=== PATIENT | female | born 1950 | race Caucasian/White ===

== ENCOUNTER 2020-06-12 12:39 | Outpatient (CLI) | payer MEDICARE, SELFPAY ==
--- NOTE | ~2020-06-12 | DEXA_ITS ---
Bone Density Report Name: Aida Nguyen Age: 69 Sex: Female Ethnicity: White Date of : 1950 Indication: postmenopausal; height loss; prior fracture; cancer; asthma or emphysema; hysterectomy; Referring Provider: RICHARD BLAS Study: Bone densitometry was performed. Exam Date: June 12, 2020 Accession number: [id number] Bone Density: Region BMD T-score Z-score Classification AP Spine (L1, L2, L3) 0.710 -2.8 -0.7 Osteoporosis Femoral Neck (Left) 0.485 -3.3 -1.5 Osteoporosis Total Hip (Left) 0.638 -2.5 -1.0 Osteoporosis Total Hip Bilateral Avg 0.616 -2.7 -1.2 Osteoporosis Femoral Neck (Right) 0.442 -3.7 -1.8 Osteoporosis Total Hip (Right) 0.592 -2.9 -1.3 Osteoporosis World Health Organization criteria for BMD impression classify patients as: Normal (T-score at or above -1.0), Osteopenia (T-score between -1.0 and -2.5), or Osteoporosis (T-score at or below -2.5). 10-year Fracture Risk: FRAX not reported because: Some T-score for Spine Total or Hip Total or Femoral Neck at or below -2.5 Clinical Information Provided by Patient: Has had a low trauma fracture Has the following medical conditions: Asthma or Emphysema, Cancer, Hysterectomy Patient maximum height was 61.5 Menopause Age: 37 Does not regularly consume dairy products Onset of menses at age 9 Number of children 0 Impression: The patient has established osteoporosis, based on the Right Femoral Neck T-score and the existence of a prior fracture. The patient has risk factors, including: previous fracture. Discussion: HIGH RISK OF FRACTURE. BONE DENSITY IS UNDESIRABLY LOW AT ONE OR MORE SKELETAL SITES, CONSISTENT WITH POSTMENOPAUSAL OSTEOPOROSIS. This patient's lowest T-score, in a patient who has previously fractured, meets the World Health Organization's (WHO) criteria for severe osteoporosis. In untreated patients, the risk of osteoporotic fracture increases approximately two-fold for each 1.0 SD decrease in T-score. Low bone density is not the only risk factor for fracture; also consider factors such as patient's age, frailty or poor health, risk of falling, risk of injury, previous osteoporotic fracture, family history of osteoporosis, cigarette smoking, low body weight, etc. Not everyone with low bone mineral density has osteoporosis; osteomalacia and other metabolic bone disorders should also be considered. Patients who have osteoporosis should be evaluated for specific diseases and conditions (secondary causes) that may cause or contribute to bone loss. The [place] [employer]ocr[employer] (AACE) and National Osteoporosis Foundation (NOF) recommend pharmacologic intervention for all postmenopausal women whose T-score is in this range. The patient should follow a healthful lifestyle (good nutrition with adequate calcium and vitamin D,
== END 2020-06-12 12:40 | disposition home or self-care (01) ==
LOC: ANHIMG 12:47
DX: Z78.0 Asymptomatic menopausal state (principal); M81.0 Age-related osteoporosis without current pathological fracture
CPT/HCPCS: 77080

== ENCOUNTER 2020-08-13 10:25 | Outpatient (CLI) | payer MEDICARE, SELFPAY ==
--- NOTE | ~2020-08-13 | XR_ITS ---
XR cervical spine 4-5V DATE: 08/13/2020 10:50 INDICATION: Bilateral arm numbness. Skin anesthesia. No recent injury. TECHNIQUE: Lateral, swimmer's, open-mouth, AP views COMPARISON: None FINDINGS: There is minimal anterolisthesis at C6-7. There is mild degenerative disc disease at C3-4 t hrough C5-6. C1 and C2 are normally aligned and the odontoid process is intact. No fracture or dislocation or lock ed facet or prevertebral soft tissue swelling is detected. IMPRESSION: Minimal anterolisthesis at C6-7 Mild degenerative disc disease of the mid cervical spine Reviewed, dictated and finalized at location A.
[2020-08-13 11:29] LABS: Basophils Percent Auto 0.7 % (0.2-1.2); Eosinophils Absolute Auto 0.4 K/mm3 (0-0.3); Eosinophils Percent Auto 6.7 % (0-4.4); Hematocrit 42.9 % (37.0-47.0); Hemoglobin 14.6 g/dL (12.0-15.0); Immature Granulocyte Absolute 0.02 K/mm3 (0.00-0.031); Immature Granulocyte Percent A 0.3 % (0-0.5); Lymphocytes Absolute Auto 2.03 K/mm3 (0.9-3.2); Lymphocytes Percent Auto 33.1 % (18.3-44.2); Mean Corpuscular Volume 94.1 fl (80-100); Mean Platelet Volume 11.2 fl (7.4-10.4); Monocytes Absolute Auto 0.5 K/mm3 (0.1-0.6); Monocytes Percent Auto 7.5 % (2.6-8.5); Neutrophils Absolute Auto 3.2 K/mm3 (1.3-6.7); Neutrophils Percent Auto 51.7 % (45.5-73.1); Platelet Count Result 219 k/mm3 (150-375); Red Blood Count 4.56 M/mm3 (4.2-5.4); Red Cell Distribution Width 14.2 % (11.5-14.5); White Blood Count 6.1 K/mm3 (4.5-10.0)
[2020-08-13 11:40] LABS: Alanine Aminotransferase 25 U/L (4-35); Albumin Level 4.3 g/dL (3.5-5.1); Alkaline Phosphatase 74 U/L (38-126); Anion Gap 7 mmol/L (8-16); Aspartate Amino Transferase 27 U/L (14-36); Bilirubin,Total 0.8 mg/dL (0.2-1.3); Blood Urea Nitrogen 10 mg/dL (7-17); Calcium 9.5 mg/dL (8.4-10.2); Carbon Dioxide 27 mmol/L (22-30); Chloride 105 mmol/L (98-107); Estimated Glomerular Filt Rate > 60; Glucose 95 mg/dL (65-105); Potassium 3.9 mmol/L (3.4-5.0); Sodium 139 mmol/L (137-145)
== END 2020-08-13 10:26 | disposition home or self-care (01) ==
PROVIDERS: PCP Family Medicine; Visit Provider Family Medicine
DX: I25.10 Atherosclerotic heart disease of native coronary artery without angina pectoris (principal); R20.0 Anesthesia of skin; M89.8X9 Other specified disorders of bone, unspecified site; M50.30 Other cervical disc degeneration, unspecified cervical region
CPT/HCPCS: 36415; 72050; 80053; 82607; 85025

== ENCOUNTER 2020-09-30 10:36 | Outpatient (CLI) | payer MEDICARE, SELFPAY | END 2020-09-30 10:37 | disposition home or self-care (01) | LOC: ANHLAB 10:40 | PROVIDERS: PCP Family Medicine; Visit Provider Nurse Practitioner Family | DX: E53.8 Deficiency of other specified B group vitamins (principal) | CPT/HCPCS: 36415; 82607 ==

== ENCOUNTER 2020-11-08 08:46 | Outpatient (CLI) | payer MEDICARE, SELFPAY ==
--- NOTE | 2020-11-08 | EST_ITS ---
Patient Info Name: Aida Nguyen Age: 69 years : 1950 Gender: Female Ht: 61 in Wt: 109 lbs BSA: 1.46 m2 Exam Date: 11/08/2020 9:55 AM Exam Location: [facility] Stress Patient Status: Outpatient Admit Date: 11/08/2020 Staff Ordering Physician: Esteban Dueñas MD Attending Provider: Esteban Dueñas MD Exercise Technologist: Gloria Jacobs RDCS Exercise Physician: Perez Lerma DO Exam Type: CA stress oneyda w NM Study Info Indications I25.119 - Atherosclerotic heart disease of [place] coronary artery with unspecified angina pectoris A regadenoson stress test was performed. Summary 1. 1. Negative lexiscan stress test for ischemic ST changes by ECG criteria. 2. 2. Stable hemodynamics throughout the test. 3. 3. Nuclear scan to follow and will be reported separately. Please correlate with it. 4. 4. Patient informed of the above results. Protocol: Lexiscan Stress ECG Details Stage: REST Duration (min): 4 min : 17 sec HR (bpm): 63 SBP (mmHg): 140 DBP (mmHg): 72 Stage: REST Duration (min): 14 min : 39 sec HR (bpm): 65 SBP (mmHg): 140 DBP (mmHg): 72 Stage: STAGE 1 Duration (min): 1 min : 0 sec HR (bpm): 67 SBP (mmHg): 145 DBP (mmHg): 69 Stage: RECOVERY Duration (min): 1 min : 0 sec HR (bpm): 88 SBP (mmHg): 122 DBP (mmHg): 59 Stage: RECOVERY Duration (min): 2 min : 0 sec HR (bpm): 89 SBP (mmHg): 122 DBP (mmHg): 59 Stage: RECOVERY Duration (min): 3 min : 0 sec HR (bpm): 87 SBP (mmHg): 126 DBP (mmHg): 61 Stage: RECOVERY Duration (min): 4 min : 0 sec HR (bpm): 86 SBP (mmHg): 126 DBP (mmHg): 61 Stage: RECOVERY Duration (min): 5 min : 0 sec HR (bpm): 86 SBP (mmHg): 131 DBP (mmHg): 68 Stage: RECOVERY Duration (min): 6 min : 0 sec HR (bpm): 84 SBP (mmHg): 131 DBP (mmHg): 68 Stage: RECOVERY Duration (min): 6 min : 47 sec HR (bpm): 81 SBP (mmHg): 128 DBP (mmHg): 68 Rest HR: 65 bpm Peak HR: 90 bpm Rest Sys BP: 140 mmHg Peak Sys BP: 145 mmHg Max Pred HR: 150 bpm % Max Pred HR: 60 % Target HR: 128 bpm Max RPP: 13,050 bpm*mmHg Termination Reason: Completed protocol Cardiac Symptoms: Shortness of breath, Upset stomach Total Time: 1 min : 0 sec Rest Lozoya BP: 72 mmHg Peak Lozoya BP: 69 mmHg Total Dose: 0.4 mg Resting ECG Sinus rhythm. Stress ECG No ST changes. Arrhythmias None. Report Signatures
--- NOTE | ~2020-11-08 | NM_ITS ---
EXAMINATION: NM oneyda stress w perfusion DATE: 11/08/2020 11:00 INDICATION: Coronary atherosclerosis. TECHNIQUE: Rest images were obtained following intravenous administration of 9.58 mCi Tc99m tetrofosm in (Myoview). The patient was infused intravenously with Lexiscan (regadenoson). Then, 30.7 mCi Tc99m tetrofosmin (Myoview) was administered intravenously, and stress images were obtained. Data was priya nstructed into short axis and horizontal and vertical long axis SPECT images. Gated SPECT images were also obtained. COMPARISON: Myocardial perfusion imaging 03/02/2019 FINDINGS: There is no definite reversible or fixed perfusion abnormality to suggest ischemia or infar ction. There is no segmental wall motion abnormality. Left ventricular ejection fraction measures > 70%. IMPRESSION: 1. No definite ischemia or infarct. 2. Normal left ventricular ejection fraction measuring >70%. Reviewed, dictated and finalized at location A.
== END 2020-11-08 08:47 | disposition home or self-care (01) ==
PROVIDERS: PCP Family Medicine
DX: I25.119 Atherosclerotic heart disease of native coronary artery with unspecified angina pectoris (principal)
CPT/HCPCS: 78452; 93017; A9502; J2785

== ENCOUNTER 2020-11-21 11:05 | Outpatient (CLI) | payer MEDICARE, SELFPAY ==
[2020-11-21 12:23] LABS: Rheumatoid Factor < 8.6 IU/ML (<12)
[2020-11-21 13:03] LABS: Erythrocyte Sedimentation Rate 6 mm/hr (0-20)
[2020-11-24 12:46] LABS: CRP, High Sensitivity 0.9 mg/L (***)
== END 2020-11-21 11:06 | disposition home or self-care (01) ==
PROVIDERS: PCP Family Medicine; Visit Provider Family Medicine
DX: M89.8X9 Other specified disorders of bone, unspecified site (principal)
CPT/HCPCS: 36415; 85652; 86038; 86141; 86430

== ENCOUNTER 2021-01-08 10:44 | Outpatient (CLI) | payer MEDICARE, SELFPAY ==
[2021-01-08 12:10] LABS: Free T4 Free Thyroxine 0.93 ng/mL (0.78-2.19)
[2021-01-08 13:29] LABS: Thyroid Stimulating Hormone 0.971 uIU/mL (0.465-4.680)
== END 2021-01-08 10:45 | disposition home or self-care (01) ==
LOC: ANHLAB 10:45
PROVIDERS: PCP Family Medicine; Visit Provider Family Medicine
DX: R53.83 Other fatigue (principal)
CPT/HCPCS: 36415; 84439; 84443

== ENCOUNTER 2021-03-28 09:07 | Emergency (ER) | payer MEDICARE, SELFPAY ==
[2021-03-28 09:31] VITALS: BP 135/79; PULSE 57; RESP 18; TEMP 36.4; O2SAT 96
--- NOTE | 2021-03-28 09:50 | ED.URI ---
HPI - URI/Sore Throat General Chief Complaint: Upper Respiratory Infection Stated Complaint: Possible pneumonia Time Seen by Provider: 03/28/21 09:35 Source: patient, RN notes reviewed and old records reviewed Mode of arrival: ambulatory Limitations: no limitations History of Present Illness MD elicited complaint: cough, nasal congestion and sinus pain Pertinent past history: pneumonia and sinusitis Onset (ago): week(s) (1) Severity: mild Pain scale (0-10): 0 Able to tolerate fluids by mouth: Yes Exacerbating factors: nothing Relieving factors: nothing Associated symptoms: denies other symptoms Treatments prior to arrival: none Related Data Home Medications Medication Instructions Recorded Confirmed atorvastatin 20 mg tablet 20 mg PO DAILY 08/13/20 03/28/21 [id number]-ifyrcjhieacim-zlqmtuuz 1 cap PO Q4H PRN 08/13/20 03/28/21 50 mg-300 mg-40 mg capsule carvedilol 6.25 mg tablet 6.25 mg PO Q12H 08/13/20 03/28/21 cilostazol 100 mg tablet 100 mg PO BID 08/13/20 03/28/21 diphenhydramine HCl 25 mg capsule 50 mg PO Q6H PRN cap 08/13/20 03/28/21 epinephrine 0.3 mg/0.3 mL 0.3 mg IM ONCE 08/13/20 03/28/21 injection, auto-injector fluticasone propionate 50 2 spray INTRANASAL DAILY 08/13/20 03/28/21 mcg/actuation nasal spray,suspension lisinopril 2.5 mg tablet 2.5 mg PO DAILY 08/13/20 03/28/21 nitroglycerin 0.4 mg sublingual 0.4 mg SUBLINGUAL Q5M PRN 08/13/20 03/28/21 tablet promethazine 25 mg tablet 25 mg PO Q6H PRN 08/13/20 03/28/21 ranolazine 500 mg tablet,extended 500 mg PO Q12H 08/13/20 03/28/21 release,12 hr calcium carbonate 600 mg-vitamin 1 tablet PO DAILY 12/26/20 03/28/21 D3 10 mcg (400 unit) tablet cyanocobalamin (vitamin B-12) 1,000 mcg PO DAILY 12/26/20 03/28/21 1,000 mcg capsule Allergies Allergy/AdvReac Type Severity Reaction Status Date / Time aspirin Allergy Unknown UNKNOWN Verified 03/28/21 09:41 caffeine Allergy Unknown UNKNOWN Verified 03/28/21 09:41 cephalexin Allergy Unknown UNKNOWN Verified 03/28/21 09:41 chlorzoxazone Allergy Unknown unknown Verified 03/28/21 09:41 codeine Allergy Unknown UNKNOWN Verified 03/28/21 09:41 doxycycline Allergy Unknown UNKNOWN Verified 03/28/21 09:41 guaifenesin Allergy Unknown UNKNOWN Verified 03/28/21 09:41 naratriptan Allergy Unknown UNKNOWN Verified 03/28/21 09:41 orphenadrine Allergy Unknown UNKNOWN Verified 03/28/21 09:41 Penicillins Allergy Unknown UNKNOWN Verified 03/28/21 09:41 prochlorperazine Allergy Unknown UNKNOWN Verified 03/28/21 09:41 propoxyphene Allergy Unknown UNKNOWN Verified 03/28/21 09:41 Sulfa (Sulfonamide Allergy Unknown unknown Verified 03/28/21 09:41 Antibiotics) tetracycline Allergy Unknown UNKNOWN Verified 03/28/21 09:41 iodine Allergy Anaphylaxis Verified 03/28/21 09:41 melon Allergy Unknown Verified 03/28/21 09:42 strawberry Allergy Anaphylaxis Verified 03/28/21 09:41 vaccine Allergy Unknown Uncoded 03/28/21 09:41 Review of Systems Review of Systems: All systems reviewed & are unremarkable except as noted in HPI and below PMFSH Past Medical History Medical History Bone pain Cervical spondylosis Coronary artery disease History of uterine cancer Low vitamin B12 level Migraine Numbness of extremity Osteoporosis Surgical History Surgical History History of heart artery stent History of hernia repair History of hysterectomy History of laminectomy History of laparoscopic appendectomy History of tonsillectomy and adenoidectomy Family History Family History Other Alcohol abuse Asthma Heart disease Hypertension Social History Social History Alcohol intake: current Exam Const: General: no acute distress and alert Orientation/consciousness: patient oriented x3 HENMT: Head: n
[2021-03-28] MEDS: ACETAMINOPHEN 325 MG TABLET 650 MG PO (09:54)
[2021-03-28 10:25] VITALS: BP 134/76; PULSE 72; RESP 16; O2SAT 95
== END 2021-03-28 10:26 | disposition home or self-care (01) ==
PROVIDERS: Emergency Provider Emergency Medicine; PCP Family Medicine
DX: J01.90 Acute sinusitis, unspecified (principal); J06.9 Acute upper respiratory infection, unspecified; I25.10 Atherosclerotic heart disease of native coronary artery without angina pectoris; M81.0 Age-related osteoporosis without current pathological fracture
CPT/HCPCS: 99283; A9270

== ENCOUNTER 2021-07-30 09:12 | Emergency (ER) | payer MEDICARE, SELFPAY ==
[2021-07-30 09:18] VITALS: BP 141/79; PULSE 77; RESP 18; TEMP 37.4; O2SAT 99
--- NOTE | 2021-07-30 09:48 | ED.SKABFB ---
HPI - Skin/Abscess/Foreign Bdy General Chief complaint: Skin/Abscess/Foreign Body Stated complaint: Insect Bites Time Seen by Provider: 07/30/21 10:02 Source: patient and RN notes reviewed Mode of arrival: ambulatory Limitations: no limitations History of Present Illness HPI narrative: 70-year-old female presents concern for insect bites that she fears is infected. She reports she received the bites yesterday, has been using Benadryl 50 mg every 4 hours without improvement. She reports the bite in her right axillary area is tender, becoming more red and swollen. She reports a center scab. She reports history of staph infection after an insect bite. She denies other intervention. She denies swollen lips, swollen tongue, trouble breathing. She denies fever, body aches, chills, sweats MD complaint: insect bite/sting Related Data Home Medications Medication Instructions Recorded Confirmed atorvastatin 20 mg tablet 20 mg PO DAILY 08/13/20 07/29/21 avtpwendoo-csmujawhlswwo-rnylunpu 1 cap PO Q4H PRN 08/13/20 07/29/21 50 mg-300 mg-40 mg capsule carvedilol 6.25 mg tablet 6.25 mg PO Q12H 08/13/20 07/29/21 cilostazol 100 mg tablet 100 mg PO BID 08/13/20 07/29/21 diphenhydramine HCl 25 mg capsule 50 mg PO Q6H PRN cap 08/13/20 07/29/21 epinephrine 0.3 mg/0.3 mL 0.3 mg IM ONCE PRN 08/13/20 07/29/21 injection, auto-injector fluticasone propionate 50 2 spray INTRANASAL DAILY 08/13/20 07/29/21 mcg/actuation nasal spray,suspension lisinopril 2.5 mg tablet 2.5 mg PO DAILY 08/13/20 07/29/21 nitroglycerin 0.4 mg sublingual 0.4 mg SUBLINGUAL Q5M PRN 08/13/20 07/29/21 tablet ranolazine 500 mg tablet,extended 500 mg PO Q12H 08/13/20 07/29/21 release,12 hr calcium carbonate 600 mg-vitamin 1 tablet PO DAILY 12/26/20 07/29/21 D3 10 mcg (400 unit) tablet cyanocobalamin (vitamin B-12) 1,000 mcg PO DAILY 12/26/20 07/29/21 1,000 mcg capsule Allergies Allergy/AdvReac Type Severity Reaction Status Date / Time tizanidine Allergy Mild Unknown Verified 07/30/21 09:41 aspirin Allergy Unknown UNKNOWN Verified 07/30/21 09:41 caffeine Allergy Unknown UNKNOWN Verified 07/30/21 09:41 cephalexin Allergy Unknown UNKNOWN Verified 07/30/21 09:41 chlorzoxazone Allergy Unknown unknown Verified 07/30/21 09:41 codeine Allergy Unknown UNKNOWN Verified 07/30/21 09:41 doxycycline Allergy Unknown UNKNOWN Verified 07/30/21 09:41 guaifenesin Allergy Unknown UNKNOWN Verified 07/30/21 09:41 naratriptan Allergy Unknown UNKNOWN Verified 07/30/21 09:41 orphenadrine Allergy Unknown UNKNOWN Verified 07/30/21 09:41 Penicillins Allergy Unknown UNKNOWN Verified 07/30/21 09:41 prochlorperazine Allergy Unknown UNKNOWN Verified 07/30/21 09:41 propoxyphene Allergy Unknown UNKNOWN Verified 07/30/21 09:41 Sulfa (Sulfonamide Allergy Unknown unknown Verified 07/30/21 09:41 Antibiotics) tetracycline Allergy Unknown UNKNOWN Verified 07/30/21 09:41 iodine Allergy Anaphylaxis Verified 07/30/21 09:41 melon Allergy Unknown Verified 07/30/21 09:41 strawberry Allergy Anaphylaxis Verified 07/30/21 09:41 vaccine Allergy Unknown Uncoded 07/29/21 16:01 Review of Systems Review of Systems: CONSTITUTIONAL: Denies malaise, chills, sweats, or fever. EYES: Denies redness, or discharge. ENT: Denies rhinorrhea, congestion, swollen lips, swollen tongue CARDIOVASCULAR: Denies chest pain, palpitations, or edema. RESPIRATORY: Denies cough or dyspnea. GASTROINTESTINAL: Denies abdominal pain, nausea, vomiting SKIN: Reports an insect bite on her left arm that is red and itchy, reports an insect bite in her right axillary area that is tender, red, swollen. MUSCULOSKELETAL: Denies joint painor myalgia. NEUROLOGIC: Denies headache. All systems reviewed & are unremarkable except as noted in HPI and below PMFSH Past Medical History Medical History (Updated 07/30/21 @ 10:08 by Oanh Fang NP) Bone pain Bronchitis Cervical spondylosis Coronary artery disease History of uterine cancer
== END 2021-07-30 10:18 | disposition home or self-care (01) ==
PROVIDERS: Emergency Provider Nurse Practitioner; PCP Family Medicine
DX: L03.319 Cellulitis of trunk, unspecified (principal); S40.861A Insect bite (nonvenomous) of right upper arm, initial encounter; W57.XXXA Bitten or stung by nonvenomous insect and other nonvenomous arthropods, initial encounter; M47.812 Spondylosis without myelopathy or radiculopathy, cervical region; I25.10 Atherosclerotic heart disease of native coronary artery without angina pectoris; M81.0 Age-related osteoporosis without current pathological fracture
CPT/HCPCS: 99213; G0463

== ENCOUNTER 2021-08-18 01:53 | Day surgery (SDC) | payer MEDICARE, SELFPAY ==
[2021-07-21 09:00] VITALS: BMI 19.8
--- NOTE | 2021-07-29 16:03 | PC.NURSE ---
Spoke with pt re rescheduled EGD. Update pt on new procedure date/time/arrival time. Pt verbalized understanding. Pt denies any changes to home medications or health history since previous PAT call complete.
--- NOTE | 2021-08-18 07:10 | PM.HPGS ---
History of Present Illness History of Present Illness Consent: Risks, benefits, and alternatives have been discussed and questions answered. Patient agrees to proceed with procedure. Chief complaint: N & V Narrative: Aida Nguyen is a 70 year old female With nausea and vomiting. She has also been having upper abdominal pain. the pain is not related to meals. She has had chronic nausea since she was treated for uterine cancer about 30 years ago. That treatment included radiation therapy, both external and implanted rods. More recently however she has experienced more nausea than she ever has in the past. This began in March when she believes that she may have had COVID Review of Systems Review of Systems: All systems reviewed & are unremarkable except as noted in HPI and below PMFSH Past Medical History Medical History Asthma Bone pain Bronchitis Cervical spondylosis CHF (congestive heart failure) 2019 echo nl ef, mild lvh, pa 27 mmHg Coronary artery disease History of uterine cancer HTN (hypertension) Hyperlipidemia Low vitamin B12 level Migraine Nausea & vomiting Numbness of extremity Osteoporosis Surgical History Surgical History History of heart artery stent History of hernia repair History of hysterectomy History of laminectomy History of laparoscopic appendectomy History of tonsillectomy and adenoidectomy Family History Family History Other Alcohol abuse Asthma Heart disease Hypertension Social History Social History Alcohol intake: current Drinks per week: 1 Alcohol use details: COCKTAILS Substance use: never Substance use type: does not use Living arrangements: alone Spiritual care concerns: No Meds Home Medications and Allergies Home Medications Medication Instructions Recorded Confirmed Type atorvastatin 20 mg tablet 20 mg PO DAILY 08/13/20 07/30/21 History odoxeexqdd-pqlspfongcdst-nhibudik 1 cap PO Q4H PRN Wound Healing 08/13/20 07/30/21 History 50 mg-300 mg-40 mg capsule (Fioricet) carvedilol 6.25 mg tablet 6.25 mg PO Q12H 08/13/20 07/30/21 History cilostazol 100 mg tablet 100 mg PO BID 08/13/20 07/30/21 History diphenhydramine HCl 25 mg capsule 50 mg PO Q6H PRN Allergy Symptoms 08/13/20 07/30/21 History (Benadryl) epinephrine 0.3 mg/0.3 mL 0.3 mg IM ONCE PRN Allergic 08/13/20 07/30/21 History injection, auto-injector Reaction fluticasone propionate 50 2 spray intranasal DAILY 08/13/20 07/29/21 History mcg/actuation nasal spray,suspension (Flonase Allergy Relief) lisinopril 2.5 mg tablet 2.5 mg PO DAILY 08/13/20 07/30/21 History nitroglycerin 0.4 mg sublingual 0.4 mg sublingual Q5M PRN Chest 08/13/20 07/30/21 History tablet Pain ranolazine 500 mg tablet,extended 500 mg PO Q12H 08/13/20 07/30/21 History release,12 hr calcium carbonate 600 mg-vitamin 1 tablet PO DAILY 12/26/20 07/30/21 History D3 10 mcg (400 unit) tablet (Calcium with Vitamin D) cyanocobalamin (vitamin B-12) 1,000 mcg PO DAILY 12/26/20 07/30/21 History 1,000 mcg capsule ondansetron HCl 4 mg tablet 4 mg PO Q8H PRN nausea and 04/22/21 07/30/21 Rx vomiting #20 tabs hydrocodone 5 mg-acetaminophen 325 1 tablet PO Q6H PRN migraine 06/05/21 07/30/21 Rx mg tablet headache #30 tabs famotidine 20 mg tablet 20 mg PO DAILY #30 tabs 07/03/21 07/30/21 Rx albuterol sulfate 90 mcg/actuation 1 inh inhalation Q4H PRN shortness 07/07/21 07/30/21 Rx aerosol inhaler of breath or wheezing #8.5 grams triamcinolone acetonide 0.1 % 1 applic topical BID 7 days #80 07/30/21 08/18/21 Rx topical cream grams Allergies Allergy/AdvReac Type Severity Reaction Status Date / Time tizanidine Allergy Mild Unknown Verified 08/18/21 09:38 aspirin Allergy Unkn
--- NOTE | 2021-08-18 08:55 | WPDANESEPPF ---
Anes - Initial Pre Proc Eval Procedure: Operation Date: 08/18/21 10:30 Proposed Procedures p Esophagogastroduodenoscopy - Van Knight MD Date/Time: 08/18/21 08:55 Surgeon: Van Knight MD Pre Op Diagnosis: N & V Patient Data Age: 70 Gender: F Height: 1.55 m Weight: 47.5 kg Allergies Allergy/AdvReac Type Severity Reaction Status Date / Time tizanidine Allergy Mild Unknown Verified 08/18/21 09:38 aspirin Allergy Unknown UNKNOWN Verified 08/18/21 09:38 caffeine Allergy Unknown UNKNOWN Verified 08/18/21 09:38 cephalexin Allergy Unknown UNKNOWN Verified 08/18/21 09:38 chlorzoxazone Allergy Unknown unknown Verified 08/18/21 09:38 codeine Allergy Unknown UNKNOWN Verified 08/18/21 09:38 doxycycline Allergy Unknown UNKNOWN Verified 08/18/21 09:38 guaifenesin Allergy Unknown UNKNOWN Verified 08/18/21 09:38 naratriptan Allergy Unknown UNKNOWN Verified 08/18/21 09:38 orphenadrine Allergy Unknown UNKNOWN Verified 08/18/21 09:38 Penicillins Allergy Unknown UNKNOWN Verified 08/18/21 09:38 prochlorperazine Allergy Unknown UNKNOWN Verified 08/18/21 09:38 propoxyphene Allergy Unknown UNKNOWN Verified 08/18/21 09:38 Sulfa (Sulfonamide Allergy Unknown unknown Verified 08/18/21 09:38 Antibiotics) tetracycline Allergy Unknown UNKNOWN Verified 08/18/21 09:38 iodine Allergy Anaphylaxis Verified 08/18/21 09:38 melon Allergy Unknown Verified 08/18/21 09:38 strawberry Allergy Anaphylaxis Verified 08/18/21 09:38 vaccine Allergy Unknown Uncoded 07/29/21 16:01 Home Medications Medication Instructions Recorded Confirmed Type atorvastatin 20 mg tablet 20 mg PO DAILY 08/13/20 07/30/21 History qhjpemsdya-iwkmloznazdpd-ekdasvtc 1 cap PO Q4H PRN Wound Healing 08/13/20 07/30/21 History 50 mg-300 mg-40 mg capsule (Fioricet) carvedilol 6.25 mg tablet 6.25 mg PO Q12H 08/13/20 07/30/21 History cilostazol 100 mg tablet 100 mg PO BID 08/13/20 07/30/21 History diphenhydramine HCl 25 mg capsule 50 mg PO Q6H PRN Allergy Symptoms 08/13/20 07/30/21 History (Benadryl) epinephrine 0.3 mg/0.3 mL 0.3 mg IM ONCE PRN Allergic 08/13/20 07/30/21 History injection, auto-injector Reaction fluticasone propionate 50 2 spray intranasal DAILY 08/13/20 07/29/21 History mcg/actuation nasal spray,suspension (Flonase Allergy Relief) lisinopril 2.5 mg tablet 2.5 mg PO DAILY 08/13/20 07/30/21 History nitroglycerin 0.4 mg sublingual 0.4 mg sublingual Q5M PRN Chest 08/13/20 07/30/21 History tablet Pain ranolazine 500 mg tablet,extended 500 mg PO Q12H 08/13/20 07/30/21 History release,12 hr calcium carbonate 600 mg-vitamin 1 tablet PO DAILY 12/26/20 07/30/21 History D3 10 mcg (400 unit) tablet (Calcium with Vitamin D) cyanocobalamin (vitamin B-12) 1,000 mcg PO DAILY 12/26/20 07/30/21 History 1,000 mcg capsule ondansetron HCl 4 mg tablet 4 mg PO Q8H PRN nausea and 04/22/21 07/30/21 Rx vomiting #20 tabs hydrocodone 5 mg-acetaminophen 325 1 tablet PO Q6H PRN migraine 06/05/21 07/30/21 Rx mg tablet headache #30 tabs famotidine 20 mg tablet 20 mg PO DAILY #30 tabs 07/03/21 07/30/21 Rx albuterol sulfate 90 mcg/actuation 1 inh inhalation Q4H PRN shortness 07/07/21 07/30/21 Rx aerosol inhaler of breath or wheezing #8.5 grams triamcinolone acetonide 0.1 % 1 applic topical BID 7 days #80 07/30/21 08/18/21 Rx topical cream grams Patient hx anesthesia problems: none Family hx anesthesia problems: none Results Review: All pre-operative results and documents have been reviewed as part of the pre-operative evaluation. [facility] Past Medical History Medical History (Updated 08/18/21 @ 09:03 by Stoney Craig MD) Asthma Bone pain Bronchitis Cervical spondylosis CHF (congestive heart failure) 2019 echo nl ef, mild lvh, pa 27 mmHg Coronary artery disease History of uterine cancer HTN (hypertension) Hyperlipidemia Low vitamin B12 level Migraine Nausea & vomiting Numbness of extremity Osteoporosis Surgi
[2021-08-18 09:40] VITALS: BP 157/93; PULSE 77; RESP 20; TEMP 36.3; O2SAT 99; BMI 19.5
[2021-08-18] MEDS: LACTATED RINGERS 1,000 ML 150 ML IV CONT (09:51)
[2021-08-18 10:17] VITALS: BP 116/66; PULSE 69; RESP 23; O2SAT 98
[2021-08-18 10:27] VITALS: BP 88/56; PULSE 65; RESP 20; O2SAT 96
[2021-08-18 10:37] VITALS: BP 112/68; PULSE 69; RESP 17; O2SAT 98
== END 2021-08-18 10:50 | disposition home or self-care (01) ==
PROVIDERS: PCP Family Medicine; Visit Provider Internal Medicine Gastroenterology
PROC: 0DJ08ZZ Inspection of Upper Intestinal Tract, Via Natural or Artificial Opening Endoscopic (ICD-10-PCS; CPT 43235; principal; 2021-08-18 10:30)
DX: K22.70 Barrett's esophagus without dysplasia (principal); K44.9 Diaphragmatic hernia without obstruction or gangrene; J45.909 Unspecified asthma, uncomplicated; I11.0 Hypertensive heart disease with heart failure; I50.9 Heart failure, unspecified; I25.10 Atherosclerotic heart disease of native coronary artery without angina pectoris; Z85.42 Personal history of malignant neoplasm of other parts of uterus; E78.5 Hyperlipidemia, unspecified; E53.8 Deficiency of other specified B group vitamins; M81.0 Age-related osteoporosis without current pathological fracture; Z95.5 Presence of coronary angioplasty implant and graft; Z79.51 Long term (current) use of inhaled steroids
CPT/HCPCS: 43239; 87081; 88305; J2704; J7120

== ENCOUNTER 2021-12-05 09:36 | Outpatient (CLI) | payer MEDICARE, SELFPAY ==
[2021-12-05 10:47] LABS: Basophils Absolute Auto 0.1 K/mm3 (0.0-0.1); Basophils Percent Auto 0.9 % (0.2-1.2); Eosinophils Absolute Auto 0.4 K/mm3 (0-0.3); Eosinophils Percent Auto 6.2 % (0-4.4); Hematocrit 42.1 % (37.0-47.0); Hemoglobin 13.8 g/dL (12.0-15.0); Immature Granulocyte Absolute 0.02 K/mm3 (0.00-0.031); Immature Granulocyte Percent A 0.3 % (0-0.5); Lymphocytes Absolute Auto 1.55 K/mm3 (0.9-3.2); Lymphocytes Percent Auto 26.5 % (18.3-44.2); Mean Corpuscular HGB Conc 32.8 g/dl (32-36); Mean Corpuscular Hemoglobin 31.7 pg (26-34); Mean Corpuscular Volume 96.6 fl (80-100); Monocytes Absolute Auto 0.4 K/mm3 (0.1-0.6); Monocytes Percent Auto 6.2 % (2.6-8.5); Neutrophils Absolute Auto 3.5 K/mm3 (1.3-6.7); Neutrophils Percent Auto 59.9 % (45.5-73.1); Platelet Count Result 206 k/mm3 (150-375); Red Blood Count 4.36 M/mm3 (4.2-5.4); Red Cell Distribution Width 13.8 % (11.5-14.5); White Blood Count 5.9 K/mm3 (4.5-10.0)
[2021-12-05 10:54] LABS: Alanine Aminotransferase 21 U/L (6-35); Albumin Level 3.9 g/dL (3.5-5.1); Alkaline Phosphatase 61 U/L (38-126); Anion Gap 9 mmol/L (8-16); Aspartate Amino Transferase 23 U/L (14-36); Bilirubin,Total 0.9 mg/dL (0.2-1.3); Blood Urea Nitrogen 11 mg/dL (7-17); Calcium 8.9 mg/dL (8.4-10.2); Carbon Dioxide 26 mmol/L (22-30); Chloride 104 mmol/L (98-107); Cholesterol 150 mg/dL (0-200); Estimated Glomerular Filt Rate > 60; Glucose 94 mg/dL (65-110); HDL Direct 89 mg/dL; Potassium 3.9 mmol/L (3.4-5.0); Sodium 139 mmol/L (137-145); Triglycerides 68 mg/dL (<150)
[2021-12-05 11:05] LABS: LDL Cholesterol Direct 44 mg/dL
== END 2021-12-05 09:37 | disposition home or self-care (01) ==
PROVIDERS: PCP Family Medicine; Visit Provider Family Medicine
DX: E78.5 Hyperlipidemia, unspecified (principal); E53.8 Deficiency of other specified B group vitamins; I10 Essential (primary) hypertension; Z13.220 Encounter for screening for lipoid disorders
CPT/HCPCS: 36415; 80048; 80061; 80076; 82607; 84443; 85025

== ENCOUNTER 2022-02-17 07:17 | Outpatient (CLI) | payer MEDICARE, SELFPAY ==
--- NOTE | 2022-02-17 | EST_ITS ---
Patient Info Name: Aida Nguyen Age: 71 years : 1950 Gender: Female Ht: 61 in Wt: 107 lbs BSA: 1.45 m2 Exam Date: 02/17/2022 9:42 AM Exam Location: [facility] Stress Patient Status: Outpatient Admit Date: 02/17/2022 Staff Ordering Physician: RICHARD ARLELANO MD Attending Provider: Delbert Gibson MD Exercise Technologist: Dinah Cruz CT Nurse: MITCHELL MARCH NP Exam Type: CA stress oneyda w NM Study Info Indications I25.118 - Atherosclerotic heart disease of [place] coronary artery with other forms of angina pectoris A regadenoson stress test was performed. Summary 1. No abnormal ST/T wave changes diagnostic of ischemia with Lexiscan. 2. Occasional PVCs. 3. Please correlate with nuclear medicine images, reported separately. Protocol: Lexiscan Stress ECG Details Stage: REST Duration (min): 1 min : 54 sec HR (bpm): 67 SBP (mmHg): 152 DBP (mmHg): 73 Stage: REST Duration (min): 4 min : 24 sec HR (bpm): 70 SBP (mmHg): 152 DBP (mmHg): 73 Stage: STAGE 1 Duration (min): 0 min : 59 sec HR (bpm): 67 SBP (mmHg): 140 DBP (mmHg): 76 Stage: RECOVERY Duration (min): 1 min : 0 sec HR (bpm): 94 SBP (mmHg): 140 DBP (mmHg): 76 Stage: RECOVERY Duration (min): 2 min : 0 sec HR (bpm): 96 SBP (mmHg): 140 DBP (mmHg): 76 Stage: RECOVERY Duration (min): 3 min : 0 sec HR (bpm): 96 SBP (mmHg): 131 DBP (mmHg): 70 Stage: RECOVERY Duration (min): 3 min : 15 sec HR (bpm): 98 SBP (mmHg): 131 DBP (mmHg): 70 Rest HR: 70 bpm Peak HR: 97 bpm Rest Sys BP: 152 mmHg Peak Sys BP: 140 mmHg Max Pred HR: 148 bpm % Max Pred HR: 66 % Target HR: 126 bpm Max RPP: 13,580 bpm*mmHg Total Time: 1 min : 0 sec Rest Lozoya BP: 73 mmHg Peak Lozoya BP: 76 mmHg Total Dose: 0.4 mg Resting ECG Sinus rhythm. Incomplete right bundle branch block. Nonspecific ST and T wave abnormality. Stress ECG Sinus rhythm. Incomplete right bundle branch block. No abnormal ST/T wave changes diagnostic of ischemia with Lexiscan. Arrhythmias Occasional PVCs. Report Signatures
--- NOTE | 2022-02-17 | ECHO_ITS ---
Patient Info Name: Aida Nguyen Age: 71 years : 1950 Gender: Female Ht: 61 in Wt: 107 lbs BSA: 1.45 m2 HR: 68 bpm BP: 138 / 75 mmHg Heart Rhythm: Sinus Rhythm Technical Quality: Fair Exam Date: 02/17/2022 8:14 AM Exam Location: [facility] Pulmonary Patient Status: Outpatient Admit Date: 02/17/2022 Staff Ordering Physician: RICHARD ARELLANO MD Job Counselor: Gloria Jacobs RDCS Attending Provider: RICHARD ARELLANO MD Referring Physician: EILEEN YEE; Exam Type: CA echo doppler color flow Study Info Indications R06.02 - Shortness of breath Complete two-dimensional, color flow and Doppler transthoracic echocardiogram is performed. Summary 1. Complete two-dimensional, color flow and Doppler transthoracic echocardiogram is performed. 2. Left ventricular chamber dimension is mildly enlarged. 3. Left ventricular systolic function is normal, estimated at 55-60%. 4. There is mildly increased left ventricular wall thickness. 5. The left ventricular diastolic function is grade I diastolic dysfunction. 6. Right ventricular systolic function is normal. 7. There is mild aortic valve regurgitation. Left Ventricle Left ventricular chamber dimension is mildly enlarged. Left ventricular systolic function is normal, estimated at 55-60%. There is mildly increased left ventricular wall thickness. The left ventricular diastolic function is grade I diastolic dysfunction. Global longitudinal strain is -17 %. Right Ventricle Right ventricular chamber dimension is normal. Right ventricular systolic function is normal. Left Atria Left atrial chamber dimension is normal. Right Atria Right atrial chamber dimension is normal. Atrial Septum Intact interatrial septum visualized by color flow imaging. Aortic Valve The aortic valve is not well visualized. There is no aortic valve stenosis. There is mild aortic valve regurgitation. Pulmonic Valve The pulmonic valve is not well visualized. Mitral Valve The mitral valve has normal leaflets. There is no mitral valve stenosis. There is trace mitral valve regurgitation. Tricuspid Valve The tricuspid valve leaflets are normal. There is no significant tricuspid valve stenosis. There is no tricuspid valve regurgitation. Pericardium/Pleural There is trivial pericardial effusion. Inferior Vena Cava Normal inferior vena cava with >50% collapse upon inspiration consistent with normal right atrial pressure. Aorta The aortic root size at the sinus of Valsalva is normal. Left Ventricular Outflow Tract Name Value Normal LVOT 2D LVOT Diameter 1.9 cm LVOT Doppler LVOT Peak Gradient 4 mmHg LVOT Mean Gradient 2 mmHg LVOT VTI 21 cm LVOT VTI/AV VTI Ratio 1.0 LVOT Stroke Volume 59 ml LVOT CO 3.9 l/min LVOT CI 2.7 l/min/m2 Pulmonic Valve Name
--- NOTE | ~2022-02-17 | NM_ITS ---
EXAMINATION: NM oneyda stress w perfusion DATE: 02/17/2022 10:28 INDICATION: Coronary artery disease with stable angina pectoris TECHNIQUE: Rest images were obtained following intravenous administration of 9.58 mCi Tc99m tetrofosm in (Myoview). The patient was infused intravenously with Lexiscan (Regadenoson). Then, 30.7 mCi Tc99m tetrofosmin (Myoview) was administered intravenously, and stress images were obtained. Data was priya nstructed into short axis and horizontal and vertical long axis SPECT images. Gated SPECT images were also obtained. COMPARISON: None. FINDINGS: There is no definite reversible or fixed perfusion abnormality to suggest ischemia or infar ction. There is normal left ventricular chamber size, wall motion and ejection fraction. Left ventr icular ejection fraction measures >70%. IMPRESSION: 1. Normal myocardial perfusion at rest and during stress. 2. Left ventricular ejection fraction measuring >70%. Reviewed, dictated and finalized at location A. INER
== END 2022-02-17 07:18 | disposition home or self-care (01) ==
PROVIDERS: PCP Family Medicine
DX: R06.02 Shortness of breath (principal); I25.118 Atherosclerotic heart disease of native coronary artery with other forms of angina pectoris; I35.1 Nonrheumatic aortic (valve) insufficiency
CPT/HCPCS: 78452; 93017; 93306; A9502; J2785

== ENCOUNTER 2022-03-18 10:09 | Emergency (ER) | payer MEDICARE, SELFPAY ==
--- NOTE | ~2022-03-18 | CT_ITS ---
Non-contrast Head CT History: Left-sided numbness, headache Technique: Axial non-contrast imaging of the brain was performed. Dose reduction technique was used on this scan by utilizing automated exposure control and iterative reconstruction technique. The dose -length product (DLP) was 605.33 mGy-cm. Findings: There is no evidence of intracranial hemorrhage, mass lesion, or acute infarct. Brain par enchyma appears normal. The ventricles and subarachnoid spaces are normal in size. The calvarium ap pears normal. The visualized paranasal sinuses and mastoid air cells are clear. Impression: No significant abnormality seen. Reviewed, dictated and finalized at [facility]. IFIED MIDWIFE Impression: No significant abnormality seen.
--- NOTE | ~2022-03-18 | XR_ITS ---
Clinical Indication: Chest tightness, shortness of breath PA and lateral views of the chest: Comparison: 01/09/2019 Findings: The lungs are clear, without evidence of focal consolidation or pleural effusion. Cardiome diastinal silhouette is within normal limits. Bones and soft tissues are unremarkable. Impression: Normal chest. Reviewed, dictated and finalized at [facility]. CE STENOGRAPHER Impression: Normal chest.
[2022-03-18 10:15] VITALS: BP 145/81; PULSE 90; RESP 18; TEMP 37; O2SAT 96
--- NOTE | 2022-03-18 10:35 | ECG_ITS ---
Measurements Intervals [place] Rate: 82 P: -12 MA: 146 QRS: -34 QRSD: 87 T: 29 QT: 393 QTc: 461 Interpretive Statements SINUS RHYTHM LEFT AXIS DEVIATION RSR' IN V1 OR V2, PROBABLY NORMAL VARIANT BORDERLINE ECG NO PREVIOUS ECG AVAILABLE FOR COMPARISON Electronically Signed On 03-18-2022 11:04:53 SUPERVISOR ELEMENTARY EDUCATION by Perez Lerma D.O.
--- NOTE | 2022-03-18 10:35 | ED.SOB ---
HPI - SOB/Dyspnea General Chief Complaint: Shortness of Breath/Dyspnea Stated Complaint: SOB TIGHTNESS IN CHEST Time Seen by Provider: 03/18/22 10:31 Source: patient Mode of arrival: ambulatory Limitations: no limitations History of Present Illness HPI Narrative: 71 year old female presents to the Emergency Department complaining of exertional shortness of breath for past several weeks. States has chest tightness associated with shortness of breath. States began having at rest yesterday. Had echo and nuclear stress test approximately a month ago, per patient. Does not know results. Denies fever, nausea, vomiting, diarrhea. No known exposure. MD elicited complaint: shortness of breath Onset (ago): week(s) Timing: intermittent Severity: moderate Exacerbating factors: exertion Relieving factors: rest Associated symptoms: chest pain Treatment prior to arrival: none Related Data Home oxygen amount: none Home Medications Medication Instructions Recorded Confirmed atorvastatin 20 mg tablet 20 mg PO DAILY 08/13/20 12/01/21 qcfrxaggpb-weywowowaqmuz-llfhrrhl 1 cap PO Q4H PRN Wound Healing 08/13/20 12/01/21 50 mg-300 mg-40 mg capsule (Fioricet) carvedilol 6.25 mg tablet 6.25 mg PO Q12H 08/13/20 12/01/21 diphenhydramine HCl 25 mg capsule 50 mg PO Q6H PRN Allergy Symptoms 08/13/20 12/01/21 (Benadryl) epinephrine 0.3 mg/0.3 mL 0.3 mg IM ONCE PRN Allergic 08/13/20 12/01/21 injection, auto-injector Reaction fluticasone propionate 50 2 spray intranasal DAILY 08/13/20 12/01/21 mcg/actuation nasal spray,suspension (Flonase Allergy Relief) lisinopril 2.5 mg tablet 2.5 mg PO DAILY 08/13/20 12/01/21 nitroglycerin 0.4 mg sublingual 0.4 mg sublingual Q5M PRN Chest 08/13/20 12/01/21 tablet Pain ranolazine 500 mg tablet,extended 500 mg PO Q12H 08/13/20 12/01/21 release,12 hr calcium carbonate 600 mg-vitamin 1 tablet PO DAILY 12/26/20 12/01/21 D3 10 mcg (400 unit) tablet (Calcium with Vitamin D) cyanocobalamin (vitamin B-12) 1,000 mcg PO DAILY 12/26/20 12/01/21 1,000 mcg capsule Allergies Allergy/AdvReac Type Severity Reaction Status Date / Time tizanidine Allergy Mild Unknown Verified 03/18/22 11:38 aspirin Allergy Unknown UNKNOWN Verified 03/18/22 11:38 caffeine Allergy Unknown UNKNOWN Verified 03/18/22 11:38 cephalexin Allergy Unknown UNKNOWN Verified 03/18/22 11:38 chlorzoxazone Allergy Unknown unknown Verified 03/18/22 11:38 codeine Allergy Unknown UNKNOWN Verified 03/18/22 11:38 doxycycline Allergy Unknown UNKNOWN Verified 03/18/22 11:38 guaifenesin Allergy Unknown UNKNOWN Verified 03/18/22 11:38 naratriptan Allergy Unknown UNKNOWN Verified 03/18/22 11:38 orphenadrine Allergy Unknown UNKNOWN Verified 03/18/22 11:38 Penicillins Allergy Unknown UNKNOWN Verified 03/18/22 11:38 prochlorperazine Allergy Unknown UNKNOWN Verified 03/18/22 11:38 propoxyphene Allergy Unknown UNKNOWN Verified 03/18/22 11:38 Sulfa (Sulfonamide Allergy Unknown unknown Verified 03/18/22 11:38 Antibiotics) tetracycline Allergy Unknown UNKNOWN Verified 03/18/22 11:38 Influenza Virus Vaccines Allergy Unknown Verified 03/18/22 11:38 iodine Allergy Anaphylaxis Verified 03/18/22 11:38 melon Allergy Unknown Verified 03/18/22 11:38 pneumococcal vaccine Allergy Unknown Verified 03/18/22 11:38 strawberry Allergy Anaphylaxis Verified 03/18/22 11:38 Tetanus Vaccines and Toxoid Allergy Anaphylaxis Verified 03/18/22 11:38 vaccine Allergy Unknown Uncoded 03/18/22 11:38 Review of Systems Review of Systems: All systems reviewed & are unremarkable except as noted in HPI and below Constitutional: Constitutional: Reports as per HPI, Reports no additional constitutional complaints, Denies chills and Denies fever(s) Eyes: Eyes: Reports as per HPI, Reports no additional eye complaints and Denies change in vision ENT: Reports system reviewed and no additional complaints, except as documented, Reports as per HPI, Denies nasal congestion and [place]
[2022-03-18 11:06] LABS: Basophils Absolute Auto 0.06 K/mm3 (0.00-0.10); Basophils Percent Auto 0.9 % (0.0-1.0); Eosinophils Absolute Auto 0.62 K/mm3 (0.02-0.50); Eosinophils Percent Auto 9.5 % (1.0-6.0); Hematocrit 42.2 % (35.0-42.0); Hemoglobin 14.5 g/dL (11.7-13.8); Immature Granulocyte Absolute 0.03 K/mm3 (0.00-0.00); Immature Granulocyte Percent A 0.5 % (0.0-0.0); Lymphocytes Absolute Auto 1.54 K/mm3 (1.10-4.50); Lymphocytes Percent Auto 23.5 % (18.0-42.0); Mean Corpuscular HGB Conc 34.4 g/dL (32.0-36.0); Mean Corpuscular Hemoglobin 32.2 pg (27.0-31.0); Mean Corpuscular Volume 93.6 fL (78.0-102.0); Mean Platelet Volume 10.4 fl (9.2-11.8); Monocytes Absolute Auto 0.65 K/mm3 (0.10-0.90); Monocytes Percent Auto 9.9 % (2.0-11.0); Neutrophils Absolute Auto 3.7 K/mm3 (1.7-7.2); Neutrophils Percent Auto 55.7 % (50.0-70.0); Platelet Count Result 227 K/mm3 (150-420); Red Blood Count 4.51 M/mm3 (4.20-5.40); Red Cell Distribution Width 13.2 % (11.6-14.4); White Blood Count 6.6 K/mm3 (4.8-10.8)
[2022-03-18 11:13] LABS: D Dimer 0.19 mg/L (0.19-0.50)
[2022-03-18 11:20] LABS: Lactic Acid Reflex 0.7 mmol/L (0.4-2.0)
[2022-03-18 11:24] LABS: Alanine Aminotransferase 20 U/L (14-59); Albumin Level 3.5 g/dL (3.4-5.0); Alkaline Phosphatase 81 U/L (46-116); Anion Gap 6 mmol/L (8-16); Aspartate Amino Transferase 11 U/L (15-37); Bilirubin,Total 0.6 mg/dL (0.00-1.00); Blood Urea Nitrogen 13 mg/dL (7-18); Carbon Dioxide 26 mmol/L (21-32); Chloride 105 mmol/L (98-108); Estimated CRCL calculation 40 ml/min; Estimated Glomerular Filt Rate > 60; Glucose 91 mg/dL (70-99); NT Pro B Type Natriuretic Pept 38 pg/mL (0-125); Osmolality Calculated 284 mOsm/kg (285-295); Potassium 3.8 mmol/L (3.5-5.1); Sodium 137 mmol/L (136-145); Total Protein 6.7 g/dL (6.4-8.2); Troponin I 10.2 ng/L (0.00-60.4)
[2022-03-18 11:33] VITALS: O2SAT 98
[2022-03-18 12:11] LABS: Influenza A QL RT-PCR Negative (Negative); Influenza B QL RT-PCR Negative (Negative); RSV RNA, RT-PCR Negative (Negative); SARS-CoV-2 RNA PCR Negative (Negative)
[2022-03-18 12:54] VITALS: BP 146/77; PULSE 77; RESP 20; TEMP 36.7; O2SAT 94
== END 2022-03-18 12:56 | disposition home or self-care (01) ==
PROVIDERS: Emergency Provider Emergency Medicine; PCP Family Medicine
DX: I25.10 Atherosclerotic heart disease of native coronary artery without angina pectoris (principal); R06.02 Shortness of breath; I11.0 Hypertensive heart disease with heart failure; I50.9 Heart failure, unspecified; E78.5 Hyperlipidemia, unspecified; J45.909 Unspecified asthma, uncomplicated; M81.0 Age-related osteoporosis without current pathological fracture; Z85.42 Personal history of malignant neoplasm of other parts of uterus; Z95.5 Presence of coronary angioplasty implant and graft; Z79.51 Long term (current) use of inhaled steroids; Z20.822 Contact with and (suspected) exposure to COVID-19
CPT/HCPCS: 36415; 70450; 71046; 80053; 83605; 83880; 84484; 85025; 85380; 87637; 93005; 99284

== ENCOUNTER 2022-04-22 10:31 | Outpatient (CLI) | payer MEDICARE, SELFPAY ==
--- NOTE | ~2022-04-22 | NM_ITS ---
Nuclear Medicine Procedure: Perfusion/Ventilation Lung Scan History: Pulmonary embolus. Interpretation: Ventilation portion of the exam was not performed due to Covid 19 precautions. 5.2 mCi. of Technetium-labeled microspheres were injected intravenously and multiple images obtained in 8 projections revealed normal perfusion to the lungs without any segmental or subsegmental defects . Impression: Normal perfusion lung scan. This excludes clinically significant pulmonary emboli. ............................................................... The following are reference parameters for VQ scan interpretation: 1. Normal or Near-Normal Lung Scan: This excludes clinically significant pulmonary embolism. Angiography is not necessary. 2. High Probability for Pulmonary Embolism: There is over 90% probability for acute pulmonary embolism. Angiography is not necessary for confirmation. 3. A. Intermediate (low end): Whereas unlikely to be PE based on V/Q scan alone, there is a 10-25% probability for pulmonary embolism (PE) based upon the level of clinical suspicion. B. Intermediate (high end): Depending upon the level of clinical suspicion, there is a 30-60% probability for pulmonary embolism. Reviewed, dictated and finalized at location . HOLDER Impression: Normal perfusion lung scan. This excludes clinically significant pu lmonary emboli. ............................................................... The following are reference parameters for VQ scan interpretation: 1. Normal or Near-Normal Lung Scan: This excludes clinically significant pulmonary embolism. Angiography is not necessary. 2. High Probability for Pulmonary Embolism: There is over 90% probability for acute pulmonary embolism. Angiography is not necessary for confirmation. 3. A. Intermediate (low end): Whereas unlikely to be PE based on V/Q scan alone, there is a 10-25% probability for pulmonary embolism (PE) based upon the level of clinical suspicion. B. Intermediate (high end): Depending upon the level of clinical suspicion, there is a 30-60% probability for pulmonary embolism.
--- NOTE | ~2022-04-22 | XR_ITS ---
Clinical Indication: Shortness of breath PA and lateral views of the chest: Comparison: 03/18/2022 Findings: The lungs are clear, without evidence of focal consolidation or pleural effusion. Cardiome diastinal silhouette is stable. Stable coronary stents versus atherosclerotic calcification Bones and soft tissues are unremarkable. Impression: Clear lungs. Stable coronary stents versus atherosclerotic calcification of the coronary vessels. Reviewed, dictated and finalized at location . F AIR DEFENSE OFFICER Impression: Clear lungs. Stable coronary stents versus atherosclerotic calcification of the coronary ves sels.
== END 2022-04-22 10:32 | disposition home or self-care (01) ==
PROVIDERS: PCP Family Medicine; Visit Provider Family Medicine
DX: R06.02 Shortness of breath (principal); I50.9 Heart failure, unspecified; I25.119 Atherosclerotic heart disease of native coronary artery with unspecified angina pectoris; J45.909 Unspecified asthma, uncomplicated
CPT/HCPCS: 71046; 78580; A9540

== ENCOUNTER 2022-05-12 08:56 | Outpatient (CLI) | payer MEDICARE, SELFPAY ==
[2022-05-12 10:03] LABS: Basophils Absolute Auto 0.1 K/mm3 (0.0-0.1); Basophils Percent Auto 0.8 % (0.2-1.2); Eosinophils Absolute Auto 0.3 K/mm3 (0-0.3); Eosinophils Percent Auto 4.7 % (0-4.4); Hematocrit 43.1 % (37.0-47.0); Hemoglobin 14.1 g/dL (12.0-15.0); Immature Granulocyte Absolute 0.02 K/mm3 (0.00-0.031); Immature Granulocyte Percent A 0.3 % (0-0.5); Lymphocytes Absolute Auto 1.49 K/mm3 (0.9-3.2); Lymphocytes Percent Auto 24.3 % (18.3-44.2); Mean Corpuscular HGB Conc 32.7 g/dl (32-36); Mean Corpuscular Hemoglobin 31.3 pg (26-34); Mean Corpuscular Volume 95.8 fl (80-100); Mean Platelet Volume 11.1 fl (7.4-10.4); Monocytes Absolute Auto 0.4 K/mm3 (0.1-0.6); Neutrophils Absolute Auto 3.9 K/mm3 (1.3-6.7); Neutrophils Percent Auto 62.9 % (45.5-73.1); Platelet Count Result 224 k/mm3 (150-375); Red Cell Distribution Width 14.2 % (11.5-14.5); White Blood Count 6.1 K/mm3 (4.5-10.0)
[2022-05-12 10:05] LABS: Prothrombin Time 12.3 Seconds (11.1-14.7)
[2022-05-12 10:09] LABS: Anion Gap 4 mmol/L (8-16); Blood Urea Nitrogen 13 mg/dL (7-17); Calcium 9.1 mg/dL (8.4-10.2); Carbon Dioxide 28 mmol/L (22-30); Chloride 104 mmol/L (98-107); Estimated Glomerular Filt Rate > 60; Glucose 94 mg/dL (65-110); Potassium 3.6 mmol/L (3.4-5.0); Sodium 136 mmol/L (137-145)
== END 2022-05-12 08:57 | disposition home or self-care (01) ==
PROVIDERS: PCP Family Medicine
DX: R79.1 Abnormal coagulation profile (principal); Z01.812 Encounter for preprocedural laboratory examination
CPT/HCPCS: 36415; 80048; 85025; 85610

== ENCOUNTER 2022-09-14 11:14 | Outpatient (CLI) | payer MEDICARE, SELFPAY ==
[2022-09-14 12:50] LABS: Anion Gap 7 mmol/L (8-16); Blood Urea Nitrogen 14 mg/dL (7-17); Calcium 9.3 mg/dL (8.4-10.2); Carbon Dioxide 25 mmol/L (22-30); Chloride 105 mmol/L (98-107); Estimated Glomerular Filt Rate > 60; Glucose 104 mg/dL (65-110); Potassium 3.6 mmol/L (3.4-5.0); Sodium 137 mmol/L (137-145)
[2022-09-14 12:52] LABS: NT Pro B Type Natriuretic Pept 45 pg/mL (19.9-100)
== END 2022-09-14 11:15 | disposition home or self-care (01) ==
PROVIDERS: PCP Family Medicine; Visit Provider Nurse Practitioner Family
DX: I50.9 Heart failure, unspecified (principal)
CPT/HCPCS: 36415; 80048; 83880

== ENCOUNTER 2022-09-17 08:38 | Outpatient (CLI) | payer MEDICARE, SELFPAY ==
--- NOTE | ~2022-09-17 | XR_ITS ---
Clinical Indication: Shortness of breath An lateral views of the chest: Comparison: 04/22/2022 Findings: The lungs are clear, without evidence of focal consolidation or pleural effusion. Cardiome diastinal silhouette is unchanged, with presumed coronary stents versus atherosclerotic calcification . Bones and soft tissues are unremarkable. Impression: Clear lungs. Reviewed, dictated and finalized at location . Impression: Clear lungs.
== END 2022-09-17 08:39 | disposition home or self-care (01) ==
PROVIDERS: PCP Family Medicine; Visit Provider Nurse Practitioner Family
DX: R06.02 Shortness of breath (principal)
CPT/HCPCS: 71046

== ENCOUNTER 2022-10-28 11:00 | Outpatient (RCR) | payer SELFPAY ==
[2022-07-10 10:57] VITALS: BP 132/76; PULSE 82; RESP 16; O2SAT 96
== END 2022-11-11 23:59 | disposition home or self-care (01) ==
LOC: ANHCPREHAB 11:00
PROVIDERS: PCP Family Medicine; Visit Provider Family Medicine
DX: I50.89 Other heart failure (principal)
CPT/HCPCS: 99199

== ENCOUNTER 2022-10-29 09:53 | Emergency (ER) | payer MEDICARE, SELFPAY ==
[2022-10-29] VITALS (14 sets, daily range): BP systolic 107–154; BP diastolic 73–96; PULSE 67–83; RESP 15–26; TEMP 36.8; O2SAT 93–98
--- NOTE | ~2022-10-29 | XR_ITS ---
EXAMINATION: XR chest 1V portable DATE: 10/29/2022 10:15 INDICATION: Shortness of breath. Chest pain. TECHNIQUE: A single frontal view of the chest was obtained. COMPARISON: Chest 2 views 09/17/2022 FINDINGS: There is no pneumonia, pleural effusion, or pneumothorax. Cardiomegaly is noted. IMPRESSION: 1. Cardiomegaly. Reviewed, dictated and finalized at location A. IMPRESSION: 1. Cardiomegaly.
--- NOTE | 2022-10-29 09:56 | ECG_ITS ---
Measurements Intervals [address] Rate: 79 P: 12 OK: 149 QRS: -27 QRSD: 85 T: 54 QT: 381 QTc: 438 Interpretive Statements SINUS RHYTHM BORDERLINE LEFT AXIS DEVIATION [QRS AXIS < -20] LOW QRS VOLTAGE IN PRECORDIAL LEADS [QRS DEFLECTION < 1.0 mV IN CHEST LEADS] NONSPECIFIC T-WAVE ABNORMALITY ABNORMAL ECG COMPARED TO ECG 03/18/2022 10:47:16 NO SIGNIFICANT CHANGE Electronically Signed On 10-29-2022 13:36:09 CDT by Faustino Rios M.D.
--- NOTE | 2022-10-29 10:08 | ED.CHESTPAIN ---
HPI - Chest Pain General Chief Complaint: Chest Pain Stated Complaint: chest pain Time Seen by Provider: 10/29/22 09:55 Source: patient Mode of arrival: ambulatory Limitations: no limitations History of Present Illness HPI narrative: this is a 71-year-old female that presents with some chest pain started about half an hour ago after she made her bed this morning rated 10 out 10 does have a history of coronary artery disease and CHF and history of asthma. Patient has nitroglycerin but did not think about taking it prior to arrival to the emergency department. Patient states that her pain level currently is a a 4/10, with no smoking history there is no diaphoresis no nausea or vomiting no radiation of her pain patient with history of asthma states that she is mildly short of breath and describes having body aches. Patient also states that she feels feverish with body aches with no dysuria, no flank pain no abdominal pain no dysuria, patient having a slight nonproductive cough with no nasal discharge no fever chills. MD complaint: chest pain Pertinent past history: coronary artery disease and asthma Onset (ago): hour(s) Timing of current episode: constant Onset: during rest Pain location: substernal Pain radiation: none Severity: mild Pain scale (0-10): 5 Quality: tightness Exacerbating factors: exertion Treatment prior to arrival: none Related Data Home Medications Medication Instructions Recorded Confirmed carvedilol 6.25 mg tablet 6.25 mg PO Q12H 08/13/20 10/29/22 epinephrine 0.3 mg/0.3 mL 0.3 mg IM ONCE PRN Allergic 08/13/20 10/29/22 injection, auto-injector Reaction lisinopril 2.5 mg tablet 2.5 mg PO DAILY 08/13/20 10/29/22 nitroglycerin 0.4 mg sublingual 0.4 mg sublingual Q5M PRN Chest 08/13/20 10/29/22 tablet Pain ranolazine 500 mg tablet,extended 500 mg PO Q12H 08/13/20 10/29/22 release,12 hr calcium carbonate 600 mg-vitamin 1 tablet PO DAILY 12/26/20 10/29/22 D3 10 mcg (400 unit) tablet (Calcium with Vitamin D) cyanocobalamin (vitamin B-12) 1,000 mcg PO DAILY 12/26/20 10/29/22 1,000 mcg capsule clopidogrel 75 mg tablet (Plavix) 75 mg PO .QD 04/03/22 10/29/22 isosorbide mononitrate 30 mg 30 mg PO .QD 04/03/22 10/29/22 tablet,extended release 24 hr atorvastatin 40 mg tablet 20 mg PO QHS 07/10/22 10/29/22 cilostazol 100 mg tablet 100 mg PO BID 07/23/22 10/29/22 Allergies Allergy/AdvReac Type Severity Reaction Status Date / Time Iodinated Contrast Media Allergy Severe cardiac Verified 10/26/22 13:28 arrest tizanidine Allergy Mild Unknown Verified 10/26/22 13:28 aspirin Allergy Unknown UNKNOWN Verified 10/26/22 13:28 caffeine Allergy Unknown UNKNOWN Verified 10/26/22 13:28 cephalexin Allergy Unknown UNKNOWN Verified 10/26/22 13:28 chlorzoxazone Allergy Unknown unknown Verified 10/26/22 13:28 codeine Allergy Unknown UNKNOWN Verified 10/26/22 13:28 doxycycline Allergy Unknown UNKNOWN Verified 10/26/22 13:28 guaifenesin Allergy Unknown UNKNOWN Verified 10/26/22 13:28 naratriptan Allergy Unknown UNKNOWN Verified 10/26/22 13:28 orphenadrine Allergy Unknown UNKNOWN Verified 10/26/22 13:28 Penicillins Allergy Unknown UNKNOWN Verified 10/26/22 13:28 prochlorperazine Allergy Unknown UNKNOWN Verified 10/26/22 13:28 propoxyphene Allergy Unknown UNKNOWN Verified 10/26/22 13:28 Sulfa (Sulfonamide Allergy Unknown unknown Verified 10/26/22 13:28 Antibiotics) tetracycline Allergy Unknown UNKNOWN Verified 10/26/22 13:28 Influenza Virus Vaccines Allergy Unknown Verified 10/26/22 13:28 iodine Allergy Anaphylaxis Verified 10/26/22 13:28 melon Allergy Unknown Verified 10/26/22 13:28 pneumococcal vaccine Allergy Unknown Verified 10/26/22 13:28 strawberry Allergy Anaphylaxis Verified 10/26/22 13:28 Tetanus Vaccines and Toxoid Allergy Anaphylaxis Verified 10/26/22 13:28 promethazine [From Phenergan] AdvReac Intermediate Hives Verified 10/26/22 13:28 vaccine Allergy Unknown Uncoded 10/26/22 13:28 Review of Systems
[2022-10-29] MEDS: NITROGLYCERIN SL 0.4 MG TABLET SUBLINGUAL (10:27)
[2022-10-29 10:29] LABS: Basophils Absolute Auto 0.05 K/mm3 (0.00-0.10); Basophils Percent Auto 0.8 % (0.0-1.0); Eosinophils Percent Auto 3.1 % (1.0-6.0); Hematocrit 39.2 % (35.0-42.0); Hemoglobin 12.9 g/dL (11.7-13.8); Immature Granulocyte Absolute 0.03 K/mm3 (0.00-0.00); Immature Granulocyte Percent A 0.5 % (0.0-0.0); Lymphocytes Absolute Auto 1.38 K/mm3 (1.10-4.50); Lymphocytes Percent Auto 21.2 % (18.0-42.0); Mean Corpuscular HGB Conc 32.9 g/dL (32.0-36.0); Mean Corpuscular Hemoglobin 30.8 pg (27.0-31.0); Mean Corpuscular Volume 93.6 fL (78.0-102.0); Mean Platelet Volume 10.8 fl (9.2-11.8); Monocytes Absolute Auto 0.44 K/mm3 (0.10-0.90); Monocytes Percent Auto 6.8 % (2.0-11.0); Neutrophils Absolute Auto 4.4 K/mm3 (1.7-7.2); Neutrophils Percent Auto 67.6 % (50.0-70.0); Platelet Count Result 214 K/mm3 (150-420); Red Blood Count 4.19 M/mm3 (4.20-5.40); Red Cell Distribution Width 13.9 % (11.6-14.4); White Blood Count 6.5 K/mm3 (4.8-10.8)
[2022-10-29 10:44] LABS: D Dimer 0.21 mg/L (0.19-0.50); Partial Thromboplastin Time 24.8 SEC (23.90-30.70); Prothrombin Time 10.9 Seconds (9.50-12.10)
[2022-10-29 10:51] LABS: Bilirubin Urine Negative (Negative); Blood Urine 2+ (Negative); Color Urine Light Yellow (Yellow); Glucose Urine UA Negative (Negative); Ketones Urine Negative (Negative); Leukocyte Esterase Ur 3+ LEU/UL (Negative); Nitrate Urine Positive (Negative); Protein Urine Negative (Negative); Urobilinogen Urine 0.2 mg/dL (0.2-1.0); pH Urine 6.5 (5.0-8.0)
[2022-10-29 10:53] LABS: Alanine Aminotransferase 19 U/L (14-59); Albumin Level 3.4 g/dL (3.4-5.0); Anion Gap 9 mmol/L (8-16); Aspartate Amino Transferase 14 U/L (15-37); Blood Urea Nitrogen 11 mg/dL (7-18); Calcium 8.7 mg/dL (8.5-10.1); Carbon Dioxide 26 mmol/L (21-32); Chloride 107 mmol/L (98-108); Estimated CRCL calculation 42 ml/min; Estimated Glomerular Filt Rate > 60; Glucose 92 mg/dL (70-99); Lipase 40 U/L (16-77); NT Pro B Type Natriuretic Pept 218 pg/mL (0-125); Osmolality Calculated 293 mOsm/kg (285-295); Potassium 3.5 mmol/L (3.5-5.1); Sodium 142 mmol/L (136-145); Total Protein 5.9 g/dL (6.4-8.2); Troponin I 12.6 ng/L (0.00-60.4)
[2022-10-29 10:58] LABS: Add Urine Microscopic? YES; Appearance Urine Cloudy (Clear); Bacteria Urine 1+ /hpf; RBC Urine 0-2 /hpf (0-2); Squamous Epithelial Cell Urine Rare /hpf (Few); WBC Urine 21-30 /hpf (0-3)
[2022-10-29 11:04] LABS: Alkaline Phosphatase 64 U/L (46-116)
[2022-10-29 11:05] LABS: Influenza A QL RT-PCR Negative (Negative); Influenza B QL RT-PCR Negative (Negative); RSV RNA, RT-PCR Negative (Negative); SARS-CoV-2 RNA PCR Negative (Negative)
[2022-10-29] MEDS: CIPROFLOXACIN 500 MG TAB PO (11:15)
--- NOTE | 2022-10-31 12:31 | PC.NURSE ---
Final urine culture report: Patient discharged on Cipro 500mg take 1 tablet every 12 hours for 7 days. Culture susceptible to cipro, no change in medication or further treatment needed per Dr. Núñez.
--- NOTE | 2022-11-04 13:21 | PC.NURSE ---
reviewed blood culture report, no growth noted
== END 2022-10-29 11:32 | disposition home or self-care (01) ==
PROVIDERS: Emergency Provider Emergency Medicine
DX: R07.89 Other chest pain (principal); N39.0 Urinary tract infection, site not specified; R06.02 Shortness of breath; I25.10 Atherosclerotic heart disease of native coronary artery without angina pectoris; I11.0 Hypertensive heart disease with heart failure; I50.9 Heart failure, unspecified; J45.909 Unspecified asthma, uncomplicated; E78.5 Hyperlipidemia, unspecified; M81.0 Age-related osteoporosis without current pathological fracture; E53.8 Deficiency of other specified B group vitamins; Z79.02 Long term (current) use of antithrombotics/antiplatelets; Z95.5 Presence of coronary angioplasty implant and graft; Z79.51 Long term (current) use of inhaled steroids; Z20.822 Contact with and (suspected) exposure to COVID-19
CPT/HCPCS: 36415; 71045; 80053; 81001; 83690; 83880; 84484; 85025; 85380; 85610; 85730; 87040; 87077; 87086; 87088; 87186; 87637; 93005; 99284; A9270

== ENCOUNTER 2023-01-27 11:31 | Outpatient (CLI) | payer MEDICARE, SELFPAY ==
--- NOTE | ~2023-01-27 | XR_ITS ---
EXAM: XR lumbar spine 2-3V DATE: 01/27/2023 11:50 HISTORY: M54.50 - Low back pain, TWISTING INJ, HX LAMI . COMPARISON: None available. FINDINGS: Severe osteopenia. Atherosclerotic calcifications. 5 nonrib-bearing lumbar-type vertebral b odies. Pedicles intact. Normal vertebral body alignment. Vertebral body heights preserved. Multilevel moderate degenerative disc disease. Multilevel moderate-severe mid and lower lumbar spine facet arth ropathy. No fracture or dislocation. IMPRESSION: No acute fracture or traumatic malalignment detected in the lumbar spine. If pain persist s, or suspicion of injury is high consider CT or MRI of lumbar spine for further evaluation. Reviewed, dictated and finalized at location K. LINE SERVICE ATTENDANT IMPRESSION: No acute fracture or traumatic malalignment detected in the lumbar spine. If pain persists, or suspicion of injury is high consider CT or MRI of l umbar spine for further evaluation.
== END 2023-01-27 11:32 | disposition home or self-care (01) ==
PROVIDERS: PCP Family Medicine; Visit Provider Physician Assistant Medical
DX: M54.50 Low back pain, unspecified (principal)
CPT/HCPCS: 72100

== ENCOUNTER 2023-05-19 07:49 | Outpatient (CLI) | payer MEDICARE, SELFPAY ==
--- NOTE | 2023-05-19 17:48 | WPDSIXMINUTE ---
Six Minute Walk Procedure Procedure Performed Pulmonary Stress Test (6 min walk) Six Minute Walk Six Minute Walk: This is a 6 minute walk test. The test was performed and interpreted in accordance with the 2014 ERS/ATS task force guidelines. Findings: The patient's resting room air oxygen saturation measured by pulse oximetry was 97% and heart rate was 79 bpm. Patient ambulated for 365 meters and oxygen saturation remained 96 to 98%. Heart rate at the end of the study was 89 bpm. The patient did not qualify for supplemental oxygen at rest or with ambulation. There are no prior studies for comparison.
== END 2023-05-19 07:50 | disposition home or self-care (01) ==
PROVIDERS: PCP Family Medicine; Visit Provider Family Medicine
DX: I25.10 Atherosclerotic heart disease of native coronary artery without angina pectoris (principal); I50.9 Heart failure, unspecified; R09.02 Hypoxemia; R06.02 Shortness of breath; R07.9 Chest pain, unspecified; Z95.5 Presence of coronary angioplasty implant and graft
CPT/HCPCS: 94618

== ENCOUNTER 2023-07-27 15:30 | Outpatient (CLI) | payer MEDICARE, SELFPAY ==
--- NOTE | ~2023-07-27 | CT_ITS ---
EXAMINATION: CT brain wo con DATE: 07/27/2023 16:37 INDICATION: S00.93XA - Contusion of unspecified part of head, initial... . TECHNIQUE: Computed tomography (CT) of the head was performed without intravenous contrast. The mA wa s adjusted according to patient size. Iterative reconstruction technique was employed. The dose-lengt h product was 605.33 mGy-cm. COMPARISON: 03/18/2022. FINDINGS: No acute intracranial hemorrhage or extra-axial fluid collection. No hydrocephalus, mass, or herniation. No acute ischemic infarct. Unremarkable dural venous sinus attenuation. No acute osseous abnormality. Small left inferior maxillary retention cysts/polyps, the remaining aerated spaces are clear. Mild atrophy and chronic white matter change. Atherosclerotic intracranial calcification. Bilateral l ens replacements. 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 Empty sella. IMPRESSION: No acute intracranial process. Reviewed, dictated and finalized at location K.
== END 2023-07-27 15:31 | disposition home or self-care (01) ==
LOC: ANHIMG 15:31
PROVIDERS: PCP Family Medicine; Visit Provider Family Medicine
DX: S00.93XA Contusion of unspecified part of head, initial encounter (principal); X58.XXXA Exposure to other specified factors, initial encounter; R51.9 Headache, unspecified
CPT/HCPCS: 70450

== ENCOUNTER 2023-08-12 10:35 | Outpatient (CLI) | payer MEDICARE, SELFPAY ==
[2023-08-12 11:09] LABS: Hematocrit 42.1 % (37.0-47.0); Hemoglobin 13.9 g/dL (12.0-15.0); Mean Corpuscular Volume 96.8 fl (80-100); Mean Platelet Volume 10.6 fl (7.4-10.4); Platelet Count Result 229 k/mm3 (150-375); Red Blood Count 4.35 M/mm3 (4.2-5.4); Red Cell Distribution Width 13.4 % (11.5-14.5); White Blood Count 5.3 K/mm3 (4.5-10.0)
[2023-08-12 11:21] LABS: Anion Gap 4 mmol/L (4-12); Blood Urea Nitrogen 12 mg/dL (7-17); Calcium 9.2 mg/dL (8.4-10.2); Carbon Dioxide 28 mmol/L (22-30); Chloride 105 mmol/L (98-107); Estimated Glomerular Filt Rate > 60; Glucose 95 mg/dL (65-110); Potassium 3.8 mmol/L (3.4-5.0); Sodium 137 mmol/L (137-145)
[2023-08-12 12:13] LABS: Vitamin B12 > 1000.0 pg/mL (239-931)
== END 2023-08-12 10:36 | disposition home or self-care (01) ==
LOC: ANHLAB 10:40
PROVIDERS: PCP Family Medicine; Visit Provider Family Medicine
DX: Z11.59 Encounter for screening for other viral diseases (principal); E53.8 Deficiency of other specified B group vitamins; I10 Essential (primary) hypertension; Z91.89 Other specified personal risk factors, not elsewhere classified
CPT/HCPCS: 36415; 80048; 82607; 85027

== ENCOUNTER 2023-08-16 13:43 | Outpatient (CLI) | payer MEDICARE, SELFPAY ==
--- NOTE | 2023-08-17 12:48 | P.PCNPFT_ITS ---
PFT Procedure Performed PFT Procedure Performed Spirometry with Pre/Post Bronchodilator Plethysmography (Lung Vol) Diffusing Cap (DLCO) Flow Vol Loop PFT Interpretation Lung volumes were measured with the body plethysmography method. Lung volumes are unremarkable. Spirometry showed diminished expiratory flow rates and a normal FEV1 to FVC ratio 71%. Following administration of a bronchodilator there was no significant increase in the expiratory flow rates. Lung diffusion capacity is severely reduced at 42% predicted. The diminished lung diffusion capacity coupled with a low alveolar volume and a normal DLCO/VA ratio may indicate loss of alveolar capillary structure as seen in emphysema or intersti tial lung disease. Clinical correlation advised. The flow volume loop is unremarkable. Impression: Non specific pattern. Severely reduced lung diffusion capacity.
== END 2023-08-16 13:44 | disposition home or self-care (01) ==
LOC: ANHPFT 13:44
PROVIDERS: PCP Family Medicine; Visit Provider Family Medicine
DX: J45.20 Mild intermittent asthma, uncomplicated (principal); R94.2 Abnormal results of pulmonary function studies
CPT/HCPCS: 94060; 94726; 94729

== ENCOUNTER 2023-08-26 09:22 | Outpatient (CLI) | payer MEDICARE, SELFPAY ==
--- NOTE | 2023-08-26 | EST_ITS ---
Patient Info Name: Aida Nguyen Age: 72 years : 1950 Gender: Female Ht: 59 in Wt: 110 lbs BSA: 1.45 m2 HR: 53 bpm BP: 142 / 93 mmHg Heart Rhythm: Sinus Rhythm Exam Date: 08/26/2023 10:46 AM Exam Location: Echo Lab Patient Status: Outpatient Admit Date: 08/26/2023 Staff Ordering Physician: EILEEN, RICHARD Attending Provider: EILEEN, RICHARD Exercise Technologist: Dinah Cruz, GORDY Nurse: Mercy Licea APN Exam Type: CA stress oneyda w NM Study Info Indications R07.9 - Chest pain, unspecified A regadenoson stress test was performed. Summary 1. Occasional PVCs. 2. No abnormal ST/T wave changes diagnostic of ischemia with Lexiscan. 3. Please correlate with nuclear medicine images, reported separately. 4. Stress test supervised by Mercy Licea NP. Stress test interpreted by Marilyn Pickard MD. Protocol: Lexiscan Stress ECG Details Stage: REST Duration (min): 5 min : 12 sec HR (bpm): 77 SBP (mmHg): 137 DBP (mmHg): 109 Stage: REST Duration (min): 11 min : 29 sec HR (bpm): 75 SBP (mmHg): 137 DBP (mmHg): 109 Stage: STAGE 1 Duration (min): 1 min : 0 sec HR (bpm): 82 SBP (mmHg): 129 DBP (mmHg): 97 Stage: RECOVERY Duration (min): 1 min : 0 sec HR (bpm): 98 SBP (mmHg): 129 DBP (mmHg): 97 Stage: RECOVERY Duration (min): 2 min : 0 sec HR (bpm): 96 SBP (mmHg): 129 DBP (mmHg): 97 Stage: RECOVERY Duration (min): 3 min : 0 sec HR (bpm): 95 SBP (mmHg): 113 DBP (mmHg): 68 Stage: RECOVERY Duration (min): 4 min : 0 sec HR (bpm): 91 SBP (mmHg): 113 DBP (mmHg): 68 Stage: RECOVERY Duration (min): 4 min : 42 sec HR (bpm): 87 SBP (mmHg): 129 DBP (mmHg): 77 Rest HR: 75 bpm Peak HR: 99 bpm Rest Sys BP: 137 mmHg Peak Sys BP: 129 mmHg Max Pred HR: 147 bpm % Max Pred HR: 67 % Target HR: 125 bpm Max RPP: 12,771 bpm*mmHg Total Time: 1 min : 0 sec Rest Lozoya BP: 109 mmHg Peak Lozoya BP: 97 mmHg Total Dose: 0.4 mg Resting ECG Sinus rhythm. Incomplete right bundle branch block. Nonspecific ST and T wave abnormality. Stress ECG Sinus rhythm. No abnormal ST/T wave changes diagnostic of ischemia with Lexiscan. Arrhythmias Occasional PVCs. Report Signatures
--- NOTE | ~2023-08-26 | NM_ITS ---
EXAMINATION: NM oneyda stress w perfusion DATE: 08/26/2023 12:24 CDT INDICATION: Coronary artery disease TECHNIQUE: Rest images were obtained following intravenous administration of 9.2 mCi Tc99m tetrofosmi n (Myoview). The patient was infused intravenously with Lexiscan (regadenoson). Then, 30 mCi Tc99m te trofosmin (Myoview) was administered intravenously, and stress images were obtained. Data was reconst ructed into short axis and horizontal and vertical long axis SPECT images. Gated SPECT images were al so obtained. COMPARISON: 02/17/2022. FINDINGS: There is no definite reversible or fixed perfusion abnormality to suggest ischemia or infar ction. There is no segmental wall motion abnormality. Left ventricular ejection fraction measures 8 3%. IMPRESSION: 1. No definite ischemia or infarct. 2. Normal left ventricular ejection fraction measuring 83%. Reviewed, dictated and finalized at location B.
== END 2023-08-26 09:23 | disposition home or self-care (01) ==
PROVIDERS: PCP Family Medicine
DX: I25.119 Atherosclerotic heart disease of native coronary artery with unspecified angina pectoris (principal); I51.89 Other ill-defined heart diseases; R06.02 Shortness of breath
CPT/HCPCS: 78452; 93017; A9502; J2785

== ENCOUNTER 2023-09-06 09:42 | Outpatient (CLI) | payer MEDICARE, SELFPAY ==
[2023-09-06 10:38] LABS: Basophils Absolute Auto 0.1 K/mm3 (0.0-0.1); Eosinophils Absolute Auto 0.6 K/mm3 (0-0.3); Eosinophils Percent Auto 8.5 % (0-4.4); Hematocrit 41.7 % (37.0-47.0); Hemoglobin 13.5 g/dL (12.0-15.0); Immature Granulocyte Absolute 0.02 K/mm3 (0.00-0.031); Immature Granulocyte Percent A 0.3 % (0-0.5); Lymphocytes Absolute Auto 1.55 K/mm3 (0.9-3.2); Lymphocytes Percent Auto 23.2 % (18.3-44.2); Mean Corpuscular HGB Conc 32.4 g/dl (32-36); Mean Corpuscular Hemoglobin 31.3 pg (26-34); Mean Corpuscular Volume 96.8 fl (80-100); Mean Platelet Volume 11.3 fl (7.4-10.4); Monocytes Absolute Auto 0.6 K/mm3 (0.1-0.6); Neutrophils Absolute Auto 3.9 K/mm3 (1.3-6.7); Platelet Count Result 232 k/mm3 (150-375); Red Blood Count 4.31 M/mm3 (4.2-5.4); Red Cell Distribution Width 13.4 % (11.5-14.5); White Blood Count 6.7 K/mm3 (4.5-10.0)
[2023-09-06 10:45] LABS: Anion Gap 6 mmol/L (4-12); Blood Urea Nitrogen 16 mg/dL (7-17); Calcium 9.3 mg/dL (8.4-10.2); Carbon Dioxide 23 mmol/L (22-30); Chloride 107 mmol/L (98-107); Estimated Glomerular Filt Rate > 60; Glucose 94 mg/dL (65-110); Potassium 4.1 mmol/L (3.4-5.0); Sodium 136 mmol/L (137-145)
[2023-09-06 10:49] LABS: INR 0.9; Prothrombin Time 12.5 Seconds (11.1-14.7)
== END 2023-09-06 09:43 | disposition home or self-care (01) ==
PROVIDERS: PCP Family Medicine
DX: I70.0 Atherosclerosis of aorta (principal); I10 Essential (primary) hypertension; I25.119 Atherosclerotic heart disease of native coronary artery with unspecified angina pectoris; Z01.818 Encounter for other preprocedural examination; Z95.5 Presence of coronary angioplasty implant and graft
CPT/HCPCS: 36415; 80048; 85025; 85610

== ENCOUNTER 2023-09-29 09:57 | Outpatient (CLI) | payer MEDICARE, SELFPAY ==
--- NOTE | ~2023-09-29 | MM_ITS ---
EXAMINATION: MM screening alva BI w juan m HISTORY: Screening TECHNIQUE: Craniocaudal and mediolateral oblique 3-D tomosynthesis images were obtained and synthetic 2-D images were generated. CAD analysis was submitted and interpreted. COMPARISON: No prior mammogram is available for comparison at this institution. BREAST PARENCHYMAL COMPOSITION: Not dense: There are scattered areas of fibroglandular density. FINDINGS: There is no evidence of suspicious mass, calcification, or architectural distortion to sugg est malignancy in either breast. There has been no suspicious interval change. IMPRESSION: 1. No mammographic evidence of malignancy. 2. Recommend routine screening mammography in one year. BI-RADS Category 1: Negative Reviewed, dictated and finalized at location B.
== END 2023-09-29 09:58 | disposition home or self-care (01) ==
LOC: ANHIMG 09:59
PROVIDERS: PCP Family Medicine; Visit Provider Obstetrics & Gynecology
DX: Z12.31 Encounter for screening mammogram for malignant neoplasm of breast (principal)
CPT/HCPCS: 77063; 77067

== ENCOUNTER 2023-11-10 01:55 | Day surgery (SDC) | payer MEDICARE, SELFPAY ==
[2023-11-04 15:37] VITALS: BMI 21.4
--- NOTE | 2023-11-04 15:57 | PC.NURSE ---
Spoke with PATIENT regarding medication PLAVIX. Pt. verbalizes understanding that the last dose of PLAVIX is to be taken on 11/10/2023 and the Endoscopist will instruct them when to restart after the procedure.
[2023-11-10 10:28] VITALS: BP 158/70; PULSE 68; RESP 16; TEMP 36.2; O2SAT 97; BMI 21.9
[2023-11-10] MEDS: LACTATED RINGERS 1,000 ML 150 ML IV CONT (10:48)
--- NOTE | 2023-11-10 11:31 | WPDANESEPPF ---
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 Patient Data Age: 72 Gender: F Height: 1.52 m Weight: 50.9 kg Last Vital Signs Temp 97.1 F L 11/10/23 10:28 Pulse 68 11/10/23 10:28 Resp 16 11/10/23 10:28 BP 158/70 H 11/10/23 10:28 Pulse Ox 97 11/10/23 10:28 O2 Del Method Room Air 11/10/23 10:28 Allergies Allergy/AdvReac Type Severity Reaction Status Date / Time Influenza Virus Vaccines Allergy Severe Anaphylaxis Verified 11/10/23 10:35 Iodinated Contrast Media Allergy Severe cardiac Verified 11/10/23 10:35 arrest iodine Allergy Severe Anaphylaxis Verified 11/10/23 10:35 melon Allergy Severe Wheezing, Verified 11/10/23 10:35 shortness of breath, rash pneumococcal vaccine Allergy Severe Anaphylaxis Verified 11/10/23 10:35 strawberry Allergy Severe Anaphylaxis Verified 11/10/23 10:35 Tetanus Vaccines and Toxoid Allergy Severe Rash Verified 11/10/23 10:35 adhesive Allergy Intermediate Blister Verified 11/10/23 10:35 amlodipine Allergy Intermediate Rash Verified 11/10/23 10:35 codeine Allergy Intermediate Rash Verified 11/10/23 10:35 cyclobenzaprine Allergy Intermediate Rash Verified 11/10/23 10:35 oseltamivir Allergy Intermediate Rash Verified 11/10/23 10:35 Sulfa (Sulfonamide Allergy Intermediate Rash Verified 11/10/23 10:35 Antibiotics) tolterodine Allergy Intermediate Rash Verified 11/10/23 10:35 tizanidine Allergy Mild Unknown Verified 11/10/23 10:35 aspirin Allergy Unknown UNKNOWN Verified 11/10/23 10:35 cephalexin Allergy Unknown Rash Verified 11/10/23 10:35 chlorzoxazone Allergy Unknown unknown Verified 11/10/23 10:35 doxycycline Allergy Unknown UNKNOWN Verified 11/10/23 10:35 guaifenesin Allergy Unknown UNKNOWN Verified 11/10/23 10:35 naratriptan Allergy Unknown Rash Verified 11/10/23 10:35 orphenadrine Allergy Unknown UNKNOWN Verified 11/10/23 10:35 Penicillins Allergy Unknown UNKNOWN Verified 11/10/23 10:35 prochlorperazine Allergy Unknown UNKNOWN Verified 11/10/23 10:35 propoxyphene Allergy Unknown Rash Verified 11/10/23 10:35 tetracycline Allergy Unknown UNKNOWN Verified 11/10/23 10:35 promethazine [From Phenergan] AdvReac Intermediate Hives Verified 11/10/23 10:35 Home Medications Medication Instructions Recorded Confirmed Type carvedilol 6.25 mg tablet 6.25 mg PO Q12H 08/13/20 11/10/23 History lisinopril 2.5 mg tablet 2.5 mg PO DAILY 08/13/20 11/10/23 History nitroglycerin 0.4 mg sublingual 0.4 mg sublingual Q5M PRN Chest 08/13/20 11/10/23 History tablet Pain ranolazine 500 mg tablet,extended 500 mg PO Q12H 08/13/20 11/10/23 History release,12 hr clopidogrel 75 mg tablet (Plavix) 75 mg PO .QD 04/03/22 11/10/23 History atorvastatin 40 mg tablet 40 mg PO QHS 07/10/22 11/10/23 History cilostazol 100 mg tablet 100 mg PO BID 07/23/22 11/10/23 History albuterol sulfate 90 mcg/actuation 1 inh inhalation Q4H PRN shortness 08/25/22 11/10/23 Rx aerosol inhaler of breath or wheezing #8.5 grams epinephrine 0.3 mg/0.3 mL 0.3 mg (0.3 mL) IM ONCE #2 ea 11/13/22 11/10/23 Rx injection, auto-injector (EpiPen 2-Terell) isosorbide mononitrate 30 mg 120 mg PO .QD 01/20/23 11/10/23 History tablet,extended release 24 hr hydrocodone 5 mg-acetaminophen 325 1 tablet PO Q6H PRN migraine 07/27/23 11/10/23 Rx mg tablet headache #30 tabs kmckzqfjuh-dxeuxaoimufcx-fpwqhzkq 1 tablet PO Q4H PRN Headache 11/03/23 11/10/23 History 50 mg-325 mg-40 mg tablet calcium carbonate 500 mg-vitamin 1 tablet PO DAILY 11/03/23 11/10/23 History D3 10 mcg (400 unit) tablet (Calcium 500 + D) cyanocobalamin (vitamin B-12) 1,000 mcg PO DAILY 11/03/23 11/10/23 History 1,000 mcg tablet diphenhydramine HCl 25 mg tablet 25 mg PO Q6H PRN Itching 11/03/2311/09
--- NOTE | 2023-11-10 11:52 | PM.HPGS ---
History of Present Illness History of Present Illness Consent: Risks, benefits, and alternatives have been discussed and questions answered. Patient agrees to proceed with procedure. 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 She had EGD August 2021 at which time she was noted to have Gaines's. She has been on Protonix 40 mg b.i.d. and doing well Review of Systems Review of Systems: All systems reviewed & are unremarkable except as noted in HPI and below PMFSH Past Medical History Medical History (Updated 09/27/23 @ 22:19 by Vitaly Manzanares MD) Allergies Asthma Bone pain Bronchitis Cervical spondylosis CHF (congestive heart failure) 2019 echo nl ef, mild lvh, pa 27 mmHg Coronary artery disease Decreased diffusion capacity of lung Encounter for hepatitis C virus screening test for high risk patient Headache History of uterine cancer HTN (hypertension) Hyperlipidemia Hypoxia Kidney disease Leg skin lesion, left Low vitamin B12 level Migraine Nausea & vomiting Numbness of extremity Osteoporosis Screen for colon cancer Traumatic hematoma of head Surgical History Surgical History (Updated 10/01/23 @ 10:39 by Vitaly Manzanares MD) History of back surgery History of heart artery stent History of hernia repair History of hysterectomy History of laminectomy History of laparoscopic appendectomy History of lumpectomy of right breast History of tonsillectomy and adenoidectomy S/P conization of cervix Family History Family History Father Pulmonary disease Heart attack High cholesterol Hypertension Mother Heart attack High cholesterol Heart disease Hypertension Sibling High cholesterol Hypertension Other Alcohol abuse Asthma Social History Social History Smoking status: Never smoker Second hand tobacco smoke exposure: No Alcohol intake: current Drinks per week: 3 Alcohol use details: COCKTAILS Substance use: never Substance use type: does not use Do You Feel Safe in your Home?: Yes Lack of Transportation: No Lack of Food: Never True Current Housing: I Have Housing Concerned About Future Housing: No Difficulty Paying Gas/Electric Bills: No Difficulty Paying for Meds: No Currently Unemployed: No Education: Bachelor's Degree Difficulty w/ Childcare or Family Care: No Living arrangements: alone Occupation/Education: retired 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 [employer] Gender identity (if verbalized by the patient): Female Spiritual care concerns: No Meds Home Medications and Allergies Home Medications Medication Instructions Recorded Confirmed Type carvedilol 6.25 mg tablet 6.25 mg PO Q12H 08/13/20 11/10/23 History lisinopril 2.5 mg tablet 2.5 mg PO DAILY 08/13/20 11/10/23 History nitroglycerin 0.4 mg sublingual 0.4 mg sublingual Q5M PRN Chest 08/13/20 11/10/23 History tablet Pain ranolazine 500 mg tablet,extended 500 mg PO Q12H 08/13/20 11/10/23 History release,12 hr clopidogrel 75 mg tablet (Plavix) 75 mg PO .QD 04/03/22 11/10/23 History atorvastatin 40 mg tablet 40 mg PO QHS 07/10/22 11/10/23 History cilostazol 100 mg tablet 100 mg PO BID 07/23/22 11/10/23 History albuterol sulfate 90 mcg/actuation 1 inh inhalation Q4H PRN shortness 08/25/22 11/10/23 Rx aerosol inhaler of breath or wheezing #8.5 grams epinephrine 0.3 mg/0.3 mL 0.3 mg (0.3 mL) IM ONCE #2 ea 11/13/22 11/10/23 Rx injection, auto-injector (EpiPen 2-Terell) isosorbide mononitrate 30 mg 120 mg PO .QD 01/20/23 11/10/23 History tablet,extended release 24 hr hydrocodone 5 mg-acetaminophen 325 1 tablet PO Q6H PRN migraine 07/27/23 11/10/23 Rx mg tablet headache #30 tabs potpajbhno-ydlgnsbwgwtaq-azecudsa 1 tablet PO Q4H PRN Headache 11/03/23 11/10/23 History
[2023-11-10] MEDS: BENZOCAINE (*SP) 60 ML SPRAY CAN (HURRICAINE) 1 SPRAY MUCOUS MEM (11:58)
[2023-11-10 12:09] VITALS: BP 121/57; PULSE 64; RESP 14; O2SAT 97
[2023-11-10 12:19] VITALS: BP 115/53; PULSE 65; RESP 13; O2SAT 97
[2023-11-10 12:29] VITALS: BP 127/71; PULSE 69; RESP 24; O2SAT 98
== END 2023-11-10 12:40 | disposition home or self-care (01) ==
PROVIDERS: PCP Family Medicine; Referring Provider Nurse Practitioner Family; Visit Provider Internal Medicine Gastroenterology
PROC: 0DJ08ZZ Inspection of Upper Intestinal Tract, Via Natural or Artificial Opening Endoscopic (ICD-10-PCS; CPT 43235; principal; 2023-11-10 11:30)
DX: K22.70 Barrett's esophagus without dysplasia (principal); K44.9 Diaphragmatic hernia without obstruction or gangrene; K21.9 Gastro-esophageal reflux disease without esophagitis; K29.50 Unspecified chronic gastritis without bleeding; K31.A14 Gastric intestinal metaplasia without dysplasia, involving the cardia; I25.10 Atherosclerotic heart disease of native coronary artery without angina pectoris; E78.5 Hyperlipidemia, unspecified; J45.909 Unspecified asthma, uncomplicated; E53.8 Deficiency of other specified B group vitamins; I11.0 Hypertensive heart disease with heart failure; I50.9 Heart failure, unspecified; M81.0 Age-related osteoporosis without current pathological fracture; N28.9 Disorder of kidney and ureter, unspecified; Z85.42 Personal history of malignant neoplasm of other parts of uterus; Z79.02 Long term (current) use of antithrombotics/antiplatelets; Z79.51 Long term (current) use of inhaled steroids; Z79.891 Long term (current) use of opiate analgesic; Z95.5 Presence of coronary angioplasty implant and graft
CPT/HCPCS: 43239; 88305; J2704; J7120

== ENCOUNTER 2023-11-24 07:47 | Outpatient (CLI) | payer MEDICARE, SELFPAY ==
--- NOTE | ~2023-11-24 | DEXA_ITS ---
Bone Density Report Name: JERMAINE GALO Age: 72 Sex: Female Ethnicity: White Date of : 1950 Indication: postmenopausal osteoporosis; height loss; cancer; anorexia or bulimia; asthma or emphysema; hysterectomy; Referring Provider: EDER MEADE Study: Bone densitometry was performed. Exam Date: November 24, 2023 Accession number: [id number] Bone Density: Region BMD T-score Z-score Classification AP Spine(L1-L4) 0.701 -3.1 -0.8 Osteoporosis Femoral Neck (Left) 0.462 -3.5 -1.5 Osteoporosis Total Hip (Left) 0.610 -2.7 -1.0 Osteoporosis Femoral Neck (Right) 0.444 -3.7 -1.6 Osteoporosis Total Hip (Right) 0.604 -2.8 -1.1 Osteoporosis Total Hip Mean 0.607 -2.8 -1.1 Osteoporosis World Health Organization criteria for BMD impression classify patients as: Normal (T-score at or above -1.0), Osteopenia (T-score between -1.0 and -2.5), or Osteoporosis (T-score at or below -2.5). 10-year Fracture Risk: FRAX not reported because: Some T-score for Spine Total or Hip Total or Femoral Neck at or below -2.5 Previous Exams: Region Exam Age BMD T-score BMD Change BMD Change Date g/cm2 vs Baseline vs Previous Total Hip(Left) 11/24/2023 72 0.610 -2.7 -0.028 (-4.4%) -0.028 (-4.4%) 06/12/2020 69 0.638 -2.5 Total Hip(Right) 11/24/2023 72 0.604 -2.8 0.011 (1.9%) 0.011 (1.9%) 06/12/2020 69 0.592 -2.9 *Denotes significance at 95% confidence level, LSC for Total Hip = 0.027 g/cm2 Clinical Information Provided by Patient: Has used the following medications: Vitamin D, Calcium Has the following medical conditions: Anorexia or Bulimia, Asthma or Emphysema, Cancer, Hysterectomy, uterine ca Patient maximum height was 61.5 Menopause Age: 37 No regular weight bearing exercise Does not regularly consume dairy products Onset of menses at age 8 Number of children 0 Impression: The patient has osteoporosis, based on the Right Femoral Neck T-score. The BMD for the Total Hip(Left) decreased, changing by -4.4% since the last DXA exam. Discussion: INCREASED RISK OF FRACTURE. BONE DENSITY IS UNDESIRABLY LOW AT ONE OR MORE SKELETAL SITES, CONSISTENT WITH POSTMENOPAUSAL OSTEOPOROSIS. This patient's lowest T-score meets the World Health Organization's (WHO) criteria for osteoporosis at one or more sites (T-score -2.5 or below). In untreated patients, the risk of osteoporotic fracture increases approximately two-fold for each 1.0 SD decrease in T-score. Low bone density is not the only risk factor
== END 2023-11-24 07:48 | disposition home or self-care (01) ==
LOC: ANHIMG 07:48
PROVIDERS: PCP Family Medicine; Visit Provider Physician Assistant Medical
DX: M81.0 Age-related osteoporosis without current pathological fracture (principal); I25.118 Atherosclerotic heart disease of native coronary artery with other forms of angina pectoris; I10 Essential (primary) hypertension; R06.02 Shortness of breath; R07.9 Chest pain, unspecified
CPT/HCPCS: 77080

== ENCOUNTER 2024-01-24 10:00 | Outpatient (RCR) | payer SELFPAY ==
[2023-10-22 11:48] VITALS: PULSE 71
== END 2024-01-24 23:59 | disposition home or self-care (01) ==
LOC: ANHCPREHAB 10:00
PROVIDERS: PCP Family Medicine; Visit Provider Family Medicine
DX: I50.9 Heart failure, unspecified (principal); I25.119 Atherosclerotic heart disease of native coronary artery with unspecified angina pectoris; Z95.5 Presence of coronary angioplasty implant and graft
CPT/HCPCS: 93798; 99199

== ENCOUNTER 2024-02-16 10:46 | Outpatient (CLI) | payer MEDICARE, SELFPAY ==
[2024-02-16 11:09] LABS: Basophils Absolute Auto 0.08 K/mm3 (0.00-0.10); Basophils Percent Auto 1.1 % (0.0-1.0); Eosinophils Absolute Auto 0.29 K/mm3 (0.02-0.50); Eosinophils Percent Auto 4.1 % (1.0-6.0); Hematocrit 42.1 % (35.0-42.0); Hemoglobin 14.2 g/dL (11.7-13.8); Immature Granulocyte Absolute 0.02 K/mm3 (0.00-0.00); Immature Granulocyte Percent A 0.3 % (0.0-0.0); Lymphocytes Absolute Auto 1.94 K/mm3 (1.10-4.50); Lymphocytes Percent Auto 27.6 % (18.0-42.0); Mean Corpuscular HGB Conc 33.7 g/dL (32-36); Mean Corpuscular Hemoglobin 31.6 pg (27.0-31.0); Mean Corpuscular Volume 93.8 fL (78.0-102.0); Mean Platelet Volume 10.9 fl (9.2-11.8); Monocytes Absolute Auto 0.49 K/mm3 (0.10-0.90); Neutrophils Percent Auto 59.9 % (50.0-70.0); Platelet Count Result 247 K/mm3 (150-420); Red Blood Count 4.49 M/mm3 (4.20-5.40); Red Cell Distribution Width 13.8 % (11.6-14.4)
[2024-02-16 11:31] LABS: Prothrombin Time 10.7 Seconds (9.50-12.1)
[2024-02-16 11:41] LABS: Anion Gap 6 mmol/L (4-12); Blood Urea Nitrogen 18 mg/dL (7-18); Calcium 9.5 mg/dL (8.5-10.1); Carbon Dioxide 28 mmol/L (21-32); Chloride 102 mmol/L (98-108); Estimated Glomerular Filt Rate > 60; Glucose 102 mg/dL (70-99); Osmolality Calculated 283 mOsm/kg (285-295); Potassium 4.4 mmol/L (3.5-5.1); Sodium 136 mmol/L (136-145)
== END 2024-02-16 10:47 | disposition home or self-care (01) ==
PROVIDERS: PCP Family Medicine
DX: Z01.810 Encounter for preprocedural cardiovascular examination (principal); R79.1 Abnormal coagulation profile
CPT/HCPCS: 36415; 80048; 85025; 85610

== ENCOUNTER 2024-05-01 11:15 | Outpatient (RCR) | payer MEDICARE, SELFPAY | END 2024-07-24 09:09 | disposition home or self-care (01) | LOC: ANHCPREHAB 11:15 | PROVIDERS: PCP Family Medicine; Visit Provider Family Medicine | DX: I50.9 Heart failure, unspecified (principal) | CPT/HCPCS: 93798 ==

== ENCOUNTER 2024-06-21 09:49 | Emergency (ER) | payer MEDICARE, SELFPAY ==
[2024-06-21] VITALS (19 sets, daily range): BP systolic 143–166; BP diastolic 67–85; PULSE 56–70; RESP 11–20; TEMP 36.3–36.6; O2SAT 94–97
--- NOTE | ~2024-06-21 | XR_ITS ---
EXAMINATION: XR chest 1V portable DATE: 06/21/2024 10:30 INDICATION: Left chest pain. TECHNIQUE: frontal view of the chest was obtained. COMPARISON: Chest radiograph dated 10/29/2022 FINDINGS: The lungs remain clear with no focal airspace opacities, pulmonary edema, pleural effusion or pneumot horax. The cardiomediastinal silhouette is normal. Coronary artery stenting. IMPRESSION: 1. No acute cardiopulmonary disease. Reviewed, dictated and finalized at location B.
--- NOTE | 2024-06-21 09:57 | ED_ITS ---
HPI - Chest Pain General Chief Complaint: Chest Pain Stated Complaint: chest pain and headache Time Seen by Provider: 06/21/24 09:57 Source: patient Mode of arrival: ambulatory Limitations: no limitations History of Present Illness HPI narrative: 73-year-old female with a history of hypertension, dyslipidemiachronic low back pain secondary to lumbar radiculopathy, migraine, CAD status post multiple stents with the last stent in February of 2024, diastolic CHF, chronic stable angina, presents to the ED with -- left-sided chest pain since this morning. the pain radiates to the left shoulder. She has nausea without any vomiting. Pain is currently rated a 7/10. Patient does not appear to be in any kind of distress at this time. -- Left facial headache. The patient has migraine and has headaches usually on the left side of the head. Her pain is associated with nausea and photophobia. No focal neuro deficit. -- Hypertension the patient was noted to be hypertensive at home. Currently her blood pressure is 148/76. No fever or chills. No shortness of breath or lightheadedness MD complaint: chest pain Pertinent past history: coronary artery disease Onset (ago): hour(s) ( started 2 hours ago) Timing of current episode: constant Prior episodes: Yes Onset: during rest Pain location: left chest Pain radiation: left shoulder Severity: moderate Pain scale (0-10): 8 Quality: aching Relieving factors: nothing Exacerbating factors: nothing Associated symptoms: nausea Treatment prior to arrival: none Risk Factors Coronary artery disease risk factors: hyperlipidemia and hypertension Thoracic aortic dissection risk factors: none Related Data On Oral Contraceptives: No Home Medications ?Medication ?Instructions ?Recorded ?Confirmed ?Last Taken ?Type nitroglycerin 0.4 mg sublingual 0.4 mg sublingual Q5M PRN Chest 08/13/20 05/22/24 11/09/23 History tablet Pain ranolazine 500 mg tablet,extended 500 mg PO Q12H 08/13/20 05/22/24 11/09/23 History release,12 hr clopidogrel 75 mg tablet (Plavix) 75 mg PO .QD 04/03/22 05/22/24 11/04/23 History atorvastatin 40 mg tablet 40 mg PO QHS 07/10/22 05/22/24 11/09/23 History cilostazol 100 mg tablet 100 mg PO BID 05/02/0405/22/24 11/09/23 History isosorbide mononitrate 30 mg 120 mg PO .QD 01/20/23 05/22/24 11/10/23 History tablet,extended release 24 hr regrncysti-jgnywolgkkwxt-xuvjtoxh 1 tablet PO Q4H PRN Headache 11/03/23 05/22/24 11/09/23 History 50 mg-325 mg-40 mg tablet calcium 500 mg (as 1 tablet PO DAILY 11/03/23 05/22/24 11/09/23 History carbonate)-vitamin D3 10 mcg (400 unit) tablet (Calcium 500 + D) diphenhydramine HCl 25 mg tablet 25 mg PO Q6H PRN Itching 11/03/23 05/22/24 11/09/23 History fluticasone propionate 50 2 spray intranasal DAILY PRN 11/03/23 05/22/24 11/09/23 History mcg/actuation nasal Congestion spray,suspension carvedilol 6.25 mg tablet 12.5 mg PO Q12H 05/22/24 05/22/24 Unknown History lisinopril 2.5 mg tablet 5 mg PO DAILY 05/22/24 05/22/24 Unknown History Allergies Allergy/AdvReac Type Severity Reaction Status Date / Time Influenza Virus Vaccines Allergy Severe Anaphylaxis Verified 06/21/24 09:57 Iodinated Contrast Media Allergy Severe cardiac Verified 06/21/24 09:57 arrest iodine Allergy Severe Anaphylaxis Verified 06/21/24 09:57 melon Allergy Severe Wheezing, Verified 06/21/24 09:57 shortness of breath, rash pneumococcal vaccine Allergy Severe Anaphylaxis Verified 06/21/24 09:57 strawberry Allergy Severe Anaphylaxis Verified 06/21/24 09:57 Tetanus Vaccines and Toxoid Allergy Severe Rash Verified 06/21/24 09:57 adhesive Allergy Intermediate Blister Verified 06/21/24 09:57 amlodipine Allergy Intermediate Rash Verified 06/21/24 09:57 codeine Allergy Intermediate Rash Verified 06/21/24 09:57 cyclobenzaprine Allergy Intermediate Rash Verified 06/21/24 09:57 oseltamivir Allergy Intermediate Rash Verified 06/21/24 09:57 Sulfa (Sulfonamide Allergy Intermediate Rash Verified 06/21/24 09:57 Antibiotics) tolterodine Allergy Intermediate Rash Verified 06/21/24 09:57 tizanidine Allergy Mild Unknown Verified 06/21/24 09:57 aspirin Allergy Unknown UNKNOWN Verified 06/21/24 09:57 cephalexin Allergy Unknown Rash Verified 06/21/24 09:57 chlorzoxazone Allergy Unknown unknown Verified 06/21/24 09:57 doxycycline Allergy Unknown UNKNOWN Verified 06/21/24 09:57 guaifenesin Allergy Unknown UNKNOWN Verified 06/21/24 09:57 naratriptan Allergy Unknown Rash Verified 06/21/24 09:57 orphenadrine Allergy Unknown UNKNOWN Verified 06/21/24 09:57 Penicillins Allergy Unknown UNKNOWN Verified 06/21/24 09:57 prochlorperazine Allergy Unknown UNKNOWN Verified 06/21/24 09:57 propoxyphene Allergy Unknown Rash Verified 06/21/24 09:57 tetracycline Allergy Unknown UNKNOWN Verified 06/21/24 09:57 promethazine (From Phenergan) AdvReac Intermediate Hives Verified 06/21/24 09:57 Review of Systems 2 Review of Systems: All systems reviewed & are unremarkable except as noted in HPI and below Constitutional: Constitutional: Reports as per HPI and Reports no additional constitutional complaints Eyes: Eyes: Reports as per HPI and Reports no additional eye complaints ENT: Reports system reviewed and no additional complaints, except as documented and Reports as per HPI Cardiovascular: Cardiovascular: Reports as per HPI, Reports no additional cardiovascular complaints and Reports chest pain Respiratory: Respiratory: Reports as per HPI and Reports no additional respiratory complaints Gastrointestinal: Gastrointestinal: Reports as per HPI, Reports no additional gastrointestinal complaints and Reports nausea Genitourinary: Genitourinary: Reports no additional female genitourinary complaints and Reports as per HPI Musculoskeletal: Musculoskeletal: Reports no additional musculoskeletal complaints, Reports as per HPI and Reports back pain Integumentary/Breasts: Skin/Breast: Reports system reviewed and no additional complaints, except as docu and Reports as per HPI Neurologic: Reports system reviewed and no additional complaints, except as documented, Reports as per HPI and Reports headache(s) Comments: left facial pain/ headache with nausea and photophobia she also complains of blurred vision. No visual loss. Psychiatric: Psychiatric: Reports no additional psychiatric complaints and Reports as per HPI Endocrine: Endocrine: Reports no additional endocrine complaints and Reports as per HPI Hematologic/Lymphatic: Hematologic/Lymphatic: Reports no additional hematologic/lymphatic complaints and Reports as per HPI Allergic/Immunologic: Allergic/Immunologic: Reports no additional allergic/immunologic complaints and Reports as per HPI PMFSH Past Medical History Medical History Decreased diffusion capacity of lung Encounter for hepatitis C virus screening test for high risk patient Traumatic hematoma of head Hypoxia Kidney disease Headache Allergies Screen for colon cancer Leg skin lesion, left Asthma Hyperlipidemia HTN (hypertension) CHF (congestive heart failure) 2019 echo nl ef, mild lvh, pa 27 mmHg Nausea & vomiting Bronchitis Low vitamin B12 level Cervical spondylosis Numbness of extremity Bone pain Coronary artery disease History of uterine cancer Osteoporosis Migraine Surgical History Surgical History History of lumpectomy of right breast S/P conization of cervix History of back surgery History of heart artery stent History of hysterectomy History of laminectomy History of tonsillectomy and adenoidectomy History of laparoscopic appendectomy History of hernia repair Family History Family History Father Pulmonary disease Heart attack High cholesterol Hypertension Mother Heart attack High cholesterol Heart disease Hypertension Sibling High cholesterol Hypertension Other Alcohol abuse Asthma Social History Social History Smoking status: Never smoker Second hand tobacco smoke exposure: No Alcohol intake: current Drinks per week: 3 Alcohol use details: COCKTAILS Substance use: never Substance use type: does not use Do You Feel Safe in your Home?: Yes Lack of Transportation: No Lack of Food: Never True Current Housing: I Have Housing Concerned About Future Housing: No Difficulty Paying Gas/Electric Bills: No Difficulty Paying for Meds: No Currently Unemployed: No Education: Bachelor's Degree Difficulty w/ Childcare or Family Care: No Living arrangements: alone Occupation/Education: retired 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 Const: General: healthy appearing and no acute distress Nutritional Appearance: well nourished Orientation/consciousness: patient oriented x3 Limitations: no limitations HENMT: Head: normal to inspection Ears: external ears normal Face and sinus: normal facial exam Mouth: Yes Normal oral and palatal mucosa present Throat: posterior oropharynx normal Eyes: Conjunctivae: conjunctivae normal Pupils: Equal, round and reactive pupils present EOM: EOMs intact bilaterally Direct Ophthalmoscopy: p hotophobia Neck: Neck: normal visual inspection, no lymphadenopathy and no meningeal signs Chest: Chest palpation & inspection: normal inspection of the chest Resp: Effort & Inspection: normal respiratory effort Auscultation: clear to auscultation bilaterally Cardio: Rate: regular rate Rhythm: regular rhythm GI: Auscultation: normal bowel sounds Other: No tenderness/rigidity / rebound. : General: Yes no CVA tenderness Back/Spine/Pelvis: Back: no CVA tenderness Skin: General skin exam: normal color Rashes: no rashes Wounds: no wounds Neuro: General: patient oriented x3, moves all extremities, no meningeal signs, no focal motor deficits and CN's II-XI intact bilaterally Cranial nerves: Yes Nystagmus not present Speech: normal speech Gait exam (Neuro): Normal gait present Extrem: General: normal to inspection and no clubbing, cyanosis or edema Psych: Mental Status: mental status grossly normal Affect: normal affect Attitude: cooperative Course Course Emergency Course: Left chest pain- sublingual nitro decreased the pain from 10/22 to 04/24. troponin is noted to be negative x2. left-sided headache- Patient takes codeine for her headaches at home. headache has improved with [place]. Vital Signs Vital signs: Vital Signs Oxygen Delivery Room Air 06/21/24 09:49 Temperature 36.3 C L 06/21/24 09:53 Pulse Rate 58 L 06/21/24 13:00 Respiratory Rate 17 06/21/24 13:00 Blood Pressure 146/74 H 06/21/24 13:00 Pulse Oximetry 94 06/21/24 13:00 Oxygen Delivery Room Air 06/21/24 10:29 MDM - Chest Pain MDM Narrative Medical decision making narrative: Migraine headache chest pain Differential Diagnosis Differential diagnosis: Likely pneumothorax, stable angina and atypical chest pain Medical Records Data Attestation: I reviewed the patient's medical records. Lab Data Attestation: I reviewed the patient's lab results. 06/21/24 10:33 06/21/24 10:33 Labs: Lab Results 06/21/24 06/21/24 Range/Units 10:33 12:51 WBC 5.6 (4.8-10.8) K/mm3 RBC 4.50 (4.20-5.40) M/mm3 Hgb 13.7 (11.7-13.8) g/dL Hct 41.6 (35.0-42.0) % MCV 92.4 (78.0-102.0) fL MCH 30.4 (27.0-31.0) pg MCHC 32.9 (32-36) g/dL RDW 14.2 (11.6-14.4) % Plt Count 219 (150-420) K/mm3 MPV 10.9 (9.2-11.8) fl Immature Gran % (Auto) 0.0 (0.0-0.0) % Neut % (Auto) 61.1 (50.0-70.0) % Lymph % (Auto) 26.1 (18.0-42.0) % [facility] % (Auto) 7.4 (2.0-11.0) % Eos % (Auto) 4.7 (1.0-6.0) % Baso % (Auto) 0.7 (0.0-1.0) % Lymph # (Auto) 1.45 (1.10-4.50) K/mm3 [facility] # (Auto) 0.41 (0.10-0.90) K/mm3 Eos # (Auto) 0.26 (0.02-0.50) K/mm3 Baso # (Auto) 0.04 (0.00-0.10) K/mm3 Abs Immat Gran (auto) 0.00 (0.00-0.00) K/mm3 Absolute Neuts (auto) 3.39 (1.70-7.20) K/mm3 Absolute Nucleated RBC 0.00 (0.00-0.00) K/mm3 Nucleated RBC % 0.0 (0-0.0) % PT 10.5 (9.50-12.1) Seconds INR 0.9 APTT 24.8 (23.9-30.70) Sec Sodium 141 (136-145) mmol/L Potassium 4.2 (3.5-5.1) mmol/L Chloride 105 (98-108) mmol/L Carbon Dioxide 29 (21-32) mmol/L Anion Gap 7 (4-12) mmol/L BUN 13 (7-18) mg/dL Creatinine 0.82 (0.55-1.02) mg/dL Estim Creat Clear Calc 38 ml/min Estimated GFR > 60 (59 - ) Glucose 89 (70-99) mg/dL Calculated Osmolality 291 (285-295) mOsm/kg Calcium 8.9 (8.5-10.1) mg/dL Total Bilirubin 0.7 (0.00-1.00) mg/dL AST 9 L (15-37) U/L ALT 21 (14-59) U/L Alkaline Phosphatase 65 (46-116) U/L Troponin I 10.1 11.2 (0.00-60.4) ng/L NT-Pro-B Natriuret Pep 284 H (0-125) pg/mL Total Protein 6.4 (6.4-8.2) g/dL Albumin 3.4 (3.4-5.0) g/dL ECG Data EKG #1: ECG completion date: 06/21/24 ECG completion time: 09:57 Interpretation: normal sinus rhythm. Normal axis. No ST elevation. Discharge Plan Discharge Clinical Impression: Angina at rest Migraine Qualifiers: Migraine type: unspecified Status migrainosus presence: without status migrainosus Intractability: not intractable Qualified Code(s): G43.909 - Migraine, unspecified, not intractable, without status migrainosus Patient Disposition: Home Condition: Stable Instructions: Antibiotic Form, Angina (ED), Migraine Headache (ED) Patient Language: Monegasque Prescriptions: No Action clopidogrel [Plavix] 75 mg tablet 75 mg PO .QD epinephrine [EpiPen 2-Terell] 0.3 mg/0.3 mL auto-injector 0.3 mg IM ONCE Qty: 2 0RF Rx Instructions: as a single dose; may repeat once alendronate [Fosamax] 70 mg tablet 70 mg PO WEEKLY Qty: 13 3RF carvedilol 6.25 mg tablet 12.5 mg PO Q12H Rx Instructions: must administer with a meal/food lisinopril 2.5 mg tablet 5 mg PO DAILY nitroglycerin 0.4 mg tablet, sublingual 0.4 mg sublingual Q5M PRN (Reason: Chest Pain) Rx Instructions: do not exceed 3 doses per episode ranolazine 500 mg tablet extended release 12 hr 500 mg PO Q12H cilostazol 100 mg tablet 100 mg PO BID hydrocodone-acetaminophen 5-325 mg tablet 1 tablet PO Q6H PRN (Reason: migraine headache) Qty: 30 0RF promethazine 25 mg tablet 25 mg PO Q6H PRN (Reason: nausea and vomiting) Qty: 20 1RF vtohpgkfdm-skwurrlyargfl-hldm [Fioricet] 50-325-40 mg Tablet 1 tablet PO Q4H PRN (Reason: Headache) calcium carbonate-vitamin D3 [Calcium 500 + D] 500 mg-10 mcg (400 unit) Tablet 1 tablet PO DAILY diphenhydramine HCl 25 mg Tablet 25 mg PO Q6H PRN (Reason: Itching) fluticasone propionate [Flonase] 50 mcg/actuation [place],Suspension 2 spray INTRANASAL DAILY PRN (Reason: Congestion) Rx Instructions: administer into each nostril atorvastatin 40 mg tablet 40 mg PO QHS albuterol sulfate 90 mcg/actuation HFA aerosol inhaler 1 inh inhalation Q4H PRN (Reason: shortness of breath or wheezing) Qty: 8.5 1RF isosorbide mononitrate 30 mg tablet extended release 24 hr 120 mg PO .QD pantoprazole 40 mg tablet,delayed release (DR/EC) See Rx Instructions .ROUTE .COMPLEX Qty: 180 2RF Dose Instruction: TAKE 1 TABLET BY MOUTH TWICE A DAY Rx Instructions: TAKE 1 TABLET BY MOUTH TWICE A DAY mirabegron [Myrbetriq] 25 mg tablet extended release 24 hr 25 mg PO DAILY Qty: 30 2RF Follow-up/Referrals: Vitaly Manzanares MD [Primary Care Provider] - Time of Disposition: 13:37
[2024-06-21] MEDS: CLOPIDOGREL BISULFATE 75 MG TABLET PO (10:27)
[2024-06-21] MEDS: NITROGLYCERIN SL 0.4 MG TABLET SUBLINGUAL (10:28)
--- NOTE | 2024-06-21 10:28 | PC.NURSE ---
PT HAS TAKEN MEDICATION WITHOUT DIFFICULTY. SHE IS AWARE THE NITRO MAY WORSEN HER HEADACHE AND CHOSE TO TAKE IT. REPORTING CP AT 8/10. WILL CONTINUE TO MONITOR.
--- NOTE | 2024-06-21 10:33 | PC.NURSE ---
PAIN IS 3/10 AT THIS TIME.
[2024-06-21 10:39] LABS: Basophils Absolute Auto 0.04 K/mm3 (0.00-0.10); Basophils Percent Auto 0.7 % (0.0-1.0); Eosinophils Absolute Auto 0.26 K/mm3 (0.02-0.50); Eosinophils Percent Auto 4.7 % (1.0-6.0); Hematocrit 41.6 % (35.0-42.0); Hemoglobin 13.7 g/dL (11.7-13.8); Lymphocytes Absolute Auto 1.45 K/mm3 (1.10-4.50); Lymphocytes Percent Auto 26.1 % (18.0-42.0); Mean Corpuscular HGB Conc 32.9 g/dL (32-36); Mean Corpuscular Hemoglobin 30.4 pg (27.0-31.0); Mean Corpuscular Volume 92.4 fL (78.0-102.0); Mean Platelet Volume 10.9 fl (9.2-11.8); Monocytes Absolute Auto 0.41 K/mm3 (0.10-0.90); Monocytes Percent Auto 7.4 % (2.0-11.0); Neutrophils Absolute Auto 3.39 K/mm3 (1.70-7.20); Neutrophils Percent Auto 61.1 % (50.0-70.0); Platelet Count Result 219 K/mm3 (150-420); Red Cell Distribution Width 14.2 % (11.6-14.4); White Blood Count 5.6 K/mm3 (4.8-10.8)
--- NOTE | 2024-06-21 10:44 | PC.NURSE ---
pain is 2/10, lights off as requested, bed adjusted and warm blanket provided. vss per monitor. nad noted. will continue to monitor.
[2024-06-21 10:53] LABS: INR 0.9; Partial Thromboplastin Time 24.8 Sec (23.9-30.70); Prothrombin Time 10.5 Seconds (9.50-12.1)
[2024-06-21 10:55] LABS: Alanine Aminotransferase 21 U/L (14-59); Anion Gap 7 mmol/L (4-12); Aspartate Amino Transferase 9 U/L (15-37); Bilirubin,Total 0.7 mg/dL (0.00-1.00); Blood Urea Nitrogen 13 mg/dL (7-18); Calcium 8.9 mg/dL (8.5-10.1); Carbon Dioxide 29 mmol/L (21-32); Chloride 105 mmol/L (98-108); Estimated CRCL calculation 38 ml/min; Estimated Glomerular Filt Rate > 60; Glucose 89 mg/dL (70-99); Osmolality Calculated 291 mOsm/kg (285-295); Potassium 4.2 mmol/L (3.5-5.1); Sodium 141 mmol/L (136-145)
[2024-06-21 10:56] LABS: Albumin Level 3.4 g/dL (3.4-5.0); Alkaline Phosphatase 65 U/L (46-116); Total Protein 6.4 g/dL (6.4-8.2)
--- OUTSIDE RECORDS SUMMARY | 2024-06-21 10:59 | XMS_ITS | Encounter Summary ---
Author Organization [facility] Address 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 Gender Identity Not on file Sexual Orientation Not on file documented as of this encounter Plan of Treatment Upcoming Encounters Date Type Department Care Team (Late st Contact Info) Description 07/04/2024 11:15 AM CDT Office Visit [facility] Heart and Vascular At [place] [address] [place] [address] Esteban Dueñas MD [address] [place] [address] [address] [place] [address] documented as of this encounter Visit Diagnoses Not on filedocumented in this encounter Care Teams Seam Stayer Relationship Specialty Start Date End Date Vitaly Manzanares MD [address] [place] [id number] PCP - General Family Practice 05/19/22 documented as of this encounter
--- OUTSIDE RECORDS SUMMARY | 2024-06-21 10:59 | XMS_ITS | Encounter Summary ---
Author Organization [facility] Address 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 Gender Identity Not on file Sexual Orientation Not on file documented as of this encounter Plan of Treatment Upcoming Encounters Date Type Department Care Team (Late st Contact Info) Description 07/04/2024 11:15 AM CDT Office Visit [facility] Heart and Vascular At [facility] [address] [place] [address] Esteban Dueñas MD [facility] [address] [place] [address] documented as of this encounter Visit Diagnoses Diagnosis Displacement of intervertebral disc, site unspecified, without myelopathy- Primary documented in this encounter Care Teams Customer Experience Leader Relationship Specialty Start Date End Date Vitaly Manzanares MD [address] [place] [address] PCP - General Family Practice 05/19/22 documented as of this encounter
--- OUTSIDE RECORDS SUMMARY | 2024-06-21 10:59 | XMS_ITS | Encounter Summary ---
Author Organization [facility] Address 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 Gender Identity Not on file Sexual Orientation Not on file documented as of this encounter Plan of Treatment Upcoming Encounters Date Type Department Care Team (Late st Contact Info) Description 07/04/2024 11:15 AM CDT Office Visit [facility] [place] [address] [facility] [address] [place] [address] Esteban Dueñas MD [facility] [address] [facility] [address] [place] [address] documented as of this encounter Visit Diagnoses Not on filedocumented in this encounter Care Teams Wire Photo Operator News Relationship Specialty Start Date End Date Vitaly Manzaanres MD [address] [place] [phone] PCP - General Family Practice 05/19/22 documented as of this encounter
--- OUTSIDE RECORDS SUMMARY | 2024-06-21 10:59 | XMS_ITS | Encounter Summary ---
Author Organization [facility] Address [address] [place] [address] Care Team Providers Care Physician Scientist Name Role Phone Vitaly Manzanares MD Primary Care Provider Encounter Details Date Type Department Care Team (Late st Contact Info) Description 07/18/2001 Outpatient Historical [facility] Internal Medicine [place] [address] [place] [address] Gadiel Christensen MD [address] [place] [phone] Social History Tobacco Use Types Packs/Day Years Used Date Smoking Tobacco: Never Assessed Comments Unknown Sex and Gender Information Value Date Recorded Sex Assigned at Not on file 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 Gender Identity Not on file Sexual Orientation Not on file documented as of this encounter Plan of Treatment Upcoming Encounters Date Type Department Care Team (Late st Contact Info) Description 07/04/2024 11:15 AM CDT Office Visit [facility] Heart and Vascular At [facility] [address] [place] [address] Esteban Dueñas MD [facility] [address] [facility] [address] [place] [address] documented as of this encounter Visit Diagnoses Not on filedocumented in this encounter Care Teams Physician Scientist Relationship Specialty Start Date End Date Vitaly Manzanares MD [address] [place] [phone] PCP - General Family Practice 05/19/22 documented as of this encounter
--- OUTSIDE RECORDS SUMMARY | 2024-06-21 10:59 | XMS_ITS | Encounter Summary ---
Author Organization [facility] Address [address] [place] [address] Care Team Providers Care Cnc Service Engineer Name Role Phone Vitaly Manzanares MD Primary Care Provider Encounter Details Date Type Department Care Team (Late st Contact Info) Description 03/30/2001 Outpatient Historical [facility] Internal Medicine [place] [id number] [place] [address] Gadiel Christensen MD [address] [place] [phone] Social History Tobacco Use Types Packs/Day Years Used Date Smoking Tobacco: Never Assessed Comments Unknown Sex and Gender Information Value Date Recorded Sex Assigned at Not on file 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 Gender Identity Not on file Sexual Orientation Not on file documented as of this encounter Plan of Treatment Upcoming Encounters Date Type Department Care Team (Late st Contact Info) Description 07/04/2024 11:15 AM CDT Office Visit [facility] Heart and Vascular At [facility] [address] [address] [place] [address] Esteban Dueñas MD [facility] [address] [facility] [address] [place] [address] documented as of this encounter Visit Diagnoses Not on filedocumented in this encounter Care Teams Cnc Service Engineer Relationship Specialty Start Date End Date Vitaly Manzanares MD [address] [place] [phone] PCP - General Family Practice 05/19/22 documented as of this encounter
--- OUTSIDE RECORDS SUMMARY | 2024-06-21 10:59 | XMS_ITS | Encounter Summary ---
Author Organization [facility] Address 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 Gender Identity Not on file Sexual Orientation Not on file documented as of this encounter Plan of Treatment Upcoming Encounters Date Type Department Care Team (Late st Contact Info) Description 07/04/2024 11:15 AM CDT [facility] Visit [facility] At [facility] [address] [facility] [address] [place] [address] Esteban Dueñas MD [facility] [address] [facility] [address] [place] [address] documented as of this encounter Visit Diagnoses Not on filedocumented in this encounter Care Teams Safety Teacher Relationship Specialty Start Date End Date Vitaly Manzanares MD [address] [place] [address] PCP - General Family Practice 05/19/22 documented as of this encounter
--- OUTSIDE RECORDS SUMMARY | 2024-06-21 10:59 | XMS_ITS | Encounter Summary ---
Author Organization [facility] Address 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 Gender Identity Not on file Sexual Orientation Not on file documented as of this encounter Plan of Treatment Upcoming Encounters Date Type Department Care Team (Late st Contact Info) Description 07/04/2024 11:15 AM CDT Office Visit [facility] Heart and Vascular At [address] [place] [address] Esteban Dueñas MD [address] [place] [address] [address] [place] [address] documented as of this encounter Procedures Procedure Name Priority Date/Time Associated Diagnosis Comments MAGNESIUM LEVEL Routine 10/02/2005 3:26 PM CDT LEAD BLOOD Routine 10/02/2005 3:26 PM CDT BASIC METABOLIC PANEL Routine 10/02/2005 3:26 PM CDT documented in this encounter Results * LEAD BLOOD (10/02/2005 3:26 PM CDT) LEAD BLOOD 3 <10 ug/dL INTERFACE SYSTEM LEAD COLLECTION SAMPLE VENOUS INTERFACE SYSTEM Comment: [facility] performed by: [facility] [id number] [place] [id number] DEMAR BUCK MD 10/02/2005 3:26 PM CDT Gadiel Christensen MD CHEMISTRY ORDERABLES COM Final Result Performing Organization Address City/[facility] de Phone Number INTERFACE SYSTEM Refer to clinic/hospital department * MAGNESIUM LEVEL (10/02/2005 3:26 PM CDT) MAGNESIUM 1.7 1.5 - 2.5 mg/dL INTERFACE SYSTEM 10/02/2005 3:26 PM CDT Gadiel Christensen MD CHEMISTRY ORDERABLES Final Res ult Performing Organization Address [facility] de Phone Number INTERFACE SYSTEM Refer to clinic/hospital department * BASIC METABOLIC PANEL (10/02/2005 3:26 PM CDT) GLUCOSE 92 65 - 99 mg/dL INTERFACE SYSTEM Comment:Note: Effective July 28, 2005, reference range now reflects a fasting st ate. CREATININE 0.6 0.4 - 1.2 mg/dL INTERFACE SYSTEM CALCIUM 9.2 8.6 - 10.2 mg/dL INTERFACE SYSTEM BUN 8 6 - 20 mg/dL INTERFACE SYSTEM SODIUM 144 135 - 145 mmol/L INTERFACE SYSTEM POTASSIUM 3.6 3.5 - 4.9 mmol/L INTERFACE SYSTEM CHLORIDE 106 96 - 108 mmol/L INTERFACE SYSTEM CO2 28 22 - 30 mmol/L INTERFACE SYSTEM 10/02/2005 3:26 PM CDT us Gadiel Christensen MD CHEMISTRY ORDERABLES Final Res ult Performing Organization Address City/[facility] Co de Phone Number INTERFACE SYSTEM Refer to clinic/hospital department documented in this encounter Visit Diagnoses Diagnosis Hypopotassemia- Primary documented in this encounter Care Teams Tire Recapper Relationship Specialty Start Date End Date Vitaly Manzanares MD [address] [place] [address] PCP - General Family Practice 05/19/22 documented as of this encounter
--- OUTSIDE RECORDS SUMMARY | 2024-06-21 10:59 | XMS_ITS | Encounter Summary ---
Author Organization [facility] Address [address] [place] [address] Care Team Providers Care Pipe Tester Name Role Phone Vitaly Manzanares MD Primary Care Provider [phone] Encounter Details Date Type Department Care Team (Late st Contact Info) Description 02/07/2002 Outpatient Historical [facility] Internal Medicine [place] [address] [place] [address] Gadiel Christensen MD [address] [place] [phone] Social History Tobacco Use Types Packs/Day Years Used Date Smoking Tobacco: Never Assessed Comments Unknown Sex and Gender Information Value Date Recorded Sex Assigned at Not on file Legal Sex Female 5:01 AM QUOTATION CHECKER Gender Identity Not on file Sexual Orientation Not on file documented as of this encounter Plan of Treatment Upcoming Encounters Date Type Department Care Team (Late st Contact Info) Description 07/04/2024 11:15 AM CDT Office Visit [facility] Heart and Vascular At [facility] [address] [facility] [address] [place] [address] Esteban Dueñas MD [facility] [address] [facility] [address] [place] [address] documented as of this encounter Visit Diagnoses Not on filedocumented in this encounter Care Teams Pipe Tester Relationship Specialty Start Date End Date Vitaly Manzanares MD [address] [place] [address] PCP - General Family Practice 05/19/22 documented as of this encounter
--- OUTSIDE RECORDS SUMMARY | 2024-06-21 10:59 | XMS_ITS | Encounter Summary ---
Author Organization [facility] Address [address] [place] [address] Care Team Providers Care Accounting Systems Analyst Name Role Phone Vitaly Manzanares MD Primary Care Provider [phone] Encounter Details Date Type Department Care Team (Late Contact Info) Description 12/30/2001 Outpatient Historical [facility] Internal Medicine [place] [address] [place] [address] Esteban Otto MD [address] [place] [address] Social History Tobacco Use Types Packs/Day Years Used Date Smoking Tobacco: Never Assessed Comments Unknown Sex and Gender Information Value Date Recorded Sex Assigned at Not on file Legal Sex Female 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 [address] [place] [address] documented as of this encounter Visit Diagnoses Not on filedocumented in this encounter Care Teams Accounting Systems Analyst Relationship Specialty Start Date End Date Vitaly Manzanares MD [address] [place] [address] PCP - General Family Practice 05/19/22 documented as of this encounter
--- OUTSIDE RECORDS SUMMARY | 2024-06-21 10:59 | XMS_ITS | Encounter Summary ---
Author Organization [facility] Address [address] [place] [address] Care Team Providers Care Beauty Director Name Role Phone Vitaly Manzanares MD Primary Care Provider Encounter Details Date Type Department Care Team (Late st Contact Info) Description 11/19/2004 Outpatient Historical [facility] Gadiel Christensen MD [address] [place] [phone] CERVICALGIA (Primary Dx) Social History Tobacco Use Types Packs/Day Years Used Date Smoking Tobacco: Never Assessed Comments Unknown Sex and Gender Information Value Date Recorded Sex Assigned at Not on file Legal Sex Female 5:01 AM TRANSIT DRIVER Gender Identity Not on file Sexual Orientation Not on file documented as of this encounter Plan of Treatment Upcoming Encounters Date Type Department Care Team (Late st Contact Info) Description 07/04/2024 11:15 AM CDT Office Visit [facility] Heart and Vascular At [address] [place] [address] Esteban Dueñas MD [address] [place] [address] [address] [place] [address] documented as of this encounter Visit Diagnoses Diagnosis Cervicalgia- Primary documented in this encounter Care Teams Beauty Director Relationship Specialty Start Date End Date Vitaly Manzanares MD [address] [place] [address] PCP - General Family Practice 05/19/22 documented as of this encounter
--- OUTSIDE RECORDS SUMMARY | 2024-06-21 10:59 | XMS_ITS | Encounter Summary ---
Author Organization [facility] Address [address] [place] [address] Care Team Providers Care Sound Tester Name Role Phone Vitaly Manzanares MD Primary Care Provider [phone] Encounter Details Date Type Department Care Team (Late st Contact Info) Description 04/04/2004 Outpatient Historical [facility] Gadiel Christensen MD [address] [place] [phone] DISC DIS NEC/NOS-UNSPEC (Primary Dx) Social History Tobacco Use Types Packs/Day Years Used Date Smoking Tobacco: Never Assessed Comments Unknown Sex and Gender Information Value Date Recorded Sex Assigned at Not on file Legal Sex Female 5:01 AM 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 ASSISTANT Gender Identity Not on file Sexual Orientation Not on file documented as of this encounter Plan of Treatment Upcoming Encounters Date Type Department Care Team (Late Contact Info) Description 07/04/2024 11:15 AM CDT Office Visit [facility] Heart and Vascular At [address] [place] [address] Esteban Dueñas MD [address] [place] [address] [address] [place] [address] documented as of this encounter Visit Diagnoses Diagnosis Other and unspecified disc disorder of unspecified region- Primary documented in this encounter Care Teams Sound Tester Relationship Specialty Start Date End Date Vitaly Manzanares MD [address] [place] [address] PCP - General Family Practice 05/19/22 documented as of this encounter
--- OUTSIDE RECORDS SUMMARY | 2024-06-21 10:59 | XMS_ITS | Encounter Summary ---
Author Organization [facility] Address [address] [place] [address] Care Team Providers Care Biofuels Production Manager Name Role Phone Vitaly Manzanares MD Primary Care Provider [phone] Encounter Details Date Type Department Care Team (Late st Contact Info) Description 06/15/2003 Outpatient Historical [facility] Internal Medicine [place] [place] [address] Gadiel Christensen MD [address] [place] [phone] Social History Tobacco Use Types Packs/Day Years Used Date Smoking Tobacco: Never Assessed Comments Unknown Sex and Gender Information Value Date Recorded Sex Assigned at Not on file Legal Sex Female 5:01 AM ALLIED HEALTH INSTRUCTOR Gender Identity Not on file Sexual Orientation Not on file documented as of this encounter Plan of Treatment Upcoming Encounters Date Type Department Care Team (Late st Contact Info) Description 07/04/2024 11:15 AM CDT Office Visit [facility] Heart and Vascular At [facility] [address] [facility] [facility] [address] [place] [address] Esteban Dueñas MD [facility] [address] [facility] [address] [place] [address] documented as of this encounter Visit Diagnoses Not on filedocumented in this encounter Care Teams Biofuels Production Manager Relationship Specialty Start Date End Date Vitaly Manzanares MD [address] [place] [address] PCP - General Family Practice 05/19/22 documented as of this encounter
--- OUTSIDE RECORDS SUMMARY | 2024-06-21 10:59 | XMS_ITS | Encounter Summary ---
Author Organization [facility] Address [address] [place] [address] Care Team Providers Care Speech And Drama Teacher Name Role Phone Vitaly Manzanares MD Primary Care Provider Encounter Details Date Type Department Care Team (Late st Contact Info) Description 01/28/2004 Outpatient Historical [facility] Internal Medicine [place] [address] [place] [address] Gadiel Christensen MD [address] [place] [phone] Social History Tobacco Use Types Packs/Day Years Used Date Smoking Tobacco: Never Assessed Comments Unknown Sex and Gender Information Value Date Recorded Sex Assigned at Not on file Legal Sex Female 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 Gender Identity Not on file Sexual Orientation Not on file documented as of this encounter Plan of Treatment Upcoming Encounters Date Type Department Care Team (Late st Contact Info) Description 07/04/2024 11:15 AM CDT Office Visit [facility]3] Heart and Vascular At [facility] [address] [facility] [address] [place] [address] Esteban Dueñas MD [facility] [address] [facility] [address] [place] [address] documented as of this encounter Visit Diagnoses Not on filedocumented in this encounter Care Teams Speech And Drama Teacher Relationship Specialty Start Date End Date Vitaly Manzanares MD [address] [place] [address] PCP - General Family Practice 05/19/22 documented as of this encounter
--- OUTSIDE RECORDS SUMMARY | 2024-06-21 10:59 | XMS_ITS | Encounter Summary ---
Author Organization [facility] Address 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 Gender Identity Not on file Sexual Orientation Not on file documented as of this encounter Plan of Treatment Upcoming Encounters Date Type Department Care Team (Late Contact Info) Description 07/04/2024 11:15 AM CDT Office Visit [facility] Heart and Vascular At [address] [place] [address] Esteban Dueñas MD [address] [place] [address] [address] [place] [address] documented as of this encounter Visit Diagnoses Diagnosis Nonspecific (abnormal) findings on radiological and other examination of skull and head- Primary documented in this encounter Care Teams Career Specialist Relationship Specialty Start Date End Date Vitaly Manzanares MD [address] [place] [address] PCP - General Family Practice 05/19/22 documented as of this encounter
--- OUTSIDE RECORDS SUMMARY | 2024-06-21 10:59 | XMS_ITS | Encounter Summary ---
Author Organization [facility] Address [address] [place] [address] Care Team Providers Care Coremaker Experimental Name Role Phone Vitaly Manznaares MD Primary Care Provider Encounter Details Date Type Department Care Team (Late st Contact Info) Description 11/27/2003 Outpatient Historical [facility] Internal Medicine [address] [place] [address] Gadiel Christensen MD [address] [place] [phone] Social History Tobacco Use Types Packs/Day Years Used Date Smoking Tobacco: Never Assessed Comments Unknown Sex and Gender Information Value Date Recorded Sex Assigned at Not on file Legal Sex Female 5:01 AM CALL CENTER OPERATOR Gender Identity Not on file Sexual Orientation Not on file documented as of this encounter Plan of Treatment Upcoming Encounters Date Type Department Care Team (Late st Contact Info) Description 07/04/2024 11:15 AM CDT Office Visit [facility] Heart and Vascular At [facility] [address] [facility] [address] [place] [address] Esteban Dueñas MD [facility] [address] [facility] [address] [place] [address] documented as of this encounter Visit Diagnoses Not on filedocumented in this encounter Care Teams Coremaker Experimental Relationship Specialty Start Date End Date Vitaly Manzanares MD [address] [place] [address] PCP - General Family Practice 05/19/22 documented as of this encounter
--- OUTSIDE RECORDS SUMMARY | 2024-06-21 10:59 | XMS_ITS | Encounter Summary ---
Author Organization [facility] Address [address] [place] [address] Care Team Providers Care Terrazzo Polisher Helper Name Role Phone Vitaly Manzanares MD Primary Care Provider Encounter Details Date Type Department Care Team (Late st Contact Info) Description 05/19/2005 Outpatient Historical [facility] Internal Medicine [place] [address] [place] [address] Gadiel Christensen MD [address] [place] [phone] Social History Tobacco Use Types Packs/Day Years Used Date Smoking Tobacco: Never Assessed Comments Unknown Sex and Gender Information Value Date Recorded Sex Assigned at Not on file Legal Sex Female 5:01 AM FORENSIC SCIENTIST Gender Identity Not on file Sexual Orientation Not on file documented as of this encounter Plan of Treatment Upcoming Encounters Date Type Department Care Team (Late st Contact Info) Description 07/04/2024 11:15 AM CDT Office Visit [facility] Heart and Vascular At [facility] [address] [facility] [address] [place] [address] Esteban Dueñas MD [facility] [address] [facility] [address] [place] [address] documented as of this encounter Visit Diagnoses Not on filedocumented in this encounter Care Teams Terrazzo Polisher Helper Relationship Specialty Start Date End Date Vitaly Manzanares MD [address] [place] [address] PCP - General Family Practice 05/19/22 documented as of this encounter
--- OUTSIDE RECORDS SUMMARY | 2024-06-21 10:59 | XMS_ITS | Encounter Summary ---
Author Organization [facility] Address [address] [place] [address] Care Team Providers Care Platform Power Technician Name Role Phone Vitaly Manzanares MD Primary Care Provider [phone] Encounter Details Date Type Department Care Team (Late st Contact Info) Description 05/10/2002 Outpatient Historical [facility] Internal Medicine [id number] [place] [address] Gadiel Christensen MD [address] [place] [phone] Social History Tobacco Use Types Packs/Day Years Used Date Smoking Tobacco: Never Assessed Comments Unknown Sex and Gender Information Value Date Recorded Sex Assigned at Not on file Legal Sex Female 5:01 AM LEASE ADMINISTRATOR Gender Identity Not on file Sexual Orientation Not on file documented as of this encounter Plan of Treatment Upcoming Encounters Date Type Department Care Team (Late st Contact Info) Description 07/04/2024 11:15 AM CDT Office Visit [facility] Heart and Vascular At [facility] [address] [facility] [address] [place] [address] Esteban Dueñas MD [facility] [address] [facility] [address] [place] [address] documented as of this encounter Visit Diagnoses Not on filedocumented in this encounter Care Teams Platform Power Technician Relationship Specialty Start Date End Date Vitaly Manzanares MD [address] [place] [address] PCP - General Family Practice 05/19/22 documented as of this encounter
--- OUTSIDE RECORDS SUMMARY | 2024-06-21 10:59 | XMS_ITS | Encounter Summary ---
Author Organization [facility] Address 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 Gender Identity Not on file Sexual Orientation Not on file documented as of this encounter Plan of Treatment Upcoming Encounters Date Type Department Care Team (Late st Contact Info) Description 07/04/2024 11:15 AM CDT Office Visit [facility] Heart and Vascular At [address] [place] [address] Esteban Dueñas MD [address] [place] [address] [address] [place] [address] documented as of this encounter Visit Diagnoses Diagnosis Other screening mammogram- Primary documented in this encounter Care Teams Clinical Secretary Relationship Specialty Start Date End Date Vitaly Manzanares MD [address] [place] [address] PCP - General Family Practice 05/19/22 documented as of this encounter
--- OUTSIDE RECORDS SUMMARY | 2024-06-21 10:59 | XMS_ITS | Encounter Summary ---
Author Organization [facility] Address [address] [place] [address] Care Team Providers Care Account Management Specialist Name Role Phone Vitaly Manzanares MD Primary Care Provider [phone] Encounter Details Date Type Department Care Team (Latest Contact Info) Description 06/07/2004 Outpatient Historical [facility] Gadiel Christensen MD [address] [place] [id number] DISC DEGENERATION NOS (Primary Dx) Social History Tobacco Use Types Packs/Day Years Used Date Smoking Tobacco: Never Assessed Comments Unknown Sex and Gender Information Value Date Recorded Sex Assigned at Not on file Legal Sex Female 5:01 AM BILLET SAWYER Gender Identity Not on file Sexual Orientation Not on file documented as of this encounter Plan of Treatment Upcoming Encounters Date Type Department Care Team (Late st Contact Info) Description 07/04/2024 11:15 AM CDT Office Visit [facility] At [facility] [address] [place] [address] Esteban Dueñas MD [facility] [address] [facility] [address] [place] [address] documented as of this encounter Visit Diagnoses Diagnosis Degeneration of intervertebral disc, site unspecified- Primary documented in this encounter Care Teams Account Management Specialist Relationship Specialty Start Date End Date Vitaly Manzanares MD [address] [place] [address] PCP - General Family Practice 05/19/22 documented as of this encounter
--- OUTSIDE RECORDS SUMMARY | 2024-06-21 10:59 | XMS_ITS | Encounter Summary ---
Author Organization [facility] Address [address] [place] [address] Care Team Providers Care Homoeopath Name Role Phone Vitaly Manzanares MD Primary Care Provider [phone] Encounter Details Date Type Department Care Team (Late st Contact Info) Description 11/07/2001 Outpatient Historical [facility] [address] [place] [address] Gadiel Christensen MD [address] [place] [phone] Social History Tobacco Use Types Packs/Day Years Used Date Smoking Tobacco: Never Assessed Comments Unknown Sex and Gender Information Value Date Recorded Sex Assigned at Not on file Legal Sex Female 5:01 AM LIGHTING FIXTURES 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 Gender Identity Not on file Sexual Orientation Not on file documented as of this encounter Plan of Treatment Upcoming Encounters Date Type Department Care Team (Late st Contact Info) Description 07/04/2024 11:15 AM CDT Office Visit [facility] At [facility] [address] [place] [address] Esteban Dueñas MD [facility] [address] [facility] [address] [place] [address] documented as of this encounter Visit Diagnoses Not on filedocumented in this encounter Care Teams Homoeopath Relationship Specialty Start Date End Date Vitaly Manzanares MD [address] [place] [phone] PCP - General Family Practice 05/19/22 documented as of this encounter
--- OUTSIDE RECORDS SUMMARY | 2024-06-21 10:59 | XMS_ITS | Encounter Summary ---
Author Organization [facility] Address [address] [place] [address] Care Team Providers Care Pheresis Specialist Name Role Phone Vitaly Manzanares MD Primary Care Provider Encounter Details Date Type Department Care Team (Late st Contact Info) Description 06/04/2005 Outpatient Historical [facility] Medicine [id number] [place] [address] Gadiel Christensen MD [address] [place] [phone] Social History Tobacco Use Types Packs/Day Years Used Date Smoking Tobacco: Never Assessed Comments Unknown Sex and Gender Information Value Date Recorded Sex Assigned at Not on file Legal Sex Female 5:01 AM VENETIAN BLIND CLEANER Gender Identity Not on file Sexual Orientation Not on file documented as of this encounter Plan of Treatment Upcoming Encounters Date Type Department Care Team (Late st Contact Info) Description 07/04/2024 11:15 AM CDT Office Visit [facility] At [facility] [address] [place] [address] Esteban Dueñas MD [facility] [address] [facility] [address] [place] [address] documented as of this encounter Visit Diagnoses Not on filedocumented in this encounter Care Teams Pheresis Specialist Relationship Specialty Start Date End Date Vitaly Manzanares MD [address] [place] [id number] PCP - General Family Practice 05/19/22 documented as of this encounter
--- OUTSIDE RECORDS SUMMARY | 2024-06-21 10:59 | XMS_ITS | Encounter Summary ---
Author Organization [facility] Address [address] [place] [address] Care Team Providers Care Rope Rider Name Role Phone Vitaly Manzanares MD Primary Care Provider Encounter Details Date Type Department Care Team (Late st Contact Info) Description 05/27/2001 Outpatient Historical [facility] Internal Medicine [address] [place] [address] Gadiel Christensen MD [address] [place] [phone] Social History Tobacco Use Types Packs/Day Years Used Date Smoking Tobacco: Never Assessed Comments Unknown Sex and Gender Information Value Date Recorded Sex Assigned at Not on file Legal Sex Female 5: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 Gender Identity Not on file Sexual Orientation Not on file documented as of this encounter Plan of Treatment Upcoming Encounters Date Type Department Care Team (Late st Contact Info) Description 07/04/2024 11:15 AM CDT Office Visit [facility] Heart and Vascular At [facility] [address] [place] [address] Esteban Dueñas MD [facility] [address] [facility] [address] [place] [address] documented as of this encounter Visit Diagnoses Not on filedocumented in this encounter Care Teams Rope Rider Relationship Specialty Start Date End Date Vitaly Manzanares MD [address] [place] [phone] PCP - General Family Practice 05/19/22 documented as of this encounter
--- OUTSIDE RECORDS SUMMARY | 2024-06-21 10:59 | XMS_ITS | Encounter Summary ---
Author Organization [facility] Address 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 Gender Identity Not on file Sexual Orientation Not on file documented as of this encounter Plan of Treatment Upcoming Encounters Date Type Department Care Team (Late Contact Info) Description 07/04/2024 11:15 AM CDT Office Visit [facility] At [address] [place] [address] Esteban Dueñas MD [address] [place] [address] [place] [address] documented as of this encounter Visit Diagnoses Diagnosis Other screening mammogram- Primary documented in this encounter Care Teams Lens Generating Machine Tender Relationship Specialty Start Date End Date Vitaly Manzanares MD [address] [place] [address] PCP - General Family Practice 05/19/22 documented as of this encounter
--- OUTSIDE RECORDS SUMMARY | 2024-06-21 10:59 | XMS_ITS | Encounter Summary ---
Author Organization [facility] Address [address] [place] [address] Care Team Providers Care Elementary [employer] Music Teacher Name Role Phone Vitaly Manzanares MD Primary Care Provider [phone] Encounter Details Date Type Department Care Team (Late st Contact Info) Description 06/22/2005 Outpatient Historical [facility] Internal Medicine [id number] [place] [address] Gadiel Christensen MD [address] [place] [phone] Social History Tobacco Use Types Packs/Day Years Used Date Smoking Tobacco: Never Assessed Comments Unknown Sex and Gender Information Value Date Recorded Sex Assigned at Not on file Legal Sex Female 5:01 AM VP Gender Identity Not on file Sexual Orientation Not on file documented as of this encounter Plan of Treatment Upcoming Encounters Date Type Department Care Team (Late st Contact Info) Description 07/04/2024 11:15 AM CDT Office Visit [facility] Heart and V[facility] At [facility] [address] [facility] [address] [place] [address] Esteban Dueñas MD [facility] [address] [facility] [address] [place] [address] documented as of this encounter Visit Diagnoses Not on filedocumented in this encounter Care Teams Elementary [employer] Music Teacher Relationship Specialty Start Date End Date Vitaly Manzanares MD [address] [place] [phone] PCP - General Family Practice 05/19/22 documented as of this encounter
--- OUTSIDE RECORDS SUMMARY | 2024-06-21 10:59 | XMS_ITS | Clinical Summary ---
Author Organization [facility] Address [address] [place] [address] Care Team Providers Care Director Of Diagnostic Imaging Name Role Phone Vitaly Manzanares MD Primary Care Provider [phone] Allergies Active Allergy Reactions Criticality Noted Date Comments Adhesive Other (See Comments) 11/13/2016 blister Amlodipine Rash Low 05/15/2010 Aspirin Unknown 12/17/2023 Cephalexin Rash Low 04/22/2007 Chlorzoxazone Unknown 04/22/2007 Codeine Rash,Nausea and Vomiting Low 04/22/2007 Cyclobenzaprine Rash Low 11/27/2013 Doxycycline Calcium Unknown 04/22/2007 Influenza Virus Vaccines Anaphylaxis,Swelling High 0 04/22/2007 Iodinated Contrast Media Anaphylaxis,Unknown High Melon Shortness of Breath/Wheezing,Rash High 02/24/2016 Naratriptan Rash Low 04/22/2007 Bbwwyjgkkqxa-Ewg-Bzodpmyg Unknown 04/22/2007 Oseltamivir Phosphate Rash Low 04/22/2007 Penicillins Unknown 04/22/2007 As a child Pneumococcal Vaccine Anaphylaxis,Rash High 1 Prochlorperazine Edisylate Unknown 8 Propoxyphene Rash Low 04/22/2007 [place] Anaphylaxis,Shortnes s of Breath/Wheezing High 02/24/2016 Sulfa (Sulfonamide Antibiotics) Rash,Nausea and Vomiting Low 04/22/2007 Tetanus Vaccines And Toxoid Rash,Nausea and Vomiting Low 04/22/2007 Tetracycline Unknown 04/22/2007 As a child Tolterodine Rash Low 07/28/2013 Vaccine And Toxoid Preparations,Combinations Unknown 04/22/2007 Medications diphenhydrAMINE (BENADRYL) 25 mg tablet Take 50 mg by mouth every 6 hours as needed. Active promethazine (PHENERGAN) 25 mg tablet Take 1 Tablet (25 mg) by mouth every 6 hours as needed for Nausea. 100 Tablet 2 016 Active benzonatate (TESSALON) 200 mg capsule Take 200 mg by mouth 3 times daily. Not taking Active fluticasone (FLONASE) 50 mcg/spray [place], Suspension USE TWO SPRAYS IN EACH NOSTRIL ONCE DAILY. 48 Gram 3 018 Active Additional Information Patient taking differently: USE TWO SPRAYS IN EACH NOSTRIL ONCE DAILYPRN, Reported on 04/03/2024 albuterol HFA 90 mcg inhaler Take 2 Puffs by inhalation every 4 hours as needed for Wheezing. 8.5 Gram 3 018 Active acetaminophen-caf feine-butalbital (FIORICET) 325-40-50 mg tabletIndications :Migraine with aura and without status migrainosus, not intractable Take 1 Tablet by mouth every 4 hours as needed for Headaches. 100 Tablet 019 Active EPINEPHrine (EPIPEN) 0.3 mg/0.3 mL Auto-InjectorIndi cations:Aspirin allergy Inject 0.3 mL (0.3 mg) by intramuscular injection 1 time daily as needed for Anaphylaxis. 1 Package 019 Active HYDROcodone-aceta minophen (NORCO) 5-325 mg tabletIndications :Migraine with aura and without status migrainosus, not intractable,Histo ry of uterine cancer Take 1 Tablet by mouth every 6 hours as needed for Pain, Moderate. Max Daily Amount: 4 Tablets 20 Tablet 021 Active calcium-cholecalc iferol 500 mg(1,250mg) -400 unit tablet Take 1 Tablet by mouth daily. Active acetaminophen (TYLENOL) 500 mg tablet Take 500 mg by mouth every 6 hours as needed. Not taking Active pantoprazole (PROTONIX) 40 mg Tablet, Delayed Release (E.C.) Take 40 mg by mouth 2 times daily. 023 Active IBUPROFEN ORAL Take by mouth. PRN Active carvediloL (COREG) 6.25 mg tablet take 1 tablet by mouth twice a day with food 180 Tablet 3 024 Active alendronate (FOSAMAX) 70 mg tablet Take 1 Tablet by mouth every 7 days. 024 Active coenzyme Q10 (Co Q-10) 200 mg CapsuleIndication s:Coronary artery disease involving [place] heart with unstable angina pectoris, unspecified vessel or lesion type (CMS/HCC) Take 1 Capsule (200 mg) by mouth daily. 100 Capsule 3 024 Active isosorbide mononitrate (IMDUR) 120 mg Extended Release 24 hour tablet TAKE 1 TABLET (120 MG) BY MOUTH DAILY IN THE MORNING. 90 Tablet 3 024 Active ranolazine ER (RANEXA) 500 mg Extended Release 12 hour tablet TAKE 1 TABLET BY MOUTH EVERY 12 HOURS 180 Tablet 3 024 Active predniSONE (DELTASONE) 50 mg tablet Take 1 Tablet (50 mg) by mouth see administration instructions. Take 1 (50 mg) by mouth the day before procedure. Take 1 Tablet (50 mg) by mouth the morning of procedure. 2 Tablet 024 Active nitroglycerin (NITROSTAT) 0.4 mg Tablet, Sublingual Dissolve 1 tab under tongue, every 5 min, as needed for chest pain, for a total of 3 tabs. If pain persists, call 911. 25 Tablet 1 025 Active lisinopriL (PRINIVIL) 2.5 mg tabletIndications :Essential hypertension TAKE 1 TABLET BY MOUTH EVERY DAY 90 Tablet 3 025 Active cilostazoL (PLETAL) 100 mg Tablet TAKE 1 TABLET (100 MG) BY MOUTH 2 TIMES DAILY BEFORE MEALS. 180 Tablet 3 025 Active atorvastatin (LIPITOR) 40 mg tabletIndications :Mixed hyperlipidemia TAKE 1 TABLET BY MOUTH EVERYDAY AT BEDTIME 90 Tablet 3 025 Active clopidogreL (PLAVIX) 75 mg Tablet TAKE 1 TABLET BY MOUTH EVERY DAY 90 Tablet 1 025 Active clopidogreL (PLAVIX) 75 mg Tablet Take 1 Tablet (75 mg) by mouth daily. 90 Tablet 3 024 2024 Discontinued Active Problems Patient Care Coordination No te Formatting of this note migh t be different from the original. [facility] Full Review 02/25/16 tn Esteban Dueñas MD--Cemetery Warden ([facility] @ ) Problem Noted Date Diagnosed Date Age-related osteoporosis, T -3.7 R fem neck Barry h 202006/30/2020 Allergy to influenza vaccine 02/20/2020 Allergy to Streptococcus pneumoniae vaccine 10/2019 Chronic fatigue 02/12/2020 Left ventricular systolic dysfunction, NYHA clas s 2 01/11/2017 S/P coronary artery stents p lacement, 02/26/16, 11/13/16, 05/19/22, 01/05, 02/23/24 12/07/2016 Coronary artery disease of n ative artery of [place] heart with stable angina pectoris 06/09/2016 Aspirin allergy 06/09/2016 Allergy to IVP dye 06/09/2016 Pure hypercholesterolemia 06/09/2016 Atherosclerosis of coronary artery 02/29/2016 Overview (03/04/2016): 02/27 - presented with chest pain and dyspnea. Noted to be in heart failure. Cath - CAD medically managed/ bare metal stent. Will do dual antiplatelet therapy (aspirin allergy). Shortness of breath 02/24/2016 Mild intermittent asthma without complication Essential hypertension 12/24/2014 Atherosclerosis of aorta 12/15/2011 Overview (12/15/2011): 9/[address] abdomen Diverticulosis 12/15/2011 Overview (12/15/2011): 9/[address] abdomen for LLQ pain. Kidney stone 12/15/2011 Overview (12/15/2011): 9/[address] abd done for LLQ pain, without hydronephrosis Chronic cough 06/25/2010 Migraine 04/22/2007 Stress incontinence 04/22/2007 History of uterine cancer 04/22/2007 Overview (12/15/2011): History of, 1988. MITALI, BSO, RT and radium implants 09/23 PET done- unchanged Chest pain, atypical Chronic systolic congestive heart failure Resolved Problems Problem Noted Date Diagnosed Date Resolved Date Aspirin allergy 02/01/2018 09/14/2018 S/P coronary artery stents p lacement, 02/26/16 06/09/2016 12/07/2016 Chest tightness 02/24/2016 02/29/2016 CHF (congestive heart failure) 02/24/2016 09/14/2018 Essential hypertension 12/24/201412/24 Tremor 09/02/2011 07/07/2013 Pain in joint, shoulder region 05/27/2011 12/15/2011 Asthma 05/06/2009 12/24/2014 Esophageal reflux 12/25/2007 07/07/2013 Overview (12/25/2007): EGD - 12/20 Hypertension 04/22/2007 12/24/2014 Lumbar disc disease 04/22/2007 07/08/19 14 Acute systolic congestive heart failure 02/29/2016 Encounters Date Type Department Care Team Description 05/28/2024 Refill [facility] At [address] [place] [address] Esteban Dueñas MD 04/29/2024 Refill [facility] Heart and Vascular At [address] [place] [address] Esteban Dueñas MD Mixed hyperlipidemia 04/22/2024 Refill [facility] [address] [address] [place] [address] Esteban Dueñas MD 04/11/2024 External Device Data STL ABSTRACTION Provider, Abstract 04/05/2024 External Device Data STL ABSTRACTION Provider, Abstract 04/05/2024 External Device Data STL ABSTRACTION Provider, Abstract 04/05/2024 Telephone [facility] Heart and Vascular - [facility] [address] [place] [address] Esteban Dueñas MD Release to return to Cardiac rehab 04/03/2024 11:00 AM EQUIPMENT MAINTENANCE TECH Video Visit [facility] Heart [facility] Vascular At [address] [place] [address] Esteban Dueñas MD Coronary artery disease of [place] artery of [place] heart with stable angina pectoris (Primary Dx); Left ventricular systolic dysfunction, NYHA class 2; Pure hypercholesterolemia; Essential hypertension; S/P coronary artery stents placement, 02/26/16, 11/13/16, 05/19/22, 01/05, 02/23/24; Allergic reaction to dye, subsequent encounter 04/01/2024 Refill [facility] Heart and Vascular At [address] [place] [address] Esteban Dueñas MD Essential hypertension (Primary Dx) 03/28/2024 Refill [facility] Heart and Vascular At [address] [place] [address] Esteban Dueñas MD from Last 3 Months Immunizations Immunization Administration Dates Next Due (PNEUMOVAX 23)(50 YRS UP) PN EUMOCOCCAL POLYSACCHARIDE (PPV23) 0.5 ML, IM 01/10/2010 Family History Medical History Relation Name Comments High Cholesterol Brother Hypertension Brother Heart Disease Father Hypertension Father Heart Disease Mother Marci Nguyen CAD Hypertension Mother Marci Nguyen Other Mother Marci Nguyen urticaria Relation Name Status Comments Brother Alive Father Mother Marci Nguyen Alive Social History Tobacco Use Types Packs/Day Years Used Date Smoking Tobacco: Never Smokeless Tobacco: Never Tobacco Cessation:Counseling Given: Not Answered Alcohol Use Standard Drinks/Week Comments Yes 1.7 (1 standard drink = 0.6 oz p ure alcohol) Feeling Safe Answer Date Recorded Are you in a relationship wi th someone who hurts you emotionally and/or physically? No 02/23/2024 Food Insecurity Answer Date Recorded Social/Environmental Concerns No concerns Transportation Needs Answer Date Record ed Social/Environmental Concerns No concerns Housing Stability Answer Date Recorded Social/Environmental Concerns No concerns Utility Needs Answer Date Recorded Social/Environmental Concerns No concerns Comments No Sex and Gender Information Value Date Recorded Sex Assigned at Not on file Legal Sex Female 5:01 AM EQUIPMENT MAINTENANCE TECH Gender Identity Not on file Sexual Orientation Not on file Occupation Industry Job Start Date Job End Date Not on file Not on file Not on file Not on file Last Filed Vital Signs Vital Sign Reading Time Taken Comments Blood Pressure 125/78 04/03/2024 10:37 AM EQUIPMENT MAINTENANCE TECH Pulse 89 04/03/2024 10:37 AM EQUIPMENT MAINTENANCE TECH Temperature 36.6 C (97.9 F) 04/03/2024 10:37 AM EQUIPMENT MAINTENANCE TECH Respiratory Rate 18 02/23/2024 12:00 PM EQUIPMENT MAINTENANCE TECH Oxygen Saturation 98% 04/03/2024 10:37 AM EQUIPMENT MAINTENANCE TECH Inhaled Oxygen Concentration - - Weight 49.4 kg (109 lb) 04/03/2024 10:37 AM EQUIPMENT MAINTENANCE TECH Height 152.4 cm (5') 04/03/2024 10:37 AM EQUIPMENT MAINTENANCE TECH Body Mass Index 21.29 04/03/2024 10:37 AM EQUIPMENT MAINTENANCE TECH Plan of Treatment Upcoming Encounters Date Type Department Care Team (Late st Contact Info) Description 07/04/2024 11:15 AM CDT Office Visit [facility] V[facility] At [place] [address] [address] [place] [address] Esteban Dueñas MD [facility] [address] [facility] [address] [place] [address] Health Maintenance Due Date Last Done Comments DTAP/TDAP/TD VACCINES (1 - Tdap) 1968 COLORECTAL SCREENING 1994 FIT/FOBT Q 1 year 1994 Flex Sig/CT Colonography Q 5 years 1994 RSV VACCINE (60+ or ) (1 - Risk 60-74 years 1-dose series) 2009 Colorectal Cancer Screening 10/17/2021 FIT-DNA Q 3 years 10/17/2021 10/17/2018 BREAST CANCER SCREENING 10/15/2022 10/16/19, 10/15/2021, 07/25/2020, Additional history exists INFLUENZA VACCINE (#1) 2023 [place] Preventative Visit/Annual Wellness Visit 03/15/2024 02/20/2020, 11/29/2017, 12/24/2014, Additional history exists OSTEOPOROSIS SCREENING Completed 06/27/2020, 2020 Medical Devices Implanted Type Area Vulcanizing Press Operator Device Identifier Shelf Expiration Date Model / Serial / Lot Daniele- 016 Implanted:Qty : 1 on 02/26/2016 by Rony Deleon MD Stent Coronary [employer] 02/11/2017 / / [id number] Description:bare metal stent placed in the obtuse marginal coronary artery number 1 Daniele- 016 Implanted:Qty : 1 on 02/26/2016 by Rony Deleon MD Stent Coronary [employer] 05/12/2018 / / [id number] Description:bare metal stent placed in the right coronary artery Daniele- 016 Implanted:Qty : 1 on 02/26/2016 by Rony Deleon MD Stent Coronary [employer] 04/14/2017 / / [id number] Description:bare metal stent placed in the right coronary artery Promus Premier- 017 Implanted:03/2016 by Arslan Gale MD (Quantity not on file) Stent [employer] 09/28/2017 / / [id number] Description:OM1 Promus Premier- 017 Implanted:03/2016 by Arslan Gale MD (Quantity not on file) Stent [employer] 09/28/2017 / / [id number] Description:RCA Promus Premier- 017 Implanted:03/2016 by Arslan Gale MD (Quantity not on file) Stent [employer] 02/14/2018 / / [id number] Description:rca Stent Synergy Xd 3.0x12mm Evrlms Elut [id number] - [id number] Implanted:Qty : 1 on 05/19/2022 by Conor Grimm MD at [facility] Stent Right: Coronary [employer] 12/15/2023 [id number] / / [id number] Stent Dany Conway Temo 3.0x18mm Rx [id number] - [id number] Implanted:Qty : 1 on 12/17/2023 by Conor Grimm MD at [facility] Stent Right: Coronary [employer] [id number] 02/03/2026 [id number] / / [id number] Stent Lima Conway Temo 3.13r22te Rx [id number] - [id number] Implanted:Qty : 1 on 02/23/2024 by Conor Grimm MD at [facility] Stent N/A: Coronary [employer] [id number] 04/26/2026 [id number] / / [id number] Procedures Procedure Name Priority Date/Time Associated Diagnosis Comments MAMMO DIAGNOSTIC BILATERAL W OR WO CAD Routine 10/15/2021 Mass of right breast, unspecified quadrant Inverted nipple XR DEXA BONE DENSITY AXIAL 1 OR MORE SITES Routine 06/27/2020 Postmenopausal COLON CANCER SCREEN, STOOL DNA Routine 10/17/2018 12:16 PM CDT Screening for colon cancer from Last 3 Months or Most Recently Relevant to Health Maintenance Results * MAMMO DIAGNOSTIC BILATERAL W OR WO CAD (10/15/2021) Anatomical Region Laterality Modality Breast Bilateral Mammography 10/15/2021 us Esteban Casanova MD MAMMO ORDERABLES Edite d Result - Final * XR DEXA BONE DENSITY AXIAL 1 OR MORE SITES (06/27/2020) T-SCORE FEMUR [facility] T-SCORE FEMUR (LEFT) [facility] T-SCORE FEMUR (RIGHT) [facility] T-SCORE FEMUR NECK [facility] T-SCORE FEMORAL NECK (LEFT) [facility] T-SCORE FEMORAL NECK (RIGHT) [facility] T-SCORE HEEL [facility] T-SCORE HEEL (LEFT) [facility] T-SCORE HEEL (RIGHT) [facility] T-SCORE HIP [facility] T-SCORE HIP (LEFT) [facility] T-SCORE HIP (RIGHT) [facility] T-SCORE WRIST [facility] T-SCORE WRIST (LEFT) [facility] T-SCORE WRIST (RIGHT) [facility] T-SCORE SPINE [facility] Anatomical Region Laterality Modality Other us Esteban Casanova MD DIAGNOSTIC IMAGING ORD ERABLES Final Result * COLON CANCER SCREEN, STOOL DNA (10/17/2018 12:16 PM CDT) COLOGUARD RESULT Negative Not Applicable [facility] Comment: A negative result indicates a low likelihood that a colorectal cancer (CRC) or an advanced adenoma (adenomatous polyps with more advanced pre-malignant features) is present. The chance that a person with a negative Cologuard test has a colorectal cancer is less than 1 in 1500 (negative predictive value >99.9%) or has an advanced adenoma is less than 5.3% (negative predictive value 94.7%). These data are based on a prospective cross-sectional screening study of 10,000 individuals at average risk for colorectal cancer who were screened with both Cologuard and colonoscopy. (Jordan Ordaz et al, N Engl J Med 2014;370(14):3963-3334) COLOGUARD RE-SCREENING RECOMMENDATION: Periodic routine colorectal cancer screening is an important part of preventive healthcare for asymptomatic persons at average risk for colorectal cancer. Following a negative Cologuard result, the [place] Cancer Society and U.S. Multi-Society Task Force screening guidelines recommend a Cologuard re-screening interval of 3 years. References: [place] Cancer Society (ACS). Colorectal cancer prevention and early detection. [place], [place]: [place] Cancer Society; [updated 2015Jul 06]. https://www.cancer.org/cancer/kqzzo-ynzfch-nruszp/aurdrkxcb-wxynarsew-hojhxjm/ac s-rec ommendations.html. Accessed November 12, 2017; Brayden DK, Amanda CR, Jacquie HenryK, Colorectal Cancer Screening: Recommendations for Physicians and Patients from the U.S. Multi-Society Task Force on Colorectal Cancer Screening, Am J Gastroenterology 2017; 112:2652-3675. Test Type: Composite algorithmic analysis of stool DNA-biomarkers with hemoglobin immunoassay. Quantitative values of individual biomarkers are not reportable and are not associated with individual biomarker result reference ranges. Precautions and Limitations: Cologuard is intended for colorectal cancer screening of adults of either sex, 50 years or older, who are at typical average-risk for colorectal cancer. A negative Cologuard test result does not guarantee the absence of colorectal cancer or advanced adenoma (pre-cancer). Patients with a negative Cologuard test result should be advised to continue participating in a colorectal cancer screening program. Cologuard may produce a positive result, even though a colonoscopy may not find colorectal cancer or precancerous polyps. The performance of Cologuard has been established in a cross sectional study (i.e., single point in time). Performance has not been evaluated in adults who have been previously tested with Cologuard or in patients less than 50 years of age. Cologuard has been approved for use by the U.S. FDA. Cologuard performance data in a 10,000 patient pivotal study using colonoscopy as the reference method can be accessed at the following location: www.100e.com/results. Additional description of the Cologuard test process, warnings and precautions can be found at www.cologuardtest.com. Rx Only. Stool STOOL SPECIMEN / Unknown 10/17/2018 12:16 PM CDT 10/18/2018 7:16 PM CDT Esteban Casanova MD BODY FLUIDS AND STOOLS Final Result [employer] CLIA # [id number] [address], [address] [place] [address] from Last 3 Months or Most Recently Relevant to Health Maintenance Insurance RX AETNA Medicare Part D AETNA O [facility] Advance Directives For more information, please contact: [phone] Documents on File Type Date Recorded Patient Gyro Compass Tester Expl anation Advance Directive POA 08/31/2023 3:26 PM A dvance Directive POA Advance Directive POA 05/19/2022 5:45 AM Advance Directive Living Will 05/19/2022 5:44 AM Advance Directive Living Will * Full Code (Latest Code Status on File) Date Activated Date Inactivated Comments 02/23/2024 9:01 AM 02/23/2024 5:59 PM * Full Code Date Activated Date Inactivated Comments 09/10/2023 7:10 AM 09/10/2023 4:45 PM * Full Code Date Activated Date Inactivated Comments 05/19/2022 5:57 AM 05/20/2022 12:12 PM * Full Code Date Activated Date Inactivated Comments 11/13/2016 12:58 PM 11/14/2016 12:57 PM * Full Code Date Activated Date Inactivated Comments 11/13/2016 8:37 AM 11/13/2016 12:58 PM Care Teams Director Of Diagnostic Imaging Relationship Specialty Start Date End Date Vitaly Manzanares MD [address] [place] [address] PCP - General Family Practice 05/19/22
--- OUTSIDE RECORDS SUMMARY | 2024-06-21 10:59 | XMS_ITS | Encounter Summary ---
Author Organization [facility] Address 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 Gender Identity Not on file Sexual Orientation Not on file documented as of this encounter Plan of Treatment Upcoming Encounters Date Type Department Care Team (Late st Contact Info) Description 07/04/2024 11:15 AM CDT Office Visit [facility] Heart and Vascular At [place] [address] [address] [place] [address] Esteban Dueñas MD [address] [place] [address] [address] [place] [address] documented as of this encounter Visit Diagnoses Not on filedocumented in this encounter Care Teams Purification Director Relationship Specialty Start Date End Date Vitaly Manzanares MD [address] [place] [phone] PCP - General Family Practice 05/19/22 documented as of this encounter
--- OUTSIDE RECORDS SUMMARY | 2024-06-21 10:59 | XMS_ITS | Encounter Summary ---
Author Organization [facility] Address [address] [place] [address] Care Team Providers Care Lace Mender Name Role Phone Vitaly Manzanares MD Primary Care Provider [phone] Encounter Details Date Type Department Care Team (Late st Contact Info) Description 05/15/2002 Outpatient Historical [facility] [place] [address] [place] [address] Gadiel Christensen MD [address] [place] [phone] Social History Tobacco Use Types Packs/Day Years Used Date Smoking Tobacco: Never Assessed Comments Unknown Sex and Gender Information Value Date Recorded Sex Assigned at Not on file Legal Sex Female 5:01 AM RETARDER OPERATOR Gender Identity Not on file Sexual Orientation Not on file documented as of this encounter Plan of Treatment Upcoming Encounters Date Type Department Care Team (Late st Contact Info) Description 07/04/2024 11:15 AM CDT Office Visit [facility] Heart and Vascular At [facility] [address] [facility] [address] [place] [address] Esteban Dueñas MD [facility] [address] [facility] [address] [place] [address] documented as of this encounter Visit Diagnoses Not on filedocumented in this encounter Care Teams Lace Mender Relationship Specialty Start Date End Date Vitaly Manzanares MD [address] [place] [phone] PCP - General Family Practice 05/19/22 documented as of this encounter
--- OUTSIDE RECORDS SUMMARY | 2024-06-21 10:59 | XMS_ITS | Encounter Summary ---
Author Organization [facility] Address [address] [place] [address] Care Team Providers Care Clam Shucking Machine Tender Name Role Phone Vitaly Manzanares MD Primary Care Provider [phone] Encounter Details Date Type Department Care Team (Late st Contact Info) Description 03/09/2006 Outpatient Historical [facility] Gadiel Christensen MD [address] [place] [phone] Essential Hypertension, Benign (Primary Dx) Social History Tobacco Use Types Packs/Day Years Used Date Smoking Tobacco: Never Assessed Comments Unknown Sex and Gender Information Value Date Recorded Sex Assigned at Not on file Legal Sex Female 5:01 AM SOLE ROUNDING MACHINE OPERATOR Gender Identity Not on file Sexual Orientation Not on file documented as of this encounter Plan of Treatment Upcoming Encounters Date Type Department Care Team (Late Contact Info) Description 07/04/2024 11:15 AM CDT Office Visit [facility] Heart and Vascular At [address] [place] [address] Esteban Dueñas MD [address] [place] [address] [address] [place] [address] documented as of this encounter Procedures Procedure Name Priority Date/Time Associated Diagnosis Comments TSH REFLEXIVE Routine 03/09/2006 9:00 AM SOLE ROUNDING MACHINE OPERATOR CBC WITH DIFFERENTIAL Routine 03/09/2006 9:00 AM SOLE ROUNDING MACHINE OPERATOR CBC WITH DIFFERENTIAL Routine 03/09/2006 9:00 AM SOLE ROUNDING MACHINE OPERATOR CANCER ANTIGEN 125 Routine 03/09/2006 9: 00 AM SOLE ROUNDING MACHINE OPERATOR MAGNESIUM LEVEL Routine 03/09/2006 9:00 AM SOLE ROUNDING MACHINE OPERATOR LIPID PANEL Routine 03/09/2006 9:00 AM SOLE ROUNDING MACHINE OPERATOR COMPREHENSIVE METABOLIC PANEL Routine 03/09/2006 9:00 AM SOLE ROUNDING MACHINE OPERATOR documented in this encounter Results * CBC WITH DIFFERENTIAL (03/09/2006 9:00 AM SOLE ROUNDING MACHINE OPERATOR) NEUTROPHILS 54 45 - 70 % INTERFAC E SYSTEM LYMPHOCYTES 35 16 - 45 % INTERFAC E SYSTEM MONOCYTES 5 3 - 13 % INTERFACE SYSTEM EOSINOPHILS 6 0 - 7 % INTERFAC E SYSTEM BASOPHILS 1 0 - 2 % INTERFACE SYSTEM NEUTROPHIL ABSOLUTE 2.89 1.90 - 7.00 K/uL INTERFACE SYSTEM LYMPHOCYTE ABSOLUTE 1.88 0.70 - 4.50 K/uL INTERFACE SYSTEM MONOCYTE ABSOLUTE 0.26 0.10 - 1.30 K/uL INTERFACE SYSTEM EOSINOPHIL ABSOLUTE 0.30 0.00 - 0.70 K/uL INTERFACE SYSTEM BASOPHILS ABSOLUTE 0.04 0.00 - 0.20 K/uL INTERFACE SYSTEM 03/09/2006 9:00 AM SOLE ROUNDING MACHINE OPERATOR Gadiel Christensen MD HEMATOLOGY ORDERABLES Final Re sult INTERFACE SYSTEM Refer to clinic/hospital department * (ABNORMAL) CBC WITH DIFFERENTIAL (03/09/2006 9:00 AM SOLE ROUNDING MACHINE OPERATOR) WBC 5.4 4.0 - 9.8 K/uL INTERFACE SYSTEM RBC 4.98(H) 3.90 - 4.90 M/uL INTERFACE SYSTEM HEMOGLOBIN 15.1(H) 11.8 - 14.8 g/dL INTERFACE SYSTEM HEMATOCRIT 44.9(H) 35.5 - 44.0 % INTERFACE SYSTEM MCV 90.2 82.0 - 99.0 fL INTERFACE SYSTEM MCH 30.3 27.2 - 32.6 pg INTERFACE SYSTEM MCHC 33.6 31.5 - 35.5 % INTERFACE SYSTEM RDW 13.6 11.5 - 14.5 % INTERFACE SYSTEM RDW-STDEV 44.7 37.1 - 48.7 fL INTERFACE SYSTEM PLATELETS 271 140 - 350 K/uL INTERFACE SYSTEM MPV 11.3 9.3 - 12.4 fL INTERFACE SYSTEM 03/09/2006 9:00 AM SOLE ROUNDING MACHINE OPERATOR Gadiel Christensen MD HEMATOLOGY ORDERABLES Final Re sult Performing Organization Address [facility] Phone Number INTERFACE SYSTEM Refer to clinic/hospital department * TSH REFLEXIVE (03/09/2006 9:00 AM SOLE ROUNDING MACHINE OPERATOR) TSH 1.82 0.27 - 4.20 uU/mL INTERFACE SYSTEM 03/09/2006 9:00 AM SOLE ROUNDING MACHINE OPERATOR Gadiel Christensen MD CHEMISTRY ORDERABLES Final Res ult Performing Organization Address [facility] Phone Number INTERFACE SYSTEM Refer to clinic/hospital department * MAGNESIUM LEVEL (03/09/2006 9:00 AM SOLE ROUNDING MACHINE OPERATOR) MAGNESIUM 1.8 1.5 - 2.5 mg/dL INTERFACE SYSTEM 03/09/2006 9:00 AM SOLE ROUNDING MACHINE OPERATOR Gadiel Christensen MD CHEMISTRY ORDERABLES Final Res ult Performing Organization Address [facility] Phone Number INTERFACE SYSTEM Refer to clinic/hospital department * CANCER ANTIGEN 125 (03/09/2006 9:00 AM SOLE ROUNDING MACHINE OPERATOR) CA 125 8 <=34 U/mL INTERFACE SYSTEM Comment: Reference Range: CA-125 </= 34 U/mL (Females) Because the concentration of CA-125 in any given specimen can vary due to differences in assay methods and reagent specificity, values from different assay methods cannot be used interchangeably. Serum CA-125 levels, regardless of value, should not be interpreted as absolute evidence of the presence or absence of disease. CA-125 is not intended for use as a cancer screening test. 03/09/2006 9:00 AM SOLE ROUNDING MACHINE OPERATOR Gadiel Christensen MD CHEMISTRY ORDERABLES Final Res ult Performing Organization Address [facility] Co de Phone Number INTERFACE SYSTEM Refer to clinic/hospital department * (ABNORMAL) LIPID PANEL (03/09/2006 9:00 AM SOLE ROUNDING MACHINE OPERATOR) CHOLESTEROL 223(H) 100 - 199 mg/dL INTERFACE SYSTEM TRIGLYCERIDE 130 10 - 149 mg/dL INTERFACE SYSTEM HDL 83(H) 40 - 59 mg/dL INTERFACE SYSTEM CHOL/HDL RATIO 2.7 2.0 - 5.0 INTER FACE SYSTEM LDL CALCULATED 114(H) <=99 mg/dL INTERFACE SYSTEM LIPID PANEL COMMENT See Below INTERFACE SYSTEM Comment: The adult ATP and pediatric NCEP classifications for lipids are available on the [facility] Intranet at: [email or web address] Select: Lab Policies and Procedures Select: Reference Ranges - Lipids 03/09/2006 9:00 AM SOLE ROUNDING MACHINE OPERATOR Gadiel Christensen MD CHEMISTRY ORDERABLES Final Res ult Performing Organization Address [facility] Co de Phone Number INTERFACE SYSTEM Refer to clinic/hospital department * COMPREHENSIVE METABOLIC PANEL (03/09/2006 9:00 AM SOLE ROUNDING MACHINE OPERATOR) GLUCOSE 93 65 - 99 mg/dL INTERFACE SYSTEM CREATININE 0.61 0.51 - 0.95 mg/dL INTERFACE SYSTEM CALCIUM 9.0 8.4 - 10.2 mg/dL INTERFACE SYSTEM ALKALINE PHOSPHATASE 102 35 - 104 U/L INTERFACE SYSTEM AST 22 12 - 32 U/L INTERFACE SYSTEM ALT 19 0 - 31 U/L INTERFACE SYSTEM TOTAL PROTEIN 7.2 6.3 - 8.6 g/dL INTERFACE SYSTEM ALBUMIN 4.5 3.4 - 4.8 g/dL INTERFACE SYSTEM BILIRUBIN TOTAL 0.7 0.2 - 1.0 mg/dL INTERFACE SYSTEM BUN 11 6 - 20 mg/dL INTERFACE SYSTEM SODIUM 139 135 - 145 mmol/L INTERFACE SYSTEM POTASSIUM 4.0 3.5 - 4.9 mmol/L INTERFACE SYSTEM CHLORIDE 103 96 - 108 mmol/L INTERFACE SYSTEM CO2 25 22 - 30 mmol/L INTERFACE SYSTEM GFR, >60 >=60 mL/min/1.7 sq meter INTERFACE SYSTEM GFR >60 >=60 mL/min/1.7 sq meter INTERFACE SYSTEM Comment: Estimated GFR rate interpretative information for both Americans and non- Americans is available on the [facility] Intranet at: [email or web address] Select: Lab Policies and Procedures Select: Reference Ranges - GFR 03/09/2006 9:00 AM SOLE ROUNDING MACHINE OPERATOR us Gadiel Christensen MD CHEMISTRY ORDERABLES Final Res ult INTERFACE SYSTEM Refer to clinic/hospital department documented in this encounter Visit Diagnoses Diagnosis Essential hypertension, benign- Primary documented in this encounter Care Teams Clam Shucking Machine Tender Relationship Specialty Start Date End Date Vitaly Manzanares MD [address] [place] [address] PCP - General Family Practice 05/19/22 documented as of this encounter
--- OUTSIDE RECORDS SUMMARY | 2024-06-21 10:59 | XMS_ITS | Encounter Summary ---
Author Organization [facility] Address [address] [place] [address] Care Team Providers Care Outside Energy Sales Representatives Name Role Phone Vitaly Manzanares MD Primary Care Provider [phone] Encounter Details Date Type Department Care Team (Late st Contact Info) Description 02/13/2005 Outpatient Historical [facility] Internal Medicine [address] [place] [address] Gadiel Christensen MD [address] [place] [phone] Social History Tobacco Use Types Packs/Day Years Used Date Smoking Tobacco: Never Assessed Comments Unknown Sex and Gender Information Value Date Recorded Sex Assigned at Not on file Legal Sex Female 5:01 AM TRAIN OPERATIONS MANAGER Gender Identity Not on file Sexual Orientation Not on file documented as of this encounter Plan of Treatment Upcoming Encounters Date Type Department Care Team (Late st Contact Info) Description 07/04/2024 11:15 AM CDT Office Visit [facility] Heart and Vascular At [facility] [address] [facility] [address] [place] [address] Esteban Dueñas MD [facility] [address] [facility] [address] [place] [address] documented as of this encounter Visit Diagnoses Not on filedocumented in this encounter Care Teams Outside Energy Sales Representatives Relationship Specialty Start Date End Date Vitaly Manzanares MD [address] [place] [phone] PCP - General Family Practice 05/19/22 documented as of this encounter
--- OUTSIDE RECORDS SUMMARY | 2024-06-21 10:59 | XMS_ITS | Encounter Summary ---
Author Organization [facility] Address [address] [place] [address] Care Team Providers Care Track Machine Operator Repairer Name Role Phone Vitaly Manzanares MD Primary Care Provider [phone] Encounter Details Date Type Department Care Team (Late st Contact Info) Description 10/19/2002 Outpatient Historical [facility] Internal Medicine [id number] [place] [address] Gadiel Christensen MD [address] [place] [phone] Social History Tobacco Use Types Packs/Day Years Used Date Smoking Tobacco: Never Assessed Comments Unknown Sex and Gender Information Value Date Recorded Sex Assigned at Not on file Legal Sex Female 5:01 AM DIESEL PLANT OPERATOR Gender Identity Not on file Sexual Orientation Not on file documented as of this encounter Plan of Treatment Upcoming Encounters Date Type Department Care Team (Late st Contact Info) Description 07/04/2024 11:15 AM CDT Office Visit [facility] Heart and Vascular At [facility] [address] [facility] [address] [place] [address] Esteban Dueñas MD [facility] [address] [facility] [address] [place] [address] documented as of this encounter Visit Diagnoses Not on filedocumented in this encounter Care Teams Track Machine Operator Repairer Relationship Specialty Start Date End Date Vitaly Manzanares MD [address] [place] [address] PCP - General Family Practice 05/19/22 documented as of this encounter
--- OUTSIDE RECORDS SUMMARY | 2024-06-21 10:59 | XMS_ITS | Encounter Summary ---
Author Organization [facility] Address [address] [place] [address] Care Team Providers Care Joy Operator Name Role Phone Vitaly Manzanares MD Primary Care Provider Encounter Details Date Type Department Care Team (Late st Contact Info) Description 08/19/2005 Outpatient Historical [facility] Internal Medicine [id number] [place] [address] Gadiel Christensen MD [address] [place] [phone] Social History Tobacco Use Types Packs/Day Years Used Date Smoking Tobacco: Never Assessed Comments Unknown Sex and Gender Information Value Date Recorded Sex Assigned at Not on file Legal Sex Female 5:01 AM WARPING MILL OPERATOR Gender Identity Not on file Sexual Orientation Not on file documented as of this encounter Plan of Treatment Upcoming Encounters Date Type Department Care Team (Late st Contact Info) Description 07/04/2024 11:15 AM CDT Office Visit [facility] Heart and Vascular At [facility] [address] [facility] [address] [place] [address] Esteban Dueñas MD [facility] [address] [facility] [address] [place] [address] documented as of this encounter Visit Diagnoses Not on filedocumented in this encounter Care Teams Joy Operator Relationship Specialty Start Date End Date Vitaly Manzanares MD [address] [place] [address] PCP - General Family Practice 05/19/22 documented as of this encounter
--- OUTSIDE RECORDS SUMMARY | 2024-06-21 10:59 | XMS_ITS | Encounter Summary ---
Author Organization [facility] Address [address] [place] [address] Care Team Providers Care Structural Analysis Engineer Name Role Phone Vitaly Manzanares MD Primary Care Provider Encounter Details Date Type Department Care Team (Late st Contact Info) Description 01/26/2006 Outpatient Historical [facility] Internal Medicine [address] [place] [address] Gadiel Christensen MD [address] [place] [phone] Social History Tobacco Use Types Packs/Day Years Used Date Smoking Tobacco: Never Assessed Comments Unknown Sex and Gender Information Value Date Recorded Sex Assigned at Not on file Legal Sex Female 5:01 AM HUMAN SERVICES INSTRUCTOR Gender Identity Not on file Sexual Orientation Not on file documented as of this encounter Plan of Treatment Upcoming Encounters Date Type Department Care Team (Late st Contact Info) Description 07/04/2024 11:15 AM CDT Office Visit [facility] Heart and Vascular At [facility] [address] [facility] [address] [place] [address] Esteban Dueñas MD [facility] [address] [facility] [address] [place] [address] documented as of this encounter Visit Diagnoses Not on filedocumented in this encounter Care Teams Structural Analysis Engineer Relationship Specialty Start Date End Date Vitaly Manzanares MD [address] [place] [address] PCP - General Family Practice 05/19/22 documented as of this encounter
--- OUTSIDE RECORDS SUMMARY | 2024-06-21 10:59 | XMS_ITS | Encounter Summary ---
Author Organization [facility] Address [address] [place] [address] Care Team Providers Care Spa Experience Coordinator Name Role Phone Vitaly Manzanares MD Primary Care Provider Encounter Details Date Type Department Care Team (Late st Contact Info) Description 08/29/2003 Outpatient Historical [facility] Internal Medicine [address] [place] [address] Gadiel Christensen MD [address] [place] [phone] Social History Tobacco Use Types Packs/Day Years Used Date Smoking Tobacco: Never Assessed Comments Unknown Sex and Gender Information Value Date Recorded Sex Assigned at Not on file Legal Sex Female 5:01 AM DRY CAN TENDER Gender Identity Not on file Sexual Orientation Not on file documented as of this encounter Plan of Treatment Upcoming Encounters Date Type Department Care Team (Late st Contact Info) Description 07/04/2024 11:15 AM CDT Office Visit [facility] Heart and Vascular At [facility] [address] [facility] [address] [place] [address] Esteban Dueñas MD [facility] [address] [facility] [address] [place] [address] documented as of this encounter Visit Diagnoses Not on filedocumented in this encounter Care Teams Spa Experience Coordinator Relationship Specialty Start Date End Date Vitaly Manzanares MD [address] [place] [address] PCP - General Family Practice 05/19/22 documented as of this encounter
--- OUTSIDE RECORDS SUMMARY | 2024-06-21 10:59 | XMS_ITS | Encounter Summary ---
Author Organization [facility] Address [address] [place] [address] Care Team Providers Care Stave Block Splitter Name Role Phone Vitaly Manzanares MD Primary Care Provider [phone] Encounter Details Date Type Department Care Team (Late st Contact Info) Description 05/06/2004 Outpatient Historical [facility] Gadiel Andrade MD [address] [place] [phone] ABNORMAL FINDING-SKULL & HEAD (Primary Dx) Social History Tobacco Use Types Packs/Day Years Used Date Smoking Tobacco: Never Assessed Comments Unknown Sex and Gender Information Value Date Recorded Sex Assigned at Not on file Legal Sex Female 5:01 AM CONSTRUCTION SITE CROSSING GUARD Gender Identity Not on file Sexual Orientation Not on file documented as of this encounter Plan of Treatment Upcoming Encounters Date Type Department Care Team (Late Contact Info) Description 07/04/2024 11:15 AM CDT Office Visit [facility] Heart and Vascular At [address] [place] [address] Esteban Dueñas MD [address] [place] [address] [address] [place] [address] documented as of this encounter Visit Diagnoses Diagnosis Nonspecific (abnormal) findings on radiological and other examination of skull and head- Primary documented in this encounter Care Teams Stave Block Splitter Relationship Specialty Start Date End Date Vitaly Manzanares MD [address] [place] [address] PCP - General Family Practice 05/19/22 documented as of this encounter
--- OUTSIDE RECORDS SUMMARY | 2024-06-21 10:59 | XMS_ITS | Encounter Summary ---
Author Organization [facility] Address [address] [place] [address] Care Team Providers Care Spooler Operator Automatic Name Role Phone Vitaly Manzanares MD Primary Care Provider Encounter Details Date Type Department Care Team (Late st Contact Info) Description 06/09/2002 Outpatient Historical [facility] Internal Medicine [id number] [place] [address] Gadiel Christensen MD [address] [place] [phone] Social History Tobacco Use Types Packs/Day Years Used Date Smoking Tobacco: Never Assessed Comments Unknown Sex and Gender Information Value Date Recorded Sex Assigned at Not on file Legal Sex Female 5:01 AM BEADER Gender Identity Not on file Sexual Orientation Not on file documented as of this encounter Plan of Treatment Upcoming Encounters Date Type Department Care Team (Late st Contact Info) Description 07/04/2024 11:15 AM CDT Office Visit [facility] Heart and Vascular At [facility] [address] [facility] [address] [place] [address] Esteban Dueñas MD [facility] [address] [facility] [address] [place] [address] documented as of this encounter Visit Diagnoses Not on filedocumented in this encounter Care Teams Spooler Operator Automatic Relationship Specialty Start Date End Date Vitaly Manzanares MD [address] [place] [address] PCP - General Family Practice 05/19/22 documented as of this encounter
--- OUTSIDE RECORDS SUMMARY | 2024-06-21 10:59 | XMS_ITS | Encounter Summary ---
Author Organization [facility] Address [address] [place] [address] Care Team Providers Care Supervisor Concrete Stone Finishing Name Role Phone Vitaly Manzanares MD Primary Care Provider Encounter Details Date Type Department Care Team (Late st Contact Info) Description 10/30/2003 Outpatient Historical [facility] Internal Medicine [id number] [place] [address] Gadiel Christensen MD [address] [place] [phone] Social History Tobacco Use Types Packs/Day Years Used Date Smoking Tobacco: Never Assessed Comments Unknown Sex and Gender Information Value Date Recorded Sex Assigned at Not on file Legal Sex Female 5:01 AM SWEATBAND DRUMMER Gender Identity Not on file Sexual Orientation Not on file documented as of this encounter Plan of Treatment Upcoming Encounters Date Type Department Care Team (Late st Contact Info) Description 07/04/2024 11:15 AM CDT Office Visit [facility] Heart and Vascular At [facility] [address] [facility] [address] [place] [address] Esteban Dueñas MD [facility] [address] [facility] [address] [place] [address] documented as of this encounter Visit Diagnoses Not on filedocumented in this encounter Care Teams Supervisor Concrete Stone Finishing Relationship Specialty Start Date End Date Vitaly Manzanares MD [address] [place] [address] PCP - General Family Practice 05/19/22 documented as of this encounter
--- OUTSIDE RECORDS SUMMARY | 2024-06-21 10:59 | XMS_ITS | Encounter Summary ---
Author Organization [facility] Address [address] [place] [address] Care Team Providers Care Maintenance Apprentice Name Role Phone Vitaly Manzanares MD Primary Care Provider Encounter Details Date Type Department Care Team (Late st Contact Info) Description 06/28/2006 Outpatient Historical [facility] Internal Medicine [address] [place] [address] Gadiel Christensen MD [address] [place] [phone] Social History Tobacco Use Types Packs/Day Years Used Date Smoking Tobacco: Never Assessed Comments Unknown Sex and Gender Information Value Date Recorded Sex Assigned at Not on file Legal Sex Female 5: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 SOLO TRUCK DRIVER Gender Identity Not on file Sexual Orientation Not on file documented as of this encounter Plan of Treatment Upcoming Encounters Date Type Department Care Team (Late st Contact Info) Description 07/04/2024 11:15 AM CDT Office Visit [facility] Heart and Vascular At [facility] [address] [facility] [address] [place] [address] Esteban Dueñas MD [facility] [address] [facility] [address] [place] [address] documented as of this encounter Visit Diagnoses Not on filedocumented in this encounter Care Teams Maintenance Apprentice Relationship Specialty Start Date End Date Vitaly Manzanares MD [address] [place] [address] PCP - General Family Practice 05/19/22 documented as of this encounter
--- OUTSIDE RECORDS SUMMARY | 2024-06-21 10:59 | XMS_ITS | Encounter Summary ---
Author Organization [facility] Address 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 Gender Identity Not on file Sexual Orientation Not on file documented as of this encounter Plan of Treatment Upcoming Encounters Date Type Department Care Team (Late st Contact Info) Description 07/04/2024 11:15 AM CDT Office Visit [facility] Heart and Vascular At [address] [place] [address] Esteban Dueñas MD [address] [place] [address] [address] [place] [address] documented as of this encounter Visit Diagnoses Diagnosis Unspecified sinusitis (chronic)- Primary documented in this encounter Care Teams Procedural Nurse Relationship Specialty Start Date End Date Vitaly Manzanares MD [address] [place] [address] PCP - General Family Practice 05/19/22 documented as of this encounter
[2024-06-21] MEDS: HYDROcodone/acetaminophen (*CRX) 5-325 MG TABLET 1 TAB PO (11:00)
--- OUTSIDE RECORDS SUMMARY | 2024-06-21 11:00 | XMS_ITS | Encounter Summary ---
Author Organization [facility] Address [facility] [place] [address] Care Team Providers Care Book Agent Name Role Phone Esteban Casanova MD Primary Care Provider Encounter Details Date Type Department Care Team (Late st Contact Info) Description 11/21/2019 Prep for Procedure [facility] [address] [place] [address] Mike Madrigal MD [address] [facility] [address] [place] [address] Social History Tobacco Use Types Packs/Day Years Used Date Smoking Tobacco: Never Smokeless Tobacco: Never Alcohol Use Standard Drinks/Week Comments Not Currently 0 (1 standard drink = 0.6 oz pur e alcohol) Comments No Sex and Gender Information Value Date Recorded Sex Assigned at Not on file Legal Sex Female 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 Yes 11/24/2019 11:52 AM CDT documented as of this encounter Plan of Treatment Not on file documented as of this encounter Results * PRE-SURGICAL/PRE-PROCEDURE CORONAVIRUS (COVID 19) (11/24/2019 11:57 AM CDT) CORONAVIRUS SARS COV 2 PCR (RESP) NOT DETECTED NOT DETECTED 11/25/2019 4:01 PM CDT [facility] [employer] [facility] Comment: A Not Detected (negative) test result for this test means that SARS- CoV-2 RNA was not present in the specimen above the limit of detection. A negative result does not rule out the possibility of COVID-19 and should not be used as the sole basis for treatment or patient management decisions. If COVID-19 is still suspected, based on exposure history together with other clinical findings, re-testing should be considered in consultation with public health authorities. Laboratory test results should always be considered in the context of clinical observations and epidemiological data in making a final diagnosis and patient management decisions. Please review the Fact Sheets and FDA authorized labeling available for health care providers and patients using the following websites: https://[email or web address]/home/Covid-19/HCP/NAAT/fact-sheet2 https://www.[employer]Amed.ShopGo/home/Covid-19/Patients/NAAT/ fact-sheet2 This test has been authorized by the FDA under an Emergency Use Authorization (EUA) for use by authorized laboratories. Due to the current public health emergency, [facility] is receiving a high volume of samples from a wide variety of swabs and media for COVID-19 testing. In order to serve patients during this public health crisis, samples from appropriate clinical sources are being tested. Negative test results derived from specimens received in non-commercially manufactured viral collection and transport media, or in media and sample collection kits not yet authorized by FDA for COVID-19 testing should be cautiously evaluated and the patient potentially subjected to extra precautions such as additional clinical monitoring, including collection of an additional specimen. Methodology: Nucleic Acid Amplification Test (NAAT) includes PCR or TMA Additional information about COVID-19 can be found at the [facility] website: www.Contextors.ShopGo/Covid19. Test performed at [facility] [address] [place] [address] Director: NESSA MCNALLY DO,MPH FIRST TEST UNKNOWN 11/24/2019 3:42 PM CDT [facility] EMPLOYED IN HEALTHCARE NO 11/24/2019 3:42 PM CDT [facility] SYMPTOMATIC DEFINED BY CDC NO 11/24/2019 3:42 PM CDT [facility] DATE OF SYMPTOM ONSET NON-APPLICABLE 11/24/2019 3:42 PM CDT [facility] HOSPITALIZATION STATUS NO 11/24/2019 3:42 PM CDT [facility] PATIENT IN ICU NO 11/24/2019 3:42 PM CDT [facility] RESIDENT OF CONGREGATE CARE NO 11/24/2019 3:42 PM CDT [facility] NO 11/24/2019 3:42 PM CDT [facility] PATIENT'S RACE UNKNOWN 11/24/2019 3:42 PM CDT [facility] ETHNICITY UNKNOWN 11/24/2019 3:42 PM CDT [facility] SOURCE (QST) NASOPHARYNGEAL SWAB 11/24/2019 11:54 AM CDT [facility] NASOPHARYNGEAL SWAB / Unknown 11/24/2019 11:57 AM CDT us Mike Madrigal MD MICROBIOLOGY - GENERAL ORDERAB LES Final Result Performing Organization Address City/State/[facility] Co de Phone Number [facility] [address] [place] [address], [place] [phone] [employer] [facility] [id number] [place] [address], documented in this encounter Visit Diagnoses Diagnosis Preop testing- Primary Preoperative examination, unspecified documented in this encounter Additional Health Concerns Infection Onset Date Last Indicated Resolved Time COVID-19 Rule Out 11/24/2019 11/24/2019 11/25/2019 4:01 PM CDT documented as of this encounter Care Teams Book Agent Relationship Specialty [place] [address] [place] [address] PCP - General INTERNAL MEDICINE 05/16/19 documented as of this encounter
--- OUTSIDE RECORDS SUMMARY | 2024-06-21 11:00 | XMS_ITS | Encounter Summary ---
Author Organization [facility] Address [address] [place] [address] Care Team Providers Care Medical Claims Representative Name Role Phone Vitaly Manzanares MD Primary Care Provider [phone] Encounter Details Date Type Department Care Team (Latest Contact Info) Description 02/23/2003 Outpatient Historical [facility] ChristensenGadiel MD [address] [place] [phone] CHEST PAIN NOS (Primary Dx) Social History Tobacco Use Types Packs/Day Years Used Date Smoking Tobacco: Never Assessed Comments Unknown Sex and Gender Information Value Date Recorded Sex Assigned at Not on file Legal Sex Female 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 Gender Identity Not on file Sexual Orientation Not on file documented as of this encounter Plan of Treatment Upcoming Encounters Date Type Department Care Team (Late st Contact Info) Description 07/04/2024 11:15 AM CDT Office Visit [facility] Heart and Vascular At [address] [place] [address] Esteban Dueñas MD [address] [place] [address] [place] [address] documented as of this encounter Visit Diagnoses Diagnosis Chest pain, unspecified- Primary documented in this encounter Care Teams Medical Claims Representative Relationship Specialty Start Date End Date Vitaly Manzanares MD [address] [place] [address] PCP - General Family Practice 05/19/22 documented as of this encounter
--- OUTSIDE RECORDS SUMMARY | 2024-06-21 11:00 | XMS_ITS | Encounter Summary ---
Author Organization [facility] Address [address] [place] [address] Care Team Providers Care Horticulture Supervisor Name Role Phone Vitaly Manzanares MD Primary Care Provider [phone] Encounter Details Date Type Department Care Team (Late st Contact Info) Description 01/15/2003 Outpatient Historical [facility] Internal Medicine [address] [place] [address] Gadiel Christensen MD [address] [place] [phone] Social History Tobacco Use Types Packs/Day Years Used Date Smoking Tobacco: Never Assessed Comments Unknown Sex and Gender Information Value Date Recorded Sex Assigned at Not on file Legal Sex Female 5:01 AM LAYOUT INSPECTOR Gender Identity Not on file Sexual Orientation Not on file documented as of this encounter Plan of Treatment Upcoming Encounters Date Type Department Care Team (Late st Contact Info) Description 07/04/2024 11:15 AM CDT Office Visit [facility] Heart and Vascular At [facility] [address] [facility] [address] [place] [address] [address]eb[address] Dueñas MD [facility] [address] [facility] [address] [place] [address] documented as of this encounter Visit Diagnoses Not on filedocumented in this encounter Care Teams Horticulture Supervisor Relationship Specialty Start Date End Date Vitaly Manzanares MD [address] [place] [phone] PCP - General Family Practice 05/19/22 documented as of this encounter
--- OUTSIDE RECORDS SUMMARY | 2024-06-21 11:00 | XMS_ITS | Encounter Summary ---
Author Organization [facility] Address [address] [place] [address] Care Team Providers Care Promotions Executive Producer Name Role Phone Vitaly Manzanares MD Primary Care Provider [phone] Encounter Details Date Type Department Care Team (Late st Contact Info) Description 01/25/2003 Outpatient Historical [facility] Internal Medicine [address] [place] [address] Gadiel Christensen MD [address] [place] [phone] Social History Tobacco Use Types Packs/Day Years Used Date Smoking Tobacco: Never Assessed Comments Unknown Sex and Gender Information Value Date Recorded Sex Assigned at Not on file Legal Sex Female 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 [address] [place] [address] Esteban Dueñas MD [facility] [address] [facility] [address] [place] [address] documented as of this encounter Visit Diagnoses Not on filedocumented in this encounter Care Teams Promotions Executive Producer Relationship Specialty Start Date End Date Vitaly Manzanares MD [address] [place] [phone] PCP - General Family Practice 05/19/22 documented as of this encounter
--- OUTSIDE RECORDS SUMMARY | 2024-06-21 11:00 | XMS_ITS | Clinical Summary ---
Author Organization [facility] Address [facility] [place] [address] Care Team Providers Care Ordnance Engineer Name Role Phone Esteban Casanova MD Primary Care Provider Allergies Active Allergy Reactions Criticality Noted Date Comments Tape Contact Dermatitis Medium 05/18/2019 Amlodipine Rash Low 05/18/2019 Aspirin Unknown 05/18/2019 As a child Chlorzoxazone Unknown 05/18/2019 As a child Codeine Rash,Nausea and Vomiting Low 05/18/2019 Iodine Anaphylaxis High 05/18/2019 Tolterodine Rash Low 05/18/2019 Doxycycline Unknown 05/18/2019 Cyclobenzaprine Rash Low 05/18/2019 Influenza Vaccines Anaphylaxis,Swelling High 020 Cephalexin Rash Low 05/18/2019 Naratriptan Rash Low 05/18/2019 Orphenadrine Unknown 05/18/2019 Penicillins Unknown 05/18/2019 Pneumococcal Vaccines Anaphylaxis High 05/18/2019 Prochlorperazine Unknown 05/18/2019 Propoxyphene Rash Low 05/18/2019 Strawberries Anaphylaxis,Shortnes s of Breath High 05/18/2019 Sulfa Antibiotics Anaphylaxis High 05/18/2019 Oseltamivir Rash Low 05/18/2019 Tetanus Immune Globulin Rash,Nausea and Vomiting Low 05/18/2019 Tetracycline Rash Low 05/18/2019 Citrullus Vulgaris Hives,Shortness of Breath,Rash High 05/18/2019 Allergic to all melons Medications lisinopril 2.5 MG tablet Take 2.5 mg by mouth daily. Active CILOSTAZOL OR Take 10 mg by mouth 2 (two) times daily. Active carvedilol 6.25 MG tablet Take 6.25 mg by mouth 2 (two) times daily. Active ranolazine ER 500 MG 12 hr tablet Take 500 mg by mouth 2 (two) times daily. Active atorvastatin 20 MG tablet Take 20 mg by mouth daily. Active probiotic capsule Take 1 capsule by mouth daily with breakfast. Active butalbital-acet aminophen-caffe ine 50-300-40 MG capsule Take 1 capsule by mouth every 4 (four) hours as needed for Pain. Active albuterol sulfate HFA 108 (90 Base) MCG/ACT inhaler Inhale 2 puffs into the lungs every 6 (six) hours as needed for Wheezing. Active EPINEPHrine 0.15 MG/0.15ML injection Inject 0.15 mg into the muscle as needed for Anaphylaxis. Active nitroglycerin 0.[address] 0.4 mg under the tongue every 5 (five) minutes as needed for Chest Pain. Active promethazine 25 MG tablet Take 25 mg by mouth every 6 (six) hours as needed for Nausea. Active hydrocodone-harry taminophen 5-325 MG tablet Take 1 tablet by mouth every 6 (six) hours as needed for Pain. 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 Gender Identity Not on file Sexual Orientation Not on file Last Filed Vital Signs Vital Sign Reading Time Taken Comments Blood Pressure 131/73 11/27/2019 8:32 AM CDT Pulse 75 11/27/2019 8:32 AM CDT Temperature 37.1 C (98.7 F) 11/27/2019 7:10 AM CDT Respiratory Rate 14 11/27/2019 8:32 AM CDT Oxygen Saturation 96% 11/27/2019 8:32 AM CDT Inhaled Oxygen Concentration - - Weight 49.9 kg (110 lb) 11/21/2019 8:59 AM CDT Height 154.9 cm (5' 1 ) 05/22/2019 9:55 AM CDT Body Mass Index 20.78 05/22/2019 9:55 AM CDT Plan of Treatment Health Maintenance Due Date Last Done Comments Colorectal Cancer Screening Colonoscopy (10 Years) 1949 Hepatitis C 12/21/1967 DTaP, Tdap and Td Vaccines ( 1 - Tdap) 1968 Mammogram Screening 1989 Zoster Vaccines (1 of 2) 12/21/1999 Annual Medicare Wellness Visit 2014 Dexa Scan (General) 2014 COVID-19 Vaccine ( - 2023-2 5 season) 2023 RSV Immunization or 60+ Years (1 - 1-dose 75+ series) 2024 Meningococcal B Vaccine Aged Out No l onger eligible based on patient's age to complete this topic Meningococcal Vaccine Aged Out No kurt vanessa eligible based on patient's age to complete this topic RSV Immunizations Under 20 Months Aged Out No longer eligible based on patient's age to complete this topic Medical Devices Implanted Type Area Pipe Supervisor Device Identifier Shelf Expiration Date Model / Serial / Lot Iol [employer]as[employer]ision Zcboo - [id number] Implanted:Qty: 1 on 05/22/2019 by Mike Madrigal MD at [facility] Lens [employer] 07/18/2021 [id number] / / [id number] Iol [employer] Zcboo - [id number] Implanted:Qty: 1 on 11/27/2019 by Mike Madrigal MD at [facility] Lens Right: Eye [employer] 09/25/2023 [id number] / [id number] / Explanted Type Area Pipe Supervisor Device Identifier Shelf Expiration Date Model / Serial / Lot 3 Coronary Stents Insurance AETNA Care Teams Ordnance Engineer Relationship Specialty [place] [address] [place] [address] PCP - General INTERNAL MEDICINE 05/16/19
--- OUTSIDE RECORDS SUMMARY | 2024-06-21 11:00 | XMS_ITS | Encounter Summary ---
Author Organization [facility] Address [address] [place] [address] Care Team Providers Care Logging Truck Driver Name Role Phone Vitaly Manzanares MD Primary Care Provider Encounter Details Date Type Department Care Team (Late st Contact Info) Description 02/23/2003 Outpatient Historical [facility] ([facility]) [address] [place] [phone] Esteban Dueñas MD [address] [place] [address] [address] [place] [address] Social History Tobacco Use Types Packs/Day Years Used Date Smoking Tobacco: Never Assessed Comments Unknown Sex and Gender Information Value Date Recorded Sex Assigned at Not on file Legal Sex Female 5:01 AM BODY WELDER Gender Identity Not on file Sexual Orientation Not on file documented as of this encounter Plan of Treatment Upcoming Encounters Date Type Department Care Team (Late st Contact Info) Description 07/04/2024 11:15 AM CDT Office Visit [facility] Heart and Vascular At [address] [place] [address] Esteban Dueñas MD [address] [place] [address] [place] [address] documented as of this encounter Visit Diagnoses Not on filedocumented in this encounter Care Teams Logging Truck Driver Relationship Specialty Start Date End Date Vitaly Manzanares MD [address] [place] [address] PCP - General Family Practice 05/19/22 documented as of this encounter
--- OUTSIDE RECORDS SUMMARY | 2024-06-21 11:00 | XMS_ITS | Encounter Summary ---
Author Organization [facility] Address [address] [place] [address] Care Team Providers Care Abstracter Name Role Phone Vitaly Manzanares MD Primary Care Provider [phone] Encounter Details Date Type Department Care Team (Late st Contact Info) Description 02/26/[address] 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 Heart and Vascular At [facility] [address] [facility] [address] [place] [address] Esteban Dueñas MD [facility] [address] [facility] [address] [place] [address] documented as of this encounter Visit Diagnoses Not on filedocumented in this encounter Care Teams Abstracter Relationship Specialty Start Date End Date Vitaly Manzanares MD [address] [place] [address] PCP - General Family Practice 05/19/22 documented as of this encounter
--- OUTSIDE RECORDS SUMMARY | 2024-06-21 11:00 | XMS_ITS | Clinical Summary ---
Author Organization [facility] Address [address] [place] [address] Phone Care Team Providers Care Plating Engineer Name Role Phone Vitaly Manzanares MD Primary Care Provider Medications ISOSORBIDE DINITRATE PO Take by mouth. Active lisinopril (PRINIVIL, ZESTRIL) 2.5 MG Tablet Take 2.5 mg by mouth daily. Active cilostazol (PLETAL) 100 MG Tablet Take 100 mg by mouth 2 times daily. Active carvedilol (COREG) 12.5 MG Tablet Take 12.5 mg by mouth 2 times daily. Active Ranolazine (Ranexa) 1000 MG TABLET SR 12 HR Take 1,000 mg by mouth 2 times daily. Active atorvastatin (LIPITOR) 40 MG Tablet Take 40 mg by mouth daily. Active PROCHLORPERAZINE MALEATE PO Take by mouth. Active PROPOXYPHENE NAPSYLATE PO Take by mouth. Active pantoprazole (PROTONIX) 40 MG Tablet Delayed Response Take 40 mg by mouth daily. Active Active Problems Problem Noted Date Diagnosed Date Adjustment disorder with depressed mood 05/16/19 25 Encounters Date Type Department Care Team Description 06/12/2024 10:15 AM CDT Outpatient Clinic Visit [facility] [address] [place] [address] Marcell Joyner, COACH OPERATOR Adjustment disorder with depressed mood (Primary Dx) Discharge Disposition: Discharged to home or Selfcare 06/10/2024 Travel 05/22/2024 2:30 PM CDT [facility] [address] [place] [address] Marcell Joyner LCSW Adjustment disorder with depressed mood (Primary Dx) Discharge Disposition: Discharged to home or Selfcare 05/21/2024 Travel 05/20/2024 Travel 05/15/2024 10:00 AM FOREIGN POLICY OFFICER [facility] [address] [place] [address] Marcell Joyner LCSW Adjustment disorder with depressed mood (Primary Dx) Discharge Disposition: Discharged to home or Selfcare 05/15/2024 Travel from Last 3 Months Family History Medical History Relation Name Comments Bipolar Disorder Father Relation Name Status Comments Father Social History Tobacco Use Types Packs/Day Years Used Date Smoking Tobacco: Never Smokeless Tobacco: Never Tobacco Cessation:Counseling Given: Not Answered Alcohol Use Standard Drinks/Week Comments Yes 0 (1 standard drink = 0.6 oz pure alcohol) occasional cocktail with dinner PHQ-2 Answer Date Recorded Total Score - Questions 1-9 9 05/2024 Sexually Active Control Partners Comments Not Currently Male Comments Unknown Sex and Gender Information Value Date Recorded Sex Assigned at Not on file Legal Sex Female 11:51 PM CDT Gender Identity Not on file Sexual Orientation Not on file Plan of Treatment Upcoming Encounters Date Type Department Care Team (Late st Contact Info) Description 06/30/2024 10:00 AM CDT [facility] [address] [place] [address] Marcell Joyner LCSW [address] [place] [address] Health Maintenance Due Date Last Done Comments Hepatitis C Virus (HCV) Screening 1950 TdaP Immunization 1950 Colonoscopy 1994 Colorectal Cancer Screening 1994 Cologuard 12/21/1999 Immunochemical Fecal Occult Blood 12/21/1999 Zoster Immunization (1 of 2) 12/21/1999 Respiratory Syncytial Virus (RSV) Immunization (Adult) (1 - Risk 60-74 years 1-dose series) 2009 Pneumococcal Immunization (5 0+ years) (2 of 2 - PCV) 01/10/2011 01/10/2010 DEXA Bone Density 06/27/2022 06/27/2020 Mammogram 10/15/2022 10/15/2021, 10/15/2021 Influenza Immunization (#1) 2023 SARS-COV-2 Immunization ( season) 2023 Hepatitis B Immunization Aged Out No longer eligible based on patient's age to complete this topic Meningococcal Immunization (ACWY) Aged Out No longer eligible b ased on patient's age to complete this topic Rotavirus Immunization Aged Out No lo nger eligible based on patient's age to complete this topic Goals Goal Patient Goal Type Associated Problems Recent Progress Patient-Stated? Author Behavioral Health Behavioral Health On track(2024 10:18 AM CDT) Yes Marcell Joyner, COACH OPERATOR Note: I need help coping with all my physical health issues and caregiver stress along with physical limitations from my heart. Goal/Objective: Improve coping skills. Anticipated Time Frame for Goal Completion: 6 months Goal Reviewed with: patient Readiness to change: Ready to change Department associated with goal: [facility] Steps to achieve goal: will identify at least two ways their behavioral health impacts their physical health and vice versa. will identify at least two ways/skills/habits to reduce exacerbation of co- occurring disorders. will implement at least one new way/skill/habit to reduce exacerbation of co-occurring disorders Will attend individual and/or group session at least 1x/month at least 6 sessions Insurance MEDICARE C AETNA Care Teams Plating Engineer Relationship Specialty Start Date End Date Vitaly Manzanares MD [address] [place] [address] PCP - General Family Medicine 04/21/24
[2024-06-21 11:01] LABS: NT Pro B Type Natriuretic Pept 284 pg/mL (0-125)
--- NOTE | 2024-06-21 11:01 | PC.NURSE ---
PT IS RESTING ON STRETCHER, REPORTING HER HEADACHE IS 8/10, MEDICATION ADMINISTERED ORDERED WITHOUT DIFFICULTY. NAD NOTED. PT IS TEXTING ON CELL WITHOUT DISTRESS. VSS PER MONITOR. WILL CONTINUE TO MONITOR.
[2024-06-21 11:02] LABS: Troponin I 10.1 ng/L (0.00-60.4)
--- NOTE | 2024-06-21 11:33 | ECG_ITS ---
Test Date: 2024-06-21 09:57:39 Measurements Intervals Gould Rate: 63 P: 28 WY: 158 QRS: 35 QRSD: 85 T: 42 QT: 446 QTc: 459 Interpretive Statements SINUS RHYTHM POSSIBLE RIGHT VENTRICULAR CONDUCTION DELAY DELAYED PRECORDIAL R/S TRANSITION BORDERLINE T WAVE ABNORMALITY- ANTERIOR LEADS BORDERLINE ECG No previous ECG available for comparison Electronically Signed On 06-21-2024 11:42:06 CDT by Perez Lerma D.O.
--- NOTE | 2024-06-21 11:39 | PC.NURSE ---
PT IS RESTING ON STRETCHER, DENIES ANY NEEDS OR COMPLAINTS AT THIS TIME. PT IS AWAITING REPEAT TROPONIN AT THIS TIME. NAD. WILL CONTINUE TO MONITOR.
--- OUTSIDE RECORDS SUMMARY | 2024-06-21 11:49 | XMS_ITS | Encounter Summary ---
Author Organization [facility] Address [address] [place] [address] Care Team Providers Care Film And Video Graphics Designer Name Role Phone Vitaly Manzanares MD Primary Care Provider [phone] Encounter Details Date Type Department Care Team (Late st Contact Info) Description 05/15/2002 Outpatient Historical [facility] Internal Medicine [id number] [place] [address] Gadiel Christensen MD [address] [place] [phone] Social History Tobacco Use Types Packs/Day Years Used Date Smoking Tobacco: Never Assessed Comments Unknown Sex and Gender Information Value Date Recorded Sex Assigned at Not on file Legal Sex Female 5:01 AM COMPOSITION MOLDER Gender Identity Not on file Sexual Orientation Not on file documented as of this encounter Plan of Treatment Upcoming Encounters Date Type Department Care Team (Late st Contact Info) Description 07/04/2024 11:15 AM CDT Office Visit [facility] Heart and Vascular At [facility] [address] [facility] [place] [address] Esteban Dueñas MD [facility] [address] [facility] [address] [place] [address] documented as of this encounter Visit Diagnoses Not on filedocumented in this encounter Care Teams Film And Video Graphics Designer Relationship Specialty Start Date End Date Vitaly Manzanares MD [address] [place] [address] PCP - General Family Practice 05/19/22 documented as of this encounter
--- OUTSIDE RECORDS SUMMARY | 2024-06-21 11:49 | XMS_ITS | Encounter Summary ---
Author Organization [facility] Address [address] [place] [address] Care Team Providers Care Bushing Press Operator Name Role Phone Vitaly Manzanares MD Primary Care Provider [phone] Encounter Details Date Type Department Care Team (Late st Contact Info) Description 06/09/2002 Outpatient Historical [facility] Internal Medicine [address] [place] [address] Gadiel Christensen MD [address] [place] [phone] Social History Tobacco Use Types Packs/Day Years Used Date Smoking Tobacco: Never Assessed Comments Unknown Sex and Gender Information Value Date Recorded Sex Assigned at Not on file Legal Sex Female 5:01 AM BUSINESS ANALYTICS SPECIALIST Gender Identity Not on file Sexual Orientation Not on file documented as of this encounter Plan of Treatment Upcoming Encounters Date Type Department Care Team (Late st Contact Info) Description 07/04/2024 11:15 AM CDT Office Visit [facility] Heart and Vascular At [facility] [address] [facility] [address] [place] [address] Esteban Dueñas MD [facility] [address] [facility] [address] [place] [address] documented as of this encounter Visit Diagnoses Not on filedocumented in this encounter Care Teams Bushing Press Operator Relationship Specialty Start Date End Date Vitaly Manzanares MD [address] [place] [address] PCP - General Family Practice 05/19/22 documented as of this encounter
--- OUTSIDE RECORDS SUMMARY | 2024-06-21 11:49 | XMS_ITS | Encounter Summary ---
Author Organization [facility] Address [address] [place] [address] Care Team Providers Care Compositor Apprentice Name Role Phone Vitaly Manzanares MD Primary Care Provider Encounter Details Date Type Department Care Team (Late st Contact Info) Description 10/19/2002 Outpatient Historical [facility] Internal Medicine [address] [place] [address] Gadiel Christensen MD [address] [place] [phone] Social History Tobacco Use Types Packs/Day Years Used Date Smoking Tobacco: Never Assessed Comments Unknown Sex and Gender Information Value Date Recorded Sex Assigned at Not on file Legal Sex Female 5:01 AM NURSE GYNECOLOGY Gender Identity Not on file Sexual Orientation Not on file documented as of this encounter Plan of Treatment Upcoming Encounters Date Type Department Care Team (Late st Contact Info) Description 07/04/2024 11:15 AM CDT Office Visit [facility] Heart and Vascular At [facility] [address] [facility] [address] [place] [address] Esteban Dueñas MD [facility] [address] [facility] [address] [place] [address] documented as of this encounter Visit Diagnoses Not on filedocumented in this encounter Care Teams Compositor Apprentice Relationship Specialty Start Date End Date Vitaly Manzanares MD [address] [place] [address] PCP - General Family Practice 05/19/22 documented as of this encounter
--- OUTSIDE RECORDS SUMMARY | 2024-06-21 11:50 | XMS_ITS | Encounter Summary ---
Author Organization [facility] Address [address] [place] [address] Care Team Providers Care Chemistry Manager Name Role Phone Vitaly Manzanares MD Primary Care Provider [phone] Encounter Details Date Type Department Care Team (Late st Contact Info) Description 05/05/2002 Outpatient Historical [facility] Gadiel Andrade MD [address] [place] [phone] SCREENING MAMM-MAILG NEOPL-OTHER (Primary Dx) Social History Tobacco Use Types Packs/Day Years Used Date Smoking Tobacco: Never Assessed Comments Unknown Sex and Gender Information Value Date Recorded Sex Assigned at Not on file Legal Sex Female 5:01 AM MANAGER UNIVERSAL Gender Identity Not on file Sexual Orientation Not on file documented as of this encounter Plan of Treatment Upcoming Encounters Date Type Department Care Team (Late st Contact Info) Description 07/04/2024 11:15 AM CDT Office Visit [facility] Heart and Vascular At [address] [place] [address] Esteban Dueñas MD [address] [place] [address] [address] [place] [address] documented as of this encounter Visit Diagnoses Diagnosis Other screening mammogram- Primary documented in this encounter Care Teams Chemistry Manager Relationship Specialty Start Date End Date Vitaly Manzanares MD [address] [place] [address] PCP - General Family Practice 05/19/22 documented as of this encounter
--- OUTSIDE RECORDS SUMMARY | 2024-06-21 11:50 | XMS_ITS | Encounter Summary ---
Author Organization [facility] Address [address] [place] [address] Care Team Providers Care Community Manager Name Role Phone Vitaly Manzanares MD Primary Care Provider Encounter Details Date Type Department Care Team (Late st Contact Info) Description 03/30/2001 Outpatient Historical [facility] Internal Medicine [address] [place] [address] Gadiel Christensen MD [address] [place] [phone] Social History Tobacco Use Types Packs/Day Years Used Date Smoking Tobacco: Never Assessed Comments Unknown Sex and Gender Information Value Date Recorded Sex Assigned at Not on file Legal Sex Female 5:01 AM TANNERY GUMMER Gender Identity Not on file Sexual Orientation Not on file documented as of this encounter Plan of Treatment Upcoming Encounters Date Type Department Care Team (Late st Contact Info) Description 07/04/2024 11:15 AM CDT Office Visit [facility] Heart and Vascular At [facility] [address] [facility] [address] [place] [address] Esteban Dueñas MD [facility] [address] [facility] [address] [place] [address] documented as of this encounter Visit Diagnoses Not on filedocumented in this encounter Care Teams Community Manager Relationship Specialty Start Date End Date Vitaly Manzanares MD [address] [place] [address] PCP - General Family Practice 05/19/22 documented as of this encounter
--- OUTSIDE RECORDS SUMMARY | 2024-06-21 11:50 | XMS_ITS | Encounter Summary ---
Author Organization [facility] Address [address] [place] [address] Care Team Providers Care Director Content Marketing Name Role Phone Vitaly Manzanares MD Primary Care Provider Encounter Details Date Type Department Care Team (Late st Contact Info) Description 07/18/2001 Outpatient Historical [facility] Internal Medicine [address] [place] [address] Gadiel Christensen MD [address] [place] [phone] Social History Tobacco Use Types Packs/Day Years Used Date Smoking Tobacco: Never Assessed Comments Unknown Sex and Gender Information Value Date Recorded Sex Assigned at Not on file Legal Sex Female 5:01 AM ACTIVITIES COORDINATOR Gender Identity Not on file Sexual Orientation Not on file documented as of this encounter Plan of Treatment Upcoming Encounters Date Type Department Care Team (Late st Contact Info) Description 07/04/2024 11:15 AM CDT Office Visit [facility] Heart and Vascular At [facility] [address] [facility] [address] [place] [address] Esteban Dueñas MD [facility] [address] [facility] [address] [place] [address] documented as of this encounter Visit Diagnoses Not on filedocumented in this encounter Care Teams Director Content Marketing Relationship Specialty Start Date End Date Vitaly Manzanares MD [address] [place] [address] PCP - General Family Practice 05/19/22 documented as of this encounter
--- OUTSIDE RECORDS SUMMARY | 2024-06-21 11:50 | XMS_ITS | Encounter Summary ---
Author Organization [facility] Address [address] [place] [address] Care Team Providers Care Battery Vent Plug Inserter Name Role Phone Vitaly Manzanares MD Primary Care Provider Encounter Details Date Type Department Care Team (Late st Contact Info) Description 02/07/2002 Outpatient Historical [facility] Internal Medicine [address] [place] [address] Gadiel Christensen MD [address] [place] [phone] Social History Tobacco Use Types Packs/Day Years Used Date Smoking Tobacco: Never Assessed Comments Unknown Sex and Gender Information Value Date Recorded Sex Assigned at Not on file Legal Sex Female 5:01 AM LINER REROLL TENDER Gender Identity Not on file Sexual Orientation Not on file documented as of this encounter Plan of Treatment Upcoming Encounters Date Type Department Care Team (Late st Contact Info) Description 07/04/2024 11:15 AM CDT Office Visit [facility] Heart and Vascular At [facility] [address] [facility] [address] [place] [address] Esteban Dueñas MD [facility] [address] [facility] [address] [place] [address] documented as of this encounter Visit Diagnoses Not on filedocumented in this encounter Care Teams Battery Vent Plug Inserter Relationship Specialty Start Date End Date Vitaly Manzanares MD [address] [place] [address] PCP - General Family Practice 05/19/22 documented as of this encounter
--- OUTSIDE RECORDS SUMMARY | 2024-06-21 11:50 | XMS_ITS | Encounter Summary ---
Author Organization [facility] Address [address] [place] [address] Care Team Providers Care In Class Special Education Teacher Name Role Phone Vitaly Manzanares MD Primary Care Provider [phone] Encounter Details Date Type Department Care Team (Late st Contact Info) Description 04/19/2001 Outpatient Historical [facility] Internal Medicine [address] [place] [address] Gadiel Christensen MD [address] [place] [phone] Social History Tobacco Use Types Packs/Day Years Used Date Smoking Tobacco: Never Assessed Comments Unknown Sex and Gender Information Value Date Recorded Sex Assigned at Not on file Legal Sex Female 5:01 AM BAR WELDER Gender Identity Not on file Sexual Orientation Not on file documented as of this encounter Plan of Treatment Upcoming Encounters Date Type Department Care Team (Late st Contact Info) Description 07/04/2024 11:15 AM CDT Office Visit [facility] Heart and Vascular At [facility] [address] [facility] [address] [place] [address] Esteban Dueñas MD [facility] [address] [facility] [address] [place] [address] documented as of this encounter Visit Diagnoses Not on filedocumented in this encounter Care Teams In Class Special Education Teacher Relationship Specialty Start Date End Date Vitaly Manzanares MD [address] [place] [address] PCP - General Family Practice 05/19/22 documented as of this encounter
--- OUTSIDE RECORDS SUMMARY | 2024-06-21 11:50 | XMS_ITS | Encounter Summary ---
Author Organization [facility] Address [address] [place] [address] Care Team Providers Care Order Control Clerk Blood Bank Name Role Phone Vitaly Manzanares MD Primary Care Provider Encounter Details Date Type Department Care Team (Late st Contact Info) Description 05/27/2001 Outpatient Historical [facility] Internal Medicine [address] [place] [address] Gadiel Christensen MD [address] [place] [phone] Social History Tobacco Use Types Packs/Day Years Used Date Smoking Tobacco: Never Assessed Comments Unknown Sex and Gender Information Value Date Recorded Sex Assigned at Not on file Legal Sex Female 5:01 AM HEALTH AND NUTRITION SPECIALIST Gender Identity Not on file Sexual Orientation Not on file documented as of this encounter Plan of Treatment Upcoming Encounters Date Type Department Care Team (Late st Contact Info) Description 07/04/2024 11:15 AM CDT Office Visit [facility] Heart and Vascular At [facility] [address] [facility] [address] [place] [address] Esteban Dueñas MD [facility] [address] [facility] [address] [place] [address] documented as of this encounter Visit Diagnoses Not on filedocumented in this encounter Care Teams Order Control Clerk Blood Bank Relationship Specialty Start Date End Date Vitaly Manzanares MD [address] [place] [address] PCP - General Family Practice 05/19/22 documented as of this encounter
--- OUTSIDE RECORDS SUMMARY | 2024-06-21 11:50 | XMS_ITS | Encounter Summary ---
Author Organization [facility] Address [address] [place] [address] Care Team Providers Care Overnight Associate Name Role Phone Vitaly Manzanares MD Primary Care Provider [phone] Encounter Details Date Type Department Care Team (Late st Contact Info) Description 11/07/[address] [facility] Internal Medicine [address] [place] [address] Gadiel Christensen MD [address] [place] [phone] Social History Tobacco Use Types Packs/Day Years Used Date Smoking Tobacco: Never Assessed Comments Unknown Sex and Gender Information Value Date Recorded Sex Assigned at Not on file Legal Sex Female 5:01 AM WILDLAND FIRE OPERATIONS SPECIALIST Gender Identity Not on file Sexual Orientation Not on file documented as of this encounter Plan of Treatment Upcoming Encounters Date Type Department Care Team (Late st Contact Info) Description 07/04/2024 11:15 AM CDT Office Visit [facility] Heart and Vascular At [facility] [address] [facility] [facility] [address] [place] [address] Esteban Dueñas MD [facility] [address] [facility] [address] [place] [address] documented as of this encounter Visit Diagnoses Not on filedocumented in this encounter Care Teams Overnight Associate Relationship Specialty Start Date End Date Vitaly Manzanares MD [address] [place] [address] PCP - General Family Practice 05/19/22 documented as of this encounter
--- OUTSIDE RECORDS SUMMARY | 2024-06-21 11:50 | XMS_ITS | Encounter Summary ---
Author Organization [facility] Address [address] [place] [address] Care Team Providers Care Cattle And Wheat Farmer Name Role Phone Vitaly Manzanares MD Primary Care Provider Encounter Details Date Type Department Care Team (Late Contact Info) Description 12/30/2001 Outpatient Historical [facility] Internal Medicine [address] [place] [address] Esteban Otto MD [address] [place] [address] Social History Tobacco Use Types Packs/Day Years Used Date Smoking Tobacco: Never Assessed Comments Unknown Sex and Gender Information Value Date Recorded Sex Assigned at Not on file Legal Sex Female 5:01 AM HOP FARMER Gender Identity Not on file Sexual Orientation Not on file documented as of this encounter Plan of Treatment Upcoming Encounters Date Type Department Care Team (Late Contact Info) Description 07/04/2024 11:15 AM CDT Office Visit [facility] Heart and Vascular At [place] [address] [facility] [address] [place] [address] Esteban Dueñas MD [facility] [address] [facility] [address] [place] [address] documented as of this encounter Visit Diagnoses Not on filedocumented in this encounter Care Teams Cattle And Wheat Farmer Relationship Specialty Start Date End Date Vitaly Manzanares MD [address] [place] [address] PCP - General Family Practice 05/19/22 documented as of this encounter
--- OUTSIDE RECORDS SUMMARY | 2024-06-21 11:50 | XMS_ITS | Encounter Summary ---
Author Organization [facility] Address [address] [place] [address] Care Team Providers Care Retirement Sales Consultant Name Role Phone Vitaly Manzanares MD Primary Care Provider Encounter Details Date Type Department Care Team (Late st Contact Info) Description 05/10/2002 Outpatient Historical [facility] Internal Medicine [address] [place] [address] Gadiel Christensen MD [address] [place] [phone] Social History Tobacco Use Types Packs/Day Years Used Date Smoking Tobacco: Never Assessed Comments Unknown Sex and Gender Information Value Date Recorded Sex Assigned at Not on file Legal Sex Female 5:01 AM GREASE MAKER Gender Identity Not on file Sexual Orientation Not on file documented as of this encounter Plan of Treatment Upcoming Encounters Date Type Department Care Team (Late st Contact Info) Description 07/04/2024 11:15 AM CDT Office Visit [facility] Heart and Vascular At [facility] [address] [facility] [address] [place] [address] Esteban Dueñas MD [facility] [address] [facility] [address] [place] [address] documented as of this encounter Visit Diagnoses Not on filedocumented in this encounter Care Teams Retirement Sales Consultant Relationship Specialty Start Date End Date Vitaly Manzanares MD [address] [place] [address] PCP - General Family Practice 05/19/22 documented as of this encounter
--- OUTSIDE RECORDS SUMMARY | 2024-06-21 11:51 | XMS_ITS | Encounter Summary ---
Author Organization [facility] Address [address] [place] [address] Care Team Providers Care Scooper Name Role Phone Vitaly Manzanares MD Primary Care Provider [phone] Encounter Details Date Type Department Care Team (Late st Contact Info) Description 03/09/2006 Outpatient Historical [facility]) Gadiel Christensen MD [address] [place] [phone] Essential Hypertension, Benign (Primary Dx) Social History Tobacco Use Types Packs/Day Years Used Date Smoking Tobacco: Never Assessed Comments Unknown Sex and Gender Information Value Date Recorded Sex Assigned at Not on file Legal Sex Female 5:01 AM SITE OPERATIONS MANAGER Gender Identity Not on file Sexual Orientation Not on file documented as of this encounter Plan of Treatment Upcoming Encounters Date Type Department Care Team (Late Contact Info) Description 07/04/2024 11:15 AM CDT Office Visit [facility] Heart and Vascular At [address] [place] [address] Esteban Dueñas MD [address] [place] [address] [address] [place] [address] documented as of this encounter Procedures Procedure Name Priority Date/Time Associated Diagnosis Comments TSH REFLEXIVE Routine 03/09/2006 9:00 AM SITE OPERATIONS MANAGER CBC WITH DIFFERENTIAL Routine 03/09/2006 9:00 AM SITE OPERATIONS MANAGER CBC WITH DIFFERENTIAL Routine 03/09/2006 9:00 AM SITE OPERATIONS MANAGER CANCER ANTIGEN 125 Routine 03/09/2006 9: 00 AM SITE OPERATIONS MANAGER MAGNESIUM LEVEL Routine 03/09/2006 9:00 AM SITE OPERATIONS MANAGER LIPID PANEL Routine 03/09/2006 9:00 AM SITE OPERATIONS MANAGER COMPREHENSIVE METABOLIC PANEL Routine 03/09/2006 9:00 AM SITE OPERATIONS MANAGER documented in this encounter Results * CBC WITH DIFFERENTIAL (03/09/2006 9:00 AM SITE OPERATIONS MANAGER) NEUTROPHILS 54 45 - 70 % INTERFAC [...] 0.20 K/uL INTERFACE SYSTEM 03/09/2006 9:00 AM SITE OPERATIONS MANAGER Gadiel Christensen MD HEMATOLOGY ORDERABLES Final Re sult INTERFACE SYSTEM Refer to clinic/hospital department * (ABNORMAL) CBC WITH DIFFERENTIAL (03/09/2006 9:00 AM SITE OPERATIONS MANAGER) WBC 5.4 4.0 - 9.8 K/uL INTERFACE [...] 12.4 fL INTERFACE SYSTEM 03/09/2006 9:00 AM SITE OPERATIONS MANAGER Gadiel Christensen MD HEMATOLOGY ORDERABLES Final Re sult Performing Organization Address [facility] Phone Number INTERFACE SYSTEM Refer to clinic/hospital department * TSH REFLEXIVE (03/09/2006 9:00 AM SITE OPERATIONS MANAGER) TSH 1.82 0.27 - 4.20 uU/mL INTERFACE SYSTEM 03/09/2006 9:00 AM SITE OPERATIONS MANAGER Gadiel Christensen MD CHEMISTRY ORDERABLES Final Res ult Performing Organization Address [facility] Phone Number INTERFACE SYSTEM Refer to clinic/hospital department * MAGNESIUM LEVEL (03/09/2006 9:00 AM SITE OPERATIONS MANAGER) MAGNESIUM 1.8 1.5 - 2.5 mg/dL INTERFACE SYSTEM 03/09/2006 9:00 AM SITE OPERATIONS MANAGER Gadiel Christensen MD CHEMISTRY ORDERABLES Final Res ult Performing Organization Address [facility] Phone Number INTERFACE SYSTEM Refer to clinic/hospital department * CANCER ANTIGEN 125 (03/09/2006 9:00 AM SITE OPERATIONS MANAGER) CA 125 8 <=34 U/mL INTERFACE SYSTEM [...] a cancer screening test. 03/09/2006 9:00 AM SITE OPERATIONS MANAGER Gadiel Christensen MD CHEMISTRY ORDERABLES Final Res ult Performing Organization Address [facility] Co de Phone Number INTERFACE SYSTEM Refer to clinic/hospital department * (ABNORMAL) LIPID PANEL (03/09/2006 9:00 AM SITE OPERATIONS MANAGER) CHOLESTEROL 223(H) 100 - 199 mg/dL INTERFACE SYSTEM TRIGLYCERIDE 130 10 - 149 mg/dL INTERFACE SYSTEM HDL 83(H) 40 - 59 mg/dL INTERFACE SYSTEM CHOL/HDL RATIO 2.7 2.0 - 5.0 INTER FACE SYSTEM LDL CALCULATED 114(H) <=99 mg/dL INTERFACE SYSTEM LIPID PANEL COMMENT See Below INTERFACE SYSTEM Comment: The adult ATP and pediatric NCEP classifications for lipids are available on the [facility] Intranet at: [email or web address] Select: Lab Policies and Procedures Select: Reference Ranges - Lipids 03/09/2006 9:00 AM SITE OPERATIONS MANAGER Gadiel Christensen MD CHEMISTRY ORDERABLES Final Res ult Performing Organization Address [facility] Co de Phone Number INTERFACE SYSTEM Refer to clinic/hospital department * COMPREHENSIVE METABOLIC PANEL (03/09/2006 9:00 AM SITE OPERATIONS MANAGER) GLUCOSE 93 65 - 99 mg/dL INTERFACE [...] and non- Americans is available on the [facility] Intranet at: [email or web address] Select: Lab Policies and Procedures Select: Reference Ranges - GFR 03/09/2006 9:00 AM SITE OPERATIONS MANAGER us Gadiel Christensen MD CHEMISTRY ORDERABLES Final Res ult INTERFACE SYSTEM Refer to clinic/hospital department documented in this encounter Visit Diagnoses Diagnosis Essential hypertension, benign- Primary documented in this encounter Care Teams Scooper Relationship Specialty Start Date End Date Vitaly Manzanares MD [address] [place] [address] PCP - General Family Practice 05/19/22 documented as of this encounter
--- OUTSIDE RECORDS SUMMARY | 2024-06-21 11:51 | XMS_ITS | Encounter Summary ---
Author Organization [facility] Address [address] [place] [address] Care Team Providers Care Back Feeder Plywood Layup Line Name Role Phone Vitaly Manzanares MD Primary Care Provider Encounter Details Date Type Department Care Team (Late st Contact Info) Description 06/22/2005 Outpatient Historical [facility] Internal Medicine [address] [place] [address] Gadiel Christensen MD [address] [place] [phone] Social History Tobacco Use Types Packs/Day Years Used Date Smoking Tobacco: Never Assessed Comments Unknown Sex and Gender Information Value Date Recorded Sex Assigned at Not on file Legal Sex Female 5:01 AM RATER ASSOCIATE Gender Identity Not on file Sexual Orientation Not on file documented as of this encounter Plan of Treatment Upcoming Encounters Date Type Department Care Team (Late st Contact Info) Description 07/04/2024 11:15 AM CDT Office Visit [facility] Heart and Vascular At [facility] [address] [facility] [address] [place] [address] Esteban Dueñas MD [facility] [address] [facility] [address] [place] [address] documented as of this encounter Visit Diagnoses Not on filedocumented in this encounter Care Teams Back Feeder Plywood Layup Line Relationship Specialty Start Date End Date Vitaly Manzanares MD [address] [place] [phone] PCP - General Family Practice 05/19/22 documented as of this encounter
--- OUTSIDE RECORDS SUMMARY | 2024-06-21 11:51 | XMS_ITS | Encounter Summary ---
Author Organization [facility] Address [address] [place] [address] Care Team Providers Care Software Tools Build Engineer Name Role Phone Vitaly Manzanares MD Primary Care Provider Encounter Details Date Type Department Care Team (Late st Contact Info) Description 11/19/2004 Outpatient Historical [facility] Gadiel Christensen MD [address] [place] [phone] CERVICALGIA (Primary Dx) Social History Tobacco Use Types Packs/Day Years Used Date Smoking Tobacco: Never Assessed Comments Unknown Sex and Gender Information Value Date Recorded Sex Assigned at Not on file Legal Sex Female 5:01 AM PLANNING SPECIALIST Gender Identity Not on file Sexual Orientation Not on file documented as of this encounter Plan of Treatment Upcoming Encounters Date Type Department Care Team (Late st Contact Info) Description 07/04/2024 11:15 AM CDT Office Visit [facility] Heart and Vascular At [address] [place] [address] Esteban Dueñas MD [address] [place] [address] [address] [place] [address] documented as of this encounter Visit Diagnoses Diagnosis Cervicalgia- Primary documented in this encounter Care Teams Software Tools Build Engineer Relationship Specialty Start Date End Date Vitaly Manzanares MD [address] [place] [address] PCP - General Family Practice 05/19/22 documented as of this encounter
--- OUTSIDE RECORDS SUMMARY | 2024-06-21 11:51 | XMS_ITS | Encounter Summary ---
Author Organization [facility] Address [address] [place] [address] Care Team Providers Care Power Plant Operations Manager Name Role Phone Vitaly Manzanares MD Primary Care Provider Encounter Details Date Type Department Care Team (Latest Contact Info) Description 10/02/2005 Outpatient Historical [facility] [place] ([facility]) Gadiel Christensen MD [address] [place] [phone] Hypopotassemia (Primary Dx) Social History Tobacco Use Types Packs/Day Years Used Date Smoking Tobacco: Never Assessed Comments Unknown Sex and Gender Information Value Date Recorded Sex Assigned at Not on file Legal Sex Female 5:01 AM DISTRIBUTION CENTER ASSOCIATE Gender Identity Not on file Sexual Orientation Not on file documented as of this encounter Plan of Treatment Upcoming Encounters Date Type Department Care Team (Late st Contact Info) Description 07/04/2024 11:15 AM CDT Office Visit [facility] Heart and Vascular At [address] [place] [address] Esteban Dueñas MD [address] [place] [address] [address] [place] [address] documented as of this encounter [...] INTERFACE SYSTEM Comment: Lab test performed by: [facility] [id number] [place] [id number] DEMAR BUCK MD 10/02/2005 3:26 PM CDT Gadiel Christensen MD CHEMISTRY ORDERABLES COM Final Result Performing Organization Address [facility] de Phone Number INTERFACE SYSTEM Refer to clinic/hospital department * MAGNESIUM LEVEL (10/02/2005 3:26 PM CDT) MAGNESIUM 1.7 1.5 - 2.5 mg/dL INTERFACE SYSTEM 10/02/2005 3:26 PM CDT Gadiel Christensen MD CHEMISTRY ORDERABLES Final Res ult Performing Organization Address [facility] de Phone Number INTERFACE SYSTEM Refer to [...] ORDERABLES Final Res ult Performing Organization Address [facility] Co de Phone Number INTERFACE SYSTEM Refer to clinic/hospital department documented in this encounter Visit Diagnoses Diagnosis Hypopotassemia- Primary documented in this encounter Care Teams Power Plant Operations Manager Relationship Specialty Start Date End Date Vitaly Manzanares MD [address] [place] [address] PCP - General Family Practice 05/19/22 documented as of this encounter
--- OUTSIDE RECORDS SUMMARY | 2024-06-21 11:51 | XMS_ITS | Encounter Summary ---
Author Organization [facility] Address [address] [place] [address] Care Team Providers Care Chemical Equipment Repairer Name Role Phone Vitaly Manzanares MD Primary Care Provider [phone] Encounter Details Date Type Department Care Team (Late st Contact Info) Description 02/13/2005 Outpatient Historical [facility] Internal Medicine [id number] [place] [address] Gadiel Christensen MD [address] [place] [phone] Social History Tobacco Use Types Packs/Day Years Used Date Smoking Tobacco: Never Assessed Comments Unknown Sex and Gender Information Value Date Recorded Sex Assigned at Not on file Legal Sex Female 5:01 AM EVP MARKETING Gender Identity Not on file Sexual Orientation Not on file documented as of this encounter Plan of Treatment Upcoming Encounters Date Type Department Care Team (Late st Contact Info) Description 07/04/2024 11:15 AM CDT Office Visit [facility] Heart and Vascular At [facility] [address] [facility] [address] [place] [address] Esteban Dueñas MD [facility] [address] [facility] [address] [place] [address] documented as of this encounter Visit Diagnoses Not on filedocumented in this encounter Care Teams Chemical Equipment Repairer Relationship Specialty Start Date End Date Vitaly Manzanares MD [address] [place] [address] PCP - General Family Practice 05/19/22 documented as of this encounter
--- OUTSIDE RECORDS SUMMARY | 2024-06-21 11:51 | XMS_ITS | Encounter Summary ---
Author Organization [facility] Address [address] [place] [address] Care Team Providers Care Home Health Lpn Name Role Phone Vitaly Manzanares MD Primary Care Provider Encounter Details Date Type Department Care Team (Late st Contact Info) Description 01/26/2006 Outpatient Historical [facility] Internal Medicine [id number] [place] [address] Gadiel Christensen MD [address] [place] [phone] Social History Tobacco Use Types Packs/Day Years Used Date Smoking Tobacco: Never Assessed Comments Unknown Sex and Gender Information Value Date Recorded Sex Assigned at Not on file Legal Sex Female 5:01 AM ACCOUNT MANAGER FOREST SERVICE Gender Identity Not on file Sexual Orientation Not on file documented as of this encounter Plan of Treatment Upcoming Encounters Date Type Department Care Team (Late st Contact Info) Description 07/04/2024 11:15 AM CDT Office Visit [facility] At [facility] [address] [facility] [address] [place] [address] Esteban Dueñas MD [facility] [address] [facility] [address] [place] [address] documented as of this encounter Visit Diagnoses Not on filedocumented in this encounter Care Teams Home Health Lpn Relationship Specialty Start Date End Date Vitaly Manzanares MD [address] [place] [address] PCP - General Family Practice 05/19/22 documented as of this encounter
--- OUTSIDE RECORDS SUMMARY | 2024-06-21 11:51 | XMS_ITS | Encounter Summary ---
Author Organization [facility] Address [address] [place] [address] Care Team Providers Care Awning Finisher Name Role Phone Vitlay Manzanares MD Primary Care Provider [phone] Encounter Details Date Type Department Care Team (Late st Contact Info) Description 05/06/[address] [facility] Gadiel Andrade MD [address] [place] [phone] ABNORMAL FINDING-SKULL & HEAD (Primary Dx) Social History Tobacco Use Types Packs/Day Years Used Date Smoking Tobacco: Never Assessed Comments Unknown Sex and Gender Information Value Date Recorded Sex Assigned at Not on file Legal Sex Female 5:01 AM HAIR SALON MANAGER Gender Identity Not on file Sexual Orientation Not on file documented as of this encounter Plan of Treatment Upcoming Encounters Date Type Department Care Team (Late Contact Info) Description 07/04/2024 11:15 AM CDT Office Visit [facility] Heart and Vascular At [address] [place] [address] Esteban Dueñas MD [address] [place] [address] [address] [place] [address] documented as of this encounter Visit Diagnoses Diagnosis Nonspecific (abnormal) findings on radiological and other examination of skull and head- Primary documented in this encounter Care Teams Awning Finisher Relationship Specialty Start Date End Date Vitaly Manzanares MD [address] [place] [address] PCP - General Family Practice 05/19/22 documented as of this encounter
--- OUTSIDE RECORDS SUMMARY | 2024-06-21 11:51 | XMS_ITS | Encounter Summary ---
Author Organization [facility] Address [address] [place] [address] Care Team Providers Care Pierogi Maker Name Role Phone Vitaly Manzanares MD Primary Care Provider Encounter Details Date Type Department Care Team (Late st Contact Info) Description 08/19/2005 Outpatient Historical [facility] Internal Medicine [address] [place] [address] Gadiel Christensen MD [address] [place] [phone] Social History Tobacco Use Types Packs/Day Years Used Date Smoking Tobacco: Never Assessed Comments Unknown Sex and Gender Information Value Date Recorded Sex Assigned at Not on file Legal Sex Female 5:01 AM COFFEE TASTER Gender Identity Not on file Sexual Orientation Not on file documented as of this encounter Plan of Treatment Upcoming Encounters Date Type Department Care Team (Late st Contact Info) Description 07/04/2024 11:15 AM CDT Office Visit [facility] Heart and Vascular At [facility] [address] [facility] [address] [place] [address] Esteban Dueñas MD [facility] [address] [facility] [address] [place] [address] documented as of this encounter Visit Diagnoses Not on filedocumented in this encounter Care Teams Pierogi Maker Relationship Specialty Start Date End Date Vitaly Manzanares MD [address] [place] [address] PCP - General Family Practice 05/19/22 documented as of this encounter
--- OUTSIDE RECORDS SUMMARY | 2024-06-21 11:51 | XMS_ITS | Encounter Summary ---
Author Organization [facility] Address [address] [place] [address] Care Team Providers Care Institution Librarian Name Role Phone Vitaly Manzanares MD Primary Care Provider [phone] Encounter Details Date Type Department Care Team (Latest Contact Info) Description 06/07/2004 Outpatient Historical [facility] Gadiel Christensen MD [address] [place] [phone] DISC DEGENERATION NOS (Primary Dx) Social History Tobacco Use Types Packs/Day Years Used Date Smoking Tobacco: Never Assessed Comments Unknown Sex and Gender Information Value Date Recorded Sex Assigned at Not on file Legal Sex Female 5:01 AM SALES ADMINISTRATION SPECIALIST Gender Identity Not on file Sexual Orientation Not on file documented as of this encounter Plan of Treatment Upcoming Encounters Date Type Department Care Team (Late st Contact Info) Description 07/04/2024 11:15 AM CDT Office Visit [facility] Heart and Vascular At [facility] [address] [facility] [address] [place] [address] Esteban Dueñas MD [facility] [address] [facility] [address] [place] [address] documented as of this encounter Visit Diagnoses Diagnosis Degeneration of intervertebral disc, site unspecified- Primary documented in this encounter Care Teams Institution Librarian Relationship Specialty Start Date End Date Vitaly Manzanares MD [address] [place] [address] PCP - General Family Practice 05/19/22 documented as of this encounter
--- OUTSIDE RECORDS SUMMARY | 2024-06-21 11:51 | XMS_ITS | Encounter Summary ---
Author Organization [facility] Address [address] [place] [address] Care Team Providers Care Countersinker Name Role Phone Vitaly Manzanares MD Primary Care Provider Encounter Details Date Type Department Care Team (Late st Contact Info) Description 06/28/2006 Outpatient Historical [facility] Internal Medicine [id number] [place] [address] Gadiel Christensen MD [address] [place] [phone] Social History Tobacco Use Types Packs/Day Years Used Date Smoking Tobacco: Never Assessed Comments Unknown Sex and Gender Information Value Date Recorded Sex Assigned at Not on file Legal Sex Female 5:01 AM INSTRUMENTATION TECHNOLOGIST Gender Identity Not on file Sexual Orientation Not on file documented as of this encounter Plan of Treatment Upcoming Encounters Date Type Department Care Team (Late st Contact Info) Description 07/04/2024 11:15 AM CDT Office Visit [facility] Heart and Vascular At [facility] [address] [facility] [address] [place] [address] Esteban Dueñas MD [facility] [address] [facility] [address] [place] [address] documented as of this encounter Visit Diagnoses Not on filedocumented in this encounter Care Teams Countersinker Relationship Specialty Start Date End Date Vitaly Manzanares MD [address] [place] [address] PCP - General Family Practice 05/19/22 documented as of this encounter
--- OUTSIDE RECORDS SUMMARY | 2024-06-21 11:51 | XMS_ITS | Clinical Summary ---
Author Organization [facility] Address [address] [place] [address] Care Team Providers Care Tank Car Inspector Name Role Phone Vitaly Manzanares MD Primary Care Provider [phone] Allergies Active Allergy Reactions Criticality Noted Date [...] Breath/Wheezing,Rash High 02/24/2016 Naratriptan Rash Low 04/22/2007 Igbrwfsgrumf-Uhw-Gibposls Unknown 04/22/2007 Oseltamivir Phosphate Rash Low 04/22/2007 Penicillins Unknown 04/22/2007 As a child Pneumococcal Vaccine Anaphylaxis,Rash High 1 Prochlorperazine Edisylate Unknown 8 Propoxyphene Rash Low 04/22/2007 [place] Anaphylaxis,Shortnes s of Breath/Wheezing High 02/24/2016 Sulfa [...] Not taking Active fluticasone (FLONASE) 50 mcg/spray Keeler, Suspension USE TWO SPRAYS IN EACH NOSTRIL [...] 200 mg CapsuleIndication s:Coronary artery disease involving [place] heart with unstable angina pectoris, unspecified vessel [...] migh t be different from the original. [facility] Full Review 02/25/16 tn Esteban Dueñas MD--Artillery Meteorological Man ([facility] @ ) Problem Noted Date Diagnosed Date Age-related osteoporosis, T -3.7 R fem neck Barry h 202006/30/2020 Allergy to influenza vaccine 02/20/2020 Allergy to Streptococcus pneumoniae vaccine 10/2019 Chronic fatigue 02/12/2020 Left ventricular systolic dysfunction, NYHA clas s 2 01/11/2017 S/P coronary artery stents p lacement, 02/26/16, 11/13/16, 05/19/22, 01/05, 02/23/24 12/07/2016 Coronary artery disease of n ative artery of [place] heart with stable angina pectoris 06/09/2016 Aspirin [...] Type Department Care Team Description 05/28/2024 Refill [facility] At [address] [place] [address] Esteban Dueñas MD 04/29/2024 Refill [facility] At [address] [place] [address] Esteban Dueñas MD Mixed hyperlipidemia 04/22/2024 [facility]ill [facility] [address] [address] [place] [address] Esteban Dueñas MD 04/11/2024 External Device Data STL ABSTRACTION Provider, Abstract 04/05/2024 External Device Data STL ABSTRACTION Provider, Abstract 04/05/2024 External Device Data STL ABSTRACTION Provider, Abstract 04/05/2024 Telephone [facility] - [facility] [address] [place] [address] Esteban Dueñas MD Release to return to Cardiac rehab 04/03/2024 11:00 AM DIRECTOR OF RESEARCH AND DEVELOPMENT Video Visit [facility] At [address] [place] [address] Esteban Dueñas MD Coronary artery disease of [place] artery of [place] heart with stable angina pectoris (Primary Dx); Left ventricular systolic dysfunction, NYHA class 2; Pure hypercholesterolemia; Essential hypertension; S/P coronary artery stents placement, 02/26/16, 11/13/16, 05/19/22, 01/05, 02/23/24; Allergic reaction to dye, subsequent encounter 04/01/2024 Refill [facility] At [address] [place] [address] Esteban Dueñas MD Essential hypertension (Primary Dx) 03/28/2024 Refill [facility] At [address] [place] [address] Esteban Dueñas MD from Last 3 Months [...] on file Legal Sex Female 5:01 AM DIRECTOR OF RESEARCH AND DEVELOPMENT Gender Identity Not on file Sexual Orientation Not on file Occupation Industry Job Start Date Job End Date Not on file Not on file Not on file Not on file Last Filed Vital Signs Vital Sign Reading Time Taken Comments Blood Pressure 125/78 04/03/2024 10:37 AM DIRECTOR OF RESEARCH AND DEVELOPMENT Pulse 89 04/03/2024 10:37 AM DIRECTOR OF RESEARCH AND DEVELOPMENT Temperature 36.6 C (97.9 F) 04/03/2024 10:37 AM DIRECTOR OF RESEARCH AND DEVELOPMENT Respiratory Rate 18 02/23/2024 12:00 PM DIRECTOR OF RESEARCH AND DEVELOPMENT Oxygen Saturation 98% 04/03/2024 10:37 AM DIRECTOR OF RESEARCH AND DEVELOPMENT Inhaled Oxygen Concentration - - Weight 49.4 kg (109 lb) 04/03/2024 10:37 AM DIRECTOR OF RESEARCH AND DEVELOPMENT Height 152.4 cm (5') 04/03/2024 10:37 AM DIRECTOR OF RESEARCH AND DEVELOPMENT Body Mass Index 21.29 04/03/2024 10:37 AM DIRECTOR OF RESEARCH AND DEVELOPMENT Plan of Treatment Upcoming Encounters Date Type Department Care Team (Late st Contact Info) Description 07/04/2024 11:15 AM CDT Office Visit [facility] At [place] [address] [facility] [address] [place] [address] Esteban Dueñas MD [facility] [address] [facility] [address] [place] [address] Health Maintenance Due Date Last [...] exists INFLUENZA VACCINE (#1) 2023 [place]) Preventative Visit/Annual Wellness Visit 03/15/2024 02/20/2020, 11/29/2017, 12/24/2014, Additional history exists OSTEOPOROSIS SCREENING Completed 06/27/2020, 2020 Medical Devices Implanted Type Area Local City Driver Device Identifier Shelf Expiration Date Model / Serial / Lot Daniele- 016 Implanted:Qty : 1 on 02/26/2016 by Rony Deleon MD Stent Coronary [employer] 02/11/2017 / / [id number] Description:bare metal stent placed in the obtuse marginal coronary artery number 1 Daniele- 016 Implanted:Qty : 1 on 02/26/2016 by Rony Deleon MD Stent Coronary [employer] 05/12/2018 / / [id number] Description:bare metal stent placed in the right coronary artery Daniele- 016 Implanted:Qty : 1 on 02/26/2016 by Rony Deleon MD Stent Coronary [employer] 04/14/2017 / / [id number] Description:bare metal stent placed in the right coronary artery Promus Premier- 017 Implanted:03/2016 by Arslan Gale MD (Quantity not on file) Stent [employer] 09/28/2017 / / [id number] Description:OM1 Promus Premier- 017 Implanted:03/2016 by Arslan Gale MD (Quantity not on file) Stent [employer] 09/28/2017 / / [id number] Description:RCA Promus Premier- 017 Implanted:03/2016 by Arslan Gale MD (Quantity not on file) Stent [employer] 02/14/2018 / / [id number] Description:rca Stent Synergy Xd 3.0x12mm Evrlms Elut [id number] - [id number] Implanted:Qty : 1 on 05/19/2022 by Conor Grimm MD at [facility] Stent Right: Coronary [employer] 12/15/2023 [id number] / / [id number] Stent Dany [place] Teom 3.0x18mm Rx [id number] - [id number] Implanted:Qty : 1 on 12/17/2023 by Conor Grimm MD at [facility] Stent Right: Coronary [employer] [id number] 02/03/2026 [id number] 18UX / / [id number] Stent [place] Temo 3.28e31ac Rx [id number] - [id number] Implanted:Qty : 1 on 02/23/2024 by Conor Grimm MD at [facility] Stent N/A: Coronary [employer] [id number] 04/26/2026 [id number] 15UX / / [id number] Procedures Procedure Name Priority Date/Time Associated [...] 1 OR MORE SITES (06/27/2020) T-SCORE FEMUR [facility] T-SCORE FEMUR (LEFT) [facility] T-SCORE FEMUR (RIGHT) [facility] T-SCORE FEMUR NECK [facility] T-SCORE FEMORAL NECK (LEFT) [facility] T-SCORE FEMORAL NECK (RIGHT) [facility] T-SCORE HEEL [facility] [place] T-SCORE HEEL (LEFT) [facility] T-SCORE HEEL (RIGHT) [facility] T-SCORE HIP [facility] T-SCORE HIP (LEFT) [facility] T-SCORE HIP (RIGHT) [facility] T-SCORE WRIST [facility] T-SCORE WRIST (LEFT) [facility] T-SCORE WRIST (RIGHT) [facility] T-SCORE SPINE [facility] Anatomical Region Laterality Modality Other us Esteban Casanova MD DIAGNOSTIC IMAGING ORD ERABLES Final Result * COLON CANCER SCREEN, STOOL DNA (10/17/2018 12:16 PM CDT) COLOGUARD RESULT Negative Not Applicable [employer] [facility] Comment: A negative result indicates [...] Ordaz et al, N Engl J Med 2014;370(14):8064-6030) COLOGUARD RE-SCREENING RECOMMENDATION: Periodic routine colorectal cancer screening is an important part of preventive healthcare for asymptomatic persons at average risk for colorectal cancer. Following a negative Cologuard result, the Australian Cancer Society and U.S. Multi-Society Task Force screening guidelines recommend a Cologuard re-screening interval of 3 years. References: Australian Cancer Society (ACS). Colorectal cancer prevention and early detection. [place], [place]: Australian Cancer Society; [updated 2015Jul 06]. https://www.cancer.org/cancer/mvqnp-fetcow-qaqzrd/wnvhfjqxe-zwdniroin-mzdogtk/ac s-rec ommendations.html. Accessed November 12, 2017; Brayden DK, Amanda CR, Jacquie HenryK, Colorectal Cancer Screening: Recommendations for Physicians and Patients from the U.S. Multi-Society Task Force on Colorectal Cancer Screening, Am J Gastroenterology 2017; 112:1671-3739. Test Type: Composite algorithmic analysis of stool [...] can be accessed at the following location: www.[employer]ill Content/results. Additional description of the Cologuard test process, warnings and precautions can be found at www.cologuardtest.com. Rx Only. Stool STOOL SPECIMEN / Unknown 10/17/2018 12:16 PM CDT 10/18/2018 7:16 PM CDT Esteban Casanova MD BODY FLUIDS AND STOOLS Final Result [employer] CLIA # [id number] [address] [facility] [place] [address] from Last 3 Months or Most Recently Relevant to Health Maintenance Insurance RX AETNA Medicare Part D AETNA O [facility] Advance Directives For more information, please contact: [phone] Documents on File Type Date Recorded Patient Product Development Coordinator Expl anation Advance Directive POA 08/31/2023 3:26 [...] 8:37 AM 11/13/2016 12:58 PM Care Teams Tank Car Inspector Relationship Specialty Start Date End Date Vitaly Manzanares MD [address] [place] [address] PCP - General Family Practice 05/19/22
--- OUTSIDE RECORDS SUMMARY | 2024-06-21 11:51 | XMS_ITS | Encounter Summary ---
Author Organization [facility] Address [address] [place] [address] Care Team Providers Care Work Over Rig Operator Name Role Phone Vitaly Manzanares MD Primary Care Provider Encounter Details Date Type Department Care Team (Late st Contact Info) Description 05/19/2004 Outpatient Historical [facility] Gadiel Christensen MD [address] [place] [phone] ABNORMAL FINDING-SKULL & HEAD (Primary Dx) Social History Tobacco Use Types Packs/Day Years Used Date Smoking Tobacco: Never Assessed Comments Unknown Sex and Gender Information Value Date Recorded Sex Assigned at Not on file Legal Sex Female 5:01 AM INSOLE LIP TURNER Gender Identity Not on file Sexual Orientation Not on file documented as of this encounter Plan of Treatment Upcoming Encounters Date Type Department Care Team (Late Contact Info) Description 07/04/2024 11:15 AM CDT Office Visit [facility] V[facility] At [address] [place] [address] Esteban Dueñas MD [address] [place] [address] [place] [address] documented as of this encounter Visit Diagnoses Diagnosis Nonspecific (abnormal) findings on radiological and other examination of skull and head- Primary documented in this encounter Care Teams Work Over Rig Operator Relationship Specialty Start Date End Date Vitaly Manzanares MD [address] [place] [address] PCP - General Family Practice 05/19/22 documented as of this encounter
--- OUTSIDE RECORDS SUMMARY | 2024-06-21 11:51 | XMS_ITS | Encounter Summary ---
Author Organization [facility] Address [address] [place] [address] Care Team Providers Care Gas Compressor Turbine Operator Name Role Phone Vitaly Manzanares MD Primary Care Provider Encounter Details Date Type Department Care Team (Late st Contact Info) Description 07/09/2004 Outpatient Historical [facility] Gadiel Christensen MD [address] [place] [phone] Social History Tobacco Use Types Packs/Day Years Used Date Smoking Tobacco: Never Assessed Comments Unknown Sex and Gender Information Value Date Recorded Sex Assigned at Not on file Legal Sex Female 5:01 AM CUSTOM CLOTHIER Gender Identity Not on file Sexual Orientation Not on file documented as of this encounter Plan of Treatment Upcoming Encounters Date Type Department Care Team (Late st Contact Info) Description 07/04/2024 11:15 AM CDT Office Visit [facility] Heart and Vascular At [place] [address] [facility] [address] [place] [address] Esteban Dueñas MD [address] [place] [address] [address] [place] [address] documented as of this encounter Visit Diagnoses Not on filedocumented in this encounter Care Teams Gas Compressor Turbine Operator Relationship Specialty Start Date End Date Vitaly Manzanares MD [address] [place] [address] PCP - General Family Practice 05/19/22 documented as of this encounter
--- OUTSIDE RECORDS SUMMARY | 2024-06-21 11:51 | XMS_ITS | Encounter Summary ---
Author Organization [facility] Address [address] [place] [address] Care Team Providers Care Net Developer Consultant Name Role Phone Vitaly Manzanares MD Primary Care Provider [phone] Encounter Details Date Type Department Care Team (Late st Contact Info) Description 06/04/2005 Outpatient Historical [facility] Internal Medicine [place] [address] [place] [address] Gadiel Christensen MD [address] [place] [phone] Social History Tobacco Use Types Packs/Day Years Used Date Smoking Tobacco: Never Assessed Comments Unknown Sex and Gender Information Value Date Recorded Sex Assigned at Not on file Legal Sex Female 5:01 AM CHICKEN AND FISH CLEANER Gender Identity Not on file Sexual Orientation Not on file documented as of this encounter Plan of Treatment Upcoming Encounters Date Type Department Care Team (Late st Contact Info) Description 07/04/2024 11:15 AM CDT Office Visit [facility] Heart and Vascular At [facility] [address] [facility] [address] [place] [address] Esteban Dueñas MD [facility] [address] [facility] [address] [place] [address] documented as of this encounter Visit Diagnoses Not on filedocumented in this encounter Care Teams Net Developer Consultant Relationship Specialty Start Date End Date Vitaly Manzanares MD [address] [place] [address] PCP - General Family Practice 05/19/22 documented as of this encounter
--- OUTSIDE RECORDS SUMMARY | 2024-06-21 11:51 | XMS_ITS | Encounter Summary ---
Author Organization [facility] Address [address] [place] [address] Care Team Providers Care Pmo Consultant Name Role Phone Vitaly Manzanares MD Primary Care Provider [phone] Encounter Details Date Type Department Care Team (Latest Contact Info) Description 05/06/2004 Outpatient Historical [facility] Gadiel Christensen MD [address] [place] [phone] DISC DISPLACEMENT NOS (Primary Dx) Social History Tobacco Use Types Packs/Day Years Used Date Smoking Tobacco: Never Assessed Comments Unknown Sex and Gender Information Value Date Recorded Sex Assigned at Not on file Legal Sex Female 5:01 AM 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 AND 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 REPAIRER Gender Identity Not on file Sexual Orientation Not on file documented as of this encounter Plan of Treatment Upcoming Encounters Date Type Department Care Team (Late st Contact Info) Description 07/04/2024 11:15 AM CDT Office Visit [facility] Heart and Vascular At [facility] [address] [facility] [address] [place] [address] Esteban Dueñas MD [facility] [address] [facility] [address] [place] [address] documented as of this encounter Visit Diagnoses Diagnosis Displacement of intervertebral disc, site unspecified, without myelopathy- Primary documented in this encounter Care Teams Pmo Consultant Relationship Specialty Start Date End Date Vitaly Manzanares MD [address] [place] [address] PCP - General Family Practice 05/19/22 documented as of this encounter
--- OUTSIDE RECORDS SUMMARY | 2024-06-21 11:51 | XMS_ITS | Encounter Summary ---
Author Organization [facility] Address [address] [place] [address] Care Team Providers Care Tailer In Name Role Phone Vitaly Manzanares MD Primary Care Provider [phone] Encounter Details Date Type Department Care Team (Late st Contact Info) Description 05/19/2005 Outpatient Historical [facility] Internal Medicine [place] [address] [place] [address] Gadiel Christensen MD [address] [place] [phone] Social History Tobacco Use Types Packs/Day Years Used Date Smoking Tobacco: Never Assessed Comments Unknown Sex and Gender Information Value Date Recorded Sex Assigned at Not on file Legal Sex Female 5:01 AM 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 Gender Identity Not on file Sexual Orientation Not on file documented as of this encounter Plan of Treatment Upcoming Encounters Date Type Department Care Team (Late st Contact Info) Description 07/04/2024 11:15 AM CDT Office Visit [facility] Heart and Vascular At [facility] [address] [facility] [address] [place] [address] Esteban Dueñas MD [facility] [address] [facility] [address] [place] [address] documented as of this encounter Visit Diagnoses Not on filedocumented in this encounter Care Teams Tailer In Relationship Specialty Start Date End Date Vitaly Manzanares MD [address] [place] [address] PCP - General Family Practice 05/19/22 documented as of this encounter
--- OUTSIDE RECORDS SUMMARY | 2024-06-21 11:51 | XMS_ITS | Encounter Summary ---
Author Organization [facility] Address 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 Gender Identity Not on file Sexual Orientation Not on file documented as of this encounter Plan of Treatment Upcoming Encounters Date Type Department Care Team (Late st Contact Info) Description 07/04/2024 11:15 AM CDT Office Visit [facility] Heart and Vascular At [place] [address] [facility] [address] [place] [address] Esteban Dueñas MD [address] [place] [address] [address] [place] [address] documented as of this encounter Visit Diagnoses Not on filedocumented in this encounter Care Teams Lumber Tallier Relationship Specialty Start Date End Date Vitaly Manzanares MD [address] [place] [phone] PCP - General Family Practice 05/19/22 documented as of this encounter
--- OUTSIDE RECORDS SUMMARY | 2024-06-21 11:52 | XMS_ITS | Encounter Summary ---
Author Organization [facility] Address [address] [place] [address] Care Team Providers Care Sanitation Laborer Name Role Phone Vitaly Manzanares MD Primary Care Provider Encounter Details Date Type Department Care Team (Late st Contact Info) Description 08/29/2003 Outpatient Historical [facility] Internal Medicine [place] [address] [place] [address] Gadiel Christensen MD [address] [place] [phone] Social History Tobacco Use Types Packs/Day Years Used Date Smoking Tobacco: Never Assessed Comments Unknown Sex and Gender Information Value Date Recorded Sex Assigned at Not on file Legal Sex Female 5:01 AM RECONCILIATION COORDINATOR Gender Identity Not on file Sexual Orientation Not on file documented as of this encounter Plan of Treatment Upcoming Encounters Date Type Department Care Team (Late st Contact Info) Description 07/04/2024 11:15 AM CDT Office Visit [facility] Heart and Vascular At [facility] [address] [facility] [address] [place] [address] Esteban Dueñas MD [facility] [address] [facility] [address] [place] [address] documented as of this encounter Visit Diagnoses Not on filedocumented in this encounter Care Teams Sanitation Laborer Relationship Specialty Start Date End Date Vitaly Manzanares MD [address] [place] [phone] PCP - General Family Practice 05/19/22 documented as of this encounter
--- OUTSIDE RECORDS SUMMARY | 2024-06-21 11:52 | XMS_ITS | Encounter Summary ---
Author Organization [facility] Address [address] [place] [address] Care Team Providers Care Process Safety Manager Name Role Phone Vitaly Manzanares MD Primary Care Provider Encounter Details Date Type Department Care Team (Late st Contact Info) Description 05/05/2004 Outpatient Historical [facility] Internal Medicine [place] [id number] [place] [address] Gadiel Christensen MD [address] [place] [phone] Social History Tobacco Use Types Packs/Day Years Used Date Smoking Tobacco: Never Assessed Comments Unknown Sex and Gender Information Value Date Recorded Sex Assigned at Not on file Legal Sex Female 5:01 AM HARDNESS TESTER Gender Identity Not on file Sexual Orientation Not on file documented as of this encounter Plan of Treatment Upcoming Encounters Date Type Department Care Team (Late st Contact Info) Description 07/04/2024 11:15 AM CDT Office Visit [facility] Heart and Vascular At [facility] [address] [facility] [address] [place] [address] Esteban Dueañs MD [facility] [address] [facility] [address] [place] [address] documented as of this encounter Visit Diagnoses Not on filedocumented in this encounter Care Teams Process Safety Manager Relationship Specialty Start Date End Date Vitaly Manzanares MD [address] [place] [address] PCP - General Family Practice 05/19/22 documented as of this encounter
--- OUTSIDE RECORDS SUMMARY | 2024-06-21 11:52 | XMS_ITS | Encounter Summary ---
Author Organization [facility] Address [address] [place] [address] Care Team Providers Care Patient Financial Coordinator Name Role Phone Vitaly Manzanares MD Primary Care Provider [phone] Encounter Details Date Type Department Care Team (Late st Contact Info) Description 04/04/2004 Outpatient Historical [facility] Gdaiel Christensen MD [address] [place] [phone] DISC DIS NEC/NOS-UNSPEC (Primary Dx) Social History Tobacco Use Types Packs/Day Years Used Date Smoking Tobacco: Never Assessed Comments Unknown Sex and Gender Information Value Date Recorded Sex Assigned at Not on file Legal Sex Female 5:01 AM SAP PI ARCHITECT Gender Identity Not on file Sexual Orientation Not on file documented as of this encounter Plan of Treatment Upcoming Encounters Date Type Department Care Team (Late Contact Info) Description 07/04/2024 11:15 AM CDT Office Visit [facility] Heart and Vascular At [address] [place] [address] Esteban Dueñas MD [address] [place] [address] [address] [place] [address] documented as of this encounter Visit Diagnoses Diagnosis Other and unspecified disc disorder of unspecified region- Primary documented in this encounter Care Teams Patient Financial Coordinator Relationship Specialty Start Date End Date Vitaly Manzanares MD [address] [place] [address] PCP - General Family Practice 05/19/22 documented as of this encounter
--- OUTSIDE RECORDS SUMMARY | 2024-06-21 11:52 | XMS_ITS | Encounter Summary ---
Author Organization [facility] Address 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 Gender Identity Not on file Sexual Orientation Not on file documented as of this encounter Plan of Treatment Upcoming Encounters Date Type Department Care Team (Late st Contact Info) Description 07/04/2024 11:15 AM CDT Office Visit [facility] Heart and Vascular At [address] [place] [address] Esteban Dueñas MD [address] [place] [address] [place] [address] documented as of this encounter Visit Diagnoses Diagnosis Unspecified sinusitis (chronic)- Primary documented in this encounter Care Teams Cutter Woodwind Reeds Relationship Specialty Start Date End Date Vitaly Manzanares MD [address] [place] [address] PCP - General Family Practice 05/19/22 documented as of this encounter
--- OUTSIDE RECORDS SUMMARY | 2024-06-21 11:52 | XMS_ITS | Encounter Summary ---
Author Organization [facility] Address [address] [place] [address] Care Team Providers Care Network Engineering Advisor Name Role Phone Vitaly Manzanares MD Primary Care Provider Encounter Details Date Type Department Care Team (Late st Contact Info) Description 12/28/2003 Outpatient Historical [facility] Gadiel Bardales MD [address] [place] [phone] SCREENING MAMM-MAILG NEOPL-OTHER (Primary Dx) Social History Tobacco Use Types Packs/Day Years Used Date Smoking Tobacco: Never Assessed Comments Unknown Sex and Gender Information Value Date Recorded Sex Assigned at Not on file Legal Sex Female 5:01 AM BECK TENDER Gender Identity Not on file Sexual Orientation Not on file documented as of this encounter Plan of Treatment Upcoming Encounters Date Type Department Care Team (Late Contact Info) Description 07/04/2024 11:15 AM CDT Office Visit [facility] Heart and Vascular At [address] [place] [address] Esteban Dueñas MD [address] [place] [address] [place] [address] documented as of this encounter Visit Diagnoses Diagnosis Other screening mammogram- Primary documented in this encounter Care Teams Network Engineering Advisor Relationship Specialty Start Date End Date Vitaly Manzanares MD [address] [place] [address] PCP - General Family Practice 05/19/22 documented as of this encounter
--- OUTSIDE RECORDS SUMMARY | 2024-06-21 11:52 | XMS_ITS | Encounter Summary ---
Author Organization [facility] Address [address] [place] [address] Care Team Providers Care Welt Stitcher Name Role Phone Vitaly Manzanares MD Primary Care Provider [phone] Encounter Details Date Type Department Care Team (Late st Contact Info) Description 11/27/2003 Outpatient Historical [facility] Medicine [address] [place] [address] Gadiel Christensen MD [address] [place] [phone] Social History Tobacco Use Types Packs/Day Years Used Date Smoking Tobacco: Never Assessed Comments Unknown Sex and Gender Information Value Date Recorded Sex Assigned at Not on file Legal Sex Female 5:01 AM KILN WORKER Gender Identity Not on file Sexual Orientation Not on file documented as of this encounter Plan of Treatment Upcoming Encounters Date Type Department Care Team (Late st Contact Info) Description 07/04/2024 11:15 AM CDT Office Visit [facility] Heart and Vascular At [facility] [address] [facility] [address] [place] [address] Esteban Dueñas MD [facility] [address] [facility] [address] [place] [address] documented as of this encounter Visit Diagnoses Not on filedocumented in this encounter Care Teams Welt Stitcher Relationship Specialty Start Date End Date Vitaly Manzanares MD [address] [place] [address] PCP - General Family Practice 05/19/22 documented as of this encounter
--- OUTSIDE RECORDS SUMMARY | 2024-06-21 11:52 | XMS_ITS | Encounter Summary ---
Author Organization [facility] Address [address] [place] [address] Care Team Providers Care Manhole Builder Name Role Phone Vitaly Manzanares MD Primary Care Provider Encounter Details Date Type Department Care Team (Late st Contact Info) Description 06/15/2003 Outpatient Historical [facility] Internal Medicine [address] [place] [address] Gadiel Christensen MD [address] [place] [phone] Social History Tobacco Use Types Packs/Day Years Used Date Smoking Tobacco: Never Assessed Comments Unknown Sex and Gender Information Value Date Recorded Sex Assigned at Not on file Legal Sex Female 5:01 AM EXHIBITOR SALES Gender Identity Not on file Sexual Orientation Not on file documented as of this encounter Plan of Treatment Upcoming Encounters Date Type Department Care Team (Late st Contact Info) Description 07/04/2024 11:15 AM CDT Office Visit [facility] Heart and Vascular At [facility] [address] [facility] [address] [place] [address] Esteban Dueñas MD [facility] [address] [facility] [address] [place] [address] documented as of this encounter Visit Diagnoses Not on filedocumented in this encounter Care Teams Manhole Builder Relationship Specialty Start Date End Date Vitaly Manzanares MD [address] [place] [address] PCP - General Family Practice 05/19/22 documented as of this encounter
--- OUTSIDE RECORDS SUMMARY | 2024-06-21 11:52 | XMS_ITS | Encounter Summary ---
Author Organization [facility] Address [address] [place] [address] Care Team Providers Care Marketing Ambassador Name Role Phone Vitaly Manzanares MD Primary Care Provider [phone] Encounter Details Date Type Department Care Team (Late st Contact Info) Description 01/28/2004 Outpatient Historical [facility] Internal Medicine [address] [place] [address] Gadiel Christensen MD [address] [place] [phone] Social History Tobacco Use Types Packs/Day Years Used Date Smoking Tobacco: Never Assessed Comments Unknown Sex and Gender Information Value Date Recorded Sex Assigned at Not on file Legal Sex Female 5:01 AM CLINICAL ACCOUNT SPECIALIST Gender Identity Not on file Sexual Orientation Not on file documented as of this encounter Plan of Treatment Upcoming Encounters Date Type Department Care Team (Late st Contact Info) Description 07/04/2024 11:15 AM CDT Office Visit [facility] Heart and Vascular At [facility] [address] [facility] [address] [place] [address] Esteban Dueñas MD [facility] [address] [facility] [address] [place] [address] documented as of this encounter Visit Diagnoses Not on filedocumented in this encounter Care Teams Marketing Ambassador Relationship Specialty Start Date End Date Vitaly Manzanares MD [address] [place] [address] PCP - General Family Practice 05/19/22 documented as of this encounter
--- OUTSIDE RECORDS SUMMARY | 2024-06-21 11:52 | XMS_ITS | Encounter Summary ---
Author Organization [facility] Address [address] [place] [address] Care Team Providers Care Mastic Man Name Role Phone Vitaly Manzanares MD Primary Care Provider [phone] Encounter Details Date Type Department Care Team (Late st Contact Info) Description 02/26/2003 Outpatient Historical [facility] Internal Medicine [address] [place] [address] Gadiel Christensen MD [address] [place] [phone] Social History Tobacco Use Types Packs/Day Years Used Date Smoking Tobacco: Never Assessed Comments Unknown Sex and Gender Information Value Date Recorded Sex Assigned at Not on file Legal Sex Female 5:01 AM QUALITY FACILITATOR Gender Identity Not on file Sexual Orientation Not on file documented as of this encounter Plan of Treatment Upcoming Encounters Date Type Department Care Team (Late st Contact Info) Description 07/04/2024 11:15 AM CDT Office Visit [facility] Heart and Vascular At [facility] [address] [facility] [address] [place] [address] Esteban Dueñas MD [facility] [address] [facility] [address] [place] [address] documented as of this encounter Visit Diagnoses Not on filedocumented in this encounter Care Teams Mastic Man Relationship Specialty Start Date End Date Vitaly Manzanares MD [address] [place] [address] PCP - General Family Practice 05/19/22 documented as of this encounter
--- OUTSIDE RECORDS SUMMARY | 2024-06-21 11:52 | XMS_ITS | Encounter Summary ---
Author Organization [facility] Address [address] [place] [address] Care Team Providers Care Tractor Sweeper Driver Name Role Phone Vitaly Manzanares MD Primary Care Provider [phone] Encounter Details Date Type Department Care Team (Late st Contact Info) Description 10/30/2003 Outpatient Historical [facility] Internal Medicine [address] [place] [address] Gadiel Christensen MD [address] [place] [phone] Social History Tobacco Use Types Packs/Day Years Used Date Smoking Tobacco: Never Assessed Comments Unknown Sex and Gender Information Value Date Recorded Sex Assigned at Not on file Legal Sex Female 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 [address] [place] [address] Esteban Dueñas MD [facility] [address] [facility] [address] [place] [address] documented as of this encounter Visit Diagnoses Not on filedocumented in this encounter Care Teams Tractor Sweeper Driver Relationship Specialty Start Date End Date Vitaly Manzanares MD [address] [place] [address] PCP - General Family Practice 05/19/22 documented as of this encounter
--- OUTSIDE RECORDS SUMMARY | 2024-06-21 11:53 | XMS_ITS | Encounter Summary ---
Author Organization [facility] Address [address] [place] [address] Care Team Providers Care Metallography Teacher Name Role Phone Vitaly Manzanares MD Primary Care Provider [phone] Encounter Details Date Type Department Care Team (Late st Contact Info) Description 02/23/2003 Outpatient Historical [facility]) [address] [place] [address] Esteban Dueñas MD [address] [place] [address] [address] [place] [address] Social History Tobacco Use Types Packs/Day Years Used Date Smoking Tobacco: Never Assessed Comments Unknown Sex and Gender Information Value Date Recorded Sex Assigned at Not on file Legal Sex Female 5:01 AM NAVY MATERIAL INSPECTOR Gender Identity Not on file Sexual Orientation Not on file documented as of this encounter Plan of Treatment Upcoming Encounters Date Type Department Care Team (Late st Contact Info) Description 07/04/2024 11:15 AM CDT Office Visit [facility] Heart and Vascular At [address] [place] [address] Esteban Dueñas MD [address] [place] [address] [address] [place] [address] documented as of this encounter Visit Diagnoses Not on filedocumented in this encounter Care Teams Metallography Teacher Relationship Specialty Start Date End Date Vitaly Manzanares MD [address] [place] [address] PCP - General Family Practice 05/19/22 documented as of this encounter
--- OUTSIDE RECORDS SUMMARY | 2024-06-21 11:53 | XMS_ITS | Clinical Summary ---
Author Organization [facility] Address [address] [place] [address] Phone Care Team Providers Care Facing Cutting Machine Operator Name Role Phone Vitaly Manzanares MD Primary Care Provider [phone] Medications ISOSORBIDE DINITRATE PO Take by mouth. [...] 06/12/2024 10:15 AM CDT Outpatient Clinic Visit [facility] [address] [place] [address] Marcell Joyner, SALES REPRESENTATIVE GROCERIES Adjustment disorder with depressed mood (Primary Dx) Discharge Disposition: Discharged to home or Selfcare 06/10/2024 Travel 05/22/2024 2:30 PM CDT Outpatient Clinic Visit [facility] [address] [place] [address] Marcell Joyner LCSW Adjustment disorder with depressed mood (Primary Dx) Discharge Disposition: Discharged to home or Selfcare 05/21/2024 Travel 05/20/2024 Travel 05/15/2024 10:00 AM TEST AND RESEARCH REACTOR OPERATOR Outpatient Clinic Visit [facility] [address] [place] [address] Marcell Joyner LCSW Adjustment disorder with depressed [...] 06/30/2024 10:00 AM CDT Outpatient Clinic Visit [facility] [address] [place] [address] Marcell Joyner LCSW [address] [place] [address] Health Maintenance Due Date Last Done Comments [...] track(2024 10:18 AM CDT) Yes Marcell Joyner, SALES REPRESENTATIVE GROCERIES Note: I need help coping with all my physical health issues and caregiver stress along with physical limitations from my heart. Goal/Objective: Improve coping skills. Anticipated Time Frame for Goal Completion: 6 months Goal Reviewed with: patient Readiness to change: Ready to change Department associated with goal: [facility] Steps to achieve [...] sessions Insurance MEDICARE C AETNA Care Teams Facing Cutting Machine Operator Relationship Specialty Start Date End Date Vitaly Manzanares MD [address] [address] PCP - General Family Medicine 04/21/24
--- OUTSIDE RECORDS SUMMARY | 2024-06-21 11:53 | XMS_ITS | Clinical Summary ---
Author Organization [facility] Address [facility] [place] [address] Care Team Providers Care Human Resources Records Clerk Name Role Phone Esteban Casanova MD Primary [...] on file Legal Sex Female 1:00 PM COMBINE INSPECTOR Gender Identity Not on file Sexual [...] this topic Medical Devices Implanted Type Area Plastics Seasoner Operator Device Identifier Shelf Expiration Date Model / Serial / Lot Iol Velasquez Precision Zcboo - [id number] Implanted:Qty: 1 on 05/22/2019 by Mike Madrigal MD at [facility] Lens [employer] 07/18/2021 [id number] / / [id number] Iol Velasquez Precision Zcboo - [id number] Implanted:Qty: 1 on 11/27/2019 by Mike Madrigal MD at [facility] Lens Right: Eye [employer] 09/25/2023 [id number] / [id number] / Explanted Type Area Plastics Seasoner Operator Device Identifier Shelf Expiration Date Model / Serial / Lot 3 Coronary Stents Insurance AETNA Care Teams Human Resources Records Clerk Relationship Specialty [place] [address] [place] [address] PCP - General INTERNAL MEDICINE 05/16/19
--- OUTSIDE RECORDS SUMMARY | 2024-06-21 11:53 | XMS_ITS | Encounter Summary ---
Author Organization [facility] Address [address] [place] [address] Care Team Providers Care 411 Directory Assistance Operator Name Role Phone Vitaly Manzanares MD Primary Care Provider [phone] Encounter Details Date Type Department Care Team (Late st Contact Info) Description 01/15/2003 Outpatient Historical [facility] Internal Medicine [id number] [place] [address] Gadiel Christensen MD [address] [place] [phone] Social History Tobacco Use Types Packs/Day Years Used Date Smoking Tobacco: Never Assessed Comments Unknown Sex and Gender Information Value Date Recorded Sex Assigned at Not on file Legal Sex Female 5: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 Gender Identity Not on file Sexual Orientation Not on file documented as of this encounter Plan of Treatment Upcoming Encounters Date Type Department Care Team (Late st Contact Info) Description 07/04/2024 11:15 AM CDT Office Visit [facility] Heart and Vascular At [facility] [address] [facility] [address] [place] [address] Esteban Dueñas MD [facility] [address] [facility] [address] [place] [address] documented as of this encounter Visit Diagnoses Not on filedocumented in this encounter Care Teams 411 Directory Assistance Operator Relationship Specialty Start Date End Date Vitaly Manzanares MD [address] [place] [address] PCP - General Family Practice 05/19/22 documented as of this encounter
--- OUTSIDE RECORDS SUMMARY | 2024-06-21 11:53 | XMS_ITS | Encounter Summary ---
Author Organization [facility] Address [facility] [place] [address] Care Team Providers Care Employee Relation Manager Name Role Phone Esteban Casanova MD Primary Care Provider Encounter Details Date Type Department Care Team (Late st Contact Info) Description 11/21/[address] [facility] [address] [place] [address] Mike Madrigal MD [address] [facility] [address] [place] [address] Social History Tobacco Use Types Packs/Day Years Used Date Smoking Tobacco: Never Smokeless Tobacco: Never Alcohol Use Standard Drinks/Week Comments Not Currently 0 (1 standard drink = 0.6 oz pur e alcohol) Comments No Sex and Gender Information Value Date Recorded Sex Assigned at Not on file Legal Sex Female 1:00 PM MANAGER CONSUMER INSIGHTS Gender Identity Not on file Sexual Orientation [...] DETECTED NOT DETECTED 11/25/2019 4:01 PM CDT [facility] Comment: A Not Detected (negative) test result [...] providers and patients using the following websites: https://www.[employer]Mouth Party/home/Covid-19/HCP/NAAT/fact-sheet2 https://www.[employer]outh Party/home/Covid-19/Patients/NAAT/ fact-sheet2 This test has been authorized by the FDA under an Emergency Use Authorization (EUA) for use by authorized laboratories. Due to the current public health emergency, [facility] is receiving a high volume of samples [...] about COVID-19 can be found at the [employer] website: www.[employer].Mouth Party/Covid19. Test performed at [facility] [place] [address] [place] [address] Director: NESSA MCNALLY DO,MPH FIRST TEST UNKNOWN 11/24/2019 3:42 PM CDT [facility] EMPLOYED IN HEALTHCARE NO 11/24/2019 3:42 PM CDT [facility] SYMPTOMATIC DEFINED BY CDC NO 11/24/2019 3:42 PM CDT [facility] DATE OF SYMPTOM ONSET NON-APPLICABLE 11/24/2019 3:42 PM CDT [facility] HOSPITALIZATION STATUS NO 11/24/2019 3:42 PM CDT [facility] PATIENT IN ICU NO 11/24/2019 3:42 PM CDT [facility] RESIDENT OF CONGREGATE CARE NO 11/24/2019 3:42 PM CDT [facility] NO 11/24/2019 3:42 PM CDT [facility] PATIENT'S RACE UNKNOWN 11/24/2019 3:42 PM CDT [facility] ETHNICITY UNKNOWN 11/24/2019 3:42 PM CDT [facility] SOURCE (QST) NASOPHARYNGEAL SWAB 11/24/2019 11:54 AM CDT [facility] NASOPHARYNGEAL SWAB / Unknown 11/24/2019 11:57 AM CDT us Mike Madrigal MD MICROBIOLOGY - GENERAL ORDERAB LES Final Result Performing Organization Address City/State/[facility] Co de Phone Number [facility] [address] [place] [address], [place] [phone] [facility] [id number] [place] [address], documented in this encounter Visit Diagnoses Diagnosis Preop testing- Primary Preoperative examination, unspecified documented in this encounter Additional Health Concerns Infection Onset Date Last Indicated Resolved Time COVID-19 Rule Out 11/24/2019 11/24/2019 11/25/2019 4:01 PM CDT documented as of this encounter Care Teams Employee Relation Manager Relationship Specialty [place] [address] [place] [address] PCP - General INTERNAL MEDICINE 05/16/19 documented as of this encounter
--- OUTSIDE RECORDS SUMMARY | 2024-06-21 11:53 | XMS_ITS | Encounter Summary ---
Author Organization [facility] Address [address] [place] [address] Care Team Providers Care Keno Writer Name Role Phone Vitaly Manzanares MD Primary Care Provider Encounter Details Date Type Department Care Team (Late st Contact Info) Description 01/25/2003 Outpatient Historical [facility] Internal Medicine [address] [place] [address] Gadiel Christensen MD [address] [place] [phone] Social History Tobacco Use Types Packs/Day Years Used Date Smoking Tobacco: Never Assessed Comments Unknown Sex and Gender Information Value Date Recorded Sex Assigned at Not on file Legal Sex Female 5:01 AM TUBULAR PRODUCTS FABRICATOR Gender Identity Not on file Sexual Orientation Not on file documented as of this encounter Plan of Treatment Upcoming Encounters Date Type Department Care Team (Late st Contact Info) Description 07/04/2024 11:15 AM CDT Office Visit [facility] Heart and Vascular At [facility] [address] [facility] [address] [place] [address] Esteban Dueñas MD [facility] [address] [facility] [address] [place] [address] documented as of this encounter Visit Diagnoses Not on filedocumented in this encounter Care Teams Keno Writer Relationship Specialty Start Date End Date Vitaly Manzanares MD [address] [place] [address] PCP - General Family Practice 05/19/22 documented as of this encounter
--- OUTSIDE RECORDS SUMMARY | 2024-06-21 11:53 | XMS_ITS | Encounter Summary ---
Author Organization [facility] Address [address] [place] [address] Care Team Providers Care Rehabilitation Services Counselor Name Role Phone Vitaly Manzanares MD Primary Care Provider [phone] Encounter Details Date Type Department Care Team (Latest Contact Info) Description 02/23/2003 Outpatient Historical [facility] ChristensenGadiel MD [address] [place] [phone] CHEST PAIN NOS (Primary Dx) Social History Tobacco Use Types Packs/Day Years Used Date Smoking Tobacco: Never Assessed Comments Unknown Sex and Gender Information Value Date Recorded Sex Assigned at Not on file Legal Sex Female 5:01 AM HOT METAL CHARGER Gender Identity Not on file Sexual Orientation Not on file documented as of this encounter Plan of Treatment Upcoming Encounters Date Type Department Care Team (Late st Contact Info) Description 07/04/2024 11:15 AM CDT Office Visit [facility] Heart and Vascular At [address] [place] [address] Esteban Dueñas MD [address] [place] [address] [address] [place] [address] documented as of this encounter Visit Diagnoses Diagnosis Chest pain, unspecified- Primary documented in this encounter Care Teams Rehabilitation Services Counselor Relationship Specialty Start Date End Date Vitaly Manzanares MD [address] [place] [address] PCP - General Family Practice 05/19/22 documented as of this encounter
--- NOTE | 2024-06-21 12:21 | PC.NURSE ---
HEADACHE HAS IMPROVED. PT IS AWAITING REDRAW OF TROPONIN. NAD NOTED. VSS PER MONITOR. WILL CONTINUE TO MONITOR.
--- NOTE | 2024-06-21 12:49 | PC.NURSE ---
LAB AT BEDSIDE OBTAINING REPEAT TROPONIN LEVEL AT THIS TIME. NO CHANGE IN PT STATUS. WILL CONTINUE TO MONITOR.
[2024-06-21 13:13] LABS: Troponin I 11.2 ng/L (0.00-60.4)
--- NOTE | 2024-06-21 13:28 | PC.NURSE ---
PT UP TO RR WITHOUT DIFFICULTY, AWAITING ERP DECISION.
== END 2024-06-21 13:50 | disposition home or self-care (01) ==
PROVIDERS: Emergency Provider Internal Medicine Critical Care Medicine; PCP Family Medicine
DX: I25.119 Atherosclerotic heart disease of native coronary artery with unspecified angina pectoris (principal); G43.909 Migraine, unspecified, not intractable, without status migrainosus; I11.0 Hypertensive heart disease with heart failure; I50.30 Unspecified diastolic (congestive) heart failure
CPT/HCPCS: 36415; 71045; 80053; 83880; 84484; 85025; 85610; 85730; 93005; 99284; A9270

== ENCOUNTER 2024-06-22 08:04 | Outpatient (CLI) | payer MEDICARE, SELFPAY ==
--- NOTE | ~2024-06-22 | MR_ITS ---
EXAMINATION: MR lumbar spine wo con DATE: 06/22/2024 08:42 INDICATION: Lumbosacral spondylosis with radiculopathy TECHNIQUE: Magnetic resonance imaging (MRI) of the lumbar spine was performed without intravenous con trast. Sequences included sagittal T2-weighted FSE, sagittal T2-weighted FS FSE, sagittal T1-weighted FSE, and axial T2-weighted FSE. 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 There are 11 more cephalad paired rib bearing thoracic segments on the prior chest CT. There are 4 more caudal nonrib-bearing lumbar segments L1-L4. L5 is sacralize d. 8 degrees lumbar levocurvature. 4 mm anterolisthesis L3 on L4. Vertebral body heights are normal. Normal marrow signal. Mild disc height loss at L2-L3 and mild to moderate disc height loss at throug h L4 and L4-L5. The conus medullaris terminates at L2. There is normal signal in the caudal spinal co rd. Paravertebral soft tissues are unremarkable. The following disc levels are specifically discussed : T11-T12: Small central disc protrusion. There is mild bilateral facet joint osteoarthritis. There is no neural foraminal stenosis. There is minimal central canal stenosis. T12-L1: Disc is minimally bulging. There is mild bilateral facet joint osteoarthritis. There is no ne ural foraminal stenosis. There is no central canal stenosis. L1-L2: Disc is minimally bulging. There is moderate bilateral facet joint osteoarthritis. There is mi ld right neural foraminal stenosis. There is no central canal stenosis. L2-L3: Disc is bulging. There is mild to moderate bilateral facet joint osteoarthritis. There is mild bilateral neural foraminal stenosis. There is mild central canal stenosis. L3-L4: Annular fissure and broad-based disc extrusion extending from foraminal zone to foraminal zone with disc material extending 2 to 3 mm cephalad to the level of the inferior endplate of L3. There i s severe bilateral facet joint osteoarthritis. There is mild left and mild to moderate right neural f oraminal stenosis. There is hypertrophy of the right ligamentum flavum. There is posterior decompress ion with prior left hemilaminotomy. There is mild central canal stenosis with narrowing lateral reces ses, mild on the left and moderate on the right. L4-L5: Disc is mildly bulging. There is moderate bilateral facet joint osteoarthritis. There is mild to moderate bilateral neural foraminal stenosis. There is no central canal stenosis. L5-S1: The disc is developmentally small and does not extend beyond the endplate margin. There is a T arlov cyst along the right L5 nerve root. There is no central canal stenosis. IMPRESSION: 1. Mild to moderate lumbar spondylosis. 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 Reviewed, dictated and finalized at location B. IMPRESSION: 1. Mild to moderate lumbar spondylosis. Of note numbering convention reflects a transitional T12 segment with hypoplastic riblets, sacralized L5 segment and 4 intervening nonrib-bearing lumbar segments.
--- OUTSIDE RECORDS SUMMARY | 2024-06-22 08:09 | XMS_ITS | Encounter Summary ---
Author Organization [facility] Address [address] [place] [address] Care Team Providers Care Polisher Balance Screwhead Name Role Phone Vitaly Manzanares MD Primary Care Provider Encounter Details Date Type Department Care Team (Late st Contact Info) Description 10/19/2002 Outpatient Historical [facility] Internal Medicine [address] [place] [address] Gadiel Christensen MD [address] [place] [phone] Social History Tobacco Use Types Packs/Day Years Used Date Smoking Tobacco: Never Assessed Comments Unknown Sex and Gender Information Value Date Recorded Sex Assigned at Not on file Legal Sex Female 5:01 AM DOCUMENTATION IMPROVEMENT SPECIALIST Gender Identity Not on file Sexual Orientation Not on file documented as of this encounter Plan of Treatment Upcoming Encounters Date Type Department Care Team (Late st Contact Info) Description 07/04/2024 11:15 AM CDT Office Visit [facility] Heart and Vascular At [facility] [address] [facility] [address] [place] [address] Esteban Dueñas MD [facility] [address] [facility] [address] [place] [address] documented as of this encounter Visit Diagnoses Not on filedocumented in this encounter Care Teams Polisher Balance Screwhead Relationship Specialty Start Date End Date Vitaly Manzanares MD [address] [place] [address] PCP - General Family Practice 05/19/22 documented as of this encounter
--- OUTSIDE RECORDS SUMMARY | 2024-06-22 08:09 | XMS_ITS | Encounter Summary ---
Author Organization [facility] Address [address] [place] [address] Care Team Providers Care As400 Developer Name Role Phone Vitaly Manzanares MD Primary Care Provider Encounter Details Date Type Department Care Team (Late st Contact Info) Description 05/10/2002 Outpatient Historical [facility] Internal Medicine [id number] [place] [address] Gadiel Christensen MD [address] [place] [phone] Social History Tobacco Use Types Packs/Day Years Used Date Smoking Tobacco: Never Assessed Comments Unknown Sex and Gender Information Value Date Recorded Sex Assigned at Not on file Legal Sex Female 5:01 AM SELLING MANAGER Gender Identity Not on file Sexual Orientation Not on file documented as of this encounter Plan of Treatment Upcoming Encounters Date Type Department Care Team (Late st Contact Info) Description 07/04/2024 11:15 AM CDT Office Visit [facility] Heart and Vascular At [facility] [address] [facility] [address] [place] [address] Esteban Dueñas MD [facility] [address] [facility] [address] [place] [address] documented as of this encounter Visit Diagnoses Not on filedocumented in this encounter Care Teams As400 Developer Relationship Specialty Start Date End Date Vitaly Manzanares MD [address] [place] [address] PCP - General Family Practice 05/19/22 documented as of this encounter
--- OUTSIDE RECORDS SUMMARY | 2024-06-22 08:09 | XMS_ITS | Encounter Summary ---
Author Organization [facility] Address [address] [place] [address] Care Team Providers Care Automobile Service Station Attendant Name Role Phone Vitaly Manzanares MD Primary Care Provider [phone] Encounter Details Date Type Department Care Team (Late st Contact Info) Description 02/07/2002 Outpatient Historical [facility] Internal Medicine [address] [place] [address] Gadiel Christensen MD [address] [place] [phone] Social History Tobacco Use Types Packs/Day Years Used Date Smoking Tobacco: Never Assessed Comments Unknown Sex and Gender Information Value Date Recorded Sex Assigned at Not on file Legal Sex Female 5:01 AM FELT TIPPING 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 [address] [place] [address] documented as of this encounter Visit Diagnoses Not on filedocumented in this encounter Care Teams Automobile Service Station Attendant Relationship Specialty Start Date End Date Vitaly Manzanares MD [address] [place] [address] PCP - General Family Practice 05/19/22 documented as of this encounter
--- OUTSIDE RECORDS SUMMARY | 2024-06-22 08:09 | XMS_ITS | Encounter Summary ---
Author Organization [facility] Address [address] [place] [address] Care Team Providers Care Assembler Knife Name Role Phone Vitaly Manzanares MD Primary Care Provider [phone] Encounter Details Date Type Department Care Team (Late st Contact Info) Description 05/05/2002 Outpatient Historical [facility] Gadiel Andrade MD [address] [place] [phone] SCREENING MAMM-MAILG NEOPL-OTHER (Primary Dx) Social History Tobacco Use Types Packs/Day Years Used Date Smoking Tobacco: Never Assessed Comments Unknown Sex and Gender Information Value Date Recorded Sex Assigned at Not on file Legal Sex Female 5:01 AM WAX CUTTER Gender Identity Not on file Sexual Orientation Not on file documented as of this encounter Plan of Treatment Upcoming Encounters Date Type Department Care Team (Late st Contact Info) Description 07/04/2024 11:15 AM CDT Office Visit [facility] Heart and Vascular At [address] [place] [address] Esteban Dueñas MD [address] [place] [address] [address] [place] [address] documented as of this encounter Visit Diagnoses Diagnosis Other screening mammogram- Primary documented in this encounter Care Teams Assembler Knife Relationship Specialty Start Date End Date Vitaly Manzanares MD [address] [place] [address] PCP - General Family Practice 05/19/22 documented as of this encounter
--- OUTSIDE RECORDS SUMMARY | 2024-06-22 08:09 | XMS_ITS | Encounter Summary ---
Author Organization [facility] Address [address] [place] [address] Care Team Providers Care Stock Layer Name Role Phone Vitaly Manzanares MD Primary Care Provider Encounter Details Date Type Department Care Team (Late st Contact Info) Description 05/15/2002 Outpatient Historical [facility] Internal Medicine [address] [place] [address] Gadiel Christensen MD [address] [place] [phone] Social History Tobacco Use Types Packs/Day Years Used Date Smoking Tobacco: Never Assessed Comments Unknown Sex and Gender Information Value Date Recorded Sex Assigned at Not on file Legal Sex Female 5:01 AM ANESTHESIA DIRECTOR Gender Identity Not on file Sexual Orientation Not on file documented as of this encounter Plan of Treatment Upcoming Encounters Date Type Department Care Team (Late st Contact Info) Description 07/04/2024 11:15 AM CDT Office Visit [facility] Heart and Vascular At [facility] [address] [facility] [address] [place] [address] Esteban Dueñas MD [facility] [address] [facility] [address] [place] [address] documented as of this encounter Visit Diagnoses Not on filedocumented in this encounter Care Teams Stock Layer Relationship Specialty Start Date End Date Vitaly Manzanares MD [address] [place] [address] PCP - General Family Practice 05/19/22 documented as of this encounter
--- OUTSIDE RECORDS SUMMARY | 2024-06-22 08:09 | XMS_ITS | Encounter Summary ---
Author Organization [facility] Address [address] [place] [address] Care Team Providers Care Construction Superintendent Name Role Phone Vitaly Manzanares MD Primary Care Provider Encounter Details Date Type Department Care Team (Late st Contact Info) Description 06/09/2002 Outpatient Historical [facility] Internal Medicine [id number] [place] [address] Gadiel Christensen MD [address] [place] [phone] Social History Tobacco Use Types Packs/Day Years Used Date Smoking Tobacco: Never Assessed Comments Unknown Sex and Gender Information Value Date Recorded Sex Assigned at Not on file Legal Sex Female 5:01 AM SPORTS DIRECTOR Gender Identity Not on file Sexual Orientation Not on file documented as of this encounter Plan of Treatment Upcoming Encounters Date Type Department Care Team (Late st Contact Info) Description 07/04/2024 11:15 AM CDT Office Visit [facility] Heart and Vascular At [facility] [address] [facility] [address] [place] [address] Esteban Dueñas MD [facility] [address] [facility] [address] [place] [address] documented as of this encounter Visit Diagnoses Not on filedocumented in this encounter Care Teams Construction Superintendent Relationship Specialty Start Date End Date Vitaly Manzanares MD [address] [place] [address] PCP - General Family Practice 05/19/22 documented as of this encounter
--- OUTSIDE RECORDS SUMMARY | 2024-06-22 08:10 | XMS_ITS | Encounter Summary ---
Author Organization [facility] Address [address] [place] [address] Care Team Providers Care Supervisor Liquefaction Name Role Phone Vitaly Manzanares MD Primary Care Provider [phone] Encounter Details Date Type Department Care Team (Late st Contact Info) Description 03/30/2001 Outpatient Historical [facility] Internal Medicine [address] [place] [address] Gadiel Christensen MD [address] [place] [phone] Social History Tobacco Use Types Packs/Day Years Used Date Smoking Tobacco: Never Assessed Comments Unknown Sex and Gender Information Value Date Recorded Sex Assigned at Not on file Legal Sex Female 5:01 AM SANDER SETTER Gender Identity Not on file Sexual Orientation Not on file documented as of this encounter Plan of Treatment Upcoming Encounters Date Type Department Care Team (Late st Contact Info) Description 07/04/2024 11:15 AM CDT Office Visit [facility] Heart and Vascular At [facility] [address] [facility] [address] [place] [address] Esteban Dueñas MD [facility] [address] [facility] [address] [place] [address] documented as of this encounter Visit Diagnoses Not on filedocumented in this encounter Care Teams Supervisor Liquefaction Relationship Specialty Start Date End Date Vitaly Manzanares MD [address] [place] [address] PCP - General Family Practice 05/19/22 documented as of this encounter
--- OUTSIDE RECORDS SUMMARY | 2024-06-22 08:10 | XMS_ITS | Encounter Summary ---
Author Organization [facility] Address [address] [place] [address] Care Team Providers Care Vp Global Name Role Phone Vitaly Manzanares MD Primary Care Provider Encounter Details Date Type Department Care Team (Late st Contact Info) Description 05/27/2001 Outpatient Historical [facility] Internal Medicine [address] [place] [address] Gadiel Christensen MD [address] [place] [phone] Social History Tobacco Use Types Packs/Day Years Used Date Smoking Tobacco: Never Assessed Comments Unknown Sex and Gender Information Value Date Recorded Sex Assigned at Not on file Legal Sex Female 5:01 AM 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 BOILER 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 Gender Identity Not on file Sexual Orientation Not on file documented as of this encounter Plan of Treatment Upcoming Encounters Date Type Department Care Team (Late st Contact Info) Description 07/04/2024 11:15 AM CDT Office Visit [facility] Heart and Vascular At [facility] [address] [facility] [address] [place] [address] Esteban Dueñas MD [facility] [address] [facility] [address] [place] [address] documented as of this encounter Visit Diagnoses Not on filedocumented in this encounter Care Teams Vp Global Relationship Specialty Start Date End Date Vitaly Manzanares MD [address] [place] [address] PCP - General Family Practice 05/19/22 documented as of this encounter
--- OUTSIDE RECORDS SUMMARY | 2024-06-22 08:10 | XMS_ITS | Encounter Summary ---
Author Organization [facility] Address [address] [place] [address] Care Team Providers Care Rug Designer Name Role Phone Vitaly Manzanares MD Primary Care Provider Encounter Details Date Type Department Care Team (Late st Contact Info) Description 03/09/2006 Outpatient Historical [facility] Gadiel Christensen MD [address] [place] [phone] Essential Hypertension, Benign (Primary Dx) Social History Tobacco Use Types Packs/Day Years Used Date Smoking Tobacco: Never Assessed Comments Unknown Sex and Gender Information Value Date Recorded Sex Assigned at Not on file Legal Sex Female 5:01 AM ANCHORER Gender Identity Not on file Sexual Orientation Not on file documented as of this encounter Plan of Treatment Upcoming Encounters Date Type Department Care Team (Late Contact Info) Description 07/04/2024 11:15 AM CDT Office Visit [facility] Heart and Vascular At [address] [place] [address] Esteban Dueñas MD [address] [place] [address] [address] [place] [address] documented as of this encounter Procedures Procedure Name Priority Date/Time Associated Diagnosis Comments TSH REFLEXIVE Routine 03/09/2006 9:00 AM ANCHORER CBC WITH DIFFERENTIAL Routine 03/09/2006 9:00 AM ANCHORER CBC WITH DIFFERENTIAL Routine 03/09/2006 9:00 AM ANCHORER CANCER ANTIGEN 125 Routine 03/09/2006 9: 00 AM ANCHORER MAGNESIUM LEVEL Routine 03/09/2006 9:00 AM ANCHORER LIPID PANEL Routine 03/09/2006 9:00 AM ANCHORER COMPREHENSIVE METABOLIC PANEL Routine 03/09/2006 9:00 AM ANCHORER documented in this encounter Results * CBC WITH DIFFERENTIAL (03/09/2006 9:00 AM ANCHORER) NEUTROPHILS 54 45 - 70 % INTERFAC [...] 0.20 K/uL INTERFACE SYSTEM 03/09/2006 9:00 AM ANCHORER Gadiel Christensen MD HEMATOLOGY ORDERABLES Final Re sult INTERFACE SYSTEM Refer to clinic/hospital department * (ABNORMAL) CBC WITH DIFFERENTIAL (03/09/2006 9:00 AM ANCHORER) WBC 5.4 4.0 - 9.8 K/uL INTERFACE [...] 12.4 fL INTERFACE SYSTEM 03/09/2006 9:00 AM ANCHORER Gadiel Christensen MD HEMATOLOGY ORDERABLES Final Re sult Performing Organization Address [facility] Phone Number INTERFACE SYSTEM Refer to clinic/hospital department * TSH REFLEXIVE (03/09/2006 9:00 AM ANCHORER) TSH 1.82 0.27 - 4.20 uU/mL INTERFACE SYSTEM 03/09/2006 9:00 AM ANCHORER Gadiel Christensen MD CHEMISTRY ORDERABLES Final Res ult Performing Organization Address [facility] Phone Number INTERFACE SYSTEM Refer to clinic/hospital department * MAGNESIUM LEVEL (03/09/2006 9:00 AM ANCHORER) MAGNESIUM 1.8 1.5 - 2.5 mg/dL INTERFACE SYSTEM 03/09/2006 9:00 AM ANCHORER Gadiel Christensen MD CHEMISTRY ORDERABLES Final Res ult Performing Organization Address [facility] Phone Number INTERFACE SYSTEM Refer to clinic/hospital department * CANCER ANTIGEN 125 (03/09/2006 9:00 AM ANCHORER) CA 125 8 <=34 U/mL INTERFACE SYSTEM [...] a cancer screening test. 03/09/2006 9:00 AM ANCHORER Gadiel Christensen MD CHEMISTRY ORDERABLES Final Res ult Performing Organization Address [facility] Co de Phone Number INTERFACE SYSTEM Refer to clinic/hospital department * (ABNORMAL) LIPID PANEL (03/09/2006 9:00 AM ANCHORER) CHOLESTEROL 223(H) 100 - 199 mg/dL INTERFACE SYSTEM TRIGLYCERIDE 130 10 - 149 mg/dL INTERFACE SYSTEM HDL 83(H) 40 - 59 mg/dL INTERFACE SYSTEM CHOL/HDL RATIO 2.7 2.0 - 5.0 INTER FACE SYSTEM LDL CALCULATED 114(H) <=99 mg/dL INTERFACE SYSTEM LIPID PANEL COMMENT See Below INTERFACE SYSTEM Comment: The adult ATP and pediatric NCEP classifications for lipids are available on the [facility] Intranet at: [email or web address] Select: Lab Policies and Procedures Select: Reference Ranges - Lipids 03/09/2006 9:00 AM ANCHORER Gadiel Christensen MD CHEMISTRY ORDERABLES Final Res ult Performing Organization Address [facility] Co de Phone Number INTERFACE SYSTEM Refer to clinic/hospital department * COMPREHENSIVE METABOLIC PANEL (03/09/2006 9:00 AM ANCHORER) GLUCOSE 93 65 - 99 mg/dL INTERFACE [...] and non- Americans is available on the [facility] Intranet at: [email or web address] Select: Lab Policies and Procedures Select: Reference Ranges - GFR 03/09/2006 9:00 AM ANCHORER us Gadiel Christensen MD CHEMISTRY ORDERABLES Final Res ult INTERFACE SYSTEM Refer to clinic/hospital department documented in this encounter Visit Diagnoses Diagnosis Essential hypertension, benign- Primary documented in this encounter Care Teams Rug Designer Relationship Specialty Start Date End Date Vitaly Manzanares MD [address] [place] [address] PCP - General Family Practice 05/19/22 documented as of this encounter
--- OUTSIDE RECORDS SUMMARY | 2024-06-22 08:10 | XMS_ITS | Encounter Summary ---
Author Organization [facility] Address [address] [place] [address] Care Team Providers Care Car Framer Name Role Phone Vitaly Manzanares MD Primary Care Provider Encounter Details Date Type Department Care Team (Late st Contact Info) Description 01/28/[address] [facility] Internal Medicine [id number] [place] [address] Gadiel Christensen MD [address] [place] [phone] Social History Tobacco Use Types Packs/Day Years Used Date Smoking Tobacco: Never Assessed Comments Unknown Sex and Gender Information Value Date Recorded Sex Assigned at Not on file Legal Sex Female 5:01 AM SPEECH PATHOLOGIST Gender Identity Not on file Sexual Orientation Not on file documented as of this encounter Plan of Treatment Upcoming Encounters Date Type Department Care Team (Late st Contact Info) Description 07/04/2024 11:15 AM CDT Office Visit [facility] Heart and Vascular At [facility] [address] [facility] [address] [place] [address] Esteban Dueñas MD [facility] [address] [facility] [address] [place] [address] documented as of this encounter Visit Diagnoses Not on filedocumented in this encounter Care Teams Car Framer Relationship Specialty Start Date End Date Vitaly Manzanares MD [address] [place] [address] PCP - General Family Practice 05/19/22 documented as of this encounter
--- OUTSIDE RECORDS SUMMARY | 2024-06-22 08:10 | XMS_ITS | Encounter Summary ---
Author Organization [facility] Address [address] [place] [address] Care Team Providers Care Appian Bpm Developer Name Role Phone Vitaly Manzanares MD Primary Care Provider Encounter Details Date Type Department Care Team (Late st Contact Info) Description 06/15/2003 Outpatient Historical [facility] Internal Medicine [address] [place] [address] Gadiel Christensen MD [address] [place] [phone] Social History Tobacco Use Types Packs/Day Years Used Date Smoking Tobacco: Never Assessed Comments Unknown Sex and Gender Information Value Date Recorded Sex Assigned at Not on file Legal Sex Female 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 Gender Identity Not on file Sexual Orientation Not on file documented as of this encounter Plan of Treatment Upcoming Encounters Date Type Department Care Team (Late st Contact Info) Description 07/04/2024 11:15 AM CDT Office Visit [facility] Heart and Vascular At [facility] [address] [facility] [address] [place] [address] Esteban Dueñas MD [facility] [address] [facility] [address] [place] [address] documented as of this encounter Visit Diagnoses Not on filedocumented in this encounter Care Teams Appian Bpm Developer Relationship Specialty Start Date End Date Vitaly Manzanares MD [address] [place] [address] PCP - General Family Practice 05/19/22 documented as of this encounter
--- OUTSIDE RECORDS SUMMARY | 2024-06-22 08:10 | XMS_ITS | Encounter Summary ---
Author Organization [facility] Address [address] [place] [address] Care Team Providers Care Automotive Parts Salesperson Name Role Phone Vitaly Manzanares MD Primary Care Provider Encounter Details Date Type Department Care Team (Late st Contact Info) Description 10/30/2003 Outpatient Historical [facility] Internal Medicine [address] [place] [address] Gadiel Christensen MD [address] [place] [phone] Social History Tobacco Use Types Packs/Day Years Used Date Smoking Tobacco: Never Assessed Comments Unknown Sex and Gender Information Value Date Recorded Sex Assigned at Not on file Legal Sex Female 5:01 AM TOOL ROOM ATTENDANT Gender Identity Not on file Sexual Orientation Not on file documented as of this encounter Plan of Treatment Upcoming Encounters Date Type Department Care Team (Late st Contact Info) Description 07/04/2024 11:15 AM CDT Office Visit [facility] Heart and Vascular At [facility] [address] [facility] [address] [place] [address] Esteban Dueñas MD [facility] [address] [facility] [address] [place] [address] documented as of this encounter Visit Diagnoses Not on filedocumented in this encounter Care Teams Automotive Parts Salesperson Relationship Specialty Start Date End Date Vitaly Manzanares MD [address] [place] [address] PCP - General Family Practice 05/19/22 documented as of this encounter
--- OUTSIDE RECORDS SUMMARY | 2024-06-22 08:10 | XMS_ITS | Encounter Summary ---
Author Organization [facility] Address [address] [place] [address] Care Team Providers Care Radiation Oncology Nurse Name Role Phone Vitaly Manzanares MD Primary Care Provider [phone] Encounter Details Date Type Department Care Team (Late st Contact Info) Description 07/18/2001 Outpatient Historical [facility] Internal Medicine [address] [place] [address] Gadiel Christensen MD [address] [place] [phone] Social History Tobacco Use Types Packs/Day Years Used Date Smoking Tobacco: Never Assessed Comments Unknown Sex and Gender Information Value Date Recorded Sex Assigned at Not on file Legal Sex Female 5:01 AM DIRECTOR APPOINTMENT Gender Identity Not on file Sexual Orientation Not on file documented as of this encounter Plan of Treatment Upcoming Encounters Date Type Department Care Team (Late st Contact Info) Description 07/04/2024 11:15 AM CDT Office Visit [facility] Heart and [facility] At [facility] [address] [facility] [facility] [address] [place] [address] Esteban Dueñas MD [facility] [address] [facility] [address] [place] [address] documented as of this encounter Visit Diagnoses Not on filedocumented in this encounter Care Teams Radiation Oncology Nurse Relationship Specialty Start Date End Date Vitaly Manzanares MD [address] [place] [address] PCP - General Family Practice 05/19/22 documented as of this encounter
--- OUTSIDE RECORDS SUMMARY | 2024-06-22 08:10 | XMS_ITS | Encounter Summary ---
Author Organization [facility] Address [address] [place] [address] Care Team Providers Care Grocery Clerk Checking Name Role Phone Vitaly Manzanares MD Primary Care Provider [phone] Encounter Details Date Type Department Care Team (Late st Contact Info) Description 05/06/2004 Outpatient Historical [facility] Gadiel Andrade MD [address] [place] [phone] ABNORMAL FINDING-SKULL & HEAD (Primary Dx) Social History Tobacco Use Types Packs/Day Years Used Date Smoking Tobacco: Never Assessed Comments Unknown Sex and Gender Information Value Date Recorded Sex Assigned at Not on file Legal Sex Female 5:01 AM MANAGER BRANCH Gender Identity Not on file Sexual Orientation Not on file documented as of this encounter Plan of Treatment Upcoming Encounters Date Type Department Care Team (Late Contact Info) Description 07/04/2024 11:15 AM CDT Office Visit [facility] Heart and Vascular At [address] [place] [address] Esteban Dueñas MD [address] [place] [address] [address] [place] [address] documented as of this encounter Visit Diagnoses Diagnosis Nonspecific (abnormal) findings on radiological and other examination of skull and head- Primary documented in this encounter Care Teams Grocery Clerk Checking Relationship Specialty Start Date End Date Vitaly Manzanares MD [address] [place] [address] PCP - General Family Practice 05/19/22 documented as of this encounter
--- OUTSIDE RECORDS SUMMARY | 2024-06-22 08:10 | XMS_ITS | Encounter Summary ---
Author Organization [facility] Address [address] [place] [address] Care Team Providers Care Cashier Associate Name Role Phone Vitaly Manzanares MD Primary Care Provider Encounter Details Date Type Department Care Team (Late st Contact Info) Description 06/28/2006 Outpatient Historical [facility] Internal Medicine [address] [place] [address] Gadiel Christensen MD [address] [place] [phone] Social History Tobacco Use Types Packs/Day Years Used Date Smoking Tobacco: Never Assessed Comments Unknown Sex and Gender Information Value Date Recorded Sex Assigned at Not on file Legal Sex Female 5:01 AM RN TRIAGE Gender Identity Not on file Sexual Orientation Not on file documented as of this encounter Plan of Treatment Upcoming Encounters Date Type Department Care Team (Late st Contact Info) Description 07/04/2024 11:15 AM CDT Office Visit [facility] Heart and Vascular At [facility] [address] [facility] [address] [place] [address] Esteban Dueñas MD [facility] [address] [facility] [address] [place] [address] documented as of this encounter Visit Diagnoses Not on filedocumented in this encounter Care Teams Cashier Associate Relationship Specialty Start Date End Date Vitaly Manzanares MD [address] [place] [address] PCP - General Family Practice 05/19/22 documented as of this encounter
--- OUTSIDE RECORDS SUMMARY | 2024-06-22 08:10 | XMS_ITS | Encounter Summary ---
Author Organization [facility] Address [address] [place] [address] Care Team Providers Care Engine House Helper Name Role Phone Vitaly Manzanares MD Primary Care Provider Encounter Details Date Type Department Care Team (Late st Contact Info) Description 06/04/2005 Outpatient Historical [facility] Internal Medicine [address] [place] [address] Gadiel Christensen MD [address] [place] [phone] Social History Tobacco Use Types Packs/Day Years Used Date Smoking Tobacco: Never Assessed Comments Unknown Sex and Gender Information Value Date Recorded Sex Assigned at Not on file Legal Sex Female 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 Gender Identity Not on file Sexual Orientation Not on file documented as of this encounter Plan of Treatment Upcoming Encounters Date Type Department Care Team (Late st Contact Info) Description 07/04/2024 11:15 AM CDT Office Visit [facility] Heart and Vascular At [facility] [address] [facility] [address] [place] [address] Esteban Dueñas MD [facility] [address] [facility] [address] [place] [address] documented as of this encounter Visit Diagnoses Not on filedocumented in this encounter Care Teams Engine House Helper Relationship Specialty Start Date End Date Vitaly Manzanares MD [address] [place] [address] PCP - General Family Practice 05/19/22 documented as of this encounter
--- OUTSIDE RECORDS SUMMARY | 2024-06-22 08:10 | XMS_ITS | Encounter Summary ---
Author Organization [facility] Address [address] [place] [address] Care Team Providers Care Drawer Hardware Worker Name Role Phone Vitaly Manzanares MD Primary Care Provider Encounter Details Date Type Department Care Team (Late st Contact Info) Description 05/05/2004 Outpatient Historical [facility] Internal Medicine [address] [place] [address] Gadiel Christensen MD [address] [place] [phone] Social History Tobacco Use Types Packs/Day Years Used Date Smoking Tobacco: Never Assessed Comments Unknown Sex and Gender Information Value Date Recorded Sex Assigned at Not on file Legal Sex Female 5:01 AM SOCIAL SERVICE LIAISON Gender Identity Not on file Sexual Orientation Not on file documented as of this encounter Plan of Treatment Upcoming Encounters Date Type Department Care Team (Late st Contact Info) Description 07/04/2024 11:15 AM CDT Office Visit [facility] Heart and Vascular At [facility] [address] [facility] [address] [place] [address] Esteban Dueñas MD [facility] [address] [facility] [address] [place] [address] documented as of this encounter Visit Diagnoses Not on filedocumented in this encounter Care Teams Drawer Hardware Worker Relationship Specialty Start Date End Date Vitaly Manzanares MD [address] [place] [address] PCP - General Family Practice 05/19/22 documented as of this encounter
--- OUTSIDE RECORDS SUMMARY | 2024-06-22 08:10 | XMS_ITS | Encounter Summary ---
Author Organization [facility] Address 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 Gender Identity Not on file Sexual Orientation Not on file documented as of this encounter Plan of Treatment Upcoming Encounters Date Type Department Care Team (Late st Contact Info) Description 07/04/2024 11:15 AM CDT Office Visit [facility] Heart and Vascular At [place] [address] [facility] [address] [place] [address] Esteban Dueñas MD [address] [place] [address] [address] [place] [address] documented as of this encounter Visit Diagnoses Not on filedocumented in this encounter Care Teams Sterile Technician Relationship Specialty Start Date End Date Vitaly Manzanares MD [address] [place] [phone] PCP - General Family Practice 05/19/22 documented as of this encounter
--- OUTSIDE RECORDS SUMMARY | 2024-06-22 08:10 | XMS_ITS | Encounter Summary ---
Author Organization [facility] Address [address] [place] [address] Care Team Providers Care Seismic Survey Assistant Name Role Phone Vitaly Manzanares MD Primary Care Provider Encounter Details Date Type Department Care Team (Late st Contact Info) Description 08/29/2003 Outpatient Historical [facility] Internal Medicine [address] [place] [address] Gadiel Christensen MD [address] [place] [phone] Social History Tobacco Use Types Packs/Day Years Used Date Smoking Tobacco: Never Assessed Comments Unknown Sex and Gender Information Value Date Recorded Sex Assigned at Not on file Legal Sex Female 5:01 AM DRIVERS' CASH CLERK Gender Identity Not on file Sexual Orientation Not on file documented as of this encounter Plan of Treatment Upcoming Encounters Date Type Department Care Team (Late st Contact Info) Description 07/04/2024 11:15 AM CDT Office Visit [facility] Heart and Vascular At [facility] [address] [facility] [address] [place] [address] Esteban Dueñas MD [facility] [address] [facility] [address] [place] [address] documented as of this encounter Visit Diagnoses Not on filedocumented in this encounter Care Teams Seismic Survey Assistant Relationship Specialty Start Date End Date Vitaly Manzanares MD [address] [place] [address] PCP - General Family Practice 05/19/22 documented as of this encounter
--- OUTSIDE RECORDS SUMMARY | 2024-06-22 08:10 | XMS_ITS | Encounter Summary ---
Author Organization [facility] Address [address] [place] [address] Care Team Providers Care Metal Molder Name Role Phone Vitaly Manzanares MD Primary Care Provider [phone] Encounter Details Date Type Department Care Team (Latest Contact Info) Description 06/07/2004 Outpatient Historical [facility] Gadiel Christensen MD [address] [place] [phone] DISC DEGENERATION NOS (Primary Dx) Social History Tobacco Use Types Packs/Day Years Used Date Smoking Tobacco: Never Assessed Comments Unknown Sex and Gender Information Value Date Recorded Sex Assigned at Not on file Legal Sex Female 5:01 AM OPERATIONS SUPPORT MANAGER Gender Identity Not on file Sexual Orientation Not on file documented as of this encounter Plan of Treatment Upcoming Encounters Date Type Department Care Team (Late st Contact Info) Description 07/04/2024 11:15 AM CDT Office Visit [facility] Heart and Vascular At [facility] [address] [facility] [address] [place] [address] Esteban Dueñas MD [facility] [address] [facility] [address] [place] [address] documented as of this encounter Visit Diagnoses Diagnosis Degeneration of intervertebral disc, site unspecified- Primary documented in this encounter Care Teams Metal Molder Relationship Specialty Start Date End Date Vitaly Manzanares MD [address] [place] [address] PCP - General Family Practice 05/19/22 documented as of this encounter
--- OUTSIDE RECORDS SUMMARY | 2024-06-22 08:10 | XMS_ITS | Encounter Summary ---
Author Organization [facility] Address [address] [place] [address] Care Team Providers Care Paint Striping Machine Operator Name Role Phone Vitaly Manzanares MD Primary Care Provider Encounter Details Date Type Department Care Team (Late st Contact Info) Description 03/27/2004 Outpatient Historical [facility] Gadiel Christensen MD [address] [place] [phone] CHRONIC SINUSITIS NOS (Primary Dx) Social History Tobacco Use Types Packs/Day Years Used Date Smoking Tobacco: Never Assessed Comments Unknown Sex and Gender Information Value Date Recorded Sex Assigned at Not on file Legal Sex Female 5:01 AM IT COMPLIANCE MANAGER Gender Identity Not on file Sexual Orientation Not on file documented as of this encounter Plan of Treatment Upcoming Encounters Date Type Department Care Team (Late st Contact Info) Description 07/04/2024 11:15 AM CDT Office Visit [facility] Heart and Vascular At [address] [place] [address] Esteban Dueñas MD [address] [place] [address] [address] [place] [address] documented as of this encounter Visit Diagnoses Diagnosis Unspecified sinusitis (chronic)- Primary documented in this encounter Care Teams Paint Striping Machine Operator Relationship Specialty Start Date End Date Vitaly Manzanares MD [address] [place] [address] PCP - General Family Practice 05/19/22 documented as of this encounter
--- OUTSIDE RECORDS SUMMARY | 2024-06-22 08:10 | XMS_ITS | Encounter Summary ---
Author Organization [facility] Address [address] [place] [address] Care Team Providers Care Handle Turner Name Role Phone Vitaly Manzanares MD Primary Care Provider Encounter Details Date Type Department Care Team (Late st Contact Info) Description 01/26/2006 Outpatient Historical [facility] Internal Medicine [address] [place] [address] Gadiel Christensen MD [address] [place] [phone] Social History Tobacco Use Types Packs/Day Years Used Date Smoking Tobacco: Never Assessed Comments Unknown Sex and Gender Information Value Date Recorded Sex Assigned at Not on file Legal Sex Female 5:01 AM EDUCATION INTERN Gender Identity Not on file Sexual Orientation Not on file documented as of this encounter Plan of Treatment Upcoming Encounters Date Type Department Care Team (Late st Contact Info) Description 07/04/2024 11:15 AM CDT Office Visit [facility] Heart and Vascular At [facility] [address] [facility] [address] [place] [address] Esteban Dueñas MD [facility] [address] [facility] [address] [place] [address] documented as of this encounter Visit Diagnoses Not on filedocumented in this encounter Care Teams Handle Turner Relationship Specialty Start Date End Date Vitaly Manzanares MD [address] [place] [address] PCP - General Family Practice 05/19/22 documented as of this encounter
--- OUTSIDE RECORDS SUMMARY | 2024-06-22 08:10 | XMS_ITS | Encounter Summary ---
Author Organization [facility] Address [address] [place] [address] Care Team Providers Care Fire Patroller Name Role Phone Vitaly Manzanares MD Primary Care Provider Encounter Details Date Type Department Care Team (Late st Contact Info) Description 06/22/2005 Outpatient Historical [facility] Internal Medicine [address] [place] [address] Gadiel Christensen MD [address] [place] [phone] Social History Tobacco Use Types Packs/Day Years Used Date Smoking Tobacco: Never Assessed Comments Unknown Sex and Gender Information Value Date Recorded Sex Assigned at Not on file Legal Sex Female 5:01 AM BLACKSMITH FARM Gender Identity Not on file Sexual Orientation Not on file documented as of this encounter Plan of Treatment Upcoming Encounters Date Type Department Care Team (Late st Contact Info) Description 07/04/2024 11:15 AM CDT Office Visit [facility] Heart and Vascular At [facility] [address] [facility] [address] [place] [address] Esteban Dueñas MD [facility] [address] [facility] [address] [place] [address] documented as of this encounter Visit Diagnoses Not on filedocumented in this encounter Care Teams Fire Patroller Relationship Specialty Start Date End Date Vitaly Manzanares MD [address] [place] [phone] PCP - General Family Practice 05/19/22 documented as of this encounter
--- OUTSIDE RECORDS SUMMARY | 2024-06-22 08:10 | XMS_ITS | Encounter Summary ---
Author Organization [facility] Address [address] [place] [address] Care Team Providers Care Construction Engineering Manager Name Role Phone Vitaly Manzanares MD Primary Care Provider Encounter Details Date Type Department Care Team (Late st Contact Info) Description 11/07/2001 Outpatient Historical [facility] Internal Medicine [address] [place] [address] Gadiel Christensen MD [address] [place] [phone] Social History Tobacco Use Types Packs/Day Years Used Date Smoking Tobacco: Never Assessed Comments Unknown Sex and Gender Information Value Date Recorded Sex Assigned at Not on file Legal Sex Female 5:01 AM TAR MAN Gender Identity Not on file Sexual Orientation Not on file documented as of this encounter Plan of Treatment Upcoming Encounters Date Type Department Care Team (Late st Contact Info) Description 07/04/2024 11:15 AM CDT Office Visit [facility] Heart and Vascular At [facility] [address] [facility] [address] [place] [address] Esteban Dueñas MD [facility] [address] [facility] [address] [place] [address] documented as of this encounter Visit Diagnoses Not on filedocumented in this encounter Care Teams Construction Engineering Manager Relationship Specialty Start Date End Date Vitaly Manzanares MD [address] [place] [phone] PCP - General Family Practice 05/19/22 documented as of this encounter
--- OUTSIDE RECORDS SUMMARY | 2024-06-22 08:10 | XMS_ITS | Encounter Summary ---
Author Organization [facility] Address [address] [place] [address] Care Team Providers Care University Tutor Name Role Phone Vitaly Manzanares MD Primary Care Provider Encounter Details Date Type Department Care Team (Late Contact Info) Description 12/30/2001 Outpatient Historical [facility] Internal Medicine [place] [address] [place] [address] Esteban Otto MD [address] [place] [address] Social History Tobacco Use Types Packs/Day Years Used Date Smoking Tobacco: Never Assessed Comments Unknown Sex and Gender Information Value Date Recorded Sex Assigned at Not on file Legal Sex Female 5:01 AM ENGINEERING GROUP LEADER Gender Identity Not on file Sexual Orientation Not on file documented as of this encounter Plan of Treatment Upcoming Encounters Date Type Department Care Team (Late Contact Info) Description 07/04/2024 11:15 AM CDT Office Visit [facility] Heart and Vascular At [place] [address] [facility] [address] [place] [address] Esteban Dueñas MD [facility] [address] [facility] [address] [place] [address] documented as of this encounter Visit Diagnoses Not on filedocumented in this encounter Care Teams University Tutor Relationship Specialty Start Date End Date Vitaly Manzanares MD [address] [place] [address] PCP - General Family Practice 05/19/22 documented as of this encounter
--- OUTSIDE RECORDS SUMMARY | 2024-06-22 08:10 | XMS_ITS | Encounter Summary ---
Author Organization [facility] Address [address] [place] [address] Care Team Providers Care Epic Cadence Analyst Name Role Phone Vitaly Manzanares MD Primary Care Provider Encounter Details Date Type Department Care Team (Latest Contact Info) Description 10/02/2005 Outpatient Historical [facility] [place] [facility] Gadiel Christensen MD [address] [place] [phone] Hypopotassemia (Primary Dx) Social History Tobacco Use Types Packs/Day Years Used Date Smoking Tobacco: Never Assessed Comments Unknown Sex and Gender Information Value Date Recorded Sex Assigned at Not on file Legal Sex Female 5:01 AM FIREFIGHTER Gender Identity Not on file Sexual Orientation Not on file documented as of this encounter Plan of Treatment Upcoming Encounters Date Type Department Care Team (Late st Contact Info) Description 07/04/2024 11:15 AM CDT Office Visit [facility] Heart and Vascular At [address] [place] [address] Esteban Dueñas MD [address] [place] [address] [address] [place] [address] documented as of this encounter [...] INTERFACE SYSTEM Comment: [facility] test performed by: [facility] [id number] [place] [id number] DEMAR BUCK MD 10/02/2005 3:26 PM CDT Gadiel Christensen MD CHEMISTRY ORDERABLES COM Final Result Performing Organization Address City/[facility] de Phone Number INTERFACE SYSTEM Refer to clinic/hospital department * MAGNESIUM LEVEL (10/02/2005 3:26 PM CDT) MAGNESIUM 1.7 1.5 - 2.5 mg/dL INTERFACE SYSTEM 10/02/2005 3:26 PM CDT Gadiel Christensen MD CHEMISTRY ORDERABLES Final Res ult Performing Organization Address [facility] de Phone Number INTERFACE SYSTEM Refer [...] ORDERABLES Final Res ult Performing Organization Address City/[facility] Co de Phone Number INTERFACE SYSTEM Refer to clinic/hospital department documented in this encounter Visit Diagnoses Diagnosis Hypopotassemia- Primary documented in this encounter Care Teams Epic Cadence Analyst Relationship Specialty Start Date End Date Vitaly Manzanares MD [address] [place] [address] PCP - General Family Practice 05/19/22 documented as of this encounter
--- OUTSIDE RECORDS SUMMARY | 2024-06-22 08:10 | XMS_ITS | Encounter Summary ---
Author Organization [facility] Address 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 Gender Identity Not on file Sexual Orientation Not on file documented as of this encounter Plan of Treatment Upcoming Encounters Date Type Department Care Team (Late st Contact Info) Description 07/04/2024 11:15 AM CDT Office Visit [facility] Heart and Vascular At [place] [address] [facility] [address] [place] [address] Esteban Dueñas MD [address] [place] [address] [address] [place] [address] documented as of this encounter Visit Diagnoses Not on filedocumented in this encounter Care Teams Side Seam Machine Operator Relationship Specialty Start Date End Date Vitaly Manzanares MD [address] [place] [phone] PCP - General Family Practice 05/19/22 documented as of this encounter
--- OUTSIDE RECORDS SUMMARY | 2024-06-22 08:10 | XMS_ITS | Encounter Summary ---
Author Organization [facility] Address [address] [place] [address] Care Team Providers Care Tube Tester Name Role Phone Vitaly Manzanares MD Primary Care Provider [phone] Encounter Details Date Type Department Care Team (Late st Contact Info) Description 11/27/2003 Outpatient Historical [facility] Internal Medicine [place] [address] [place] [address] Gadiel Christensen MD [address] [place] [phone] Social History Tobacco Use Types Packs/Day Years Used Date Smoking Tobacco: Never Assessed Comments Unknown Sex and Gender Information Value Date Recorded Sex Assigned at Not on file Legal Sex Female 5:01 AM PENSION AGENT Gender Identity Not on file Sexual Orientation Not on file documented as of this encounter Plan of Treatment Upcoming Encounters Date Type Department Care Team (Late st Contact Info) Description 07/04/2024 11:15 AM CDT Office Visit [facility] Heart and Vascular At [facility] [address] [facility] [address] [place] [address] Esteban Dueñas MD [facility] [address] [facility] [address] [place] [address] documented as of this encounter Visit Diagnoses Not on filedocumented in this encounter Care Teams Tube Tester Relationship Specialty Start Date End Date Vitaly Manzanares MD [address] [place] [address] PCP - General Family Practice 05/19/22 documented as of this encounter
--- OUTSIDE RECORDS SUMMARY | 2024-06-22 08:10 | XMS_ITS | Clinical Summary ---
Author Organization [facility] Address [address] [place] [address] Care Team Providers Care Retail Analytics Manager Name Role Phone Vitaly Manzanares MD Primary Care Provider [phone] Allergies Active Allergy Reactions Criticality Noted Date [...] Breath/Wheezing,Rash High 02/24/2016 Naratriptan Rash Low 04/22/2007 Howqrcjnoxjf-Zbe-Ifojmbes Unknown 04/22/2007 Oseltamivir Phosphate Rash Low 04/22/2007 Penicillins Unknown 04/22/2007 As a child Pneumococcal Vaccine Anaphylaxis,Rash High 1 Prochlorperazine Edisylate Unknown 8 Propoxyphene Rash Low 04/22/2007 [place] Anaphylaxis,Shortnes s of Breath/Wheezing High 02/24/2016 Sulfa [...] Not taking Active fluticasone (FLONASE) 50 mcg/spray [place], Suspension USE TWO SPRAYS IN EACH NOSTRIL [...] 200 mg CapsuleIndication s: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 [facility] Full Review 02/25/16 tn Esteban Dueñas MD--Recreation Instructor ([facility] V[facility] @ ) Problem Noted Date Diagnosed Date Age-related osteoporosis, T -3.7 R fem neck Barry h 202006/30/2020 Allergy to influenza vaccine 02/20/2020 Allergy to Streptococcus pneumoniae vaccine 10/2019 Chronic fatigue 02/12/2020 Left ventricular systolic dysfunction, NYHA clas s 2 01/11/2017 S/P coronary artery stents p lacement, 02/26/16, 11/13/16, 05/19/22, 01/05, 02/23/24 12/07/2016 Coronary artery disease of n ative artery of [place] heart with stable angina pectoris 06/09/2016 Aspirin [...] Type Department Care Team Description 05/28/2024 Refill [facility] Heart and Vascular At [address] [place] [address] Esteban Dueñas MD 04/29/2024 Refill [facility] Heart and Vascular At [address] [place] [address] Esteban Dueñas MD Mixed hyperlipidemia 04/22/2024 Refill [facility] [address] [address] [place] [address] Esteban Dueñas MD 04/11/2024 External Device Data STL ABSTRACTION Provider, Abstract 04/05/2024 External Device Data STL ABSTRACTION Provider, Abstract 04/05/2024 External Device Data STL ABSTRACTION Provider, Abstract 04/05/2024 Telephone [facility] Heart and Vascular - [facility] [address] [place] [address] Esteban Dueñas MD Release to return to Cardiac rehab 04/03/2024 11:00 AM ELASTIC TAPE INSERTER Video Visit [facility] Heart and Vascular At [address] [place] [address] Esteban Dueñas MD Coronary artery disease of [place] artery of [place] heart with stable angina pectoris (Primary Dx); Left ventricular systolic dysfunction, NYHA class 2; Pure hypercholesterolemia; Essential hypertension; S/P coronary artery stents placement, 02/26/16, 11/13/16, 05/19/22, 01/05, 02/23/24; Allergic reaction to dye, subsequent encounter 04/01/2024 Refill [facility] Heart and Vascular At [address] [place] [address] Esteban Dueñas MD Essential hypertension (Primary Dx) 03/28/2024 Refill [facility] Heart and Vascular At [address] [place] [address] Esteban Dueñas MD from Last 3 Months [...] on file Legal Sex Female 5:01 AM ELASTIC TAPE INSERTER Gender Identity Not on file Sexual Orientation Not on file Occupation Industry Job Start Date Job End Date Not on file Not on file Not on file Not on file Last Filed Vital Signs Vital Sign Reading Time Taken Comments Blood Pressure 125/78 04/03/2024 10:37 AM ELASTIC TAPE INSERTER Pulse 89 04/03/2024 10:37 AM ELASTIC TAPE INSERTER Temperature 36.6 C (97.9 F) 04/03/2024 10:37 AM ELASTIC TAPE INSERTER Respiratory Rate 18 02/23/2024 12:00 PM ELASTIC TAPE INSERTER Oxygen Saturation 98% 04/03/2024 10:37 AM ELASTIC TAPE INSERTER Inhaled Oxygen Concentration - - Weight 49.4 kg (109 lb) 04/03/2024 10:37 AM ELASTIC TAPE INSERTER Height 152.4 cm (5') 04/03/2024 10:37 AM ELASTIC TAPE INSERTER Body Mass Index 21.29 04/03/2024 10:37 AM ELASTIC TAPE INSERTER Plan of Treatment Upcoming Encounters Date Type Department Care Team (Late st Contact Info) Description 07/04/2024 11:15 AM CDT Office Visit [facility] Heart and Vascular At [place] [address] [facility] [address] [place] [address] Esteban Dueñas MD [facility] [address] [facility] [address] [place] [address] Health Maintenance Due Date Last [...] exists INFLUENZA VACCINE (#1) 2023 Medicare Advantage (MD) Preventative Visit/Annual Wellness Visit 03/15/2024 02/20/2020, 11/29/2017, 12/24/2014, Additional history exists OSTEOPOROSIS SCREENING Completed 06/27/2020, 2020 Medical Devices Implanted Type Area Economics Consultant Device Identifier Shelf Expiration Date Model / Serial / Lot Daniele- 016 Implanted:Qty : 1 on 02/26/2016 by Rony Deleon MD Stent Coronary [employer] 02/11/2017 / / [id number] Description:bare metal stent placed in the obtuse marginal coronary artery number 1 Daniele- 016 Implanted:Qty : 1 on 02/26/2016 by Rony Deleon MD Stent Coronary [employer] 05/12/2018 / / [id number] Description:bare metal stent placed in the right coronary artery Daniele- 016 Implanted:Qty : 1 on 02/26/2016 by Rony Deleon MD Stent Coronary [employer] 04/14/2017 / / [id number] Description:bare metal stent placed in the right coronary artery Promus Premier- 017 Implanted:03/2016 by Arslan Gale MD (Quantity not on file) Stent [employer] 09/28/2017 / / [id number] Description:OM1 Promus Premier- 017 Implanted:03/2016 by Arslan Gale MD (Quantity not on file) Stent [employer] 09/28/2017 / / [id number] Description:RCA Promus Premier- 017 Implanted:03/2016 by Arslan Gale MD (Quantity not on file) Stent [employer] 02/14/2018 / / [id number] Description:rca Stent Synergy Xd 3.0x12mm Evrlms Elut [id number] - [id number] Implanted:Qty : 1 on 05/19/2022 by Conor Grimm MD at [facility] Stent Right: Coronary [employer] 12/15/2023 [id number] / / [id number] Stent Dany [place] Temo 3.0x18mm Rx [id number] - [id number] Implanted:Qty : 1 on 12/17/2023 by Conor Grimm MD at [facility] Stent Right: Coronary [employer] [id number] 02/03/2026 [id number] 18UX / / [id number] Stent [place] Temo 3.62w33sn Rx [id number] - [id number] Implanted:Qty : 1 on 02/23/2024 by Conor Grimm MD at [facility] Stent N/A: Coronary [employer] [id number] 04/26/2026 [id number] 15UX / / [id number] Procedures Procedure Name Priority Date/Time Associated [...] 1 OR MORE SITES (06/27/2020) [facility] T-SCORE FEMUR (LEFT) [facility] T-SCORE FEMUR (RIGHT) [facility] T-SCORE FEMUR NECK [facility] T-SCORE FEMORAL NECK (LEFT) [facility] T-SCORE FEMORAL NECK (RIGHT) [facility] [place] T-SCORE HEEL [facility] T-SCORE HEEL (LEFT) [facility] T-SCORE HEEL (RIGHT) [facility] T-SCORE [facility] T-SCORE H[facility] (LEFT) [facility] T-SCORE HIP (RIGHT) [facility] T-SCORE WRIST [facility] T-SCORE WRIST (LEFT) [facility] T-SCORE WRIST (RIGHT) [facility] T-SCORE SPINE [facility] [place] Anatomical Region Laterality Modality Other us Esteban Casanova MD DIAGNOSTIC IMAGING ORD ERABLES Final Result * COLON CANCER SCREEN, STOOL DNA (10/17/2018 12:16 PM CDT) COLOGUARD RESULT Negative Not Applicable [facility] Comment: A negative result indicates [...] Ordaz et al, N Engl J Med 2014;370(14):8934-6274) COLOGUARD RE-SCREENING RECOMMENDATION: Periodic routine colorectal cancer screening is an important part of preventive healthcare for asymptomatic persons at average risk for colorectal cancer. Following a negative Cologuard result, the [place] Cancer Society and U.S. Multi-Society Task Force screening guidelines recommend a Cologuard re-screening interval of 3 years. References: [place] Cancer Society (ACS). Colorectal cancer prevention and early detection. [place], [place]: [place] Cancer Society; [updated 2015Jul 06]. https://www.cancer.org/cancer/krjfw-paoqjz-ocnhcd/azloerslw-ndcaklcau-yggexsf/ac s-rec ommendations.html. Accessed November 12, 2017; Brayden DK, Amanda CR, Jacquie HenryK, Colorectal Cancer Screening: Recommendations for Physicians and Patients from the U.S. Multi-Society Task Force on Colorectal Cancer Screening, Am J Gastroenterology 2017; 112:7664-2086. Test Type: Composite algorithmic analysis of stool [...] can be accessed at the following location: www.[employer]/results. Additional description of the Cologuard test process, warnings and precautions can be found at www.cologuardtest.com. Rx Only. Stool STOOL SPECIMEN / Unknown 10/17/2018 12:16 PM CDT 10/18/2018 7:16 PM CDT Esteban Casanova MD BODY FLUIDS AND STOOLS Final Result [employer] CLIA # [id number] [address] [facility] [place] [address] from Last 3 Months or Most Recently Relevant to Health Maintenance Insurance RX AETNA Medicare Part D AETNA O [facility] Advance Directives For more information, please contact: [phone] Documents on File Type Date Recorded Patient Unified Communications Architect Expl anation Advance Directive POA 08/31/2023 3:26 [...] 8:37 AM 11/13/2016 12:58 PM Care Teams Retail Analytics Manager Relationship Specialty Start Date End Date Vitaly Manzanares MD [address] [place] [address] PCP - General Family Practice 05/19/22
--- OUTSIDE RECORDS SUMMARY | 2024-06-22 08:10 | XMS_ITS | Encounter Summary ---
Author Organization [facility] Address [address] [place] [address] Care Team Providers Care Customer Success Associate Name Role Phone Vitaly Manzanares MD Primary Care Provider Encounter Details Date Type Department Care Team (Late st Contact Info) Description 05/19/2004 Outpatient Historical [facility] Gadiel Christensen MD [address] [place] [phone] ABNORMAL FINDING-SKULL & HEAD (Primary Dx) Social History Tobacco Use Types Packs/Day Years Used Date Smoking Tobacco: Never Assessed Comments Unknown Sex and Gender Information Value Date Recorded Sex Assigned at Not on file Legal Sex Female 5:01 AM LINUX ARCHITECT Gender Identity Not on file Sexual Orientation Not on file documented as of this encounter Plan of Treatment Upcoming Encounters Date Type Department Care Team (Late Contact Info) Description 07/04/2024 11:15 AM CDT Office Visit [facility] Heart and Vascular At [address] [place] [address] Esteban Dueñas MD [address] [place] [address] [place] [address] documented as of this encounter Visit Diagnoses Diagnosis Nonspecific (abnormal) findings on radiological and other examination of skull and head- Primary documented in this encounter Care Teams Customer Success Associate Relationship Specialty Start Date End Date Vitaly Manzanares MD [address] [place] [address] PCP - General Family Practice 05/19/22 documented as of this encounter
--- OUTSIDE RECORDS SUMMARY | 2024-06-22 08:10 | XMS_ITS | Encounter Summary ---
Author Organization [facility] Address [address] [place] [address] Care Team Providers Care Segmental Paving Supervisor Name Role Phone Vitaly Manzanares MD Primary Care Provider Encounter Details Date Type Department Care Team (Late st Contact Info) Description 12/28/2003 Outpatient Historical [facility] Gadiel Bardales MD [address] [place] [phone] SCREENING MAMM-MAILG NEOPL-OTHER (Primary Dx) Social History Tobacco Use Types Packs/Day Years Used Date Smoking Tobacco: Never Assessed Comments Unknown Sex and Gender Information Value Date Recorded Sex Assigned at Not on file Legal Sex Female 5:01 AM SKIMMER 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 Gender Identity Not on file Sexual Orientation Not on file documented as of this encounter Plan of Treatment Upcoming Encounters Date Type Department Care Team (Late Contact Info) Description 07/04/2024 11:15 AM CDT Office Visit [facility] Heart and Vascular At [address] [place] [address] Esteban Dueñas MD [address] [place] [address] [place] [address] documented as of this encounter Visit Diagnoses Diagnosis Other screening mammogram- Primary documented in this encounter Care Teams Segmental Paving Supervisor Relationship Specialty Start Date End Date Vitaly Manzanares MD [address] [place] [address] PCP - General Family Practice 05/19/22 documented as of this encounter
--- OUTSIDE RECORDS SUMMARY | 2024-06-22 08:10 | XMS_ITS | Encounter Summary ---
Author Organization [facility] Address [address] [place] [address] Care Team Providers Care Diabetes Education Coordinator Name Role Phone Vitaly Manzanares MD Primary Care Provider [phone] Encounter Details Date Type Department Care Team (Late st Contact Info) Description 04/19/2001 Outpatient Historical [facility] Internal Medicine [place] [address] [place] [address] Gadiel Christensen MD [address] [place] [phone] Social History Tobacco Use Types Packs/Day Years Used Date Smoking Tobacco: Never Assessed Comments Unknown Sex and Gender Information Value Date Recorded Sex Assigned at Not on file Legal Sex Female 5: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 Gender Identity Not on file Sexual Orientation Not on file documented as of this encounter Plan of Treatment Upcoming Encounters Date Type Department Care Team (Late st Contact Info) Description 07/04/2024 11:15 AM CDT Office Visit [facility] Heart and Vascular At [facility] [address] [facility] [address] [place] [address] Esteban Dueñas MD [facility] [address] [facility] [address] [place] [address] documented as of this encounter Visit Diagnoses Not on filedocumented in this encounter Care Teams Diabetes Education Coordinator Relationship Specialty Start Date End Date Vitaly Manzanares MD [address] [place] [address] PCP - General Family Practice 05/19/22 documented as of this encounter
--- OUTSIDE RECORDS SUMMARY | 2024-06-22 08:10 | XMS_ITS | Encounter Summary ---
Author Organization [facility] Address [address] [place] [address] Care Team Providers Care Flat Breakdown Processor Name Role Phone Vitaly Manzanares MD Primary Care Provider Encounter Details Date Type Department Care Team (Late st Contact Info) Description 02/13/2005 Outpatient Historical [facility] Internal Medicine [place] [id number] [place] [address] Gadiel Christensen MD [address] [place] [phone] Social History Tobacco Use Types Packs/Day Years Used Date Smoking Tobacco: Never Assessed Comments Unknown Sex and Gender Information Value Date Recorded Sex Assigned at Not on file Legal Sex Female 5:01 AM CONTROL CENTER OPERATOR Gender Identity Not on file Sexual Orientation Not on file documented as of this encounter Plan of Treatment Upcoming Encounters Date Type Department Care Team (Late st Contact Info) Description 07/04/2024 11:15 AM CDT Office Visit [facility] Heart and Vascular At [facility] [address] [facility] [address] [place] [address] Esteban Dueñas MD [facility] [address] [facility] [address] [place] [address] documented as of this encounter Visit Diagnoses Not on filedocumented in this encounter Care Teams Flat Breakdown Processor Relationship Specialty Start Date End Date Vitaly Manzanares MD [address] [place] [address] PCP - General Family Practice 05/19/22 documented as of this encounter
--- OUTSIDE RECORDS SUMMARY | 2024-06-22 08:10 | XMS_ITS | Encounter Summary ---
Author Organization [facility] Address [address] [place] [address] Care Team Providers Care Academic Director Name Role Phone Vitaly Manzanares MD Primary Care Provider [phone] Encounter Details Date Type Department Care Team (Late st Contact Info) Description 04/04/2004 Outpatient Historical [facility] Gadiel Christensen MD [address] [place] [phone] DISC DIS NEC/NOS-UNSPEC (Primary Dx) Social History Tobacco Use Types Packs/Day Years Used Date Smoking Tobacco: Never Assessed Comments Unknown Sex and Gender Information Value Date Recorded Sex Assigned at Not on file Legal Sex Female 5:01 AM TRANSPORTATION SOLUTIONS MANAGER Gender Identity Not on file Sexual Orientation Not on file documented as of this encounter Plan of Treatment Upcoming Encounters Date Type Department Care Team (Late Contact Info) Description 07/04/2024 11:15 AM CDT Office Visit [facility] Heart and Vascular At [address] [place] [address] Esteban Dueñas MD [address] [place] [address] [address] [place] [address] documented as of this encounter Visit Diagnoses Diagnosis Other and unspecified disc disorder of unspecified region- Primary documented in this encounter Care Teams Academic Director Relationship Specialty Start Date End Date Vitaly Manzanares MD [address] [place] [address] PCP - General Family Practice 05/19/22 documented as of this encounter
--- OUTSIDE RECORDS SUMMARY | 2024-06-22 08:10 | XMS_ITS | Encounter Summary ---
Author Organization [facility] Address [address] [place] [address] Care Team Providers Care Tool Lathe Operator Name Role Phone Vitaly Manzanares MD Primary Care Provider [phone] Encounter Details Date Type Department Care Team (Latest Contact Info) Description 05/06/2004 Outpatient Historical [facility] Gadiel Christensen MD [address] [place] [phone] DISC DISPLACEMENT NOS (Primary Dx) Social History Tobacco Use Types Packs/Day Years Used Date Smoking Tobacco: Never Assessed Comments Unknown Sex and Gender Information Value Date Recorded Sex Assigned at Not on file Legal Sex Female 5:01 AM KENO WRITER Gender Identity Not on file Sexual Orientation Not on file documented as of this encounter Plan of Treatment Upcoming Encounters Date Type Department Care Team (Late st Contact Info) Description 07/04/2024 11:15 AM CDT Office Visit [facility] Heart and Vascular At [facility] [address] [place] [address] Esteban Dueñas MD [facility] [address] [facility] [address] [place] [address] documented as of this encounter Visit Diagnoses Diagnosis Displacement of intervertebral disc, site unspecified, without myelopathy- Primary documented in this encounter Care Teams Tool Lathe Operator Relationship Specialty Start Date End Date Vitaly Manzanares MD [address] [place] [address] PCP - General Family Practice 05/19/22 documented as of this encounter
--- OUTSIDE RECORDS SUMMARY | 2024-06-22 08:10 | XMS_ITS | Encounter Summary ---
Author Organization [facility] Address [address] [place] [address] Care Team Providers Care Instructional Services Specialist Name Role Phone Vitaly Manzanares MD Primary Care Provider [phone] Encounter Details Date Type Department Care Team (Late st Contact Info) Description 11/19/2004 Outpatient Historical [facility] Gadiel Christensen MD [address] [place] [phone] CERVICALGIA (Primary Dx) Social History Tobacco Use Types Packs/Day Years Used Date Smoking Tobacco: Never Assessed Comments Unknown Sex and Gender Information Value Date Recorded Sex Assigned at Not on file Legal Sex Female 5:01 AM PLATEN PRESS OPERATOR Gender Identity Not on file Sexual Orientation Not on file documented as of this encounter Plan of Treatment Upcoming Encounters Date Type Department Care Team (Late st Contact Info) Description 07/04/2024 11:15 AM CDT Office Visit [facility] Heart and Vascular At [address] [place] [address] Esteban Dueñas MD [address] [place] [address] [address] [place] [address] documented as of this encounter Visit Diagnoses Diagnosis Cervicalgia- Primary documented in this encounter Care Teams Instructional Services Specialist Relationship Specialty Start Date End Date Vitaly Manzanares MD [address] [place] [address] PCP - General Family Practice 05/19/22 documented as of this encounter
--- OUTSIDE RECORDS SUMMARY | 2024-06-22 08:10 | XMS_ITS | Encounter Summary ---
Author Organization [facility] Address [address] [place] [address] Care Team Providers Care Retail Assistant Store Manager Name Role Phone Vitaly Manzanares MD Primary Care Provider Encounter Details Date Type Department Care Team (Late st Contact Info) Description 05/19/2005 Outpatient Historical [facility] Internal Medicine [address] [place] [address] Gadiel Christensen MD [address] [place] [phone] Social History Tobacco Use Types Packs/Day Years Used Date Smoking Tobacco: Never Assessed Comments Unknown Sex and Gender Information Value Date Recorded Sex Assigned at Not on file Legal Sex Female 5:01 AM OYSTER WORKER Gender Identity Not on file Sexual Orientation Not on file documented as of this encounter Plan of Treatment Upcoming Encounters Date Type Department Care Team (Late st Contact Info) Description 07/04/2024 11:15 AM CDT Office Visit [facility] Heart and Vascular At [facility] [address] [facility] [address] [place] [address] Esteban Dueñas MD [facility] [address] [facility] [address] [place] [address] documented as of this encounter Visit Diagnoses Not on filedocumented in this encounter Care Teams Retail Assistant Store Manager Relationship Specialty Start Date End Date iVtaly Manzanares MD [address] [place] [address] PCP - General Family Practice 05/19/22 documented as of this encounter
--- OUTSIDE RECORDS SUMMARY | 2024-06-22 08:10 | XMS_ITS | Encounter Summary ---
Author Organization [facility] Address [address] [place] [address] Care Team Providers Care Fireman Name Role Phone Vitaly Manzanares MD Primary Care Provider Encounter Details Date Type Department Care Team (Late st Contact Info) Description 08/19/2005 Outpatient Historical [facility] Internal Medicine [address] [place] [address] Gadiel Christensen MD [address] [place] [phone] Social History Tobacco Use Types Packs/Day Years Used Date Smoking Tobacco: Never Assessed Comments Unknown Sex and Gender Information Value Date Recorded Sex Assigned at Not on file Legal Sex Female 5:01 AM EMERGENCY SERVICES PROFESSIONAL Gender Identity Not on file Sexual Orientation Not on file documented as of this encounter Plan of Treatment Upcoming Encounters Date Type Department Care Team (Late st Contact Info) Description 07/04/2024 11:15 AM CDT Office Visit [facility] Heart and Vascular At [facility] [address] [facility] [address] [place] [address] Esteban Dueñas MD [facility] [address] [facility] [address] [place] [address] documented as of this encounter Visit Diagnoses Not on filedocumented in this encounter Care Teams Fireman Relationship Specialty Start Date End Date Vitaly Manzanares MD [address] [place] [address] PCP - General Family Practice 05/19/22 documented as of this encounter
--- OUTSIDE RECORDS SUMMARY | 2024-06-22 08:11 | XMS_ITS | Encounter Summary ---
Author Organization [facility] Address [facility] [place] [address] Care Team Providers Care Client Care Representative Name Role Phone Esteabn Casanova MD Primary Care Provider Encounter Details Date Type Department Care Team (Late st Contact Info) Description 11/21/[address] [facility] [address] [place] [address] Mike Madrigal MD [address] [place] [address] Social History Tobacco Use Types Packs/Day Years Used Date Smoking Tobacco: Never Smokeless Tobacco: Never Alcohol Use Standard Drinks/Week Comments Not Currently 0 (1 standard drink = 0.6 oz pur e alcohol) Comments No Sex and Gender Information Value Date Recorded Sex Assigned at Not on file Legal Sex Female 1:00 PM FILLING HAND Gender Identity Not on file Sexual Orientation [...] DETECTED NOT DETECTED 11/25/2019 4:01 PM CDT [facility] Comment: A Not Detected (negative) test [...] providers and patients using the following websites: https://www.[employer].Comparisim/home/Covid-19/HCP/NAAT/fact-sheet2 https://www.[employer].Comparisim/home/Covid-19/Patients/NAAT/ fact-sheet2 This test has been authorized by the FDA under an Emergency Use Authorization (EUA) for use by authorized laboratories. Due to the current public health emergency, [facility] is receiving a high volume of samples [...] about COVID-19 can be found at the [facility] website: www.[employer].Comparisim/Covid19. Test performed at [facility] [address] [place] [address] Director: NESSA MCNALLY DO,MPH FIRST TEST UNKNOWN 11/24/2019 3:42 PM CDT [facility] EMPLOYED IN HEALTHCARE NO 11/24/2019 3:42 PM CDT [facility] SYMPTOMATIC DEFINED BY CDC NO 11/24/2019 3:42 PM CDT [facility] DATE OF SYMPTOM ONSET NON-APPLICABLE 11/24/2019 3:42 PM CDT [facility] HOSPITALIZATION STATUS NO 11/24/2019 3:42 PM CDT [facility] PATIENT IN ICU NO 11/24/2019 3:42 PM CDT [facility] RESIDENT OF CONGREGATE CARE NO 11/24/2019 3:42 PM CDT [facility] NO 11/24/2019 3:42 PM CDT [facility] PATIENT'S RACE UNKNOWN 11/24/2019 3:42 PM CDT [facility] ETHNICITY UNKNOWN 11/24/2019 3:42 PM CDT [facility] SOURCE (QST) NASOPHARYNGEAL SWAB 11/24/2019 11:54 AM CDT [facility] NASOPHARYNGEAL SWAB / Unknown 11/24/2019 11:57 AM CDT us Mike Madrigal MD MICROBIOLOGY - GENERAL ORDERAB LES Final Result Performing Organization Address City/State/[facility] Co de Phone Number [facility] [address] [place] [address], [place] [phone] [facility] [id number] [place] [address], documented in this encounter Visit Diagnoses Diagnosis Preop testing- Primary Preoperative examination, unspecified documented in this encounter Additional Health Concerns Infection Onset Date Last Indicated Resolved Time COVID-19 Rule Out 11/24/2019 11/24/2019 11/25/2019 4:01 PM CDT documented as of this encounter Care Teams Client Care Representative Relationship Specialty [place] [address] [place] [address] PCP - General INTERNAL MEDICINE 05/16/19 documented as of this encounter
--- OUTSIDE RECORDS SUMMARY | 2024-06-22 08:11 | XMS_ITS | Encounter Summary ---
Author Organization [facility] Address [address] [place] [address] Care Team Providers Care Field Marketing Manager Name Role Phone Vitaly Manzanares MD Primary Care Provider [phone] Encounter Details Date Type Department Care Team (Late st Contact Info) Description 02/23/2003 Outpatient Historical [facility] [address] [place] [address] Esteban Dueñas MD [address] [place] [address] [address] [place] [address] Social History Tobacco Use Types Packs/Day Years Used Date Smoking Tobacco: Never Assessed Comments Unknown Sex and Gender Information Value Date Recorded Sex Assigned at Not on file Legal Sex Female 5:01 AM ELECTRONIC DEVICE MONITOR Gender Identity Not on file Sexual Orientation Not on file documented as of this encounter Plan of Treatment Upcoming Encounters Date Type Department Care Team (Late st Contact Info) Description 07/04/2024 11:15 AM CDT Office Visit [facility] Heart and Vascular At [address] [place] [address] Esteban Dueñas MD [address] [place] [address] [place] [address] documented as of this encounter Visit Diagnoses Not on filedocumented in this encounter Care Teams Field Marketing Manager Relationship Specialty Start Date End Date Vitaly Manzanares MD [address] [place] [address] PCP - General Family Practice 05/19/22 documented as of this encounter
--- OUTSIDE RECORDS SUMMARY | 2024-06-22 08:11 | XMS_ITS | Encounter Summary ---
Author Organization [facility] Address [address] [place] [address] Care Team Providers Care Manager Bank Name Role Phone Vitaly Manzanares MD Primary Care Provider Encounter Details Date Type Department Care Team (Late st Contact Info) Description 01/15/2003 Outpatient Historical [facility] Internal Medicine [address] [place] [address] Gadiel Christensen MD [address] [place] [phone] Social History Tobacco Use Types Packs/Day Years Used Date Smoking Tobacco: Never Assessed Comments Unknown Sex and Gender Information Value Date Recorded Sex Assigned at Not on file Legal Sex Female 5:01 AM BOARDING ROOM FIXER Gender Identity Not on file Sexual Orientation Not on file documented as of this encounter Plan of Treatment Upcoming Encounters Date Type Department Care Team (Late st Contact Info) Description 07/04/2024 11:15 AM CDT Office Visit [facility] Heart and Vascular At [facility] [address] [facility] [address] [place] [address] Esteban Dueñas MD [facility] [address] [facility] [address] [place] [address] documented as of this encounter Visit Diagnoses Not on filedocumented in this encounter Care Teams Manager Bank Relationship Specialty Start Date End Date Vitaly Manzanares MD [address] [place] [address] PCP - General Family Practice 05/19/22 documented as of this encounter
--- OUTSIDE RECORDS SUMMARY | 2024-06-22 08:11 | XMS_ITS | Encounter Summary ---
Author Organization [facility] Address [address] [place] [address] Care Team Providers Care Bridge Attacher Name Role Phone Vitaly Manzanares MD Primary Care Provider [phone] Encounter Details Date Type Department Care Team (Late st Contact Info) Description 02/26/2003 Outpatient Historical [facility] Internal Medicine [address] [place] [address] Gadiel Christensen MD [address] [place] [phone] Social History Tobacco Use Types Packs/Day Years Used Date Smoking Tobacco: Never Assessed Comments Unknown Sex and Gender Information Value Date Recorded Sex Assigned at Not on file Legal Sex Female 5:01 AM TENTMAKER Gender Identity Not on file Sexual Orientation Not on file documented as of this encounter Plan of Treatment Upcoming Encounters Date Type Department Care Team (Late st Contact Info) Description 07/04/2024 11:15 AM CDT Office Visit [facility] Heart and Vascular At [facility] [address] [facility] [address] [place] [address] Esteban Dueñas MD [facility] [address] [facility] [address] [place] [address] documented as of this encounter Visit Diagnoses Not on filedocumented in this encounter Care Teams Bridge Attacher Relationship Specialty Start Date End Date Vitaly Manzanares MD [address] [place] [address] PCP - General Family Practice 05/19/22 documented as of this encounter
--- OUTSIDE RECORDS SUMMARY | 2024-06-22 08:11 | XMS_ITS | Encounter Summary ---
Author Organization [facility] Address [address] [place] [address] Care Team Providers Care Bin Worker Name Role Phone Vitaly Manzanares MD Primary Care Provider Encounter Details Date Type Department Care Team (Late st Contact Info) Description 01/25/2003 Outpatient Historical [facility] Internal Medicine [address] [place] [address] Gadiel Christensen MD [address] [place] [phone] Social History Tobacco Use Types Packs/Day Years Used Date Smoking Tobacco: Never Assessed Comments Unknown Sex and Gender Information Value Date Recorded Sex Assigned at Not on file Legal Sex Female 5:01 AM NETWORK CONSULTANT Gender Identity Not on file Sexual Orientation Not on file documented as of this encounter Plan of Treatment Upcoming Encounters Date Type Department Care Team (Late st Contact Info) Description 07/04/2024 11:15 AM CDT Office Visit [facility] Heart and Vascular At [facility] [address] [facility] [address] [place] [address] Esteban Deuñas MD [facility] [address] [facility] [address] [place] [address] documented as of this encounter Visit Diagnoses Not on filedocumented in this encounter Care Teams Bin Worker Relationship Specialty Start Date End Date Vitaly Manzanares MD [address] [place] [address] PCP - General Family Practice 05/19/22 documented as of this encounter
--- OUTSIDE RECORDS SUMMARY | 2024-06-22 08:11 | XMS_ITS | Clinical Summary ---
Author Organization [facility] Address [facility] [place] [address] Care Team Providers Care Custom Shoemaker Name Role Phone Esteban Casanova MD Primary [...] on file Legal Sex Female 1:00 PM BIOSECURITY OFFICER Gender Identity Not on file Sexual Orientation [...] this topic Medical Devices Implanted Type Area Food Products Sales Representative Device Identifier Shelf Expiration Date Model / Serial / Lot Iol [place] [employer] Zcboo - [id number] Implanted:Qty: 1 on 05/22/2019 by Mike Madrigal MD at [facility] Lens [employer] 07/18/2021 [id number] / / [id number] Iol Velasquez [employer]ision Zcboo - [id number] Implanted:Qty: 1 on 11/27/2019 by Mike Madrigal MD at [facility] Lens Right: Eye [employer] 09/25/2023 ZCB00 / [id number] / Explanted Type Area Food Products Sales Representative Device Identifier Shelf Expiration Date Model / Serial / Lot 3 Coronary Stents Insurance AET[employer] Care Teams Custom Shoemaker Relationship Specialty [place] [address] [place] [address] PCP - General INTERNAL MEDICINE 05/16/19
--- OUTSIDE RECORDS SUMMARY | 2024-06-22 08:11 | XMS_ITS | Clinical Summary ---
Author Organization [facility] Address [address] [place] [address] Phone Care Team Providers Care Cdl Instructor Name Role Phone Vitaly Manzanares MD Primary Care Provider [phone] Medications ISOSORBIDE DINITRATE PO Take by mouth. [...] 06/12/2024 10:15 AM CDT Outpatient Clinic Visit [facility] [address] [place] [address] Marcell Joyner, ANTIQUE COLLECTOR Adjustment disorder with depressed mood (Primary Dx) Discharge Disposition: Discharged to home or Selfcare 06/10/2024 Travel 05/22/2024 2:30 PM CDT [facility] [address] [place] [address] Marcell Joyner LCSW Adjustment disorder with depressed mood (Primary Dx) Discharge Disposition: Discharged to home or Selfcare 05/21/2024 Travel 05/20/2024 Travel 05/15/2024 10:00 AM BALL FRINGE MACHINE OPERATOR [facility] [address] [place] [address] Marcell Joyner LCSW Adjustment disorder with depressed [...] 06/30/2024 10:00 AM CDT Out[facility] [address] [place] [address] Marcell Joyner LCSW [address] [place] [address] Health Maintenance Due Date Last Done Comments [...] track(2024 10:18 AM CDT) Yes Marcell Joyner, ANTIQUE COLLECTOR Note: I need help coping with all my physical health issues and caregiver stress along with physical limitations from my heart. Goal/Objective: Improve coping skills. Anticipated Time Frame for Goal Completion: 6 months Goal Reviewed with: patient Readiness to change: Ready to change Department associated with goal: [facility] Steps to achieve goal: [...] sessions Insurance MEDICARE C AETNA Care Teams Cdl Instructor Relationship Specialty Start Date End Date Vitaly Manzanares MD [address] [address] PCP - General Family Medicine 04/21/24
--- OUTSIDE RECORDS SUMMARY | 2024-06-22 08:11 | XMS_ITS | Encounter Summary ---
Author Organization [facility] Address [address] [place] [address] Care Team Providers Care Academic Affairs Assistant Name Role Phone Vitaly Manzanares MD Primary Care Provider Encounter Details Date Type Department Care Team (Latest Contact Info) Description 02/23/2003 Outpatient Historical [facility] ChristensenGadiel MD [address] [place] [phone] CHEST PAIN NOS (Primary Dx) Social History Tobacco Use Types Packs/Day Years Used Date Smoking Tobacco: Never Assessed Comments Unknown Sex and Gender Information Value Date Recorded Sex Assigned at Not on file Legal Sex Female 5:01 AM GRAIN MIXER Gender Identity Not on file Sexual Orientation Not on file documented as of this encounter Plan of Treatment Upcoming Encounters Date Type Department Care Team (Late st Contact Info) Description 07/04/2024 11:15 AM CDT Office Visit [facility] Heart and Vascular At [address] [place] [address] Esteban Dueñas MD [address] [place] [address] [address] [place] [address] documented as of this encounter Visit Diagnoses Diagnosis Chest pain, unspecified- Primary documented in this encounter Care Teams Academic Affairs Assistant Relationship Specialty Start Date End Date Vitaly Manzanares MD [address] [place] [address] PCP - General Family Practice 05/19/22 documented as of this encounter
== END 2024-06-22 08:05 | disposition home or self-care (01) ==
PROVIDERS: PCP Family Medicine; Visit Provider Family Medicine
DX: M47.27 Other spondylosis with radiculopathy, lumbosacral region (principal)
CPT/HCPCS: 72148

== ENCOUNTER 2024-09-29 11:50 | Outpatient (CLI) | payer MEDICARE, SELFPAY ==
--- NOTE | ~2024-09-29 | MM_ITS ---
EXAMINATION: MM screening alva BI w juan m HISTORY: Screening TECHNIQUE: Craniocaudal and mediolateral oblique 3-D tomosynthesis images were obtained and synthetic 2-D images were generated. CAD analysis was submitted and interpreted. COMPARISON: 09/29/2023 BREAST PARENCHYMAL COMPOSITION: Dense: The breasts are heterogeneously dense, which may obscure small masses FINDINGS: There is no evidence of suspicious mass, calcification, or architectural distortion to sugg est malignancy in either breast. There has been no suspicious interval change. IMPRESSION: 1. No mammographic evidence of malignancy. 2. Recommend routine screening mammography in one year. BI-RADS Category 1: Negative Reviewed, dictated and finalized at location B.
--- OUTSIDE RECORDS SUMMARY | 2024-09-29 11:53 | XMS_ITS | Encounter Summary ---
Author Organization [facility] Address [address] [place] [address] Care Team Providers Care Program Management Professional Name Role Phone Vitaly Manzanares MD Primary Care Provider [phone] Encounter Details Date Type Department Care Team (Late st Contact Info) Description 03/30/2001 Outpatient Historical [facility] Internal Medicine [address] [place] [address] Gadiel Christensen MD [address] [place] [phone] Social History Tobacco Use Types Packs/Day Years Used Date Smoking Tobacco: Never Assessed Comments Unknown Sex and Gender Information Value Date Recorded Sex Assigned at Not on file Legal Sex Female 5:01 AM IT TRAINER Gender Identity Not on file Sexual Orientation Not on file documented as of this encounter Plan of Treatment Upcoming Encounters Date Type Department Care Team (Late st Contact Info) Description 10/11/2024 11:15 AM CDT Office Visit [facility] Heart and Vascular At [facility] [address] [facility] [address] [place] [address] Esteban Dueñas MD [facility] [address] [facility] [address] [place] [address] documented as of this encounter Visit Diagnoses Not on filedocumented in this encounter Care Teams Program Management Professional Relationship Specialty Start Date End Date Vitaly Manzanares MD [address] [place] [phone] PCP - General Family Practice 05/19/22 documented as of this encounter
--- OUTSIDE RECORDS SUMMARY | 2024-09-29 11:53 | XMS_ITS | Encounter Summary ---
Author Organization [facility] Address [address] [place] [address] Care Team Providers Care Sane Nurse Name Role Phone Vitaly Manzanares MD Primary Care Provider Encounter Details Date Type Department Care Team (Late st Contact Info) Description 02/13/2005 Outpatient Historical [facility] Internal Medicine [id number] [place] [address] Gadiel Christensen MD [address] [place] [phone] Social History Tobacco Use Types Packs/Day Years Used Date Smoking Tobacco: Never Assessed Comments Unknown Sex and Gender Information Value Date Recorded Sex Assigned at Not on file Legal Sex Female 5:01 AM MANAGER PHYSICAL Gender Identity Not on file Sexual Orientation Not on file documented as of this encounter Plan of Treatment Upcoming Encounters Date Type Department Care Team (Late st Contact Info) Description 10/11/2024 11:15 AM CDT Office Visit [facility] Heart and Vascular At [facility] [address] [facility] [address] [place] [address] Esteban Dueñas MD [facility] [address] [facility] [address] [place] [address] documented as of this encounter Visit Diagnoses Not on filedocumented in this encounter Care Teams Sane Nurse Relationship Specialty Start Date End Date Vitaly Manzanares MD [address] [place] [phone] PCP - General Family Practice 05/19/22 documented as of this encounter
--- OUTSIDE RECORDS SUMMARY | 2024-09-29 11:53 | XMS_ITS | Encounter Summary ---
Author Organization [facility] Address [address] [place] [address] Care Team Providers Care Studio Coordinator Name Role Phone Vitaly Manzanares MD Primary Care Provider Encounter Details Date Type Department Care Team (Late st Contact Info) Description 05/27/2001 Outpatient Historical [facility] Internal Medicine [address] [place] [address] Gadiel Christensen MD [address] [place] [phone] Social History Tobacco Use Types Packs/Day Years Used Date Smoking Tobacco: Never Assessed Comments Unknown Sex and Gender Information Value Date Recorded Sex Assigned at Not on file Legal Sex Female 5:01 AM DESIGN/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 Gender Identity Not on file Sexual Orientation Not on file documented as of this encounter Plan of Treatment Upcoming Encounters Date Type Department Care Team (Late st Contact Info) Description 10/11/2024 11:15 AM CDT Office Visit [facility] Heart and Vascular At [facility] [address] [facility] [address] [place] [address] Esteban Dueñas MD [facility] [address] [facility] [address] [place] [address] documented as of this encounter Visit Diagnoses Not on filedocumented in this encounter Care Teams Studio Coordinator Relationship Specialty Start Date End Date Vitaly Manzanares MD [address] [place] [phone] PCP - General Family Practice 05/19/22 documented as of this encounter
--- OUTSIDE RECORDS SUMMARY | 2024-09-29 11:53 | XMS_ITS | Encounter Summary ---
Author Organization [facility] Address [address] [place] [address] Care Team Providers Care Shipping And Receiving Supervisor Name Role Phone Vitaly Manzanares MD Primary Care Provider Encounter Details Date Type Department Care Team (Late st Contact Info) Description 07/18/2001 Outpatient Historical [facility] Internal Medicine [address] [place] [address] Gadiel Christensen MD [address] [place] [phone] Social History Tobacco Use Types Packs/Day Years Used Date Smoking Tobacco: Never Assessed Comments Unknown Sex and Gender Information Value Date Recorded Sex Assigned at Not on file Legal Sex Female 5:01 AM NUTRITION SERVICES ASSISTANT Gender Identity Not on file Sexual Orientation Not on file documented as of this encounter Plan of Treatment Upcoming Encounters Date Type Department Care Team (Late st Contact Info) Description 10/11/2024 11:15 AM CDT Office Visit [facility] Heart [facility] Vascular At [facility] [address] [facility] [address] [place] [address] Esteban Dueñas MD [facility] [address] [facility] [address] [place] [address] documented as of this encounter Visit Diagnoses Not on filedocumented in this encounter Care Teams Shipping And Receiving Supervisor Relationship Specialty Start Date End Date Vitaly Manzanares MD [address] [place] [phone] PCP - General Family Practice 05/19/22 documented as of this encounter
--- OUTSIDE RECORDS SUMMARY | 2024-09-29 11:53 | XMS_ITS | Encounter Summary ---
Author Organization [facility] Address [address] [place] [address] Care Team Providers Care Pigs Feet Cleaner Name Role Phone Vitaly Manzanares MD Primary Care Provider Encounter Details Date Type Department Care Team (Late st Contact Info) Description 06/28/2006 Outpatient Historical [facility] Internal Medicine [id number] [place] [address] Gdaiel Christensen MD [address] [place] [phone] Social History Tobacco Use Types Packs/Day Years Used Date Smoking Tobacco: Never Assessed Comments Unknown Sex and Gender Information Value Date Recorded Sex Assigned at Not on file Legal Sex Female 5: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 [facility] [address] [place] [address] Esteban Dueñas MD [facility] [address] [facility] [address] [place] [address] documented as of this encounter Visit Diagnoses Not on filedocumented in this encounter Care Teams Pigs Feet Cleaner Relationship Specialty Start Date End Date Vitaly Manzanares MD [address] [place] [phone] PCP - General Family Practice 05/19/22 documented as of this encounter
--- OUTSIDE RECORDS SUMMARY | 2024-09-29 11:53 | XMS_ITS | Encounter Summary ---
Author Organization [facility] Address [address] [place] [address] Care Team Providers Care Straightedge Man Name Role Phone Vitaly Manzanares MD Primary Care Provider Encounter Details Date Type Department Care Team (Late st Contact Info) Description 06/04/2005 Outpatient Historical [facility] Internal Medicine [address] [place] [address] Gadiel Christensen MD [address] [place] [phone] Social History Tobacco Use Types Packs/Day Years Used Date Smoking Tobacco: Never Assessed Comments Unknown Sex and Gender Information Value Date Recorded Sex Assigned at Not on file Legal Sex Female 5:01 AM CAFETERIA AIDE Gender Identity Not on file Sexual Orientation Not on file documented as of this encounter Plan of Treatment Upcoming Encounters Date Type Department Care Team (Late st Contact Info) Description 10/11/2024 11:15 AM CDT Office Visit [facility] Heart and Vascular At [facility] [address] [facility] [address] [place] [address] Esteban Dueñas MD [facility] [address] [facility] [address] [place] [address] documented as of this encounter Visit Diagnoses Not on filedocumented in this encounter Care Teams Straightedge Man Relationship Specialty Start Date End Date Vitaly Manzanares MD [address] [place] [phone] PCP - General Family Practice 05/19/22 documented as of this encounter
--- OUTSIDE RECORDS SUMMARY | 2024-09-29 11:53 | XMS_ITS | Encounter Summary ---
Author Organization [facility] Address [address] [place] [address] Care Team Providers Care Rivet Tester Name Role Phone Vitaly Manzanares MD Primary Care Provider [phone] Encounter Details Date Type Department Care Team (Late st Contact Info) Description 09/27/2024 External Device Data ST[place] ABSTRACTION Provider, Abstract NO ADDRESS ON FILE Social History Tobacco Use Types Packs/Day Years Used Date Smoking Tobacco: Never Smokeless Tobacco: Never Alcohol Use Standard Drinks/Week Comments Yes 1.7 (1 standard drink = 0.6 oz p ure alcohol) Comments No Sex and Gender Information Value Date Recorded Sex Assigned at Not on file Legal Sex Female 5: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 Gender Identity Not on file Sexual Orientation Not on file Occupation Industry Job Start Date Job End Date Not on file Not on file Not on file Not on file documented as of this encounter Plan of Treatment Upcoming Encounters Date Type Department Care Team (Late st Contact Info) Description 10/11/2024 11:15 AM CDT Office Visit [facility] Heart and Vascular At [address] [place] [address] Esteban Dueñas MD [address] [place] [address] [address] [place] [address] documented as of this encounter Visit Diagnoses Not on filedocumented in this encounter Care Teams Rivet Tester Relationship Specialty Start Date End Date Vitaly Manzanares MD [address] [place] [address] PCP - General Family Practice 05/19/22 documented as of this encounter
--- OUTSIDE RECORDS SUMMARY | 2024-09-29 11:53 | XMS_ITS | Encounter Summary ---
Author Organization [facility] Address [address] [place] [address] Care Team Providers Care Tap Grinder Name Role Phone Vitaly Manzanares MD Primary Care Provider Encounter Details Date Type Department Care Team (Late st Contact Info) Description 04/19/2001 Outpatient Historical [facility] Internal Medicine [address] [place] [address] Gadiel Christensen MD [address] [place] [phone] Social History Tobacco Use Types Packs/Day Years Used Date Smoking Tobacco: Never Assessed Comments Unknown Sex and Gender Information Value Date Recorded Sex Assigned at Not on file Legal Sex Female 5:01 AM COMPANY DANCER Gender Identity Not on file Sexual Orientation Not on file documented as of this encounter Plan of Treatment Upcoming Encounters Date Type Department Care Team (Late st Contact Info) Description 10/11/2024 11:15 AM CDT Office Visit [facility] Heart and Vascular At [facility] [address] [facility] [address] [place] [address] Esteban Dueñas MD [facility] [address] [facility] [address] [place] [address] documented as of this encounter Visit Diagnoses Not on filedocumented in this encounter Care Teams Tap Grinder Relationship Specialty Start Date End Date Vitaly Manzanares MD [address] [place] [address] PCP - General Family Practice 05/19/22 documented as of this encounter
--- OUTSIDE RECORDS SUMMARY | 2024-09-29 11:53 | XMS_ITS | Encounter Summary ---
Author Organization [facility] Address [address] [place] [address] Care Team Providers Care Ncr Operator Name Role Phone Vitaly Manzanares MD Primary Care Provider Encounter Details Date Type Department Care Team (Late st Contact Info) Description 03/09/2006 Outpatient Historical [facility] Gadiel Christensen MD [address] [place] [phone] Essential Hypertension, Benign (Primary Dx) Social History Tobacco Use Types Packs/Day Years Used Date Smoking Tobacco: Never Assessed Comments Unknown Sex and Gender Information Value Date Recorded Sex Assigned at Not on file Legal Sex Female 5:01 AM SCAFFOLDER Gender Identity Not on file Sexual Orientation Not on file documented as of this encounter Plan of Treatment Upcoming Encounters Date Type Department Care Team (Late Contact Info) Description 10/11/2024 11:15 AM CDT Office Visit [facility] Heart and Vascular At [address] [place] [address] Esteban Dueñas MD [address] [place] [address] [address] [place] [address] documented as of this encounter Procedures Procedure Name Priority Date/Time Associated Diagnosis Comments TSH REFLEXIVE Routine 03/09/2006 9:00 AM SCAFFOLDER CBC WITH DIFFERENTIAL Routine 03/09/2006 9:00 AM SCAFFOLDER CBC WITH DIFFERENTIAL Routine 03/09/2006 9:00 AM SCAFFOLDER CANCER ANTIGEN 125 Routine 03/09/2006 9: 00 AM SCAFFOLDER MAGNESIUM LEVEL Routine 03/09/2006 9:00 AM SCAFFOLDER LIPID PANEL Routine 03/09/2006 9:00 AM SCAFFOLDER COMPREHENSIVE METABOLIC PANEL Routine 03/09/2006 9:00 AM SCAFFOLDER documented in this encounter Results * CBC WITH DIFFERENTIAL (03/09/2006 9:00 AM SCAFFOLDER) NEUTROPHILS 54 45 - 70 % INTERFAC [...] 0.20 K/uL INTERFACE SYSTEM 03/09/2006 9:00 AM SCAFFOLDER Gadiel Christensen MD HEMATOLOGY ORDERABLES Final Re sult INTERFACE SYSTEM Refer to clinic/hospital department * (ABNORMAL) CBC WITH DIFFERENTIAL (03/09/2006 9:00 AM SCAFFOLDER) WBC 5.4 4.0 - 9.8 K/uL INTERFACE [...] 12.4 fL INTERFACE SYSTEM 03/09/2006 9:00 AM SCAFFOLDER Gadiel Christensen MD HEMATOLOGY ORDERABLES Final Re sult Performing Organization Address [facility] Phone Number INTERFACE SYSTEM Refer to clinic/hospital department * TSH REFLEXIVE (03/09/2006 9:00 AM SCAFFOLDER) TSH 1.82 0.27 - 4.20 uU/mL INTERFACE SYSTEM 03/09/2006 9:00 AM SCAFFOLDER Gadiel Christensen MD CHEMISTRY ORDERABLES Final Res ult Performing Organization Address [facility] Phone Number INTERFACE SYSTEM Refer to clinic/hospital department * MAGNESIUM LEVEL (03/09/2006 9:00 AM SCAFFOLDER) MAGNESIUM 1.8 1.5 - 2.5 mg/dL INTERFACE SYSTEM 03/09/2006 9:00 AM SCAFFOLDER Gadiel Christensen MD CHEMISTRY ORDERABLES Final Res ult Performing Organization Address [facility] Phone Number INTERFACE SYSTEM Refer to clinic/hospital department * CANCER ANTIGEN 125 (03/09/2006 9:00 AM SCAFFOLDER) CA 125 8 <=34 U/mL INTERFACE SYSTEM [...] a cancer screening test. 03/09/2006 9:00 AM SCAFFOLDER Gadiel Christensen MD CHEMISTRY ORDERABLES Final Res ult Performing Organization Address [facility] Co de Phone Number INTERFACE SYSTEM Refer to clinic/hospital department * (ABNORMAL) LIPID PANEL (03/09/2006 9:00 AM SCAFFOLDER) CHOLESTEROL 223(H) 100 - 199 mg/dL INTERFACE SYSTEM TRIGLYCERIDE 130 10 - 149 mg/dL INTERFACE SYSTEM HDL 83(H) 40 - 59 mg/dL INTERFACE SYSTEM CHOL/HDL RATIO 2.7 2.0 - 5.0 INTER FACE SYSTEM LDL CALCULATED 114(H) <=99 mg/dL INTERFACE SYSTEM LIPID PANEL COMMENT See Below INTERFACE SYSTEM Comment: The adult ATP and pediatric NCEP classifications for lipids are available on the [facility] Intranet at: [email or web address] Select: Lab Policies and Procedures Select: Reference Ranges - Lipids 03/09/2006 9:00 AM SCAFFOLDER Gadiel Christensen MD CHEMISTRY ORDERABLES Final Res ult Performing Organization Address [facility] Co de Phone Number INTERFACE SYSTEM Refer to clinic/hospital department * COMPREHENSIVE METABOLIC PANEL (03/09/2006 9:00 AM SCAFFOLDER) GLUCOSE 93 65 - 99 mg/dL INTERFACE [...] and non- Americans is available on the [facility] Intranet at: [email or web address] Select: Lab Policies and Procedures Select: Reference Ranges - GFR 03/09/2006 9:00 AM SCAFFOLDER us Gadiel Christensen MD CHEMISTRY ORDERABLES Final Res ult INTERFACE SYSTEM Refer to clinic/hospital department documented in this encounter Visit Diagnoses Diagnosis Essential hypertension, benign- Primary documented in this encounter Care Teams Ncr Operator Relationship Specialty Start Date End Date Vitaly Manzanares MD [address] [place] [address] PCP - General Family Practice 05/19/22 documented as of this encounter
--- OUTSIDE RECORDS SUMMARY | 2024-09-29 11:53 | XMS_ITS | Encounter Summary ---
Author Organization [facility] Address [address] [place] [address] Care Team Providers Care Speech Therapy Teacher Name Role Phone Vitaly Manzanares MD Primary Care Provider Encounter Details Date Type Department Care Team (Late st Contact Info) Description 06/09/2002 Outpatient Historical [facility] Internal Medicine [address] [place] [address] Gadiel Christensen MD [address] [place] [phone] Social History Tobacco Use Types Packs/Day Years Used Date Smoking Tobacco: Never Assessed Comments Unknown Sex and Gender Information Value Date Recorded Sex Assigned at Not on file Legal Sex Female 5:01 AM SILK 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 DRAFTER Gender Identity Not on file Sexual Orientation Not on file documented as of this encounter Plan of Treatment Upcoming Encounters Date Type Department Care Team (Late st Contact Info) Description 10/11/2024 11:15 AM CDT Office Visit [facility] Heart and Vascular At [facility] [address] [facility] [address] [place] [address] Esteban Dueñas MD [facility] [address] [facility] [address] [place] [address] documented as of this encounter Visit Diagnoses Not on filedocumented in this encounter Care Teams Speech Therapy Teacher Relationship Specialty Start Date End Date Vitaly Manzanares MD [address] [place] [phone] PCP - General Family Practice 05/19/22 documented as of this encounter
--- OUTSIDE RECORDS SUMMARY | 2024-09-29 11:53 | XMS_ITS | Encounter Summary ---
Author Organization [facility] Address [address] [place] [address] Care Team Providers Care Supervisor Plating And Point Assembly Name Role Phone Vitaly Manzanares MD Primary Care Provider Encounter Details Date Type Department Care Team (Late st Contact Info) Description 05/10/2002 Outpatient Historical [facility] Internal Medicine [id number] [place] [address] Gadiel Christensen MD [address] [place] [id number] Social History Tobacco Use Types Packs/Day Years Used Date Smoking Tobacco: Never Assessed Comments Unknown Sex and Gender Information Value Date Recorded Sex Assigned at Not on file Legal Sex Female 5:01 AM BLASTING CAP ASSEMBLER Gender Identity Not on file Sexual Orientation Not on file documented as of this encounter Plan of Treatment Upcoming Encounters Date Type Department Care Team (Late st Contact Info) Description 10/11/2024 11:15 AM CDT Office Visit [facility] At [facility] [address] [facility] [address] [place] [address] Esteban Dueñas MD [facility] [address] [facility] [address] [place] [address] documented as of this encounter Visit Diagnoses Not on filedocumented in this encounter Care Teams Supervisor Plating And Point Assembly Relationship Specialty Start Date End Date Vitaly Manzanares MD [address] [place] [phone] PCP - General Family Practice 05/19/22 documented as of this encounter
--- OUTSIDE RECORDS SUMMARY | 2024-09-29 11:53 | XMS_ITS | Encounter Summary ---
Author Organization [facility] Address [address] [place] [address] Care Team Providers Care Director Of Outside Sales Name Role Phone Vitaly Manzanares MD Primary Care Provider Encounter Details Date Type Department Care Team (Late st Contact Info) Description 11/19/2004 Outpatient Historical [facility] Gadiel Christensen MD [address] [place] [phone] CERVICALGIA (Primary Dx) Social History Tobacco Use Types Packs/Day Years Used Date Smoking Tobacco: Never Assessed Comments Unknown Sex and Gender Information Value Date Recorded Sex Assigned at Not on file Legal Sex Female 5:01 AM PROTOTYPE ENGINEER MANAGER Gender Identity Not on file Sexual Orientation Not on file documented as of this encounter Plan of Treatment Upcoming Encounters Date Type Department Care Team (Late st Contact Info) Description 10/11/2024 11:15 AM CDT Office Visit [facility] At [address] [place] [address] Esteban Dueñas MD [address] [place] [address] [address] [place] [address] documented as of this encounter Visit Diagnoses Diagnosis Cervicalgia- Primary documented in this encounter Care Teams Director Of Outside Sales Relationship Specialty Start Date End Date Vitaly Manzanares MD [address] [place] [address] PCP - General Family Practice 05/19/22 documented as of this encounter
--- OUTSIDE RECORDS SUMMARY | 2024-09-29 11:53 | XMS_ITS | Encounter Summary ---
Author Organization [facility] Address [address] [place] [address] Care Team Providers Care Engineering Executive Name Role Phone Vitaly Manzanares MD Primary Care Provider [phone] Encounter Details Date Type Department Care Team (Late st Contact Info) Description 09/26/2024 External Device Data [facility] ABSTRACTION Provider, Abstract NO ADDRESS ON FILE Social History Tobacco Use Types Packs/Day Years Used Date Smoking Tobacco: Never Smokeless Tobacco: Never Alcohol Use Standard Drinks/Week Comments Yes 1.7 (1 standard drink = 0.6 oz p ure alcohol) Comments No Sex and Gender Information Value Date Recorded Sex Assigned at Not on file Legal Sex Female 5:01 AM ROOF BOLTER 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 Gender Identity Not on file Sexual Orientation Not on file Occupation Industry Job Start Date Job End Date Not on file Not on file Not on file Not on file documented as of this encounter Plan of Treatment Upcoming Encounters Date Type Department Care Team (Late st Contact Info) Description 10/11/2024 11:15 AM CDT [facility] Visit [facility] At [address] [place] [address] Esteban Dueñas MD [address] [place] [address] [place] [address] documented as of this encounter Visit Diagnoses Not on filedocumented in this encounter Care Teams Engineering Executive Relationship Specialty Start Date End Date Vitaly Manzanares MD [address] [place] [address] PCP - General Family Practice 05/19/22 documented as of this encounter
--- OUTSIDE RECORDS SUMMARY | 2024-09-29 11:53 | XMS_ITS | Encounter Summary ---
Author Organization [facility] Address [address] [place] [address] Care Team Providers Care Computer Trainer Name Role Phone Vitaly Manzanares MD Primary Care Provider Encounter Details Date Type Department Care Team (Late st Contact Info) Description 02/07/2002 Outpatient Historical [facility] Internal Medicine [address] [place] [address] Gadiel Christensen MD [address] [place] [phone] Social History Tobacco Use Types Packs/Day Years Used Date Smoking Tobacco: Never Assessed Comments Unknown Sex and Gender Information Value Date Recorded Sex Assigned at Not on file Legal Sex Female 5:01 AM SENIOR SOFTWARE ENGINEER ANALYTICS Gender Identity Not on file Sexual Orientation Not on file documented as of this encounter Plan of Treatment Upcoming Encounters Date Type Department Care Team (Late st Contact Info) Description 10/11/2024 11:15 AM CDT Office Visit [facility] Heart and Vascular At [facility] [address] [facility] [address] [place] [address] Esteban Dueñas MD [facility] [address] [facility] [address] [place] [address] documented as of this encounter Visit Diagnoses Not on filedocumented in this encounter Care Teams Computer Trainer Relationship Specialty Start Date End Date Vitaly Manzanares MD [address] [place] [phone] PCP - General Family Practice 05/19/22 documented as of this encounter
--- OUTSIDE RECORDS SUMMARY | 2024-09-29 11:53 | XMS_ITS | Encounter Summary ---
Author Organization [facility] Address [address] [place] [address] Care Team Providers Care Fruit Harvester Name Role Phone Vitaly Manzanares MD Primary Care Provider [phone] Encounter Details Date Type Department Care Team (Late st Contact Info) Description 08/19/2005 Outpatient Historical [facility] Internal Medicine [address] [place] [address] Gadiel Christensen MD [address] [place] [phone] Social History Tobacco Use Types Packs/Day Years Used Date Smoking Tobacco: Never Assessed Comments Unknown Sex and Gender Information Value Date Recorded Sex Assigned at Not on file Legal Sex Female 5:01 AM ASSISTANT COUNSEL Gender Identity Not on file Sexual Orientation Not on file documented as of this encounter Plan of Treatment Upcoming Encounters Date Type Department Care Team (Late st Contact Info) Description 10/11/2024 11:15 AM CDT Office Visit [facility] Heart and Vascular At [facility] [address] [facility] [address] [place] [address] Esteban Dueñas MD [facility] [address] [facility] [address] [place] [address] documented as of this encounter Visit Diagnoses Not on filedocumented in this encounter Care Teams Fruit Harvester Relationship Specialty Start Date End Date Vitaly Manzanares MD [address] [place] [phone] PCP - General Family Practice 05/19/22 documented as of this encounter
--- OUTSIDE RECORDS SUMMARY | 2024-09-29 11:53 | XMS_ITS | Encounter Summary ---
Author Organization [facility] Address [address] [place] [address] Care Team Providers Care Tree Expert Name Role Phone Vitaly Manzanares MD Primary Care Provider [phone] Encounter Details Date Type Department Care Team (Late st Contact Info) Description 07/09/2004 Outpatient Historical [facility] Gadiel Christensen MD [address] [place] [phone] Social History Tobacco Use Types Packs/Day Years Used Date Smoking Tobacco: Never Assessed Comments Unknown Sex and Gender Information Value Date Recorded Sex Assigned at Not on file Legal Sex Female 5:01 AM CLOCK AND WATCH HANDS PAINTER Gender Identity Not on file Sexual Orientation Not on file documented as of this encounter Plan of Treatment Upcoming Encounters Date Type Department Care Team (Late st Contact Info) Description 10/11/2024 11:15 AM CDT Office Visit [facility] Heart and Vascular At [place] [address] [facility] [address] [place] [address] Esteban Dueñas MD [address] [place] [address] [address] [place] [address] documented as of this encounter Visit Diagnoses Not on filedocumented in this encounter Care Teams Tree Expert Relationship Specialty Start Date End Date Vitaly Manzanares MD [address] [place] [address] PCP - General Family Practice 05/19/22 documented as of this encounter
--- OUTSIDE RECORDS SUMMARY | 2024-09-29 11:53 | XMS_ITS | Encounter Summary ---
Author Organization [facility] Address [address] [place] [address] Care Team Providers Care Deputy Director Of Finance Name Role Phone Vitaly Manzanares MD Primary Care Provider Encounter Details Date Type Department Care Team (Late st Contact Info) Description 01/26/2006 Outpatient Historical [facility] Internal Medicine [address] [place] [address] Gadiel Christensen MD [address] [place] [phone] Social History Tobacco Use Types Packs/Day Years Used Date Smoking Tobacco: Never Assessed Comments Unknown Sex and Gender Information Value Date Recorded Sex Assigned at Not on file Legal Sex Female 5:01 AM SALON SHAMPOO ASSISTANT Gender Identity Not on file Sexual Orientation Not on file documented as of this encounter Plan of Treatment Upcoming Encounters Date Type Department Care Team (Late st Contact Info) Description 10/11/2024 11:15 AM CDT Office Visit [facility] Heart and Vascular At [facility] [address] [facility] [address] [place] [address] Esteban Dueñas MD [facility] [address] [facility] [address] [place] [address] documented as of this encounter Visit Diagnoses Not on filedocumented in this encounter Care Teams Deputy Director Of Finance Relationship Specialty Start Date End Date Vitaly Manzanares MD [address] [place] [phone] PCP - General Family Practice 05/19/22 documented as of this encounter
--- OUTSIDE RECORDS SUMMARY | 2024-09-29 11:53 | XMS_ITS | Encounter Summary ---
Author Organization [facility] Address [address] [place] [address] Care Team Providers Care Voucher Clerk Name Role Phone Vitaly Manzanares MD Primary Care Provider [phone] Encounter Details Date Type Department Care Team (Latest Contact Info) Description 06/07/2004 Outpatient Historical [facility] Gadiel Christensen MD [address] [place] [phone] DISC DEGENERATION NOS (Primary Dx) Social History Tobacco Use Types Packs/Day Years Used Date Smoking Tobacco: Never Assessed Comments Unknown Sex and Gender Information Value Date Recorded Sex Assigned at Not on file Legal Sex Female 5:01 AM SAWING AND ASSEMBLY SUPERVISOR Gender Identity Not on file Sexual Orientation Not on file documented as of this encounter Plan of Treatment Upcoming Encounters Date Type Department Care Team (Late st Contact Info) Description 10/11/2024 11:15 AM CDT Office Visit [facility] Heart and Vascular At [address] [place] [address] Esteban Dueñas MD [facility] [address] [facility] [address] [place] [address] documented as of this encounter Visit Diagnoses Diagnosis Degeneration of intervertebral disc, site unspecified- Primary documented in this encounter Care Teams Voucher Clerk Relationship Specialty Start Date End Date Vitaly Manzanares MD [address] [place] [address] PCP - General Family Practice 05/19/22 documented as of this encounter
--- OUTSIDE RECORDS SUMMARY | 2024-09-29 11:53 | XMS_ITS | Encounter Summary ---
Author Organization [facility] Address [address] [place] [address] Care Team Providers Care Program Director/Air Personality Name Role Phone Vitaly Manzanares MD Primary Care Provider [phone] Encounter Details Date Type Department Care Team (Late st Contact Info) Description 11/07/2001 Outpatient Historical [facility] Internal Medicine [address] [place] [address] Gadiel Christensen MD [address] [place] [phone] Social History Tobacco Use Types Packs/Day Years Used Date Smoking Tobacco: Never Assessed Comments Unknown Sex and Gender Information Value Date Recorded Sex Assigned at Not on file Legal 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 Female 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 Gender Identity Not on file Sexual Orientation Not on file documented as of this encounter Plan of Treatment Upcoming Encounters Date Type Department Care Team (Late st Contact Info) Description 10/11/2024 11:15 AM CDT Office Visit [facility] Heart and Vascular At [facility] [address] [facility] [address] [place] [address] Esteban Dueñas MD [facility] [address] [facility] [address] [place] [address] documented as of this encounter Visit Diagnoses Not on filedocumented in this encounter Care Teams Program Director/Air Personality Relationship Specialty Start Date End Date Vitaly Manzanares MD [address] [place] [address] PCP - General Family Practice 05/19/22 documented as of this encounter
--- OUTSIDE RECORDS SUMMARY | 2024-09-29 11:53 | XMS_ITS | Clinical Summary ---
Author Organization [facility] Address [address] [place] [address] Care Team Providers Care Professional Wrestler Name Role Phone Vitaly Manzanares MD Primary Care Provider Allergies Active Allergy [...] Breath/Wheezing,Rash High 02/24/2016 Naratriptan Rash Low 04/22/2007 Dabqmptivnbb-Bii-Ehnenfym Unknown 04/22/2007 Oseltamivir Phosphate Rash Low 04/22/2007 Penicillins Unknown 04/22/2007 As a child Pneumococcal Vaccine Anaphylaxis,Rash High 1 Prochlorperazine Edisylate Unknown 8 Propoxyphene Rash Low 04/22/2007 Spring Anaphylaxis,Shortnes s of Breath/Wheezing High 02/24/2016 Sulfa [...] as needed for Nausea. 100 Tablet 2 07/02/19 16 Active benzonatate (TESSALON) 200 mg capsule Take 200 mg by mouth 3 times daily. Not taking Active fluticasone (FLONASE) 50 mcg/spray [place], Suspension USE TWO SPRAYS IN EACH NOSTRIL ONCE DAILY. 48 Gram 3 11/30/19 18 Active Additional Information Patient taking differently: USE TWO SPRAYS IN EACH NOSTRIL ONCE DAILYPRN, Reported on 07/04/2024 albuterol HFA 90 mcg inhaler Take 2 Puffs by inhalation every 4 hours as needed for Wheezing. 8.5 Gram 3 11/30/19 18 Active acetaminophen-caff eine-butalbital (FIORICET) 325-40-50 mg tabletIndications: Migraine with aura and without status migrainosus, not intractable Take 1 Tablet by mouth every 4 hours as needed for Headaches. 100 Tablet 09/15/19 19 Active EPINEPHrine (EPIPEN) 0.3 mg/0.3 mL Auto-InjectorIndic ations:Aspirin allergy Inject 0.3 mL (0.3 mg) by intramuscular injection 1 time daily as needed for Anaphylaxis. 1 Package 09/15/19 19 Active HYDROcodone-acetam inophen (NORCO) 5-325 mg tabletIndications: Migraine with aura and without status migrainosus, not intractable,Histor y of uterine cancer Take 1 Tablet by mouth every 6 hours as needed for Pain, Moderate. Max Daily Amount: 4 Tablets 20 Tablet 05/22/19 21 Active calcium-cholecalci ferol 500 mg(1,250mg) -400 unit tablet Take 1 Tablet by mouth daily. Active acetaminophen (TYLENOL) 500 mg tablet Take 500 mg by mouth every 6 hours as needed. Not taking Active pantoprazole (PROTONIX) 40 mg Tablet, Delayed Release (E.C.) Take 40 mg by mouth 2 times daily. 05/29/19 23 Active IBUPROFEN ORAL Take by mouth. PRN Active alendronate (FOSAMAX) 70 mg tablet Take 1 Tablet by mouth every 7 days. 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 100 Capsule 3 12/13/19 24 Active isosorbide mononitrate (IMDUR) 120 mg Extended Release 24 hour tablet TAKE 1 TABLET (120 MG) BY MOUTH DAILY IN THE MORNING. 90 Tablet 3 01/25/20 24 Active ranolazine ER (RANEXA) 500 mg Extended Release 12 hour tablet TAKE 1 TABLET BY MOUTH EVERY 12 HOURS 180 Tablet 3 02/15/20 24 Active predniSONE (DELTASONE) 50 mg tablet Take 1 Tablet (50 mg) by mouth see administration instructions. Take 1 (50 mg) by mouth the day before procedure. Take 1 Tablet (50 mg) by mouth the morning of procedure. 2 Tablet 02/15/20 24 Active cilostazoL (PLETAL) 100 mg Tablet TAKE 1 TABLET (100 MG) BY MOUTH 2 TIMES DAILY BEFORE MEALS. 180 Tablet 3 04/24/19 25 Active atorvastatin (LIPITOR) 40 mg tabletIndications: Mixed hyperlipidemia TAKE 1 TABLET BY MOUTH EVERYDAY AT BEDTIME 90 Tablet 3 05/02/19 25 Active clopidogreL (PLAVIX) 75 mg Tablet TAKE 1 TABLET BY MOUTH EVERY DAY 90 Tablet 1 05/31/19 25 Active lisinopriL (PRINIVIL) 2.5 mg tabletIndications: Essential hypertension Take 1 Tablet (2.5 mg) by mouth 2 times daily. 180 Tablet 3 07/05/19 25 Active carvediloL (COREG) 12.5 mg tablet Take 1 Tablet (12.5 mg) by mouth 2 times daily. 180 Tablet 3 07/05/19 25 Active nitroglycerin (NITROSTAT) 0.4 mg Tablet, Sublingual Dissolve 1 tab under tongue, every 5 min, as needed for chest pain, for a total of 3 tabs. If pain persists, call 911. 25 Tablet 1 07/05/19 25 Active Active Problems Patient Care Coordination No te Formatting of this note migh t be different from the original. [facility] Full Review 02/25/16 tn Esteban Dueñas MD--Warp Knitter ([facility] ) Problem Noted Date Diagnosed Date Age-related osteoporosis, T -3.7 R fem neck Barry h 202006/30/2020 Allergy to influenza vaccine 02/20/2020 Allergy to Streptococcus pneumoniae vaccine 10/2019 Chronic fatigue 02/12/2020 Left ventricular systolic dysfunction, NYHA clas s 2 01/11/2017 S/P coronary artery stents p lacement, 02/26/16, 11/13/16, 05/19/22, 01/05, 02/23/24 12/07/2016 Coronary artery disease of n ative artery of [place] heart with stable angina pectoris 06/09/2016 Aspirin [...] Encounters Date Type Department Care Team Description 09/27/2024 External Device Data STL ABSTRACTION Provider, Abstract 09/26/2024 External Device Data STL ABSTRACTION Provider, Abstract 09/26/2024 Abstract [facility] [place] [address] [address] [place] [address] Esteban Dueñas MD 09/25/2024 Telephone [facility] [place] [address] [address] [place] [address] Esteban Dueñas MD Surgical Clearance 09/21/2024 Telephone [facility] At [address] [place] [address] Esteban Dueñas MD MEDICATION CLEARANCE 08/30/2024 External Device Data STL ABSTRACTION Provider, Abstract 08/29/2024 External Device Data STL ABSTRACTION Provider, Abstract 08/03/2024 External Device Data STL ABSTRACTION Provider, Abstract 07/04/2024 11:15 AM CDT Video Visit [facility] At [address] [place] [address] Esteban Dueñas MD Coronary artery disease of [place] artery of [place] heart with stable angina pectoris (Primary Dx); Essential hypertension; Left ventricular systolic dysfunction, NYHA class 2; Allergic reaction to dye, subsequent encounter; S/P coronary artery stents placement, 02/26/16, 11/13/16, 05/19/22, 01/05, 02/23/24; Pure hypercholesterolemi a; Chronic fatigue from Last 3 Months Immunizations Immunization Administration [...] on file 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 Gender Identity Not on file Sexual Orientation Not on file Occupation Industry Job Start Date Job End Date Not on file Not on file Not on file Not on file Last Filed Vital Signs Vital Sign Reading Time Taken Comments Blood Pressure 123/78 07/04/2024 10:11 AM CDT Pulse 75 07/04/2024 10:11 AM CDT Temperature 36.5 C (97.7 F) 07/04/2024 10:11 AM CDT Respiratory Rate 18 02/23/2024 12:00 PM TC OPERATOR Oxygen Saturation 94% 07/04/2024 10:11 AM CDT Inhaled Oxygen Concentration - - Weight 49.9 kg (110 lb) 07/04/2024 10:11 AM CDT Height 152.4 cm (5') 07/04/2024 10:11 AM CDT Body Mass Index 21.48 07/04/2024 10:11 AM CDT Plan of Treatment Upcoming Encounters Date Type Department Care Team (Late st Contact Info) Description 10/11/2024 11:15 AM CDT Office Visit [facility] [place] [address] [facility] [address] [place] [address] Esteban Dueñas MD [facility] [address] [facility] [address] [place] [address] Health Maintenance Due Date Last [...] 07/25/2020, Additional history exists INFLUENZA VACCINE (#1) 2024 OSTEOPOROSIS SCREENING 06/27/2025 06/27/2020, 2020 Medical Devices Implanted Type Area Memory Care Program Director Device Identifier Shelf Expiration Date Model / Serial / Lot Daniele- 016 Implanted:Qty : 1 on 02/26/2016 by Rony Deleon MD Stent Coronary [employer] 02/11/2017 / / [id number] Description:bare metal stent placed in the obtuse marginal coronary artery number 1 Adriana- 016 Implanted:Qty : 1 on 02/26/2016 by Rony Deleon MD Stent Coronary [employer] 05/12/2018 / / [id number] Description:bare metal stent placed in the right coronary artery Adrianael- 016 Implanted:Qty : 1 on 02/26/2016 by Rony Deleon MD Stent Coronary [employer] 04/14/2017 / / [id number] Description:bare metal stent placed in the right coronary artery Promus Premier- 017 Implanted:03/2016 by Arslan Gale MD (Quantity not on file) Stent [employer] 09/28/2017 / / [id number] Description:OM1 Promus Premier- 017 Implanted:03/2016 by Arslan Gale MD (Quantity not on file) Stent [employer] 09/28/2017 / / [id number] Description:RCA Promus Premier- 017 Implanted:03/2016 by Arslan Gale MD (Quantity not on file) Stent [employer] 02/14/2018 / / [id number] Description:rca Stent Synergy Xd 3.0x12mm Evrlms Elut [id number] - [id number] Implanted:Qty : 1 on 05/19/2022 by Conor Grimm MD at [facility] Stent Right: Coronary [employer] 12/15/2023 [id number] / / [id number] Stent Winfield [place] Temo 3.0x18mm Rx [id number] - [id number] Implanted:Qty : 1 on 12/17/2023 by Conor Grimm MD at [facility] Stent Right: Coronary [employer] [id number] 02/03/2026 [id number] / / [id number] Stent Dany [place] Temo 3.94r22vy Rx [id number] - [id number] Implanted:Qty : 1 on 02/23/2024 by Conor Grimm MD at [facility] Stent N/A: Coronary [employer] [id number] 04/26/2026 [id number] 15UX / / [id number] Procedures Procedure Name Priority Date/Time Associated [...] OR MORE SITES (06/27/2020) T-SCORE FEMUR [facility] T-SCORE FEMUR (LEFT) [facility] T-SCORE FEMUR (RIGHT) [facility] T-SCORE FEMUR NECK [facility] T-SCORE FEMORAL NECK (LEFT) [facility] T-SCORE FEMORAL NECK (RIGHT) [facility] T-SCORE HEEL [facility] T-SCORE HEEL (LEFT) [facility] T-SCORE HEEL (RIGHT) [facility] T-SCORE H[facility] T-SCORE HIP (LEFT) [facility] T-SCORE HIP (RIGHT) [facility] T-SCORE WRIST [facility] T-SCORE WRIST (LEFT) [facility] T-SCORE WRIST (RIGHT) [facility] T-SCORE SPINE [facility] Anatomical Region Laterality Modality Other Esteban Casanova MD DIAGNOSTIC IMAGING ORD ERABLES Final Result * COLON CANCER SCREEN, STOOL DNA (10/17/2018 12:16 PM CDT) COLOGUARD RESULT Negative Not Applicable [facility] Comment: A negative result indicates a [...] screened with both Cologuard and colonoscopy. (Jordan Novak. et al, N Engl J Med 2014;370(14):1208-2536) COLOGUARD RE-SCREENING RECOMMENDATION: Periodic routine colorectal cancer screening is an important part of preventive healthcare for asymptomatic persons at average risk for colorectal cancer. Following a negative Cologuard result, the [place] [employer] Society and U.S. Multi-Society Task Force screening guidelines recommend a Cologuard re-screening interval of 3 years. References: [place] [employer] Society (ACS). Colorectal cancer prevention and early detection. [place], [place]: [place] [employer] Society; [updated 2015Jul 06]. https://www.cancer.org/cancer/chcqh-nfjien-xlhwup/vbxzfdyrp-hwkpwowte-mlbnkiq/ac s-rec ommendations.html. Accessed November 12, 2017; Brayden DK, Amanda CR, Jacquie OLIVAS, Colorectal Cancer Screening: Recommendations for Physicians and Patients from the U.S. Multi-Society Task Force on Colorectal Cancer Screening, Am J Gastroenterology 2017; 112:1490-7815. Test Type: Composite algorithmic analysis of stool [...] can be accessed at the following location: www.Warp 9/results. Additional description of the Cologuard test process, warnings and precautions can be found at www.cologuardtest.com. Rx Only. 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 [place] [address] PCP - General Family Practice 05/19/22
--- OUTSIDE RECORDS SUMMARY | 2024-09-29 11:53 | XMS_ITS | Encounter Summary ---
Author Organization [facility] Address [address] [place] [address] Care Team Providers Care Funeral Home Director Name Role Phone Vitaly Manzanares MD Primary Care Provider [phone] Encounter Details Date Type Department Care Team (Late st Contact Info) Description 05/05/2002 Outpatient Historical HIS [facility] Gadiel Andrade MD [address] [place] [phone] SCREENING MAMM-MAILG NEOPL-OTHER (Primary Dx) Social History Tobacco Use Types Packs/Day Years Used Date Smoking Tobacco: Never Assessed Comments Unknown Sex and Gender Information Value Date Recorded Sex Assigned at Not on file 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 Gender Identity Not on file Sexual Orientation Not on file documented as of this encounter Plan of Treatment Upcoming Encounters Date Type Department Care Team (Late st Contact Info) Description 10/11/2024 11:15 AM CDT Office Visit [facility] At [address] [place] [address] Esteban Dueñas MD [address] [place] [address] [address] [place] [address] documented as of this encounter Visit Diagnoses Diagnosis Other screening mammogram- Primary documented in this encounter Care Teams Funeral Home Director Relationship Specialty Start Date End Date Vitaly Manzanares MD [address] [place] [address] PCP - General Family Practice 05/19/22 documented as of this encounter
--- OUTSIDE RECORDS SUMMARY | 2024-09-29 11:53 | XMS_ITS | Encounter Summary ---
Author Organization [facility] Address 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 Gender Identity Not on file Sexual Orientation Not on file documented as of this encounter Plan of Treatment Upcoming Encounters Date Type Department Care Team (Late st Contact Info) Description 10/11/2024 11:15 AM CDT Office Visit [facility] At [place] [address] [facility] [address] [place] [address] Esteban Dueñas MD [address] [place] [address] [address] [place] [address] documented as of this encounter Visit Diagnoses Not on filedocumented in this encounter Care Teams Real Estate Site Analyst Relationship Specialty Start Date End Date Vitaly Manzanares MD [address] [place] [address] PCP - General Family Practice 05/19/22 documented as of this encounter
--- OUTSIDE RECORDS SUMMARY | 2024-09-29 11:53 | XMS_ITS | Encounter Summary ---
Author Organization [facility] Address [address] [place] [address] Care Team Providers Care Gin Clerk Name Role Phone Vitaly Manzanares MD Primary Care Provider Encounter Details Date Type Department Care Team (Late st Contact Info) Description 06/22/2005 Outpatient Historical [facility] Internal Medicine [place] [address] [place] [address] Gadiel Christensen MD [address] [place] [phone] Social History Tobacco Use Types Packs/Day Years Used Date Smoking Tobacco: Never Assessed Comments Unknown Sex and Gender Information Value Date Recorded Sex Assigned at Not on file Legal 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 Female 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 Gender Identity Not on file Sexual Orientation Not on file documented as of this encounter Plan of Treatment Upcoming Encounters Date Type Department Care Team (Late st Contact Info) Description 10/11/2024 11:15 AM CDT Office Visit [facility] V[facility] At [facility] [address] [facility] [address] [place] [address] Esteban Dueñas MD [facility] [address] [facility] [address] [place] [address] documented as of this encounter Visit Diagnoses Not on filedocumented in this encounter Care Teams Gin Clerk Relationship Specialty Start Date End Date Vitaly Manzanares MD [address] [place] [address] PCP - General Family Practice 05/19/22 documented as of this encounter
--- OUTSIDE RECORDS SUMMARY | 2024-09-29 11:53 | XMS_ITS | Encounter Summary ---
Author Organization [facility] Address [address] [place] [address] Care Team Providers Care Medical Physicist Name Role Phone Vitaly Manzanares MD Primary Care Provider Encounter Details Date Type Department Care Team (Late st Contact Info) Description 10/19/2002 Outpatient Historical [facility] Internal Medicine [place] [address] [place] [address] Gadiel Christensen MD [address] [place] [phone] Social History Tobacco Use Types Packs/Day Years Used Date Smoking Tobacco: Never Assessed Comments Unknown Sex and Gender Information Value Date Recorded Sex Assigned at Not on file 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 Gender Identity Not on file Sexual Orientation Not on file documented as of this encounter Plan of Treatment Upcoming Encounters Date Type Department Care Team (Late st Contact Info) Description 10/11/2024 11:15 AM CDT Office Visit [facility] Vascular At [facility] [address] [facility] [address] [place] [address] Esteban Dueñas MD [facility] [address] [facility] [address] [place] [address] documented as of this encounter Visit Diagnoses Not on filedocumented in this encounter Care Teams Medical Physicist Relationship Specialty Start Date End Date Vitaly Manzanares MD [address] [place] [address] PCP - General Family Practice 05/19/22 documented as of this encounter
--- OUTSIDE RECORDS SUMMARY | 2024-09-29 11:53 | XMS_ITS | Encounter Summary ---
Author Organization [facility] Address [address] [place] [address] Care Team Providers Care Cdl Service Technician Name Role Phone Vitaly Manzanares MD Primary Care Provider [phone] Encounter Details Date Type Department Care Team (Late st Contact Info) Description 05/15/2002 Outpatient Historical [facility] Internal Medicine [place] [id number] [place] [address] Gadiel Christensen MD [address] [place] [phone] Social History Tobacco Use Types Packs/Day Years Used Date Smoking Tobacco: Never Assessed Comments Unknown Sex and Gender Information Value Date Recorded Sex Assigned at Not on file Legal Sex Female 5:01 AM COMMUNICATIONS TECH Gender Identity Not on file Sexual Orientation Not on file documented as of this encounter Plan of Treatment Upcoming Encounters Date Type Department Care Team (Late st Contact Info) Description 10/11/2024 11:15 AM CDT Office Visit [facility] At [facility] [address] [facility] [address] [place] [address] Esteban Dueñas MD [facility] [address] [facility] [address] [place] [address] documented as of this encounter Visit Diagnoses Not on filedocumented in this encounter Care Teams Cdl Service Technician Relationship Specialty Start Date End Date Vitaly Manzanares MD [address] [place] [address] PCP - General Family Practice 05/19/22 documented as of this encounter
--- OUTSIDE RECORDS SUMMARY | 2024-09-29 11:53 | XMS_ITS | Encounter Summary ---
Author Organization [facility] Address 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 Gender Identity Not on file Sexual Orientation Not on file documented as of this encounter Plan of Treatment Upcoming Encounters Date Type Department Care Team (Late st Contact Info) Description 10/11/2024 11:15 AM CDT Office Visit [facility] Heart and Vascular At [address] [place] [address] Esteban Dueñas MD [address] [place] [address] [address] [place] [address] documented as of this encounter [...] INTERFACE SYSTEM Comment: Lab test performed by: [facility] [id number] [place] [address] DEMAR BUCK MD 10/02/2005 3:26 PM CDT Gadiel Christensen MD CHEMISTRY ORDERABLES COM Final Result Performing Organization Address [facility] de Phone Number INTERFACE SYSTEM Refer to clinic/hospital department * MAGNESIUM LEVEL (10/02/2005 3:26 PM CDT) MAGNESIUM 1.7 1.5 - 2.5 mg/dL INTERFACE SYSTEM 10/02/2005 3:26 PM CDT Gadiel Christensen MD CHEMISTRY ORDERABLES Final Res ult Performing Organization Address [facility] de Phone Number INTERFACE SYSTEM Refer [...] ORDERABLES Final Res ult Performing Organization Address City/[facility] Co de Phone Number INTERFACE SYSTEM Refer to clinic/hospital department documented in this encounter Visit Diagnoses Diagnosis Hypopotassemia- Primary documented in this encounter Care Teams Wireline Field Operator Relationship Specialty Start Date End Date Vitaly Manzanares MD [address] [place] [address] PCP - General Family Practice 05/19/22 documented as of this encounter
--- OUTSIDE RECORDS SUMMARY | 2024-09-29 11:53 | XMS_ITS | Encounter Summary ---
Author Organization [facility] Address 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 Female 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 Gender Identity Not on file Sexual Orientation Not on file documented as of this encounter Plan of Treatment Upcoming Encounters Date Type Department Care Team (Late Contact Info) Description 10/11/2024 11:15 AM CDT Office Visit [facility] Heart and Vascular At [place] [address] [facility] [address] [place] [address] Esteban Dueñas MD [facility] [address] [facility] [address] [place] [address] documented as of this encounter Visit Diagnoses Not on filedocumented in this encounter Care Teams Transplanter Orchid Relationship Specialty Start Date End Date Vitaly Manzanares MD [address] [place] [address] PCP - General Family Practice 05/19/22 documented as of this encounter
--- OUTSIDE RECORDS SUMMARY | 2024-09-29 11:53 | XMS_ITS | Encounter Summary ---
Author Organization [facility] Address [address] [place] [address] Care Team Providers Care Clinical Leader Name Role Phone Vitaly Manzanares MD Primary Care Provider Encounter Details Date Type Department Care Team (Late st Contact Info) Description 05/19/2005 Outpatient Historical [facility] Internal Medicine [place] [address] [place] [address] Gadiel Christensen MD [address] [place] [phone] Social History Tobacco Use Types Packs/Day Years Used Date Smoking Tobacco: Never Assessed Comments Unknown Sex and Gender Information Value Date Recorded Sex Assigned at Not on file Legal Sex Female 5:01 AM ELECTROPHYSIOLOGY TECH Gender Identity Not on file Sexual Orientation Not on file documented as of this encounter Plan of Treatment Upcoming Encounters Date Type Department Care Team (Late st Contact Info) Description 10/11/2024 11:15 AM CDT Office Visit [facility] Heart and Vascular At [facility] [address] [facility] [address] [place] [address] Esteban Dueñas MD [facility] [address] [facility] [address] [place] [address] documented as of this encounter Visit Diagnoses Not on filedocumented in this encounter Care Teams Clinical Leader Relationship Specialty Start Date End Date Vitaly Manzanares MD [address] [place] [address] PCP - General Family Practice 05/19/22 documented as of this encounter
--- OUTSIDE RECORDS SUMMARY | 2024-09-29 11:54 | XMS_ITS | Encounter Summary ---
Author Organization [facility] Address [address] [place] [address] Care Team Providers Care Supervisor Carbon Electrodes Name Role Phone Vitaly Manzanares MD Primary Care Provider [phone] Encounter Details Date Type Department Care Team (Late st Contact Info) Description 01/15/2003 Outpatient Historical [facility] Internal Medicine [place] [address] [place] [address] Gadiel Christensen MD [address] [place] [phone] Social History Tobacco Use Types Packs/Day Years Used Date Smoking Tobacco: Never Assessed Comments Unknown Sex and Gender Information Value Date Recorded Sex Assigned at Not on file Legal Sex Female 5:01 AM 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 [address] [place] [address] documented as of this encounter Visit Diagnoses Not on filedocumented in this encounter Care Teams Supervisor Carbon Electrodes Relationship Specialty Start Date End Date Vitaly Manzanares MD [address] [place] [address] PCP - General Family Practice 05/19/22 documented as of this encounter
--- OUTSIDE RECORDS SUMMARY | 2024-09-29 11:54 | XMS_ITS | Encounter Summary ---
Author Organization [facility] Address [address] [place] [address] Care Team Providers Care Customer Support Professional Name Role Phone Vitaly Manzanares MD Primary Care Provider Encounter Details Date Type Department Care Team (Late st Contact Info) Description 01/25/2003 Outpatient Historical [facility] Internal Medicine [place] [address] [place] [address] Gadiel Christensen MD [address] [place] [phone] Social History Tobacco Use Types Packs/Day Years Used Date Smoking Tobacco: Never Assessed Comments Unknown Sex and Gender Information Value Date Recorded Sex Assigned at Not on file Legal Sex Female 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 [address] [facility] [address] [place] [address] Esteban Dueñas MD [facility] [address] [facility] [address] [place] [address] documented as of this encounter Visit Diagnoses Not on filedocumented in this encounter Care Teams Customer Support Professional Relationship Specialty Start Date End Date Vitaly Manzanares MD [address] [place] [address] PCP - General Family Practice 05/19/22 documented as of this encounter
--- OUTSIDE RECORDS SUMMARY | 2024-09-29 11:54 | XMS_ITS | Clinical Summary ---
Author Organization [facility] Address [facility] [place] [address] Care Team Providers Care Blood And Plasma Laboratory Assistant Name Role Phone Esteban Casanova MD Primary [...] on file Legal Sex Female 1:00 PM TREE LOADER MEAT Gender Identity Not on file Sexual Orientation [...] 8:59 AM CDT Height 154.9 cm (5' 1) 05/22/2019 9:55 AM CDT Body Mass Index [...] this topic Medical Devices Implanted Type Area Security Developer Device Identifier Shelf Expiration Date Model / Serial / Lot Iol [place] [employer] Zcboo - [id number] Implanted:Qty: 1 on 05/22/2019 by Mike Madrigal MD at [facility] Lens [employer] 07/18/2021 [id number] / / [id number] Iol [employer] Zcboo - [id number] Implanted:Qty: 1 on 11/27/2019 by Mike Madrigal MD at [facility] Lens Right: Eye [employer] 09/25/2023 ZCB00 / [id number] / Explanted Type Area Security Developer Device Identifier Shelf Expiration Date Model / Serial / Lot 3 Coronary Stents Insurance [employer] Care Teams Blood And Plasma Laboratory Assistant Relationship Specialty [place] [address] [place] [address] PCP - General INTERNAL MEDICINE 05/16/19
--- OUTSIDE RECORDS SUMMARY | 2024-09-29 11:54 | XMS_ITS | Encounter Summary ---
Author Organization [facility] Address [address] [place] [address] Care Team Providers Care Elementary [employer] Art Teacher Name Role Phone Vitaly Manzanares MD Primary Care Provider [phone] Encounter Details Date Type Department Care Team (Late st Contact Info) Description 05/06/2004 Outpatient Historical [facility] Gadiel Andrade MD [address] [place] [phone] ABNORMAL FINDING-SKULL & HEAD (Primary Dx) Social History Tobacco Use Types Packs/Day Years Used Date Smoking Tobacco: Never Assessed Comments Unknown Sex and Gender Information Value Date Recorded Sex Assigned at Not on file Legal Sex Female 5:01 AM EDUCATIONAL SPECIALIST Gender Identity Not on file Sexual Orientation Not on file documented as of this encounter Plan of Treatment Upcoming Encounters Date Type Department Care Team (Late Contact Info) Description 10/11/2024 11:15 AM CDT Office Visit [facility] Heart and Vascular At [address] [place] [address] Esteban Dueñas MD [address] [place] [address] [address] [place] [address] documented as of this encounter Visit Diagnoses Diagnosis Nonspecific (abnormal) findings on radiological and other examination of skull and head- Primary documented in this encounter Care Teams Elementary [employer] Art Teacher Relationship Specialty Start Date End Date Vitaly Manzanares MD [address] [place] [address] PCP - General Family Practice 05/19/22 documented as of this encounter
--- OUTSIDE RECORDS SUMMARY | 2024-09-29 11:54 | XMS_ITS | Encounter Summary ---
Author Organization [facility] Address [address] [place] [address] Care Team Providers Care Control Technician Name Role Phone Vitaly Manzanares MD Primary Care Provider Encounter Details Date Type Department Care Team (Late st Contact Info) Description 11/27/2003 Outpatient Historical [facility] Internal Medicine [place] [address] [place] [address] Gadiel Christensen MD [address] [place] [phone] Social History Tobacco Use Types Packs/Day Years Used Date Smoking Tobacco: Never Assessed Comments Unknown Sex and Gender Information Value Date Recorded Sex Assigned at Not on file Legal Sex Female 5:01 AM FILTER 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 Gender Identity Not on file Sexual Orientation Not on file documented as of this encounter Plan of Treatment Upcoming Encounters Date Type Department Care Team (Late st Contact Info) Description 10/11/2024 11:15 AM CDT Office Visit [facility] Heart and Vascular At [facility] [address] [facility] [address] [place] [address] Esteban Dueñas MD [facility] [address] [facility] [address] [place] [address] documented as of this encounter Visit Diagnoses Not on filedocumented in this encounter Care Teams Control Technician Relationship Specialty Start Date End Date Vitaly Manzanares MD [address] [place] [address] PCP - General Family Practice 05/19/22 documented as of this encounter
--- OUTSIDE RECORDS SUMMARY | 2024-09-29 11:54 | XMS_ITS | Encounter Summary ---
Author Organization [facility] Address 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 Gender Identity Not on file Sexual Orientation Not on file documented as of this encounter Plan of Treatment Upcoming Encounters Date Type Department Care Team (Late st Contact Info) Description 10/11/2024 11:15 AM CDT Office Visit [facility] Heart and Vascular At [address] [place] [address] Esteban Dueñas MD [address] [place] [address] [place] [address] documented as of this encounter Visit Diagnoses Diagnosis Unspecified sinusitis (chronic)- Primary documented in this encounter Care Teams Aircraft Navigator Relationship Specialty Start Date End Date Vitaly Manzanares MD [address] [place] [address] PCP - General Family Practice 05/19/22 documented as of this encounter
--- OUTSIDE RECORDS SUMMARY | 2024-09-29 11:54 | XMS_ITS | Encounter Summary ---
Author Organization [facility] Address [address] [place] [address] Care Team Providers Care Electric Razor Assembler Name Role Phone Vitaly Manzanares MD Primary Care Provider Encounter Details Date Type Department Care Team (Late st Contact Info) Description 08/29/2003 Outpatient Historical [facility] Internal Medicine [place] [address] [place] [address] Gadiel Christensen MD [address] [place] [phone] Social History Tobacco Use Types Packs/Day Years Used Date Smoking Tobacco: Never Assessed Comments Unknown Sex and Gender Information Value Date Recorded Sex Assigned at Not on file Legal Sex Female 5:01 AM ENGINEERING PRODUCTION 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 [address] [place] [address] documented as of this encounter Visit Diagnoses Not on filedocumented in this encounter Care Teams Electric Razor Assembler Relationship Specialty Start Date End Date Vitaly Manzanares MD [address] [place] [address] PCP - General Family Practice 05/19/22 documented as of this encounter
--- OUTSIDE RECORDS SUMMARY | 2024-09-29 11:54 | XMS_ITS | Encounter Summary ---
Author Organization [facility] Address [address] [place] [address] Care Team Providers Care Special Forces Engineer Sergeant Name Role Phone Vitaly Manzanares MD Primary Care Provider [phone] Encounter Details Date Type Department Care Team (Late st Contact Info) Description 01/28/2004 Outpatient Historical [facility] Internal Medicine [place] [address] [place] [address] Gadiel Christensen MD [address] [place] [phone] Social History Tobacco Use Types Packs/Day Years Used Date Smoking Tobacco: Never Assessed Comments Unknown Sex and Gender Information Value Date Recorded Sex Assigned at Not on file Legal Sex Female 5:01 AM RADIO COMMUNICATION COORDINATOR Gender Identity Not on file Sexual Orientation Not on file documented as of this encounter Plan of Treatment Upcoming Encounters Date Type Department Care Team (Late st Contact Info) Description 10/11/2024 11:15 AM CDT Office Visit [facility] Heart and Vascular At [facility] [address] [facility] [address] [place] [address] Esteban Dueñas MD [facility] [address] [facility] [address] [place] [address] documented as of this encounter Visit Diagnoses Not on filedocumented in this encounter Care Teams Special Forces Engineer Sergeant Relationship Specialty Start Date End Date Vitaly Manzanares MD [address] [place] [address] PCP - General Family Practice 05/19/22 documented as of this encounter
--- OUTSIDE RECORDS SUMMARY | 2024-09-29 11:54 | XMS_ITS | Encounter Summary ---
Author Organization [facility] Address [address] [place] [address] Care Team Providers Care Electrical Instrumentation Technician Name Role Phone Vitaly Manzanares MD Primary Care Provider [phone] Encounter Details Date Type Department Care Team (Late st Contact Info) Description 05/05/2004 Outpatient Historical [facility] Internal Medicine [place] [address] [place] [address] Gadiel Christensen MD [address] [place] [phone] Social History Tobacco Use Types Packs/Day Years Used Date Smoking Tobacco: Never Assessed Comments Unknown Sex and Gender Information Value Date Recorded Sex Assigned at Not on file Legal Sex Female 5:01 AM MERCHANDISING LEAD Gender Identity Not on file Sexual Orientation Not on file documented as of this encounter Plan of Treatment Upcoming Encounters Date Type Department Care Team (Late st Contact Info) Description 10/11/2024 11:15 AM CDT Office Visit [facility] Heart [facility]ascular [place] [address] [facility] [address] [place] [address] Esteban Dueñas MD [facility] [address] [facility] [address] [place] [address] documented as of this encounter Visit Diagnoses Not on filedocumented in this encounter Care Teams Electrical Instrumentation Technician Relationship Specialty Start Date End Date Vitaly Manzanares MD [address] [place] [address] PCP - General Family Practice 05/19/22 documented as of this encounter
--- OUTSIDE RECORDS SUMMARY | 2024-09-29 11:54 | XMS_ITS | Encounter Summary ---
Author Organization [facility] Address [address] [place] [address] Care Team Providers Care Steam Trap Worker Name Role Phone Vitaly Manzanares MD Primary Care Provider Encounter Details Date Type Department Care Team (Late st Contact Info) Description 04/04/2004 Outpatient Historical [facility] Gadiel Christensen MD [address] [place] [phone] DISC DIS NEC/NOS-UNSPEC (Primary Dx) Social History Tobacco Use Types Packs/Day Years Used Date Smoking Tobacco: Never Assessed Comments Unknown Sex and Gender Information Value Date Recorded Sex Assigned at Not on file Legal Sex Female 5:01 AM TRANSFORMER MOLDER Gender Identity Not on file Sexual Orientation Not on file documented as of this encounter Plan of Treatment Upcoming Encounters Date Type Department Care Team (Late Contact Info) Description 10/11/2024 11:15 AM CDT Office Visit [facility] Heart and Vascular At [address] [place] [address] Esteban Dueñas MD [address] [place] [address] [address] [place] [address] documented as of this encounter Visit Diagnoses Diagnosis Other and unspecified disc disorder of unspecified region- Primary documented in this encounter Care Teams Steam Trap Worker Relationship Specialty Start Date End Date Vitaly Manzanares MD [address] [place] [address] PCP - General Family Practice 05/19/22 documented as of this encounter
--- OUTSIDE RECORDS SUMMARY | 2024-09-29 11:54 | XMS_ITS | Encounter Summary ---
Author Organization [facility] Address [address] [place] [address] Care Team Providers Care Image Archivist Name Role Phone Vitaly Manzanares MD Primary Care Provider Encounter Details Date Type Department Care Team (Late st Contact Info) Description 02/23/2003 Outpatient Historical [facility] [address] [place] [phone] Esteban Dueñas MD [address] [place] [address] [address] [place] [address] Social History Tobacco Use Types Packs/Day Years Used Date Smoking Tobacco: Never Assessed Comments Unknown Sex and Gender Information Value Date Recorded Sex Assigned at Not on file Legal Sex Female 5:01 AM CARD STRIPPER Gender Identity Not on file Sexual Orientation Not on file documented as of this encounter Plan of Treatment Upcoming Encounters Date Type Department Care Team (Late st Contact Info) Description 10/11/2024 11:15 AM CDT Office Visit [facility] Heart and Vascular At [address] [place] [address] Esteban Dueñas MD [address] [place] [address] [address] [place] [address] documented as of this encounter Visit Diagnoses Not on filedocumented in this encounter Care Teams Image Archivist Relationship Specialty Start Date End Date Vitaly Manzanares MD [address] [place] [address] PCP - General Family Practice 05/19/22 documented as of this encounter
--- OUTSIDE RECORDS SUMMARY | 2024-09-29 11:54 | XMS_ITS | Encounter Summary ---
Author Organization [facility] Address 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 MANAGER Gender Identity Not on file Sexual Orientation Not on file documented as of this encounter Plan of Treatment Upcoming Encounters Date Type Department Care Team (Late st Contact Info) Description 10/11/2024 11:15 AM CDT Office Visit [facility] Heart and Vascular At [address] [place] [address] Esteban Dueñas MD [address] [place] [address] [address] [place] [address] documented as of this encounter Visit Diagnoses Diagnosis Chest pain, unspecified- Primary documented in this encounter Care Teams Field Marketing Manager Relationship Specialty Start Date End Date Vitaly Manzanares MD [address] [place] [address] PCP - General Family Practice 05/19/22 documented as of this encounter
--- OUTSIDE RECORDS SUMMARY | 2024-09-29 11:54 | XMS_ITS | Encounter Summary ---
Author Organization [facility] Address [address] [place] [address] Care Team Providers Care Product Support Specialist Name Role Phone Vitaly Manzanares MD Primary Care Provider Encounter Details Date Type Department Care Team (Latest Contact Info) Description 05/06/2004 Outpatient Historical [facility] Gadiel Christensen MD [address] [place] [phone] DISC DISPLACEMENT NOS (Primary Dx) Social History Tobacco Use Types Packs/Day Years Used Date Smoking Tobacco: Never Assessed Comments Unknown Sex and Gender Information Value Date Recorded Sex Assigned at Not on file Legal Sex Female 5:01 AM HAND DEICER ELEMENT WINDER Gender Identity Not on file Sexual Orientation Not on file documented as of this encounter Plan of Treatment Upcoming Encounters Date Type Department Care Team (Late st Contact Info) Description 10/11/2024 11:15 AM CDT Office Visit [facility] Heart and Vascular At [facility] [address] [facility] [address] [place] [address] Esteban Dueñas MD [address] [place] [address] [address] [place] [address] documented as of this encounter Visit Diagnoses Diagnosis Displacement of intervertebral disc, site unspecified, without myelopathy- Primary documented in this encounter Care Teams Product Support Specialist Relationship Specialty Start Date End Date Vitaly Manzanares MD [address] [place] [address] PCP - General Family Practice 05/19/22 documented as of this encounter
--- OUTSIDE RECORDS SUMMARY | 2024-09-29 11:54 | XMS_ITS | Encounter Summary ---
Author Organization [facility] Address [facility] [place] [address] Care Team Providers Care Brisket Puller Name Role Phone Esteban Casanova MD Primary Care Provider Encounter Details Date Type Department Care Team (Late st Contact Info) Description 11/21/2019 Prep for Procedure [facility] [address] [place] [address] Mike Madrigal MD [address] [place] [address] Social History Tobacco Use Types Packs/Day Years Used Date Smoking Tobacco: Never Smokeless Tobacco: Never Alcohol Use Standard Drinks/Week Comments Not Currently 0 (1 standard drink = 0.6 oz pur e alcohol) Comments No Sex and Gender Information Value Date Recorded Sex Assigned at Not on file Legal Sex Female 1:00 PM CAREER PLACEMENT SERVICES COUNSELOR Gender Identity Not on file Sexual Orientation [...] DETECTED NOT DETECTED 11/25/2019 4:01 PM CDT [facility] Comment: A Not Detected (negative) test [...] providers and patients using the following websites: https://www.Shot & Shop.[facility] On Interactive/home/Covid-19/HCP/NAAT/fact-sheet2 https://www.[employer]ot & Shop.[facility] [employer] [facility]/home/Covid-19/Patients/NAAT/ fact-sheet2 This test has been authorized by the FDA under an Emergency Use Authorization (EUA) for use by authorized laboratories. Due to the current public health emergency, [facility] is receiving a high volume of samples [...] about COVID-19 can be found at the [facility] website: www.Qool.[facility]/Covid19. Test performed at [facility] [address] [address] [place] [address] Director: NESSA MCNALLY DO,MPH FIRST TEST UNKNOWN 11/24/2019 3:42 PM CDT [facility] EMPLOYED IN HEALTHCARE NO 11/24/2019 3:42 PM CDT [facility] SYMPTOMATIC DEFINED BY CDC NO 11/24/2019 3:42 PM CDT [facility] DATE OF SYMPTOM ONSET NON-APPLICABLE 11/24/2019 3:42 PM CDT [facility] HOSPITALIZATION STATUS NO 11/24/2019 3:42 PM CDT [facility] PATIENT IN ICU NO 11/24/2019 3:42 PM CDT [facility] RESIDENT OF CONGREGATE CARE NO 11/24/2019 3:42 PM CDT [facility] NO 11/24/2019 3:42 PM CDT [facility] PATIENT'S RACE UNKNOWN 11/24/2019 3:42 PM CDT [facility] ETHNICITY UNKNOWN 11/24/2019 3:42 PM CDT [facility] SOURCE (QST) NASOPHARYNGEAL SWAB 11/24/2019 11:54 AM CDT [facility] NASOPHARYNGEAL SWAB / Unknown 11/24/2019 11:57 AM CDT us Mike Madrigal MD MICROBIOLOGY - GENERAL ORDERAB LES Final Result Performing Organization Address City/State/[facility] Co de Phone Number [facility] [address] [place] [address], [place] [phone] [facility] [id number] [place] [address], documented in this encounter Visit Diagnoses Diagnosis Preop testing- Primary Preoperative examination, unspecified documented in this encounter Additional Health Concerns Infection Onset Date Last Indicated Resolved Time COVID-19 Rule Out 11/24/2019 11/24/2019 11/25/2019 4:01 PM CDT documented as of this encounter Care Teams Brisket Puller Relationship Specialty [place] [address] [place] [address] PCP - General INTERNAL MEDICINE 05/16/19 documented as of this encounter
--- OUTSIDE RECORDS SUMMARY | 2024-09-29 11:54 | XMS_ITS | Encounter Summary ---
Author Organization [facility] Address [address] [place] [address] Care Team Providers Care Artist Consultant Name Role Phone Vitaly Manzanares MD Primary Care Provider Encounter Details Date Type Department Care Team (Late st Contact Info) Description 05/19/2004 Outpatient Historical [facility] MRI DEPT Gadiel Christensen MD [address] [place] [id number] ABNORMAL FINDING-SKULL & HEAD (Primary Dx) Social History Tobacco Use Types Packs/Day Years Used Date Smoking Tobacco: Never Assessed Comments Unknown Sex and Gender Information Value Date Recorded Sex Assigned at Not on file Legal Sex Female 5:01 AM DIRECTOR INSTITUTION Gender Identity Not on file Sexual Orientation Not on file documented as of this encounter Plan of Treatment Upcoming Encounters Date Type Department Care Team (Late Contact Info) Description 10/11/2024 11:15 AM CDT Office Visit [facility] Heart and Vascular At [address] [place] [address] Esteban Dueñas MD [address] [place] [address] [address] [place] [address] documented as of this encounter Visit Diagnoses Diagnosis Nonspecific (abnormal) findings on radiological and other examination of skull and head- Primary documented in this encounter Care Teams Artist Consultant Relationship Specialty Start Date End Date Vitaly Manzanares MD [address] [place] [address] PCP - General Family Practice 05/19/22 documented as of this encounter
--- OUTSIDE RECORDS SUMMARY | 2024-09-29 11:54 | XMS_ITS | Encounter Summary ---
Author Organization [facility] Address [address] [place] [address] Care Team Providers Care Grease Maker Head Name Role Phone Vitaly Manzanares MD Primary Care Provider [phone] Encounter Details Date Type Department Care Team (Late st Contact Info) Description 02/26/2003 Outpatient Historical [facility] Internal Medicine [address] [place] [address] Gadiel Christensen MD [address] [place] [phone] Social History Tobacco Use Types Packs/Day Years Used Date Smoking Tobacco: Never Assessed Comments Unknown Sex and Gender Information Value Date Recorded Sex Assigned at Not on file Legal Sex Female 5:01 AM DOGGY DAYCARE ACTIVITIES DIRECTOR Gender Identity Not on file Sexual Orientation Not on file documented as of this encounter Plan of Treatment Upcoming Encounters Date Type Department Care Team (Late st Contact Info) Description 10/11/2024 11:15 AM CDT Office Visit [facility] Heart and Vascular At [facility] [address] [facility] [address] [place] [address] Esteban Dueñas MD [facility] [address] [facility] [address] [place] [address] documented as of this encounter Visit Diagnoses Not on filedocumented in this encounter Care Teams Grease Maker Head Relationship Specialty Start Date End Date Vitaly Manzanares MD [address] [place] [address] PCP - General Family Practice 05/19/22 documented as of this encounter
--- OUTSIDE RECORDS SUMMARY | 2024-09-29 11:54 | XMS_ITS | Encounter Summary ---
Author Organization [facility] Address [address] [place] [address] Care Team Providers Care Rabbit Breeder Name Role Phone Vitaly Manzanares MD Primary Care Provider [phone] Encounter Details Date Type Department Care Team (Late st Contact Info) Description 12/28/2003 Outpatient Historical [facility] MAMM Gadiel Bardales MD [address] [place] [phone] SCREENING MAMM-MAILG NEOPL-OTHER (Primary Dx) Social History Tobacco Use Types Packs/Day Years Used Date Smoking Tobacco: Never Assessed Comments Unknown Sex and Gender Information Value Date Recorded Sex Assigned at Not on file Legal Sex Female 5:01 AM SENIOR ENVIRONMENTAL ENGINEER Gender Identity Not on file Sexual Orientation Not on file documented as of this encounter Plan of Treatment Upcoming Encounters Date Type Department Care Team (Late Contact Info) Description 10/11/2024 11:15 AM CDT Office Visit [facility] Heart and Vascular At [address] [place] [address] Esteban Dueñas MD [address] [place] [address] [address] [place] [address] documented as of this encounter Visit Diagnoses Diagnosis Other screening mammogram- Primary documented in this encounter Care Teams Rabbit Breeder Relationship Specialty Start Date End Date Vitaly Manzanares MD [address] [place] [address] PCP - General Family Practice 05/19/22 documented as of this encounter
--- OUTSIDE RECORDS SUMMARY | 2024-09-29 11:54 | XMS_ITS | Encounter Summary ---
Author Organization [facility] Address [address] [place] [address] Care Team Providers Care Field Sales Representative Name Role Phone Vitaly Manzanares MD Primary Care Provider Encounter Details Date Type Department Care Team (Late st Contact Info) Description 10/30/[address] [facility] Internal Medicine [address] [place] [address] Gadiel Christensen MD [address] [place] [phone] Social History Tobacco Use Types Packs/Day Years Used Date Smoking Tobacco: Never Assessed Comments Unknown Sex and Gender Information Value Date Recorded Sex Assigned at Not on file Legal Sex Female 5:01 AM HVAC RESIDENTIAL SERVICE TECHNICIAN Gender Identity Not on file Sexual Orientation Not on file documented as of this encounter Plan of Treatment Upcoming Encounters Date Type Department Care Team (Late st Contact Info) Description 10/11/2024 11:15 AM CDT Office Visit [facility] Heart and Vascular At [facility] [address] [facility] [address] [place] [address] Esteban Dueñas MD [facility] [address] [facility] [address] [place] [address] documented as of this encounter Visit Diagnoses Not on filedocumented in this encounter Care Teams Field Sales Representative Relationship Specialty Start Date End Date Vitaly Manzanares MD [address] [place] [address] PCP - General Family Practice 05/19/22 documented as of this encounter
--- OUTSIDE RECORDS SUMMARY | 2024-09-29 11:54 | XMS_ITS | Encounter Summary ---
Author Organization [facility] Address [address] [place] [address] Care Team Providers Care Stopping Builder Name Role Phone Vitaly Manzanares MD Primary Care Provider [phone] Encounter Details Date Type Department Care Team (Late st Contact Info) Description 06/15/2003 Outpatient Historical [facility] Internal Medicine [address] [place] [address] Gadiel Christensen MD [address] [place] [phone] Social History Tobacco Use Types Packs/Day Years Used Date Smoking Tobacco: Never Assessed Comments Unknown Sex and Gender Information Value Date Recorded Sex Assigned at Not on file Legal Sex Female 5:01 AM HAND GLASS CUTTER Gender Identity Not on file Sexual Orientation Not on file documented as of this encounter Plan of Treatment Upcoming Encounters Date Type Department Care Team (Late st Contact Info) Description 10/11/2024 11:15 AM CDT Office Visit [facility] Heart and Vascular At [facility] [address] [facility] [place] [address] Esteban Dueñas MD [facility] [address] [facility] [address] [place] [address] documented as of this encounter Visit Diagnoses Not on filedocumented in this encounter Care Teams Stopping Builder Relationship Specialty Start Date End Date Vitaly Manzanares MD [address] [place] [address] PCP - General Family Practice 05/19/22 documented as of this encounter
--- OUTSIDE RECORDS SUMMARY | 2024-09-29 11:54 | XMS_ITS | Clinical Summary ---
Author Organization [facility] Address [address] [place] [address] Phone Care Team Providers Care Levi Maker Name Role Phone Vitaly Manzanares MD Primary Care Provider [phone] Medications ISOSORBIDE DINITRATE PO Take by mouth. [...] Date Type Department Care Team Description 09/27/2024 1:30 PM CDT Outpatient Clinic Visit [facility] [address] [place] [address] Marcell Joyner, VERONA Adjustment disorder with depressed mood (Primary Dx) Discharge Disposition: Discharged to home or Selfcare 09/27/2024 Travel 09/04/2024 10:00 AM CDT [facility] [address] [place] [address] Marcell Joyner, VERONA Adjustment disorder with depressed mood (Primary Dx) Discharge Disposition: Discharged to home or Selfcare 09/04/2024 Travel 08/15/2024 10:00 AM CDT [facility] [address] [facility] [place] [place] [address] Marcell Joyner, VERONA Adjustment disorder with depressed mood (Primary Dx) Discharge Disposition: Discharged to home or Selfcare 08/14/2024 Travel 07/24/2024 9:45 AM CDT Outpatient Clinic Visit [facility] [address] [place] [address] Marcell Joyner, VERONA Adjustment disorder with depressed mood (Primary Dx) Discharge Disposition: Discharged to home or Selfcare 07/22/2024 Travel 06/30/2024 10:00 AM CDT [facility] [address] [facility] [place] [address] Marcell Joyner, VERONA Adjustment disorder with depressed mood (Primary Dx) Discharge Disposition: Discharged to home or Selfcare from Last 3 Months Family History Medical [...] Upcoming Encounters Date Type Department Care Team (Latest Contact Info) Description 10/20/2024 10:00 AM CDT [facility] [address] [place] [address] Marcell Joyner, VERONA [address] [place] [address] Discharge Disposition: Discharged to home or Selfcare Health Maintenance Due Date Last Done Comments Hepatitis C Virus (HCV) Screening 1950 TdaP Immunization 1950 Cologuard 1994 Colonoscopy 1994 Colorectal Cancer Screening 1994 Immunochemical Fecal Occult Blood 1994 Zoster Immunization (1 of 2) 12/21/1999 Respiratory Syncytial Virus (RSV) Immunization (Adult) (1 - Risk 60-74 years 1-dose series) 2009 Pneumococcal Immunization (5 0+ years) (2 of 2 - PCV) 01/10/2011 01/10/2010 DEXA Bone Density 06/27/2022 06/27/2020 Mammogram 10/15/2022 10/15/2021, 10/15/2021 SARS-COV-2 Immunization ( season) 2023 Influenza Immunization (#1) 2024 Hepatitis B Immunization Aged Out No longer eligible based on patient's age to complete this topic Human Papillomavirus (HPV) Immunization Aged Out No longer eligible b ased [...] Author Behavioral Health Behavioral Health On track(2024 1:36 PM CDT) Yes Marcell Joyner, VERONA Note: I need help coping with all my physical health issues and caregiver stress along with physical limitations from my heart. Goal/Objective: Improve coping skills. Anticipated Time Frame for Goal Completion: 6 months Goal Reviewed with: patient Readiness to change: Ready to change Department associated with goal: [facility] Steps to [...] sessions Insurance MEDICARE C AETNA Care Teams Levi Maker Relationship Specialty Start Date End Date Vitaly Manzanares MD [address] [place] [address] PCP - General Family Medicine 04/21/24
== END 2024-09-29 11:51 | disposition home or self-care (01) ==
LOC: CHSIMG 11:50
PROVIDERS: PCP Family Medicine; Visit Provider Obstetrics & Gynecology
DX: Z12.31 Encounter for screening mammogram for malignant neoplasm of breast (principal)
CPT/HCPCS: 77063; 77067

== ENCOUNTER 2024-10-26 14:26 | Outpatient (CLI) | payer MEDICARE, SELFPAY ==
--- NOTE | ~2024-10-26 | MR_ITS ---
EXAMINATION: MR brain/brain stem wo con DATE: 10/26/2024 15:04 INDICATION: Head injury TECHNIQUE: Magnetic resonance imaging (MRI) of the brain and brainstem was performed without intraven ous contrast. Sequences included sagittal and axial T1-weighted SE, axial diffusion-weighted FS SE, a xial T2*-weighted GRE, axial T2-weighted FLAIR, and axial T2-weighted FSE. Apparent diffusion coeffic ient (ADC) maps were created. COMPARISON: Head CT dated 07/28/2023 FINDINGS: There are no areas of restricted diffusion to suggest acute infarction. No intracranial hemorrhage or abnormal intracranial mass lesion. There are scattered areas of nonspecific increased T2-weighted si gnal intensity in the cerebral white matter, predominantly involving the deep and periventricular whi te matter. There are no intraparenchymal signal abnormalities seen on the other pulse sequences. Symm etric prominence of the sulci and and subarachnoid spaces overlying the convexities consistent with m ild age-appropriate diffuse cerebral volume loss. The ventricles are symmetric and normal in size. Th ere is a empty sella with CSF filling the majority of the sella and minimal amount of pituitary tis sushil flattened against the posterior inferior wall of the sella. There are no abnormal extra-axial flu id collections. Flow voids are seen in the cerebral arteries on the T2-weighted sequences consistent with their expected patency. Mild mucosal thickening the bilateral ethmoid sinuses. Changes of bilate ral intraocular lens replacement. Visualized orbits and soft tissues are unremarkable. IMPRESSION: 1. Normal aging brain with no acute intracranial process. 2. Chronic empty sella Reviewed, dictated and finalized at location A.
--- OUTSIDE RECORDS SUMMARY | 2024-10-26 14:29 | XMS_ITS | Encounter Summary ---
Author Organization [facility] Address [address] [place] [address] Care Team Providers Care Sheet Metal Superintendent Name Role Phone Vitaly Manzanares MD Primary Care Provider [phone] Encounter Details Date Type Department Care Team (Late st Contact Info) Description 08/29/2003 Outpatient Historical [facility] Internal Medicine [address] [place] [address] Gadiel Christensen MD [address] [place] [phone] Social History Tobacco Use Types Packs/Day Years Used Date Smoking Tobacco: Never Assessed Comments Unknown Sex and Gender Information Value Date Recorded Sex Assigned at Not on file Legal Sex Female 5:01 AM WEATHER STRIP INSTALLER Gender Identity Not on file Sexual Orientation Not on file documented as of this encounter Plan of Treatment Upcoming Encounters Date Type Department Care Team (Late Contact Info) Description 01/16/2025 10:30 AM WEATHER STRIP INSTALLER Office Visit [facility] Heart and Vascular At [address] [place] [address] Esteban Dueñas MD [address] [place] [address] [place] [address] documented as of this encounter Visit Diagnoses Not on filedocumented in this encounter Care Teams Sheet Metal Superintendent Relationship Specialty Start Date End Date Vitaly Manzanares MD [address] [place] [address] PCP - General Family Practice 05/19/22 documented as of this encounter
--- OUTSIDE RECORDS SUMMARY | 2024-10-26 14:29 | XMS_ITS | Encounter Summary ---
Author Organization [facility] Address [address] [place] [address] Care Team Providers Care Combination Machine Tool Setter Name Role Phone Vitaly Manzanares MD Primary Care Provider [phone] Encounter Details Date Type Department Care Team (Late st Contact Info) Description 05/15/2002 Outpatient Historical [facility] Internal Medicine [address] [place] [address] Gadiel Christensen MD [address] [place] [phone] Social History Tobacco Use Types Packs/Day Years Used Date Smoking Tobacco: Never Assessed Comments Unknown Sex and Gender Information Value Date Recorded Sex Assigned at Not on file Legal Sex Female 5:01 AM SENIOR TELECOMMUNICATIONS TECHNICIAN Gender Identity Not on file Sexual Orientation Not on file documented as of this encounter Plan of Treatment Upcoming Encounters Date Type Department Care Team (Late st Contact Info) Description 01/16/2025 10:30 AM SENIOR TELECOMMUNICATIONS TECHNICIAN Office Visit [facility] Heart and Vascular At [address] [place] [address] Esteban Dueñas MD [address] [place] [address] [address] [place] [address] documented as of this encounter Visit Diagnoses Not on filedocumented in this encounter Care Teams Combination Machine Tool Setter Relationship Specialty Start Date End Date Vitaly Manzanares MD [address] [place] [address] PCP - General Family Practice 05/19/22 documented as of this encounter
--- OUTSIDE RECORDS SUMMARY | 2024-10-26 14:29 | XMS_ITS | Encounter Summary ---
Author Organization [facility] Address [address] [place] [address] Care Team Providers Care Tool And Die Maker/Designer Name Role Phone Vitaly Manzanares MD Primary Care Provider [phone] Encounter Details Date Type Department Care Team (Late st Contact Info) Description 05/06/2004 Outpatient Historical [facility] Gadiel Andrade MD [address] [place] [phone] ABNORMAL FINDING-SKULL & HEAD (Primary Dx) Social History Tobacco Use Types Packs/Day Years Used Date Smoking Tobacco: Never Assessed Comments Unknown Sex and Gender Information Value Date Recorded Sex Assigned at Not on file Legal Sex Female 5:01 AM CLOTH WINDER Gender Identity Not on file Sexual Orientation Not on file documented as of this encounter Plan of Treatment Upcoming Encounters Date Type Department Care Team (Late Contact Info) Description 01/16/2025 10:30 AM CLOTH WINDER Office Visit [facility] Heart and Vascular At [address] [place] [address] Esteban Dueñas MD [address] [place] [address] [address] [place] [address] documented as of this encounter Visit Diagnoses Diagnosis Nonspecific (abnormal) findings on radiological and other examination of skull and head- Primary documented in this encounter Care Teams Tool And Die Maker/Designer Relationship Specialty Start Date End Date Vitaly Manzanares MD [address] [place] [address] PCP - General Family Practice 05/19/22 documented as of this encounter
--- OUTSIDE RECORDS SUMMARY | 2024-10-26 14:29 | XMS_ITS | Encounter Summary ---
Author Organization [facility] Address [address] [place] [address] Care Team Providers Care Electronic Equipment Maint Tech Name Role Phone Vitaly Manzanares MD Primary Care Provider [phone] Encounter Details Date Type Department Care Team (Late st Contact Info) Description 03/30/2001 Outpatient Historical [facility] Internal Medicine [address] [place] [address] Gadiel Christensen MD [address] [place] [phone] Social History Tobacco Use Types Packs/Day Years Used Date Smoking Tobacco: Never Assessed Comments Unknown Sex and Gender Information Value Date Recorded Sex Assigned at Not on file Legal Sex Female 5:01 AM SPOOLER RUBBER STRAND Gender Identity Not on file Sexual Orientation Not on file documented as of this encounter Plan of Treatment Upcoming Encounters Date Type Department Care Team (Late Contact Info) Description 01/16/2025 10:30 AM SPOOLER RUBBER STRAND Office Visit [facility] Heart and Vascular At [address] [place] [address] Esteban Dueñas MD [address] [place] [address] [address] [place] [address] documented as of this encounter Visit Diagnoses Not on filedocumented in this encounter Care Teams Electronic Equipment Maint Tech Relationship Specialty Start Date End Date Vitaly Manzanares MD [address] [place] [address] PCP - General Family Practice 05/19/22 documented as of this encounter
--- OUTSIDE RECORDS SUMMARY | 2024-10-26 14:29 | XMS_ITS | Encounter Summary ---
Author Organization [facility] Address [address] [place] [address] Care Team Providers Care Bronzer Name Role Phone Vitaly Manzanares MD Primary Care Provider [phone] Encounter Details Date Type Department Care Team (Latest Contact Info) Description 06/07/2004 Outpatient Historical [facility] Gadiel Christensen MD [address] [place] [phone] DISC DEGENERATION NOS (Primary Dx) Social History Tobacco Use Types Packs/Day Years Used Date Smoking Tobacco: Never Assessed Comments Unknown Sex and Gender Information Value Date Recorded Sex Assigned at Not on file Legal Sex Female 5:01 AM TURNER MACHINE Gender Identity Not on file Sexual Orientation Not on file documented as of this encounter Plan of Treatment Upcoming Encounters Date Type Department Care Team (Late st Contact Info) Description 01/16/2025 10:30 AM TURNER MACHINE Office Visit [facility] Heart and Vascular At [facility] [place] [address] [facility] [address] [place] [address] Esteban Dueñas MD [address] [place] [address] [address] [place] [address] documented as of this encounter Visit Diagnoses Diagnosis Degeneration of intervertebral disc, site unspecified- Primary documented in this encounter Care Teams Bronzer Relationship Specialty Start Date End Date Vitaly Manzanares MD [address] [place] [address] PCP - General Family Practice 05/19/22 documented as of this encounter
--- OUTSIDE RECORDS SUMMARY | 2024-10-26 14:29 | XMS_ITS | Encounter Summary ---
Author Organization [facility] Address [address] [place] [address] Care Team Providers Care Dyeing Machine Tender Name Role Phone Vitaly Manzanares MD Primary Care Provider [phone] Encounter Details Date Type Department Care Team (Late st Contact Info) Description 11/27/2003 Outpatient Historical [facility] Internal Medicine [id number] [place] [address] Gadiel Christensen MD [address] [place] [phone] Social History Tobacco Use Types Packs/Day Years Used Date Smoking Tobacco: Never Assessed Comments Unknown Sex and Gender Information Value Date Recorded Sex Assigned at Not on file Legal Sex Female 5:01 AM DESK OFFICER Gender Identity Not on file Sexual Orientation Not on file documented as of this encounter Plan of Treatment Upcoming Encounters Date Type Department Care Team (Late Contact Info) Description 01/16/2025 10:30 AM DESK OFFICER Office Visit [facility] Heart and Vascular At [address] [place] [address] Esteban Dueñas MD [address] [place] [address] [address] [place] [address] documented as of this encounter Visit Diagnoses Not on filedocumented in this encounter Care Teams Dyeing Machine Tender Relationship Specialty Start Date End Date Vitaly Manzanares MD [address] [place] [address] PCP - General Family Practice 05/19/22 documented as of this encounter
--- OUTSIDE RECORDS SUMMARY | 2024-10-26 14:29 | XMS_ITS | Encounter Summary ---
Author Organization [facility] Address [address] [place] [address] Care Team Providers Care Cover Maker Name Role Phone Vitaly Manzanares MD Primary Care Provider [phone] Encounter Details Date Type Department Care Team (Late st Contact Info) Description 12/30/[address] [facility] Internal Medicine [place] [address] [place] [address] Esteban Otto MD [address] [place] [address] Social History Tobacco Use Types Packs/Day Years Used Date Smoking Tobacco: Never Assessed Comments Unknown Sex and Gender Information Value Date Recorded Sex Assigned at Not on file Legal Sex Female 5:01 AM RECEIVING TELLER Gender Identity Not on file Sexual Orientation Not on file documented as of this encounter Plan of Treatment Upcoming Encounters Date Type Department Care Team (Late Contact Info) Description 01/16/2025 10:30 AM RECEIVING TELLER Office Visit [facility] Heart and Vascular At [address] [place] [address] Esteban Dueñas MD [address] [place] [address] [address] [place] [address] documented as of this encounter Visit Diagnoses Not on filedocumented in this encounter Care Teams Cover Maker Relationship Specialty Start Date End Date Vitaly Manzanares MD [address] [place] [address] PCP - General Family Practice 05/19/22 documented as of this encounter
--- OUTSIDE RECORDS SUMMARY | 2024-10-26 14:29 | XMS_ITS | Encounter Summary ---
Author Organization [facility] Address [address] [place] [address] Care Team Providers Care Pbx Manager Name Role Phone Vitaly Manzanares MD Primary Care Provider [phone] Encounter Details Date Type Department Care Team (Late st Contact Info) Description 10/19/2002 Outpatient Historical [facility] Internal Medicine [address] [place] [address] Gadiel Christensen MD [address] [place] [phone] Social History Tobacco Use Types Packs/Day Years Used Date Smoking Tobacco: Never Assessed Comments Unknown Sex and Gender Information Value Date Recorded Sex Assigned at Not on file Legal Sex Female 5:01 AM SCIENCE TUTOR Gender Identity Not on file Sexual Orientation Not on file documented as of this encounter Plan of Treatment Upcoming Encounters Date Type Department Care Team (Late Contact Info) Description 01/16/2025 10:30 AM SCIENCE TUTOR Office Visit [facility] Heart and Vascular At [address] [place] [address] Esteban Dueñas MD [address] [place] [address] [address] [place] [address] documented as of this encounter Visit Diagnoses Not on filedocumented in this encounter Care Teams Pbx Manager Relationship Specialty Start Date End Date Vitaly Manzanares MD [address] [place] [address] PCP - General Family Practice 05/19/22 documented as of this encounter
--- OUTSIDE RECORDS SUMMARY | 2024-10-26 14:29 | XMS_ITS | Encounter Summary ---
Author Organization [facility] Address [address] [place] [address] Care Team Providers Care Associate Veterinarian Name Role Phone Vitaly Manzanares MD Primary Care Provider [phone] Encounter Details Date Type Department Care Team (Late st Contact Info) Description 03/27/2004 Outpatient Historical [facility] Gadiel Christensen MD [address] [place] [phone] CHRONIC SINUSITIS NOS (Primary Dx) Social History Tobacco Use Types Packs/Day Years Used Date Smoking Tobacco: Never Assessed Comments Unknown Sex and Gender Information Value Date Recorded Sex Assigned at Not on file Legal Sex Female 5:01 AM EXECUTIVE VICE PRESIDENT BUSINESS DEVELOPMENT Gender Identity Not on file Sexual Orientation Not on file documented as of this encounter Plan of Treatment Upcoming Encounters Date Type Department Care Team (Late st Contact Info) Description 01/16/2025 10:30 AM EXECUTIVE VICE PRESIDENT BUSINESS DEVELOPMENT Office Visit [facility] Heart and Vascular At [address] [place] [address] Esteban Dueñas MD [address] [place] [address] [address] [place] [address] documented as of this encounter Visit Diagnoses Diagnosis Unspecified sinusitis (chronic)- Primary documented in this encounter Care Teams Associate Veterinarian Relationship Specialty Start Date End Date Vitaly Manzanares MD [address] [place] [address] PCP - General Family Practice 05/19/22 documented as of this encounter
--- OUTSIDE RECORDS SUMMARY | 2024-10-26 14:29 | XMS_ITS | Encounter Summary ---
Author Organization [facility] Address [address] [place] [address] Care Team Providers Care Perfume Maker Name Role Phone Vitaly Manzanares MD Primary Care Provider [phone] Encounter Details Date Type Department Care Team (Late st Contact Info) Description 02/26/2003 Outpatient Historical [facility] Internal Medicine [address] [place] [address] Gadiel Christensen MD [address] [place] [phone] Social History Tobacco Use Types Packs/Day Years Used Date Smoking Tobacco: Never Assessed Comments Unknown Sex and Gender Information Value Date Recorded Sex Assigned at Not on file Legal Sex Female 5:01 AM IVORY CARVER Gender Identity Not on file Sexual Orientation Not on file documented as of this encounter Plan of Treatment Upcoming Encounters Date Type Department Care Team (Late Contact Info) Description 01/16/2025 10:30 AM IVORY CARVER Office Visit [facility] Heart and Vascular At [address] [place] [address] Esteban Dueñas MD [address] [place] [address] [address] [place] [address] documented as of this encounter Visit Diagnoses Not on filedocumented in this encounter Care Teams Perfume Maker Relationship Specialty Start Date End Date Vitaly Manzanares MD [address] [place] [address] PCP - General Family Practice 05/19/22 documented as of this encounter
--- OUTSIDE RECORDS SUMMARY | 2024-10-26 14:29 | XMS_ITS | Encounter Summary ---
Author Organization [facility] Address [address] [place] [address] Care Team Providers Care Bullet Assembly Press Operator Name Role Phone Vitaly Manzanares MD Primary Care Provider [phone] Encounter Details Date Type Department Care Team (Late st Contact Info) Description 02/07/2002 Outpatient Historical [facility] Internal Medicine [address] [place] [address] Gadiel Christensen MD [address] [place] [phone] Social History Tobacco Use Types Packs/Day Years Used Date Smoking Tobacco: Never Assessed Comments Unknown Sex and Gender Information Value Date Recorded Sex Assigned at Not on file Legal Sex Female 5:01 AM TOWBOAT ENGINEER Gender Identity Not on file Sexual Orientation Not on file documented as of this encounter Plan of Treatment Upcoming Encounters Date Type Department Care Team (Late Contact Info) Description 01/16/2025 10:30 AM TOWBOAT ENGINEER Office Visit [facility] Heart and Vascular At [address] [place] [address] Esteban Dueñas MD [address] [place] [address] [address] [place] [address] documented as of this encounter Visit Diagnoses Not on filedocumented in this encounter Care Teams Bullet Assembly Press Operator Relationship Specialty Start Date End Date Vitaly Manzanares MD [address] [place] [address] PCP - General Family Practice 05/19/22 documented as of this encounter
--- OUTSIDE RECORDS SUMMARY | 2024-10-26 14:29 | XMS_ITS | Encounter Summary ---
Author Organization [facility] Address [address] [place] [address] Care Team Providers Care Information Technology Security Manager Name Role Phone Vitaly Manzanares MD Primary Care Provider [phone] Encounter Details Date Type Department Care Team (Late st Contact Info) Description 01/26/[address] [facility] Internal Medicine [address] [place] [address] Gadiel Christensen MD [address] [place] [phone] Social History Tobacco Use Types Packs/Day Years Used Date Smoking Tobacco: Never Assessed Comments Unknown Sex and Gender Information Value Date Recorded Sex Assigned at Not on file Legal Sex Female 5:01 AM KNOCKOUT WORKER Gender Identity Not on file Sexual Orientation Not on file documented as of this encounter Plan of Treatment Upcoming Encounters Date Type Department Care Team (Late Contact Info) Description 01/16/2025 10:30 AM KNOCKOUT WORKER Office Visit [facility] Heart and Vascular At [address] [place] [address] Esteban Dueñas MD [address] [place] [address] [address] [place] [address] documented as of this encounter Visit Diagnoses Not on filedocumented in this encounter Care Teams Information Technology Security Manager Relationship Specialty Start Date End Date Vitaly Manzanares MD [address] [place] [address] PCP - General Family Practice 05/19/22 documented as of this encounter
--- OUTSIDE RECORDS SUMMARY | 2024-10-26 14:29 | XMS_ITS | Encounter Summary ---
Author Organization [facility] Address [address] [place] [address] Care Team Providers Care Signing Agent Name Role Phone Vitaly Manzanares MD Primary Care Provider [phone] Encounter Details Date Type Department Care Team (Late st Contact Info) Description 06/04/2005 Outpatient Historical [facility] Internal Medicine [address] [place] [address] Gadiel Christensen MD [address] [place] [phone] Social History Tobacco Use Types Packs/Day Years Used Date Smoking Tobacco: Never Assessed Comments Unknown Sex and Gender Information Value Date Recorded Sex Assigned at Not on file Legal Sex Female 5:01 AM KNURLING MACHINE TENDER Gender Identity Not on file Sexual Orientation Not on file documented as of this encounter Plan of Treatment Upcoming Encounters Date Type Department Care Team (Late st Contact Info) Description 01/16/2025 10:30 AM KNURLING MACHINE TENDER Office Visit [facility] Heart and Vascular At [address] [place] [address] Esteban Dueñas MD [address] [place] [address] [address] [place] [address] documented as of this encounter Visit Diagnoses Not on filedocumented in this encounter Care Teams Signing Agent Relationship Specialty Start Date End Date Vitaly Manzanares MD [address] [place] [address] PCP - General Family Practice 05/19/22 documented as of this encounter
--- OUTSIDE RECORDS SUMMARY | 2024-10-26 14:29 | XMS_ITS | Encounter Summary ---
Author Organization [facility] Address [address] [place] [address] Care Team Providers Care Rn L And D Name Role Phone Vitaly Manzanares MD Primary Care Provider [phone] Encounter Details Date Type Department Care Team (Latest Contact Info) Description 10/02/2005 Outpatient Historical [facility] [place] [facility] Gadiel Christensen MD [address] [place] [phone] Hypopotassemia (Primary Dx) Social History Tobacco Use Types Packs/Day Years Used Date Smoking Tobacco: Never Assessed Comments Unknown Sex and Gender Information Value Date Recorded Sex Assigned at Not on file Legal Sex Female 5:01 AM POST ACUTE CARE NURSE PRACTITIONER Gender Identity Not on file Sexual Orientation Not on file documented as of this encounter Plan of Treatment Upcoming Encounters Date Type Department Care Team (Late st Contact Info) Description 01/16/2025 10:30 AM POST ACUTE CARE NURSE PRACTITIONER Office Visit [facility] Heart and Vascular At [address] [place] [address] Esteban Dueñas MD [address] [place] [address] [address] [place] [address] documented as of this encounter Procedures Procedure [...] INTERFACE SYSTEM Comment: [facility] [id number] [place] [address] DEMAR BUCK MD 10/02/2005 3:26 PM CDT Gadiel Christensen MD CHEMISTRY ORDERABLES COM Final Result Performing Organization Address City/State/[facility] Co de Phone Number INTERFACE SYSTEM Refer to clinic/hospital department * MAGNESIUM LEVEL (10/02/2005 3:26 PM CDT) MAGNESIUM 1.7 1.5 - 2.5 mg/dL INTERFACE SYSTEM 10/02/2005 3:26 PM CDT Gadiel Christensen MD CHEMISTRY ORDERABLES Final Res ult Performing Organization Address [facility] Co de Phone Number INTERFACE SYSTEM [...] mmol/L INTERFACE SYSTEM 10/02/2005 3:26 PM CDT Gadiel Christensen MD CHEMISTRY ORDERABLES Final Res ult Performing Organization Address City/State/[facility] Co de Phone Number INTERFACE SYSTEM Refer to clinic/hospital department documented in this encounter Visit Diagnoses Diagnosis Hypopotassemia- Primary documented in this encounter Care Teams Rn L And D Relationship Specialty Start Date End Date Vitaly Manzanares MD [address] [place] [address] PCP - General Family Practice 05/19/22 documented as of this encounter
--- OUTSIDE RECORDS SUMMARY | 2024-10-26 14:29 | XMS_ITS | Encounter Summary ---
Author Organization [facility] Address [address] [place] [address] Care Team Providers Care Strategic Business Development Name Role Phone Vitaly Manzanares MD Primary Care Provider [phone] Encounter Details Date Type Department Care Team (Late st Contact Info) Description 06/15/2003 Outpatient Historical [facility] Internal Medicine [address] [place] [address] Gadiel Christensen MD [address] [place] [phone] Social History Tobacco Use Types Packs/Day Years Used Date Smoking Tobacco: Never Assessed Comments Unknown Sex and Gender Information Value Date Recorded Sex Assigned at Not on file Legal Sex Female 5:01 AM WOOL AND PELT GRADER Gender Identity Not on file Sexual Orientation Not on file documented as of this encounter Plan of Treatment Upcoming Encounters Date Type Department Care Team (Late st Contact Info) Description 01/16/2025 10:30 AM WOOL AND PELT GRADER Office Visit [facility] Heart and Vascular At [address] [place] [address] Esteban Dueñas MD [address] [place] [address] [address] [place] [address] documented as of this encounter Visit Diagnoses Not on filedocumented in this encounter Care Teams Strategic Business Development Relationship Specialty Start Date End Date Vitaly Manzanares MD [address] [place] [address] PCP - General Family Practice 05/19/22 documented as of this encounter
--- OUTSIDE RECORDS SUMMARY | 2024-10-26 14:29 | XMS_ITS | Encounter Summary ---
Author Organization [facility] Address [address] [place] [address] Care Team Providers Care Manager Income Tax Name Role Phone Vitaly Manzanares MD Primary Care Provider [phone] Encounter Details Date Type Department Care Team (Late st Contact Info) Description 05/19/2004 Outpatient Historical [facility] DE[facility] Gadiel Christensen MD [address] [place] [phone] ABNORMAL FINDING-SKULL & HEAD (Primary Dx) Social History Tobacco Use Types Packs/Day Years Used Date Smoking Tobacco: Never Assessed Comments Unknown Sex and Gender Information Value Date Recorded Sex Assigned at Not on file Legal Sex Female 5:01 AM DIRECTOR OF CORPORATE REAL ESTATE Gender Identity Not on file Sexual Orientation Not on file documented as of this encounter Plan of Treatment Upcoming Encounters Date Type Department Care Team (Late Contact Info) Description 01/16/2025 10:30 AM DIRECTOR OF CORPORATE REAL ESTATE Office Visit [facility] Heart and Vascular At [address] [place] [address] Esteban Dueñas MD [address] [place] [address] [address] [place] [address] documented as of this encounter Visit Diagnoses Diagnosis Nonspecific (abnormal) findings on radiological and other examination of skull and head- Primary documented in this encounter Care Teams Manager Income Tax Relationship Specialty Start Date End Date Vitaly Manzanares MD [address] [place] [address] PCP - General Family Practice 05/19/22 documented as of this encounter
--- OUTSIDE RECORDS SUMMARY | 2024-10-26 14:29 | XMS_ITS | Encounter Summary ---
Author Organization [facility] Address [address] [place] [address] Care Team Providers Care Enameler Name Role Phone Vitaly Manzanares MD Primary Care Provider [phone] Encounter Details Date Type Department Care Team (Latest Contact Info) Description 05/06/2004 Outpatient Historical [facility] Gadiel Christensen MD [address] [place] [phone] DISC DISPLACEMENT NOS (Primary Dx) Social History Tobacco Use Types Packs/Day Years Used Date Smoking Tobacco: Never Assessed Comments Unknown Sex and Gender Information Value Date Recorded Sex Assigned at Not on file Legal Sex Female 5:01 AM TOP ICER Gender Identity Not on file Sexual Orientation Not on file documented as of this encounter Plan of Treatment Upcoming Encounters Date Type Department Care Team (Late st Contact Info) Description 01/16/2025 10:30 AM TOP ICER Office Visit [facility] Heart and Vascular At [address] [place] [address] Esteban Dueñas MD [address] [place] [address] [address] [place] [address] documented as of this encounter Visit Diagnoses Diagnosis Displacement of intervertebral disc, site unspecified, without myelopathy- Primary documented in this encounter Care Teams Enameler Relationship Specialty Start Date End Date Vitaly Manzanares MD [address] [place] [address] PCP - General Family Practice 05/19/22 documented as of this encounter
--- OUTSIDE RECORDS SUMMARY | 2024-10-26 14:29 | XMS_ITS | Clinical Summary ---
Author Organization [facility] Address [address] [place] [address] Care Team Providers Care Farm Or Ranch Animal Caretaker Name Role Phone Vitaly Manzanares MD Primary Care Provider [phone] Allergies Active Allergy Reactions Criticality Noted Date [...] Breath/Wheezing,Rash High 02/24/2016 Naratriptan Rash Low 04/22/2007 Dlgepnmtwqzb-Orw-Ayzwyhbx Unknown 04/22/2007 Oseltamivir Phosphate Rash Low 04/22/2007 Penicillins Unknown 04/22/2007 As a child Pneumococcal Vaccine Anaphylaxis,Rash High 1 Prochlorperazine Edisylate Unknown 8 Propoxyphene Rash Low 04/22/2007 [place] Anaphylaxis,Shortnes s of Breath/Wheezing High 02/24/2016 Sulfa [...] Not taking Active fluticasone (FLONASE) 50 mcg/spray [place], Suspension USE TWO SPRAYS IN EACH NOSTRIL ONCE DAILY. 48 Gram 3 11/30/19 18 Active Additional Information Patient taking differently: USE TWO SPRAYS IN EACH NOSTRIL ONCE DAILYPRN, Reported on 10/11/2024 albuterol HFA 90 mcg inhaler Take 2 [...] 200 mg CapsuleIndications :Coronary artery disease involving [place] heart with unstable angina pectoris, unspecified vessel or lesion type ([facility]) Take 1 Capsule (200 mg) by mouth daily. 100 Capsule 3 12/13/19 24 Active Additional Information Patient not taking.Reported on 10/11/2024 isosorbide mononitrate (IMDUR) 120 mg Extended Release [...] t be different from the original. [facility] Full Review 02/25/16 tn Esteban Dueñas MD--Coppersmith Helper ([facility] ) Problem [...] artery disease of n ative artery of [place]pres[place] heart with stable angina pectoris 06/09/2016 Aspirin [...] Encounters Date Type Department Care Team Description 10/20/2024 Results Follow-Up [facility] At [address] [place] [address] Jayshree Dodd RN COMPREHENSIVE METABOLIC PANEL, LIPID PANEL, BRAIN NATRIURETIC PEPTIDE, BNP OR PROBNP 10/19/2024 10:09 AM CDT - 10/19/2024 11:59 PM CDT Hospital Encounter [facility] Diagnostic Cardiology Services [place] [address] [place] [phone] Esteban Dueñas MD Discharge Disposition: Home or Self Care 10/11/2024 11:15 AM CDT Video Visit [facility] At [address] [place] [address] Esteban Dueñas MD Coronary artery disease of [place] artery of [place] heart with stable angina pectoris (Primary Dx); Near syncope; Benign essential HTN; S/P coronary artery stents placement, 02/26/16, 11/13/16, 05/19/22, 01/05, 02/23/24; Pure hypercholesterolemia; Atherosclerosis of aorta; Aspirin allergy; Allergic reaction to dye, subsequent encounter 10/11/2024 Telephone [facility] At [address] [place] [phone] Esteban Dueñas MD heart monitor 09/27/2024 External Device Data STL ABSTRACTION Provider, Abstract 09/27/2024 External Device Data STL ABSTRACTION Provider, Abstract 09/26/2024 External Device Data STL ABSTRACTION Provider, Abstract 09/26/2024 Abstract [facility] [address] [address] [place] [address] Esteban Dueñas MD 09/25/2024 Telephone [facility] [place] [address] [place] [address] Esteban Dueñas MD Surgical Clearance 09/21/2024 Telephone [facility] At [address] [place] [phone] Esteban Dueñas MD MEDICATION CLEARANCE 08/30/2024 External Device Data STL ABSTRACTION Provider, Abstract 08/29/2024 External Device Data STL ABSTRACTION Provider, Abstract 08/03/2024 External Device Data STL ABSTRACTION Provider, Abstract from Last 3 Months Immunizations Immunization Administration [...] on file Legal Sex Female 5:01 AM HALL MONITOR Gender Identity Not on file Sexual Orientation Not on file Occupation Industry Job Start Date Job End Date Not on file Not on file Not on file Not on file Last Filed Vital Signs Vital Sign Reading Time Taken Comments Blood Pressure 123/70 10/11/2024 10:36 AM CDT Pulse 82 10/11/2024 10:36 AM CDT Temperature 36.5 C (97.7 F) 07/04/2024 10:11 AM CDT Respiratory Rate 18 02/23/2024 12:00 PM HALL MONITOR Oxygen Saturation 96% 10/11/2024 10:36 AM CDT Inhaled Oxygen Concentration - - Weight 49.4 kg (109 lb) 10/11/2024 10:36 AM CDT Height 152.4 cm (5') 10/11/2024 10:36 AM CDT Body Mass Index 21.29 10/11/2024 10:36 AM CDT Plan of Treatment Upcoming Encounters Date Type Department Care Team (Late st Contact Info) Description 01/16/2025 10:30 AM HALL MONITOR Office Visit [facility] At [address] [place] [address] Esteban Dueñas MD [address] [place] [address] [address] [place] [address] Health Maintenance Due Date Last Done Comments DTAP/TDAP/TD VACCINES (1 - Tdap) 1968 COLORECTAL SCREENING 1994 FIT/FOBT Q 1 year 1994 Flex Sig/CT Colonography Q 5 years 1994 RSV VACCINE (60+ or ) (1 - Risk 60-74 years 1-dose series) 2009 Colorectal Cancer Screening 10/17/2021 FIT-DNA Q 3 years 10/17/2021 10/17/2018 BREAST CANCER SCREENING 10/15/2022 10/16/19 22, 10/15/2021, 07/25/2020, Additional history exists INFLUENZA VACCINE (#1) 2024 OSTEOPOROSIS SCREENING 06/27/2025 06/27/2020, 2020 Medical Devices Implanted Type Area Enlisted Aircrew/Aerial Observer/Gunner Device Identifier Shelf Expiration Date Model / Serial / Lot Daniele- 016 Implanted:Qty : 1 on 02/26/2016 by Rony Deleon MD Stent Coronary [employer] 02/11/2017 / / [id number] Description:bare metal stent placed in the obtuse marginal coronary artery number 1 Adrianael- 016 Implanted:Qty : 1 on 02/26/2016 by Rony Deleon MD Stent Coronary [employer] 05/12/2018 / / [id number] Description:bare metal stent placed in the right coronary artery Adrianael- 016 Implanted:Qty : 1 on 02/26/2016 by Rony Deleon MD Stent Coronary [employer] 04/14/2017 / / [id number] Description:bare metal stent placed in the right coronary artery Promus Premier- 017 Implanted:03/2016 by Arslan Gale MD (Quantity not on file) Stent [employer] 09/28/2017 / / [id number] Description:OM1 Promus PremShopping Mail- 017 Implanted:03/2016 by Arslan Gale MD (Quantity not on file) Stent [employer] 09/28/2017 / / [id number] Description:RCA Promus PremShopping Mail- 017 Implanted:03/2016 by Arslan Gale MD (Quantity not on file) Stent [employer] 02/14/2018 / / [id number] Description:rca Stent Synergy Xd 3.0x12mm Evrlms Elut [id number] - [id number] Implanted:Qty : 1 on 05/19/2022 by Conor Grimm MD at [facility] Stent Right: Coronary [employer] 12/15/2023 [id number] / / [id number] Stent [place] Maries Temo 3.0x18mm Rx [id number] - [id number] Implanted:Qty : 1 on 12/17/2023 by Conor Grimm MD at [facility] Stent Right: Coronary [employer] [id number] 02/03/2026 [id number] [id number] / / [id number] Stent Dany Maries Temo 3.46z31nf Rx [id number] - [id number] Implanted:Qty : 1 on 02/23/2024 by Conor Grimm MD at [facility] Stent N/A: Coronary [employer] [id number] 04/26/2026 [id number] [id number] / / [id number] Procedures Procedure Name Priority Date/Time Associated Diagnosis Comments BRAIN NATRIURETIC PEPTIDE, BNP OR PROBNP Routine 10/19/2024 10:00 AM CDT Benign essential HTN LIPID PANEL Routine 10/19/2024 10:00 AM CDT Coronary artery disease of [place] artery of [place] heart with stable angina pectoris COMPREHENSIVE METABOLIC PANEL Routine 10/19/2024 10:00 AM CDT Coronary artery disease of [place] artery of [place] heart with stable angina pectoris MAMMO DIAGNOSTIC BILATERAL W OR WO CAD Routine 10/15/2021 Mass of right breast, unspecified quadrant Inverted nipple XR DEXA BONE DENSITY AXIAL 1 OR MORE SITES Routine 06/27/2020 Postmenopausal COLON CANCER SCREEN, STOOL DNA Routine 10/17/2018 12:16 PM CDT Screening for colon cancer from Last 3 Months or Most Recently Relevant to Health Maintenance Results * (ABNORMAL) BRAIN NATRIURETIC PEPTIDE, BNP OR PROBNP (10/19/2024 10:00 AM CDT) Pathologist [facility] PROBNP, N TERMINAL 209(H) <125 pg/mL [facility] Comment: FASTING:YES FASTING: YES Test Performed at: [facility] [address] [place] [address] Anum Russo MD Blood 10/19/2024 10:0 0 AM CDT 10/19/2024 10:01 AM CDT Esteban Dueñas MD CHEMISTRY ORDERABLES Final Resu lt [facility] [phone] [place] [address] [place] [address] * LIPID PANEL (10/19/2024 10:00 AM CDT) Pathologist [facility] CHOLESTEROL 164 <200 mg/dL [facility] HDL 96 > OR = 50 mg/dL [facility] TRIGLYCERIDE 78 <150 mg/dL [facility] LDL CALCULATED 52 mg/dL (calc) [facility] Comment: Reference range: <100 Desirable range <100 mg/dL for primary prevention; <70 mg/dL for patients with CHD or diabetic patients with > or = 2 CHD risk factors. LDL-C is now calculated using the Carina calculation, which is a validated novel method providing better accuracy than the Friedewald equation in the estimation of LDL-C. Dipesh VERGARA et al. JOSÉ LUIS. 2013;310(23): 7433-9493 (http://education.He[employer]ic Films/faq/RGZ151) CHOL/HDL RATIO 1.7 <5.0 (calc) [facility] NON-HDL CHOLESTEROL 68 <130 mg/dL (calc) [facility] Comment: For patients with diabetes plus 1 major ASCVD risk factor, treating to a non-HDL-C goal of <100 mg/dL (LDL-C of <70 mg/dL) is considered a therapeutic option. Test Performed at: [facility] [address] [place] [address] Anum Lancaster Blood 10/19/2024 10:0 0 AM CDT 10/19/2024 10:01 AM CDT us Esteban Dueñas MD CHEMISTRY ORDERABLES Final Resu lt [facility] [phone] [facility] [place] [address] [address] * (ABNORMAL) COMPREHENSIVE METABOLIC PANEL (10/19/2024 10:00 AM CDT) GLUCOSE 86 65 - 99 mg/dL [facility] Comment: Fasting reference interval BUN 13 7 - 25 mg/dL [facility] CREATININE 0.83 0.60 - 1.00 mg/dL [facility] GFR 74 > OR = 60 mL/min/1. 73m2 [facility] BUN/CREAT RATIO SEE NOTE: 6 22 (calc) [facility] Comment: Not Reported: BUN and Creatinine are within reference range. SODIUM 139 135 - 146 mmol/L [facility] POTASSIUM 4.3 3.5 - 5.3 mmol/L [facility] CHLORIDE 104 98 - 110 mmol/L [facility] CO2 28 20 - 32 mmol/L [facility] CALCIUM 9.3 8.6 - 10.4 mg/dL [facility] TOTAL PROTEIN 6.0(L) 6.1 - 8.1 g/dL [facility] ALBUMIN 4.1 3.6 - 5.1 g/dL [facility] GLOBULIN 1.9 1.9 - 3.7 g/dL (calc) [facility] ALBUMIN/GLOBULIN RATIO 2.2 1.0 - 2.5 (calc) [facility] BILIRUBIN TOTAL 0.8 0.2 - 1.2 mg/dL [facility] ALKALINE PHOSPHATASE 45 37 - 153 U/L [facility] AST 17 10 - 35 U/L [facility] ALT 17 6 - 29 U/L [facility] Comment: FASTING:YES FASTING: YES Test Performed at: [facility] [address] [place] [address] [facility] Blood 10/19/2024 10:0 0 AM CDT 10/19/2024 10:01 AM CDT Esteban Dueñas MD CHEMISTRY ORDERABLES Final Resu lt [facility] [phone] [place] [address] [place] [address] * MAMMO DIAGNOSTIC BILATERAL W OR WO CAD (10/15/2021) Anatomical Region Laterality Modality Breast Bilateral Mammography 10/15/2021 Esteban Casanova MD MAMMO ORDERABLES Edite d Result - Final * XR DEXA BONE DENSITY AXIAL 1 OR MORE SITES (06/27/2020) T-SCORE FEMUR [facility] T-SCORE FEMUR (LEFT) [facility] T-SCORE FEMUR (RIGHT) [facility] T-SCORE FEMUR NECK [facility] T-SCORE FEMORAL NECK (LEFT) [facility] T-SCORE FEMORAL NECK (RIGHT) [facility] T-SCORE HEEL [facility] T-SCORE HEEL (LEFT) [facility] T-SCORE HEEL (RIGHT) [facility] T-SCORE HIP [facility] T-SCORE HIP (LEFT) [facility] T-SCORE HIP (RIGHT) [facility] T-SCORE WRIST [facility] T-SCORE WRIST (LEFT) [facility] T-SCORE WRIST (RIGHT[facility] T-SCORE SPINE [facility] Anatomical Region Laterality Modality Other us Esteban Casanova MD DIAGNOSTIC IMAGING ORD ERABLES Final Result * COLON CANCER SCREEN, STOOL DNA (10/17/2018 12:16 PM CDT) COLOGUARD RESULT Negative Not Applicable [facility] Comment: A negative result indicates [...] Ordaz et al, N Engl J Med 2014;370(14):5896-7811) COLOGUARD RE-SCREENING RECOMMENDATION: Periodic routine colorectal cancer screening is an important part of preventive healthcare for asymptomatic persons at average risk for colorectal cancer. Following a negative Cologuard result, the [place] Cancer Society and U.S. Multi-Society Task Force screening guidelines recommend a Cologuard re-screening interval of 3 years. References: [place] Cancer Society (ACS). Colorectal cancer prevention and early detection. [place], [place]: [place] Cancer Society; [updated 2015Jul 06]. https://www.cancer.org/cancer/hezyz-aphhrr-uxlioi/xozitynzz-nlswhklis-zntisks/ac s-rec ommendations.html. Accessed November 12, 2017; Brayden DK, Amanda CR, Jacquie HenryK, Colorectal Cancer Screening: Recommendations for Physicians and Patients from the U.S. Multi-Society Task Force on Colorectal Cancer Screening, Am J Gastroenterology 2017; 112:2963-3174. Test Type: Composite algorithmic analysis of stool [...] can be accessed at the following location: www.[employer]/results. Additional description of the Cologuard test process, warnings and precautions can be found at www.cologuardtest.com. Rx Only. Stool STOOL SPECIMEN / Unknown 10/17/2018 12:16 PM CDT 10/18/2018 7:16 PM CDT Esteban Casanova MD BODY FLUIDS AND STOOLS Final Result [employer] CLIA # [id number] [address] , [address] [place] [address] from Last 3 Months or Most Recently Relevant to Health Maintenance Insurance RX AETNA Medicare Part D AETNA PPO [facility] Advance Directives For more information, please contact: [phone] Documents on File Type Date Recorded Patient Crew Chief Expl anation Advance Directive POA 08/31/2023 3:26 PM A dvance Directive POA Advance Directive Living Will 05/19/2022 5:44 AM [...] 8:37 AM 11/13/2016 12:58 PM Care Teams Farm Or Ranch Animal Caretaker Relationship Specialty Start Date End Date Vitaly Manzanares MD [address] [place] [address] PCP - General Family Practice 05/19/22
--- OUTSIDE RECORDS SUMMARY | 2024-10-26 14:29 | XMS_ITS | Encounter Summary ---
Author Organization [facility] Address [address] [place] [address] Care Team Providers Care Insurance Agents Supervisor Name Role Phone Vitaly Manzanares MD Primary Care Provider [phone] Encounter Details Date Type Department Care Team (Late st Contact Info) Description 05/27/2001 Outpatient Historical [facility] [address] [place] [address] Gadiel Christensen MD [address] [place] [phone] Social History Tobacco Use Types Packs/Day Years Used Date Smoking Tobacco: Never Assessed Comments Unknown Sex and Gender Information Value Date Recorded Sex Assigned at Not on file Legal Sex Female 5:01 AM BARBER SHOP MANAGER Gender Identity Not on file Sexual Orientation Not on file documented as of this encounter Plan of Treatment Upcoming Encounters Date Type Department Care Team (Late Contact Info) Description 01/16/2025 10:30 AM BARBER SHOP MANAGER Office Visit [facility] At [address] [place] [address] Esteban Dueñas MD [address] [place] [address] [place] [address] documented as of this encounter Visit Diagnoses Not on filedocumented in this encounter Care Teams Insurance Agents Supervisor Relationship Specialty Start Date End Date Vitaly Manzanares MD [address] [place] [address] PCP - General Family Practice 05/19/22 documented as of this encounter
--- OUTSIDE RECORDS SUMMARY | 2024-10-26 14:29 | XMS_ITS | Encounter Summary ---
Author Organization [facility] Address [address] [place] [address] Care Team Providers Care Contestant Coordinator Name Role Phone Vitaly Manzanares MD Primary Care Provider [phone] Encounter Details Date Type Department Care Team (Late st Contact Info) Description 12/28/2003 Outpatient Historical [facility] Gadiel Bardales MD [address] [place] [phone] SCREENING MAMM-MAILG NEOPL-OTHER (Primary Dx) Social History Tobacco Use Types Packs/Day Years Used Date Smoking Tobacco: Never Assessed Comments Unknown Sex and Gender Information Value Date Recorded Sex Assigned at Not on file Legal Sex Female 5:01 AM CIVIL ENGINEERING DRAFTSPERSON Gender Identity Not on file Sexual Orientation Not on file documented as of this encounter Plan of Treatment Upcoming Encounters Date Type Department Care Team (Late st Contact Info) Description 01/16/2025 10:30 AM CIVIL ENGINEERING DRAFTSPERSON Office Visit [facility] Heart and Vascular At [address] [place] [address] Esteban Dueñas MD [address] [place] [address] [address] [place] [address] documented as of this encounter Visit Diagnoses Diagnosis Other screening mammogram- Primary documented in this encounter Care Teams Contestant Coordinator Relationship Specialty Start Date End Date Vitaly Manzanares MD [address] [place] [address] PCP - General Family Practice 05/19/22 documented as of this encounter
--- OUTSIDE RECORDS SUMMARY | 2024-10-26 14:29 | XMS_ITS | Encounter Summary ---
Author Organization [facility] Address [address] [place] [address] Care Team Providers Care Rn Embedded Name Role Phone Vitaly Manzanares MD Primary Care Provider [phone] Encounter Details Date Type Department Care Team (Late st Contact Info) Description 12/21/2004 Outpatient Historical [facility] Gadiel Christensen MD [address] [place] [phone] Social History Tobacco Use Types Packs/Day Years Used Date Smoking Tobacco: Never Assessed Comments Unknown Sex and Gender Information Value Date Recorded Sex Assigned at Not on file Legal Sex Female 5:01 AM TRANSITIONAL CARE NURSE Gender Identity Not on file Sexual Orientation Not on file documented as of this encounter Plan of Treatment Upcoming Encounters Date Type Department Care Team (Late st Contact Info) Description 01/16/2025 10:30 AM TRANSITIONAL CARE NURSE Office Visit [facility] Heart [facility] Vascular At [facility] [address] [facility] [address] [place] [address] Esteban Dueñas MD [address] [facility] [address] [place] [address] documented as of this encounter Visit Diagnoses Not on filedocumented in this encounter Care Teams Rn Embedded Relationship Specialty Start Date End Date Vitaly Manzanares MD [address] [place] [address] PCP - General Family Practice 05/19/22 documented as of this encounter
--- OUTSIDE RECORDS SUMMARY | 2024-10-26 14:29 | XMS_ITS | Encounter Summary ---
Author Organization [facility] Address [address] [place] [address] Care Team Providers Care Guide Travel Name Role Phone Vitaly Manzanares MD Primary Care Provider [phone] Encounter Details Date Type Department Care Team (Late st Contact Info) Description 07/18/2001 Outpatient Historical [facility] [id number] [place] [address] Gadiel Christensen MD [address] [place] [phone] Social History Tobacco Use Types Packs/Day Years Used Date Smoking Tobacco: Never Assessed Comments Unknown Sex and Gender Information Value Date Recorded Sex Assigned at Not on file Legal Sex Female 5:01 AM RESEARCH PROGRAM COORDINATOR Gender Identity Not on file Sexual Orientation Not on file documented as of this encounter Plan of Treatment Upcoming Encounters Date Type Department Care Team (Late Contact Info) Description 01/16/2025 10:30 AM RESEARCH PROGRAM COORDINATOR Office Visit [facility] At [address] [place] [address] Esteban Dueñas MD [address] [place] [address] [place] [address] documented as of this encounter Visit Diagnoses Not on filedocumented in this encounter Care Teams Guide Travel Relationship Specialty Start Date End Date Vitaly Manzanares MD [address] [place] [address] PCP - General Family Practice 05/19/22 documented as of this encounter
--- OUTSIDE RECORDS SUMMARY | 2024-10-26 14:29 | XMS_ITS | Encounter Summary ---
Author Organization [facility] Address [address] [place] [address] Care Team Providers Care Desktop Analyst Name Role Phone Vitaly Manzanares MD Primary Care Provider [phone] Encounter Details Date Type Department Care Team (Late st Contact Info) Description 07/09/2004 Outpatient Historical [facility] Gadiel Christensen MD [address] [place] [phone] Social History Tobacco Use Types Packs/Day Years Used Date Smoking Tobacco: Never Assessed Comments Unknown Sex and Gender Information Value Date Recorded Sex Assigned at Not on file Legal Sex Female 5:01 AM MANAGER MEDICARE MARKETING Gender Identity Not on file Sexual Orientation Not on file documented as of this encounter Plan of Treatment Upcoming Encounters Date Type Department Care Team (Late st Contact Info) Description 01/16/2025 10:30 AM MANAGER MEDICARE MARKETING Office Visit [facility] Heart and Vascular At [facility] [address] [facility] [address] [place] [address] Esteban Dueñas MD [address] [facility] [address] [place] [address] documented as of this encounter Visit Diagnoses Not on filedocumented in this encounter Care Teams Desktop Analyst Relationship Specialty Start Date End Date Vitaly Manzanares MD [address] [place] [address] PCP - General Family Practice 05/19/22 documented as of this encounter
--- OUTSIDE RECORDS SUMMARY | 2024-10-26 14:29 | XMS_ITS | Encounter Summary ---
Author Organization [facility] Address [address] [place] [address] Care Team Providers Care Accounts Executive Name Role Phone Vitaly Manzanares MD Primary Care Provider [phone] Encounter Details Date Type Department Care Team (Late st Contact Info) Description 02/13/2005 Outpatient Historical [facility] Internal Medicine [address] [place] [address] Gadiel Christensen MD [address] [place] [phone] Social History Tobacco Use Types Packs/Day Years Used Date Smoking Tobacco: Never Assessed Comments Unknown Sex and Gender Information Value Date Recorded Sex Assigned at Not on file Legal Sex Female 5:01 AM FINAL TOUCH UP PAINTER Gender Identity Not on file Sexual Orientation Not on file documented as of this encounter Plan of Treatment Upcoming Encounters Date Type Department Care Team (Late Contact Info) Description 01/16/2025 10:30 AM FINAL TOUCH UP PAINTER Office Visit [facility] Heart and Vascular At [address] [place] [address] Esteban Dueñas MD [address] [place] [address] [address] [place] [address] documented as of this encounter Visit Diagnoses Not on filedocumented in this encounter Care Teams Accounts Executive Relationship Specialty Start Date End Date Vitaly Manzanares MD [address] [place] [address] PCP - General Family Practice 05/19/22 documented as of this encounter
--- OUTSIDE RECORDS SUMMARY | 2024-10-26 14:29 | XMS_ITS | Encounter Summary ---
Author Organization [facility] Address [address] [place] [address] Care Team Providers Care Poultry Grader Name Role Phone Vitaly Manzanares MD Primary Care Provider [phone] Encounter Details Date Type Department Care Team (Late st Contact Info) Description 06/28/2006 Outpatient Historical [facility] Internal Medicine [address] [place] [address] Gadiel Christensen MD [address] [place] [phone] Social History Tobacco Use Types Packs/Day Years Used Date Smoking Tobacco: Never Assessed Comments Unknown Sex and Gender Information Value Date Recorded Sex Assigned at Not on file Legal Sex Female 5:01 AM ANALYSIS LEAD Gender Identity Not on file Sexual Orientation Not on file documented as of this encounter Plan of Treatment Upcoming Encounters Date Type Department Care Team (Late Contact Info) Description 01/16/2025 10:30 AM ANALYSIS LEAD Office Visit [facility] Heart and Vascular At [address] [place] [address] Esteban Dueñas MD [address] [place] [address] [address] [place] [address] documented as of this encounter Visit Diagnoses Not on filedocumented in this encounter Care Teams Poultry Grader Relationship Specialty Start Date End Date Vitaly Manzanares MD [address] [place] [address] PCP - General Family Practice 05/19/22 documented as of this encounter
--- OUTSIDE RECORDS SUMMARY | 2024-10-26 14:29 | XMS_ITS | Encounter Summary ---
Author Organization [facility] Address [address] [place] [address] Care Team Providers Care Teletype Technician Name Role Phone Vitaly Manzanares MD Primary Care Provider [phone] Encounter Details Date Type Department Care Team (Late st Contact Info) Description 11/19/2004 Outpatient Historical [facility] Gadiel Christensen MD [address] [place] [phone] CERVICALGIA (Primary Dx) Social History Tobacco Use Types Packs/Day Years Used Date Smoking Tobacco: Never Assessed Comments Unknown Sex and Gender Information Value Date Recorded Sex Assigned at Not on file Legal Sex Female 5:01 AM GUIDE Gender Identity Not on file Sexual Orientation Not on file documented as of this encounter Plan of Treatment Upcoming Encounters Date Type Department Care Team (Late st Contact Info) Description 01/16/2025 10:30 AM GUIDE Office Visit [facility] Heart and Vascular At [address] [place] [address] Esteban Dueñas MD [address] [place] [address] [address] [place] [address] documented as of this encounter Visit Diagnoses Diagnosis Cervicalgia- Primary documented in this encounter Care Teams Teletype Technician Relationship Specialty Start Date End Date Vitaly Manzanares MD [address] [place] [address] PCP - General Family Practice 05/19/22 documented as of this encounter
--- OUTSIDE RECORDS SUMMARY | 2024-10-26 14:29 | XMS_ITS | Encounter Summary ---
Author Organization [facility] Address [address] [place] [address] Care Team Providers Care Migration Agent Name Role Phone Vitaly Manzanares MD Primary Care Provider [phone] Encounter Details Date Type Department Care Team (Late st Contact Info) Description 08/19/2005 Outpatient Historical [facility] Internal Medicine [id number] [place] [address] aGdiel Christensen MD [address] [place] [phone] Social History Tobacco Use Types Packs/Day Years Used Date Smoking Tobacco: Never Assessed Comments Unknown Sex and Gender Information Value Date Recorded Sex Assigned at Not on file Legal Sex Female 5:01 AM EVENT MARKETING INTERN Gender Identity Not on file Sexual Orientation Not on file documented as of this encounter Plan of Treatment Upcoming Encounters Date Type Department Care Team (Late Contact Info) Description 01/16/2025 10:30 AM EVENT MARKETING INTERN Office Visit [facility] Heart and Vascular At [address] [place] [address] Esteban Dueñas MD [address] [place] [address] [address] [place] [address] documented as of this encounter Visit Diagnoses Not on filedocumented in this encounter Care Teams Migration Agent Relationship Specialty Start Date End Date Vitaly Manzanares MD [address] [place] [address] PCP - General Family Practice 05/19/22 documented as of this encounter
--- OUTSIDE RECORDS SUMMARY | 2024-10-26 14:29 | XMS_ITS | Encounter Summary ---
Author Organization [facility] Address [address] [place] [address] Care Team Providers Care Heart Nurse Name Role Phone Vitaly Manzanares MD Primary Care Provider Encounter Details Date Type Department Care Team (Late st Contact Info) Description 03/09/2006 Outpatient Historical [facility] Gadiel Christensen MD [address] [place] [phone] Essential Hypertension, Benign (Primary Dx) Social History Tobacco Use Types Packs/Day Years Used Date Smoking Tobacco: Never Assessed Comments Unknown Sex and Gender Information Value Date Recorded Sex Assigned at Not on file Legal Sex Female 5:01 AM IT SALES EXECUTIVE Gender Identity Not on file Sexual Orientation Not on file documented as of this encounter Plan of Treatment Upcoming Encounters Date Type Department Care Team (Late st Contact Info) Description 01/16/2025 10:30 AM IT SALES EXECUTIVE Office Visit [facility] Heart and Vascular At [address] [place] [address] Esteban Dueñas MD [address] [place] [address] [address] [place] [address] documented as of this encounter Procedures Procedure Name Priority Date/Time Associated Diagnosis Comments TSH REFLEXIVE Routine 03/09/2006 9:00 AM IT SALES EXECUTIVE CBC WITH DIFFERENTIAL Routine 03/09/2006 9:00 AM IT SALES EXECUTIVE CBC WITH DIFFERENTIAL Routine 03/09/2006 9:00 AM IT SALES EXECUTIVE CANCER ANTIGEN 125 Routine 03/09/2006 9: 00 AM IT SALES EXECUTIVE MAGNESIUM LEVEL Routine 03/09/2006 9:00 AM IT SALES EXECUTIVE LIPID PANEL Routine 03/09/2006 9:00 AM IT SALES EXECUTIVE COMPREHENSIVE METABOLIC PANEL Routine 03/09/2006 9:00 AM IT SALES EXECUTIVE documented in this encounter Results * CBC WITH DIFFERENTIAL (03/09/2006 9:00 AM IT SALES EXECUTIVE) NEUTROPHILS 54 45 - 70 % INTERFAC [...] 0.20 K/uL INTERFACE SYSTEM 03/09/2006 9:00 AM IT SALES EXECUTIVE us Gadiel Christensen MD HEMATOLOGY ORDERABLES Final Re sult INTERFACE SYSTEM Refer to clinic/hospital department * (ABNORMAL) CBC WITH DIFFERENTIAL (03/09/2006 9:00 AM IT SALES EXECUTIVE) WBC 5.4 4.0 - 9.8 K/uL INTERFACE [...] 12.4 fL INTERFACE SYSTEM 03/09/2006 9:00 AM IT SALES EXECUTIVE Gadiel Christensen MD HEMATOLOGY ORDERABLES Final Re sult Performing Organization Address [facility] Phone Number INTERFACE SYSTEM Refer to clinic/hospital department * TSH REFLEXIVE (03/09/2006 9:00 AM IT SALES EXECUTIVE) TSH 1.82 0.27 - 4.20 uU/mL INTERFACE SYSTEM 03/09/2006 9:00 AM IT SALES EXECUTIVE Gadiel Christensen MD CHEMISTRY ORDERABLES Final Res ult Performing Organization Address [facility] Phone Number INTERFACE SYSTEM Refer to clinic/hospital department * MAGNESIUM LEVEL (03/09/2006 9:00 AM IT SALES EXECUTIVE) MAGNESIUM 1.8 1.5 - 2.5 mg/dL INTERFACE SYSTEM 03/09/2006 9:00 AM IT SALES EXECUTIVE Gadiel Christensen MD CHEMISTRY ORDERABLES Final Res ult Performing Organization Address [facility] Phone Number INTERFACE SYSTEM Refer to clinic/hospital department * CANCER ANTIGEN 125 (03/09/2006 9:00 AM IT SALES EXECUTIVE) CA 125 8 <=34 U/mL INTERFACE SYSTEM [...] a cancer screening test. 03/09/2006 9:00 AM IT SALES EXECUTIVE Gadiel Christensen MD CHEMISTRY ORDERABLES Final Res ult Performing Organization Address [facility] Co de Phone Number INTERFACE SYSTEM Refer to clinic/hospital department * (ABNORMAL) LIPID PANEL (03/09/2006 9:00 AM IT SALES EXECUTIVE) CHOLESTEROL 223(H) 100 - 199 mg/dL INTERFACE [...] the [facility] Intranet at: [email or web address] Select: Lab Policies and Procedures Select: Reference Ranges - Lipids 03/09/2006 9:00 AM IT SALES EXECUTIVE Gadiel Christensen MD CHEMISTRY ORDERABLES Final Res ult Performing Organization Address [facility] de Phone Number INTERFACE SYSTEM Refer to clinic/hospital department * COMPREHENSIVE METABOLIC PANEL (03/09/2006 9:00 AM IT SALES EXECUTIVE) GLUCOSE 93 65 - 99 mg/dL INTERFACE [...] available on the [facility] Breathing Buildingset at: [email or web address] Select: Lab Policies and Procedures Select: Reference Ranges - GFR 03/09/2006 9:00 AM IT SALES EXECUTIVE us Gadiel Christensen MD CHEMISTRY ORDERABLES Final Res ult INTERFACE SYSTEM Refer to clinic/hospital department documented in this encounter Visit Diagnoses Diagnosis Essential hypertension, benign- Primary documented in this encounter Care Teams Heart Nurse Relationship Specialty Start Date End Date Vitaly Manzanares MD [address] [place] [address] PCP - General Family Practice 05/19/22 documented as of this encounter
--- OUTSIDE RECORDS SUMMARY | 2024-10-26 14:29 | XMS_ITS | Encounter Summary ---
Author Organization [facility] Address [address] [place] [address] Care Team Providers Care Supervisor Chassis Assembly Name Role Phone Vitaly Manzanares MD Primary Care Provider [phone] Encounter Details Date Type Department Care Team (Late st Contact Info) Description 05/19/2005 Outpatient Historical [facility] Internal Medicine [address] [place] [address] Gadiel Christensen MD [address] [place] [phone] Social History Tobacco Use Types Packs/Day Years Used Date Smoking Tobacco: Never Assessed Comments Unknown Sex and Gender Information Value Date Recorded Sex Assigned at Not on file Legal Sex Female 5:01 AM COOKING CHEF Gender Identity Not on file Sexual Orientation Not on file documented as of this encounter Plan of Treatment Upcoming Encounters Date Type Department Care Team (Late Contact Info) Description 01/16/2025 10:30 AM COOKING CHEF Office Visit [facility] Heart and Vascular At [address] [place] [address] Esteban Dueñas MD [address] [place] [address] [address] [place] [address] documented as of this encounter Visit Diagnoses Not on filedocumented in this encounter Care Teams Supervisor Chassis Assembly Relationship Specialty Start Date End Date Vitaly Manzanares MD [address] [place] [address] PCP - General Family Practice 05/19/22 documented as of this encounter
--- OUTSIDE RECORDS SUMMARY | 2024-10-26 14:29 | XMS_ITS | Encounter Summary ---
Author Organization [facility] Address [address] [place] [address] Care Team Providers Care Foot Doctor Name Role Phone Vitaly Manzanares MD Primary Care Provider [phone] Encounter Details Date Type Department Care Team (Late st Contact Info) Description 05/05/2004 Outpatient Historical [facility] Internal Medicine [address] [place] [address] Gadiel Christensen MD [address] [place] [phone] Social History Tobacco Use Types Packs/Day Years Used Date Smoking Tobacco: Never Assessed Comments Unknown Sex and Gender Information Value Date Recorded Sex Assigned at Not on file Legal Sex Female 5:01 AM LEADLIGHTER Gender Identity Not on file Sexual Orientation Not on file documented as of this encounter Plan of Treatment Upcoming Encounters Date Type Department Care Team (Late Contact Info) Description 01/16/2025 10:30 AM LEADLIGHTER Office Visit [facility] Heart and Vascular At [address] [place] [address] Esteban Dueñas MD [address] [place] [address] [address] [place] [address] documented as of this encounter Visit Diagnoses Not on filedocumented in this encounter Care Teams Foot Doctor Relationship Specialty Start Date End Date Vitaly Manzanares MD [address] [place] [address] PCP - General Family Practice 05/19/22 documented as of this encounter
--- OUTSIDE RECORDS SUMMARY | 2024-10-26 14:29 | XMS_ITS | Encounter Summary ---
Author Organization [facility] Address [address] [place] [address] Care Team Providers Care Check Clerk Name Role Phone Vitaly Manzanares MD Primary Care Provider [phone] Encounter Details Date Type Department Care Team (Late st Contact Info) Description 06/09/2002 Outpatient Historical [facility] Internal Medicine [address] [place] [address] Gadiel Christensen MD [address] [place] [phone] Social History Tobacco Use Types Packs/Day Years Used Date Smoking Tobacco: Never Assessed Comments Unknown Sex and Gender Information Value Date Recorded Sex Assigned at Not on file Legal Sex Female 5:01 AM CHIEF SECURITY OFFICER Gender Identity Not on file Sexual Orientation Not on file documented as of this encounter Plan of Treatment Upcoming Encounters Date Type Department Care Team (Late Contact Info) Description 01/16/2025 10:30 AM CHIEF SECURITY OFFICER Office Visit [facility] Heart and Vascular At [address] [place] [address] Esteban Dueñas MD [address] [place] [address] [address] [place] [address] documented as of this encounter Visit Diagnoses Not on filedocumented in this encounter Care Teams Check Clerk Relationship Specialty Start Date End Date Vitaly Manzanares MD [address] [place] [address] PCP - General Family Practice 05/19/22 documented as of this encounter
--- OUTSIDE RECORDS SUMMARY | 2024-10-26 14:29 | XMS_ITS | Encounter Summary ---
Author Organization [facility] Address [address] [place] [address] Care Team Providers Care Clinical Practice Consultant Name Role Phone Vitaly Manzanares MD Primary Care Provider [phone] Encounter Details Date Type Department Care Team (Late st Contact Info) Description 04/04/2004 Outpatient Historical [facility] Gadiel Christensen MD [address] [place] [phone] DISC DIS NEC/NOS-UNSPEC (Primary Dx) Social History Tobacco Use Types Packs/Day Years Used Date Smoking Tobacco: Never Assessed Comments Unknown Sex and Gender Information Value Date Recorded Sex Assigned at Not on file Legal Sex Female 5:01 AM PALLETISER OPERATOR Gender Identity Not on file Sexual Orientation Not on file documented as of this encounter Plan of Treatment Upcoming Encounters Date Type Department Care Team (Late st Contact Info) Description 01/16/2025 10:30 AM PALLETISER OPERATOR Office Visit [facility] Heart and Vascular At [address] [place] [address] Esteban Dueñas MD [address] [place] [address] [address] [place] [address] documented as of this encounter Visit Diagnoses Diagnosis Other and unspecified disc disorder of unspecified region- Primary documented in this encounter Care Teams Clinical Practice Consultant Relationship Specialty Start Date End Date Vitaly Manzanares MD [address] [place] [address] PCP - General Family Practice 05/19/22 documented as of this encounter
--- OUTSIDE RECORDS SUMMARY | 2024-10-26 14:29 | XMS_ITS | Encounter Summary ---
Author Organization [facility] Address [address] [place] [address] Care Team Providers Care Director Of Occupational Therapy Name Role Phone Vitaly Manzanares MD Primary Care Provider [phone] Encounter Details Date Type Department Care Team (Late st Contact Info) Description 05/05/2002 Outpatient Historical [facility] Gadiel Andrade MD [address] [place] [phone] SCREENING MAMM-MAILG NEOPL-OTHER (Primary Dx) Social History Tobacco Use Types Packs/Day Years Used Date Smoking Tobacco: Never Assessed Comments Unknown Sex and Gender Information Value Date Recorded Sex Assigned at Not on file Legal Sex Female 5:01 AM PATIENT ADMITTING CLERK Gender Identity Not on file Sexual Orientation Not on file documented as of this encounter Plan of Treatment Upcoming Encounters Date Type Department Care Team (Late st Contact Info) Description 01/16/2025 10:30 AM PATIENT ADMITTING CLERK Office Visit [facility] Heart and Vascular At [address] [facility] [address] [place] [address] Esteban Dueñas MD [address] [place] [address] [address] [place] [address] documented as of this encounter Visit Diagnoses Diagnosis Other screening mammogram- Primary documented in this encounter Care Teams Director Of Occupational Therapy Relationship Specialty Start Date End Date Vitaly Manzanares MD [address] [place] [address] PCP - General Family Practice 05/19/22 documented as of this encounter
--- OUTSIDE RECORDS SUMMARY | 2024-10-26 14:29 | XMS_ITS | Encounter Summary ---
Author Organization [facility] Address [address] [place] [address] Care Team Providers Care Ore Dryer Name Role Phone Vitaly Manzanares MD Primary Care Provider [phone] Encounter Details Date Type Department Care Team (Late st Contact Info) Description 05/10/2002 Outpatient Historical [facility] Internal Medicine [address] [place] [address] Gadiel Christensen MD [address] [place] [phone] Social History Tobacco Use Types Packs/Day Years Used Date Smoking Tobacco: Never Assessed Comments Unknown Sex and Gender Information Value Date Recorded Sex Assigned at Not on file Legal Sex Female 5:01 AM TECHNOLOGY STRATEGIST Gender Identity Not on file Sexual Orientation Not on file documented as of this encounter Plan of Treatment Upcoming Encounters Date Type Department Care Team (Late Contact Info) Description 01/16/2025 10:30 AM TECHNOLOGY STRATEGIST Office Visit [facility] Heart and Vascular At [address] [place] [address] Esteban Dueñas MD [address] [place] [address] [address] [place] [address] documented as of this encounter Visit Diagnoses Not on filedocumented in this encounter Care Teams Ore Dryer Relationship Specialty Start Date End Date Vitaly Manzanares MD [address] [place] [address] PCP - General Family Practice 05/19/22 documented as of this encounter
--- OUTSIDE RECORDS SUMMARY | 2024-10-26 14:29 | XMS_ITS | Encounter Summary ---
Author Organization [facility] Address [address] [place] [address] Care Team Providers Care Storage Wharfage Clerk Name Role Phone Vitaly Manzanares MD Primary Care Provider [phone] Encounter Details Date Type Department Care Team (Late st Contact Info) Description 06/22/2005 Outpatient Historical [facility] Internal Medicine [address] [place] [address] Gadiel Christensen MD [address] [place] [phone] Social History Tobacco Use Types Packs/Day Years Used Date Smoking Tobacco: Never Assessed Comments Unknown Sex and Gender Information Value Date Recorded Sex Assigned at Not on file Legal Sex Female 5:01 AM ADVANCED REGISTERED NURSE Gender Identity Not on file Sexual Orientation Not on file documented as of this encounter Plan of Treatment Upcoming Encounters Date Type Department Care Team (Late Contact Info) Description 01/16/2025 10:30 AM ADVANCED REGISTERED NURSE Office Visit [facility] Heart and Vascular At [address] [place] [address] Esteban Dueñas MD [address] [place] [address] [address] [place] [address] documented as of this encounter Visit Diagnoses Not on filedocumented in this encounter Care Teams Storage Wharfage Clerk Relationship Specialty Start Date End Date Vitaly Manzanares MD [address] [place] [address] PCP - General Family Practice 05/19/22 documented as of this encounter
--- OUTSIDE RECORDS SUMMARY | 2024-10-26 14:29 | XMS_ITS | Encounter Summary ---
Author Organization [facility] Address [address] [place] [address] Care Team Providers Care Rn Endocrinology Name Role Phone Vitaly Manzanares MD Primary Care Provider [phone] Encounter Details Date Type Department Care Team (Latest Contact Info) Description 10/20/2024 Results Follow-Up [facility] Heart and Vascular At [address] [place] [address] Jayshree Dodd RN COMPREHENSIVE METABOLIC PANEL, LIPID PANEL, BRAIN NATRIURETIC PEPTIDE, BNP OR PROBNP Social History Tobacco Use Types Packs/Day Years Used Date Smoking Tobacco: Never Smokeless Tobacco: Never Alcohol Use Standard Drinks/Week Comments Yes 1.7 (1 standard drink = 0.6 oz p ure alcohol) Comments No Sex and Gender Information Value Date Recorded Sex Assigned at Not on file Legal Sex Female 5:01 AM CRANBERRY SORTER Gender Identity Not on file Sexual Orientation Not on file Occupation Industry Job Start Date Job End Date Not on file Not on file Not on file Not on file documented as of this encounter Plan of Treatment Upcoming Encounters Date Type Department Care Team (Late st Contact Info) Description 01/16/2025 10:30 AM CRANBERRY SORTER Office Visit [facility] Heart and Vascular At [address] [place] [address] Esteban Dueñas MD [address] [place] [address] [address] [place] [address] documented as of this encounter Visit Diagnoses Not on filedocumented in this encounter Care Teams Rn Endocrinology Relationship Specialty Start Date End Date Vitaly Manzanares MD [address] [place] [address] PCP - General Family Practice 05/19/22 documented as of this encounter
--- OUTSIDE RECORDS SUMMARY | 2024-10-26 14:29 | XMS_ITS | Encounter Summary ---
Author Organization [facility] Address [address] [place] [address] Care Team Providers Care Department Chair Name Role Phone Vitaly Manzanares MD Primary Care Provider [phone] Encounter Details Date Type Department Care Team (Late st Contact Info) Description 01/28/2004 Outpatient Historical [facility] Internal Medicine [address] [place] [address] Gadiel Christensen MD [address] [place] [phone] Social History Tobacco Use Types Packs/Day Years Used Date Smoking Tobacco: Never Assessed Comments Unknown Sex and Gender Information Value Date Recorded Sex Assigned at Not on file Legal Sex Female 5:01 AM ANALYTICAL RESEARCH PROGRAM MANAGER Gender Identity Not on file Sexual Orientation Not on file documented as of this encounter Plan of Treatment Upcoming Encounters Date Type Department Care Team (Late Contact Info) Description 01/16/2025 10:30 AM ANALYTICAL RESEARCH PROGRAM MANAGER Office Visit [facility] At [address] [place] [address] Esteban Dueñas MD [address] [place] [address] [address] [place] [address] documented as of this encounter Visit Diagnoses Not on filedocumented in this encounter Care Teams Department Chair Relationship Specialty Start Date End Date Vitaly Manzanares MD [address] [place] [address] PCP - General Family Practice 05/19/22 documented as of this encounter
--- OUTSIDE RECORDS SUMMARY | 2024-10-26 14:29 | XMS_ITS | Encounter Summary ---
Author Organization [facility] Address [address] [place] [address] Care Team Providers Care Aircraft Electrical Systems Specialist Name Role Phone Vitaly Manzanares MD Primary Care Provider [phone] Encounter Details Date Type Department Care Team (Late st Contact Info) Description 10/30/2003 Outpatient Historical [facility] Internal Medicine [id number] [place] [address] Gadiel Christensen MD [address] [place] [phone] Social History Tobacco Use Types Packs/Day Years Used Date Smoking Tobacco: Never Assessed Comments Unknown Sex and Gender Information Value Date Recorded Sex Assigned at Not on file Legal Sex Female 5:01 AM RIPRAP PLACING SUPERVISOR Gender Identity Not on file Sexual Orientation Not on file documented as of this encounter Plan of Treatment Upcoming Encounters Date Type Department Care Team (Late Contact Info) Description 01/16/2025 10:30 AM RIPRAP PLACING SUPERVISOR Office Visit [facility] Heart and Vascular At [address] [place] [address] Esteban Dueñas MD [address] [place] [address] [place] [address] documented as of this encounter Visit Diagnoses Not on filedocumented in this encounter Care Teams Aircraft Electrical Systems Specialist Relationship Specialty Start Date End Date Vitaly Manzanares MD [address] [place] [address] PCP - General Family Practice 05/19/22 documented as of this encounter
--- OUTSIDE RECORDS SUMMARY | 2024-10-26 14:29 | XMS_ITS | Encounter Summary ---
Author Organization [facility] Address [address] [place] [address] Care Team Providers Care Director Nursing Service Name Role Phone Vitaly Manzanares MD Primary Care Provider [phone] Encounter Details Date Type Department Care Team (Late st Contact Info) Description 04/19/2001 Outpatient Historical [facility] Internal Medicine [address] [place] [address] Gadiel Christensen MD [address] [place] [phone] Social History Tobacco Use Types Packs/Day Years Used Date Smoking Tobacco: Never Assessed Comments Unknown Sex and Gender Information Value Date Recorded Sex Assigned at Not on file Legal Sex Female 5:01 AM APPLICATION ASSISTANT Gender Identity Not on file Sexual Orientation Not on file documented as of this encounter Plan of Treatment Upcoming Encounters Date Type Department Care Team (Late Contact Info) Description 01/16/2025 10:30 AM APPLICATION ASSISTANT Office Visit [facility] Heart and Vascular At [address] [place] [address] [place] [address] Esteban Dueñas MD [address] [place] [address] [place] [address] documented as of this encounter Visit Diagnoses Not on filedocumented in this encounter Care Teams Director Nursing Service Relationship Specialty Start Date End Date Vitaly Manzanares MD [address] [place] [address] PCP - General Family Practice 05/19/22 documented as of this encounter
--- OUTSIDE RECORDS SUMMARY | 2024-10-26 14:29 | XMS_ITS | Encounter Summary ---
Author Organization [facility] Address [address] [place] [address] Care Team Providers Care Brush Clearing Laborer Name Role Phone Vitaly Manzanares MD Primary Care Provider [phone] Encounter Details Date Type Department Care Team (Late st Contact Info) Description 11/07/2001 Outpatient Historical [facility] Internal Medicine [address] [place] [address] Gadiel Christensen MD [address] [place] [phone] Social History Tobacco Use Types Packs/Day Years Used Date Smoking Tobacco: Never Assessed Comments Unknown Sex and Gender Information Value Date Recorded Sex Assigned at Not on file Legal Sex Female 5:01 AM CASH APPLICATIONS ANALYST Gender Identity Not on file Sexual Orientation Not on file documented as of this encounter Plan of Treatment Upcoming Encounters Date Type Department Care Team (Late Contact Info) Description 01/16/2025 10:30 AM CASH APPLICATIONS ANALYST Office Visit [facility] Heart and Vascular At [address] [place] [address] Esteban Dueñas MD [address] [place] [address] [address] [place] [address] documented as of this encounter Visit Diagnoses Not on filedocumented in this encounter Care Teams Brush Clearing Laborer Relationship Specialty Start Date End Date Vitaly Manzanares MD [address] [place] [address] PCP - General Family Practice 05/19/22 documented as of this encounter
--- OUTSIDE RECORDS SUMMARY | 2024-10-26 14:30 | XMS_ITS | Encounter Summary ---
Author Organization [facility] Address [address] [place] [address] Care Team Providers Care Chemistry Laboratory Technician Name Role Phone Vitaly Manzanares MD Primary Care Provider [phone] Encounter Details Date Type Department Care Team (Late st Contact Info) Description 01/25/2003 Outpatient Historical [facility] Internal Medicine [id number] [place] [address] Gadiel Christensen MD [address] [place] [phone] Social History Tobacco Use Types Packs/Day Years Used Date Smoking Tobacco: Never Assessed Comments Unknown Sex and Gender Information Value Date Recorded Sex Assigned at Not on file Legal Sex Female 5:01 AM PARADICHLOROBENZENE TENDER Gender Identity Not on file Sexual Orientation Not on file documented as of this encounter Plan of Treatment Upcoming Encounters Date Type Department Care Team (Late Contact Info) Description 01/16/2025 10:30 AM PARADICHLOROBENZENE TENDER Office Visit [facility] Heart and Vascular At [address] [place] [address] Esteban Dueñas MD [address] [place] [address] [address] [place] [address] documented as of this encounter Visit Diagnoses Not on filedocumented in this encounter Care Teams Chemistry Laboratory Technician Relationship Specialty Start Date End Date Vitaly Manzanares MD [address] [place] [address] PCP - General Family Practice 05/19/22 documented as of this encounter
--- OUTSIDE RECORDS SUMMARY | 2024-10-26 14:30 | XMS_ITS | Encounter Summary ---
Author Organization [facility] Address [address] [place] [address] Care Team Providers Care Social Studies Department Chair Name Role Phone Vitaly Manzanares MD Primary Care Provider [phone] Encounter Details Date Type Department Care Team (Late st Contact Info) Description 01/15/2003 Outpatient Historical [facility] Internal Medicine [address] [place] [address] Gadiel Christensen MD [address] [place] [phone] Social History Tobacco Use Types Packs/Day Years Used Date Smoking Tobacco: Never Assessed Comments Unknown Sex and Gender Information Value Date Recorded Sex Assigned at Not on file Legal Sex Female 5:[address]NAGER Gender Identity Not on file Sexual Orientation Not on file documented as of this encounter Plan of Treatment Upcoming Encounters Date Type Department Care Team (Late Contact Info) Description 01/16/2025 10:[address]NAGER Office Visit [facility] Heart and Vascular At [address] [place] [address] Esteban Dueañs MD [address] [place] [address] [address] [place] [address] documented as of this encounter Visit Diagnoses Not on filedocumented in this encounter Care Teams Social Studies Department Chair Relationship Specialty Start Date End Date Vitaly Manzanares MD [address] [place] [address] PCP - General Family Practice 05/19/22 documented as of this encounter
--- OUTSIDE RECORDS SUMMARY | 2024-10-26 14:30 | XMS_ITS | Encounter Summary ---
Author Organization [facility] Address [facility] [place] [address] Care Team Providers Care Merchandise Examiner Name Role Phone Esteban Casanova MD Primary Care Provider Encounter Details Date Type Department Care Team (Late st Contact Info) Description 11/21/[address] [facility] [address] [place] [address] Mike Madrigal MD [address] [facility] [address] [place] [address] Social History Tobacco Use Types Packs/Day Years Used Date Smoking Tobacco: Never Smokeless Tobacco: Never Alcohol Use Standard Drinks/Week Comments Not Currently 0 (1 standard drink = 0.6 oz pur e alcohol) Comments No Sex and Gender Information Value Date Recorded Sex Assigned at Not on file Legal Sex Female 1:00 PM OUTSOLE COMPRESSOR Gender Identity Not on file Sexual Orientation [...] DETECTED NOT DETECTED 11/25/2019 4:01 PM CDT [email or web address] Comment: A Not Detected (negative) test [...] providers and patients using the following websites: https://www.[employer]olooka.com/home/Covid-19/HCP/NAAT/fact-sheet2 https://www.[employer]olooka.com/home/Covid-19/Patients/NAAT/ fact-sheet2 This test has been authorized by the FDA under an Emergency Use Authorization (EUA) for use by authorized laboratories. Due to the current public health emergency, [facility] is receiving a high volume of samples [...] about COVID-19 can be found at the [facility] website: www.[facility]olooka.com/Covid19. Test performed at [email or web address] [address] [place] [address] Director: NESSA MCNALLY DO,MPH FIRST TEST UNKNOWN 11/24/2019 3:42 PM CDT [facility] EMPLOYED IN HEALTHCARE NO 11/24/2019 3:42 PM CDT [facility] SYMPTOMATIC DEFINED BY CDC NO 11/24/2019 3:42 PM CDT [facility] DATE OF SYMPTOM ONSET NON-APPLICABLE 11/24/2019 3:42 PM CDT [facility] HOSPITALIZATION STATUS NO 11/24/2019 3:42 PM CDT [facility] PATIENT IN ICU NO 11/24/2019 3:42 PM CDT [facility] RESIDENT OF CONGREGATE CARE NO 11/24/2019 3:42 PM CDT [facility] NO 11/24/2019 3:42 PM CDT [facility] PATIENT'S RACE UNKNOWN 11/24/2019 3:42 PM CDT [facility] ETHNICITY UNKNOWN 11/24/2019 3:42 PM CDT [facility] SOURCE (QST) NASOPHARYNGEAL SWAB 11/24/2019 11:54 AM CDT [facility] NASOPHARYNGEAL SWAB / Unknown 11/24/2019 11:57 AM CDT us Mike Madrigal MD MICROBIOLOGY - GENERAL ORDERAB LES Final Result Performing Organization Address City/State/[facility] Co de Phone Number [facility] [address] [place] [address], [place] [phone] [email or web address] [id number] [place] [address], documented in this encounter Visit Diagnoses Diagnosis Preop testing- Primary Preoperative examination, unspecified documented in this encounter Additional Health Concerns Infection Onset Date Last Indicated Resolved Time COVID-19 Rule Out 11/24/2019 11/24/2019 11/25/2019 4:01 PM CDT documented as of this encounter Care Teams Merchandise Examiner Relationship Specialty [place] [address] [place] [address] PCP - General INTERNAL MEDICINE 05/16/19 documented as of this encounter
--- OUTSIDE RECORDS SUMMARY | 2024-10-26 14:30 | XMS_ITS | Encounter Summary ---
Author Organization [facility] Address [address] [place] [address] Care Team Providers Care Forest Engineer Name Role Phone Vitaly Manzanares MD Primary Care Provider [phone] Encounter Details Date Type Department Care Team (Late st Contact Info) Description 02/23/2003 Outpatient Historical [facility]) [address] [place] [phone] Esteban Dueñas MD [address] [place] [address] [address] [place] [address] Social History Tobacco Use Types Packs/Day Years Used Date Smoking Tobacco: Never Assessed Comments Unknown Sex and Gender Information Value Date Recorded Sex Assigned at Not on file Legal Sex Female 5:01 AM VOLUNTEER FIRE FIGHTER Gender Identity Not on file Sexual Orientation Not on file documented as of this encounter Plan of Treatment Upcoming Encounters Date Type Department Care Team (Late Contact Info) Description 01/16/2025 10:30 AM VOLUNTEER FIRE FIGHTER Office Visit [facility] Heart and Vascular At [address] [place] [address] Esteban Dueñas MD [address] [place] [address] [address] [place] [address] documented as of this encounter Visit Diagnoses Not on filedocumented in this encounter Care Teams Forest Engineer Relationship Specialty Start Date End Date Vitaly Manzanares MD [address] [place] [address] PCP - General Family Practice 05/19/22 documented as of this encounter
--- OUTSIDE RECORDS SUMMARY | 2024-10-26 14:30 | XMS_ITS | Clinical Summary ---
Author Organization [facility] Address [facility] [place] [address] Care Team Providers Care Rubberizing Mechanic Name Role Phone Esteban Casanova MD Primary [...] on file Legal Sex Female 1:00 PM EXERCISE TEACHER Gender Identity Not on file Sexual Orientation [...] this topic Medical Devices Implanted Type Area Preschool Special Education Teacher Device Identifier Shelf Expiration Date Model / Serial / Lot Iol [employer] Zcboo - [id number] Implanted:Qty: 1 on 05/22/2019 by Mike Madrigal MD at [facility] Lens [employer] 07/18/2021 [id number] / / [id number] Iol Velasquez [employer]ision Zcboo - [id number] Implanted:Qty: 1 on 11/27/2019 by Mike Madrigal MD at [facility] Lens Right: Eye [employer] 09/25/2023 ZCB00 / [id number] / Explanted Type Area Preschool Special Education Teacher Device Identifier Shelf Expiration Date Model / Serial / Lot 3 Coronary Stents Insurance AET[employer] Care Teams Rubberizing Mechanic Relationship Specialty Start [place] [address] [place] [address] PCP - General INTERNAL MEDICINE 05/16/19
--- OUTSIDE RECORDS SUMMARY | 2024-10-26 14:30 | XMS_ITS | Clinical Summary ---
Author Organization [facility] Address [address] [place] [address] Phone Care Team Providers Care Wallpaper Consultant Name Role Phone Vitaly Manzanares MD Primary Care Provider [phone] Medications ISOSORBIDE DINITRATE PO Take by mouth. [...] Date Type Department Care Team Description 10/20/2024 10:00 AM CDT Outpatient Clinic Visit [facility] [address] [place] [address] Marcell Joyner, VER[place] Adjustment disorder with depressed mood (Primary Dx) Discharge Disposition: Discharged to home or Selfcare 10/20/2024 Travel 09/27/2024 1:30 PM CDT [facility] [address] [place] [address] Marcell Joyner LCSW Adjustment disorder with depressed mood (Primary Dx) Discharge Disposition: Discharged to home or Selfcare 09/27/2024 Travel 09/04/2024 10:00 AM CDT [facility] [address] [place] [address] Marcell Joyner LCSW Adjustment disorder with depressed mood (Primary Dx) Discharge Disposition: Discharged to home or Selfcare 09/04/2024 Travel 08/15/2024 10:00 AM CDT Outpatient Clinic Visit [facility] [address] [place] [address] Marcell Joyner LCSW Adjustment disorder with depressed mood (Primary Dx) Discharge Disposition: Discharged to home or Selfcare 08/14/2024 Travel from Last 3 Months Family History [...] Department Care Team (Latest Contact Info) Description 11/21/2024 9:15 AM CDT [facility] [address] [place] [address] Marcell Joyner LCSW [address] [place] [address] Discharge Disposition: Discharged to home or Selfcare [...] Mammogram 10/15/2022 10/15/2021, 10/15/2021 SARS-COV-2 Immunization ( - season) 2023 Influenza Immunization (#1) 2024 Hepatitis [...] track(2024 10:18 AM CDT) Yes Marcell Joyner, WOOD AND HARDWARE OUTFITTER Note: I need help coping with all my physical health issues and caregiver stress along with physical limitations from my heart. Goal/Objective: Improve coping skills. Anticipated Time Frame for Goal Completion: 6 months Goal Reviewed with: patient Readiness to change: Ready to change Department associated with goal: [facility] Steps to [...] sessions Insurance MEDICARE C AETNA Care Teams Wallpaper Consultant Relationship Specialty Start Date End Date Vitaly Manzanares MD [address] [place] [address] PCP - General Family Medicine 04/21/24
--- OUTSIDE RECORDS SUMMARY | 2024-10-26 14:30 | XMS_ITS | Encounter Summary ---
Author Organization [facility] Address [address] [place] [address] Care Team Providers Care Shotgun Shell Loading Machine Operator Name Role Phone Vitaly Manzanares MD Primary Care Provider [phone] Encounter Details Date Type Department Care Team (Latest Contact Info) Description 02/23/2003 Outpatient Historical [facility] ChristensenGadiel MD [address] [place] [phone] CHEST PAIN NOS (Primary Dx) Social History Tobacco Use Types Packs/Day Years Used Date Smoking Tobacco: Never Assessed Comments Unknown Sex and Gender Information Value Date Recorded Sex Assigned at Not on file Legal Sex Female 5:01 AM METAL LEAF LAYER Gender Identity Not on file Sexual Orientation Not on file documented as of this encounter Plan of Treatment Upcoming Encounters Date Type Department Care Team (Late st Contact Info) Description 01/16/2025 10:30 AM METAL LEAF LAYER Office Visit [facility] Heart and Vascular At [address] [place] [address] Esteban Dueñas MD [address] [place] [address] [address] [place] [address] documented as of this encounter Visit Diagnoses Diagnosis Chest pain, unspecified- Primary documented in this encounter Care Teams Shotgun Shell Loading Machine Operator Relationship Specialty Start Date End Date Vitaly Manzanares MD [address] [place] [address] PCP - General Family Practice 05/19/22 documented as of this encounter
== END 2024-10-26 14:27 | disposition home or self-care (01) ==
LOC: CHSIMG 14:27
PROVIDERS: PCP Family Medicine; Visit Provider Family Medicine
DX: H53.9 Unspecified visual disturbance (principal); H53.8 Other visual disturbances; R42 Dizziness and giddiness; S09.90XA Unspecified injury of head, initial encounter
CPT/HCPCS: 70551

== ENCOUNTER 2024-12-22 09:12 | Outpatient (CLI) | payer MEDICARE, SELFPAY ==
[2024-12-22 09:30] LABS: Hematocrit 38.0 % (35.0-42.0); Hemoglobin 12.5 g/dL (11.7-13.8); Immature Granulocyte Percent A 0.4 % (0.0-0.0); Lymphocytes Absolute Auto 1.37 K/mm3 (1.10-4.50); Mean Corpuscular HGB Conc 32.9 g/dL (32-36); Mean Corpuscular Hemoglobin 31.1 pg (27.0-31.0); Mean Corpuscular Volume 94.5 fL (78.0-102.0); Nucleated Red Blood Cells Absolute Auto 0.00 K/mm3 (0.00-0.00); Nucleated Red Blood Cells Perc 0.0 % (0-0.0); Platelet Count Result 197 K/mm3 (150-420); Red Blood Count 4.02 M/mm3 (4.20-5.40); White Blood Count 5.4 K/mm3 (4.8-10.8)
--- OUTSIDE RECORDS SUMMARY | 2024-12-22 09:34 | XMS_ITS | Encounter Summary ---
Author Organization [facility] Address [address] [place] [address] Care Team Providers Care Communications Field Technician Name Role Phone Vitaly Manzanares MD Primary Care Provider [phone] Encounter Details Date Type Department Care Team (Late st Contact Info) Description 05/05/2002 Outpatient Historical [facility] Gadiel Andrade MD [address] [place] [id number] SCREENING MAMM-MAILG NEOPL-OTHER (Primary Dx) Social History Tobacco Use Types Packs/Day Years Used Date Smoking Tobacco: Never Assessed Comments Unknown Sex and Gender Information Value Date Recorded Sex Assigned at Not on file Legal Sex Female 5:01 AM AUTISM SPECIALIST Gender Identity Not on file Sexual Orientation Not on file documented as of this encounter Plan of Treatment Upcoming Encounters Date Type Department Care Team (Latest Contact Info) Description 12/27/2024 10:01 AM CDT Hospital Encounter [facility] Certification And Selection Specialist [address] [place] [address] Conor Grimm MD [address] [place] [address] 2014 [place], [place] [id number] Atherosclerosis of [place] coronary artery of [place] heart, unspecified whether angina present 12/27/2024 10:01 AM CDT - 12/27/2024 10:54 AM CDT Surgery [facility] Certification And Selection Specialist [address] [place] [address] Conor Grimm MD [address] [place] [address] 2014 [place] [address] Left heart cath documented as of this encounter Visit Diagnoses Diagnosis Other screening mammogram- Primary Atherosclerosis of [place] coronary artery of [place] heart, unspecified whether angina present Chronic systolic (congestive) heart failure Coronary artery disease involving [place] coronary artery of [place] heart, unspecified whether angina present Atherosclerosis of [place] coronary artery of [place] heart, unspecified whether angina present Chronic systolic (congestive) heart failure Coronary artery disease involving [place] coronary artery of [place] heart, unspecified whether angina present documented in this encounter Care Teams Communications Field Technician Relationship Specialty Start Date End Date Vitaly Manzanares MD [address] [place] [address] PCP - General Family Practice 05/19/22 documented as of this encounter
--- OUTSIDE RECORDS SUMMARY | 2024-12-22 09:34 | XMS_ITS | Encounter Summary ---
Author Organization [facility] Address [address] [place] [address] Care Team Providers Care Farm Mechanic Name Role Phone Vitaly Manzanares MD Primary Care Provider [phone] Encounter Details Date Type Department Care Team (Late st Contact Info) Description 12/30/2001 Outpatient Historical [facility] Internal Medicine [place] [address] [place] [address] Esteban Otto MD [address] [place] [address] Social History Tobacco Use Types Packs/Day Years Used Date Smoking Tobacco: Never Assessed Comments Unknown Sex and Gender Information Value Date Recorded Sex Assigned at Not on file Legal Sex Female 5:01 AM SPECIAL DELIVERY MESSENGER Gender Identity Not on file Sexual Orientation Not on file documented as of this encounter Plan of Treatment Upcoming Encounters Date Type Department Care Team (Latest Contact Info) Description 12/27/2024 10:01 AM CDT Hospital Encounter [facility] [employer] [address] [place] [address] Conor Grimm MD [address] [facility] [address] [place] [address] Atherosclerosis of [place] coronary artery of [place] heart, unspecified whether angina present 12/27/2024 10:01 AM CDT - 12/27/2024 10:54 AM CDT Surgery [facility] [employer] [address] [place] [address] Conor Grimm MD [address] [place] [address] 2014 [place] [address] Left heart cath documented as of this encounter Visit Diagnoses Not on filedocumented in this encounter Care Teams Farm Mechanic Relationship Specialty Start Date End Date Vitaly Manzanares MD [address] [place] [address] PCP - General Family Practice 05/19/22 documented as of this encounter
--- OUTSIDE RECORDS SUMMARY | 2024-12-22 09:34 | XMS_ITS | Encounter Summary ---
Author Organization [facility] Address [address] [place] [address] Care Team Providers Care Media Aid Name Role Phone Vitaly Manzanares MD Primary Care Provider [phone] Encounter Details Date Type Department Care Team (Late st Contact Info) Description 05/27/2001 Outpatient Historical [facility] Internal Medicine [place] [address] [place] [address] Gadiel Christensen MD [address] [place] [id number] Social History Tobacco Use Types Packs/Day Years Used Date Smoking Tobacco: Never Assessed Comments Unknown Sex and Gender Information Value Date Recorded Sex Assigned at Not on file Legal Sex Female 5:01 AM TOUR NARRATOR Gender Identity Not on file Sexual Orientation Not on file documented as of this encounter Plan of Treatment Upcoming Encounters Date Type Department Care Team (Latest Contact Info) Description 12/27/2024 10:01 AM CDT Hospital Encounter [facility] Therapeutic Assistant [address] [place] [address] Conor Grimm MD [address] [place] [address] [address] [place] [address] Atherosclerosis of [place] coronary artery of [place] heart, unspecified whether angina present 12/27/2024 10:01 AM CDT - 12/27/2024 10:54 AM CDT Surgery [facility] Therapeutic Assistant [address] [place] [address] Conor rGimm MD [address] [place] [address] 2015 [place] [address] Left heart cath documented as of this encounter Visit Diagnoses Not on filedocumented in this encounter Care Teams Media Aid Relationship Specialty Start Date End Date Vitaly Manzanares MD [address] [place] [address] PCP - General Family Practice 05/19/22 documented as of this encounter
--- OUTSIDE RECORDS SUMMARY | 2024-12-22 09:34 | XMS_ITS | Encounter Summary ---
Author Organization [facility] Address [address] [place] [address] Care Team Providers Care A&P Technician Name Role Phone Vitaly Manzanares MD Primary Care Provider [phone] Encounter Details Date Type Department Care Team (Late st Contact Info) Description 05/10/2002 Outpatient Historical [facility] Internal Medicine [place] [address] [place] [address] Gadiel Christensen MD [address] [place] [id number] Social History Tobacco Use Types Packs/Day Years Used Date Smoking Tobacco: Never Assessed Comments Unknown Sex and Gender Information Value Date Recorded Sex Assigned at Not on file Legal Sex Female 5:01 AM CONSULTING PSYCHIATRIST Gender Identity Not on file Sexual Orientation Not on file documented as of this encounter Plan of Treatment Upcoming Encounters Date Type Department Care Team (Latest Contact Info) Description 12/27/2024 10:01 AM CDT Hospital Encounter [facility] Medical Technologist Generalist [address] [place] [address] Conor Grimm MD [address] [place] [address] [address] [place] [address] Atherosclerosis of [place] coronary artery of [place] heart, unspecified whether angina present 12/27/2024 10:01 AM CDT - 12/27/2024 10:54 AM CDT Surgery [facility] Medical Technologist Generalist [address] [place] [address] Conor Grimm MD [address] [place] [address] 2015 [place] [address] Left heart cath documented as of this encounter Visit Diagnoses Not on filedocumented in this encounter Care Teams A&P Technician Relationship Specialty Start Date End Date Vitaly Manzanares MD [address] [place] [address] PCP - General Family Practice 05/19/22 documented as of this encounter
--- OUTSIDE RECORDS SUMMARY | 2024-12-22 09:34 | XMS_ITS | Encounter Summary ---
Author Organization [facility] Address 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 Gender Identity Not on file Sexual Orientation Not on file documented as of this encounter Plan of Treatment Upcoming Encounters Date Type Department Care Team (Latest Contact Info) Description 12/27/2024 10:01 AM CDT Hospital Encounter [facility] Continuous Vulcanizing Machine Operator [address] [place] [address] Conor Grimm MD [address] [place] [address] [address] [place] [address] Atherosclerosis of [place] coronary artery of [place] heart, unspecified whether angina present 12/27/2024 10:01 AM CDT - 12/27/2024 10:54 AM CDT Surgery [facility] Continuous Vulcanizing Machine Operator [address] [place] [address] Conor Grimm MD [address] [place] [address] 2015 [place] [address] Left heart cath documented as of this encounter Visit Diagnoses Not on filedocumented in this encounter Care Teams Core Manager Relationship Specialty Start Date End Date Vitaly Manzanares MD [address] [place] [address] PCP - General Family Practice 05/19/22 documented as of this encounter
--- OUTSIDE RECORDS SUMMARY | 2024-12-22 09:34 | XMS_ITS | Encounter Summary ---
Author Organization [facility] Address [address] [place] [address] Care Team Providers Care Glue Size Machine Operator Name Role Phone Vitaly Manzanares MD Primary Care Provider [phone] Encounter Details Date Type Department Care Team (Late st Contact Info) Description 07/18/[address] 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 Gender Identity Not on file Sexual Orientation Not on file documented as of this encounter Plan of Treatment Upcoming Encounters Date Type Department Care Team (Latest Contact Info) Description 12/27/2024 10:01 AM CDT Hospital Encounter [facility] Waste Minimization Technician [address] [place] [address] Conor Grimm MD [address] [place] [address] [address] [place] [address] Atherosclerosis of [place] coronary artery of [place] heart, unspecified whether angina present 12/27/2024 10:01 AM CDT - 12/27/2024 10:54 AM CDT Surgery [facility] Waste Minimization Technician [address] [place] [address] Conor Grimm MD [address] [place] [address] 2015 [place] [address] Left heart cath documented as of this encounter Visit Diagnoses Not on filedocumented in this encounter Care Teams Glue Size Machine Operator Relationship Specialty Start Date End Date Vitaly Manzanares MD [address] [place] [address] PCP - General Family Practice 05/19/22 documented as of this encounter
--- OUTSIDE RECORDS SUMMARY | 2024-12-22 09:34 | XMS_ITS | Encounter Summary ---
Author Organization [facility] Address [address] [place] [address] Care Team Providers Care Combination Operator Name Role Phone Vitaly Manzanares MD Primary Care Provider [phone] Encounter Details Date Type Department Care Team (Late st Contact Info) Description 05/15/2002 Outpatient Historical [facility] Internal Medicine [place] [address] [place] [address] Gadiel Christensen MD [address] [place] [phone] Social History Tobacco Use Types Packs/Day Years Used Date Smoking Tobacco: Never Assessed Comments Unknown Sex and Gender Information Value Date Recorded Sex Assigned at Not on file 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 Gender Identity Not on file Sexual Orientation Not on file documented as of this encounter Plan of Treatment Upcoming Encounters Date Type Department Care Team (Latest Contact Info) Description 12/27/2024 10:01 AM CDT Hospital Encounter [facility] Rock Climbing Team Member [address] [place] [address] Conor Grimm MD [address] [place] [address] [address] [place] [address] Atherosclerosis of [place] coronary artery of [place] heart, unspecified whether angina present 12/27/2024 10:01 AM CDT - 12/27/2024 10:54 AM CDT Surgery [facility] Rock Climbing Team Member [address] [place] [address] Coonr Grimm MD [address] [place] [address] 2015 [place] [address] Left heart cath documented as of this encounter Visit Diagnoses Not on filedocumented in this encounter Care Teams Combination Operator Relationship Specialty Start Date End Date Vitaly Manzanares MD [address] [place] [address] PCP - General Family Practice 05/19/22 documented as of this encounter
--- OUTSIDE RECORDS SUMMARY | 2024-12-22 09:34 | XMS_ITS | Encounter Summary ---
Author Organization [facility] Address [address] [place] [address] Care Team Providers Care Skiver Heel Tap Name Role Phone Vitaly Manzanares MD Primary Care Provider [phone] Encounter Details Date Type Department Care Team (Late st Contact Info) Description 06/09/2002 Outpatient Historical [facility] Internal Medicine [place] [address] [place] [address] Gadiel Christensen MD [address] [place] [phone] Social History Tobacco Use Types Packs/Day Years Used Date Smoking Tobacco: Never Assessed Comments Unknown Sex and Gender Information Value Date Recorded Sex Assigned at Not on file 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 Gender Identity Not on file Sexual Orientation Not on file documented as of this encounter Plan of Treatment Upcoming Encounters Date Type Department Care Team (Latest Contact Info) Description 12/27/2024 10:01 AM CDT Hospital Encounter [facility] Biztalk Developer [address] [place] [address] Conor Grimm MD [address] [place] [address] [address] [place] [address] Atherosclerosis of [place] coronary artery of [place] heart, unspecified whether angina present 12/27/2024 10:01 AM CDT - 12/27/2024 10:54 AM CDT Surgery [facility] Biztalk Developer [address] [place] [address] Conor Grimm MD [address] [place] [address] 2015 [place] [address] Left heart cath documented as of this encounter Visit Diagnoses Not on filedocumented in this encounter Care Teams Skiver Heel Tap Relationship Specialty Start Date End Date Vitaly Manzanares MD [address] [place] [address] PCP - General Family Practice 05/19/22 documented as of this encounter
--- OUTSIDE RECORDS SUMMARY | 2024-12-22 09:34 | XMS_ITS | Encounter Summary ---
Author Organization [facility] Address [address] [place] [address] Care Team Providers Care Erosion Control Coordinator Name Role Phone Vitaly Manzanares MD Primary Care Provider [phone] Encounter Details Date Type Department Care Team (Late st Contact Info) Description 10/19/2002 Outpatient Historical [facility] Internal Medicine [place] [address] [place] [address] Gadiel Christensen MD [address] [place] [phone] Social History Tobacco Use Types Packs/Day Years Used Date Smoking Tobacco: Never Assessed Comments Unknown Sex and Gender Information Value Date Recorded Sex Assigned at Not on file 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 Gender Identity Not on file Sexual Orientation Not on file documented as of this encounter Plan of Treatment Upcoming Encounters Date Type Department Care Team (Latest Contact Info) Description 12/27/2024 10:01 AM CDT Hospital Encounter [facility] Shellfish Manager [address] [place] [address] Conor Grimm MD [address] [place] [address] [address] [place] [address] Atherosclerosis of [place] coronary artery of [place] heart, unspecified whether angina present 12/27/2024 10:01 AM CDT - 12/27/2024 10:54 AM CDT Surgery [facility] Shellfish Manager [address] [place] [address] Conor Grimm MD [address] [place] [address] 2015 [place] [address] Left heart cath documented as of this encounter Visit Diagnoses Not on filedocumented in this encounter Care Teams Erosion Control Coordinator Relationship Specialty Start Date End Date Vitaly Manzanares MD [address] [place] [address] PCP - General Family Practice 05/19/22 documented as of this encounter
--- OUTSIDE RECORDS SUMMARY | 2024-12-22 09:34 | XMS_ITS | Encounter Summary ---
Author Organization [facility] Address [address] [place] [address] Care Team Providers Care Master Deputy Sheriff Court Security Name Role Phone Vitaly Manzanares MD Primary Care Provider [phone] Encounter Details Date Type Department Care Team (Late st Contact Info) Description 11/07/[address] 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 Gender Identity Not on file Sexual Orientation Not on file documented as of this encounter Plan of Treatment Upcoming Encounters Date Type Department Care Team (Latest Contact Info) Description 12/27/2024 10:01 AM CDT Hospital Encounter [facility] Ticket Worker [address] [place] [address] Conor Grimm MD [address] [place] [address] [address] [place] [address] Atherosclerosis of [place] coronary artery of [place] heart, unspecified whether angina present 12/27/2024 10:01 AM CDT - 12/27/2024 10:54 AM CDT Surgery [facility] Ticket Worker [address] [place] [address] Conor Grimm MD [address] [place] [address] 2015 [place] [address] Left heart cath documented as of this encounter Visit Diagnoses Not on filedocumented in this encounter Care Teams Master Deputy Sheriff Court Security Relationship Specialty Start Date End Date Vitaly Manzanares MD [address] [place] [address] PCP - General Family Practice 05/19/22 documented as of this encounter
--- OUTSIDE RECORDS SUMMARY | 2024-12-22 09:35 | XMS_ITS | Encounter Summary ---
Author Organization [facility] Address [address] [place] [address] Care Team Providers Care Maintenance Team Member Name Role Phone Vitaly Manzanares MD Primary Care Provider [phone] Encounter Details Date Type Department Care Team (Late st Contact Info) Description 05/19/2005 Outpatient Historical [facility] Internal Medicine [place] [address] [place] [address] Gadiel Christensen MD [address] [place] [phone] Social History Tobacco Use Types Packs/Day Years Used Date Smoking Tobacco: Never Assessed Comments Unknown Sex and Gender Information Value Date Recorded Sex Assigned at Not on file 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 Gender Identity Not on file Sexual Orientation Not on file documented as of this encounter Plan of Treatment Upcoming Encounters Date Type Department Care Team (Latest Contact Info) Description 12/27/2024 10:01 AM CDT Hospital Encounter [facility] Item Processing Clerk [address] [place] [address] Conor Grimm MD [address] [place] [address] [address] [place] [address] Atherosclerosis of [place] coronary artery of [place] heart, unspecified whether angina present 12/27/2024 10:01 AM CDT - 12/27/2024 10:54 AM CDT Surgery [facility] Item Processing Clerk [address] [place] [address] Conor Grimm MD [address] [place] [address] 2015 [place] [address] Left heart cath documented as of this encounter Visit Diagnoses Not on filedocumented in this encounter Care Teams Maintenance Team Member Relationship Specialty Start Date End Date Vitaly Manzanares MD [address] [place] [address] PCP - General Family Practice 05/19/22 documented as of this encounter
--- OUTSIDE RECORDS SUMMARY | 2024-12-22 09:35 | XMS_ITS | Encounter Summary ---
Author Organization [facility] Address 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 Gender Identity Not on file Sexual Orientation Not on file documented as of this encounter Plan of Treatment Upcoming Encounters Date Type Department Care Team (Latest Contact Info) Description 12/27/2024 10:01 AM CDT Hospital Encounter [facility] Him Tech [address] [place] [address] Conor Grimm MD [address] [place] [address] [address] [place], [place] [id number] Atherosclerosis of [place] coronary artery of [place] heart, unspecified whether angina present 12/27/2024 10:01 AM CDT - 12/27/2024 10:54 AM CDT Surgery [facility] Him Tech [address] [place] [address] Conor Grimm MD [address] [place] [address] 2014 [place] [address] Left heart cath documented as of this encounter Visit Diagnoses Diagnosis Degeneration of intervertebral disc, site unspecified- Primary Atherosclerosis of [place] coronary artery of [place] heart, unspecified whether angina present Chronic systolic (congestive) heart failure Coronary artery disease involving [place] coronary artery of [place] heart, unspecified whether angina present Atherosclerosis of [place] coronary artery of [place] heart, unspecified whether angina present Chronic systolic (congestive) heart failure Coronary artery disease involving [place] coronary artery of [place] heart, unspecified whether angina present documented in this encounter Care Teams It Business Process Architect Relationship Specialty Start Date End Date Vitaly Manzanares MD [address] [place] [address] PCP - General Family Practice 05/19/22 documented as of this encounter
--- OUTSIDE RECORDS SUMMARY | 2024-12-22 09:35 | XMS_ITS | Clinical Summary ---
Author Organization [facility] Address [address] [place] [address] Care Team Providers Care Sueding And Buffing Machine Operator Name Role Phone Vitaly Manzanares MD Primary Care Provider [phone] Allergies Active Allergy Reactions Criticality Noted Date [...] Breath/Wheezing,Rash High 02/24/2016 Naratriptan Rash Low 04/22/2007 Wqlygxravkbn-Sph-Votnywxf Unknown 04/22/2007 Oseltamivir Phosphate Rash Low 04/22/2007 Penicillins Unknown 04/22/2007 As a child Pneumococcal Vaccine Anaphylaxis,Rash High 1 Prochlorperazine Edisylate Unknown 8 Propoxyphene Rash Low 04/22/2007 [place] Anaphylaxis,Shortnes s of Breath/Wheezing High 02/24/2016 Sulfa [...] as needed for Nausea. 100 Tablet 2 Active benzonatate (TESSALON) 200 mg capsule Take 200 mg by mouth 3 times daily. Not taking Active fluticasone (FLONASE) 50 mcg/spray [place], Suspension USE TWO SPRAYS IN EACH NOSTRIL ONCE DAILY. 48 Gram 3 Active Additional Information Patient taking differently: USE TWO SPRAYS IN EACH NOSTRIL ONCE DAILYPRN, Reported on 12/18/2024 albuterol HFA 90 mcg inhaler Take 2 Puffs by inhalation every 4 hours as needed for Wheezing. 8.5 Gram 3 018 Active acetaminophen-ca ffeine-butalbita l (FIORICET) 325-40-50 mg tabletIndication s:Migraine with aura and without status migrainosus, not intractable Take 1 Tablet by mouth every 4 hours as needed for Headaches. 100 Tablet Active Additional Information Patient not taking.Reported on 12/18/2024 EPINEPHrine (EPIPEN) 0.3 mg/0.3 mL Auto-InjectorInd ications:Aspirin allergy Inject 0.3 mL (0.3 mg) by intramuscular injection 1 time daily as needed for Anaphylaxis. 1 Package 019 Active HYDROcodone-acet aminophen (NORCO) 5-325 mg tabletIndication s:Migraine with aura and without status migrainosus, not intractable,Hist ory of uterine cancer Take 1 Tablet by mouth every 6 hours as needed for Pain, Moderate. Max Daily Amount: 4 Tablets 20 Tablet Active Additional Information Patient not taking.Reported on 12/18/2024 calcium-cholecal ciferol 500 mg(1,250mg) -400 unit tablet Take 1 Tablet by mouth daily. Active acetaminophen (TYLENOL) 500 mg tablet Take 500 mg by mouth every 6 hours as needed. Not taking Active pantoprazole (PROTONIX) 40 mg Tablet, Delayed Release (E.C.) Take 40 mg by mouth 2 times daily. Active IBUPROFEN ORAL Take by mouth. PRN Active alendronate (FOSAMAX) 70 mg tablet Take 1 Tablet by mouth every 7 days. 024 Active coenzyme Q10 (Co Q-10) 200 mg CapsuleIndicatio ns:Coronary artery disease involving nikolai heart with unstable angina pectoris, unspecified vessel or lesion type Take 1 Capsule (200 mg) by mouth daily. 100 Capsule 3 Active Additional Information Patient not taking.Reported on 12/18/2024 isosorbide mononitrate (IMDUR) 120 mg Extended Release 24 hour tablet TAKE 1 TABLET (120 MG) BY MOUTH DAILY IN THE MORNING. 90 Tablet 3 024 Active ranolazine ER (RANEXA) 500 mg Extended Release 12 hour tablet TAKE 1 TABLET BY MOUTH EVERY 12 HOURS 180 Tablet 3 024 Active cilostazoL (PLETAL) 100 mg Tablet TAKE 1 TABLET (100 MG) BY MOUTH 2 TIMES DAILY BEFORE MEALS. 180 Tablet 3 025 Active atorvastatin (LIPITOR) 40 mg tabletIndication s:Mixed hyperlipidemia TAKE 1 TABLET BY MOUTH EVERYDAY AT BEDTIME 90 Tablet 3 025 Active lisinopriL (PRINIVIL) 2.5 mg tabletIndication s:Essential hypertension Take 1 Tablet (2.5 mg) by mouth 2 times daily. 180 Tablet 3 025 Active carvediloL (COREG) 12.5 mg tablet Take 1 Tablet (12.5 mg) by mouth 2 times daily. 180 Tablet 3 025 Active nitroglycerin (NITROSTAT) 0.4 mg Tablet, Sublingual Dissolve 1 tab under tongue, every 5 min, as needed for chest pain, for a total of 3 tabs. If pain persists, call 911. 25 Tablet 1 025 Active Additional Information Patient not taking.Reported on 12/18/2024 clopidogreL (PLAVIX) 75 mg Tablet TAKE 1 TABLET BY MOUTH EVERY DAY 90 Tablet 1 025 Active predniSONE (DELTASONE) 50 mg tablet Take 1 Tablet (50 mg) by mouth see administration instructions. Take 1 tablet in AM and PM on 12/26. Take 1 tablet in AM on 12/27. 3 Tablet 025 Active predniSONE (DELTASONE) 50 mg tablet Take 1 Tablet (50 mg) by mouth see administration instructions. Take 1 (50 mg) by mouth the day before procedure. Take 1 Tablet (50 mg) by mouth the morning of procedure. 2 Tablet 024 2024 Discontinued(R eorder) clopidogreL (PLAVIX) 75 mg Tablet TAKE 1 TABLET BY MOUTH EVERY DAY 90 Tablet 1 025 2024 Discontinued Active Problems Patient Care Coordination No te Formatting of this note migh t be different from the original. 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 Kidney stone 12/15/2011 Overview (12/15/2011): 9/[address] abd done for LLQ pain, without hydronephrosis Chronic cough 06/25/2010 Migraine 04/22/2007 Stress incontinence 04/22/2007 History of uterine cancer 04/22/2007 Overview (12/15/2011): History of, 1989. 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 (Primary Dx); Left ventricular systolic dysfunction, NYHA class 2; S/P coronary artery stents placement, 02/26/16, 11/13/16, 05/19/22, 01/05, 02/23/24; Shortness of breath; Allergic reaction to dye, subsequent encounter; Aspirin allergy; Chronic fatigue; Essential hypertension; Pure hypercholesterolemia 12/18/2024 Prep for Surgery [facility] At [address] [place] [address] Conor Grimm MD 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 (Primary Dx); Chronic systolic congestive heart failure; Atherosclerosis of nikolai coronary artery of nikolai heart without angina pectoris 12/18/2024 Telephone [facility] [address] [place] [phone] Richard Dueñas MD needs cath 11/24/2024 Abstract [facility] [address] [place] [address] Richard Dueñas MD 11/23/2024 Refill [facility] [address] [place] [address] Richard Dueñas MD 11/22/2024 Telephone [facility] [address] [place] [address] Richard Dueñas MD monitor results 10/31/2024 Abstract [facility] [address] [place] [address] Richard Dueñas MD 10/20/2024 Results Follow-Up [facility] [address] [place] [address] Jayshree Dodd RN COMPREHENSIVE METABOLIC PANEL, LIPID PANEL, BRAIN NATRIURETIC PEPTIDE, BNP OR PROBNP, MOBILE CARDIAC OUTPATIENT TELEMETRY 10/19/2024 10:09 AM CDT - 10/19/2024 11:59 PM CDT Hospital Encounter [facility] [address] [place] [address] Richard Dueñas MD Discharge Disposition: Home or Self Care 10/11/2024 11:15 AM CDT Video Visit [facility] [address] [place] [phone] Richard Dueñas MD Coronary artery disease of nikolai artery of nikolai heart with stable angina pectoris (Primary Dx); Near syncope; Benign essential HTN; S/P coronary artery stents placement, 02/26/16, 11/13/16, 05/19/22, 01/05, 02/23/24; Pure hypercholesterolemia; Atherosclerosis of aorta; Aspirin allergy; Allergic reaction to dye, subsequent encounter 10/11/2024 Telephone [facility] [address] [place] [address] Richard Dueñas MD heart monitor 09/27/2024 External Device Data STL ABSTRACTION Provider, Abstract 09/27/2024 External Device Data STL ABSTRACTION Provider, Abstract 09/26/2024 External Device Data STL ABSTRACTION Provider, Abstract 09/26/2024 Abstract [facility] [address] [place] [address] Richard Duñeas MD 09/25/2024 Telephone [facility] [address] [place] [address] Richard Dueñas MD Surgical Clearance 09/21/2024 Telephone [facility] [address] [place] [address] Richard Dueñas MD MEDICATION CLEARANCE from Last 3 Months Immunizations Immunization Administration [...] No 02/23/2024 Food Insecurity Answer Date Recorded Patient needs follow up regardin 07/05/2024 Transportation Needs Answer Date Record ed Patient needs follow up regardin 07/05/2024 Housing Stability Answer Date Recorded Social/Environmental Concerns No concerns Utility Needs Answer Date Recorded Patient needs follow up regardin 07/05/2024 Comments No Sex and Gender Information Value Date Recorded Sex Assigned at Not on file Legal Sex 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 Gender Identity Not on file Sexual Orientation Not on file Occupation Industry Job Start Date Job End Date Not on file Not on file Not on file Not on file Last Filed Vital Signs Vital Sign Reading Time Taken Comments Blood Pressure 138/82 12/18/2024 9:02 AM CDT Pulse 69 12/18/2024 9:02 AM CDT Temperature 36.3 C (97.4 F) 12/18/2024 9:02 AM CDT Respiratory Rate 18 02/23/2024 12:00 PM PACKAGE LINE OPERATOR Oxygen Saturation 94% 12/18/2024 9:02 AM CDT Inhaled Oxygen Concentration - - Weight 49.4 kg (109 lb) 10/11/2024 10:36 AM CDT Height 152.4 cm (5') 12/18/2024 9:02 AM CDT Body Mass Index 21.29 10/11/2024 10:36 AM CDT Plan of Treatment Upcoming Encounters Date Type Department Care Team (Latest Contact Info) Description 12/27/2024 10:01 AM CDT Hospital Encounter [facility] Surgical Technology Instructor [address] [place] [phone] Conor Grimm MD [address] [place] [address] [address] [place], [place] [phone] Atherosclerosis of nikolai coronary artery of nikolai heart, unspecified whether angina present 12/27/2024 10:01 AM CDT - 12/27/2024 10:54 AM CDT Surgery [facility] Surgical Technology Instructor [address] [place] [phone] Conor Grimm MD [address] [place] [address] [address] [place], [place] [phone] Left heart cath Health Maintenance Due Date Last Done Comments DTAP/TDAP/TD VACCINES (1 - Tdap) 1968 COLORECTAL SCREENING 1994 FIT/FOBT Q 1 year 1994 Flex Sig/CT Colonography Q 5 years 1994 Colorectal Cancer Screening 10/17/2021 FIT-DNA Q 3 years 10/17/2021 10/17/2018 INFLUENZA VACCINE (#1) 2024 RSV VACCINE (60+ or ) (1 - 1-dose 75+ series) 2024 OSTEOPOROSIS SCREENING 06/27/2025 06/27/2020, 2020 Medical Devices Implanted Type Area Die Keeper Device Identifier Shelf Expiration Date Model / Serial / Lot [employer]- 016 Implanted:Qty : 1 on 02/26/2016 by Rony Deleon MD Stent Coronary [employer] 02/11/2017 / / [id number] Description:bare metal stent placed in the obtuse marginal coronary artery number [facility] Implanted:Qty : 1 on 02/26/2016 by Rony Deleon MD Stent Coronary [employer] 05/12/2018 / / [id number] Description:bare metal stent placed in the right coronary artery [employer]- 016 Implanted:Qty : 1 on 02/26/2016 by Rony Deleon MD Stent Coronary [employer] 04/14/2017 / / [id number] Description:bare metal stent placed in the right coronary artery Promus Premier- 017 Implanted:03/2016 by Arslan Gale MD (Quantity not on file) Stent [employer] 09/28/2017 / / [id number] Description:OM1 Promus Premier- 017 Implanted:03/2016 by Arslan Gale MD (Quantity not on file) Stent [employer] 09/28/2017 / / [id number] Description:RCA Promus Premier- 017 Implanted:03/2016 by Arslan Gale MD (Quantity not on file) Stent [employer] 02/14/2018 / / [id number] Description:rca Stent Synergy Xd 3.0x12mm Evrlms Elut [id number] - [id number] Implanted:Qty : 1 on 05/19/2022 by Conor Grimm MD [facility] Stent Right: Coronary Medine KIMBERLI 12/15/2023 [id number] / / [id number] Stent Dany [place] Temo 3.0x18mm Rx [id number] - [id number] Implanted:Qty : 1 on 12/17/2023 by Conor Grimm MD at [facility] Stent Right: Coronary [employer] [id number] 02/03/2026 [id number] / / [id number] Stent [place] Temo 3.29v57xj Rx [id number] - [id number] Implanted:Qty : 1 on 02/23/2024 by Conor Grimm MD at [facility] Stent N/A: Coronary [employer] [id number] 04/26/2026 [id number] 15UX / / [id number] Procedures Procedure Name Priority Date/Time Associated Diagnosis Comments MOBILE CARDIAC OUTPATIENT TELEMETRY Routine 11/08/2024 5:00 AM CDT Near syncope BRAIN NATRIURETIC PEPTIDE, BNP OR PROBNP Routine 10/19/2024 10:00 AM CDT Benign essential HTN LIPID PANEL Routine 10/19/2024 10:00 AM CDT Coronary artery disease of nikolai artery of nikolai heart with stable angina pectoris COMPREHENSIVE METABOLIC PANEL Routine 10/19/2024 10:00 AM CDT Coronary artery disease of nikolai artery of nikolai heart with stable angina pectoris XR DEXA BONE DENSITY AXIAL 1 OR MORE SITES Routine 06/27/2020 Postmenopausal COLON CANCER SCREEN, STOOL DNA Routine 10/17/2018 12:16 PM CDT Screening for colon cancer from Last 3 Months or Most Recently Relevant to Health Maintenance Results * MOBILE CARDIAC OUTPATIENT TELEMETRY (11/08/2024 5:00 AM CDT) 11/08/2024 5:00 AM CDT Narrative INTERFACE SYSTEM - 11/10/2024 11:06 AM CDT [address] [address] Test Date: 2024-11-08 Pat Name: JERMAINE NGUYEN Department: Room: Gender: Female Garment 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 32 patient triggered; 7 auto triggered PACs were not found during the monitoring period 24,496 PVCs with PVC burden of 1% pt events were sinus and sinus with occ PVCs. Electronically Signed On 11-10-2024 11:06:24 CDT by Steve De Jesus Procedure Note Steve De Jesus MD - 11/10/[address] [address] Test Date: 2024-11-08 Pat Name: JERMAINE NGUYEN Department: Room: Gender: Female Garment Worker: : 1950 Requested By: RICHARD Gonzáles Order Number: [id number] Cee LANDIN: Steve De Jesus Interpretive Statements Patient monitored for 19d 23h 32m 39 events were transmitted. 32 patient triggered; 7 auto triggered PACs were not found during the monitoring period 24,496 PVCs with PVC burden of 1% pt events were sinus and sinus with occ PVCs. Electronically Signed On 11-10-2024 11:06:24 CDT by Steve De Jesus Richard Dueñas MD CARDIAC SERVICES ORDERABLES Fin al Result INTERFACE SYSTEM Refer to clinic/hospital department * (ABNORMAL) BRAIN NATRIURETIC PEPTIDE, BNP OR PROBNP (10/19/2024 10:00 AM CDT) PROBNP, N TERMINAL 209(H) <125 pg/mL [facility] Comment: FASTING:YES FASTING: YES Test Performed at: [facility] [address] [place] [address] Anum Russo MD Blood 10/19/2024 10:0 0 AM CDT 10/19/2024 10:01 AM CDT Richard Dueñas MD CHEMISTRY ORDERABLES Final Resu lt [facility] [phone] [facility] [address] [place] [address] * LIPID PANEL (10/19/2024 10:00 AM CDT) CHOLESTEROL 164 <200 mg/dL [facility] HDL 96 > OR = 50 mg/dL [facility] TRIGLYCERIDE 78 <150 mg/dL [facility] Jose Alejandro LDL CALCULATED 52 mg/dL (calc) [facility] Comment: Reference range: <100 Desirable range <100 mg/dL for primary prevention; <70 mg/dL for patients with CHD or diabetic patients with > or = 2 CHD risk factors. LDL-C is now calculated using the Dipesh-Lang calculation, which is a validated novel method providing better accuracy than the Friedewald equation in the estimation of LDL-C. Dipesh SS et al. JOSÉ LUIS. 2013;310(19): 7344-1526 (http://education.[employer]/faq/QMB790) CHOL/HDL RATIO 1.7 <5.0 (calc) [facility] NON-HDL CHOLESTEROL 68 <130 mg/dL (calc) [facility] Comment: For patients with diabetes plus 1 major ASCVD risk factor, treating to a non-HDL-C goal of <100 mg/dL (LDL-C of <70 mg/dL) is considered a therapeutic option. Test Performed at: [facility] [address] [address] Anum Russo Blood 10/19/2024 10:0 0 AM CDT 10/19/2024 10:01 AM CDT Richard Dueñas MD CHEMISTRY ORDERABLES Final Resu lt [facility] [phone] [facility] [address] [address] * (ABNORMAL) COMPREHENSIVE METABOLIC PANEL (10/19/2024 10:00 AM CDT) GLUCOSE 86 65 - 99 mg/dL [facility] Comment: Fasting reference interval BUN 13 7 - 25 mg/dL [facility] gonz[facility] Jose Alejandro CREATININE 0.83 0.60 - 1.00 mg/dL [facility] GFR 74 > OR = 60 mL/min/1. 73m2 [facility] BUN/CREAT RATIO SEE NOTE: 6 - 22 (calc) [facility] Comment: Not Reported: BUN and Creatinine are within reference range. SODIUM 139 135 - 146 mmol/L [facility] POTASSIUM 4.3 3.5 - 5.3 mmol/L [facility] CHLORIDE 104 98 - 110 mmol/L [facility] CO2 28 20 - 32 mmol/L [facility] CALCIUM 9.3 8.6 - 10.4 mg/dL Donovan [facility] TOTAL PROTEIN 6.0(L) 6.1 - 8.1 g/dL [facility] ALBUMIN 4.1 3.6 - 5.1 g/dL [facility] GLOBULIN 1.9 1.9 - 3.7 g/dL (calc) [facility] ALBUMIN/GLOBULIN RATIO 2.2 1.0 - 2.5 (calc) [facility] BILIRUBIN TOTAL 0.8 0.2 - 1.2 mg/dL [facility] ALKALINE PHOSPHATASE 45 37 - 153 U/L [facility] Jose Alejandro AST 17 10 - 35 U/L [facility] Jose Alejandro ALT 17 6 - 29 U/L [facility] Comment: FASTING:YES FASTING: YES Test Performed at: [facility] [address] [address] [address] Anum Russo Blood 10/19/2024 10:0 0 AM CDT 10/19/2024 10:01 AM CDT Richard Dueñas MD CHEMISTRY ORDERABLES Final Resu lt [facility] [phone] [facility] [address] [place] [address] * XR DEXA BONE DENSITY AXIAL 1 OR MORE SITES (06/27/2020) T-SCORE FEMUR [facility] T-SCORE FEMUR (LEFT) [facility] T-SCORE FEMUR (RIGHT) [facility] T-SCORE FEMUR NECK [facility] T-SCORE FEMORAL NECK (LEFT) [facility] T-SCORE FEMORAL NECK (RIGHT) [facility] T-SCORE HEEL [facility] T-SCORE HEEL (LEFT) [facility] T-SCORE HEEL (RIGHT) [facility] T-SCORE HIP [facility] T-SCORE HIP (LEFT) [facility] T-SCORE HIP (RIGHT) [facility] T-SCORE WRIST [facility] T-SCORE WRIST (LEFT) [facility] T-SCORE WRIST (RIGHT) [facility] T-SCORE SPINE [facility] Anatomical Region Laterality Modality Other Richard Casanova MD DIAGNOSTIC IMAGING ORD ERABLES Final Result * COLON CANCER SCREEN, STOOL DNA (10/17/2018 12:16 PM CDT) COLOGUARD RESULT Negative Not Applicable [employer] [facility] Comment: A negative result indicates [...] screened with both Cologuard and colonoscopy. (Jordan Gonzáles. cathleen al, N Engl J Med 2014;370(14):6416-9994) COLOGUARD RE-SCREENING RECOMMENDATION: Periodic routine colorectal cancer screening is an important part of preventive healthcare for asymptomatic persons at average risk for colorectal cancer. Following a negative Cologuard result, the [place] Cancer Society and U.S. Multi-Society Task Force screening guidelines recommend a Cologuard re-screening interval of 3 years. References: [place] Cancer Society (ACS). Colorectal cancer prevention and early detection. [place], [place]: [place] Cancer Society; [updated 2015Jul 06]. https://www.cancer.org/cancer/hunfw-ujlfxo-eamyiv/ydqwcqnhd-vxpmutydh-qxcblrl/ac s-rec ommendations.html. Accessed November 12, 2017; Brayden DK, Amanda CR, Jacquie HenryK, Colorectal Cancer Screening: Recommendations for Physicians and Patients from the U.S. Multi-Society Task Force on Colorectal Cancer Screening, Am J Gastroenterology 2017; 112:8158-1571. Test Type: Composite algorithmic analysis of stool [...] can be accessed at the following location: www.[employer]/results. Additional description of the Cologuard test process, warnings and precautions can be found at www.cologuardtest.com. Rx Only. Stool STOOL SPECIMEN / Unknown 10/17/2018 12:16 PM CDT 10/18/2018 7:16 PM CDT Richard Casanova MD BODY FLUIDS AND STOOLS Final Result [employer] ENRIQUE RAINEY # [id number] [address] , [address] [place] [address] from Last 3 Months or Most Recently Relevant to Health Maintenance Insurance RX AETNA Medicare Part D AETNA PPO [facility] Advance Directives For more information, please contact: [phone] Documents on File Type Date Recorded Patient Joy Operator Expl anation Advance Directive POA 08/31/2023 3:26 [...] 8:37 AM 11/13/2016 12:58 PM Care Teams Sueding And Buffing Machine Operator Relationship Specialty Start Date End Date Vitaly Manzanares MD [address] [place] [address] PCP - General Family Practice 05/19/22
--- OUTSIDE RECORDS SUMMARY | 2024-12-22 09:35 | XMS_ITS | Encounter Summary ---
Author Organization [facility] Address [address] [place] [address] Care Team Providers Care Energy Conservation Representative Name Role Phone Vitaly Manzanares MD Primary Care Provider [phone] Encounter Details Date Type Department Care Team (Late st Contact Info) Description 11/27/2003 Outpatient Historical [facility] Internal Medicine [place] [address] [place] [address] Gadiel Christensen MD [address] [place] [id number] Social History Tobacco Use Types Packs/Day Years Used Date Smoking Tobacco: Never Assessed Comments Unknown Sex and Gender Information Value Date Recorded Sex Assigned at Not on file 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 Gender Identity Not on file Sexual Orientation Not on file documented as of this encounter Plan of Treatment Upcoming Encounters Date Type Department Care Team (Latest Contact Info) Description 12/27/2024 10:01 AM CDT Hospital Encounter [facility] Counselor [address] [place] [address] Conor Grimm MD [address] [place] [address] [address] [place] [address] Atherosclerosis of [place] coronary artery of [place] heart, unspecified whether angina present 12/27/2024 10:01 AM CDT - 12/27/2024 10:54 AM CDT Surgery [facility] Counselor [address] [place] [address] Conor Grimm MD [address] [place] [address] [address] [place] [address] Left heart cath documented as of this encounter Visit Diagnoses Not on filedocumented in this encounter Care Teams Energy Conservation Representative Relationship Specialty Start Date End Date Vitaly Manzanares MD [address] [place] [address] PCP - General Family Practice 05/19/22 documented as of this encounter
--- OUTSIDE RECORDS SUMMARY | 2024-12-22 09:35 | XMS_ITS | Encounter Summary ---
Author Organization [facility] Address 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 Gender Identity Not on file Sexual Orientation Not on file documented as of this encounter Plan of Treatment Upcoming Encounters Date Type Department Care Team (Latest Contact Info) Description 12/27/2024 10:01 AM CDT Hospital Encounter [facility] Enginehouse Brakeman [address] [place] [address] Conor Grimm MD [address] [place] [address] 2014 [place] [address] Atherosclerosis of [place] coronary artery of [place] heart, unspecified whether angina present 12/27/2024 10:01 AM CDT - 12/27/2024 10:54 AM CDT Surgery [facility] Enginehouse Brakeman [address] [place] [address] Conor Grimm MD [address] [place] [address] 2014 [place] [address] Left heart cath documented as of this encounter Visit Diagnoses Diagnosis Nonspecific (abnormal) findings on radiological and other examination of skull and head- Primary Atherosclerosis of [place] coronary artery of [place] heart, unspecified whether angina present Chronic systolic (congestive) heart failure Coronary artery disease involving [place] coronary artery of [place] heart, unspecified whether angina present Atherosclerosis of [place] coronary artery of [place] heart, unspecified whether angina present Chronic systolic (congestive) heart failure Coronary artery disease involving [place] coronary artery of [place] heart, unspecified whether angina present documented in this encounter Care Teams Paper Sheeter Relationship Specialty Start Date End Date Vitaly Manzanares MD [address] [place] [address] PCP - General Family Practice 05/19/22 documented as of this encounter
--- OUTSIDE RECORDS SUMMARY | 2024-12-22 09:35 | XMS_ITS | Encounter Summary ---
Author Organization [facility] Address [address] [place] [address] Care Team Providers Care Fish Hatchery Manager Name Role Phone Vitaly Manzanares MD Primary Care Provider [phone] Encounter Details Date Type Department Care Team (Late st Contact Info) Description 12/28/2003 Outpatient Historical [facility] Gadiel Bardales MD [address] [place] [phone] SCREENING MAMM-MAILG NEOPL-OTHER (Primary Dx) Social History Tobacco Use Types Packs/Day Years Used Date Smoking Tobacco: Never Assessed Comments Unknown Sex and Gender Information Value Date Recorded Sex Assigned at Not on file Legal Sex Female 5:01 AM HYPO DIPPER Gender Identity Not on file Sexual Orientation Not on file documented as of this encounter Plan of Treatment Upcoming Encounters Date Type Department Care Team (Latest Contact Info) Description 12/27/2024 10:01 AM CDT Hospital Encounter [facility] Busher Helper [address] [place] [address] Conor Grimm MD [address] [place] [address] 2014 [place] [address] Atherosclerosis of [place] coronary artery of [place] heart, unspecified whether angina present 12/27/2024 10:01 AM CDT - 12/27/2024 10:54 AM CDT Surgery [facility] Busher Helper [address] [place] [address] Conor Grimm MD [address] [place] [address] 2014 [place] [address] Left heart cath documented as of this encounter Visit Diagnoses Diagnosis Other screening mammogram- Primary Atherosclerosis of [place] coronary artery of [place] heart, unspecified whether angina present Chronic systolic (congestive) heart failure Coronary artery disease involving [place] coronary artery of [place] heart, unspecified whether angina present Atherosclerosis of [place] coronary artery of [place] heart, unspecified whether angina present Chronic systolic (congestive) heart failure Coronary artery disease involving [place] coronary artery of [place] heart, unspecified whether angina present documented in this encounter Care Teams Fish Hatchery Manager Relationship Specialty Start Date End Date Vitaly Manzanares MD [address] [place] [address] PCP - General Family Practice 05/19/22 documented as of this encounter
--- OUTSIDE RECORDS SUMMARY | 2024-12-22 09:35 | XMS_ITS | Encounter Summary ---
Author Organization [facility] Address [address] [place] [address] Care Team Providers Care Chair Finisher Name Role Phone Vitaly Manzanares MD Primary Care Provider [phone] Encounter Details Date Type Department Care Team (Latest Contact Info) Description 10/20/2024 Results Follow-Up [facility] At [place] [address] [address] [facility] [address] [place] [address] Jayshree Dodd RN COMPREHENSIVE METABOLIC PANEL, LIPID PANEL, BRAIN NATRIURETIC PEPTIDE, BNP OR PROBNP, MOBILE CARDIAC OUTPATIENT TELEMETRY Social History Tobacco Use Types Packs/Day Years [...] on file Legal Sex Female 5:01 AM CHILD ADOLESCENT CARE Gender Identity Not on file Sexual Orientation Not on file Occupation Industry Job Start Date Job End Date Not on file Not on file Not on file Not on file documented as of this encounter Plan of Treatment Upcoming Encounters Date Type Department Care Team (Latest Contact Info) Description 12/27/2024 10:01 AM CDT Hospital Encounter [facility] Proposal Analyst [address] [place] [address] Conor Grimm MD [address] [place] [address] 2014 [place] [address] Atherosclerosis of [place] coronary artery of [place] heart, unspecified whether angina present 12/27/2024 10:01 AM CDT - 12/27/2024 10:54 AM CDT Surgery [facility] Proposal Analyst [address] [place] [address] Conor Grimm MD [address] [place] [address] [address] [place], [place] [id number] Left heart cath documented as of this encounter Visit Diagnoses Not on filedocumented in this encounter Care Teams Chair Finisher Relationship Specialty Start Date End Date Vitaly Manzanares MD [address] [place] [address] PCP - General Family Practice 05/19/22 documented as of this encounter
--- OUTSIDE RECORDS SUMMARY | 2024-12-22 09:35 | XMS_ITS | Encounter Summary ---
Author Organization [facility] Address [address] [place] [address] Care Team Providers Care Automated Process Operator Name Role Phone Vitaly Manzanares MD Primary Care Provider [phone] Encounter Details Date Type Department Care Team (Late st Contact Info) Description 10/30/2003 Outpatient Historical [facility] Internal Medicine [place] [address] [place] [address] Gadiel Christensen MD [address] [place] [phone] Social History Tobacco Use Types Packs/Day Years Used Date Smoking Tobacco: Never Assessed Comments Unknown Sex and Gender Information Value Date Recorded Sex Assigned at Not on file Legal Sex Female 5:01 AM INSURANCE CLAIM APPROVER Gender Identity Not on file Sexual Orientation Not on file documented as of this encounter Plan of Treatment Upcoming Encounters Date Type Department Care Team (Latest Contact Info) Description 12/27/2024 10:01 AM CDT Hospital Encounter [facility] Kier Pleater [address] [place] [address] Conor Grimm MD [address] [place] [address] [address] [place] [address] Atherosclerosis of [place] coronary artery of [place] heart, unspecified whether angina present 12/27/2024 10:01 AM CDT - 12/27/2024 10:54 AM CDT Surgery [facility] Kier Pleater [address] [place] [address] Conor Grimm MD [address] [place] [address] 2015 [place] [address] Left heart cath documented as of this encounter Visit Diagnoses Not on filedocumented in this encounter Care Teams Automated Process Operator Relationship Specialty Start Date End Date Viatly Manzanares MD [address] [place] [address] PCP - General Family Practice 05/19/22 documented as of this encounter
--- OUTSIDE RECORDS SUMMARY | 2024-12-22 09:35 | XMS_ITS | Encounter Summary ---
Author Organization [facility] Address [address] [place] [address] Care Team Providers Care Roll Forming Machine Operator Name Role Phone Vitaly Manzanares MD Primary Care Provider [phone] Encounter Details Date Type Department Care Team (Late st Contact Info) Description 05/05/2004 Outpatient Historical [facility] Internal Medicine [place] [address] [place] [address] Gadiel Christensen MD [address] [place] [phone] Social History Tobacco Use Types Packs/Day Years Used Date Smoking Tobacco: Never Assessed Comments Unknown Sex and Gender Information Value Date Recorded Sex Assigned at Not on file Legal Sex Female 5:01 AM COMPASS OPERATOR Gender Identity Not on file Sexual Orientation Not on file documented as of this encounter Plan of Treatment Upcoming Encounters Date Type Department Care Team (Latest Contact Info) Description 12/27/2024 10:01 AM CDT Hospital Encounter [facility] Explosive Ordnance Handler [address] [place] [address] Conor Grimm MD [address] [place] [address] [address] [place] [address] Atherosclerosis of [place] coronary artery of [place] heart, unspecified whether angina present 12/27/2024 10:01 AM CDT - 12/27/2024 10:54 AM CDT Surgery [facility] Explosive Ordnance Handler [address] [place] [address] Conor Grimm MD [address] [place] [address] 2015 [place] [address] Left heart cath documented as of this encounter Visit Diagnoses Not on filedocumented in this encounter Care Teams Roll Forming Machine Operator Relationship Specialty Start Date End Date Vitaly Manzanares MD [address] [place] [address] PCP - General Family Practice 05/19/22 documented as of this encounter
--- OUTSIDE RECORDS SUMMARY | 2024-12-22 09:35 | XMS_ITS | Encounter Summary ---
Author Organization [facility] Address [address] [place] [address] Care Team Providers Care A P Mechanic Name Role Phone Vitaly Manzanares MD Primary Care Provider [phone] Encounter Details Date Type Department Care Team (Late st Contact Info) Description 04/19/2001 Outpatient Historical [facility] Internal Medicine [place] [address] [place] [address] Gadiel Christensen MD [address] [place] [phone] Social History Tobacco Use Types Packs/Day Years Used Date Smoking Tobacco: Never Assessed Comments Unknown Sex and Gender Information Value Date Recorded Sex Assigned at Not on file Legal Sex Female 5:01 AM GOLD LEAF ROLLER Gender Identity Not on file Sexual Orientation Not on file documented as of this encounter Plan of Treatment Upcoming Encounters Date Type Department Care Team (Latest Contact Info) Description 12/27/2024 10:01 AM CDT Hospital Encounter [facility] Licensed Midwife [address] [place] [address] Conor Grmim MD [address] [place] [address] [address] [place] [address] Atherosclerosis of [place] coronary artery of [place] heart, unspecified whether angina present 12/27/2024 10:01 AM CDT - 12/27/2024 10:54 AM CDT Surgery [facility] Licensed Midwife [address] [place] [address] Conor Grimm MD [address] [place] [address] 2015 [place] [address] Left heart cath documented as of this encounter Visit Diagnoses Not on filedocumented in this encounter Care Teams A P Mechanic Relationship Specialty Start Date End Date Vitaly Manzanares MD [address] [place] [address] PCP - General Family Practice 05/19/22 documented as of this encounter
--- OUTSIDE RECORDS SUMMARY | 2024-12-22 09:35 | XMS_ITS | Encounter Summary ---
Author Organization [facility] Address [address] [place] [address] Care Team Providers Care Renewable Energy Broker Name Role Phone Vitaly Manzanares MD Primary Care Provider [phone] Encounter Details Date Type Department Care Team (Late st Contact Info) Description 06/22/2005 Outpatient Historical [facility] Internal Medicine [place] [address] [place] [address] Gadiel Christensen MD [address] [place] [phone] Social History Tobacco Use Types Packs/Day Years Used Date Smoking Tobacco: Never Assessed Comments Unknown Sex and Gender Information Value Date Recorded Sex Assigned at Not on file Legal Sex Female 5:01 AM NEWS INTERNSHIP Gender Identity Not on file Sexual Orientation Not on file documented as of this encounter Plan of Treatment Upcoming Encounters Date Type Department Care Team (Latest Contact Info) Description 12/27/2024 10:01 AM CDT Hospital Encounter [facility] Peanut Picker [address] [place] [address] Conor Grimm MD [address] [place] [address] [address] [place] [address] Atherosclerosis of [place] coronary artery of [place] heart, unspecified whether angina present 12/27/2024 10:01 AM CDT - 12/27/2024 10:54 AM CDT Surgery [facility] Peanut Picker [address] [place] [address] Conor Grimm MD [address] [place] [address] 2015 [place] [address] Left heart cath documented as of this encounter Visit Diagnoses Not on filedocumented in this encounter Care Teams Renewable Energy Broker Relationship Specialty Start Date End Date Vitaly Manzanares MD [address] [place] [address] PCP - General Family Practice 05/19/22 documented as of this encounter
--- OUTSIDE RECORDS SUMMARY | 2024-12-22 09:35 | XMS_ITS | Encounter Summary ---
Author Organization [facility] Address 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); Chronic systolic congestive heart failure; Atherosclerosis of [place] coronary artery of [place] heart without angina pectoris Social History Tobacco Use Types Packs/Day Years [...] on file Legal Sex Female 5:01 AM EYE PHYSICIAN Gender Identity Not on file Sexual Orientation Not on file Occupation Industry Job Start Date Job End Date Not on file Not on file Not on file Not on file documented as of this encounter Plan of Treatment Upcoming Encounters Date Type Department Care Team (Latest Contact Info) Description 12/27/2024 10:01 AM CDT Hospital Encounter [facility] Charter Boat Captain [address] [place] [address] Conor Grimm MD [address] [facility] [address] [place], [place] [id number] Atherosclerosis of [place] coronary artery of [place] heart, unspecified whether angina present 12/27/2024 10:01 AM CDT - 12/27/2024 10:54 AM CDT Surgery [facility] Charter Boat Captain [address] [place] [address] Conor Grimm MD [address] [facility] [address] [place], [place] [id number] Left heart cath documented as of this encounter Visit Diagnoses Diagnosis 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- Primary Chronic systolic congestive heart failure Chronic systolic heart failure Atherosclerosis of [place] coronary artery of [place] heart without angina pectoris Atherosclerosis of [place] coronary artery of [place] heart, unspecified whether angina present Chronic systolic (congestive) heart failure Coronary artery disease involving [place] coronary artery of [place] heart, unspecified whether angina present Atherosclerosis of [place] coronary artery of [place] heart, unspecified whether angina present Chronic systolic (congestive) heart failure Coronary artery disease involving [place] coronary artery of [place] heart, unspecified whether angina present documented in this encounter Care Teams Carpenter Helper Hardwood Flooring Relationship Specialty Start Date End Date Vitaly Manzanares MD [address] [place] [address] PCP - General Family Practice 05/19/22 documented as of this encounter
--- OUTSIDE RECORDS SUMMARY | 2024-12-22 09:35 | XMS_ITS | Encounter Summary ---
Author Organization [facility] Address [address] [place] [address] Care Team Providers Care Finished Carpet Inspector Name Role Phone Vitaly Manzanares MD Primary Care Provider [phone] Encounter Details Date Type Department Care Team (Latest Contact Info) Description 10/02/2005 Outpatient Historical [facility] Gadiel Christensen MD [address] [place] [phone] Hypopotassemia (Primary Dx) Social History Tobacco Use Types Packs/Day Years Used Date Smoking Tobacco: Never Assessed Comments Unknown Sex and Gender Information Value Date Recorded Sex Assigned at Not on file Legal Sex Female 5:01 AM AIRBORNE SENSOR SPECIALIST Gender Identity Not on file Sexual Orientation Not on file documented as of this encounter Plan of Treatment Upcoming Encounters Date Type Department Care Team (Latest Contact Info) Description 12/27/2024 10:01 AM CDT Hospital Encounter [facility] Dietary Internship [address] [place] [address] Conor Grimm MD [address] [place] [address] 2014 [place], [place] [id number] Atherosclerosis of [place] coronary artery of [place] heart, unspecified whether angina present 12/27/2024 10:01 AM CDT - 12/27/2024 10:54 AM CDT Surgery [facility] Dietary Internship [address] [place] [address] Conor Grimm MD [address] [place] [address] 2014 [place] [address] Left heart cath documented as of this encounter Procedures Procedure [...] INTERFACE SYSTEM Comment: Lab test performed by: [employer] [address] DEMAR BUCK MD 10/02/2005 3:26 PM CDT Gadiel Christensen MD CHEMISTRY ORDERABLES COM Final Result Performing Organization Address [facility] de Phone Number INTERFACE SYSTEM Refer to clinic/hospital department * MAGNESIUM LEVEL (10/02/2005 3:26 PM CDT) MAGNESIUM 1.7 1.5 - 2.5 mg/dL INTERFACE SYSTEM 10/02/2005 3:26 PM CDT Gadiel Christensen MD CHEMISTRY ORDERABLES Final Res ult Performing Organization Address [facility] de Phone Number INTERFACE SYSTEM Refer [...] this encounter Visit Diagnoses Diagnosis Hypopotassemia- Primary Atherosclerosis of [place] coronary artery of [place] heart, unspecified whether angina present Chronic systolic (congestive) heart failure Coronary artery disease involving [place] coronary artery of [place] heart, unspecified whether angina present Atherosclerosis of [place] coronary artery of [place] heart, unspecified whether angina present Chronic systolic (congestive) heart failure Coronary artery disease involving [place] coronary artery of [place] heart, unspecified whether angina present documented in this encounter Care Teams Finished Carpet Inspector Relationship Specialty Start Date End Date Vitaly Manzanares MD [address] [place] [address] PCP - General Family Practice 05/19/22 documented as of this encounter
--- OUTSIDE RECORDS SUMMARY | 2024-12-22 09:35 | XMS_ITS | Encounter Summary ---
Author Organization [facility] Address [address] [place] [address] Care Team Providers Care Shop Helper Name Role Phone Vitaly Manzanares MD Primary Care Provider [phone] Encounter Details Date Type Department Care Team (Late st Contact Info) Description 04/04/2004 Outpatient Historical [facility] Gadiel Christensen MD [address] [place] [id number] DISC DIS NEC/NOS-UNSPEC (Primary Dx) Social History Tobacco Use Types Packs/Day Years Used Date Smoking Tobacco: Never Assessed Comments Unknown Sex and Gender Information Value Date Recorded Sex Assigned at Not on file Legal Sex Female 5:01 AM DAIRY TECHNICIAN Gender Identity Not on file Sexual Orientation Not on file documented as of this encounter Plan of Treatment Upcoming Encounters Date Type Department Care Team (Latest Contact Info) Description 12/27/2024 10:01 AM CDT Hospital Encounter [facility] [address] [place] [address] Conor Grimm MD [address] [place] [address] 2014 [place] [address] Atherosclerosis of [place] coronary artery of [place] heart, unspecified whether angina present 12/27/2024 10:01 AM CDT - 12/27/2024 10:54 AM CDT Surgery [facility] [address] [place] [address] Conor Grimm MD [address] [place] [address] 2014 [place] [address] Left heart cath documented as of this encounter Visit Diagnoses Diagnosis Other and unspecified disc disorder of unspecified region- Primary Atherosclerosis of [place] coronary artery of [place] heart, unspecified whether angina present Chronic systolic (congestive) heart failure Coronary artery disease involving [place] coronary artery of [place] heart, unspecified whether angina present Atherosclerosis of [place] coronary artery of [place] heart, unspecified whether angina present Chronic systolic (congestive) heart failure Coronary artery disease involving [place] coronary artery of [place] heart, unspecified whether angina present documented in this encounter Care Teams Shop Helper Relationship Specialty Start Date End Date Vitaly Manzanares MD [address] [place] [address] PCP - General Family Practice 05/19/22 documented as of this encounter
--- OUTSIDE RECORDS SUMMARY | 2024-12-22 09:35 | XMS_ITS | Encounter Summary ---
Author Organization [facility] Address [address] [place] [address] Care Team Providers Care Acid Extractor Name Role Phone Vitaly Manzanares MD Primary Care Provider [phone] Encounter Details Date Type Department Care Team (Late st Contact Info) Description 06/04/2005 Outpatient Historical [facility] [place] [address] [place] [address] Gadiel Christensen MD [address] [place] [id number] Social History Tobacco Use Types Packs/Day Years Used Date Smoking Tobacco: Never Assessed Comments Unknown Sex and Gender Information Value Date Recorded Sex Assigned at Not on file Legal Sex Female 5:01 AM EXECUTIVE ADMINISTRATIVE ASSISTANT Gender Identity Not on file Sexual Orientation Not on file documented as of this encounter Plan of Treatment Upcoming Encounters Date Type Department Care Team (Latest Contact Info) Description 12/27/2024 10:01 AM CDT Hospital Encounter [facility] Banquet Food Server [address] [place] [address] Conor Grimm MD [address] [place] [address] [address] [place] [address] Atherosclerosis of [place] coronary artery of [place] heart, unspecified whether angina present 12/27/2024 10:01 AM CDT - 12/27/2024 10:54 AM CDT Surgery [facility] Banquet Food Server [address] [place] [address] Conor Grimm MD [address] [place] [address] 2015 [place] [address] Left heart cath documented as of this encounter Visit Diagnoses Not on filedocumented in this encounter Care Teams Acid Extractor Relationship Specialty Start Date End Date Vitaly Manzanares MD [address] [place] [address] PCP - General Family Practice 05/19/22 documented as of this encounter
--- OUTSIDE RECORDS SUMMARY | 2024-12-22 09:35 | XMS_ITS | Encounter Summary ---
Author Organization [facility] Address [address] [place] [address] Care Team Providers Care Administration Manager Name Role Phone Vitaly Manzanares MD Primary Care Provider [phone] Encounter Details Date Type Department Care Team (Late st Contact Info) Description 03/09/2006 Outpatient Historical [facility] Gadiel Christensen MD [address] [place] [id number] Essential Hypertension, Benign (Primary Dx) Social History Tobacco Use Types Packs/Day Years Used Date Smoking Tobacco: Never Assessed Comments Unknown Sex and Gender Information Value Date Recorded Sex Assigned at Not on file Legal Sex Female 5:01 AM CLOTH FINISHING RANGE OPERATOR CHIEF Gender Identity Not on file Sexual Orientation Not on file documented as of this encounter Plan of Treatment Upcoming Encounters Date Type Department Care Team (Latest Contact Info) Description 12/27/2024 10:01 AM CDT Hospital Encounter [facility] Guard Manager [address] [place] [address] Conor Grimm MD [address] [place] [address] 2014 [place] [address] Atherosclerosis of [place] coronary artery of [place] heart, unspecified whether angina present 12/27/2024 10:01 AM CDT - 12/27/2024 10:54 AM CDT Surgery [facility] Guard Manager [address] [place] [address] Conor Grimm MD [address] [place] [address] 2014 [place] [address] Left heart cath documented as of this encounter Procedures Procedure Name Priority Date/Time Associated Diagnosis Comments TSH REFLEXIVE Routine 03/09/2006 9:00 AM CLOTH FINISHING RANGE OPERATOR CHIEF CBC WITH DIFFERENTIAL Routine 03/09/2006 9:00 AM CLOTH FINISHING RANGE OPERATOR CHIEF CBC WITH DIFFERENTIAL Routine 03/09/2006 9:00 AM CLOTH FINISHING RANGE OPERATOR CHIEF CANCER ANTIGEN 125 Routine 03/09/2006 9: 00 AM CLOTH FINISHING RANGE OPERATOR CHIEF MAGNESIUM LEVEL Routine 03/09/2006 9:00 AM CLOTH FINISHING RANGE OPERATOR CHIEF LIPID PANEL Routine 03/09/2006 9:00 AM CLOTH FINISHING RANGE OPERATOR CHIEF COMPREHENSIVE METABOLIC PANEL Routine 03/09/2006 9:00 AM CLOTH FINISHING RANGE OPERATOR CHIEF documented in this encounter Results * CBC WITH DIFFERENTIAL (03/09/2006 9:00 AM CLOTH FINISHING RANGE OPERATOR CHIEF) NEUTROPHILS 54 45 - 70 % INTERFAC [...] 0.20 K/uL INTERFACE SYSTEM 03/09/2006 9:00 AM CLOTH FINISHING RANGE OPERATOR CHIEF Gadiel Christensen MD HEMATOLOGY ORDERABLES Final Re sult INTERFACE SYSTEM Refer to clinic/hospital department * (ABNORMAL) CBC WITH DIFFERENTIAL (03/09/2006 9:00 AM CLOTH FINISHING RANGE OPERATOR CHIEF) WBC 5.4 4.0 - 9.8 K/uL INTERFACE [...] 12.4 fL INTERFACE SYSTEM 03/09/2006 9:00 AM CLOTH FINISHING RANGE OPERATOR CHIEF Gadiel Christensen MD HEMATOLOGY ORDERABLES Final Re sult Performing Organization Address [facility] Phone Number INTERFACE SYSTEM Refer to clinic/hospital department * TSH REFLEXIVE (03/09/2006 9:00 AM CLOTH FINISHING RANGE OPERATOR CHIEF) TSH 1.82 0.27 - 4.20 uU/mL INTERFACE SYSTEM 03/09/2006 9:00 AM CLOTH FINISHING RANGE OPERATOR CHIEF Gadiel Christensen MD CHEMISTRY ORDERABLES Final Res ult Performing Organization Address [facility] Phone Number INTERFACE SYSTEM Refer to clinic/hospital department * MAGNESIUM LEVEL (03/09/2006 9:00 AM CLOTH FINISHING RANGE OPERATOR CHIEF) MAGNESIUM 1.8 1.5 - 2.5 mg/dL INTERFACE SYSTEM 03/09/2006 9:00 AM CLOTH FINISHING RANGE OPERATOR CHIEF Gadiel Christensen MD CHEMISTRY ORDERABLES Final Res ult Performing Organization Address [facility] Phone Number INTERFACE SYSTEM Refer to clinic/hospital department * CANCER ANTIGEN 125 (03/09/2006 9:00 AM CLOTH FINISHING RANGE OPERATOR CHIEF) CA 125 8 <=34 U/mL INTERFACE SYSTEM [...] a cancer screening test. 03/09/2006 9:00 AM CLOTH FINISHING RANGE OPERATOR CHIEF Gadiel Christensen MD CHEMISTRY ORDERABLES Final Res ult Performing Organization Address [facility] Phone Number INTERFACE SYSTEM Refer to clinic/hospital department * (ABNORMAL) LIPID PANEL (03/09/2006 9:00 AM CLOTH FINISHING RANGE OPERATOR CHIEF) CHOLESTEROL 223(H) 100 - 199 mg/dL INTERFACE [...] available on the [facility] Intranet at: [email or web address] Select: Lab Policies and Procedures Select: Reference Ranges - Lipids 03/09/2006 9:00 AM CLOTH FINISHING RANGE OPERATOR CHIEF Gadiel Christensen MD CHEMISTRY ORDERABLES Final Res ult Performing Organization Address [facility] Phone Number INTERFACE SYSTEM Refer to clinic/hospital department * COMPREHENSIVE METABOLIC PANEL (03/09/2006 9:00 AM CLOTH FINISHING RANGE OPERATOR CHIEF) GLUCOSE 93 65 - 99 mg/dL INTERFACE [...] available on the [facility] [employer]SS[employer] Medical Nanotechnologyet at: [email or web address] Select: Lab Policies and Procedures Select: Reference Ranges - GFR 03/09/2006 9:00 AM CLOTH FINISHING RANGE OPERATOR CHIEF Gadiel Christensen MD CHEMISTRY ORDERABLES Final Res ult INTERFACE SYSTEM Refer to clinic/hospital department documented in this encounter Visit Diagnoses Diagnosis Essential hypertension, benign- Primary Atherosclerosis of [place] coronary artery of [place] heart, unspecified whether angina present Chronic systolic (congestive) heart failure Coronary artery disease involving [place] coronary artery of [place] heart, unspecified whether angina present Atherosclerosis of [place] coronary artery of [place] heart, unspecified whether angina present Chronic systolic (congestive) heart failure Coronary artery disease involving [place] coronary artery of [place] heart, unspecified whether angina present documented in this encounter Care Teams Administration Manager Relationship Specialty Start Date End Date Vitaly Manzanares MD [address] [place] [address] PCP - General Family Practice 05/19/22 documented as of this encounter
--- OUTSIDE RECORDS SUMMARY | 2024-12-22 09:35 | XMS_ITS | Encounter Summary ---
Author Organization [facility] Address [address] [place] [address] Care Team Providers Care Crab Steamer Name Role Phone Vitaly Manzanares MD Primary Care Provider [phone] Encounter Details Date Type Department Care Team (Late st Contact Info) Description 12/21/2004 Outpatient Historical [facility] Gadiel Christensen MD [address] [place] [phone] Social History Tobacco Use Types Packs/Day Years Used Date Smoking Tobacco: Never Assessed Comments Unknown Sex and Gender Information Value Date Recorded Sex Assigned at Not on file Legal Sex Female 5:01 AM PURCHASING ASSOCIATE Gender Identity Not on file Sexual Orientation Not on file documented as of this encounter Plan of Treatment Upcoming Encounters Date Type Department Care Team (Latest Contact Info) Description 12/27/2024 10:01 AM CDT Hospital Encounter [facility] Supervisor Cd Area [address] [place] [address] Conor Grimm MD [address] [place] [address] 2014 [place], [place] [id number] Atherosclerosis of [place] coronary artery of [place] heart, unspecified whether angina present 12/27/2024 10:01 AM CDT - 12/27/2024 10:54 AM CDT Surgery [facility] Supervisor Cd Area [address] [place] [address] Conor Grimm MD [address] [place] [address] 2014 [place] [address] Left heart cath documented as of this encounter Visit Diagnoses Not on filedocumented in this encounter Care Teams Crab Steamer Relationship Specialty Start Date End Date Vitaly Manzanares MD [address] [place] [address] PCP - General Family Practice 05/19/22 documented as of this encounter
--- OUTSIDE RECORDS SUMMARY | 2024-12-22 09:35 | XMS_ITS | Encounter Summary ---
Author Organization [facility] Address [address] [place] [address] Care Team Providers Care Branch Library Clerk Name Role Phone Vitaly Manzanares MD Primary Care Provider [phone] Encounter Details Date Type Department Care Team (Late st Contact Info) Description 11/19/2004 Outpatient Historical [facility] Gadiel Christensen MD [address] [place] [phone] CERVICALGIA (Primary Dx) Social History Tobacco Use Types Packs/Day Years Used Date Smoking Tobacco: Never Assessed Comments Unknown Sex and Gender Information Value Date Recorded Sex Assigned at Not on file Legal Sex Female 5:01 AM CHIEF SALES OFFICER Gender Identity Not on file Sexual Orientation Not on file documented as of this encounter Plan of Treatment Upcoming Encounters Date Type Department Care Team (Latest Contact Info) Description 12/27/2024 10:01 AM CDT Hospital Encounter [facility] Freezer Tunnel Operator [address] [place] [address] Conor Grimm MD [address] [place] [address] 2014 [place], [place] [id number] Atherosclerosis of [place] coronary artery of [place] heart, unspecified whether angina present 12/27/2024 10:01 AM CDT - 12/27/2024 10:54 AM CDT Surgery [facility] Freezer Tunnel Operator [address] [place] [address] Conor Grimm MD [address] [place] [address] 2014 [place] [address] Left heart cath documented as of this encounter Visit Diagnoses Diagnosis Cervicalgia- Primary Atherosclerosis of [place] coronary artery of [place] heart, unspecified whether angina present Chronic systolic (congestive) heart failure Coronary artery disease involving [place] coronary artery of [place] heart, unspecified whether angina present Atherosclerosis of [place] coronary artery of [place] heart, unspecified whether angina present Chronic systolic (congestive) heart failure Coronary artery disease involving [place] coronary artery of [place] heart, unspecified whether angina present documented in this encounter Care Teams Branch Library Clerk Relationship Specialty Start Date End Date Vitaly Manzanares MD [address] [place] [address] PCP - General Family Practice 05/19/22 documented as of this encounter
--- OUTSIDE RECORDS SUMMARY | 2024-12-22 09:35 | XMS_ITS | Encounter Summary ---
Author Organization [facility] Address [address] [place] [address] Care Team Providers Care Collision Estimator Name Role Phone Vitaly Manzanares MD Primary Care Provider [phone] Encounter Details Date Type Department Care Team (Late st Contact Info) Description 02/13/2005 Outpatient Historical [facility] Internal Medicine [place] [address] [place] [address] Gadiel Christensen MD [address] [place] [phone] Social History Tobacco Use Types Packs/Day Years Used Date Smoking Tobacco: Never Assessed Comments Unknown Sex and Gender Information Value Date Recorded Sex Assigned at Not on file Legal Sex Female 5:01 AM SENIOR ACCOUNT EXECUTIVE Gender Identity Not on file Sexual Orientation Not on file documented as of this encounter Plan of Treatment Upcoming Encounters Date Type Department Care Team (Latest Contact Info) Description 12/27/2024 10:01 AM CDT Hospital Encounter [facility] Water Valve Repairer [address] [place] [address] Conor Grimm MD [address] [place] [address] [address] [place] [address] Atherosclerosis of [place] coronary artery of [place] heart, unspecified whether angina present 12/27/2024 10:01 AM CDT - 12/27/2024 10:54 AM CDT Surgery [facility] Water Valve Repairer [address] [place] [address] Conor Grimm MD [address] [place] [address] 2015 [place] [address] Left heart cath documented as of this encounter Visit Diagnoses Not on filedocumented in this encounter Care Teams Collision Estimator Relationship Specialty Start Date End Date Vitaly Manzanares MD [address] [place] [address] PCP - General Family Practice 05/19/22 documented as of this encounter
--- OUTSIDE RECORDS SUMMARY | 2024-12-22 09:35 | XMS_ITS | Encounter Summary ---
Author Organization [facility] Address [address] [place] [address] Care Team Providers Care Supervisor Dyer Name Role Phone Vitaly Manzanares MD Primary Care Provider [phone] Encounter Details Date Type Department Care Team (Late st Contact Info) Description 07/09/2004 Outpatient Historical [facility] Gadiel Christensen MD [address] [place] [phone] Social History Tobacco Use Types Packs/Day Years Used Date Smoking Tobacco: Never Assessed Comments Unknown Sex and Gender Information Value Date Recorded Sex Assigned at Not on file Legal Sex Female 5:01 AM FLEX O WRITER OPERATOR Gender Identity Not on file Sexual Orientation Not on file documented as of this encounter Plan of Treatment Upcoming Encounters Date Type Department Care Team (Latest Contact Info) Description 12/27/2024 10:01 AM CDT Hospital Encounter [facility] First Dyer [address] [place] [address] Conor Grimm MD [address] [place] [address] 2014 [place], [place] [id number] Atherosclerosis of [place] coronary artery of [place] heart, unspecified whether angina present 12/27/2024 10:01 AM CDT - 12/27/2024 10:54 AM CDT Surgery [facility] First [facility] [address] [place] [address] Conor Grimm MD [address] [place] [address] 2014 [place] [address] Left heart cath documented as of this encounter Visit Diagnoses Not on filedocumented in this encounter Care Teams Supervisor Dyer Relationship Specialty Start Date End Date Vitaly Manzanares MD [address] [place] [address] PCP - General Family Practice 05/19/22 documented as of this encounter
--- OUTSIDE RECORDS SUMMARY | 2024-12-22 09:35 | XMS_ITS | Encounter Summary ---
Author Organization [facility] Address [address] [place] [address] Care Team Providers Care Cinder Crane Operator Name Role Phone Vitaly Manzanares MD Primary Care Provider [phone] Encounter Details Date Type Department Care Team (Latest Contact Info) Description 05/06/2004 Outpatient Historical [facility] Gadiel Christensen MD [address] [place] [phone] DISC DISPLACEMENT NOS (Primary Dx) Social History Tobacco Use Types Packs/Day Years Used Date Smoking Tobacco: Never Assessed Comments Unknown Sex and Gender Information Value Date Recorded Sex Assigned at Not on file Legal Sex Female 5:01 AM COMP FIELD CASE MANAGER Gender Identity Not on file Sexual Orientation Not on file documented as of this encounter Plan of Treatment Upcoming Encounters Date Type Department Care Team (Latest Contact Info) Description 12/27/2024 10:01 AM CDT Hospital Encounter [facility] Day Care Director [address] [place] [address] Conor Grimm MD [address] [place] [address] 2014 [place], [place] [id number] Atherosclerosis of [place] coronary artery of [place] heart, unspecified whether angina present 12/27/2024 10:01 AM CDT - 12/27/2024 10:[address] 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 Atherosclerosis of [place] coronary artery of [place] heart, unspecified whether angina present Chronic systolic (congestive) heart failure Coronary artery disease involving [place] coronary artery of [place] heart, unspecified whether angina present Atherosclerosis of [place] coronary artery of [place] heart, unspecified whether angina present Chronic systolic (congestive) heart failure Coronary artery disease involving [place] coronary artery of [place] heart, unspecified whether angina present documented in this encounter Care Teams Cinder Crane Operator Relationship Specialty Start Date End Date Vitaly Manzanares MD [address] [place] [address] PCP - General Family Practice 05/19/22 documented as of this encounter
--- OUTSIDE RECORDS SUMMARY | 2024-12-22 09:35 | XMS_ITS | Clinical Summary ---
Author Organization [facility] Address [address] [place] [address] Phone Care Team Providers Care Botany Technician Name Role Phone Vitaly Manzanares MD [...] Encounters Date Type Department Care Team Description 12/11/2024 10:30 AM CDT Outpatient Clinic Visit [facility] [address] [place] [address] Marcell Joyner, VERONA Adjustment disorder with depressed mood (Primary Dx) Discharge Disposition: Discharged to home or Selfcare 12/11/2024 Travel 11/21/2024 9:15 AM CDT Outpatient [facility] [address] [place] [address] Marcell Joyner LCSW Adjustment disorder with depressed mood (Primary Dx) Discharge Disposition: Discharged to home or Selfcare 11/21/2024 Travel 10/20/2024 10:00 AM CDT [facility] [address] [place] [address] Marcell Joyner LCSW Adjustment disorder with depressed mood (Primary Dx) Discharge Disposition: Discharged to home or Selfcare 10/20/2024 Travel 09/27/2024 1:30 PM CDT Outpatient Clinic Visit [facility] [address] [place] [address] Marcell Joyner LCSW Adjustment disorder with depressed mood (Primary Dx) Discharge Disposition: Discharged to home or Selfcare 09/27/2024 Travel from Last 3 Months Family History [...] Department Care Team (Latest Contact Info) Description 12/25/2024 1:30 PM CDT Out[facility] [address] [place] [address] Marclel Joyner LCSW [address] [place] [address] Discharge Disposition: Discharged to home or Selfcare [...] Mammogram 10/15/2022 10/15/2021, 10/15/2021 Influenza Immunization (#1) 2024 SARS-COV-2 Immunization ( - season) 2024 Medicare Subsequent AWV [id number] 01/10/2025, 02/20/2020, 11/29/2017 Medicare Initial AWV G0438 Discontinued 12/22/2022 Hepatitis B Immunization Aged Out No longer eligible based on patient's age to complete this topic Human Papillomavirus (HPV) Immunization Aged Out No longer eligible based on patient's age to complete this topic Meningococcal Immunization (ACWY) Aged Out No longer eligible based on patient's age to complete this topic Rotavirus Immunization Aged Out No lo nger eligible based on patient's age to complete this topic Goals Goal Patient Goal Type Associated Problems Recent Progress Patient-Stated? Author Behavioral Health Behavioral Health On track(2024 10:59 AM CDT) Yes Marcell Joyner, WINE CELLAR WORKER Note: I need help coping with all my physical health issues and caregiver stress along with physical limitations from my heart. Goal/Objective: Improve coping skills. Anticipated Time Frame for Goal Completion: 6 months Goal Reviewed with: patient Readiness to change: Ready to change Department associated with goal: [facility] Steps to [...] sessions Insurance MEDICARE C AET[employer] Care Teams Botany Technician Relationship Specialty Start Date End Date Vitaly Manzanares MD [address] [place] [address] PCP - General Family Medicine 04/21/24
--- OUTSIDE RECORDS SUMMARY | 2024-12-22 09:35 | XMS_ITS | Encounter Summary ---
Author Organization [facility] Address [address] [place] [address] Care Team Providers Care Territory Service Representative Name Role Phone Vitaly Manzanares MD Primary Care Provider [phone] Encounter Details Date Type Department Care Team (Late st Contact Info) Description 06/28/[address] [facility] Internal Medicine [place] [address] [place] [address] Gadiel Christensen MD [address] [place] [id number] Social History Tobacco Use Types Packs/Day Years Used Date Smoking Tobacco: Never Assessed Comments Unknown Sex and Gender Information Value Date Recorded Sex Assigned at Not on file Legal Sex Female 5:01 AM ARCGIS DEVELOPER Gender Identity Not on file Sexual Orientation Not on file documented as of this encounter Plan of Treatment Upcoming Encounters Date Type Department Care Team (Latest Contact Info) Description 12/27/2024 10:01 AM CDT Hospital Encounter [facility] Horse Identifier [address] [place] [address] Conor Grimm MD [address] [place] [address] [address] [place] [address] Atherosclerosis of [place] coronary artery of [place] heart, unspecified whether angina present 12/27/2024 10:01 AM CDT - 12/27/2024 10:54 AM CDT Surgery [facility] Horse Identifier [address] [place] [address] Conor Grimm MD [address] [place] [address] [address] [place] [address] Left heart cath documented as of this encounter Visit Diagnoses Not on filedocumented in this encounter Care Teams Territory Service Representative Relationship Specialty Start Date End Date Vitaly Manzanares MD [address] [place] [address] PCP - General Family Practice 05/19/22 documented as of this encounter
--- OUTSIDE RECORDS SUMMARY | 2024-12-22 09:35 | XMS_ITS | Encounter Summary ---
Author Organization [facility] Address [address] [place] [address] Care Team Providers Care Travelift Operator Name Role Phone Vitaly Manzanares MD Primary Care Provider [phone] Encounter Details Date Type Department Care Team (Late st Contact Info) Description 01/26/2006 Outpatient Historical [facility] Internal Medicine [place] [address] [place] [address] Gadiel Christensen MD [address] [place] [id number] Social History Tobacco Use Types Packs/Day Years Used Date Smoking Tobacco: Never Assessed Comments Unknown Sex and Gender Information Value Date Recorded Sex Assigned at Not on file Legal Sex Female 5:01 AM SLIDE MAKER Gender Identity Not on file Sexual Orientation Not on file documented as of this encounter Plan of Treatment Upcoming Encounters Date Type Department Care Team (Latest Contact Info) Description 12/27/2024 10:01 AM CDT Hospital Encounter [facility] Deputy [address] [place] [address] Conor Grimm MD [address] [place] [address] [address] [place] [address] Atherosclerosis of [place] coronary artery of [place] heart, unspecified whether angina present 12/27/2024 10:01 AM CDT - 12/27/2024 10:54 AM CDT Surgery [facility] Deputy [address] [place] [address] Conor Grimm MD [address] [place] [address] [address] [place] [address] Left heart cath documented as of this encounter Visit Diagnoses Not on filedocumented in this encounter Care Teams Travelift Operator Relationship Specialty Start Date End Date Vitaly Manzanares MD [address] [place] [address] PCP - General Family Practice 05/19/22 documented as of this encounter
--- OUTSIDE RECORDS SUMMARY | 2024-12-22 09:35 | XMS_ITS | Encounter Summary ---
Author Organization [facility] Address [address] [place] [address] Care Team Providers Care Flower Cutter Name Role Phone Vitaly Manzanares MD Primary Care Provider [phone] Reason for Visit * Reason Onset Date Comments needs cath 12/18/2024 Encounter Details Date Type Department Care Team (Late st Contact Info) Description 12/18/2024 Telephone [facility] [address] [facility] [address] [place] [address] Esteban Dueñas MD [facility] [address] [place] [address] needs cath Social History Tobacco Use Types Packs/Day Years [...] on file Legal 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 Please arrive at the [facility] (1st floor), check in at the information desk/kiosk, at [phone]. Please get your blood drawn by 12/26. These are non fasting and you can go to any [facility] lab. If you would like labs done at an outside hospital, please reply back with their fax number. You will need the lab to fax us the results of the blood work to [phone]. INSTRUCTIONS: - Nothing to eat or drink after midnight - You MAY take your medications in the morning with a sip of water - You will need to have a entry level truck driver - No driving for 24-48 hours following the procedure - Please note case start time is subject to change slightly due to possible urgent case priority, length of case, unexpected schedule changes, etc. Due to your contrast dye allergy, please take Prednisone 50 mg twice on 12/26 (morning and evening)and once the morning of the procedure. A prescription will be sent to your pharmacy. Also take Benadryl 50 mg the morning of your procedure (this is non-prescription medication). Spoke to pt on the phone, procedure scheduled, orders placed. Instructions given to pt verbally andsent via [employer] message. Pt verbalized understanding. Pt has a listed intolerance to aspirin. Ok if she stays off aspirin prior to cath? * Telephone Encounter - Alissa Watson RN - 12/18/2024 2:59 PM CDT LM for pt, direct phone # given. * Telephone Encounter - Alissa Watson RN - 12/18/2024 2:59 PM CDT ----- Message from Dr. Esteban Dueñas sent at 12/18/2024 10:06 AM CDT ----- I talked to Ms. Nguyen this morning, and she is agreeable to undergo another C, with Dr. Grimm. She has an IV contrast dye allergy and Aspirin allergy. Thanks, SHAN documented in this encounter Plan of Treatment Upcoming Encounters Date Type Department Care Team (Latest Contact Info) Description 12/27/2024 10:01 AM CDT Hospital Encounter [facility] Machine Silver Stripper [address] [place] [address] Conor Grimm MD [address] [facility] [address] [place], [place] [id number] Atherosclerosis of [place] coronary artery of [place] heart, unspecified whether angina present 12/27/2024 10:01 AM CDT - 12/27/2024 10:54 AM CDT Surgery [facility] Machine Silver Stripper [address] [place] [address] Conor Grimm MD [address] [facility] [address] [place], [place] [id number] Left heart cath Scheduled Orders Name Type Priority Associated Diagnoses Orde r Schedule CBC WITH DIFFERENTIAL Lab Routine Preop testing Abnormal coagulation profile Abnormal laboratory test Expected: 12/18/2024, Expires: 12/18/2025 BASIC METABOLIC PANEL Lab Routine Preop testing Abnormal coagulation profile Abnormal laboratory test Expected: 12/18/2024, Expires: 12/18/2025 PROTIME-INR Lab Routine Preop testing Abnormal coagulation profile Abnormal laboratory test Expected: 12/18/2024, Expires: 12/18/2025 documented as of this encounter Visit Diagnoses Diagnosis Preop testing- Primary Preoperative examination, unspecified Abnormal coagulation profile Abnormal laboratory test Other abnormal clinical finding Atherosclerosis of [place] coronary artery of [place] heart, unspecified whether angina present Chronic systolic (congestive) heart failure Coronary artery disease involving [place] coronary artery of [place] heart, unspecified whether angina present Atherosclerosis of [place] coronary artery of [place] heart, unspecified whether angina present Chronic systolic (congestive) heart failure Coronary artery disease involving [place] coronary artery of [place] heart, unspecified whether angina present documented in this encounter Care Teams Flower Cutter Relationship Specialty Start Date End Date Vitaly Manzanares MD [address] [place] [address] PCP - General Family Practice 05/19/22 documented as of this encounter
--- OUTSIDE RECORDS SUMMARY | 2024-12-22 09:35 | XMS_ITS | Encounter Summary ---
Author Organization [facility] Address [address] [place] [address] Care Team Providers Care Vba Programmer Name Role Phone Vitaly Manzanares MD Primary Care Provider [phone] Encounter Details Date Type Department Care Team (Late st Contact Info) Description 03/30/2001 Outpatient Historical [facility] Internal Medicine [place] [address] [place] [address] Gadiel Christensen MD [address] [place] [phone] Social History Tobacco Use Types Packs/Day Years Used Date Smoking Tobacco: Never Assessed Comments Unknown Sex and Gender Information Value Date Recorded Sex Assigned at Not on file 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 Gender Identity Not on file Sexual Orientation Not on file documented as of this encounter Plan of Treatment Upcoming Encounters Date Type Department Care Team (Latest Contact Info) Description 12/27/2024 10:01 AM CDT Hospital Encounter [facility] Oracle Agile Plm Consultant [address] [place] [address] Conor Grimm MD [address] [place] [address] [address] [place] [address] Atherosclerosis of [place] coronary artery of [place] heart, unspecified whether angina present 12/27/2024 10:01 AM CDT - 12/27/2024 10:54 AM CDT Surgery [facility] Oracle Agile Plm Consultant [address] [place] [address] Conor Grimm MD [address] [place] [address] [address] [place] [address] Left heart cath documented as of this encounter Visit Diagnoses Not on filedocumented in this encounter Care Teams Vba Programmer Relationship Specialty Start Date End Date Vitaly Manzanares MD [address] [place] [address] PCP - General Family Practice 05/19/22 documented as of this encounter
--- OUTSIDE RECORDS SUMMARY | 2024-12-22 09:35 | XMS_ITS | Encounter Summary ---
Author Organization [facility] Address [address] [place] [address] Care Team Providers Care Competitive Intelligence Analyst Name Role Phone Vitaly Manzanares MD Primary Care Provider [phone] Encounter Details Date Type Department Care Team (Late st Contact Info) Description 01/28/2004 Outpatient Historical [facility] Internal Medicine [place] [address] [place] [address] Gadiel Christensen MD [address] [place] [phone] Social History Tobacco Use Types Packs/Day Years Used Date Smoking Tobacco: Never Assessed Comments Unknown Sex and Gender Information Value Date Recorded Sex Assigned at Not on file 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 Gender Identity Not on file Sexual Orientation Not on file documented as of this encounter Plan of Treatment Upcoming Encounters Date Type Department Care Team (Latest Contact Info) Description 12/27/2024 10:01 AM CDT Hospital Encounter [facility] Mail Distributor [address] [place] [address] Conor Grimm MD [address] [place] [address] [address] [place] [address] Atherosclerosis of [place] coronary artery of [place] heart, unspecified whether angina present 12/27/2024 10:01 AM CDT - 12/27/2024 10:54 AM CDT Surgery [facility] Mail Distributor [address] [place] [address] Conor Grimm MD [address] [place] [address] 2015 [place] [address] Left heart cath documented as of this encounter Visit Diagnoses Not on filedocumented in this encounter Care Teams Competitive Intelligence Analyst Relationship Specialty Start Date End Date Vitaly Manzanares MD [address] [place] [address] PCP - General Family Practice 05/19/22 documented as of this encounter
--- OUTSIDE RECORDS SUMMARY | 2024-12-22 09:35 | XMS_ITS | Encounter Summary ---
Author Organization [facility] Address [address] [place] [address] Care Team Providers Care Fur Repairer Name Role Phone Vitaly Manzanares MD Primary Care Provider [phone] Encounter Details Date Type Department Care Team (Late st Contact Info) Description 08/19/2005 Outpatient Historical [facility] Internal Medicine [place] [address] [place] [address] Gadiel Christensen MD [address] [place] [phone] Social History Tobacco Use Types Packs/Day Years Used Date Smoking Tobacco: Never Assessed Comments Unknown Sex and Gender Information Value Date Recorded Sex Assigned at Not on file 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 Gender Identity Not on file Sexual Orientation Not on file documented as of this encounter Plan of Treatment Upcoming Encounters Date Type Department Care Team (Latest Contact Info) Description 12/27/2024 10:01 AM CDT Hospital Encounter [facility] Insole Coverer [address] [place] [address] Conor Grimm MD [address] [place] [address] [address] [place] [address] Atherosclerosis of [place] coronary artery of [place] heart, unspecified whether angina present 12/27/2024 10:01 AM CDT - 12/27/2024 10:54 AM CDT Surgery [facility] Insole Coverer [address] [place] [address] Conor Grimm MD [address] [place] [address] 2015 [place] [address] Left heart cath documented as of this encounter Visit Diagnoses Not on filedocumented in this encounter Care Teams Fur Repairer Relationship Specialty Start Date End Date Vitaly Manzanares MD [address] [place] [address] PCP - General Family Practice 05/19/22 documented as of this encounter
--- OUTSIDE RECORDS SUMMARY | 2024-12-22 09:35 | XMS_ITS | Encounter Summary ---
Author Organization [facility] Address 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 Gender Identity Not on file Sexual Orientation Not on file documented as of this encounter Plan of Treatment Upcoming Encounters Date Type Department Care Team (Latest Contact Info) Description 12/27/2024 10:01 AM CDT Hospital Encounter [facility] Consumer Safety Inspector [address] [place] [id number] Conor Grimm MD [address] [place] [address] [address] [place], [place] [id number] Atherosclerosis of [place] coronary artery of [place] heart, unspecified whether angina present 12/27/2024 10:01 AM CDT - 12/27/2024 10:54 AM CDT Surgery [facility] Consumer Safety Inspector [address] [place] [address] Conor Grimm MD [address] [place] [address] 2014 [place] [address] Left heart cath documented as of this encounter Visit Diagnoses Diagnosis Nonspecific (abnormal) findings on radiological and other examination of skull and head- Primary Atherosclerosis of [place] coronary artery of [place] heart, unspecified whether angina present Chronic systolic (congestive) heart failure Coronary artery disease involving [place] coronary artery of [place] heart, unspecified whether angina present Atherosclerosis of [place] coronary artery of [place] heart, unspecified whether angina present Chronic systolic (congestive) heart failure Coronary artery disease involving [place] coronary artery of [place] heart, unspecified whether angina present documented in this encounter Care Teams Chute Tapper Relationship Specialty Start Date End Date Vitaly Manzanares MD [address] [place] [address] PCP - General Family Practice 05/19/22 documented as of this encounter
--- OUTSIDE RECORDS SUMMARY | 2024-12-22 09:35 | XMS_ITS | Encounter Summary ---
Author Organization [facility] Address 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 Gender Identity Not on file Sexual Orientation Not on file documented as of this encounter Plan of Treatment Upcoming Encounters Date Type Department Care Team (Latest Contact Info) Description 12/27/2024 10:01 AM CDT Hospital Encounter [facility] Brokerage Manager [address] [place] [address] Conor Grimm MD [address] [place] [address] [address] [place], [place] [id number] Atherosclerosis of [place] coronary artery of [place] heart, unspecified whether angina present 12/27/2024 10:01 AM CDT - 12/27/2024 10:54 AM CDT Surgery [facility] Brokerage Manager [address] [place] [address] Conor Grimm MD [address] [place] [address] 2014 [place] [address] Left heart cath documented as of this encounter Visit Diagnoses Diagnosis Unspecified sinusitis (chronic)- Primary Atherosclerosis of [place] coronary artery of [place] heart, unspecified whether angina present Chronic systolic (congestive) heart failure Coronary artery disease involving [place] coronary artery of [place] heart, unspecified whether angina present Atherosclerosis of [place] coronary artery of [place] heart, unspecified whether angina present Chronic systolic (congestive) heart failure Coronary artery disease involving [place] coronary artery of [place] heart, unspecified whether angina present documented in this encounter Care Teams Quality Control Analyst Relationship Specialty Start Date End Date Vitaly Manzanares MD [address] [place] [address] PCP - General Family Practice 05/19/22 documented as of this encounter
--- OUTSIDE RECORDS SUMMARY | 2024-12-22 09:36 | XMS_ITS | Encounter Summary ---
Author Organization [facility] Address 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 SUPERVISOR Gender Identity Not on file Sexual Orientation Not on file documented as of this encounter Plan of Treatment Upcoming Encounters Date Type Department Care Team (Latest Contact Info) Description 12/27/2024 10:01 AM CDT Hospital Encounter [facility] Cleaner Signs [address] [place] [address] Conor Grimm MD [address] [place] [address] [address] [place] [address] Atherosclerosis of [place] coronary artery of [place] heart, unspecified whether angina present 12/27/2024 10:01 AM CDT - 12/27/2024 10:54 AM CDT Surgery [facility] Cleaner Signs [address] [place] [address] Conor Grimm MD [address] [place] [address] [address] [place] [address] Left heart cath documented as of this encounter Visit Diagnoses Diagnosis Chest pain, unspecified- Primary Atherosclerosis of [place] coronary artery of [place] heart, unspecified whether angina present Chronic systolic (congestive) heart failure Coronary artery disease involving [place] coronary artery of [place] heart, unspecified whether angina present Atherosclerosis of [place] coronary artery of [place] heart, unspecified whether angina present Chronic systolic (congestive) heart failure Coronary artery disease involving [place] coronary artery of [place] heart, unspecified whether angina present documented in this encounter Care Teams Shipping Packer Relationship Specialty Start Date End Date Vitaly Manzanares MD [address] [place] [address] PCP - General Family Practice 05/19/22 documented as of this encounter
--- OUTSIDE RECORDS SUMMARY | 2024-12-22 09:36 | XMS_ITS | Encounter Summary ---
Author Organization [facility] Address [address] [place] [address] Care Team Providers Care Pipe Smoking Machine Operator Name Role Phone Vitaly Manzanares MD Primary Care Provider [phone] Encounter Details Date Type Department Care Team (Late st Contact Info) Description 01/25/2003 Outpatient Historical [facility] Internal Medicine [place] [address] [place] [address] Gadiel Christensen MD [address] [place] [phone] Social History Tobacco Use Types Packs/Day Years Used Date Smoking Tobacco: Never Assessed Comments Unknown Sex and Gender Information Value Date Recorded Sex Assigned at Not on file Legal Sex Female 5:01 AM MANAGER MEDIA RELATIONS Gender Identity Not on file Sexual Orientation Not on file documented as of this encounter Plan of Treatment Upcoming Encounters Date Type Department Care Team (Latest Contact Info) Description 12/27/2024 10:01 AM CDT Hospital Encounter [facility] Cake Washer [address] [place] [address] Conor Grimm MD [address] [place] [address] [address] [place] [address] Atherosclerosis of [place] coronary artery of [place] heart, unspecified whether angina present 12/27/2024 10:01 AM CDT - 12/27/2024 10:54 AM CDT Surgery [facility] Cake Washer [address] [place] [address] Conor Grimm MD [address] [place] [address] 2015 [place] [address] Left heart cath documented as of this encounter Visit Diagnoses Not on filedocumented in this encounter Care Teams Pipe Smoking Machine Operator Relationship Specialty Start Date End Date Vitaly Manzanares MD [address] [place] [address] PCP - General Family Practice 05/19/22 documented as of this encounter
--- OUTSIDE RECORDS SUMMARY | 2024-12-22 09:36 | XMS_ITS | Encounter Summary ---
Author Organization [facility] Address [address] [place] [address] Care Team Providers Care New Car Get Ready Mechanic Name Role Phone Vitaly Manzanares MD Primary Care Provider [phone] Encounter Details Date Type Department Care Team (Late st Contact Info) Description 06/15/2003 Outpatient Historical [facility] Internal Medicine [place] [address] [place] [address] Gadiel Christensen MD [address] [place] [phone] Social History Tobacco Use Types Packs/Day Years Used Date Smoking Tobacco: Never Assessed Comments Unknown Sex and Gender Information Value Date Recorded Sex Assigned at Not on file Legal Sex Female 5:01 AM JOINT SPECIAL OPERATIONS Gender Identity Not on file Sexual Orientation Not on file documented as of this encounter Plan of Treatment Upcoming Encounters Date Type Department Care Team (Latest Contact Info) Description 12/27/2024 10:01 AM CDT Hospital Encounter [facility] Director Of Rehabilitation And Wellness [address] [place] [address] Conor Grimm MD [address] [place] [address] [address] [place] [address] Atherosclerosis of [place] coronary artery of [place] heart, unspecified whether angina present 12/27/2024 10:01 AM CDT - 12/27/2024 10:54 AM CDT Surgery [facility] Director Of Rehabilitation And Wellness [address] [place] [address] Conor Grimm MD [address] [place] [address] 2015 [place] [address] Left heart cath documented as of this encounter Visit Diagnoses Not on filedocumented in this encounter Care Teams New Car Get Ready Mechanic Relationship Specialty Start Date End Date Vitaly Manzanares MD [address] [place] [address] PCP - General Family Practice 05/19/22 documented as of this encounter
--- OUTSIDE RECORDS SUMMARY | 2024-12-22 09:36 | XMS_ITS | Encounter Summary ---
Author Organization [facility] Address [address] [place] [address] Care Team Providers Care Mud Worker Name Role Phone Vitaly Manzanares MD Primary Care Provider [phone] Encounter Details Date Type Department Care Team (Late st Contact Info) Description 01/15/2003 Outpatient Historical [facility] Internal Medicine [place] [address] [place] [address] Gadiel Christenesn MD [address] [place] [phone] Social History Tobacco Use Types Packs/Day Years Used Date Smoking Tobacco: Never Assessed Comments Unknown Sex and Gender Information Value Date Recorded Sex Assigned at Not on file Legal Sex Female 5:01 AM 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 Gender Identity Not on file Sexual Orientation Not on file documented as of this encounter Plan of Treatment Upcoming Encounters Date Type Department Care Team (Latest Contact Info) Description 12/27/2024 10:01 AM CDT Hospital Encounter [facility] Central Office Operator Supervisor [address] [place] [address] Conor Grimm MD [address] [place] [address] [address] [place] [address] Atherosclerosis of [place] coronary artery of [place] heart, unspecified whether angina present 12/27/2024 10:01 AM CDT - 12/27/2024 10:54 AM CDT Surgery [facility] Central Office Operator Supervisor [address] [place] [address] Conor Grimm MD [address] [place] [address] [address] [place] [address] Left heart cath documented as of this encounter Visit Diagnoses Not on filedocumented in this encounter Care Teams Mud Worker Relationship Specialty Start Date End Date Vitaly Manzanares MD [address] [place] [address] PCP - General Family Practice 05/19/22 documented as of this encounter
--- OUTSIDE RECORDS SUMMARY | 2024-12-22 09:36 | XMS_ITS | Encounter Summary ---
Author Organization [facility] Address [address] [place] [address] Care Team Providers Care Round Boner Name Role Phone Vitaly Manzanares MD Primary Care Provider [phone] Encounter Details Date Type Department Care Team (Late st Contact Info) Description 02/26/2003 Outpatient Historical [facility] Internal Medicine [place] [address] [place] [address] Gadiel Christensen MD [address] [place] [phone] Social History Tobacco Use Types Packs/Day Years Used Date Smoking Tobacco: Never Assessed Comments Unknown Sex and Gender Information Value Date Recorded Sex Assigned at Not on file Legal Sex Female 5:01 AM UNIFORM MAKER Gender Identity Not on file Sexual Orientation Not on file documented as of this encounter Plan of Treatment Upcoming Encounters Date Type Department Care Team (Latest Contact Info) Description 12/27/2024 10:01 AM CDT Hospital Encounter [facility] Product Technician [address] [place] [address] Conor Grimm MD [address] [place] [address] [address] [place] [address] Atherosclerosis of [place] coronary artery of [place] heart, unspecified whether angina present 12/27/2024 10:01 AM CDT - 12/27/2024 10:54 AM CDT Surgery [facility] Product Technician [address] [place] [address] Conor Grimm MD [address] [place] [address] 2015 [place] [address] Left heart cath documented as of this encounter Visit Diagnoses Not on filedocumented in this encounter Care Teams Round Boner Relationship Specialty Start Date End Date Vitaly Manzanares MD [address] [place] [address] PCP - General Family Practice 05/19/22 documented as of this encounter
--- OUTSIDE RECORDS SUMMARY | 2024-12-22 09:36 | XMS_ITS | Encounter Summary ---
Author Organization [facility] Address [address] [place] [address] Care Team Providers Care Sale Professional Digital Marketing Name Role Phone Vitaly Manzanares MD Primary Care Provider [phone] Encounter Details Date Type Department Care Team (Late st Contact Info) Description 08/29/2003 Outpatient Historical [facility] Internal Medicine [place] [address] [place] [address] Gadiel Christensen MD [address] [place] [phone] Social History Tobacco Use Types Packs/Day Years Used Date Smoking Tobacco: Never Assessed Comments Unknown Sex and Gender Information Value Date Recorded Sex Assigned at Not on file 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 Gender Identity Not on file Sexual Orientation Not on file documented as of this encounter Plan of Treatment Upcoming Encounters Date Type Department Care Team (Latest Contact Info) Description 12/27/2024 10:01 AM CDT Hospital Encounter [facility] Border Measurer And Cutter [address] [place] [address] Conor Grimm MD [address] [place] [address] [address] [place] [address] Atherosclerosis of [place] coronary artery of [place] heart, unspecified whether angina present 12/27/2024 10:01 AM CDT - 12/27/2024 10:54 AM CDT Surgery [facility] Border Measurer And Cutter [address] [place] [address] Conor Grimm MD [address] [place] [address] 2015 [place] [address] Left heart cath documented as of this encounter Visit Diagnoses Not on filedocumented in this encounter Care Teams Sale Professional Digital Marketing Relationship Specialty Start Date End Date Vitaly Manzanares MD [address] [place] [address] PCP - General Family Practice 05/19/22 documented as of this encounter
--- OUTSIDE RECORDS SUMMARY | 2024-12-22 09:36 | XMS_ITS | Encounter Summary ---
Author Organization [facility] Address [address] [place] [address] Care Team Providers Care Preschool Teacher'S Assistant Name Role Phone Vitaly Manzanares MD Primary Care Provider [phone] Encounter Details Date Type Department Care Team (Late st Contact Info) Description 02/23/2003 Outpatient Historical [facility] Support Serv. (Adt Cardiology-[facility]) [address] [place] [address] Esteban Dueñas MD [address] [place] [address] [place] [address] Social History Tobacco Use Types Packs/Day Years Used Date Smoking Tobacco: Never Assessed Comments Unknown Sex and Gender Information Value Date Recorded Sex Assigned at Not on file Legal Sex Female 5:01 AM MEDICAL RECORDS TECH Gender Identity Not on file Sexual Orientation Not on file documented as of this encounter Plan of Treatment Upcoming Encounters Date Type Department Care Team (Latest Contact Info) Description 12/27/2024 10:01 AM CDT Hospital Encounter [facility] Covering And Lining Supervisor [address] [place] [address] Conor Grimm MD [address] [facility] [address] [place] [address] Atherosclerosis of [place] coronary artery of [place] heart, unspecified whether angina present 12/27/2024 10:01 AM CDT - 12/27/2024 10:54 AM CDT Surgery [facility] Covering And Lining Supervisor [address] [place] [address] Conor Grimm MD [address] [place] [address] [address] [place] [address] Left heart cath documented as of this encounter Visit Diagnoses Not on filedocumented in this encounter Care Teams Preschool Teacher'S Assistant Relationship Specialty Start Date End Date Vitaly Manzanares MD [address] [place] [address] PCP - General Family Practice 05/19/22 documented as of this encounter
[2024-12-22 09:55] LABS: INR 0.9; Prothrombin Time 10.5 Seconds (9.50-12.1)
[2024-12-22 11:34] LABS: Anion Gap 5 mmol/L (4-12); Blood Urea Nitrogen 13 mg/dL (7-17); Calcium 9.3 mg/dL (8.4-10.2); Carbon Dioxide 28 mmol/L (22-30); Chloride 106 mmol/L (98-107); Estimated Glomerular Filt Rate > 60; Glucose 92 mg/dL (65-110); Osmolality Calculated 288 mOsm/kg (285-295); Potassium 4.3 mmol/L (3.4-5.0); Sodium 139 mmol/L (137-145)
== END 2024-12-22 09:13 | disposition home or self-care (01) ==
LOC: CHSLAB 09:18
PROVIDERS: PCP Family Medicine
DX: Z01.818 Encounter for other preprocedural examination (principal); R79.1 Abnormal coagulation profile; R89.9 Unspecified abnormal finding in specimens from other organs, systems and tissues
CPT/HCPCS: 36415; 80048; 85025; 85610

== ENCOUNTER 2025-01-25 08:48 | Outpatient (CLI) | payer MEDICARE, SELFPAY ==
--- OUTSIDE RECORDS SUMMARY | 2025-01-24 09:37 | XMS_ITS | Encounter Summary ---
Author Organization [facility] Address 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 Procedures ECHO COMPLETE - CONTRAST AND STRAIN IF INDICATED ECHO COMPLETE - CONTRAST AND STRAIN IF INDICATED ID ECHO TTHRC R-T 2D W/WOM-MODE COMPL SPEC&COLR D ID MYOCRD STRAIN IMG SPECKLE TRCK ASSMT MYOCRD MECH ID TTE W OR WO FOL WCON,DOPPLER Esteban Dueñas MD [address] [facility] [address] [place] [address] Phone: tel: fax: [facility] Diagnostic Cardiology Services [address] [place] at [id number] [facility] [address] [place] [address] Phone: tel: fax: Referral ID Status Reason Start Date Expiration Date Visits Re quested Visits Authorized [id number] Closed 01/17/2025 02/17/2026 1 1 Y WRITER Reason for Visit * Echocardiography (Routine) - Closed Specialty Diagnoses / Procedures Referred By Contac nivia Referred To Contact Diagnoses 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 Procedures ECHO COMPLETE - CONTRAST AND STRAIN IF INDICATED ECHO COMPLETE - CONTRAST AND STRAIN IF INDICATED ID ECHO TTHRC R-T 2D W/WOM-MODE COMPL SPEC&COLR D ID MYOCRD STRAIN IMG SPECKLE [facility] WO FOL WCON,DOPPLER Esteban Dueñas MD [address] [facility] [address] [place] [address] Phone: tel: fax: [facility] Diagnostic Cardiology Services [place] at [phone] [facility] [address] [place] [address] Phone: tel: fax: Referral ID Status Reason Start Date Expiration Date Visits Re quested Visits Authorized [id number] Closed 01/17/2025 02/17/2026 1 1 Encounter Details Date Type Department Care Team (Latest Contact Info) Description 01/24/2025 9:37 AM STORY WRITER - 01/24/2025 11:59 PM STORY WRITER Hospital Encounter [facility] Diagnostic Cardiology Services [place] at [phone] [facility] [address] [place] [address] Esteban Dueñas MD [address] [facility] [address] [place] [address] Arrived Discharge Disposition: Home or Self Care Social History Tobacco Use Types Packs/Day Years [...] on file Legal Sex Female 5:01 AM STORY WRITER Gender Identity Not on file Sexual Orientation Not on file Occupation Industry Job Start Date Job End Date Not on file Not on file Not on file Not on file documented as of this encounter Medications at Time of Discharge isosorbide mononitrate (IMDUR) 120 mg Extended Release 24 hour tablet TAKE 1 TABLET (120 MG) BY MOUTH DAILY IN THE MORNING. 90 Tablet 3 5 predniSONE (DELTASONE) 50 mg tablet Take 1 Tablet (50 mg) by mouth see administration instructions. Take 1 tablet in AM and PM on 12/26. Take 1 tablet in AM on 12/27. 3 Tablet 5 clopidogreL (PLAVIX) 75 mg Tablet TAKE 1 TABLET BY MOUTH EVERY DAY 90 Tablet 1 5 lisinopriL (PRINIVIL) 2.5 mg tabletIndications:E ssential hypertension Take 1 Tablet (2.5 mg) by mouth 2 times daily. 180 Tablet 3 5 carvediloL (COREG) 12.5 mg tablet Take 1 Tablet (12.5 mg) by mouth 2 times daily. 180 Tablet 3 5 nitroglycerin (NITROSTAT) 0.4 mg Tablet, Sublingual Dissolve 1 tab under tongue, every 5 min, as needed for chest pain, for a total of 3 tabs. If pain persists, call 911. 25 Tablet 1 5 atorvastatin (LIPITOR) 40 mg tabletIndications:M ixed hyperlipidemia TAKE 1 TABLET BY MOUTH EVERYDAY AT BEDTIME 90 Tablet 3 5 cilostazoL (PLETAL) 100 mg Tablet TAKE 1 TABLET (100 MG) BY MOUTH 2 TIMES DAILY BEFORE MEALS. 180 Tablet 3 5 ranolazine ER (RANEXA) 500 mg Extended Release 12 hour tablet TAKE 1 TABLET BY MOUTH EVERY 12 HOURS 180 Tablet 3 4 alendronate (FOSAMAX) 70 mg tablet Take 1 Tablet by mouth every 7 days. 4 coenzyme Q10 (Co Q-10) 200 mg CapsuleIndications: Coronary artery disease involving [place] heart with unstable angina pectoris, unspecified vessel or lesion type (CMS/HCC) Take 1 Capsule (200 mg) by mouth daily. 100 Capsule 3 4 IBUPROFEN ORAL Take by mouth. PRN pantoprazole (PROTONIX) 40 mg Tablet, Delayed Release (E.C.) Take 40 mg by mouth 2 times daily. 3 calcium-cholecalcif emmanuel 500 mg(1,250mg) -400 unit tablet Take 1 Tablet by mouth daily. acetaminophen (TYLENOL) 500 mg tablet Take 500 mg by mouth every 6 hours as needed. Not taking HYDROcodone-acetami nophen (NORCO) 5-325 mg tabletIndications:M igraine with aura and without status migrainosus, not intractable,History of uterine cancer Take 1 Tablet by mouth every 6 hours as needed for Pain, Moderate. Max Daily Amount: 4 Tablets 20 Tablet 1 acetaminophen-caffe ine-butalbital (FIORICET) 325-40-50 mg tabletIndications:M igraine with aura and without status migrainosus, not intractable Take 1 Tablet by mouth every 4 hours as needed for Headaches. 100 Tablet 9 EPINEPHrine (EPIPEN) 0.3 mg/0.3 mL Auto-InjectorIndica tions:Aspirin allergy Inject 0.3 mL (0.3 mg) by intramuscular injection 1 time daily as needed for Anaphylaxis. 1 Package 9 fluticasone (FLONASE) 50 mcg/spray [place], Suspension USE TWO SPRAYS IN EACH NOSTRIL ONCE DAILY. 48 Gram 3 8 albuterol HFA 90 mcg inhaler Take 2 Puffs by inhalation every 4 hours as needed for Wheezing. 8.5 Gram 3 8 benzonatate (TESSALON) 200 mg capsule Take 200 mg by mouth 3 times daily. Not taking promethazine (PHENERGAN) 25 mg tablet Take 1 Tablet (25 mg) by mouth every 6 hours as needed for Nausea. 100 Tablet 2 6 diphenhydrAMINE (BENADRYL) 25 mg tablet Take 50 mg by mouth every 6 hours as needed. documented as of this encounter Plan of Treatment Upcoming Encounters Date Type Department Care Team (Late st Contact Info) Description 04/24/2025 10:30 AM STORY WRITER Office Visit 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 #: [id number] BP: *Referring Physician:* Esteban Dueñas M.D., John M.D. *Ordering Physician:* Esteban Dueñas M.D. partition setter: Nurse: STUDY CONCLUSIONS: SUMMARY: - Left ventricle: The cavity size was normal. Wall thickness was increased in a pattern of mild LVH. Global systolic function is normal. For Epic reporting: the left ventricular ejection fraction is 60% . - Aortic valve: Mild to moderate regurgitation. - Mitral valve: Mild to moderate regurgitation. - Left atrium: The atrium is normal in size. - Right ventricle: The cavity size is normal. Systolic function is normal. - Pulmonic valve: Mild regurgitation. Cardiac Anatomy: LEFT VENTRICLE: The cavity size was normal. Wall thickness was increased in a pattern of mild LVH. Global systolic function is normal. For Epic reporting: the left ventricular ejection fraction is 60% . AORTIC VALVE: Structurally normal valve. . Mild to moderate regurgitation. The mean systolic gradient is 3mm Hg. The peak systolic gradient is 8mm Hg. The LVOT to aortic valve VTI ratio is 0.8. The valve area is 2.5cm^2. The ratio of LVOT to aortic valve peak velocity is 0.69. AORTA: Aortic root: The root is normal-sized. MITRAL VALVE: Structurally normal valve. Mild to moderate regurgitation. The mean diastolic gradient is 1mm Hg. The peak diastolic gradient is 4mm Hg. LEFT ATRIUM: The atrium is normal in size. RIGHT VENTRICLE: The cavity size is normal. Systolic function is normal. PULMONIC VALVE: Structurally normal valve. Mild regurgitation. TRICUSPID VALVE: Structurally normal valve. No significant regurgitation. RIGHT ATRIUM: The atrium was normal in size. SYSTEMIC VEINS: Inferior vena cava: The IVC is normal-sized. PERICARDIUM: There is no pericardial effusion. Measurements Left ventricle Value Ref 07/13/2017 IVS, ED, LAX (H) 1.3 cm 0.6 - 0.9 DALE, LAX (L) 2.1 cm 3.8 - 5.2 DALE/bsa, LAX (L) 1.4 cm/m^2 2.3 - 3.1 DALE, LAX chord (N) 3.8 cm 3.8 - 5.2 3.0 ESD, LAX chord (L) 2.1 cm 2.2 - 3.5 1.9 DALE/bsa, LAX chord (N) 2.6 cm/m^2 2.3 - 3.1 ESD/bsa, LAX chord (N) 1.4 cm/m^2 1.3 - 2.1 FS, LAX chord (H) 46 % 27 - 45 36 IVS, ED (H) 1.3 cm 0.6 - 0.9 1.2 PW, ED (H) 1.2 cm 0.6 - 0.9 1.3 EDV, 2-p (N) 95 ml 46 - 106 43 ESV, 2-p (N) 32 ml 14 - 42 18 EF, 2-p (N) 66 % 54 - 74 58 SV, 2-p 63 ml --------- SV/bsa, 2-p 43.4 ml/m^2 --------- E', lat valente, TDI (L) 5.2 cm/sec >=10.0 5.3 E/e', lat valente, TDI (N) 11 <=13 E', med valente, TDI (L) 4.0 cm/sec >=7.0 4.2 E/e', med valente, TDI 14 --------- E', avg, TDI 4.6 cm/sec --------- E/e', avg, TDI (N) 12 <=14 LVOT Value Ref 07/13/2017 Diam, S 2.0 cm --------- Area 3.1 cm^2 --------- 3.1 Peak jermaine, S 0.96 m/sec --------- 0.87 VTI, S 21.6 cm --------- 16.6 Right ventricle Value Ref 07/13/2017 Pressure, S 21 mm Hg --------- Left atrium Value Ref 07/13/2017 AP dim, ES (N) 3.6 cm 2.7 - 3.8 3.5 AP dim index, ES (H) 2.5 cm/m^2 1.5 - 2.3 SI dim, A4C 4.7 cm --------- Area ES, A4C (N) 15 cm^2 <=20 Area/bsa ES, A4C 10.48 cm^2/m^2 --------- SI dim, A2C 5.2 cm --------- SI dim, shorter 4.7 cm --------- Vol, ES, 1-p A2C (N) 44 ml 22 - 52 Vol/bsa, ES, 1-p A2C (N) 30 ml/m^2 13 - 40 Vol, ES, 2-p 44 ml --------- 30 Vol/bsa, ES, 2-p (N) 30 ml/m^2 16 - 34 20 LA/Ao root ratio 1.09 --------- Aortic valve Value Ref 07/13/2017 Peak v, S 1.4 m/sec --------- 1.3 Mean v, S 0.81 m/sec --------- VTI, S 27.0 cm --------- 16.6 Mean grad, S 3 mm Hg --------- 3 Peak grad, S 8 mm Hg --------- 7 LVOT/AV, VTI ratio 0.8 --------- 1 CAL, VTI 2.5 cm^2 --------- 3.1 CAL/bsa, VTI 1.73 cm^2/m^2 --------- 2.11 LVOT/AV, Vpeak ratio 0.69 --------- 0.65 CAL, Vmax 2.2 cm^2 --------- 2.0 CAL/bsa, Vmax 1.5 cm^2/m^2 --------- 1.37 AR PHT 472 ms --------- Mitral valve Value Ref 07/13/2017 Mean v, D 0.48 m/sec --------- Peak E 0.55 m/sec --------- 0.36 Peak A 0.87 m/sec --------- 0.57 Decel time 239 ms --------- 88 Mean grad, D 1 mm Hg --------- Peak grad, D 4 mm Hg --------- Peak E/A ratio 0.6 --------- A-VTI 22.7 cm --------- Pulmonic valve Value Ref 07/13/2017 Peak v, S 0.89 m/sec --------- 1.13 Accel time 130 ms --------- Peak grad, S 3 mm Hg --------- Tricuspid valve Value Ref 07/13/2017 TR peak v (N) 1.7 m/sec <=2.8 Peak RV-RA grad, S 11 mm Hg --------- Aortic root Value Ref 07/13/2017 Root diam, 3.3 cm --------- Ascending aorta Value Ref 07/13/2017 AAo AP diam, S 3.1 cm --------- AAo AP diam/bsa, S 2.1 cm/m^2 --------- Systemic veins Value Ref 07/13/2017 Estimated RA pressure 10 mm Hg --------- Legend: (L) and (H) samina values outside specified reference range. (N) dickerson values inside specified reference range. Procedure data: Procedure information: A transthoracic echocardiogram was performed. Scanning was performed from the parasternal, apical, and subcostal acoustic windows. Transthoracic echocardiogram. Complete 2D, complete spectral Doppler, and color Doppler. Birthdate: Patient birthdate: 1950. Age: Patient is 74year(s) old. Sex: gender: female. Height: 152.4cm. 60in. Weight: 49.9kg. 110lb. Body mass index: 21.5kg/m^2. Body surface area: 1.45m^2. Study date: Study date: 01/24/2025. Study time: 09:54 AM. Prepared and Electronically Authenticated Steve De Jesus [id number] Procedure Note Steve De Jesus MD - 01/24/2025 [place] [address] [email or web address] Transthoracic Echocardiogram Patient: Aida Nguyen Study ID: [id number] Gender: F : 1950 Age: 74 Race: ASHLEY Height 152.4cm Study Date: 01/24/2025 Weight: 49.9kg Access. #: [id number] BP: *Referring Physician:* Esteban Dueñas M.D., John M.D. *Ordering Physician:* Esteban Dueñas M.D. partition setter: Nurse: STUDY CONCLUSIONS: SUMMARY: - Left ventricle: The cavity size was normal. Wall thickness was increasedin a pattern of mild LVH. Global systolic function is normal. For Epic reporting: the left ventricular ejection fraction is 60% . - Aortic valve: Mild to moderate regurgitation. - Mitral valve: Mild to moderate regurgitation. - Left atrium: The atrium is normal in size. - Right ventricle: The cavity size is normal. Systolic function isnormal. - Pulmonic valve: Mild regurgitation. Cardiac Anatomy: LEFT VENTRICLE: The cavity size was normal. Wall thickness was increasedin a pattern of mild LVH. Global systolic function is normal. For Epicreporting: the left ventricular ejection fraction is 60% . AORTIC VALVE: Structurally normal valve. . Mild to moderateregurgitation. The mean systolic gradient is 3mm Hg. The peak systolic gradient is 8mmHg. The LVOT to aortic valve VTI ratio is 0.8. The valve area is 2.5cm^2.The ratio of LVOT to aortic valve peak velocity is 0.69. AORTA: Aortic root: The root is normal-sized. MITRAL VALVE: Structurally normal valve. Mild to moderateregurgitation. The mean diastolic gradient is 1mm Hg. The peak diastolic gradient is 4mmHg. LEFT ATRIUM: The atrium is normal in size. RIGHT VENTRICLE: The cavity size is normal. Systolic function isnormal. PULMONIC VALVE: Structurally normal valve. Mild regurgitation. TRICUSPID VALVE: Structurally normal valve. No significantregurgitation. RIGHT ATRIUM: The atrium was normal in size. SYSTEMIC VEINS: Inferior vena cava: The IVC is normal-sized. PERICARDIUM: There is no pericardial effusion. Measurements Left ventricle Value Ref 07/13/2017 IVS, ED, LAX (H) 1.3 cm 0.6 - 0.9 DALE, LAX (L) 2.1 cm 3.8 - 5.2 DALE/bsa, LAX (L) 1.4 cm/m^2 2.3 - 3.1 DALE, LAX chord (N) 3.8 cm 3.8 - 5.2 3.0 ESD, LAX chord (L) 2.1 cm 2.2 - 3.5 1.9 DALE/bsa, LAX chord (N) 2.6 cm/m^2 2.3 - 3.1 ESD/bsa, LAX chord (N) 1.4 cm/m^2 1.3 - 2.1 FS, LAX chord (H) 46 % 27 - 45 36 IVS, ED (H) 1.3 cm 0.6 - 0.9 1.2 PW, ED (H) 1.2 cm 0.6 - 0.9 1.3 EDV, 2-p (N) 95 ml 46 - 106 43 ESV, 2-p (N) 32 ml 14 - 42 18 EF, 2-p (N) 66 % 54 - 74 58 SV, 2-p 63 ml --------- SV/bsa, 2-p 43.4 ml/m^2 --------- E', lat valente, TDI (L) 5.2 cm/sec >=10.0 5.3 E/e', lat valente, TDI (N) 11 <=13 E', med valente, TDI (L) 4.0 cm/sec >=7.0 4.2 E/e', med valente, TDI 14 --------- E', avg, TDI 4.6 cm/sec --------- E/e', avg, TDI (N) 12 <=14 LVOT Value Ref 07/13/2017 Diam, S 2.0 cm --------- Area 3.1 cm^2 --------- 3.1 Peak jermaine, S 0.96 m/sec --------- 0.87 VTI, S 21.6 cm --------- 16.6 Right ventricle Value Ref 07/13/2017 Pressure, S 21 mm Hg --------- Left atrium Value Ref 07/13/2017 AP dim, ES (N) 3.6 cm 2.7 - 3.8 3.5 AP dim index, ES (H) 2.5 cm/m^2 1.5 - 2.3 SI dim, A4C 4.7 cm --------- Area ES, A4C (N) 15 cm^2 <=20 Area/bsa ES, A4C 10.48 cm^2/m^2 --------- SI dim, A2C 5.2 cm --------- SI dim, shorter 4.7 cm --------- Vol, ES, 1-p A2C (N) 44 ml 22 - 52 Vol/bsa, ES, 1-p A2C (N) 30 ml/m^2 13 - 40 Vol, ES, 2-p 44 ml --------- 30 Vol/bsa, ES, 2-p (N) 30 ml/m^2 16 - 34 20 LA/Ao root ratio 1.09 --------- Aortic valve Value Ref 07/13/2017 Peak v, S 1.4 m/sec --------- 1.3 Mean v, S 0.81 m/sec --------- VTI, S 27.0 cm --------- 16.6 Mean grad, S 3 mm Hg --------- 3 Peak grad, S 8 mm Hg --------- 7 LVOT/AV, VTI ratio 0.8 --------- 1 CAL, VTI 2.5 cm^2 --------- 3.1 CAL/bsa, VTI 1.73 cm^2/m^2 --------- 2.11 LVOT/AV, Vpeak ratio 0.69 --------- 0.65 CAL, Vmax 2.2 cm^2 --------- 2.0 CAL/bsa, Vmax 1.5 cm^2/m^2 --------- 1.37 AR PHT 472 ms --------- Mitral valve Value Ref 07/13/2017 Mean v, D 0.48 m/sec --------- Peak E 0.55 m/sec --------- 0.36 Peak A 0.87 m/sec --------- 0.57 Decel time 239 ms --------- 88 Mean grad, D 1 mm Hg --------- Peak grad, D 4 mm Hg --------- Peak E/A ratio 0.6 --------- A-VTI 22.7 cm --------- Pulmonic valve Value Ref 07/13/2017 Peak v, S 0.89 m/sec --------- 1.13 Accel time 130 ms --------- Peak grad, S 3 mm Hg --------- Tricuspid valve Value Ref 07/13/2017 TR peak v (N) 1.7 m/sec <=2.8 Peak RV-RA grad, S 11 mm Hg --------- Aortic root Value Ref 07/13/2017 Root diam, 3.3 cm --------- Ascending aorta Value Ref 07/13/2017 AAo AP diam, S 3.1 cm --------- AAo AP diam/bsa, S 2.1 cm/m^2 --------- Systemic veins Value Ref 07/13/2017 Estimated RA pressure 10 mm Hg --------- Legend: (L) and (H) samina values outside specified reference range. (N) dickerson values inside specified reference range. Procedure data: Procedure information: A transthoracic echocardiogram was performed.Scanning was performed from the parasternal, apical, and subcostal acousticwindows. Transthoracic echocardiogram. Complete 2D, complete spectralDoppler, and color Doppler. Birthdate: Patient birthdate: 1950. Age:Patient is 74year(s) old. Sex: gender: female. Height: 152.4cm. 60in. Weight: 49.9kg. 110lb. Body mass index: 21.5kg/m^2. Body surfacearea: 1.45m^2. Study date: Study date: 01/24/2025. Study time: 09:54 AM. 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 [place] [address] PCP - General Family Practice 05/19/22 documented as of this encounter
--- OUTSIDE RECORDS SUMMARY | 2025-01-25 09:01 | XMS_ITS | Encounter Summary ---
Author Organization [facility] Address [address] [place] [address] Care Team Providers Care Building Coordinator Name Role Phone Vitaly Manzanares MD Primary Care Provider [phone] Encounter Details Date Type Department Care Team (Late st Contact Info) Description 02/07/2002 Outpatient Historical [facility] Internal Medicine [place] [id number] [place] [address] Gadiel Christensen MD [address] [place] [phone] Social History Tobacco Use Types Packs/Day Years Used Date Smoking Tobacco: Never Assessed Comments Unknown Sex and Gender Information Value Date Recorded Sex Assigned at Not on file Legal Sex Female 5:01 AM NUCLEAR EQUIPMENT DESIGN ENGINEER Gender Identity Not on file Sexual Orientation Not on file documented as of this encounter Plan of Treatment Upcoming Encounters Date Type Department Care Team (Late Contact Info) Description 04/24/2025 10:30 AM NUCLEAR EQUIPMENT DESIGN ENGINEER Office Visit [facility] Heart and Vascular At [address] [place] [address] Esteban Dueñas MD [address] [place] [address] [address] [place] [address] documented as of this encounter Visit Diagnoses Not on filedocumented in this encounter Care Teams Building Coordinator Relationship Specialty Start Date End Date Vitaly Manzanares MD [address] [place] [address] PCP - General Family Practice 05/19/22 documented as of this encounter
--- OUTSIDE RECORDS SUMMARY | 2025-01-25 09:01 | XMS_ITS | Encounter Summary ---
Author Organization [facility] Address [address] [place] [address] Care Team Providers Care Gis Programmer Name Role Phone Vitaly Manzanares MD Primary Care Provider [phone] Encounter Details Date Type Department Care Team (Late st Contact Info) Description 05/10/2002 Outpatient Historical [facility] Internal Medicine [place] [id number] [place] [address] Gadiel Christensen MD [address] [place] [phone] Social History Tobacco Use Types Packs/Day Years Used Date Smoking Tobacco: Never Assessed Comments Unknown Sex and Gender Information Value Date Recorded Sex Assigned at Not on file Legal Sex Female 5:01 AM PATENT AGENT Gender Identity Not on file Sexual Orientation Not on file documented as of this encounter Plan of Treatment Upcoming Encounters Date Type Department Care Team (Late Contact Info) Description 04/24/2025 10:30 AM PATENT AGENT Office Visit [facility] Heart and Vascular At [address] [place] [address] Esteban Dueñas MD [address] [place] [address] [address] [place] [address] documented as of this encounter Visit Diagnoses Not on filedocumented in this encounter Care Teams Gis Programmer Relationship Specialty Start Date End Date Vitaly Manzanares MD [address] [place] [address] PCP - General Family Practice 05/19/22 documented as of this encounter
--- OUTSIDE RECORDS SUMMARY | 2025-01-25 09:01 | XMS_ITS | Encounter Summary ---
Author Organization [facility] Address [address] [place] [address] Care Team Providers Care Nightclub Manager Name Role Phone Vitaly Manzanares MD Primary Care Provider [phone] Encounter Details Date Type Department Care Team (Late st Contact Info) Description 07/18/2001 Outpatient Historical [facility] Internal Medicine [place] [id number] [place] [address] Gadiel Christensen MD [address] [place] [phone] Social History Tobacco Use Types Packs/Day Years Used Date Smoking Tobacco: Never Assessed Comments Unknown Sex and Gender Information Value Date Recorded Sex Assigned at Not on file Legal Sex Female 5:01 AM WAREHOUSE SHIFT SUPERVISOR Gender Identity Not on file Sexual Orientation Not on file documented as of this encounter Plan of Treatment Upcoming Encounters Date Type Department Care Team (Late Contact Info) Description 04/24/2025 10:30 AM WAREHOUSE SHIFT SUPERVISOR Office Visit [facility] Heart and Vascular At [address] [place] [address] Esteban Dueñas MD [address] [place] [address] [address] [place] [address] documented as of this encounter Visit Diagnoses Not on filedocumented in this encounter Care Teams Nightclub Manager Relationship Specialty Start Date End Date Vitaly Manzanares MD [address] [place] [address] PCP - General Family Practice 05/19/22 documented as of this encounter
--- OUTSIDE RECORDS SUMMARY | 2025-01-25 09:01 | XMS_ITS | Encounter Summary ---
Author Organization [facility] Address [address] [place] [address] Care Team Providers Care Boat And Plant Utility Supervisor Name Role Phone Vitaly Manzanares MD Primary Care Provider [phone] Encounter Details Date Type Department Care Team (Late st Contact Info) Description 05/15/2002 Outpatient Historical [facility] Internal Medicine [address] [place] [address] Gadiel Christensen MD [address] [place] [id number] Social History Tobacco Use Types Packs/Day Years Used Date Smoking Tobacco: Never Assessed Comments Unknown Sex and Gender Information Value Date Recorded Sex Assigned at Not on file Legal Sex Female 5:01 AM PROFESSOR OF JOURNALISM Gender Identity Not on file Sexual Orientation Not on file documented as of this encounter Plan of Treatment Upcoming Encounters Date Type Department Care Team (Late Contact Info) Description 04/24/2025 10:30 AM PROFESSOR OF JOURNALISM Office Visit [facility] Heart and Vascular At [address] [place] [address] Esteban Dueñas MD [address] [place] [address] [address] [place] [address] documented as of this encounter Visit Diagnoses Not on filedocumented in this encounter Care Teams Boat And Plant Utility Supervisor Relationship Specialty Start Date End Date Vitaly Manzanares MD [address] [place] [address] PCP - General Family Practice 05/19/22 documented as of this encounter
--- OUTSIDE RECORDS SUMMARY | 2025-01-25 09:01 | XMS_ITS | Encounter Summary ---
Author Organization [facility] Address [address] [place] [address] Care Team Providers Care Receptionist Doctor'S Office Name Role Phone Vitaly Manzanares MD Primary Care Provider [phone] Encounter Details Date Type Department Care Team (Late st Contact Info) Description 06/09/2002 Outpatient Historical [facility] Internal Medicine [address] [place] [address] Gadiel Christensen MD [address] [place] [phone] Social History Tobacco Use Types Packs/Day Years Used Date Smoking Tobacco: Never Assessed Comments Unknown Sex and Gender Information Value Date Recorded Sex Assigned at Not on file Legal Sex Female 5:01 AM RESISTANCE WELDER Gender Identity Not on file Sexual Orientation Not on file documented as of this encounter Plan of Treatment Upcoming Encounters Date Type Department Care Team (Late Contact Info) Description 04/24/2025 10:30 AM RESISTANCE WELDER Office Visit [facility] Heart and Vascular At [address] [place] [address] Esteban Dueñas MD [address] [place] [address] [address] [place] [address] documented as of this encounter Visit Diagnoses Not on filedocumented in this encounter Care Teams Receptionist Doctor'S Office Relationship Specialty Start Date End Date Vitaly Manzanares MD [address] [place] [address] PCP - General Family Practice 05/19/22 documented as of this encounter
--- OUTSIDE RECORDS SUMMARY | 2025-01-25 09:01 | XMS_ITS | Encounter Summary ---
Author Organization [facility] Address [address] [place] [address] Care Team Providers Care Strategies Analyst Name Role Phone Vitaly Manzanares MD Primary Care Provider [phone] Encounter Details Date Type Department Care Team (Late st Contact Info) Description 12/30/2001 Outpatient Historical [facility] Internal Medicine [place] [address] [place] [address] Esteban Otto MD [address] [place] [address] Social History Tobacco Use Types Packs/Day Years Used Date Smoking Tobacco: Never Assessed Comments Unknown Sex and Gender Information Value Date Recorded Sex Assigned at Not on file Legal Sex Female 5:01 AM ZOO VETERINARIAN Gender Identity Not on file Sexual Orientation Not on file documented as of this encounter Plan of Treatment Upcoming Encounters Date Type Department Care Team (Late Contact Info) Description 04/24/2025 10:30 AM ZOO VETERINARIAN Office Visit [facility] Heart and Vascular At [address] [place] [address] Esteban Dueñas MD [address] [place] [address] [address] [place] [address] documented as of this encounter Visit Diagnoses Not on filedocumented in this encounter Care Teams Strategies Analyst Relationship Specialty Start Date End Date Vitaly Manzanares MD [address] [place] [address] PCP - General Family Practice 05/19/22 documented as of this encounter
--- OUTSIDE RECORDS SUMMARY | 2025-01-25 09:01 | XMS_ITS | Encounter Summary ---
Author Organization [facility] Address [address] [place] [address] Care Team Providers Care Regenerator Operator Name Role Phone Vitaly Manzanares MD Primary Care Provider [phone] Encounter Details Date Type Department Care Team (Late st Contact Info) Description 05/05/2002 Outpatient Historical [facility] Gadiel Andrade MD [address] [place] [phone] SCREENING MAMM-MAILG NEOPL-OTHER (Primary Dx) Social History Tobacco Use Types Packs/Day Years Used Date Smoking Tobacco: Never Assessed Comments Unknown Sex and Gender Information Value Date Recorded Sex Assigned at Not on file Legal Sex Female 5:01 AM RESIDENT CARE SPEC Gender Identity Not on file Sexual Orientation Not on file documented as of this encounter Plan of Treatment Upcoming Encounters Date Type Department Care Team (Late st Contact Info) Description 04/24/2025 10:30 AM RESIDENT CARE SPEC Office Visit [facility] Heart and Vascular At [address] [address] [facility] [address] [place] [address] Esteban Dueñas MD [address] [place] [address] [address] [place] [address] documented as of this encounter Visit Diagnoses Diagnosis Other screening mammogram- Primary documented in this encounter Care Teams Regenerator Operator Relationship Specialty Start Date End Date Vitaly Manzanares MD [address] [place] [address] PCP - General Family Practice 05/19/22 documented as of this encounter
--- OUTSIDE RECORDS SUMMARY | 2025-01-25 09:01 | XMS_ITS | Encounter Summary ---
Author Organization [facility] Address [address] [place] [address] Care Team Providers Care Manager Background Name Role Phone Vitaly Manzanares MD Primary Care Provider [phone] Encounter Details Date Type Department Care Team (Late st Contact Info) Description 05/27/2001 Outpatient Historical [facility] [place] [facility] Internal Medicine [address] [place] [address] Gadiel Christensen MD [address] [place] [phone] Social History Tobacco Use Types Packs/Day Years Used Date Smoking Tobacco: Never Assessed Comments Unknown Sex and Gender Information Value Date Recorded Sex Assigned at Not on file Legal Sex Female 5:01 AM STRIP ROLLER Gender Identity Not on file Sexual Orientation Not on file documented as of this encounter Plan of Treatment Upcoming Encounters Date Type Department Care Team (Late Contact Info) Description 04/24/2025 10:30 AM STRIP ROLLER Office Visit [facility] [place] [facility] Heart and Vascular At [address] [place] [address] Esteban Dueñas MD [address] [place] [address] [address] [place] [address] documented as of this encounter Visit Diagnoses Not on filedocumented in this encounter Care Teams Manager Background Relationship Specialty Start Date End Date Vitaly Manzanares MD [address] [place] [address] PCP - General Family Practice 05/19/22 documented as of this encounter
--- OUTSIDE RECORDS SUMMARY | 2025-01-25 09:01 | XMS_ITS | Encounter Summary ---
Author Organization [facility] Address [address] [place] [address] Care Team Providers Care Doctor Of Nurse Anesthesia Name Role Phone Vitaly Manzanares MD Primary Care Provider [phone] Encounter Details Date Type Department Care Team (Late st Contact Info) Description 10/19/2002 Outpatient Historical [facility] Internal Medicine [address] [place] [address] Gadiel Christensen MD [address] [place] [phone] Social History Tobacco Use Types Packs/Day Years Used Date Smoking Tobacco: Never Assessed Comments Unknown Sex and Gender Information Value Date Recorded Sex Assigned at Not on file Legal Sex Female 5:01 AM FIRE OFFICER Gender Identity Not on file Sexual Orientation Not on file documented as of this encounter Plan of Treatment Upcoming Encounters Date Type Department Care Team (Late Contact Info) Description 04/24/2025 10:30 AM FIRE OFFICER Office Visit [facility] Heart and Vascular At [address] [place] [address] Esteban Dueñas MD [address] [place] [address] [address] [place] [address] documented as of this encounter Visit Diagnoses Not on filedocumented in this encounter Care Teams Doctor Of Nurse Anesthesia Relationship Specialty Start Date End Date Vitaly Manzanares MD [address] [place] [address] PCP - General Family Practice 05/19/22 documented as of this encounter
--- OUTSIDE RECORDS SUMMARY | 2025-01-25 09:01 | XMS_ITS | Encounter Summary ---
Author Organization [facility] Address [address] [place] [address] Care Team Providers Care Manager Money Name Role Phone Vitaly Manzanares MD Primary Care Provider [phone] Encounter Details Date Type Department Care Team (Late st Contact Info) Description 03/30/2001 Outpatient Historical [facility] Internal Medicine [address] [place] [address] Gadiel Christensen MD [address] [place] [phone] Social History Tobacco Use Types Packs/Day Years Used Date Smoking Tobacco: Never Assessed Comments Unknown Sex and Gender Information Value Date Recorded Sex Assigned at Not on file Legal Sex Female 5:01 AM BOWLING BALL WEIGHER AND PACKER Gender Identity Not on file Sexual Orientation Not on file documented as of this encounter Plan of Treatment Upcoming Encounters Date Type Department Care Team (Late Contact Info) Description 04/24/2025 10:30 AM BOWLING BALL WEIGHER AND PACKER Office Visit [facility] Heart and Vascular At [address] [place] [address] Esteban Dueñas MD [address] [place] [address] 20[address] [place] [address] documented as of this encounter Visit Diagnoses Not on filedocumented in this encounter Care Teams Manager Money Relationship Specialty Start Date End Date Vitaly Manzanares MD [address] [place] [address] PCP - General Family Practice 05/19/22 documented as of this encounter
--- OUTSIDE RECORDS SUMMARY | 2025-01-25 09:01 | XMS_ITS | Encounter Summary ---
Author Organization [facility] Address [address] [place] [address] Care Team Providers Care Mixer Crane Operator Name Role Phone Vitaly Manzanares MD Primary Care Provider [phone] Encounter Details Date Type Department Care Team (Late st Contact Info) Description 04/19/2001 Outpatient Historical [facility] [place] [facility] Internal Medicine [address] [place] [address] Gadiel Christensen MD [address] [place] [phone] Social History Tobacco Use Types Packs/Day Years Used Date Smoking Tobacco: Never Assessed Comments Unknown Sex and Gender Information Value Date Recorded Sex Assigned at Not on file Legal Sex Female 5:01 AM INSIDE BARREL LATHE OPERATOR Gender Identity Not on file Sexual Orientation Not on file documented as of this encounter Plan of Treatment Upcoming Encounters Date Type Department Care Team (Late Contact Info) Description 04/24/2025 10:30 AM INSIDE BARREL LATHE OPERATOR Office Visit [facility] Heart and Vascular At [address] [place] [address] Esteban Dueñas MD [address] [place] [address] [address] [place] [address] documented as of this encounter Visit Diagnoses Not on filedocumented in this encounter Care Teams Mixer Crane Operator Relationship Specialty Start Date End Date Vitaly Manzanares MD [address] [place] [address] PCP - General Family Practice 05/19/22 documented as of this encounter
--- OUTSIDE RECORDS SUMMARY | 2025-01-25 09:01 | XMS_ITS | Encounter Summary ---
Author Organization [facility] Address [address] [place] [address] Care Team Providers Care Calcine Furnace Tender Name Role Phone Vitaly Manzanares MD Primary Care Provider [phone] Encounter Details Date Type Department Care Team (Late st Contact Info) Description 11/07/2001 Outpatient Historical [facility] Internal Medicine [address] [place] [address] Gadiel Christensen MD [address] [place] [phone] Social History Tobacco Use Types Packs/Day Years Used Date Smoking Tobacco: Never Assessed Comments Unknown Sex and Gender Information Value Date Recorded Sex Assigned at Not on file Legal Sex Female 5:01 AM ALGEBRAIST Gender Identity Not on file Sexual Orientation Not on file documented as of this encounter Plan of Treatment Upcoming Encounters Date Type Department Care Team (Late Contact Info) Description 04/24/2025 10:30 AM ALGEBRAIST Office Visit [facility] Heart and Vascular At [address] [place] [address] Esteban Dueñas MD [address] [place] [address] [address] [place] [address] documented as of this encounter Visit Diagnoses Not on filedocumented in this encounter Care Teams Calcine Furnace Tender Relationship Specialty Start Date End Date Vitaly Manzanares MD [address] [place] [address] PCP - General Family Practice 05/19/22 documented as of this encounter
--- OUTSIDE RECORDS SUMMARY | 2025-01-25 09:02 | XMS_ITS | Clinical Summary ---
Author Organization [facility] Address [address] [place] [address] Phone Care Team Providers Care Lamp Shade Sewer Name Role Phone Vitaly Manzanares MD Primary Care Provider [phone] Medications ISOSORBIDE DINITRATE PO Take by mouth. [...] Encounters Date Type Department Care Team Description 12/25/2024 1:30 PM CDT Outpatient Clinic Visit [facility] [address] [place] [address] Marcell Joyner, VER[place] Adjustment disorder with depressed mood (Primary Dx) Discharge Disposition: Discharged to home or Selfcare 12/25/2024 Travel 12/11/2024 10:30 AM CDT [facility] [address] [place] [address] Marcell Joyner LCSW Adjustment disorder with depressed mood (Primary Dx) Discharge Disposition: Discharged to home or Selfcare 12/11/2024 Travel 11/21/2024 9:15 AM CDT [facility] [address] [place] [address] Marcell Joyner LCSW Adjustment disorder with depressed mood (Primary Dx) Discharge Disposition: Discharged to home or Selfcare 11/21/2024 Travel from Last 3 Months Family History [...] Department Care Team (Latest Contact Info) Description 01/29/2025 3:00 PM VACUUM PAN TENDER [facility] [address] [place] [address] Marcell Joyner LCSW [address] [place] [address] Discharge Disposition: Discharged to home or Selfcare Health Maintenance Due Date Last Done Comments Hepatitis C Virus (HCV) Screening 1950 TdaP Immunization 1950 Cologuard 1994 Colonoscopy 1994 Colorectal Cancer Screening 1994 Immunochemical Fecal Occult Blood 1994 Zoster Immunization (1 of 2) 12/21/1999 Pneumococcal Immunization (5 0+ years) (2 of 2 - PCV) 01/10/2011 01/10/2010 DEXA Bone Density 06/27/2022 06/27/2020 Influenza Immunization (#1) 2024 SARS-COV-2 Immunization (1 - 2024- season) 2024 Respiratory Syncytial Virus (RSV) Immunization (Adult) (1 - 1-dose 75+ series) 2024 Medicare Subsequent AWV G0439 01/10/2025 01/11/2024 Mammogram Discontinued 10/15/2021, 10/15/2021 Medicare Initial AWV G0438 Discontinued 12/22/2022 Hepatitis [...] Author Behavioral Health Behavioral Health On track(2024 2:16 PM CDT) Yes Marcell Joyner, CUSTOMER SERVICE SALES ASSOCIATE Note: I need help coping with all my physical health issues and caregiver stress along with physical limitations from my heart. Goal/Objective: Improve coping skills. Anticipated Time Frame for Goal Completion: 6 months Goal Reviewed with: patient Readiness to change: Ready to change Department associated with goal: [facility] Steps to [...] sessions Insurance MEDICARE C [employer]ET[employer] Care Teams Lamp Shade Sewer Relationship Specialty Start Date End Date Vitaly Manzanares MD [address] [address] PCP - General Family Medicine 04/21/24
--- OUTSIDE RECORDS SUMMARY | 2025-01-25 09:02 | XMS_ITS | Encounter Summary ---
Author Organization [facility] Address [address] [place] [address] Care Team Providers Care Alum Operator Name Role Phone Vitaly Manzanares MD Primary Care Provider [phone] Encounter Details Date Type Department Care Team (Late st Contact Info) Description 01/26/2006 Outpatient Historical [facility] Internal Medicine [address] [place] [address] Gadiel Christensen MD [address] [place] [phone] Social History Tobacco Use Types Packs/Day Years Used Date Smoking Tobacco: Never Assessed Comments Unknown Sex and Gender Information Value Date Recorded Sex Assigned at Not on file Legal Sex Female 5:01 AM DOUGH MIXER OPERATOR Gender Identity Not on file Sexual Orientation Not on file documented as of this encounter Plan of Treatment Upcoming Encounters Date Type Department Care Team (Late Contact Info) Description 04/24/2025 10:30 AM DOUGH MIXER OPERATOR Office Visit [facility] Heart and Vascular At [address] [place] [address] Esteban Dueñas MD [address] [place] [address] [address] [place] [address] documented as of this encounter Visit Diagnoses Not on filedocumented in this encounter Care Teams Alum Operator Relationship Specialty Start Date End Date Vitaly Manzanares MD [address] [place] [address] PCP - General Family Practice 05/19/22 documented as of this encounter
--- OUTSIDE RECORDS SUMMARY | 2025-01-25 09:02 | XMS_ITS | Encounter Summary ---
Author Organization [facility] Address [address] [place] [address] Care Team Providers Care Durable Medical Equipment Repairer Name Role Phone Vitaly Manzanares MD Primary Care Provider [phone] Encounter Details Date Type Department Care Team (Late st Contact Info) Description 02/26/2003 Outpatient Historical [facility] Internal Medicine [address] [place] [address] Gadiel Christensen MD [address] [place] [phone] Social History Tobacco Use Types Packs/Day Years Used Date Smoking Tobacco: Never Assessed Comments Unknown Sex and Gender Information Value Date Recorded Sex Assigned at Not on file Legal Sex Female 5:01 AM ENROLLMENT MANAGEMENT DIRECTOR Gender Identity Not on file Sexual Orientation Not on file documented as of this encounter Plan of Treatment Upcoming Encounters Date Type Department Care Team (Late Contact Info) Description 04/24/2025 10:30 AM ENROLLMENT MANAGEMENT DIRECTOR Office Visit [facility] Heart and Vascular At [address] [place] [address] Esteban Dueñas MD [address] [place] [address] [address] [place] [address] documented as of this encounter Visit Diagnoses Not on filedocumented in this encounter Care Teams Durable Medical Equipment Repairer Relationship Specialty Start Date End Date Vitaly Manzanares MD [address] [place] [address] PCP - General Family Practice 05/19/22 documented as of this encounter
--- OUTSIDE RECORDS SUMMARY | 2025-01-25 09:02 | XMS_ITS | Encounter Summary ---
Author Organization [facility] Address [address] [place] [address] Care Team Providers Care Food Technician Name Role Phone Vitaly Manzanares MD Primary Care Provider [phone] Encounter Details Date Type Department Care Team (Late st Contact Info) Description 07/09/2004 Outpatient Historical [facility] Gadiel Christensen MD [address] [place] [phone] Social History Tobacco Use Types Packs/Day Years Used Date Smoking Tobacco: Never Assessed Comments Unknown Sex and Gender Information Value Date Recorded Sex Assigned at Not on file Legal Sex Female 5:01 AM ACID BLOWER Gender Identity Not on file Sexual Orientation Not on file documented as of this encounter Plan of Treatment Upcoming Encounters Date Type Department Care Team (Late st Contact Info) Description 04/24/2025 10:30 AM ACID BLOWER Office Visit [facility] Heart and Vascular At [facility] [address] [facility] [address] [place] [address] Esteban Dueñas MD [address] [facility] [address] [place] [address] documented as of this encounter Visit Diagnoses Not on filedocumented in this encounter Care Teams Food Technician Relationship Specialty Start Date End Date Vitaly Manzanares MD [address] [place] [address] PCP - General Family Practice 05/19/22 documented as of this encounter
--- OUTSIDE RECORDS SUMMARY | 2025-01-25 09:02 | XMS_ITS | Encounter Summary ---
Author Organization [facility] Address [address] [place] [address] Care Team Providers Care Lens Polisher Name Role Phone Vitaly Manzanares MD Primary Care Provider [phone] Encounter Details Date Type Department Care Team (Late st Contact Info) Description 05/05/2004 Outpatient Historical [facility] Internal Medicine [address] [place] [address] Gadiel Christensen MD [address] [place] [phone] Social History Tobacco Use Types Packs/Day Years Used Date Smoking Tobacco: Never Assessed Comments Unknown Sex and Gender Information Value Date Recorded Sex Assigned at Not on file Legal Sex Female 5:01 AM DRYWALL FINISHING FOREMAN Gender Identity Not on file Sexual Orientation Not on file documented as of this encounter Plan of Treatment Upcoming Encounters Date Type Department Care Team (Late Contact Info) Description 04/24/2025 10:30 AM DRYWALL FINISHING FOREMAN Office Visit [facility] Heart and Vascular At [address] [place] [address] Esteban Dueñas MD [address] [place] [address] [address] [place] [address] documented as of this encounter Visit Diagnoses Not on filedocumented in this encounter Care Teams Lens Polisher Relationship Specialty Start Date End Date Vitaly Manzanares MD [address] [place] [address] PCP - General Family Practice 05/19/22 documented as of this encounter
--- OUTSIDE RECORDS SUMMARY | 2025-01-25 09:02 | XMS_ITS | Encounter Summary ---
Author Organization [facility] Address [address] [place] [address] Care Team Providers Care Environmental Engineer Name Role Phone Vitaly Manzanares MD Primary Care Provider Encounter Details Date Type Department Care Team (Late st Contact Info) Description 03/09/2006 Outpatient Historical [facility]) Gadiel Christensen MD [address] [place] [phone] Essential Hypertension, Benign (Primary Dx) Social History Tobacco Use Types Packs/Day Years Used Date Smoking Tobacco: Never Assessed Comments Unknown Sex and Gender Information Value Date Recorded Sex Assigned at Not on file Legal Sex Female 5:01 AM YARN WEIGHER Gender Identity Not on file Sexual Orientation Not on file documented as of this encounter Plan of Treatment Upcoming Encounters Date Type Department Care Team (Late st Contact Info) Description 04/24/2025 10:30 AM YARN WEIGHER Office Visit [facility] Heart and Vascular At [address] [place] [address] Esteban Dueñas MD [address] [place] [address] [address] [place] [address] documented as of this encounter Procedures Procedure Name Priority Date/Time Associated Diagnosis Comments TSH REFLEXIVE Routine 03/09/2006 9:00 AM YARN WEIGHER CBC WITH DIFFERENTIAL Routine 03/09/2006 9:00 AM YARN WEIGHER CBC WITH DIFFERENTIAL Routine 03/09/2006 9:00 AM YARN WEIGHER CANCER ANTIGEN 125 Routine 03/09/2006 9: 00 AM YARN WEIGHER MAGNESIUM LEVEL Routine 03/09/2006 9:00 AM YARN WEIGHER LIPID PANEL Routine 03/09/2006 9:00 AM YARN WEIGHER COMPREHENSIVE METABOLIC PANEL Routine 03/09/2006 9:00 AM YARN WEIGHER documented in this encounter Results * CBC WITH DIFFERENTIAL (03/09/2006 9:00 AM YARN WEIGHER) NEUTROPHILS 54 45 - 70 % INTERFAC [...] 0.20 K/uL INTERFACE SYSTEM 03/09/2006 9:00 AM YARN WEIGHER us Gadiel Christensen MD HEMATOLOGY ORDERABLES Final Re sult INTERFACE SYSTEM Refer to clinic/hospital department * (ABNORMAL) CBC WITH DIFFERENTIAL (03/09/2006 9:00 AM YARN WEIGHER) WBC 5.4 4.0 - 9.8 K/uL INTERFACE [...] 12.4 fL INTERFACE SYSTEM 03/09/2006 9:00 AM YARN WEIGHER Gadiel Christensen MD HEMATOLOGY ORDERABLES Final Re sult Performing Organization Address [facility] Phone Number INTERFACE SYSTEM Refer to clinic/hospital department * TSH REFLEXIVE (03/09/2006 9:00 AM YARN WEIGHER) TSH 1.82 0.27 - 4.20 uU/mL INTERFACE SYSTEM 03/09/2006 9:00 AM YARN WEIGHER Gadiel Christensen MD CHEMISTRY ORDERABLES Final Res ult Performing Organization Address [facility] Phone Number INTERFACE SYSTEM Refer to clinic/hospital department * MAGNESIUM LEVEL (03/09/2006 9:00 AM YARN WEIGHER) MAGNESIUM 1.8 1.5 - 2.5 mg/dL INTERFACE SYSTEM 03/09/2006 9:00 AM YARN WEIGHER Gadiel Christensen MD CHEMISTRY ORDERABLES Final Res ult Performing Organization Address [facility] Phone Number INTERFACE SYSTEM Refer to clinic/hospital department * CANCER ANTIGEN 125 (03/09/2006 9:00 AM YARN WEIGHER) CA 125 8 <=34 U/mL INTERFACE SYSTEM [...] a cancer screening test. 03/09/2006 9:00 AM YARN WEIGHER Gadiel Christensen MD CHEMISTRY ORDERABLES Final Res ult Performing Organization Address [facility] Co de Phone Number INTERFACE SYSTEM Refer to clinic/hospital department * (ABNORMAL) LIPID PANEL (03/09/2006 9:00 AM YARN WEIGHER) CHOLESTEROL 223(H) 100 - 199 mg/dL INTERFACE SYSTEM TRIGLYCERIDE 130 10 - 149 mg/dL INTERFACE SYSTEM HDL 83(H) 40 - 59 mg/dL INTERFACE SYSTEM CHOL/HDL RATIO 2.7 2.0 - 5.0 INTER FACE SYSTEM LDL CALCULATED 114(H) <=99 mg/dL INTERFACE SYSTEM LIPID PANEL COMMENT See Below INTERFACE SYSTEM Comment: The adult ATP and pediatric NCEP classifications for lipids are available on the [facility] Intranet at: [email or web address] Select: Lab Policies and Procedures Select: Reference Ranges - Lipids 03/09/2006 9:00 AM YARN WEIGHER Gadiel Christensen MD CHEMISTRY ORDERABLES Final Res ult Performing Organization Address [facility] de Phone Number INTERFACE SYSTEM Refer to clinic/hospital department * COMPREHENSIVE METABOLIC PANEL (03/09/2006 9:00 AM YARN WEIGHER) GLUCOSE 93 65 - 99 mg/dL INTERFACE [...] and non- Americans is available on the [facility] [employer]et at: [email or web address] Select: Lab Policies and Procedures Select: Reference Ranges - GFR 03/09/2006 9:00 AM YARN WEIGHER us Gadiel Christensen MD CHEMISTRY ORDERABLES Final Res ult INTERFACE SYSTEM Refer to clinic/hospital department documented in this encounter Visit Diagnoses Diagnosis Essential hypertension, benign- Primary documented in this encounter Care Teams Environmental Engineer Relationship Specialty Start Date End Date Vitaly Manzanares MD [address] [place] [phone] PCP - General Family Practice 05/19/22 documented as of this encounter
--- OUTSIDE RECORDS SUMMARY | 2025-01-25 09:02 | XMS_ITS | Encounter Summary ---
Author Organization [facility] Address [address] [place] [address] Care Team Providers Care Head Of Physics Name Role Phone Vitaly Manzanares MD Primary Care Provider [phone] Encounter Details Date Type Department Care Team (Late st Contact Info) Description 06/22/2005 Outpatient Historical [facility] Internal Medicine [address] [place] [address] Gadiel Christensen MD [address] [place] [phone] Social History Tobacco Use Types Packs/Day Years Used Date Smoking Tobacco: Never Assessed Comments Unknown Sex and Gender Information Value Date Recorded Sex Assigned at Not on file Legal Sex Female 5:01 AM ROLL GRINDER OPERATOR Gender Identity Not on file Sexual Orientation Not on file documented as of this encounter Plan of Treatment Upcoming Encounters Date Type Department Care Team (Late Contact Info) Description 04/24/2025 10:30 AM ROLL GRINDER OPERATOR Office Visit [facility] Heart and Vascular At [address] [place] [address] Esteban Dueñas MD [address] [place] [address] [address] [place] [address] documented as of this encounter Visit Diagnoses Not on filedocumented in this encounter Care Teams Head Of Physics Relationship Specialty Start Date End Date Vitaly Manzanares MD [address] [place] [address] PCP - General Family Practice 05/19/22 documented as of this encounter
--- OUTSIDE RECORDS SUMMARY | 2025-01-25 09:02 | XMS_ITS | Clinical Summary ---
Author Organization [facility] Address [facility] [place] [address] Care Team Providers Care Team Leader/Research Psychologist Name Role Phone Esteban Casanova MD Primary [...] file Legal Sex Female 1:00 PM EXERCISE EQUIPMENT SPECIALIST Gender Identity Not on file Sexual [...] Td Vaccines ( 1 - Tdap) 1968 Zoster Vaccines (1 of 2) 12/21/1999 Annual Medicare Wellness Visit 2014 Dexa Scan (General) 2014 COVID-19 Vaccine (2024-2 6 season) 2024 Influenza Adult (#1) 2024 RSV Immunization or 60+ Years (1 - 1-dose 75+ series) 2024 Hepatitis A Vaccines Aged Out No long er eligible based on patient's age to complete this topic Meningococcal B Vaccine Aged Out No l onger eligible based on patient's age to complete this topic Meningococcal Vaccine Aged Out No kurt vanessa eligible based on patient's age to complete this topic RSV Immunizations Under 20 Months Aged Out No longer eligible based on patient's age to complete this topic Medical Devices Implanted Type Area Mid Teacher Device Identifier Shelf Expiration Date Model / Serial / Lot Iol [employer] Zcboo - [id number] Implanted:Qty: 1 on 05/22/2019 by Mike Madrigal MD at [facility] Lens [employer] 07/18/2021 [id number] / / [id number] Iol [employer] Zcboo - [id number] Implanted:Qty: 1 on 11/27/2019 by Mike Madrigal MD at [facility] Lens Right: Eye [employer] 09/25/2023 ZCB00 / [id number] / Explanted Type Area Mid Teacher Device Identifier Shelf Expiration Date Model / Serial / Lot 3 Coronary Stents Insurance [employer] MEDICARE Care Teams Team Leader/Research Psychologist Relationship Specialty [place] [address] [place] [phone] PCP - General INTERNAL MEDICINE 05/16/19
--- OUTSIDE RECORDS SUMMARY | 2025-01-25 09:02 | XMS_ITS | Encounter Summary ---
Author Organization [facility] Address [address] [place] [address] Care Team Providers Care Meal Temperer Name Role Phone Vitaly Manzanares MD Primary Care Provider [phone] Encounter Details Date Type Department Care Team (Latest Contact Info) Description 02/23/2003 Outpatient Historical [facility] CARDIOPULMONARY ChristensenGadiel MD [address] [place] [phone] CHEST PAIN NOS (Primary Dx) Social History Tobacco Use Types Packs/Day Years Used Date Smoking Tobacco: Never Assessed Comments Unknown Sex and Gender Information Value Date Recorded Sex Assigned at Not on file Legal Sex Female 5:01 AM PRESS ASSISTANT AND FEEDER Gender Identity Not on file Sexual Orientation Not on file documented as of this encounter Plan of Treatment Upcoming Encounters Date Type Department Care Team (Late st Contact Info) Description 04/24/2025 10:30 AM PRESS ASSISTANT AND FEEDER Office Visit [facility] Heart and Vascular At [address] [place] [address] Esteban Dueñas MD [address] [place] [address] [address] [place] [address] documented as of this encounter Visit Diagnoses Diagnosis Chest pain, unspecified- Primary documented in this encounter Care Teams Meal Temperer Relationship Specialty Start Date End Date Vitaly Manzanares MD [address] [place] [address] PCP - General Family Practice 05/19/22 documented as of this encounter
--- OUTSIDE RECORDS SUMMARY | 2025-01-25 09:02 | XMS_ITS | Encounter Summary ---
Author Organization [facility] Address [address] [place] [address] Care Team Providers Care Seating And Mobility Technologist Name Role Phone Vitaly Manzanares MD Primary Care Provider [phone] Encounter Details Date Type Department Care Team (Late st Contact Info) Description 01/15/2003 Outpatient Historical [facility] Internal Medicine [address] [place] [address] Gadiel Christensen MD [address] [place] [phone] Social History Tobacco Use Types Packs/Day Years Used Date Smoking Tobacco: Never Assessed Comments Unknown Sex and Gender Information Value Date Recorded Sex Assigned at Not on file Legal Sex Female 5:01 AM SPRINKLER WORKER Gender Identity Not on file Sexual Orientation Not on file documented as of this encounter Plan of Treatment Upcoming Encounters Date Type Department Care Team (Late Contact Info) Description 04/24/2025 10:30 AM SPRINKLER WORKER Office Visit [facility] Heart and Vascular At [address] [place] [address] Esteban Dueñas MD [address] [place] [address] [address] [place] [address] documented as of this encounter Visit Diagnoses Not on filedocumented in this encounter Care Teams Seating And Mobility Technologist Relationship Specialty Start Date End Date Vitaly Manzanares MD [address] [place] [address] PCP - General Family Practice 05/19/22 documented as of this encounter
--- OUTSIDE RECORDS SUMMARY | 2025-01-25 09:02 | XMS_ITS | Encounter Summary ---
Author Organization [facility] Address [address] [place] [address] Care Team Providers Care Spray Machine Operator Name Role Phone Vitaly Manzanares MD Primary Care Provider [phone] Encounter Details Date Type Department Care Team (Late st Contact Info) Description 12/21/2004 Outpatient Historical [facility] Gadiel Christensen MD [address] [place] [phone] Social History Tobacco Use Types Packs/Day Years Used Date Smoking Tobacco: Never Assessed Comments Unknown Sex and Gender Information Value Date Recorded Sex Assigned at Not on file Legal Sex Female 5:01 AM PROFESSIONAL APPLICATION DESIGNER Gender Identity Not on file Sexual Orientation Not on file documented as of this encounter Plan of Treatment Upcoming Encounters Date Type Department Care Team (Late st Contact Info) Description 04/24/2025 10:30 AM PROFESSIONAL APPLICATION DESIGNER Office Visit [facility] Heart and Vascular At [facility] [address] [place] [address] Esteban Dueñas MD [address] [facility] [address] [place] [address] documented as of this encounter Visit Diagnoses Not on filedocumented in this encounter Care Teams Spray Machine Operator Relationship Specialty Start Date End Date Vitaly Manzanares MD [address] [place] [phone] PCP - General Family Practice 05/19/22 documented as of this encounter
--- OUTSIDE RECORDS SUMMARY | 2025-01-25 09:02 | XMS_ITS | Encounter Summary ---
Author Organization [facility] Address [address] [place] [address] Care Team Providers Care Reliability Manager Name Role Phone Vitaly Manzanares MD Primary Care Provider [phone] Encounter Details Date Type Department Care Team (Late st Contact Info) Description 03/27/2004 Outpatient Historical [facility] MRI DEPT Gadiel Christensen MD [address] [place] [phone] CHRONIC SINUSITIS NOS (Primary Dx) Social History Tobacco Use Types Packs/Day Years Used Date Smoking Tobacco: Never Assessed Comments Unknown Sex and Gender Information Value Date Recorded Sex Assigned at Not on file Legal Sex Female 5:01 AM DISTRIBUTION OPERATION SUPERVISOR Gender Identity Not on file Sexual Orientation Not on file documented as of this encounter Plan of Treatment Upcoming Encounters Date Type Department Care Team (Late st Contact Info) Description 04/24/2025 10:30 AM DISTRIBUTION OPERATION SUPERVISOR Office Visit [facility] Heart and Vascular At [address] [place] [address] Esteban Dueñas MD [address] [place] [address] [address] [place] [address] documented as of this encounter Visit Diagnoses Diagnosis Unspecified sinusitis (chronic)- Primary documented in this encounter Care Teams Reliability Manager Relationship Specialty Start Date End Date Vitaly Manzanares MD [address] [place] [address] PCP - General Family Practice 05/19/22 documented as of this encounter
--- OUTSIDE RECORDS SUMMARY | 2025-01-25 09:02 | XMS_ITS | Encounter Summary ---
Author Organization [facility] Address [address] [place] [address] Care Team Providers Care Natural Resources Manager Name Role Phone Vitaly Maznanares MD Primary Care Provider [phone] Encounter Details Date Type Department Care Team (Late st Contact Info) Description 02/13/2005 Outpatient Historical [facility] Internal Medicine [id number] [place] [address] Gadiel Christensen MD [address] [place] [phone] Social History Tobacco Use Types Packs/Day Years Used Date Smoking Tobacco: Never Assessed Comments Unknown Sex and Gender Information Value Date Recorded Sex Assigned at Not on file Legal Sex Female 5:01 AM WINDMILL TECHNICIAN Gender Identity Not on file Sexual Orientation Not on file documented as of this encounter Plan of Treatment Upcoming Encounters Date Type Department Care Team (Late Contact Info) Description 04/24/2025 10:30 AM WINDMILL TECHNICIAN Office Visit [facility] Heart and Vascular At [address] [place] [address] Esteban Dueñas MD [address] [place] [address] [address] [place] [address] documented as of this encounter Visit Diagnoses Not on filedocumented in this encounter Care Teams Natural Resources Manager Relationship Specialty Start Date End Date Vitaly Manzanares MD [address] [place] [address] PCP - General Family Practice 05/19/22 documented as of this encounter
--- OUTSIDE RECORDS SUMMARY | 2025-01-25 09:02 | XMS_ITS | Encounter Summary ---
Author Organization [facility] Address [address] [place] [address] Care Team Providers Care Wine Bottle Inspector Name Role Phone Vitaly Manzanares MD Primary Care Provider [phone] Encounter Details Date Type Department Care Team (Late st Contact Info) Description 05/19/2005 Outpatient Historical [facility] Internal Medicine [address] [place] [address] Gadiel Christensen MD [address] [place] [phone] Social History Tobacco Use Types Packs/Day Years Used Date Smoking Tobacco: Never Assessed Comments Unknown Sex and Gender Information Value Date Recorded Sex Assigned at Not on file Legal Sex Female 5:01 AM GREENS PICKER Gender Identity Not on file Sexual Orientation Not on file documented as of this encounter Plan of Treatment Upcoming Encounters Date Type Department Care Team (Late Contact Info) Description 04/24/2025 10:30 AM GREENS PICKER Office Visit [facility] Heart and Vascular At [address] [place] [address] Esteban Dueñas MD [address] [place] [address] [address] [place] [address] documented as of this encounter Visit Diagnoses Not on filedocumented in this encounter Care Teams Wine Bottle Inspector Relationship Specialty Start Date End Date Vitaly Manzanares MD [address] [place] [address] PCP - General Family Practice 05/19/22 documented as of this encounter
--- OUTSIDE RECORDS SUMMARY | 2025-01-25 09:02 | XMS_ITS | Encounter Summary ---
Author Organization [facility] Address [address] [place] [address] Care Team Providers Care Spine Specialist Name Role Phone Vitaly Manzanares MD Primary Care Provider [phone] Encounter Details Date Type Department Care Team (Latest Contact Info) Description 06/07/2004 Outpatient Historical [facility] Gadiel Christensen MD [address] [place] [phone] DISC DEGENERATION NOS (Primary Dx) Social History Tobacco Use Types Packs/Day Years Used Date Smoking Tobacco: Never Assessed Comments Unknown Sex and Gender Information Value Date Recorded Sex Assigned at Not on file Legal Sex Female 5:01 AM CRIMINAL RECORDS TECHNICIAN Gender Identity Not on file Sexual Orientation Not on file documented as of this encounter Plan of Treatment Upcoming Encounters Date Type Department Care Team (Late st Contact Info) Description 04/24/2025 10:30 AM CRIMINAL RECORDS TECHNICIAN Office Visit [facility] Heart and Vascular At [facility] [address] [facility] [address] [place] [address] Esteban Dueñas MD [address] [place] [address] [address] [place] [address] documented as of this encounter Visit Diagnoses Diagnosis Degeneration of intervertebral disc, site unspecified- Primary documented in this encounter Care Teams Spine Specialist Relationship Specialty Start Date End Date Vitaly Manzanares MD [address] [place] [address] PCP - General Family Practice 05/19/22 documented as of this encounter
--- OUTSIDE RECORDS SUMMARY | 2025-01-25 09:02 | XMS_ITS | Encounter Summary ---
Author Organization [facility] Address [address] [place] [address] Care Team Providers Care Plasma Processing Centrifuge Operator Name Role Phone Vitaly Manzanares MD Primary Care Provider [phone] Encounter Details Date Type Department Care Team (Latest Contact Info) Description 05/06/2004 Outpatient Historical [facility] Gadiel Christensen MD [address] [place] [phone] DISC DISPLACEMENT NOS (Primary Dx) Social History Tobacco Use Types Packs/Day Years Used Date Smoking Tobacco: Never Assessed Comments Unknown Sex and Gender Information Value Date Recorded Sex Assigned at Not on file Legal Sex Female 5:01 AM AVIATION ENGINEER Gender Identity Not on file Sexual Orientation Not on file documented as of this encounter Plan of Treatment Upcoming Encounters Date Type Department Care Team (Late st Contact Info) Description 04/24/2025 10:30 AM AVIATION ENGINEER Office Visit [facility] Heart and Vascular At [facility] [address] [facility] [address] [place] [address] Esteban Dueñas MD [address] [place] [address] [address] [place] [address] documented as of this encounter Visit Diagnoses Diagnosis Displacement of intervertebral disc, site unspecified, without myelopathy- Primary documented in this encounter Care Teams Plasma Processing Centrifuge Operator Relationship Specialty Start Date End Date Vitaly Manzanares MD [address] [place] [address] PCP - General Family Practice 05/19/22 documented as of this encounter
--- OUTSIDE RECORDS SUMMARY | 2025-01-25 09:02 | XMS_ITS | Encounter Summary ---
Author Organization [facility] Address [address] [place] [address] Care Team Providers Care Mud Mixer Operator Name Role Phone Vitaly Manzanares MD Primary Care Provider [phone] Encounter Details Date Type Department Care Team (Latest Contact Info) Description 10/02/2005 Outpatient Historical [facility] [place] (DRAW SITE) Gadiel Christensen MD [address] [place] [phone] Hypopotassemia (Primary Dx) Social History Tobacco Use Types Packs/Day Years Used Date Smoking Tobacco: Never Assessed Comments Unknown Sex and Gender Information Value Date Recorded Sex Assigned at Not on file Legal Sex Female 5:01 AM TRANSMISSION SUPERINTENDENT Gender Identity Not on file Sexual Orientation Not on file documented as of this encounter Plan of Treatment Upcoming Encounters Date Type Department Care Team (Late st Contact Info) Description 04/24/2025 10:30 AM TRANSMISSION SUPERINTENDENT Office Visit [facility] Heart and Vascular At [address] [place] [address] Esteban Dueñas MD [address] [place] [address] [address] [place] [address] documented as of this encounter Procedures Procedure [...] INTERFACE SYSTEM Comment: [facility] [address] [place] [address] DEMAR BUCK MD 10/02/2005 3:26 PM CDT Gadiel Christensen MD CHEMISTRY ORDERABLES COM Final Result Performing Organization Address City/State/[facility] Co de Phone Number INTERFACE SYSTEM Refer to clinic/hospital department * MAGNESIUM LEVEL (10/02/2005 3:26 PM CDT) MAGNESIUM 1.7 1.5 - 2.5 mg/dL INTERFACE SYSTEM 10/02/2005 3:26 PM CDT Gadiel Christensen MD CHEMISTRY ORDERABLES Final Res ult Performing Organization Address [facility] Co de Phone Number INTERFACE SYSTEM [...] ORDERABLES Final Res ult Performing Organization Address City/State/[facility] Co de Phone Number INTERFACE SYSTEM Refer to clinic/hospital department documented in this encounter Visit Diagnoses Diagnosis Hypopotassemia- Primary documented in this encounter Care Teams Mud Mixer Operator Relationship Specialty Start Date End Date Vitaly Manzanares MD [address] [place] [address] PCP - General Family Practice 05/19/22 documented as of this encounter
--- OUTSIDE RECORDS SUMMARY | 2025-01-25 09:02 | XMS_ITS | Encounter Summary ---
Author Organization [facility] Address [address] [place] [address] Care Team Providers Care Bottom Buffer Name Role Phone Vitaly Manzanares MD Primary Care Provider [phone] Encounter Details Date Type Department Care Team (Late st Contact Info) Description 01/24/2025 Results Follow-Up [facility] Heart and Vascular At [address] [place] [address] Farida Greene RN ECHO COMPLETE - CONTRAST AND STRAIN IF INDICATED Social History Tobacco Use Types Packs/Day Years [...] on file Legal Sex Female 5:01 AM LANDSCAPE ARCHITECT AND PLANNER Gender Identity Not on file Sexual Orientation Not on file Occupation Industry Job Start Date Job End Date Not on file Not on file Not on file Not on file documented as of this encounter Plan of Treatment Upcoming Encounters Date Type Department Care Team (Late st Contact Info) Description 04/24/2025 10:30 AM LANDSCAPE ARCHITECT AND PLANNER Office Visit [facility] Heart and Vascular At [address] [place] [address] Esteban Dueñas MD [address] [facility] [address] [place] [address] documented as of this encounter Visit Diagnoses Not on filedocumented in this encounter Care Teams Bottom Buffer Relationship Specialty Start Date End Date Vitaly Manzaanres MD [address] [place] [address] PCP - General Family Practice 05/19/22 documented as of this encounter
--- OUTSIDE RECORDS SUMMARY | 2025-01-25 09:02 | XMS_ITS | Encounter Summary ---
Author Organization [facility] Address [address] [place] [address] Care Team Providers Care Chief Nurse Executive Name Role Phone Vitaly Manzanares MD Primary Care Provider [phone] Encounter Details Date Type Department Care Team (Late st Contact Info) Description 06/15/2003 Outpatient Historical [facility] Internal Medicine [address] [place] [address] Gadiel Christensen MD [address] [place] [id number] Social History Tobacco Use Types Packs/Day Years Used Date Smoking Tobacco: Never Assessed Comments Unknown Sex and Gender Information Value Date Recorded Sex Assigned at Not on file Legal Sex Female 5:01 AM SAUSAGE INSPECTOR Gender Identity Not on file Sexual Orientation Not on file documented as of this encounter Plan of Treatment Upcoming Encounters Date Type Department Care Team (Late Contact Info) Description 04/24/2025 10:30 AM SAUSAGE INSPECTOR Office Visit [facility] Heart and Vascular At [address] [place] [address] Esteban Dueñas MD [address] [place] [address] [address] [place] [address] documented as of this encounter Visit Diagnoses Not on filedocumented in this encounter Care Teams Chief Nurse Executive Relationship Specialty Start Date End Date Vitaly Manzanares MD [address] [place] [address] PCP - General Family Practice 05/19/22 documented as of this encounter
--- OUTSIDE RECORDS SUMMARY | 2025-01-25 09:02 | XMS_ITS | Encounter Summary ---
Author Organization [facility] Address [address] [place] [address] Care Team Providers Care Clinical Business Analyst Name Role Phone Vitaly Manzanares MD Primary Care Provider [phone] Encounter Details Date Type Department Care Team (Late st Contact Info) Description 08/19/2005 Outpatient Historical [facility] Internal Medicine [address] [place] [address] Gadiel Christensen MD [address] [place] [id number] Social History Tobacco Use Types Packs/Day Years Used Date Smoking Tobacco: Never Assessed Comments Unknown Sex and Gender Information Value Date Recorded Sex Assigned at Not on file Legal Sex Female 5:01 AM INSURANCE RISK ANALYST Gender Identity Not on file Sexual Orientation Not on file documented as of this encounter Plan of Treatment Upcoming Encounters Date Type Department Care Team (Late Contact Info) Description 04/24/2025 10:30 AM INSURANCE RISK ANALYST Office Visit [facility] Heart and Vascular At [address] [place] [address] Esteban Dueñas MD [address] [place] [address] [address] [place] [address] documented as of this encounter Visit Diagnoses Not on filedocumented in this encounter Care Teams Clinical Business Analyst Relationship Specialty Start Date End Date Vitaly Manzanares MD [address] [place] [address] PCP - General Family Practice 05/19/22 documented as of this encounter
--- OUTSIDE RECORDS SUMMARY | 2025-01-25 09:02 | XMS_ITS | Encounter Summary ---
Author Organization [facility] Address [address] [place] [address] Care Team Providers Care Rheologist Name Role Phone Vitaly Manzanares MD Primary Care Provider [phone] Encounter Details Date Type Department Care Team (Late st Contact Info) Description 06/28/2006 Outpatient Historical [facility] Internal Medicine [address] [place] [address] Gadiel Christensen MD [address] [place] [phone] Social History Tobacco Use Types Packs/Day Years Used Date Smoking Tobacco: Never Assessed Comments Unknown Sex and Gender Information Value Date Recorded Sex Assigned at Not on file Legal Sex Female 5:01 AM SIZE CUTTER Gender Identity Not on file Sexual Orientation Not on file documented as of this encounter Plan of Treatment Upcoming Encounters Date Type Department Care Team (Late Contact Info) Description 04/24/2025 10:30 AM SIZE CUTTER Office Visit [facility] Heart and Vascular At [address] [place] [address] Esteban Dueñas MD [address] [place] [address] [address] [place] [address] documented as of this encounter Visit Diagnoses Not on filedocumented in this encounter Care Teams Rheologist Relationship Specialty Start Date End Date Vitaly Manzanares MD [address] [place] [address] PCP - General Family Practice 05/19/22 documented as of this encounter
--- OUTSIDE RECORDS SUMMARY | 2025-01-25 09:02 | XMS_ITS | Encounter Summary ---
Author Organization [facility] Address [address] [place] [address] Care Team Providers Care Park Maintainer Name Role Phone Vitaly Manzanares MD Primary Care Provider [phone] Encounter Details Date Type Department Care Team (Late st Contact Info) Description 11/19/2004 Outpatient Historical [facility] Gadiel Christensen MD [address] [place] [phone] CERVICALGIA (Primary Dx) Social History Tobacco Use Types Packs/Day Years Used Date Smoking Tobacco: Never Assessed Comments Unknown Sex and Gender Information Value Date Recorded Sex Assigned at Not on file Legal Sex Female 5:01 AM HOUSECALLS NURSE Gender Identity Not on file Sexual Orientation Not on file documented as of this encounter Plan of Treatment Upcoming Encounters Date Type Department Care Team (Late st Contact Info) Description 04/24/2025 10:30 AM HOUSECALLS NURSE Office Visit [facility] Heart and Vascular At [address] [place] [address] Esteban Dueñas MD [address] [place] [address] [address] [place] [address] documented as of this encounter Visit Diagnoses Diagnosis Cervicalgia- Primary documented in this encounter Care Teams Park Maintainer Relationship Specialty Start Date End Date Vitaly Manzanares MD [address] [place] [address] PCP - General Family Practice 05/19/22 documented as of this encounter
--- OUTSIDE RECORDS SUMMARY | 2025-01-25 09:02 | XMS_ITS | Encounter Summary ---
Author Organization [facility] Address [address] [place] [address] Care Team Providers Care Tanning Wheel Filler Name Role Phone Vitaly Manzanares MD Primary Care Provider [phone] Encounter Details Date Type Department Care Team (Late st Contact Info) Description 06/04/2005 Outpatient Historical [facility] Internal Medicine [address] [place] [address] Gadiel Christensen MD [address] [place] [phone] Social History Tobacco Use Types Packs/Day Years Used Date Smoking Tobacco: Never Assessed Comments Unknown Sex and Gender Information Value Date Recorded Sex Assigned at Not on file Legal Sex Female 5:01 AM FINANCIAL SERVICES ASSOCIATE Gender Identity Not on file Sexual Orientation Not on file documented as of this encounter Plan of Treatment Upcoming Encounters Date Type Department Care Team (Late Contact Info) Description 04/24/2025 10:30 AM FINANCIAL SERVICES ASSOCIATE Office Visit [facility] Heart and Vascular At [address] [place] [address] Esteban Dueñas MD [address] [place] [address] [address] [place] [address] documented as of this encounter Visit Diagnoses Not on filedocumented in this encounter Care Teams Tanning Wheel Filler Relationship Specialty Start Date End Date Vitaly Manzanares MD [address] [place] [address] PCP - General Family Practice 05/19/22 documented as of this encounter
--- OUTSIDE RECORDS SUMMARY | 2025-01-25 09:02 | XMS_ITS | Encounter Summary ---
Author Organization [facility] Address [address] [place] [address] Care Team Providers Care Laundry Machine Tender Name Role Phone Vitaly Manzanares MD Primary Care Provider [phone] Encounter Details Date Type Department Care Team (Late st Contact Info) Description 01/25/2003 Outpatient Historical [facility] Internal Medicine [address] [place] [address] Gadiel Christensen MD [address] [place] [phone] Social History Tobacco Use Types Packs/Day Years Used Date Smoking Tobacco: Never Assessed Comments Unknown Sex and Gender Information Value Date Recorded Sex Assigned at Not on file Legal Sex Female 5:01 AM SUPERVISOR TAPING Gender Identity Not on file Sexual Orientation Not on file documented as of this encounter Plan of Treatment Upcoming Encounters Date Type Department Care Team (Late Contact Info) Description 04/24/2025 10:30 AM SUPERVISOR TAPING Office Visit [facility] Heart and Vascular At [address] [place] [address] Esteban Dueñas MD [address] [place] [address] [address] [place] [address] documented as of this encounter Visit Diagnoses Not on filedocumented in this encounter Care Teams Laundry Machine Tender Relationship Specialty Start Date End Date Vitaly Manzanares MD [address] [place] [address] PCP - General Family Practice 05/19/22 documented as of this encounter
--- OUTSIDE RECORDS SUMMARY | 2025-01-25 09:02 | XMS_ITS | Encounter Summary ---
Author Organization [facility] Address [address] [place] [address] Care Team Providers Care Clinical Coordinator Name Role Phone Vitaly Manzanares MD Primary Care Provider [phone] Encounter Details Date Type Department Care Team (Late st Contact Info) Description 11/27/2003 Outpatient Historical [facility] Internal Medicine [address] [place] [address] Gadiel Christensen MD [address] [place] [phone] Social History Tobacco Use Types Packs/Day Years Used Date Smoking Tobacco: Never Assessed Comments Unknown Sex and Gender Information Value Date Recorded Sex Assigned at Not on file Legal Sex Female 5:01 AM VISUAL AND STOCK ASSOCIATE Gender Identity Not on file Sexual Orientation Not on file documented as of this encounter Plan of Treatment Upcoming Encounters Date Type Department Care Team (Late Contact Info) Description 04/24/2025 10:30 AM VISUAL AND STOCK ASSOCIATE Office Visit [facility] Heart and Vascular At [address] [place] [address] Esteban Dueñas MD [address] [place] [address] [address] [place] [address] documented as of this encounter Visit Diagnoses Not on filedocumented in this encounter Care Teams Clinical Coordinator Relationship Specialty Start Date End Date Vitaly Manzanares MD [address] [place] [address] PCP - General Family Practice 05/19/22 documented as of this encounter
--- OUTSIDE RECORDS SUMMARY | 2025-01-25 09:02 | XMS_ITS | Encounter Summary ---
Author Organization [facility] Address [address] [place] [address] Care Team Providers Care Soft Drink Powder Mixer Name Role Phone Vitaly Manzanares MD Primary Care Provider [phone] Encounter Details Date Type Department Care Team (Late st Contact Info) Description 08/29/2003 Outpatient Historical [facility] Internal Medicine [address] [place] [address] Gadiel Christensen MD [address] [place] [phone] Social History Tobacco Use Types Packs/Day Years Used Date Smoking Tobacco: Never Assessed Comments Unknown Sex and Gender Information Value Date Recorded Sex Assigned at Not on file Legal Sex Female 5:01 AM PLUGGING MACHINE OPERATOR Gender Identity Not on file Sexual Orientation Not on file documented as of this encounter Plan of Treatment Upcoming Encounters Date Type Department Care Team (Late Contact Info) Description 04/24/2025 10:30 AM PLUGGING MACHINE OPERATOR Office Visit [facility] Heart and Vascular At [address] [place] [address] Esteban Dueñas MD [address] [place] [address] [address] [place] [address] documented as of this encounter Visit Diagnoses Not on filedocumented in this encounter Care Teams Soft Drink Powder Mixer Relationship Specialty Start Date End Date Vitaly Manzanares MD [address] [place] [address] PCP - General Family Practice 05/19/22 documented as of this encounter
--- OUTSIDE RECORDS SUMMARY | 2025-01-25 09:02 | XMS_ITS | Encounter Summary ---
Author Organization [facility] Address [address] [place] [address] Care Team Providers Care Shoe Lining Fitter Name Role Phone Vitaly Manzanares MD Primary Care Provider [phone] Encounter Details Date Type Department Care Team (Late st Contact Info) Description 12/28/2003 Outpatient Historical [facility] Gadiel Bardales MD [address] [place] [phone] SCREENING MAMM-MAILG NEOPL-OTHER (Primary Dx) Social History Tobacco Use Types Packs/Day Years Used Date Smoking Tobacco: Never Assessed Comments Unknown Sex and Gender Information Value Date Recorded Sex Assigned at Not on file Legal Sex Female 5:01 AM COMPENSATION ASSOCIATE Gender Identity Not on file Sexual Orientation Not on file documented as of this encounter Plan of Treatment Upcoming Encounters Date Type Department Care Team (Late st Contact Info) Description 04/24/2025 10:30 AM COMPENSATION ASSOCIATE Office Visit [facility] Heart and Vascular At [address] [place] [address] Esteban Dueñas MD [address] [place] [address] [address] [place] [address] documented as of this encounter Visit Diagnoses Diagnosis Other screening mammogram- Primary documented in this encounter Care Teams Shoe Lining Fitter Relationship Specialty Start Date End Date Vitaly Manzanares MD [address] [place] [address] PCP - General Family Practice 05/19/22 documented as of this encounter
--- OUTSIDE RECORDS SUMMARY | 2025-01-25 09:02 | XMS_ITS | Encounter Summary ---
Author Organization [facility] Address [address] [place] [address] Care Team Providers Care Gaming Surveillance Observer Name Role Phone Vitaly Manzanares MD Primary Care Provider [phone] Encounter Details Date Type Department Care Team (Late st Contact Info) Description 10/30/2003 Outpatient Historical [facility] Internal Medicine [address] [place] [address] Gadiel Christensen MD [address] [place] [phone] Social History Tobacco Use Types Packs/Day Years Used Date Smoking Tobacco: Never Assessed Comments Unknown Sex and Gender Information Value Date Recorded Sex Assigned at Not on file Legal Sex Female 5:01 AM MECHANICAL ENGINEERING ADVISOR Gender Identity Not on file Sexual Orientation Not on file documented as of this encounter Plan of Treatment Upcoming Encounters Date Type Department Care Team (Late Contact Info) Description 04/24/2025 10:30 AM MECHANICAL ENGINEERING ADVISOR Office Visit [facility] Heart and Vascular At [address] [place] [address] Esteban Dueñas MD [address] [place] [address] [address] [place] [address] documented as of this encounter Visit Diagnoses Not on filedocumented in this encounter Care Teams Gaming Surveillance Observer Relationship Specialty Start Date End Date Vitaly Manzanares MD [address] [place] [address] PCP - General Family Practice 05/19/22 documented as of this encounter
--- OUTSIDE RECORDS SUMMARY | 2025-01-25 09:02 | XMS_ITS | Clinical Summary ---
Author Organization [facility] Address [address] [place] [address] Care Team Providers Care Qa Developer Name Role Phone Vitaly Manzanares MD Primary Care Provider [phone] Allergies Active Allergy Reactions Criticality Noted Date [...] Breath/Wheezing,Rash High 02/24/2016 Naratriptan Rash Low 04/22/2007 Jyjhbtozrnak-Hit-Mzyxirfu Unknown 04/22/2007 Oseltamivir Phosphate Rash Low 04/22/2007 Penicillins Unknown 04/22/2007 As a child Pneumococcal Vaccine Anaphylaxis,Rash High 1 Prochlorperazine Edisylate Unknown 8 Propoxyphene Rash Low 04/22/2007 [place] Anaphylaxis,Shortnes s of Breath/Wheezing High 02/24/2016 Sulfa [...] Not taking Active fluticasone (FLONASE) 50 mcg/spray [place], Suspension USE TWO SPRAYS IN EACH NOSTRIL ONCE DAILY. 48 Gram 3 018 Active Additional Information Patient taking differently: USE TWO SPRAYS IN EACH NOSTRIL ONCE DAILYPRN, Reported on 01/17/2025 albuterol HFA 90 mcg inhaler Take 2 Puffs by inhalation every 4 hours as needed for Wheezing. 8.5 Gram 3 018 Active acetaminophen-caf feine-butalbital (FIORICET) 325-40-50 mg tabletIndications :Migraine with aura and without status migrainosus, not intractable Take 1 Tablet by mouth every 4 hours as needed for Headaches. 100 Tablet Active Additional Information Patient not taking.Reported on 01/17/2025 EPINEPHrine (EPIPEN) 0.3 mg/0.3 mL Auto-InjectorIndi cations:Aspirin [...] Daily Amount: 4 Tablets 20 Tablet Active calcium-cholecalc iferol 500 mg(1,250mg) -400 unit [...] 1 Tablet by mouth every 7 days. Active coenzyme Q10 (Co Q-10) 200 mg CapsuleIndication s:Coronary artery disease involving [place] heart with unstable angina pectoris, unspecified vessel or lesion type (CMS/HCC) Take 1 Capsule (200 mg) by mouth daily. 100 Capsule 3 Active Additional Information Patient not taking.Reported on 01/17/2025 ranolazine ER (RANEXA) 500 mg Extended Release [...] 3 025 Active lisinopriL (PRINIVIL) 2.5 mg tabletIndications :Essential hypertension Take 1 Tablet (2.5 mg) by mouth 2 times daily. 180 Tablet 3 Active carvediloL (COREG) 12.5 mg tablet Take 1 Tablet (12.5 mg) by mouth 2 times daily. 180 Tablet 3 025 Active nitroglycerin (NITROSTAT) 0.4 mg Tablet, Sublingual Dissolve 1 tab under tongue, every 5 min, as needed for chest pain, for a total of 3 tabs. If pain persists, call 911. 25 Tablet 1 Active clopidogreL (PLAVIX) 75 mg Tablet TAKE 1 TABLET BY MOUTH EVERY DAY 90 Tablet 1 Active predniSONE (DELTASONE) 50 mg tablet Take 1 Tablet (50 mg) by mouth see administration instructions. Take 1 tablet in AM and PM on 12/26. Take 1 tablet in AM on 12/27. 3 Tablet Active Additional Information Patient not taking.Reported on 01/17/2025 isosorbide mononitrate (IMDUR) 120 mg Extended Release 24 hour tablet TAKE 1 TABLET (120 MG) BY MOUTH DAILY IN THE MORNING. 90 Tablet 3 025 Active isosorbide mononitrate (IMDUR) 120 mg Extended Release 24 hour tablet TAKE 1 TABLET (120 MG) BY MOUTH DAILY IN THE MORNING. 90 Tablet 3 024 2024 Discontinued Active Problems Patient Care Coordination No te Formatting of this note migh t be different from the original. 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 06/09/2016 Aspirin [...] Encounters Date Type Department Care Team Description 01/24/2025 9:37 AM FURNITURE PAINTER - 01/24/2025 11:59 PM FURNITURE PAINTER Hospital Encounter [facility] [place] [address] [place] [phone] Richard Dueñas MD Arrived Discharge Disposition: Home or Self Care 01/24/2025 Results Follow-Up [facility] [address] [place] [address] Farida Greene RN ECHO COMPLETE - CONTRAST AND STRAIN IF INDICATED 01/21/2025 Refill [facility] [address] [place] [address] Richard Dueñas MD 01/17/2025 10:15 AM FURNITURE PAINTER Office Visit [facility] [address] [place] [address] Richard Dueñas MD 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 (Primary Dx); S/P coronary artery stents placement, 02/26/16, 11/13/16, 05/19/22, 01/05, 02/23/24; Pure hypercholesterolemia; Essential hypertension; Allergic reaction to dye, subsequent encounter 12/27/2024 10:01 AM CDT - 12/27/2024 10:54 AM CDT Surgery [facility] Hearing Aid Fitter [address] [place] [address] Conor Grimm MD Left heart cath 12/27/2024 7:11 AM CDT - 12/27/2024 2:24 PM CDT Hospital Encounter [facility] Interventional Care [address] [place] [address] Conor Grimm MD Atherosclerosis of [place] coronary artery of [place] heart, unspecified whether angina present Discharge Disposition: Home or Self Care 12/27/2024 7:10 AM CDT - 12/27/2024 11:59 PM CDT Hospital Encounter [facility] Laboratory Services [address] [facility] [address] [place] [address] Conor Grimm MD Discharge Disposition: Home or Self Care 12/26/2024 External Device Data STL ABSTRACTION Provider, Abstract 12/25/2024 Abstract [facility] [address] [address] [place] [address] Richard Dueñas MD 12/18/2024 9:45 AM CDT Video Visit [facility] [address] [place] [address] Richard Dueñas MD 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 (Primary Dx); Left ventricular systolic dysfunction, NYHA class 2; S/P coronary artery stents placement, 02/26/16, 11/13/16, 05/19/22, 01/05, 02/23/24; Shortness of breath; Allergic reaction to dye, subsequent encounter; Aspirin allergy; Chronic fatigue; Essential hypertension; Pure hypercholesterolemia 12/18/2024 Prep for Surgery [facility] [address] [place] [address] Conor Grimm MD 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 (Primary Dx); Chronic systolic congestive heart failure (CMS/HCC); Atherosclerosis of [place] coronary artery of [place] heart without angina pectoris 12/18/2024 Telephone [facility] [address] [place] [address] Richard Dueñas MD needs cath 11/24/2024 Abstract [facility] [place] [address] [address] [place] [address] Richard Dueñas MD 11/23/2024 Refill [facility] [address] [place] [address] Richard Dueñas MD 11/22/2024 Telephone [facility] [address] [place] [address] Richard Dueñas MD monitor results 10/31/2024 Abstract [facility] [place] [address] [place] [address] Richard Dueñas MD from Last 3 Months Immunizations Immunization Administration Dates Next Due (PNEUMOVAX 23)(50 YRS UP) PN EUMOCOCCAL POLYSACCHARIDE (PPV23) 0.5 ML, IM 01/10/2010 Family History Medical History Relation Name Comments High Cholesterol Brother Hypertension Brother Heart Disease Father Hypertension Father Heart Disease Mother Marci Nguyen CAD Hypertension Mother Marci Nguyen Other Mother Marci Nugyen urticaria Relation Name Status Comments Brother Alive Father Mother Marci Ngueyn Alive Social History Tobacco Use Types Packs/Day [...] on file Legal Sex Female 5:01 AM FURNITURE PAINTER Gender Identity Not on file Sexual Orientation Not on file Occupation Industry Job Start Date Job End Date Not on file Not on file Not on file Not on file Last Filed Vital Signs Vital Sign Reading Time Taken Comments Blood Pressure 98/60 01/17/2025 9:54 AM FURNITURE PAINTER Pulse 88 01/17/2025 9:54 AM FURNITURE PAINTER Temperature 36.7 C (98 F) 12/27/2024 7:29 AM CDT Respiratory Rate 15 12/27/2024 2:00 PM CDT Oxygen Saturation 97% 01/17/2025 9:54 AM FURNITURE PAINTER Inhaled Oxygen Concentration - - Weight 49.9 kg (110 lb) 01/17/2025 9:54 AM FURNITURE PAINTER Height 152.4 cm (5') 01/17/2025 9:54 AM FURNITURE PAINTER Body Mass Index 21.48 01/17/2025 9:54 AM FURNITURE PAINTER Plan of Treatment Upcoming Encounters Date Type Department Care Team (Late st Contact Info) Description 04/24/2025 10:30 AM FURNITURE PAINTER Office Visit [facility] [address] [place] [address] Richard Dueñas MD [address] [place] [address] [address] [place] [address] Health Maintenance Due Date Last [...] 06/27/2020, 2020 Medical Devices Implanted Type Area Commissions Coordinator Device Identifier Shelf Expiration Date Model / Serial / Lot Adriana- 016 Implanted:Qty : 1 on 02/26/2016 by Rony Deleon MD Stent Coronary [employer] 02/11/2017 / / [id number] Description:bare metal stent placed in the obtuse marginal coronary artery number 1 Adriana- 016 Implanted:Qty : 1 on 02/26/2016 by Rony Deleon MD Stent Coronary [employer] 05/12/2018 / / [id number] Description:bare metal stent placed in the right coronary artery Adriana- 016 Implanted:Qty : 1 on 02/26/2016 by Rony Deleon MD Stent Coronary [employer] 04/14/2017 / / [id number] Description:bare metal stent placed in the right coronary artery Promus Premier- 017 Implanted:03/2016 by Arslan Gale MD (Quantity not on file) Stent [employer] 09/28/2017 / / [id number] Description:OM1 Promus Premier- 017 Implanted:03/2016 by Arslan Gale MD (Quantity not on file) Stent [employer] 09/28/2017 / / [id number] Description:RCA Promus Premier- 017 Implanted:03/2016 by Arslan Gale MD (Quantity not on file) Stent [employer] 02/14/2018 / / [id number] Description:rca Stent Synergy Xd 3.0x12mm Evrlms Elut [id number] - [id number] Implanted:Qty : 1 on 05/19/2022 by Conor Grimm MD at [facility] Stent Right: Coronary Beauty Noted [employer] 12/15/2023 [id number] / / [id number] Stent Dany [place] Temo 3.0x18mm Rx [id number] - [id number] Implanted:Qty : 1 on 12/17/2023 by Conor Grimm MD at [facility] Stent Right: Coronary [employer] [id number] 02/03/2026 [id number] / / [id number] Stent [place] Temo 3.86k94rk Rx [id number] - [id number] Implanted:Qty : 1 on 02/23/2024 by Conor Grimm MD at [facility] Stent N/A: Coronary [employer] [id number] 04/26/2026 [id number] 15UX / / [id number] Procedures Procedure Name Priority Date/Time Associated Diagnosis Comments ECHO COMPLETE Routine 01/24/2025 10:31 AM FURNITURE PAINTER 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 CORONARY PRESSURE WIRE Routine 12/27/2024 10:27 AM CDT Atherosclerosis of [place] coronary artery of [place] heart, unspecified whether angina present Chronic systolic (congestive) heart failure (CMS/HCC) Coronary artery disease involving [place] coronary artery of [place] heart, unspecified whether angina present LEFT HEART CATH Routine 12/27/2024 10:27 AM CDT Atherosclerosis of [place] coronary artery of [place] heart, unspecified whether angina present Chronic systolic (congestive) heart failure (CMS/HCC) Coronary artery disease involving [place] coronary artery of [place] heart, unspecified whether angina present MOBILE CARDIAC OUTPATIENT TELEMETRY Routine 11/08/2024 5:00 AM CDT Near syncope XR DEXA BONE DENSITY AXIAL 1 OR MORE SITES Routine 06/27/2020 Postmenopausal COLON CANCER SCREEN, STOOL DNA Routine 10/17/2018 12:16 PM CDT Screening for colon cancer from Last 3 Months or Most Recently Relevant to Health Maintenance Results * ECHO COMPLETE - CONTRAST AND STRAIN IF INDICATED (01/24/2025 10:31 AM FURNITURE PAINTER) EJECTION FRACTION 60 INTERFACE SYSTEM 01/24/2025 9:54 AM FURNITURE PAINTER Narrative INTERFACE SYSTEM - 01/24/2025 11:00 AM FURNITURE PAINTER [address] [place] [address] [email or web address] [email or web address] Echocardiogram Patient: Jermaine Nguyen Study ID: [id number] Gender: F : 1950 Age: 74 Race: ASHLEY Height 152.4cm Study Date: 01/24/2025 Weight: 49.9kg Access. #: [id number] BP: *Referring Physician:* Richard Dueñas M.D., John M.D. *Ordering Physician:* Richard uDeñas M.D. accounts receivable associate: Nurse: STUDY CONCLUSIONS: SUMMARY: - Left ventricle: [...] --------- Area 3.1 cm^2 --------- 3.1 Peak jeramine, S 0.96 m/sec --------- 0.87 VTI, S [...] Prepared and Electronically Authenticated Steve De Jesus [id number]:22 Procedure Note Steve De Jesus MD - 01/24/[address] [place] [address] [email or web address] [email or web address] Patient: Jermaine Nguyen Study ID: [id number] Gender: F : 1950 Age: 74 Race: ASHLEY Height 152.4cm Study Date: 01/24/2025 Weight: 49.9kg Access. #: [id number] BP: *Referring Physician:Richard Tariq M.D., John M.D. *Ordering Physician:Richard Tariq M.D. accounts receivable associate: Nurse: STUDY CONCLUSIONS: SUMMARY: - Left ventricle: [...] Prepared and Electronically Authenticated Steve De Jesus [id number]:00:22 us Richard Dueñas MD ORDERABLES Final Result INTERFACE SYSTEM Refer to clinic/hospital department * LEFT HEART CATH, CORONARY PRESSURE WIRE (12/27/2024 10:27 AM CDT) 12/27/2024 9:28 AM CDT Narrative [facility] - 12/27/2024 11:29 AM CDT SUMMARY: - Non-flow limiting focal (mild) restenosis of mid RCA (many prior stents/layers) per IFR assessment today - does not need revascularization and I don't think causing her symptoms - Also non-flow limiting IFR assessment of prox-mid LAD and LCx/OM system (totally normal values) - Patent large OM2 stents (2 layers) and rest of RCA stents - Normal LV filling pressure and unremarkable aortic valve gradient RECOMMENDATIONS: TR band removal per protocol Discharge Doesn't need repeat PTCA/PCI and certainly not CABG I think her symptoms of late are not anginal/coronary. ? Rhythm issue vs labile HTN vs non-cardiac ? No med changes today statin and other home meds to continue Rec followup with Dr. Dueñas regularly as per usual Conor Grimm MD [facility] ([facility]) [address] [facility] [address] [place] [address] Procedure Details CARDIAC CATHETERIZATION CORONARY ANGIOGRAM IFR: Proximal LAD Proximal LCx and into large OM2 Mid RCA Access: R radial artery Hemostasis: compression band Indications: increased BLANDON/CP, Hx PCI. Many RCA PCI August and Dec 2023 most recently AUC: Indications: New Onset Angina <= 2 months, Worsening Angina, and Suspected CAD Chest Pain Symptom Assessment: Typical Angina Cardiovascular Instability: No AUC Medications: Antiarrhythmic Agent: No Aspirin: Yes Beta Ale: Yes Ca Channel Ale: Yes Long Acting Nitrate: Yes Non-Statin: Yes Ranolazine: Yes Statin: Yes Stress Testing Performed Non invasive testing not performed Heart Failure: No PROCEDURE DETAILS After informed consent, prepping the patient in a sterile fashion, and administering light conscious sedation, we locally anesthetized the skin over the right radial artery and placed a 6 [place]uv[place] sheath via the modified Seldinger technique. We gave intra-arterial Verapamil and intravenous heparin. We used a 0.035 inch wire for catheter exchanges and a Keven catheter for selective angiography of the right and left coronaries independently as well as crossing the aortic valve performing left ventricular pressure assessment and aortic valve pullback. There were no complications, and we used a radial compression band at the end of the case for hemostasis. Please see IFR details below. Results: Left main: no notable disease LAD: proximal fairly calcified vessel wall with 30% tandem and ~ 20% focal mid LAD lesion - slightly more notable compared to last angiograms. Diagonal with proximal minor calcified irregularities. plaquing only. LAD large and wraps around apex. Other diagonals ok. LCx: large system. OM1 small. OM2 large with patent (2 layers) stents and looks OK other than mild restenosis proximal segment. Tiny OM3 has same moderate disease. Distal LCx transitions into large left PL which looks good. RCA: dominant system - medium size. Stented from proximal through mid segment - 2 layers in most of this stented segment until distal part of it (3 layers where last Dec 2023 stent is located) - here there is a 30-40% very focal restenosis segment. The area where we kept having to repeat stent (Dec 2023) in past is widely patent. Distal vessel and branches with mild plaquing only like usual - no change. LV pressure: 110/10 Aorta: 108/66 IFR mid RCA: 6 EBU 3.0. heparin to 250 ACT. Ominwire normalized in guide to 1.0. placed in distal RCA and 0.97, 0.96. 1.0 in aorta. Non-flow limiting. IFR proximal proximal LCx into OM2: 6 EBU 3.0. heparin to 250 ACT. Ominwire normalized in guide to 1.0. placed in distal OM2 and 0.97, 0.7. 1.0 in aorta. Non-flow limiting. IFR proximal LAD: 6 EBU 3.0. heparin to 250 ACT. Ominwire normalized in guide to 1.0. placed in mid LAD and 1.0, 1.0. 1.0 in aorta. Non-flow limiting. 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 32 patient triggered; 7 auto triggered PACs were not found during the monitoring period 24,496 PVCs with PVC burden of 1% pt events were sinus and sinus with occ PVCs. Electronically Signed On 11-10-2024 11:06:24 CDT by Steve De Jesus us Richard Dueñas MD CARDIAC SERVICES ORDERABLES Fin al Result Performing Organization Address City/State/[facility] Co de Phone Number INTERFACE SYSTEM Refer to clinic/hospital department * XR DEXA BONE DENSITY AXIAL 1 OR MORE SITES (06/27/2020) T-SCORE FEMUR [facility] T-SCORE FEMUR (LEFT) [facility] T-SCORE FEMUR (RIGHT) [facility] T-SCORE FEMUR NECK [facility] T-SCORE FEMORAL NECK (LEFT) [facility] T-SCORE FEMORAL NECK (RIGHT) [facility] T-SCORE HEEL [facility] [place] T-SCORE HEEL (LEFT) [facility] [place] T-SCORE HEEL (RIGHT) [facility] [place] T-SCORE HIP [facility] [place] T-SCORE HIP (LEFT) [facility] [place] T-SCORE HIP (RIGHT) [facility] T-SCORE WRIST [facility] T-SCORE WRIST (LEFT) [facility] T-SCORE WRIST (RIGHT) [facility] T-SCORE SPINE [facility] Anatomical Region Laterality Modality Other us Richard Casanova MD DIAGNOSTIC IMAGING ORD ERABLES Final Result * COLON CANCER SCREEN, STOOL DNA (10/17/2018 12:16 PM CDT) COLOGUARD RESULT Negative Not Applicable [facility] Comment: A negative result indicates a [...] Novak. et al, N Engl J Med 2014;370(14):2844-1401) COLOGUARD RE-SCREENING RECOMMENDATION: Periodic routine colorectal cancer screening is an important part of preventive healthcare for asymptomatic persons at average risk for colorectal cancer. Following a negative Cologuard result, the [place] Cancer Society and U.S. Multi-Society Task Force screening guidelines recommend a Cologuard re-screening interval of 3 years. References: [place] [employer] Society (ACS). Colorectal cancer prevention and early detection. [place], [place]: [place] [employer] Society; [updated 2015Jul 06]. https://www.cancer.org/cancer/iuvan-lvfmgo-bikqzz/rvgqvymjv-uaimcdqph-sbcqiyc/ac s-rec ommendations.html. Accessed November 12, 2017; Brayden DK, Amanda CR, Jacquie HenryK, Colorectal Cancer Screening: Recommendations for Physicians and Patients from the U.S. Multi-Society Task Force on Colorectal Cancer Screening, Am J Gastroenterology 2017; 112:3111-3143. Test Type: Composite algorithmic analysis of stool [...] can be accessed at the following location: www.Geosign/results. Additional description of the Cologuard test process, warnings and precautions can be found at www.cologuardtest.com. Rx Only. Stool STOOL SPECIMEN / Unknown 10/17/2018 12:16 PM CDT 10/18/2018 7:16 PM CDT Richard Casanova MD BODY FLUIDS AND STOOLS Final Result [facility] CLIA # [id number] [address] [facility], [address] [place] [address] from Last 3 Months or Most Recently Relevant to Health Maintenance Insurance RX AETNA Medicare Part D AETNA O [facility] Advance Directives For more information, please contact: [phone] Documents on File Type Date Recorded Patient Paraplanner Expl anation Advance Directive POA 08/31/2023 3:26 PM A dvance Directive POA Advance Directive Living Will 05/19/2022 5:44 AM Advance Directive Living Will * Full Code (Latest Code Status on File) Date Activated Date Inactivated Comments 12/27/2024 7:13 AM 12/27/2024 4:25 PM * Full Code Date Activated Date Inactivated Comments 02/23/2024 9:01 AM 02/23/2024 5:59 PM * Full Code Date Activated Date Inactivated Comments 09/10/2023 7:10 AM 09/10/2023 4:45 PM * Full Code Date Activated Date Inactivated Comments 05/19/2022 5:57 AM 05/20/2022 12:12 PM * Full Code Date Activated Date Inactivated Comments 11/13/2016 12:58 PM 11/14/2016 12:57 PM Care Teams Qa Developer Relationship Specialty Start Date End Date Vitaly Manzanares MD [address] [place] [address] PCP - General Family Practice 05/19/22
--- OUTSIDE RECORDS SUMMARY | 2025-01-25 09:02 | XMS_ITS | Encounter Summary ---
Author Organization [facility] Address [facility] [place] [address] Care Team Providers Care Level Vial Inside Grinder Name Role Phone Esteban Casanova MD Primary Care Provider Encounter Details Date Type Department Care Team (Late st Contact Info) Description 11/21/2019 Prep for Procedure [facility] One Day Services [address] [place] [address] Mike Madrigal MD [address] [facility] [address] [place] [address] Social History Tobacco Use Types Packs/Day Years Used Date Smoking Tobacco: Never Smokeless Tobacco: Never Alcohol Use Standard Drinks/Week Comments Not Currently 0 (1 standard drink = 0.6 oz pur e alcohol) Comments No Sex and Gender Information Value Date Recorded Sex Assigned at Not on file Legal Sex Female 1:00 PM 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 Due to the current public health emergency, [facility] is receiving a high volume of samples [...] about COVID-19 can be found at the [facility] website: www.[employer].Finsphere/Covid19. Test performed at [facility] [address] [address] [place] [address] Director: NESSA MCNALLY DO,MPH FIRST TEST UNKNOWN 11/24/2019 3:42 PM CDT [facility] EMPLOYED IN HEALTHCARE NO 11/24/2019 3:42 PM CDT [facility] SYMPTOMATIC DEFINED BY CDC NO 11/24/2019 3:42 PM CDT [facility] DATE OF SYMPTOM ONSET NON-APPLICABLE 11/24/2019 3:42 PM CDT [facility] HOSPITALIZATION STATUS NO 11/24/2019 3:42 PM CDT [facility] PATIENT IN ICU NO 11/24/2019 3:42 PM CDT [facility] RESIDENT OF CONGREGATE CARE NO 11/24/2019 3:42 PM CDT [facility] NO 11/24/2019 3:42 PM CDT [facility] PATIENT'S RACE UNKNOWN 11/24/2019 3:42 PM CDT [facility] ETHNICITY UNKNOWN 11/24/2019 3:42 PM CDT [facility] SOURCE (QST) NASOPHARYNGEAL SWAB 11/24/2019 11:54 AM CDT [facility] NASOPHARYNGEAL SWAB / Unknown 11/24/2019 11:57 AM CDT us Mike Madrigal MD MICROBIOLOGY - GENERAL ORDERAB LES Final Result Performing Organization Address City/State/[facility] Co de Phone Number [facility] [address] [place] [address], [place] [phone] [facility] [id number] [place] [address], documented in this encounter Visit Diagnoses Diagnosis Preop testing- Primary Preoperative examination, unspecified documented in this encounter Additional Health Concerns Infection Onset Date Last Indicated Resolved Time COVID-19 Rule Out 11/24/2019 11/24/2019 11/25/2019 4:01 PM CDT documented as of this encounter Care Teams Level Vial Inside Grinder Relationship Specialty [place] [address] [place] [address] PCP - General INTERNAL MEDICINE 05/16/19 documented as of this encounter
--- OUTSIDE RECORDS SUMMARY | 2025-01-25 09:02 | XMS_ITS | Encounter Summary ---
Author Organization [facility] Address [address] [place] [address] Care Team Providers Care Reporting Process Consultant Name Role Phone Vitaly Manzanares MD Primary Care Provider [phone] Encounter Details Date Type Department Care Team (Late st Contact Info) Description 01/28/2004 Outpatient Historical [facility] Internal Medicine [id number] [place] [address] Gadiel Christensen MD [address] [place] [id number] Social History Tobacco Use Types Packs/Day Years Used Date Smoking Tobacco: Never Assessed Comments Unknown Sex and Gender Information Value Date Recorded Sex Assigned at Not on file Legal Sex Female 5:01 AM PERFORMING ARTS TECHNICIANS Gender Identity Not on file Sexual Orientation Not on file documented as of this encounter Plan of Treatment Upcoming Encounters Date Type Department Care Team (Late Contact Info) Description 04/24/2025 10:30 AM PERFORMING ARTS TECHNICIANS Office Visit [facility] Heart and Vascular At [address] [place] [address] Esteban Dueñas MD [address] [place] [address] [address] [place] [address] documented as of this encounter Visit Diagnoses Not on filedocumented in this encounter Care Teams Reporting Process Consultant Relationship Specialty Start Date End Date Vitaly Manzanares MD [address] [place] [address] PCP - General Family Practice 05/19/22 documented as of this encounter
--- OUTSIDE RECORDS SUMMARY | 2025-01-25 09:02 | XMS_ITS | Encounter Summary ---
Author Organization [facility] Address [address] [place] [address] Care Team Providers Care Architectural Project Manager Name Role Phone Vitaly Manzanares MD Primary Care Provider [phone] Encounter Details Date Type Department Care Team (Late st Contact Info) Description 05/19/2004 Outpatient Historical [facility] Gadiel Christensen MD [address] [place] [id number] ABNORMAL FINDING-SKULL & HEAD (Primary Dx) Social History Tobacco Use Types Packs/Day Years Used Date Smoking Tobacco: Never Assessed Comments Unknown Sex and Gender Information Value Date Recorded Sex Assigned at Not on file Legal Sex Female 5:01 AM BARISTA Gender Identity Not on file Sexual Orientation Not on file documented as of this encounter Plan of Treatment Upcoming Encounters Date Type Department Care Team (Late Contact Info) Description 04/24/2025 10:30 AM BARISTA Office Visit [facility] Heart and Vascular At [address] [place] [address] Esteban Dueñas MD [address] [place] [address] [address] [place] [address] documented as of this encounter Visit Diagnoses Diagnosis Nonspecific (abnormal) findings on radiological and other examination of skull and head- Primary documented in this encounter Care Teams Architectural Project Manager Relationship Specialty Start Date End Date Vitaly Manzanares MD [address] [place] [address] PCP - General Family Practice 05/19/22 documented as of this encounter
--- OUTSIDE RECORDS SUMMARY | 2025-01-25 09:02 | XMS_ITS | Encounter Summary ---
Author Organization [facility] Address [address] [place] [address] Care Team Providers Care Office Service Coordinator Name Role Phone Vitaly Manzanares MD Primary Care Provider [phone] Encounter Details Date Type Department Care Team (Late st Contact Info) Description 02/23/2003 Outpatient Historical [facility] (Adt Cardiology-[facility]) [address] [place] [phone] Esteban Dueñas MD [address] [place] [address] [address] [place] [address] Social History Tobacco Use Types Packs/Day Years Used Date Smoking Tobacco: Never Assessed Comments Unknown Sex and Gender Information Value Date Recorded Sex Assigned at Not on file Legal Sex Female 5:01 AM RECRUITING INTERNSHIP Gender Identity Not on file Sexual Orientation Not on file documented as of this encounter Plan of Treatment Upcoming Encounters Date Type Department Care Team (Late Contact Info) Description 04/24/2025 10:30 AM RECRUITING INTERNSHIP Office Visit [facility] Heart and Vascular At [address] [place] [address] Esteban Dueñas MD [address] [place] [address] [place] [address] documented as of this encounter Visit Diagnoses Not on filedocumented in this encounter Care Teams Office Service Coordinator Relationship Specialty Start Date End Date Vitaly Manzanares MD [address] [place] [address] PCP - General Family Practice 05/19/22 documented as of this encounter
--- OUTSIDE RECORDS SUMMARY | 2025-01-25 09:02 | XMS_ITS | Encounter Summary ---
Author Organization [facility] Address [address] [place] [address] Care Team Providers Care Aircraft Restorer Name Role Phone Vitaly Manzanares MD Primary Care Provider [phone] Encounter Details Date Type Department Care Team (Late st Contact Info) Description 04/04/2004 Outpatient Historical [facility] Gadiel Christensen MD [address] [place] [phone] DISC DIS NEC/NOS-UNSPEC (Primary Dx) Social History Tobacco Use Types Packs/Day Years Used Date Smoking Tobacco: Never Assessed Comments Unknown Sex and Gender Information Value Date Recorded Sex Assigned at Not on file Legal Sex Female 5:01 AM NEUROBIOLOGIST Gender Identity Not on file Sexual Orientation Not on file documented as of this encounter Plan of Treatment Upcoming Encounters Date Type Department Care Team (Late st Contact Info) Description 04/24/2025 10:30 AM NEUROBIOLOGIST Office Visit [facility] Heart and Vascular At [address] [place] [address] Esteban Dueñas MD [address] [place] [address] [address] [place] [address] documented as of this encounter Visit Diagnoses Diagnosis Other and unspecified disc disorder of unspecified region- Primary documented in this encounter Care Teams Aircraft Restorer Relationship Specialty Start Date End Date Vitaly Manzanares MD [address] [place] [address] PCP - General Family Practice 05/19/22 documented as of this encounter
--- OUTSIDE RECORDS SUMMARY | 2025-01-25 09:02 | XMS_ITS | Encounter Summary ---
Author Organization [facility] Address [address] [place] [address] Care Team Providers Care Clam Treader Name Role Phone Vitaly Manzanares MD Primary Care Provider [phone] Encounter Details Date Type Department Care Team (Late st Contact Info) Description 05/06/2004 Outpatient Historical [facility] Gadiel Andrade MD [address] [place] [phone] ABNORMAL FINDING-SKULL & HEAD (Primary Dx) Social History Tobacco Use Types Packs/Day Years Used Date Smoking Tobacco: Never Assessed Comments Unknown Sex and Gender Information Value Date Recorded Sex Assigned at Not on file Legal Sex Female 5:01 AM LUMBER DRIVER Gender Identity Not on file Sexual Orientation Not on file documented as of this encounter Plan of Treatment Upcoming Encounters Date Type Department Care Team (Late Contact Info) Description 04/24/2025 10:30 AM LUMBER DRIVER Office Visit [facility] Heart and Vascular At [address] [place] [address] Esteban Dueñas MD [address] [place] [address] [address] [place] [address] documented as of this encounter Visit Diagnoses Diagnosis Nonspecific (abnormal) findings on radiological and other examination of skull and head- Primary documented in this encounter Care Teams Clam Treader Relationship Specialty Start Date End Date Vitaly Manzanares MD [address] [place] [address] PCP - General Family Practice 05/19/22 documented as of this encounter
[2025-01-25 09:33] LABS: Cholesterol 153 mg/dL (0-200); HDL Direct 102 mg/dL; Triglycerides 79 mg/dL (<150)
[2025-01-25 10:41] LABS: Vitamin B12 309.0 pg/mL (239-931)
== END 2025-01-25 08:49 | disposition home or self-care (01) ==
LOC: CHSLAB 08:49
PROVIDERS: PCP Family Medicine; Visit Provider Family Medicine
DX: E78.2 Mixed hyperlipidemia (principal); Z13.220 Encounter for screening for lipoid disorders; E53.8 Deficiency of other specified B group vitamins
CPT/HCPCS: 36415; 80061; 82607

== ENCOUNTER 2025-02-02 13:25 | Outpatient (CLI) | payer MEDICARE, SELFPAY ==
--- NOTE | ~2025-02-02 | XR_ITS ---
EXAMINATION: XR wrist RT min 3V DATE: 02/02/2025 13:43 INDICATION: Right wrist pain TECHNIQUE: Posteroanterior, ulnar deviation, oblique, and lateral views of the right wrist were obtained. COMPARISON: none FINDINGS: Diffuse osteopenia. Bone alignment is normal. No fracture. Chondrocalcinosis at the ulnar side of the wrist joint region of the triangular fibrocartilage complex. Mild polyarticular osteoarthritis at the distal radioulnar, triscaphe, first carpometacarpal, first metacarpophalangeal and a few of the visualized interphalangeal joints. IMPRESSION: 1. No acute osseous abnormality. 2. 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 Reviewed, dictated and finalized at location A. ENGINEER IMPRESSION: 1. No acute osseous abnormality. 2. 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
--- OUTSIDE RECORDS SUMMARY | 2025-02-02 11:00 | XMS_ITS | Encounter Summary ---
Author Organization [facility] Address [address] [place] [address] Phone Care Team Providers Care Cloth Cutting Machine Operator Name Role Phone Vitaly Manzanares MD Primary Care Provider Reason for Visit * Reason Comments Depression * Auth/Cert (Routine) Specialty Diagnoses / Procedures Referred By Contac t Referred To Contact Referral ID Status Reason Start Date Expiration Date Visits Re quested Visits Authorized [id number] Encounter Details Date Type Department Care Team (Latest Contact Info) Description 02/02/2025 11:00 AM TRAFFIC INVESTIGATOR Outpatient Clinic Visit [facility] Services [address] [place] [address] Marcell Joyner, [address] [place] [address] Adjustment disorder with depressed mood (Primary Dx) Discharge Disposition: Discharged to home or Selfcare Social History Tobacco Use Types Packs/Day Years Used Date Smoking Tobacco: Never Smokeless Tobacco: Never Alcohol Use Standard Drinks/Week Comments Yes 0 [...] on file documented as of this encounter Patient Instructions * Patient Instructions* Marcell Joyner LCSW - 02/02/2025 11:00 AM TRAFFIC INVESTIGATOR Crisis Resources In-Home, Mental Health Crisis Assessment [facility] Crisis Intervention Team?[phone] ([place]) [facility] Crisis Intervention Team?.. [phone] ([place]) [facility] Available for individual, family, or friend for in-home assessment of mental health issues Crisis Stabilization- Residential 24-hour or short-term supervised care at a facility. Available for persons 18 and older, who are experiencing a mental health crisis and do not need hospitalization. [facility] provides 24-hour short-term supervised care for persons aged 18 years and older experiencing an acute psychiatric crisis that does not require hospitalization. The average length of stay is 14 days. Admission to our crisis unit is voluntary; we only accept those individuals who choose to come to the unit. The facility is not prepared to work with persons who may be acutely suicidal or homicidal or who are experiencing serious medical problems or complications. The unit is staffed with nurses and behavioral health technicians and is not a hospital. During their stay on the unit, clients spend time in groups that meet four or more times a day. Thegroups provide education on topics helpful to individuals in crisis and clients are expected to attend and to participate actively. [facility] will provide a safe and supportive environment conducive to achieving stability. No alcohol or drugs are allowed in the unit. All medications are dispensed by [facility] nurses at appropriate times. No visitors are allowed on the unit but there is a phone available for clients to use and make calls. Persons may refer themselves for crisis residential/stabilization services and may be referred by hospitals, police departments, mental health agencies, social service agencies, and families. [facility] ?.....? .[phone] [facility] ?.???..[phone] Brief Crisis Phone Counseling Behavioral Health Response (BHR)?[phone] / [phone] ([place]) CARES Line (Medicaid patients) ?..[phone] If non-Medicaid patient, the caller will be referred to a local service provider Emergency Sites for Mental Health Assessment and Treatment Behavioral Health Urgent Care [facility] Behavioral Health Urgent Care (5yrs old to adult) [address] [place] [address] [address] [place] [address] Wednesday - Wednesday 9:00 am - 7:00 pm *Last patient seen at 6:00 pm Hospitals with Inpatient Psychological Services for Children and/or Adolescents and Adults [facility] (also has substance use treatment for adults) (adolescent, adult) [employer] [place] [address] [facility] (children, adolescents, adult) after business hours [phone] [place] [address]. [facility] Behavioral Health (children, adolescents, adult) [address] [place] [address] [facility] (also has substance use treatment for adults) (children, adolescents, adult) Phone: or [phone] [place] [address] [facility] (adolescent, adult) Phone: or [phone] [address] [place] [address] Hospitals with Inpatient Psychological Services for Adults only [facility] (adult, geriatric) [address] [place] [address] [facility] Behavioral Health (adult) [address] [place] [address] [facility] (adult) Phone: or [phone] [address] [place] [address] [facility] (geriatric only) Phone: or [phone] [address] [place] [address] [facility] (adult, geriatric) [address] [place], [place] Hotline Numbers [place] Suicide Prevention Hotline: ?..?.3-454-611-ZOFG (6880) or [address] [place] [address] Sexual Assault Hotline?..?.?8-276-230-[place] ([address] Sexual Assault Victims Support?..1-737.831.9979 [facility] Child Abuse Hotline?.1-185.953.9875 Domestic Violence Hotline?.?.1-419-551-S NHAN (4659) [facility] Lifeline?.? Trans Lifeline?.? LGBTQ Partner Abuse & Sexual Assault Line . .1- [phone] [facility] including support for opioids or other substances.? Crisis Text Line???..?.?.? Text [place] word help to [address]002 [facility] Text Line for service referrals.?.?. Text the word help to 146057 [facility]?2-919-653-79 53 [facility] Warmline? 9a-9p/7 days a week [facility] Warmline?..5-972-462-0845 FIC INVESTIGATOR documented in this encounter Progress Notes * Marcell Joyner LCSW - 02/02/2025 11:00 AM CST Images from the original note were not included. [facility] BEHAVIORAL HEALTH CLINICAL PROGRESS NOTE NAME: Aida Nguyen AGE: 74 y.o. DATE OF : 1950 DATE OF SERVICE: 02/02/2025 START TIME: 10:45 am END TIME: 11:30 am DIAGNOSIS: 1. Adjustment disorder with depressed mood TREATMENT PLAN: Goals Addressed This Visit's Progress Behavioral Health (pt-stated) On track I need help coping with all my physical health issues and caregiver stress along with physical limitations from my heart. Goal/Objective: Improve coping skills. Anticipated Time Frame for Goal Completion: 6 months Goal Reviewed with: patient Readiness to change: Ready to change Department associated with goal: [facility] Steps to achieve goal: will identify at least two ways their behavioral health impacts their physical health and vice versa. will identify at least two ways/skills/habits to reduce exacerbation of co- occurring disorders. will implement at least one new way/skill/habit to reduce exacerbation of co- occurring disorders Will attend individual and/or group session at least 1x/month at least 6 sessions PROBLEM STATUS: Aida was seen today due to the following concerns: Depression: concentration difficulties decreased motivation decreased participation in activities of daily living fatigue/loss of energy feeling of helplessness feeling of hopelessness withdrawn/isolating Medical/daily routine: adjustment chronic pain Aida talked about ongoing grieving with over mother's and first round of holidays coming up. She had her cardiac cath and follows up with her head batcher in April, but her energy level has not improved. She is looking into a cardiac rehab program. Based upon the presenting problem the following treatment modalities were utilized: Cognitive Behavioral Therapy Supportive/Client Centered Therapy FUNCTIONAL ASSESSMENT: Can the patient perform Activities of Daily Living (ADL'S)?: Patient is able to complete ADL's independently Does patient have the ability and the capacity to respond to treatment?: Yes THERAPEUTIC INTERVENTIONS USED: This clinician provided therapeutic interventions for: Depression: increasing insight into current difficulties identifying and decreasing cognitive distortions/negative automatic thoughts contributing negatively to depressed mood and behavior identifying, verbalizing, and processing feelings effectively increasing daily socialization and engagement in pleasant/pleasurable activities Medical: improving coping surrounding acute/chronic medical condition education/processing lifestyle change due to medical condition education on relationship between behavioral health condition and medical condition . Aida verbalized an understanding and responded well to interventions provided during treatment session. PROGRESS TOWARDS GOALS: Aida reported slight improvement of symptoms. MENTAL STATUS EXAM: Aida is: motivated open pleasant. Affect is: appropriate to context. Mood is: congruent to situation. There is: no history of suicidal ideation.. There is: no history of homicidal ideation.. TREATMENT RECOMMENDATIONS/FOLLOW UP: Recommendations for follow up treatment plan: Return for next available follow up appointment. MARCELL JOYNER LCSW FIC INVESTIGATOR documented in this encounter Plan of Treatment Upcoming Encounters Date Type Department Care Team (Late st Contact Info) Description 02/23/2025 10:30 AM TRAFFIC INVESTIGATOR Outpatient Clinic Visit [facility] Services [address] [place] [address] Marcell Joyner LCSW [address] [place] [address] documented as of this encounter Goals Goal Patient Goal Type Associated Problems Recent Progress Patient-Stated? Author Behavioral Health Behavioral Health On track(2024 10:50 AM TRAFFIC INVESTIGATOR) Yes Marcell Joyner LCSW Note: I need help coping with all my physical health issues and caregiver stress along with physical limitations from my heart. Goal/Objective: Improve coping skills. Anticipated Time Frame for Goal Completion: 6 months Goal Reviewed with: patient Readiness to change: Ready to change Department associated with goal: [facility] Steps to [...] at least 1x/month at least 6 sessions documented as of this encounter Visit Diagnoses Diagnosis Adjustment disorder with depressed mood- Primary documented in this encounter Additional Health Concerns Assessment Noted Time PHQ-9 Depression Total Score: 9 05/16/19 25 10:00 AM TRAFFIC INVESTIGATOR documented as of this encounter Care Teams Cloth Cutting Machine Operator Relationship Specialty Start Date End Date Vitaly Manzanares MD [address] [place] [address] PCP - General Family Medicine 04/21/24 documented as of this encounter
--- OUTSIDE RECORDS SUMMARY | 2025-02-02 13:27 | XMS_ITS | Encounter Summary ---
Author Organization [facility] Address [address] [place] [address] Care Team Providers Care Restaurant Delivery Driver Name Role Phone Vitaly Manzanares MD Primary Care Provider [phone] Encounter Details Date Type Department Care Team (Late Contact Info) Description 05/15/2002 Outpatient Historical [facility] ([facility]3] Internal Medicine [place] [address] [place] [address] Gadiel Christensen MD [address] [place] [phone] Social History Tobacco Use Types Packs/Day Years Used Date Smoking Tobacco: Never Assessed Comments Unknown Sex and Gender Information Value Date Recorded Sex Assigned at Not on file Legal Sex Female 5:01 AM WEB DESIGN INSTRUCTOR Gender Identity Not on file Sexual Orientation Not on file documented as of this encounter Plan of Treatment Upcoming Encounters Date Type Department Care Team (Late Contact Info) Description 04/24/2025 10:30 AM WEB DESIGN INSTRUCTOR Office Visit [facility] ([facility]3] Heart and Vascular At [address] [place] [address] Esteban Dueñas MD [address] [place] [address] [place] [address] documented as of this encounter Visit Diagnoses Not on filedocumented in this encounter Care Teams Restaurant Delivery Driver Relationship Specialty Start Date End Date Vitaly Manzanares MD [address] [place] [address] PCP - General Family Practice 05/19/22 documented as of this encounter
--- OUTSIDE RECORDS SUMMARY | 2025-02-02 13:27 | XMS_ITS | Encounter Summary ---
Author Organization [facility] Address [address] [place] [address] Care Team Providers Care Transfer Coordinator Name Role Phone Vitaly Manzanares MD Primary Care Provider Encounter Details Date Type Department Care Team (Late Contact Info) Description 06/09/2002 Outpatient Historical [facility] Internal Medicine [place] [address] [place] [address] Gadiel Christensen MD [address] [place] [phone] Social History Tobacco Use Types Packs/Day Years Used Date Smoking Tobacco: Never Assessed Comments Unknown Sex and Gender Information Value Date Recorded Sex Assigned at Not on file Legal Sex Female 5:01 AM INSURANCE CLAIMS REPRESENTATIVE Gender Identity Not on file Sexual Orientation Not on file documented as of this encounter Plan of Treatment Upcoming Encounters Date Type Department Care Team (Late Contact Info) Description 04/24/2025 10:30 AM INSURANCE CLAIMS REPRESENTATIVE Office Visit [facility] Heart and Vascular At [address] [place] [address] Esteban Dueñas MD [address] [place] [address] [place] [address] documented as of this encounter Visit Diagnoses Not on filedocumented in this encounter Care Teams Transfer Coordinator Relationship Specialty Start Date End Date Vitaly Manzanares MD [address] [place] [address] PCP - General Family Practice 05/19/22 documented as of this encounter
--- OUTSIDE RECORDS SUMMARY | 2025-02-02 13:27 | XMS_ITS | Encounter Summary ---
Author Organization [facility] Address [address] [place] [address] Care Team Providers Care Instrument Repair Technician Name Role Phone Vitaly Manzanares MD Primary Care Provider Encounter Details Date Type Department Care Team (Late Contact Info) Description 05/10/2002 Outpatient Historical [facility] ([facility] Internal Medicine [place] [address] [place] [address] Gadiel Christensen MD [address] [place] [phone] Social History Tobacco Use Types Packs/Day Years Used Date Smoking Tobacco: Never Assessed Comments Unknown Sex and Gender Information Value Date Recorded Sex Assigned at Not on file Legal Sex Female 5:01 AM SUPERVISOR LIME Gender Identity Not on file Sexual Orientation Not on file documented as of this encounter Plan of Treatment Upcoming Encounters Date Type Department Care Team (Late Contact Info) Description 04/24/2025 10:30 AM SUPERVISOR LIME Office Visit [facility] ([facility] Heart and Vascular At [address] [place] [address] Esteban Dueñas MD [address] [place] [address] [address] [place] [address] documented as of this encounter Visit Diagnoses Not on filedocumented in this encounter Care Teams Instrument Repair Technician Relationship Specialty Start Date End Date Vitaly Manzanares MD [address] [place] [address] PCP - General Family Practice 05/19/22 documented as of this encounter
--- OUTSIDE RECORDS SUMMARY | 2025-02-02 13:27 | XMS_ITS | Encounter Summary ---
Author Organization [facility] Address [address] [place] [address] Care Team Providers Care Hog Pusher Name Role Phone Vitaly Manzanares MD Primary Care Provider Encounter Details Date Type Department Care Team (Late Contact Info) Description 05/05/2002 Outpatient Historical HIS [facility] Gadiel Andrade MD [address] [place] [phone] SCREENING MAMM-MAILG NEOPL-OTHER (Primary Dx) Social History Tobacco Use Types Packs/Day Years Used Date Smoking Tobacco: Never Assessed Comments Unknown Sex and Gender Information Value Date Recorded Sex Assigned at Not on file Legal Sex Female 5:01 AM AUTOGRAPHER Gender Identity Not on file Sexual Orientation Not on file documented as of this encounter Plan of Treatment Upcoming Encounters Date Type Department Care Team (Late Contact Info) Description 04/24/2025 10:30 AM AUTOGRAPHER Office Visit [facility] Heart and Vascular At [facility] [address] [facility] [address] [place] [address] Esteban Dueñas MD [address] [place] [address] [address] [place] [address] documented as of this encounter Visit Diagnoses Diagnosis Other screening mammogram- Primary documented in this encounter Care Teams Hog Pusher Relationship Specialty Start Date End Date Vitaly Manzanares MD [address] [place] [address] PCP - General Family Practice 05/19/22 documented as of this encounter
--- OUTSIDE RECORDS SUMMARY | 2025-02-02 13:27 | XMS_ITS | Encounter Summary ---
Author Organization [facility] Address [address] [place] [address] Care Team Providers Care Director Trial Name Role Phone Vitaly Manzanares MD Primary Care Provider [phone] Encounter Details Date Type Department Care Team (Late Contact Info) Description 10/19/2002 Outpatient Historical [facility] Internal Medicine [address] [place] [address] Gadiel Christensen MD [address] [place] [phone] Social History Tobacco Use Types Packs/Day Years Used Date Smoking Tobacco: Never Assessed Comments Unknown Sex and Gender Information Value Date Recorded Sex Assigned at Not on file Legal Sex Female 5:01 AM ASSOCIATE PROFESSOR OF ART Gender Identity Not on file Sexual Orientation Not on file documented as of this encounter Plan of Treatment Upcoming Encounters Date Type Department Care Team (Late Contact Info) Description 04/24/2025 10:30 AM ASSOCIATE PROFESSOR OF ART Office Visit [facility] Heart and Vascular At [address] [place] [address] Esteban Dueñas MD [address] [place] [address] [place] [address] documented as of this encounter Visit Diagnoses Not on filedocumented in this encounter Care Teams Director Trial Relationship Specialty Start Date End Date Vitaly Manzanares MD [address] [place] [address] PCP - General Family Practice 05/19/22 documented as of this encounter
--- OUTSIDE RECORDS SUMMARY | 2025-02-02 13:28 | XMS_ITS | Encounter Summary ---
Author Organization [facility] Address [address] [place] [address] Care Team Providers Care Control Panel Tester Name Role Phone Vitaly Manzanares MD Primary Care Provider Encounter Details Date Type Department Care Team (Late Contact Info) Description 02/07/2002 Outpatient Historical [facility] Internal Medicine [place] [address] [place] [address] Gadiel Christensen MD [address] [place] [phone] Social History Tobacco Use Types Packs/Day Years Used Date Smoking Tobacco: Never Assessed Comments Unknown Sex and Gender Information Value Date Recorded Sex Assigned at Not on file Legal Sex Female 5:01 AM REAL ESTATE SPECIALIST Gender Identity Not on file Sexual Orientation Not on file documented as of this encounter Plan of Treatment Upcoming Encounters Date Type Department Care Team (Late Contact Info) Description 04/24/2025 10:30 AM REAL ESTATE SPECIALIST Office Visit [facility] Heart and Vascular At [address] [place] [address] Esteban Dueñas MD [address] [place] [address] [address] [place] [address] documented as of this encounter Visit Diagnoses Not on filedocumented in this encounter Care Teams Control Panel Tester Relationship Specialty Start Date End Date Vitaly Manzanares MD [address] [place] [address] PCP - General Family Practice 05/19/22 documented as of this encounter
--- OUTSIDE RECORDS SUMMARY | 2025-02-02 13:28 | XMS_ITS | Encounter Summary ---
Author Organization [facility] Address [address] [place] [address] Care Team Providers Care Plan Checker Name Role Phone Vitaly Manzanares MD Primary Care Provider [phone] Encounter Details Date Type Department Care Team (Latest Contact Info) Description 02/23/2003 Outpatient Historical [facility] ChristensenGadiel MD [address] [place] [phone] CHEST PAIN NOS (Primary Dx) Social History Tobacco Use Types Packs/Day Years Used Date Smoking Tobacco: Never Assessed Comments Unknown Sex and Gender Information Value Date Recorded Sex Assigned at Not on file Legal Sex Female 5:01 AM MEAT SPECIALIST Gender Identity Not on file Sexual Orientation Not on file documented as of this encounter Plan of Treatment Upcoming Encounters Date Type Department Care Team (Late st Contact Info) Description 04/24/2025 10:30 AM MEAT SPECIALIST Office Visit [facility] Heart and Vascular At [address] [place] [address] Esteban Dueñas MD [address] [place] [address] [address] [place] [address] documented as of this encounter Visit Diagnoses Diagnosis Chest pain, unspecified- Primary documented in this encounter Care Teams Plan Checker Relationship Specialty Start Date End Date Vitaly Manzanares MD [address] [place] [address] PCP - General Family Practice 05/19/22 documented as of this encounter
--- OUTSIDE RECORDS SUMMARY | 2025-02-02 13:28 | XMS_ITS | Encounter Summary ---
Author Organization [facility] Care Team Providers Care Hat Renovator Name Role Phone Vitaly Manzanares MD Primary Care Provider [phone] Encounter Details Date Type Department Care Team (Latest Contact Info) Description 02/02/2025 Travel Social History Tobacco Use Types Packs/Day Years [...] st Contact Info) Description 02/23/2025 10:30 AM DIRECTOR NICU Outpatient Clinic Visit [facility] [address] [place] [address] Marcell Joyner, [address] [place] [address] documented as of this encounter Goals Goal Patient Goal Type Associated Problems Recent Progress Patient-Stated? Author Behavioral Health Behavioral Health On track(2024 10:50 AM DIRECTOR NICU) Yes Marcell Joyner, [place] Note: I need help coping with all my physical health issues and caregiver stress along with physical limitations from my heart. Goal/Objective: Improve coping skills. Anticipated Time Frame for Goal Completion: 6 months Goal Reviewed with: patient Readiness to change: Ready to change Department associated with goal: [facility] Steps to [...] Diagnoses Not on filedocumented in this encounter Additional Health Concerns Assessment Noted Time PHQ-9 Depression Total Score: 9 05/16/19 25 10:00 AM DIRECTOR NICU documented as of this encounter Care Teams Hat Renovator Relationship Specialty Start Date End Date Vitaly Manzanares MD [address] [place] [address] PCP - General Family Medicine 04/21/24 documented as of this encounter
--- OUTSIDE RECORDS SUMMARY | 2025-02-02 13:28 | XMS_ITS | Encounter Summary ---
Author Organization [facility] Address [address] [place] [address] Care Team Providers Care Centerless Grinder Set Up Operator Name Role Phone Vitaly Manzanares MD Primary Care Provider [phone] Encounter Details Date Type Department Care Team (Latest Contact Info) Description 05/06/2004 Outpatient Historical [facility] Gadiel Christensen MD [address] [place] [phone] DISC DISPLACEMENT NOS (Primary Dx) Social History Tobacco Use Types Packs/Day Years Used Date Smoking Tobacco: Never Assessed Comments Unknown Sex and Gender Information Value Date Recorded Sex Assigned at Not on file Legal Sex Female 5:01 AM BIOFUELS PRODUCT MANAGER Gender Identity Not on file Sexual Orientation Not on file documented as of this encounter Plan of Treatment Upcoming Encounters Date Type Department Care Team (Late st Contact Info) Description 04/24/2025 10:30 AM BIOFUELS PRODUCT MANAGER Office Visit [facility] Heart and Vascular At [address] [place] [address] Esteban Dueñas MD [address] [place] [address] [address] [place] [address] documented as of this encounter Visit Diagnoses Diagnosis Displacement of intervertebral disc, site unspecified, without myelopathy- Primary documented in this encounter Care Teams Centerless Grinder Set Up Operator Relationship Specialty Start Date End Date Vitaly Manzanares MD [address] [place] [address] PCP - General Family Practice 05/19/22 documented as of this encounter
--- OUTSIDE RECORDS SUMMARY | 2025-02-02 13:28 | XMS_ITS | Encounter Summary ---
Author Organization [facility] Address [address] [place] [address] Care Team Providers Care Staff Registered Nurse Name Role Phone Vitaly Manzanares MD Primary Care Provider Encounter Details Date Type Department Care Team (Late st Contact Info) Description 07/09/2004 Outpatient Historical [facility] Gadiel Christensen MD [address] [place] [phone] Social History Tobacco Use Types Packs/Day Years Used Date Smoking Tobacco: Never Assessed Comments Unknown Sex and Gender Information Value Date Recorded Sex Assigned at Not on file Legal Sex Female 5:01 AM VEHICLE CARE SPECIALIST Gender Identity Not on file Sexual Orientation Not on file documented as of this encounter Plan of Treatment Upcoming Encounters Date Type Department Care Team (Late st Contact Info) Description 04/24/2025 10:30 AM VEHICLE CARE SPECIALIST Office Visit [facility] Heart and Vascular At [address] [place] [address] Esteban Dueñas MD [address] [place] [address] [address] [place] [address] documented as of this encounter Visit Diagnoses Not on filedocumented in this encounter Care Teams Staff Registered Nurse Relationship Specialty Start Date End Date Vitaly Manzanares MD [address] [place] [address] PCP - General Family Practice 05/19/22 documented as of this encounter
--- OUTSIDE RECORDS SUMMARY | 2025-02-02 13:28 | XMS_ITS | Encounter Summary ---
Author Organization [facility] Address [address] [place] [address] Care Team Providers Care R Programmer Name Role Phone Vitaly Manzanares MD Primary Care Provider Encounter Details Date Type Department Care Team (Late Contact Info) Description 11/07/2001 Outpatient Historical [facility] Internal Medicine [address] [place] [address] Gadiel Christensen MD [address] [place] [phone] Social History Tobacco Use Types Packs/Day Years Used Date Smoking Tobacco: Never Assessed Comments Unknown Sex and Gender Information Value Date Recorded Sex Assigned at Not on file Legal Sex Female 5:01 AM CUSTOMER SUPPORT SPECIALIST Gender Identity Not on file Sexual Orientation Not on file documented as of this encounter Plan of Treatment Upcoming Encounters Date Type Department Care Team (Late Contact Info) Description 04/24/2025 10:30 AM CUSTOMER SUPPORT SPECIALIST Office Visit [facility] Heart and Vascular At [address] [place] [address] Esteban Dueñas MD [address] [place] [address] [address] [place] [address] documented as of this encounter Visit Diagnoses Not on filedocumented in this encounter Care Teams R Programmer Relationship Specialty Start Date End Date Vitaly Manzanares MD [address] [place] [address] PCP - General Family Practice 05/19/22 documented as of this encounter
--- OUTSIDE RECORDS SUMMARY | 2025-02-02 13:28 | XMS_ITS | Encounter Summary ---
Author Organization [facility] Address [address] [place] [address] Care Team Providers Care Dyed Yarn Operator Name Role Phone Vitaly Manzanares MD Primary Care Provider Encounter Details Date Type Department Care Team (Late Contact Info) Description 08/29/2003 Outpatient Historical [facility] Internal Medicine [place] [address] [place] [address] Gadiel Christensen MD [address] [place] [phone] Social History Tobacco Use Types Packs/Day Years Used Date Smoking Tobacco: Never Assessed Comments Unknown Sex and Gender Information Value Date Recorded Sex Assigned at Not on file Legal Sex Female 5:01 AM ANIMAL SHELTER WORKER Gender Identity Not on file Sexual Orientation Not on file documented as of this encounter Plan of Treatment Upcoming Encounters Date Type Department Care Team (Late Contact Info) Description 04/24/2025 10:30 AM ANIMAL SHELTER WORKER Office Visit [facility] Heart and Vascular At [address] [place] [address] Esteban Dueñas MD [address] [place] [address] [place] [address] documented as of this encounter Visit Diagnoses Not on filedocumented in this encounter Care Teams Dyed Yarn Operator Relationship Specialty Start Date End Date Vitaly Manzanares MD [address] [place] [address] PCP - General Family Practice 05/19/22 documented as of this encounter
--- OUTSIDE RECORDS SUMMARY | 2025-02-02 13:28 | XMS_ITS | Encounter Summary ---
Author Organization [facility] Address [address] [place] [address] Care Team Providers Care Office Support Clerk Name Role Phone Vitaly Manzanares MD Primary Care Provider Encounter Details Date Type Department Care Team (Late Contact Info) Description 01/26/2006 Outpatient Historical [facility] Internal Medicine [place] [address] [place] [address] Gadiel Christensen MD [address] [place] [phone] Social History Tobacco Use Types Packs/Day Years Used Date Smoking Tobacco: Never Assessed Comments Unknown Sex and Gender Information Value Date Recorded Sex Assigned at Not on file Legal Sex Female 5:01 AM VORTEX OPERATOR Gender Identity Not on file Sexual Orientation Not on file documented as of this encounter Plan of Treatment Upcoming Encounters Date Type Department Care Team (Late Contact Info) Description 04/24/2025 10:30 AM VORTEX OPERATOR Office Visit [facility] Heart and Vascular At [address] [place] [address] Esteban Dueñas MD [address] [place] [address] [address] [place] [address] documented as of this encounter Visit Diagnoses Not on filedocumented in this encounter Care Teams Office Support Clerk Relationship Specialty Start Date End Date Vitaly Manzanares MD [address] [place] [address] PCP - General Family Practice 05/19/22 documented as of this encounter
--- OUTSIDE RECORDS SUMMARY | 2025-02-02 13:28 | XMS_ITS | Encounter Summary ---
Author Organization [facility] Address [address] [place] [address] Care Team Providers Care Senior Data Architect Name Role Phone Vitaly Manzanares MD Primary Care Provider [phone] Encounter Details Date Type Department Care Team (Late Contact Info) Description 05/06/2004 Outpatient Historical [facility] Gadiel Andrade MD [address] [place] [phone] ABNORMAL FINDING-SKULL & HEAD (Primary Dx) Social History Tobacco Use Types Packs/Day Years Used Date Smoking Tobacco: Never Assessed Comments Unknown Sex and Gender Information Value Date Recorded Sex Assigned at Not on file Legal Sex Female 5:01 AM CRITICAL CARE CLINICAL NURSE SPECIALIST Gender Identity Not on file Sexual Orientation Not on file documented as of this encounter Plan of Treatment Upcoming Encounters Date Type Department Care Team (Late Contact Info) Description 04/24/2025 10:30 AM CRITICAL CARE CLINICAL NURSE SPECIALIST Office Visit [facility] Heart and Vascular At [place] [address] [facility] [address] [place] [address] Esteban Dueñas MD [facility] [address] [facility] [address] [place] [address] documented as of this encounter Visit Diagnoses Diagnosis Nonspecific (abnormal) findings on radiological and other examination of skull and head- Primary documented in this encounter Care Teams Senior Data Architect Relationship Specialty Start Date End Date Vitaly Manzanares MD [address] [place] [address] PCP - General Family Practice 05/19/22 documented as of this encounter
--- OUTSIDE RECORDS SUMMARY | 2025-02-02 13:28 | XMS_ITS | Encounter Summary ---
Author Organization [facility] Address [address] [place] [address] Care Team Providers Care Squeak Rattle And Leak Repairer Name Role Phone Vitaly Manzanares MD Primary Care Provider [phone] Encounter Details Date Type Department Care Team (Latest Contact Info) Description 06/07/2004 Outpatient Historical [facility] Gadiel Christensen MD [address] [place] [phone] DISC DEGENERATION NOS (Primary Dx) Social History Tobacco Use Types Packs/Day Years Used Date Smoking Tobacco: Never Assessed Comments Unknown Sex and Gender Information Value Date Recorded Sex Assigned at Not on file Legal Sex Female 5:01 AM PROFESSOR OF PHILOSOPHY Gender Identity Not on file Sexual Orientation Not on file documented as of this encounter Plan of Treatment Upcoming Encounters Date Type Department Care Team (Late st Contact Info) Description 04/24/2025 10:30 AM PROFESSOR OF PHILOSOPHY Office Visit [facility] Heart and Vascular At [address] [place] [address] Esteban Dueñas MD [facility] [address] [facility] [address] [place] [address] documented as of this encounter Visit Diagnoses Diagnosis Degeneration of intervertebral disc, site unspecified- Primary documented in this encounter Care Teams Squeak Rattle And Leak Repairer Relationship Specialty Start Date End Date Vitaly Manzanares MD [address] [place] [address] PCP - General Family Practice 05/19/22 documented as of this encounter
--- OUTSIDE RECORDS SUMMARY | 2025-02-02 13:28 | XMS_ITS | Encounter Summary ---
Author Organization [facility] Address [address] [place] [address] Care Team Providers Care Mixer Driver Name Role Phone Vitaly Manzanares MD Primary Care Provider [phone] Encounter Details Date Type Department Care Team (Late Contact Info) Description 06/22/2005 Outpatient Historical [facility] Internal Medicine [place] [address] [place] [address] Gadiel Christensen MD [address] [place] [phone] Social History Tobacco Use Types Packs/Day Years Used Date Smoking Tobacco: Never Assessed Comments Unknown Sex and Gender Information Value Date Recorded Sex Assigned at Not on file Legal Sex Female 5:01 AM CHIEF DEPUTY Gender Identity Not on file Sexual Orientation Not on file documented as of this encounter Plan of Treatment Upcoming Encounters Date Type Department Care Team (Late Contact Info) Description 04/24/2025 10:30 AM CHIEF DEPUTY Office Visit [facility] Heart and Vascular At [address] [place] [address] Esteban Dueñas MD [address] [place] [address] [address] [place] [address] documented as of this encounter Visit Diagnoses Not on filedocumented in this encounter Care Teams Mixer Driver Relationship Specialty Start Date End Date Vitaly Manzanares MD [address] [place] [address] PCP - General Family Practice 05/19/22 documented as of this encounter
--- OUTSIDE RECORDS SUMMARY | 2025-02-02 13:28 | XMS_ITS | Encounter Summary ---
Author Organization [facility] Address [address] [place] [address] Care Team Providers Care Demurrage Man Name Role Phone Vitaly Manzanares MD Primary Care Provider Encounter Details Date Type Department Care Team (Late st Contact Info) Description 12/21/2004 Outpatient Historical [facility] Gadiel Christensen MD [address] [place] [phone] Social History Tobacco Use Types Packs/Day Years Used Date Smoking Tobacco: Never Assessed Comments Unknown Sex and Gender Information Value Date Recorded Sex Assigned at Not on file Legal Sex Female 5:01 AM IN CLASS SPECIAL EDUCATION TEACHER Gender Identity Not on file Sexual Orientation Not on file documented as of this encounter Plan of Treatment Upcoming Encounters Date Type Department Care Team (Late st Contact Info) Description 04/24/2025 10:30 AM IN CLASS SPECIAL EDUCATION TEACHER Office Visit [facility] Heart and Vascular At [address] [place] [address] Esteban Dueñas MD [address] [place] [address] [address] [place] [address] documented as of this encounter Visit Diagnoses Not on filedocumented in this encounter Care Teams Demurrage Man Relationship Specialty Start Date End Date Vitaly Manzanares MD [address] [place] [address] PCP - General Family Practice 05/19/22 documented as of this encounter
--- OUTSIDE RECORDS SUMMARY | 2025-02-02 13:28 | XMS_ITS | Encounter Summary ---
Author Organization [facility] Address [address] [place] [address] Care Team Providers Care Weigher Operator Name Role Phone Vitaly Manzanares MD Primary Care Provider [phone] Encounter Details Date Type Department Care Team (Late Contact Info) Description 04/19/2001 Outpatient Historical [facility] Internal Medicine [address] [place] [address] Gadiel Christensen MD [address] [place] [phone] Social History Tobacco Use Types Packs/Day Years Used Date Smoking Tobacco: Never Assessed Comments Unknown Sex and Gender Information Value Date Recorded Sex Assigned at Not on file Legal Sex Female 5:01 AM RECOATING MACHINE OPERATOR Gender Identity Not on file Sexual Orientation Not on file documented as of this encounter Plan of Treatment Upcoming Encounters Date Type Department Care Team (Late Contact Info) Description 04/24/2025 10:30 AM RECOATING MACHINE OPERATOR Office Visit [facility] Heart and Vascular At [address] [place] [address] Esteban Dueñas MD [address] [place] [address] [place] [address] documented as of this encounter Visit Diagnoses Not on filedocumented in this encounter Care Teams Weigher Operator Relationship Specialty Start Date End Date Vitaly Manzanares MD [address] [place] [address] PCP - General Family Practice 05/19/22 documented as of this encounter
--- OUTSIDE RECORDS SUMMARY | 2025-02-02 13:28 | XMS_ITS | Encounter Summary ---
Author Organization [facility] Address [address] [place] [address] Care Team Providers Care Correctional Officer Lieutenant Name Role Phone Vitaly Manzanares MD Primary Care Provider Encounter Details Date Type Department Care Team (Late st Contact Info) Description 11/19/2004 Outpatient Historical [facility] Gadiel Christensen MD [address] [place] [phone] CERVICALGIA (Primary Dx) Social History Tobacco Use Types Packs/Day Years Used Date Smoking Tobacco: Never Assessed Comments Unknown Sex and Gender Information Value Date Recorded Sex Assigned at Not on file Legal Sex Female 5:01 AM STRUCTURAL STEEL EQUIPMENT ERECTOR Gender Identity Not on file Sexual Orientation Not on file documented as of this encounter Plan of Treatment Upcoming Encounters Date Type Department Care Team (Late Contact Info) Description 04/24/2025 10:30 AM STRUCTURAL STEEL EQUIPMENT ERECTOR Office Visit [facility] Heart and Vascular At [address] [place] [address] Esteban Dueñas MD [address] [place] [address] [address] [place] [address] documented as of this encounter Visit Diagnoses Diagnosis Cervicalgia- Primary documented in this encounter Care Teams Correctional Officer Lieutenant Relationship Specialty Start Date End Date Vitaly Manzanares MD [address] [place] [address] PCP - General Family Practice 05/19/22 documented as of this encounter
--- OUTSIDE RECORDS SUMMARY | 2025-02-02 13:28 | XMS_ITS | Encounter Summary ---
Author Organization [facility] Address [address] [place] [address] Care Team Providers Care Roll Forming Machine Operator Name Role Phone Vitaly Manzanares MD Primary Care Provider Encounter Details Date Type Department Care Team (Latest Contact Info) Description 10/02/2005 Outpatient Historical [facility] Gadiel Christensen MD [address] [place] [phone] Hypopotassemia (Primary Dx) Social History Tobacco Use Types Packs/Day Years Used Date Smoking Tobacco: Never Assessed Comments Unknown Sex and Gender Information Value Date Recorded Sex Assigned at Not on file Legal Sex Female 5:01 AM ASSISTANT AT SURGERY Gender Identity Not on file Sexual Orientation Not on file documented as of this encounter Plan of Treatment Upcoming Encounters Date Type Department Care Team (Late st Contact Info) Description 04/24/2025 10:30 AM ASSISTANT AT SURGERY Office Visit [facility] Heart and Vascular At [address] [place] [address] Esteban Dueñas MD [address] [place] [address] [address] [place] [address] documented as of this encounter [...] INTERFACE SYSTEM Comment: Lab test performed by: [facility] [facility] [address] [place] [address] DEMAR BUCK MD 10/02/2005 3:26 PM CDT Gadiel Christensen MD CHEMISTRY ORDERABLES COM Final Result Performing Organization Address City/[facility] Co de Phone Number INTERFACE SYSTEM Refer to clinic/hospital department * MAGNESIUM LEVEL (10/02/2005 3:26 PM CDT) MAGNESIUM 1.7 1.5 - 2.5 mg/dL INTERFACE SYSTEM 10/02/2005 3:26 PM CDT Gadiel Christensen MD CHEMISTRY ORDERABLES Final Res ult Performing Organization Address City/[facility] Co de Phone [...] ORDERABLES Final Res ult Performing Organization Address City/[facility] Co de Phone Number INTERFACE SYSTEM Refer to clinic/hospital department documented in this encounter Visit Diagnoses Diagnosis Hypopotassemia- Primary documented in this encounter Care Teams Roll Forming Machine Operator Relationship Specialty Start Date End Date Vitaly Manzanares MD [address] [place] [address] PCP - General Family Practice 05/19/22 documented as of this encounter
--- OUTSIDE RECORDS SUMMARY | 2025-02-02 13:28 | XMS_ITS | Encounter Summary ---
Author Organization [facility] Address [address] [place] [address] Care Team Providers Care Offensive Coordinator Name Role Phone Vitaly Manzanares MD Primary Care Provider [phone] Encounter Details Date Type Department Care Team (Late Contact Info) Description 05/05/2004 Outpatient Historical [facility] Internal Medicine [address] [place] [address] Gadiel Christensen MD [address] [place] [phone] Social History Tobacco Use Types Packs/Day Years Used Date Smoking Tobacco: Never Assessed Comments Unknown Sex and Gender Information Value Date Recorded Sex Assigned at Not on file Legal Sex Female 5:01 AM AUTO SERVICER Gender Identity Not on file Sexual Orientation Not on file documented as of this encounter Plan of Treatment Upcoming Encounters Date Type Department Care Team (Late Contact Info) Description 04/24/2025 10:30 AM AUTO SERVICER Office Visit [facility] Heart and Vascular At [address] [place] [address] Esteban Dueñas MD [address] [place] [address] [address] [place] [address] documented as of this encounter Visit Diagnoses Not on filedocumented in this encounter Care Teams Offensive Coordinator Relationship Specialty Start Date End Date Vitaly Manzanares MD [address] [place] [address] PCP - General Family Practice 05/19/22 documented as of this encounter
--- OUTSIDE RECORDS SUMMARY | 2025-02-02 13:28 | XMS_ITS | Encounter Summary ---
Author Organization [facility] Address [address] [place] [address] Care Team Providers Care Cloth Packer Name Role Phone Vitaly Manzanares MD Primary Care Provider [phone] Encounter Details Date Type Department Care Team (Late Contact Info) Description 11/27/2003 Outpatient Historical [facility] Internal Medicine [address] [place] [address] Gadiel Christensen MD [address] [place] [phone] Social History Tobacco Use Types Packs/Day Years Used Date Smoking Tobacco: Never Assessed Comments Unknown Sex and Gender Information Value Date Recorded Sex Assigned at Not on file Legal Sex Female 5:01 AM R&D LAB TECHNICIAN Gender Identity Not on file Sexual Orientation Not on file documented as of this encounter Plan of Treatment Upcoming Encounters Date Type Department Care Team (Late Contact Info) Description 04/24/2025 10:30 AM R&D LAB TECHNICIAN Office Visit [facility] Heart and Vascular At [address] [place] [address] Esteban Dueñas MD [address] [place] [address] [place] [address] documented as of this encounter Visit Diagnoses Not on filedocumented in this encounter Care Teams Cloth Packer Relationship Specialty Start Date End Date Vitaly Manzanares MD [address] [place] [address] PCP - General Family Practice 05/19/22 documented as of this encounter
--- OUTSIDE RECORDS SUMMARY | 2025-02-02 13:28 | XMS_ITS | Encounter Summary ---
Author Organization [facility] Address [address] [place] [address] Care Team Providers Care Machine Turner Name Role Phone Vitaly Manzanares MD Primary Care Provider [phone] Encounter Details Date Type Department Care Team (Late Contact Info) Description 01/24/2025 Results Follow-Up [facility] Heart and Vascular At [address] [place] [address] Farida Greene RN ECHO COMPLETE [...] Legal Sex Female 5:01 AM REAL ESTATE SERVICES ADMINISTRATOR Gender Identity Not on file Sexual Orientation Not on file Occupation Industry Job Start Date Job End Date Not on file Not on file Not on file Not on file documented as of this encounter Plan of Treatment Upcoming Encounters Date Type Department Care Team (Late Contact Info) Description 04/24/2025 10:30 AM REAL ESTATE SERVICES ADMINISTRATOR Office Visit [facility] Heart and Vascular At [facility] [address] [facility] [address] [place] [address] Esteban Dueñas MD [address] [facility] [address] [place] [address] documented as of this encounter Visit Diagnoses Not on filedocumented in this encounter Care Teams Machine Turner Relationship Specialty Start Date End Date Vitaly Manzanares MD [address] [place] [address] PCP - General Family Practice 05/19/22 documented as of this encounter
--- OUTSIDE RECORDS SUMMARY | 2025-02-02 13:28 | XMS_ITS | Encounter Summary ---
Author Organization [facility] Address [address] [place] [address] Care Team Providers Care Baseball Winder Name Role Phone Vitaly Manzanares MD Primary Care Provider [phone] Encounter Details Date Type Department Care Team (Late Contact Info) Description 01/28/2004 Outpatient Historical [facility] Internal Medicine [address] [place] [address] Gadiel Christensen MD [address] [place] [phone] Social History Tobacco Use Types Packs/Day Years Used Date Smoking Tobacco: Never Assessed Comments Unknown Sex and Gender Information Value Date Recorded Sex Assigned at Not on file Legal Sex Female 5:01 AM NETWORK ANNOUNCER Gender Identity Not on file Sexual Orientation Not on file documented as of this encounter Plan of Treatment Upcoming Encounters Date Type Department Care Team (Late Contact Info) Description 04/24/2025 10:30 AM NETWORK ANNOUNCER Office Visit [facility] Heart and Vascular At [address] [place] [address] Esteban Dueñas MD [address] [place] [address] [address] [place] [address] documented as of this encounter Visit Diagnoses Not on filedocumented in this encounter Care Teams Baseball Winder Relationship Specialty Start Date End Date Vitaly Manzanares MD [address] [place] [address] PCP - General Family Practice 05/19/22 documented as of this encounter
--- OUTSIDE RECORDS SUMMARY | 2025-02-02 13:28 | XMS_ITS | Encounter Summary ---
Author Organization [facility] Address [address] [place] [address] Care Team Providers Care Campaign Director Name Role Phone Vitaly Manzanares MD Primary Care Provider [phone] Encounter Details Date Type Department Care Team (Late Contact Info) Description 01/15/[address] [facility] Internal Medicine [place] [address] [place] [address] Gadiel Christensen MD [address] [place] [phone] Social History Tobacco Use Types Packs/Day Years Used Date Smoking Tobacco: Never Assessed Comments Unknown Sex and Gender Information Value Date Recorded Sex Assigned at Not on file Legal Sex Female 5:01 AM TEAM FOREMAN Gender Identity Not on file Sexual Orientation Not on file documented as of this encounter Plan of Treatment Upcoming Encounters Date Type Department Care Team (Late Contact Info) Description 04/24/2025 10:30 AM TEAM FOREMAN Office Visit [facility] Heart and Vascular At [address] [place] [address] Esteban Dueñas MD [address] [place] [address] [address] [place] [address] documented as of this encounter Visit Diagnoses Not on filedocumented in this encounter Care Teams Campaign Director Relationship Specialty Start Date End Date Vitaly Manzanares MD [address] [place] [address] PCP - General Family Practice 05/19/22 documented as of this encounter
--- OUTSIDE RECORDS SUMMARY | 2025-02-02 13:28 | XMS_ITS | Encounter Summary ---
Author Organization [facility] Address [address] [place] [address] Care Team Providers Care Sales Analytics Manager Name Role Phone Vitaly Manzanares MD Primary Care Provider [phone] Encounter Details Date Type Department Care Team (Late Contact Info) Description 05/19/2005 Outpatient Historical [facility] Internal Medicine [place] [address] [place] [address] Gadiel Christensen MD [address] [place] [phone] Social History Tobacco Use Types Packs/Day Years Used Date Smoking Tobacco: Never Assessed Comments Unknown Sex and Gender Information Value Date Recorded Sex Assigned at Not on file Legal Sex Female 5:01 AM OIL WELL FISHING TOOL TECHNICIAN Gender Identity Not on file Sexual Orientation Not on file documented as of this encounter Plan of Treatment Upcoming Encounters Date Type Department Care Team (Late Contact Info) Description 04/24/2025 10:30 AM OIL WELL FISHING TOOL TECHNICIAN Office Visit [facility] Heart and Vascular At [address] [place] [address] Esteban Dueñas MD [address] [place] [address] [place] [address] documented as of this encounter Visit Diagnoses Not on filedocumented in this encounter Care Teams Sales Analytics Manager Relationship Specialty Start Date End Date Vitaly Manzanares MD [address] [place] [address] PCP - General Family Practice 05/19/22 documented as of this encounter
--- OUTSIDE RECORDS SUMMARY | 2025-02-02 13:28 | XMS_ITS | Clinical Summary ---
Author Organization [facility] Address [facility] [place] [address] Care Team Providers Care Corporate Planning Manager Name Role Phone Esteban Casanova MD [...] on file Legal Sex Female 1:00 PM RELIEF PILOT Gender Identity Not on file Sexual Orientation [...] this topic Medical Devices Implanted Type Area Protocol Manager Device Identifier Shelf Expiration Date Model / Serial / Lot Iol [employer] - [id number] Implanted:Qty: 1 on 05/22/2019 by Mike Madrigal MD at [facility] Lens [employer] 07/18/2021 [id number] / / [id number] Iol [place] [employer] Zcboo - [id number] Implanted:Qty: 1 on 11/27/2019 by Mike Madrigal MD at [facility] Lens Right: Eye [employer] 09/25/2023 ZCB00 / [id number] / Explanted Type Area Protocol Manager Device Identifier Shelf Expiration Date Model / Serial / Lot 3 Coronary Stents Insurance [employer] MEDICARE Care Teams Corporate Planning Manager Relationship Specialty [place] [address] [place] [address] PCP - General INTERNAL MEDICINE 05/16/19
--- OUTSIDE RECORDS SUMMARY | 2025-02-02 13:28 | XMS_ITS | Encounter Summary ---
Author Organization [facility] Address [address] [place] [address] Care Team Providers Care Practice Representative Name Role Phone Vitaly Manzanares MD Primary Care Provider Encounter Details Date Type Department Care Team (Late Contact Info) Description 03/30/2001 Outpatient Historical [facility] Internal Medicine [address] [place] [address] Gadiel Christensen MD [address] [place] [phone] Social History Tobacco Use Types Packs/Day Years Used Date Smoking Tobacco: Never Assessed Comments Unknown Sex and Gender Information Value Date Recorded Sex Assigned at Not on file Legal Sex Female 5:01 AM BODY ARTIST Gender Identity Not on file Sexual Orientation Not on file documented as of this encounter Plan of Treatment Upcoming Encounters Date Type Department Care Team (Late Contact Info) Description 04/24/2025 10:30 AM BODY ARTIST Office Visit [facility] Heart and Vascular At [address] [place] [address] Esteban Dueñas MD [address] [place] [address] [place] [address] documented as of this encounter Visit Diagnoses Not on filedocumented in this encounter Care Teams Practice Representative Relationship Specialty Start Date End Date Vitaly Manzanares MD [address] [place] [address] PCP - General Family Practice 05/19/22 documented as of this encounter
--- OUTSIDE RECORDS SUMMARY | 2025-02-02 13:28 | XMS_ITS | Encounter Summary ---
Author Organization [facility] Address [address] [place] [address] Care Team Providers Care Radioisotope Technologist Name Role Phone Vitaly Manzanares MD Primary Care Provider Encounter Details Date Type Department Care Team (Late Contact Info) Description 06/15/2003 Outpatient Historical [facility] Internal Medicine [address] [place] [address] Gadiel Christensen MD [address] [place] [phone] Social History Tobacco Use Types Packs/Day Years Used Date Smoking Tobacco: Never Assessed Comments Unknown Sex and Gender Information Value Date Recorded Sex Assigned at Not on file Legal Sex Female 5:01 AM ENT CONSULTANT Gender Identity Not on file Sexual Orientation Not on file documented as of this encounter Plan of Treatment Upcoming Encounters Date Type Department Care Team (Late Contact Info) Description 04/24/2025 10:30 AM ENT CONSULTANT Office Visit [facility] Heart and Vascular At [address] [place] [address] Esteban Dueñas MD [address] [place] [address] [address] [place] [address] documented as of this encounter Visit Diagnoses Not on filedocumented in this encounter Care Teams Radioisotope Technologist Relationship Specialty Start Date End Date Vitaly Manzanares MD [address] [place] [address] PCP - General Family Practice 05/19/22 documented as of this encounter
--- OUTSIDE RECORDS SUMMARY | 2025-02-02 13:28 | XMS_ITS | Encounter Summary ---
Author Organization [facility] Address [address] [place] [address] Care Team Providers Care Stem Dryer Maintainer Name Role Phone Vitaly Manzanares MD Primary Care Provider Encounter Details Date Type Department Care Team (Late Contact Info) Description 02/13/2005 Outpatient Historical [facility] Internal Medicine [address] [place] [address] Gadiel Christensen MD [address] [place] [phone] Social History Tobacco Use Types Packs/Day Years Used Date Smoking Tobacco: Never Assessed Comments Unknown Sex and Gender Information Value Date Recorded Sex Assigned at Not on file Legal Sex Female 5:01 AM NOTCHED BLADE LOADER Gender Identity Not on file Sexual Orientation Not on file documented as of this encounter Plan of Treatment Upcoming Encounters Date Type Department Care Team (Late Contact Info) Description 04/24/2025 10:30 AM NOTCHED BLADE LOADER Office Visit [facility] Heart and Vascular At [address] [place] [address] Esteban Dueñas MD [address] [place] [address] [address] [place] [address] documented as of this encounter Visit Diagnoses Not on filedocumented in this encounter Care Teams Stem Dryer Maintainer Relationship Specialty Start Date End Date Vitaly Manzanares MD [address] [place] [address] PCP - General Family Practice 05/19/22 documented as of this encounter
--- OUTSIDE RECORDS SUMMARY | 2025-02-02 13:28 | XMS_ITS | Encounter Summary ---
Author Organization [facility] Address [address] [place] [address] Care Team Providers Care Coach Mechanic Name Role Phone Vitaly Manzanares MD Primary Care Provider Encounter Details Date Type Department Care Team (Late Contact Info) Description 01/25/2003 Outpatient Historical [facility] Internal Medicine [place] [address] [place] [address] Gadiel Christensen MD [address] [place] [phone] Social History Tobacco Use Types Packs/Day Years Used Date Smoking Tobacco: Never Assessed Comments Unknown Sex and Gender Information Value Date Recorded Sex Assigned at Not on file Legal Sex Female 5:01 AM LITIGATION ASSISTANT Gender Identity Not on file Sexual Orientation Not on file documented as of this encounter Plan of Treatment Upcoming Encounters Date Type Department Care Team (Late Contact Info) Description 04/24/2025 10:30 AM LITIGATION ASSISTANT Office Visit [facility] Heart and Vascular At [address] [place] [address] Esteban Dueñas MD [address] [place] [address] [address] [place] [address] documented as of this encounter Visit Diagnoses Not on filedocumented in this encounter Care Teams Coach Mechanic Relationship Specialty Start Date End Date Vitaly Manzanares MD [address] [place] [address] PCP - General Family Practice 05/19/22 documented as of this encounter
--- OUTSIDE RECORDS SUMMARY | 2025-02-02 13:28 | XMS_ITS | Encounter Summary ---
Author Organization [facility] Address [address] [place] [address] Care Team Providers Care Embossed Or Impressed Lettering Painter Name Role Phone Vitaly Manzanares MD Primary Care Provider Encounter Details Date Type Department Care Team (Late Contact Info) Description 06/04/2005 Outpatient Historical [facility] Internal Medicine [place] [address] [place] [address] Gadiel Christensen MD [address] [place] [phone] Social History Tobacco Use Types Packs/Day Years Used Date Smoking Tobacco: Never Assessed Comments Unknown Sex and Gender Information Value Date Recorded Sex Assigned at Not on file Legal Sex Female 5:01 AM EXPLOSION WELDER Gender Identity Not on file Sexual Orientation Not on file documented as of this encounter Plan of Treatment Upcoming Encounters Date Type Department Care Team (Late Contact Info) Description 04/24/2025 10:30 AM EXPLOSION WELDER Office Visit [facility] Heart and Vascular At [address] [place] [address] Esteban Dueñas MD [address] [place] [address] [address] [place] [address] documented as of this encounter Visit Diagnoses Not on filedocumented in this encounter Care Teams Embossed Or Impressed Lettering Painter Relationship Specialty Start Date End Date Vitaly Manzanares MD [address] [place] [address] PCP - General Family Practice 05/19/22 documented as of this encounter
--- OUTSIDE RECORDS SUMMARY | 2025-02-02 13:28 | XMS_ITS | Clinical Summary ---
Author Organization [facility] Address [address] [place] [address] Phone Care Team Providers Care Apricot Washer Name Role Phone Vitaly Manzanares MD Primary Care Provider [phone] Medications ISOSORBIDE DINITRATE PO Take by mouth. [...] Encounters Date Type Department Care Team Description 02/02/2025 11:00 AM SHRIMPING BOAT CAPTAIN Outpatient Clinic Visit [facility] [address] [place] [address] Marcell Joyner, SYSTEMS SOFTWARE DEVELOPER Adjustment disorder with depressed mood (Primary Dx) Discharge Disposition: Discharged to home or Selfcare 02/02/2025 Travel 12/25/2024 1:30 PM CDT [facility]patient [facility] [address] [place] [address] Marcell Joyner LCSW Adjustment disorder with depressed mood (Primary Dx) Discharge Disposition: Discharged to home or Selfcare 12/25/2024 Travel 12/11/2024 10:30 AM CDT [facility] [address] [place] [address] Marcell Joyner LCSW Adjustment disorder with depressed mood (Primary Dx) Discharge Disposition: Discharged to home or Selfcare 12/11/2024 Travel 11/21/2024 9:15 AM CDT [facility] [address] [place] [address] Marcell Joyner LCSW Adjustment disorder with depressed [...] st Contact Info) Description 02/23/2025 10:30 AM SHRIMPING BOAT CAPTAIN [facility] [address] [place] [address] Marcell Joyner LCSW [address] [place] [address] Health Maintenance Due Date Last Done Comments Hepatitis C Virus (HCV) Screening 1950 TdaP Immunization 1950 Cologuard 1994 Colonoscopy 1994 Colorectal Cancer Screening 1994 Immunochemical Fecal Occult Blood 1994 Zoster Immunization (1 of 2) 12/21/1999 Pneumococcal Immunization (5 0+ years) (2 of 2 - PCV) 01/10/2011 01/10/2010 DEXA Bone Density 06/27/2022 06/27/2020 Influenza Immunization (#1) 2024 SARS-COV-2 Immunization (1 - season) 2024 Respiratory Syncytial Virus (RSV) Immunization [...] Health Behavioral Health On track(2024 10:50 AM SHRIMPING BOAT CAPTAIN) Yes Marcell Joyner, SYSTEMS SOFTWARE DEVELOPER Note: I need help coping with all my physical health issues and caregiver stress along with physical limitations from my heart. Goal/Objective: Improve coping skills. Anticipated Time Frame for Goal Completion: 6 months Goal Reviewed with: patient Readiness to change: Ready to change Department associated with goal: [facility] Steps to achieve goal: [...] sessions Insurance MEDICARE C AETNA Care Teams Apricot Washer Relationship Specialty Start Date End Date Vitaly Manzanares MD [address] [place] [address] PCP - General Family Medicine 04/21/24
--- OUTSIDE RECORDS SUMMARY | 2025-02-02 13:28 | XMS_ITS | Encounter Summary ---
Author Organization [facility] Address [address] [place] [address] Care Team Providers Care Supervisor Frame Assembly Name Role Phone Vitaly Manzanares MD Primary Care Provider [phone] Encounter Details Date Type Department Care Team (Late st Contact Info) Description 04/04/2004 Outpatient Historical [facility] Gadiel Christensen MD [address] [place] [phone] DISC DIS NEC/NOS-UNSPEC (Primary Dx) Social History Tobacco Use Types Packs/Day Years Used Date Smoking Tobacco: Never Assessed Comments Unknown Sex and Gender Information Value Date Recorded Sex Assigned at Not on file Legal Sex Female 5:01 AM ANAESTHESIOLOGIST Gender Identity Not on file Sexual Orientation Not on file documented as of this encounter Plan of Treatment Upcoming Encounters Date Type Department Care Team (Late Contact Info) Description 04/24/2025 10:30 AM ANAESTHESIOLOGIST Office Visit [facility] Heart and Vascular At [facility] [address] [facility] [address] [place] [address] Esteban Dueñas MD [facility] [address] [facility] [address] [place] [address] documented as of this encounter Visit Diagnoses Diagnosis Other and unspecified disc disorder of unspecified region- Primary documented in this encounter Care Teams Supervisor Frame Assembly Relationship Specialty Start Date End Date Vitaly Manzanares MD [address] [place] [address] PCP - General Family Practice 05/19/22 documented as of this encounter
--- OUTSIDE RECORDS SUMMARY | 2025-02-02 13:28 | XMS_ITS | Encounter Summary ---
Author Organization [facility] Address [address] [place] [address] Care Team Providers Care Erp Pm Name Role Phone Vitaly Manzanares MD Primary Care Provider [phone] Encounter Details Date Type Department Care Team (Late Contact Info) Description 06/28/2006 Outpatient Historical [facility] Internal Medicine [place] [address] [place] [address] Gadiel Christensen MD [address] [place] [phone] Social History Tobacco Use Types Packs/Day Years Used Date Smoking Tobacco: Never Assessed Comments Unknown Sex and Gender Information Value Date Recorded Sex Assigned at Not on file Legal Sex Female 5:01 AM CARBON CAPTURE POWER PLANT MANAGER Gender Identity Not on file Sexual Orientation Not on file documented as of this encounter Plan of Treatment Upcoming Encounters Date Type Department Care Team (Late Contact Info) Description 04/24/2025 10:30 AM CARBON CAPTURE POWER PLANT MANAGER Office Visit [facility] Heart and Vascular At [address] [place] [address] Esteban Dueñas MD [address] [place] [address] [address] [place] [address] documented as of this encounter Visit Diagnoses Not on filedocumented in this encounter Care Teams Erp Pm Relationship Specialty Start Date End Date Vitaly Manzanares MD [address] [place] [address] PCP - General Family Practice 05/19/22 documented as of this encounter
--- OUTSIDE RECORDS SUMMARY | 2025-02-02 13:28 | XMS_ITS | Encounter Summary ---
Author Organization [facility] Address [address] [place] [address] Care Team Providers Care Merchandise Displayer Name Role Phone Vitaly Manzanares MD Primary Care Provider Encounter Details Date Type Department Care Team (Late st Contact Info) Description 05/19/2004 Outpatient Historical [facility] Gadiel Christensen MD [address] [place] [phone] ABNORMAL FINDING-SKULL & HEAD (Primary Dx) Social History Tobacco Use Types Packs/Day Years Used Date Smoking Tobacco: Never Assessed Comments Unknown Sex and Gender Information Value Date Recorded Sex Assigned at Not on file Legal Sex Female 5:01 AM AWNING HANGER Gender Identity Not on file Sexual Orientation Not on file documented as of this encounter Plan of Treatment Upcoming Encounters Date Type Department Care Team (Late Contact Info) Description 04/24/2025 10:30 AM AWNING HANGER Office Visit [facility] Heart and Vascular At [place] [address] [facility] [address] [place] [address] Esteban Dueñas MD [address] [place] [address] [address] [place] [address] documented as of this encounter Visit Diagnoses Diagnosis Nonspecific (abnormal) findings on radiological and other examination of skull and head- Primary documented in this encounter Care Teams Merchandise Displayer Relationship Specialty Start Date End Date Vitaly Manzanares MD [address] [place] [address] PCP - General Family Practice 05/19/22 documented as of this encounter
--- OUTSIDE RECORDS SUMMARY | 2025-02-02 13:28 | XMS_ITS | Encounter Summary ---
Author Organization [facility] Address [address] [place] [address] Care Team Providers Care Glass Inserter Name Role Phone Vitaly Manzanares MD Primary Care Provider Encounter Details Date Type Department Care Team (Late Contact Info) Description 10/30/2003 Outpatient Historical [facility] Internal Medicine [place] [address] [place] [address] Gadiel Christensen MD [address] [place] [phone] Social History Tobacco Use Types Packs/Day Years Used Date Smoking Tobacco: Never Assessed Comments Unknown Sex and Gender Information Value Date Recorded Sex Assigned at Not on file Legal Sex Female 5:01 AM WIRE STRETCHER Gender Identity Not on file Sexual Orientation Not on file documented as of this encounter Plan of Treatment Upcoming Encounters Date Type Department Care Team (Late Contact Info) Description 04/24/2025 10:30 AM WIRE STRETCHER Office Visit [facility] Heart and Vascular At [address] [place] [address] Esteban Dueñas MD [address] [place] [address] [place] [address] documented as of this encounter Visit Diagnoses Not on filedocumented in this encounter Care Teams Glass Inserter Relationship Specialty Start Date End Date Vitaly Manzanares MD [address] [place] [address] PCP - General Family Practice 05/19/22 documented as of this encounter
--- OUTSIDE RECORDS SUMMARY | 2025-02-02 13:28 | XMS_ITS | Encounter Summary ---
Author Organization [facility] Address [address] [place] [address] Care Team Providers Care Printing Manager Name Role Phone Vitaly Manzanares MD Primary Care Provider [phone] Encounter Details Date Type Department Care Team (Late Contact Info) Description 08/19/2005 Outpatient Historical [facility] Internal Medicine [place] [address] [place] [address] Gadiel Christensen MD [address] [place] [phone] Social History Tobacco Use Types Packs/Day Years Used Date Smoking Tobacco: Never Assessed Comments Unknown Sex and Gender Information Value Date Recorded Sex Assigned at Not on file Legal Sex Female 5:01 AM WASTE MANAGEMENT RECYCLING TECHNICIAN Gender Identity Not on file Sexual Orientation Not on file documented as of this encounter Plan of Treatment Upcoming Encounters Date Type Department Care Team (Late Contact Info) Description 04/24/2025 10:30 AM WASTE MANAGEMENT RECYCLING TECHNICIAN Office Visit [facility] Heart and Vascular At [address] [place] [address] Esteban Dueñas MD [address] [place] [address] [place] [address] documented as of this encounter Visit Diagnoses Not on filedocumented in this encounter Care Teams Printing Manager Relationship Specialty Start Date End Date Vitaly Manzanares MD [address] [place] [address] PCP - General Family Practice 05/19/22 documented as of this encounter
--- OUTSIDE RECORDS SUMMARY | 2025-02-02 13:28 | XMS_ITS | Encounter Summary ---
Author Organization [facility] Address [address] [place] [address] Care Team Providers Care Business Intelligence Manager Name Role Phone Vitaly Manzanares MD Primary Care Provider Encounter Details Date Type Department Care Team (Late st Contact Info) Description 12/28/2003 Outpatient Historical [facility] Gadiel Christensen MD [address] [place] [phone] SCREENING MAMM-MAILG NEOPL-OTHER (Primary Dx) Social History Tobacco Use Types Packs/Day Years Used Date Smoking Tobacco: Never Assessed Comments Unknown Sex and Gender Information Value Date Recorded Sex Assigned at Not on file Legal Sex Female 5:01 AM COMMUNITY RELATIONS ADVISOR Gender Identity Not on file Sexual Orientation Not on file documented as of this encounter Plan of Treatment Upcoming Encounters Date Type Department Care Team (Late Contact Info) Description 04/24/2025 10:30 AM COMMUNITY RELATIONS ADVISOR Office Visit [facility] Heart and Vascular At [facility] [address] [facility] [address] [place] [address] Esteban Dueñas MD [facility] [address] [facility] [address] [place] [address] documented as of this encounter Visit Diagnoses Diagnosis Other screening mammogram- Primary documented in this encounter Care Teams Business Intelligence Manager Relationship Specialty Start Date End Date Vitaly Manzanares MD [address] [place] [address] PCP - General Family Practice 05/19/22 documented as of this encounter
--- OUTSIDE RECORDS SUMMARY | 2025-02-02 13:28 | XMS_ITS | Encounter Summary ---
Author Organization [facility] Address [address] [place] [address] Care Team Providers Care Tablet Repair Name Role Phone Vitaly Manzanares MD Primary Care Provider [phone] Encounter Details Date Type Department Care Team (Late Contact Info) Description 12/30/2001 Outpatient Historical [facility] Internal Medicine [place] [address] [place] [address] Esteban Otto MD [address] [place] [address] Social History Tobacco Use Types Packs/Day Years Used Date Smoking Tobacco: Never Assessed Comments Unknown Sex and Gender Information Value Date Recorded Sex Assigned at Not on file Legal Sex Female 5:01 AM SHIP KEEPER Gender Identity Not on file Sexual Orientation Not on file documented as of this encounter Plan of Treatment Upcoming Encounters Date Type Department Care Team (Late Contact Info) Description 04/24/2025 10:30 AM SHIP KEEPER Office Visit [facility] Heart and Vascular At [place] [address] [address] [facility] [address] [place] [address] Esteban Dueñas MD [facility] [address] [facility] [address] [place] [address] documented as of this encounter Visit Diagnoses Not on filedocumented in this encounter Care Teams Tablet Repair Relationship Specialty Start Date End Date Vitaly Manzanares MD [address] [place] [address] PCP - General Family Practice 05/19/22 documented as of this encounter
--- OUTSIDE RECORDS SUMMARY | 2025-02-02 13:28 | XMS_ITS | Encounter Summary ---
Author Organization [facility] Address [address] [place] [address] Care Team Providers Care Rn Mental Health Name Role Phone Vitaly Manzanares MD Primary Care Provider [phone] Encounter Details Date Type Department Care Team (Late Contact Info) Description 07/18/2001 Outpatient Historical [facility] Internal Medicine [place] [address] [place] [address] Gadiel Christensen MD [address] [place] [phone] Social History Tobacco Use Types Packs/Day Years Used Date Smoking Tobacco: Never Assessed Comments Unknown Sex and Gender Information Value Date Recorded Sex Assigned at Not on file Legal Sex Female 5:01 AM LINK WIRE FABRIC MACHINE TENDER Gender Identity Not on file Sexual Orientation Not on file documented as of this encounter Plan of Treatment Upcoming Encounters Date Type Department Care Team (Late Contact Info) Description 04/24/2025 10:30 AM LINK WIRE FABRIC MACHINE TENDER Office Visit [facility] Heart and Vascular At [address] [place] [address] Esteban Dueñas MD [address] [place] [address] [place] [address] documented as of this encounter Visit Diagnoses Not on filedocumented in this encounter Care Teams Rn Mental Health Relationship Specialty Start Date End Date Vitaly Manzanares MD [address] [place] [address] PCP - General Family Practice 05/19/22 documented as of this encounter
--- OUTSIDE RECORDS SUMMARY | 2025-02-02 13:28 | XMS_ITS | Encounter Summary ---
Author Organization [facility] Address [address] [place] [address] Care Team Providers Care Structural Analysis Engineer Name Role Phone Vitaly Manzanares MD Primary Care Provider Encounter Details Date Type Department Care Team (Late st Contact Info) Description 03/27/2004 Outpatient Historical [facility] DEPT Gadiel Christensen MD [address] [place] [phone] CHRONIC SINUSITIS NOS (Primary Dx) Social History Tobacco Use Types Packs/Day Years Used Date Smoking Tobacco: Never Assessed Comments Unknown Sex and Gender Information Value Date Recorded Sex Assigned at Not on file Legal Sex Female 5:01 AM COLORING ROOM MAN Gender Identity Not on file Sexual Orientation Not on file documented as of this encounter Plan of Treatment Upcoming Encounters Date Type Department Care Team (Late Contact Info) Description 04/24/2025 10:30 AM COLORING ROOM MAN Office Visit [facility] Heart and Vascular At [address] [place] [address] Esteban Dueñas MD [address] [place] [address] [address] [place] [address] documented as of this encounter Visit Diagnoses Diagnosis Unspecified sinusitis (chronic)- Primary documented in this encounter Care Teams Structural Analysis Engineer Relationship Specialty Start Date End Date Vitaly Manzanares MD [address] [place] [address] PCP - General Family Practice 05/19/22 documented as of this encounter
--- OUTSIDE RECORDS SUMMARY | 2025-02-02 13:28 | XMS_ITS | Clinical Summary ---
Author Organization [facility] Address [address] [place] [address] Care Team Providers Care Security Control Assessor Name Role Phone Vitaly Manzanares MD Primary Care Provider [phone] Allergies Active Allergy Reactions Criticality Noted Date [...] Breath/Wheezing,Rash High 02/24/2016 Naratriptan Rash Low 04/22/2007 Exbewgsqibty-Yfc-Rjgvtusu Unknown 04/22/2007 Oseltamivir Phosphate Rash Low 04/22/2007 Penicillins Unknown 04/22/2007 As a child Pneumococcal Vaccine Anaphylaxis,Rash High 1 Prochlorperazine Edisylate Unknown 8 Propoxyphene Rash Low 04/22/2007 Isaban Anaphylaxis,Shortnes s of Breath/Wheezing High 02/24/2016 Sulfa [...] Not taking Active fluticasone (FLONASE) 50 mcg/spray [place], Suspension USE TWO SPRAYS IN EACH NOSTRIL [...] needed for Headaches. 100 Tablet 019 Active Additional Information Patient not taking.Reported on [...] 1 Tablet by mouth every 7 days. 09/17/2 024 Active coenzyme Q10 (Co Q-10) 200 mg CapsuleIndication s:Coronary artery disease involving [place] heart with unstable angina pectoris, unspecified vessel [...] migh t be different from the original. 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 06/09/2016 Aspirin [...] Encounters Date Type Department Care Team Description 01/30/2025 External Device Data STL ABSTRACTION Provider, Abstract 01/24/2025 9:37 AM SACK DEPARTMENT SUPERVISOR - 01/24/2025 11:59 PM SACK DEPARTMENT SUPERVISOR Hospital Encounter [facility] [place] [address] [place] [address] Richard Dueñas MD Discharge Disposition: Home or Self Care 01/24/2025 Results Follow-Up [facility] [address] [place] [phone] Farida Greene RN ECHO COMPLETE - CONTRAST AND STRAIN IF INDICATED 01/21/2025 Refill [facility] [address] [place] [phone] Richard Dueñas MD 01/17/2025 10:15 AM SACK DEPARTMENT SUPERVISOR Office Visit [facility] [address] [place] [phone] Richard Dueñas MD 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 (Primary Dx); S/P coronary artery stents placement, 02/26/16, 11/13/16, 05/19/22, 01/05, 02/23/24; Pure hypercholesterolemia; Essential hypertension; Allergic reaction to dye, subsequent encounter 12/27/2024 10:01 AM CDT - 12/27/2024 10:54 AM CDT Surgery [facility] Qualitative Field Project Manager [address] [place] [address] Conor Grimm MD Left heart cath 12/27/2024 7:11 AM CDT - 12/27/2024 2:24 PM CDT Hospital Encounter [facility] Interventional Care [address] [place] [address] Conor Grimm MD Atherosclerosis of [place] coronary artery of [place] heart, unspecified whether angina present Discharge Disposition: Home or Self Care 12/27/2024 7:10 AM CDT - 12/27/2024 11:59 PM CDT Hospital Encounter [facility] Laboratory Services [address] [facility] [place] [address] Conor Grimm MD Discharge Disposition: Home or Self Care 12/26/2024 External Device Data STL ABSTRACTION Provider, Abstract 12/25/2024 Abstract [facility] [address] [address] [place] [phone] Richard Dueñas MD 12/18/2024 9:45 AM CDT Video Visit [facility] At [address] [place] [address] Richard Dueñas MD 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 (Primary Dx); Left ventricular systolic dysfunction, NYHA class 2; S/P coronary artery stents placement, 02/26/16, 11/13/16, 05/19/22, 01/05, 02/23/24; Shortness of breath; Allergic reaction to dye, subsequent encounter; Aspirin allergy; Chronic fatigue; Essential hypertension; Pure hypercholesterolemia 12/18/2024 Prep for Surgery [facility] [address] [place] [address] Conor Grimm MD 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 (Primary Dx); Chronic systolic congestive heart failure (CMS/HCC); Atherosclerosis of [place] coronary artery of [place] heart without angina pectoris 12/18/2024 Telephone [facility] [address] [place] [address] Richard Dueñas MD needs cath 11/24/2024 Abstract [facility] [address] [place] [address] Richard Dueñas MD 11/23/2024 Refill [facility] [address] [place] [address] Richard Dueñas MD 11/22/2024 Telephone [facility] [address] [place] [address] Richard Dueñas MD monitor results from Last 3 Months Immunizations Immunization Administration [...] on file Legal Sex Female 5:01 AM SACK DEPARTMENT SUPERVISOR Gender Identity Not on file Sexual Orientation Not on file Occupation Industry Job Start Date Job End Date Not on file Not on file Not on file Not on file Last Filed Vital Signs Vital Sign Reading Time Taken Comments Blood Pressure 98/60 01/17/2025 9:54 AM SACK DEPARTMENT SUPERVISOR Pulse 88 01/17/2025 9:54 AM SACK DEPARTMENT SUPERVISOR Temperature 36.7 C (98 F) 12/27/2024 7:29 AM CDT Respiratory Rate 15 12/27/2024 2:00 PM CDT Oxygen Saturation 97% 01/17/2025 9:54 AM SACK DEPARTMENT SUPERVISOR Inhaled Oxygen Concentration - - Weight 49.9 kg (110 lb) 01/17/2025 9:54 AM SACK DEPARTMENT SUPERVISOR Height 152.4 cm (5') 01/17/2025 9:54 AM SACK DEPARTMENT SUPERVISOR Body Mass Index 21.48 01/17/2025 9:54 AM SACK DEPARTMENT SUPERVISOR Plan of Treatment Upcoming Encounters Date Type Department Care Team (Late st Contact Info) Description 04/24/2025 10:30 AM SACK DEPARTMENT SUPERVISOR Office Visit [facility] [address] [place] [address] Richard Dueñas MD [facility] [address] [facility] [address] [place] [address] Health Maintenance Due Date Last [...] 06/27/2020, 2020 Medical Devices Implanted Type Area Block Sawyer Device Identifier Shelf Expiration Date Model / Serial / Lot Daniele- 016 Implanted:Qty : 1 on 02/26/2016 by Rony Deleon MD Stent Coronary [employer] 02/11/2017 / / [id number] Description:bare metal stent placed in the obtuse marginal coronary artery number 1 Daniele- 016 Implanted:Qty : 1 on 02/26/2016 by Rony Deleon MD Stent Coronary [employer] 05/12/2018 / / [id number] Description:bare metal stent placed in the right coronary artery Daniele- 016 Implanted:Qty : 1 on 02/26/2016 by Rony Deleon MD Stent Coronary [employer] 04/14/2017 / / [id number] Description:bare metal stent placed in the right coronary artery Promus Premier- 017 Implanted:03/2016 by Arslan Gale MD (Quantity not on file) Stent [employer] 09/28/2017 / / [id number] Description:OM1 Promus Premier- 017 Implanted:03/2016 by Arslan Gale MD (Quantity not on file) Stent [employer] 09/28/2017 / / [id number] Description:RCA Promus Premier- 017 Implanted:03/2016 by Arslan Gale MD (Quantity not on file) Stent [employer] 02/14/2018 / / [id number] Description:rca Stent Synergy Xd 3.0x12mm Evrlms Elut [id number] - [id number] Implanted:Qty : 1 on 05/19/2022 by Conor Grimm MD at [facility] Stent Right: Coronary Swarm64 KIM[employer] 12/15/2023 [id number] / / [id number] Stent [place] Temo 3.0x18mm Rx [id number] - [id number] Implanted:Qty : 1 on 12/17/2023 by Conor Grimm MD at [facility] Stent Right: Coronary [employer] [id number] 02/03/2026 [id number] 18UX / / [id number] Stent [place] Temo 3.81h03na Rx [id number] - [id number] Implanted:Qty : 1 on 02/23/2024 by Conor Grimm MD at [facility] Stent N/A: Coronary [employer] [id number] 04/26/2026 [id number] 15UX / / [id number] Procedures Procedure Name Priority Date/Time Associated Diagnosis Comments ECHO COMPLETE Routine 01/24/2025 10:31 AM SACK DEPARTMENT SUPERVISOR 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 CORONARY PRESSURE WIRE Routine 12/27/2024 10:27 AM CDT Atherosclerosis of [place] coronary artery of [place] heart, unspecified whether angina present Chronic systolic (congestive) heart failure (CMS/HCC) Coronary artery disease involving [place] coronary artery of [place] heart, unspecified whether angina present LEFT HEART CATH Routine 12/27/2024 10:27 AM CDT Atherosclerosis of [place] coronary artery of [place] heart, unspecified whether angina present Chronic systolic (congestive) heart failure (CMS/HCC) Coronary artery disease involving [place] coronary artery of [place] heart, unspecified whether angina present MOBILE CARDIAC [...] AND STRAIN IF INDICATED (01/24/2025 10:31 AM SACK DEPARTMENT SUPERVISOR) EJECTION FRACTION 60 INTERFACE SYSTEM 01/24/2025 9:54 AM SACK DEPARTMENT SUPERVISOR Narrative INTERFACE SYSTEM - 01/24/2025 11:00 AM SACK DEPARTMENT SUPERVISOR [address] [place] [place] [address] [email or web address] Transthoracic Echocardiogram Patient: Jermaine Nguyen Study ID: [id number] Gender: F : 1950 Age: 74 Race: ASHLEY Height 152.4cm Study Date: 01/24/2025 Weight: 49.9kg Access. #: [id number] BP: *Referring Physician:Richard Tariq M.D., John M.D. *Ordering Physician:Richard Tariq M.D. middle school spanish teacher: Nurse: STUDY CONCLUSIONS: SUMMARY: - Left ventricle: [...] Prepared and Electronically Authenticated Steve De Jesus [id number] Procedure Note Steve De Jesus MD - 01/24/[address] [address] [email or web address] Transthoracic Echocardiogram Patient: Jermaine Nguyen Study ID: [id number] Gender: F : 1950 Age: 74 Race: ASHLEY Height 152.4cm Study Date: 01/24/2025 Weight: 49.9kg Access. #: [id number] BP: *Referring Physician:Richard Tariq M.D., John M.D. *Ordering Physician:Richard Tariq M.D. middle school spanish teacher: Nurse: STUDY CONCLUSIONS: SUMMARY: - Left ventricle: [...] Prepared and Electronically Authenticated Steve De Jesus [id number] us Richard Dueñas MD ORDERABLES Final Result [...] regularly as per usual Conor Grimm MD [facility] Interventions ([place] [facility]) [address] ([facility]) [address] [place] [address] Procedure Details CARDIAC CATHETERIZATION CORONARY ANGIOGRAM IFR: [...] right radial artery and placed a 6 Swedish sheath via the modified Seldinger technique. We [...] INTERFACE SYSTEM - 11/10/2024 11:06 AM CDT [facility] [address] [place] [address] Test Date: 2024-11-08 Pat Name: JERMAINE NGUYEN Department: Room: Gender: Female Cosmetic Maker: : 1950 Requested By: RICHARD Novak Order Number: [id number] Reading MD: Steve De Jesus Interpretive Statements [...] Note Steve De Jesus MD - 11/10/2024 [facility] [address] , [place] [address] Test Date: 2024-11-08 Pat Name: JERMAINE NGUYEN Department: Room: Gender: Female Cosmetic Maker: : 1950 Requested By: RICHARD Novak Order Number: [id number] Cee MD: Steve De Jesus Interpretive Statements Patient [...] 1 OR MORE SITES (06/27/2020) T-SCORE FEMUR [facility] T-SCORE FEMUR (LEFT) [facility] T-SCORE FEMUR (RIGHT) [facility] T-SCORE FEMUR NECK [facility] T-SCORE FEMORAL NECK (LEFT) [facility] T-SCORE FEMORAL NECK (RIGHT) [facility] T-SCORE HEEL [facility] T-SCORE HEEL (LEFT) [facility] T-SCORE HEEL (RIGHT) [facility] T-SCORE HIP [facility] T-SCORE HIP (LEFT) [facility] T-SCORE HIP (RIGHT) [facility] T-SCORE WRIST [facility] T-SCORE WRIST (LEFT) [facility] T-SCORE WRIST (RIGHT) [facility] T-SCORE SPINE [facility] Anatomical Region Laterality Modality Other us Richard Casanova MD DIAGNOSTIC IMAGING ORD ERABLES Final Result * COLON CANCER SCREEN, STOOL DNA (10/17/2018 12:16 PM CDT) COLOGUARD RESULT Negative Not Applicable [facility] Comment: A negative result indicates [...] screened with both Cologuard and colonoscopy. (Jordan Hernandez al, N Engl J Med 2014;370(14):5297-9174) COLOGUARD RE-SCREENING RECOMMENDATION: Periodic routine colorectal cancer screening is an important part of preventive healthcare for asymptomatic persons at average risk for colorectal cancer. Following a negative Cologuard result, the [place] Cancer Society and U.S. Multi-Society Task Force screening guidelines recommend a Cologuard re-screening interval of 3 years. References: [place] Cancer Society (ACS). Colorectal cancer prevention and early detection. [place], [place]: [place] Cancer Society; [updated 2015Jul 06]. https://www.cancer.org/cancer/auqkc-nlcilu-woeuji/jsoocwxyb-ksdqegmwg-ahevxky/ac s-rec ommendations.html. Accessed November 12, 2017; Brayden DK, Amanda MONDRAGON, Jacquie HenryK, Colorectal Cancer Screening: Recommendations for Physicians and Patients from the U.S. Multi-Society Task Force on Colorectal Cancer Screening, Am J Gastroenterology 2017; 112:8509-5112. Test Type: Composite algorithmic analysis of stool [...] can be accessed at the following location: www.[employer]/results. Additional description of the Cologuard test process, warnings and precautions can be found at www.cologuardtest.com. Rx Only. Stool STOOL SPECIMEN / Unknown 10/17/2018 12:16 PM CDT 10/18/2018 7:16 PM CDT Richard Casanova MD BODY FLUIDS AND STOOLS Final Result [facility] CLIA # [id number] [address] [address] [place] [address] from Last 3 Months or Most Recently Relevant to Health Maintenance Insurance RX AETNA Medicare Part D AETNA O [facility] Advance Directives For more information, please contact: [phone] Documents on File Type Date Recorded Patient Benefits Technician Expl anation Advance Directive POA 08/31/2023 3:26 [...] 12:58 PM 11/14/2016 12:57 PM Care Teams Security Control Assessor Relationship Specialty Start Date End Date Vitaly Manzanares MD [address] [place] [address] PCP - General Family Practice 05/19/22
--- OUTSIDE RECORDS SUMMARY | 2025-02-02 13:28 | XMS_ITS | Encounter Summary ---
Author Organization [facility] Address [facility] [place] [address] Care Team Providers Care Plastic Panel Installer Name Role Phone Esteban Casanova MD Primary Care Provider Encounter Details Date Type Department Care Team (Late st Contact Info) Description 11/21/2019 Prep for Procedure [facility] [address] [place] [address] Mike Madrigal MD [address] [facility] [address] [place] [address] Social History Tobacco Use Types Packs/Day Years Used Date Smoking Tobacco: Never Smokeless Tobacco: Never Alcohol Use Standard Drinks/Week Comments Not Currently 0 (1 standard drink = 0.6 oz pur e alcohol) Comments No Sex and Gender Information Value Date Recorded Sex Assigned at Not on file Legal Sex Female 1:00 PM SUPERVISOR 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 Due to the current public health emergency, [facility] is receiving a high volume of samples [...] about COVID-19 can be found at the [facility] website: www.[employer].Woofound/Covid19. Test performed at [facility] [place] [address] [place] [address] Director: NESSA MCNALLY DO,MPH FIRST TEST UNKNOWN 11/24/2019 3:42 PM CDT [facility] EMPLOYED IN HEALTHCARE NO 11/24/2019 3:42 PM CDT [facility] SYMPTOMATIC DEFINED BY CDC NO 11/24/2019 3:42 PM CDT [facility] DATE OF SYMPTOM ONSET NON-APPLICABLE 11/24/2019 3:42 PM CDT [facility] HOSPITALIZATION STATUS NO 11/24/2019 3:42 PM CDT [facility] PATIENT IN ICU NO 11/24/2019 3:42 PM CDT [facility] RESIDENT OF CONGREGATE CARE NO 11/24/2019 3:42 PM CDT [facility] NO 11/24/2019 3:42 PM CDT [facility] PATIENT'S RACE UNKNOWN 11/24/2019 3:42 PM CDT [facility] ETHNICITY UNKNOWN 11/24/2019 3:42 PM CDT [facility] SOURCE (QST) NASOPHARYNGEAL SWAB 11/24/2019 11:54 AM CDT [facility] NASOPHARYNGEAL SWAB / Unknown 11/24/2019 11:57 AM CDT us Mike Madrigal MD MICROBIOLOGY - GENERAL ORDERAB LES Final Result Performing Organization Address City/State/[facility] Co de Phone Number [facility] [address] [place] [address], [place] [phone] [facility] [id number] [place] [address], documented in this encounter Visit Diagnoses Diagnosis Preop testing- Primary Preoperative examination, unspecified documented in this encounter Additional Health Concerns Infection Onset Date Last Indicated Resolved Time COVID-19 Rule Out 11/24/2019 11/24/2019 11/25/2019 4:01 PM CDT documented as of this encounter Care Teams Plastic Panel Installer Relationship Specialty Start [place] [address] [place] [address] PCP - General INTERNAL MEDICINE 05/16/19 documented as of this encounter
--- OUTSIDE RECORDS SUMMARY | 2025-02-02 13:28 | XMS_ITS | Encounter Summary ---
Author Organization [facility] Address [address] [place] [address] Care Team Providers Care Hall Coordinator Name Role Phone Vitaly Manzanares MD Primary Care Provider [phone] Encounter Details Date Type Department Care Team (Late st Contact Info) Description 03/09/2006 Outpatient Historical [facility] Gadiel Christensen MD [address] [place] [id number] Essential Hypertension, Benign (Primary Dx) Social History Tobacco Use Types Packs/Day Years Used Date Smoking Tobacco: Never Assessed Comments Unknown Sex and Gender Information Value Date Recorded Sex Assigned at Not on file Legal Sex Female 5:01 AM DESIGN CHECKER Gender Identity Not on file Sexual Orientation Not on file documented as of this encounter Plan of Treatment Upcoming Encounters Date Type Department Care Team (Late Contact Info) Description 04/24/2025 10:30 AM DESIGN CHECKER Office Visit [facility] At [place] [address] [facility] [address] [place] [address] Esteban Dueñas MD [address] [place] [address] [address] [place] [address] documented as of this encounter Procedures Procedure Name Priority Date/Time Associated Diagnosis Comments TSH REFLEXIVE Routine 03/09/2006 9:00 AM DESIGN CHECKER CBC WITH DIFFERENTIAL Routine 03/09/2006 9:00 AM DESIGN CHECKER CBC WITH DIFFERENTIAL Routine 03/09/2006 9:00 AM DESIGN CHECKER CANCER ANTIGEN 125 Routine 03/09/2006 9: 00 AM DESIGN CHECKER MAGNESIUM LEVEL Routine 03/09/2006 9:00 AM DESIGN CHECKER LIPID PANEL Routine 03/09/2006 9:00 AM DESIGN CHECKER COMPREHENSIVE METABOLIC PANEL Routine 03/09/2006 9:00 AM DESIGN CHECKER documented in this encounter Results * CBC WITH DIFFERENTIAL (03/09/2006 9:00 AM DESIGN CHECKER) NEUTROPHILS 54 45 - 70 % INTERFAC [...] 0.20 K/uL INTERFACE SYSTEM 03/09/2006 9:00 AM DESIGN CHECKER us Gadiel Christensen MD HEMATOLOGY ORDERABLES Final Re sult INTERFACE SYSTEM Refer to clinic/hospital department * (ABNORMAL) CBC WITH DIFFERENTIAL (03/09/2006 9:00 AM DESIGN CHECKER) WBC 5.4 4.0 - 9.8 K/uL INTERFACE [...] 12.4 fL INTERFACE SYSTEM 03/09/2006 9:00 AM DESIGN CHECKER Gadiel Christensen MD HEMATOLOGY ORDERABLES Final Re sult Performing Organization Address [facility] Phone Number INTERFACE SYSTEM Refer to clinic/hospital department * TSH REFLEXIVE (03/09/2006 9:00 AM DESIGN CHECKER) TSH 1.82 0.27 - 4.20 uU/mL INTERFACE SYSTEM 03/09/2006 9:00 AM DESIGN CHECKER Gadiel Christensen MD CHEMISTRY ORDERABLES Final Res ult Performing Organization Address [facility] Phone Number INTERFACE SYSTEM Refer to clinic/hospital department * MAGNESIUM LEVEL (03/09/2006 9:00 AM DESIGN CHECKER) MAGNESIUM 1.8 1.5 - 2.5 mg/dL INTERFACE SYSTEM 03/09/2006 9:00 AM DESIGN CHECKER Gadiel Christensen MD CHEMISTRY ORDERABLES Final Res ult Performing Organization Address [facility] Phone Number INTERFACE SYSTEM Refer to clinic/hospital department * CANCER ANTIGEN 125 (03/09/2006 9:00 AM DESIGN CHECKER) CA 125 8 <=34 U/mL INTERFACE SYSTEM [...] a cancer screening test. 03/09/2006 9:00 AM DESIGN CHECKER Gadiel Christensen MD CHEMISTRY ORDERABLES Final Res ult INTERFACE SYSTEM Refer to clinic/hospital department * (ABNORMAL) LIPID PANEL (03/09/2006 9:00 AM DESIGN CHECKER) CHOLESTEROL 223(H) 100 - 199 mg/dL INTERFACE SYSTEM TRIGLYCERIDE 130 10 - 149 mg/dL INTERFACE SYSTEM HDL 83(H) 40 - 59 mg/dL INTERFACE SYSTEM CHOL/HDL RATIO 2.7 2.0 - 5.0 INTER FACE SYSTEM LDL CALCULATED 114(H) <=99 mg/dL INTERFACE SYSTEM LIPID PANEL COMMENT See Below INTERFACE SYSTEM Comment: The adult ATP and pediatric NCEP classifications for lipids are available on the [facility] Intranet at: [email or web address] Select: Lab Policies and Procedures Select: Reference Ranges - Lipids 03/09/2006 9:00 AM DESIGN CHECKER Gadiel Christensen MD CHEMISTRY ORDERABLES Final Res ult Performing Organization Address [facility] de Phone Number INTERFACE SYSTEM Refer to clinic/hospital department * COMPREHENSIVE METABOLIC PANEL (03/09/2006 9:00 AM DESIGN CHECKER) GLUCOSE 93 65 - 99 mg/dL INTERFACE [...] and non- Americans is available on the [facility] Intranet at: [email or web address] Select: Lab Policies and Procedures Select: Reference Ranges - GFR 03/09/2006 9:00 AM DESIGN CHECKER Gadiel Christensen MD CHEMISTRY ORDERABLES Final Res ult INTERFACE SYSTEM Refer to clinic/hospital department documented in this encounter Visit Diagnoses Diagnosis Essential hypertension, benign- Primary documented in this encounter Care Teams Hall Coordinator Relationship Specialty Start Date End Date Vitaly Manzanares MD [address] [place] [address] PCP - General Family Practice 05/19/22 documented as of this encounter
--- OUTSIDE RECORDS SUMMARY | 2025-02-02 13:28 | XMS_ITS | Encounter Summary ---
Author Organization [facility] Address [address] [place] [address] Care Team Providers Care Bottom Cementer Name Role Phone Vitaly Manzanares MD Primary Care Provider Encounter Details Date Type Department Care Team (Late Contact Info) Description 05/27/2001 Outpatient Historical [facility] Internal Medicine [place] [address] [place] [address] Gadiel Christensen MD [address] [place] [phone] Social History Tobacco Use Types Packs/Day Years Used Date Smoking Tobacco: Never Assessed Comments Unknown Sex and Gender Information Value Date Recorded Sex Assigned at Not on file Legal Sex Female 5:01 AM PIPE CONNECTOR Gender Identity Not on file Sexual Orientation Not on file documented as of this encounter Plan of Treatment Upcoming Encounters Date Type Department Care Team (Late Contact Info) Description 04/24/2025 10:30 AM PIPE CONNECTOR Office Visit [facility] At [address] [place] [address] Esteban Dueñas MD [address] [place] [address] [place] [address] documented as of this encounter Visit Diagnoses Not on filedocumented in this encounter Care Teams Bottom Cementer Relationship Specialty Start Date End Date Vitaly Manzanares MD [address] [place] [address] PCP - General Family Practice 05/19/22 documented as of this encounter
--- OUTSIDE RECORDS SUMMARY | 2025-02-02 13:28 | XMS_ITS | Encounter Summary ---
Author Organization [facility] Address [address] [place] [address] Care Team Providers Care Beef Boner Name Role Phone Vitaly Manzanares MD Primary Care Provider [phone] Encounter Details Date Type Department Care Team (Late st Contact Info) Description 02/23/2003 Outpatient Historical [facility] [address] [place] [address] Esteban Dueñas MD [address] [place] [address] [place] [address] Social History Tobacco Use Types Packs/Day Years Used Date Smoking Tobacco: Never Assessed Comments Unknown Sex and Gender Information Value Date Recorded Sex Assigned at Not on file Legal Sex Female 5:01 AM PITCH GATHERER Gender Identity Not on file Sexual Orientation Not on file documented as of this encounter Plan of Treatment Upcoming Encounters Date Type Department Care Team (Late Contact Info) Description 04/24/2025 10:30 AM PITCH GATHERER Office Visit [facility] Heart and Vascular At [address] [place] [address] Esteban Dueñas MD [address] [place] [address] [place] [address] documented as of this encounter Visit Diagnoses Not on filedocumented in this encounter Care Teams Beef Boner Relationship Specialty Start Date End Date Vitaly Manzanares MD [address] [place] [address] PCP - General Family Practice 05/19/22 documented as of this encounter
--- OUTSIDE RECORDS SUMMARY | 2025-02-02 13:28 | XMS_ITS | Encounter Summary ---
Author Organization [facility] Address [address] [place] [address] Care Team Providers Care Supervisor Vegetable Farming Name Role Phone Vitaly Manzanares MD Primary Care Provider Encounter Details Date Type Department Care Team (Late Contact Info) Description 02/26/2003 Outpatient Historical [facility] Internal Medicine [place] [address] [place] [address] Gadiel Christensen MD [address] [place] [phone] Social History Tobacco Use Types Packs/Day Years Used Date Smoking Tobacco: Never Assessed Comments Unknown Sex and Gender Information Value Date Recorded Sex Assigned at Not on file Legal Sex Female 5:01 AM CROWN IRONER Gender Identity Not on file Sexual Orientation Not on file documented as of this encounter Plan of Treatment Upcoming Encounters Date Type Department Care Team (Late Contact Info) Description 04/24/2025 10:30 AM CROWN IRONER Office Visit [facility] Heart and Vascular At [address] [place] [address] Esteban Dueñas MD [address] [place] [address] [address] [place] [address] documented as of this encounter Visit Diagnoses Not on filedocumented in this encounter Care Teams Supervisor Vegetable Farming Relationship Specialty Start Date End Date Vitaly Manzanares MD [address] [place] [address] PCP - General Family Practice 05/19/22 documented as of this encounter
== END 2025-02-02 13:26 | disposition home or self-care (01) ==
LOC: CHSIMG 13:25
PROVIDERS: PCP Family Medicine; Visit Provider Family Medicine
DX: M25.531 Pain in right wrist (principal); M19.031 Primary osteoarthritis, right wrist; M11.231 Other chondrocalcinosis, right wrist
CPT/HCPCS: 73110